=== PATIENT | female | born 1950 | race Caucasian/White ===

== ENCOUNTER 2018-01-31 08:42 | Day surgery (SDC) | payer MEDICARE, SELFPAY ==
[2018-01-31] VITALS (9 sets, daily range): BP systolic 86–135; BP diastolic 41–71; PULSE 76–86; RESP 16–19; TEMP 36.6–37.3; O2SAT 93–96; BMI 28.6
[2018-01-31 09:16] LABS: Bedside Glucose 194 mg/dL (70-110)
--- NOTE | 2018-01-31 09:43 | EGD_PTH ---
PATIENT: TACOS ESPINOZA LOC: EN U#:[id number] AGE/SX: 67/F ROOM: RE01/31/[address]: Dr. Cayden Nesbitt MD : [id number] BED: DIS: 01/31/2018 SPEC #: [id number] RECD: 01/31/18 11:54 STATUS: SO ERIS #: [id number] MELISSA: 01/31/18 09:[address]: Cayden Nesbitt DEPT: SURGICAL PATHOLOGY RECD BY: Marvin Celestin ENTERED: 01/31/18 12:49 SP TYPE: EGD BIOPSY OT DR: Dr. Tae Banegas DO Tissues: A - Small intestine biopsy B - Ascending colon C - COLON BIOPSY Procedures: Trichrome (control) Special Stain Group II Surgery Specimen Level IV HEADER OPERATION: EGD with biopsy, colonoscopy PRE-OP DIAGNOSIS: Gastric reflux, abdomen pain, history colon polyps TISSUE SUBMITTED: A ? Biopsy small bowel, rule out celiac sprue, B ? Polyp, ascending colon biopsy, C ? Random colon biopsy MICROSCOPIC DIAGNOSIS A. Small bowel, biopsy: Fragments of small intestinal mucosa, no pathologic diagnosis. B. Polyp ascending colon, biopsy: Fragments of tubular adenoma. C. Colon, random biopsy: Fragments of colonic mucosa, no pathologic diagnosis. See comment. SJ:wei 02/01/18 COMMENT C. Trichrome stain with matched control was used in the evaluation of the specimen and does not show any significant thickening of subepithelial collagen band. MICROSCOPIC DESCRIPTION Slides are reviewed. GROSS DESCRIPTION A - Received in fixative is one container labeled with the patient's name and designated small bowel biopsy, rule out celiac sprue. The specimen consists of multiple irregular fragments of light arguello soft tissue that in aggregate measure 0.3 x 0.3 x 0.1 cm. The specimen is totally submitted in one cassette. B - Received in fixative is one container labeled with the patient's name and designated polyp, ascending colon biopsy. The specimen consists of multiple irregular fragments of light arguello soft tissue that in aggregate measure 0.5 x 0.3 x 0.1 cm. The specimen is totally submitted in one cassette. C - Received in fixative is one container labeled with the patient's name and designated random colon biopsy. The specimen consists of multiple irregular fragments of light arguello soft tissue that in aggregate measure 1.5 x 0.3 x 0.1 cm. The specimen is totally submitted in one cassette. / SJ:rg 01/31/18 TC:1 CPT: 93945 x3, 96424
--- NOTE | 2018-01-31 09:59 | PCM.OPRPT ---
Problem List (1) Gastro-esophageal reflux disease without esophagitis Status: Acute (2) Epigastric pain Status: Acute (3) Personal history of colonic polyps Status: Acute Report of Operation Date of Procedure: 01/31/18 Pre-Operative Diagnosis: K 21.9 gastroesophageal reflux disease without esophagitis. r10.13 epigastric abdominal pain. Z86.010 personal history of colonic polyps Post-Operative Diagnosis: Same Surgery/Procedure Performed:: 1. 16272 esophagogastroduodenoscopy with biopsy. 2. 30324 colonoscopy with biopsy of polyps and random colon biopsies Type of Anesthesia:: MAC Anesthesiologist: Alessio Pickard Description of Procedure: Patient was brought into the endoscopy suite. Back of her throat was sprayed with Cetacaine spray. A bite-block was placed. She was placed in the left lateral decubitus position. She was given graded anesthesia. Scope was inserted in the back of the oropharynx and directed down through the esophagus into the stomach and into the duodenum without difficulty. Operative findings: 1. Duodenum: Normal appearance no mass lesions biopsy for celiac sprue was obtained there was no ulcers. 2. Stomach: Normal appearance no mass lesions minimal gastritis was identified biopsy for H. pylori was obtained. 3. Esophagus: Z line was located at 36 cm. It was normal. Hiatal hernia with the diaphragmatic hiatus was located at 40 cm. There is no signs of erythema and here. There was no mass lesions here. And there were no Schatzki's ring. Colonoscope was inserted into the rectum and directed through the sigmoid colon, descending colon, transverse colon, ascending colon, to the cecum. Operative findings: 1. Cecum: Normal appearance no mass lesions normal ileocecal valve. There was a small hyperplastic polyp which was ablated completely with biopsy forceps and sent to pathology for permanent sectioning 2. Ascending colon: Normal appearance no mass lesions. 3. Transverse colon: Normal appearance no mass lesions. 4. Descending colon: Normal appearance no mass lesions. 5. Sigmoid colon normal appearance no mass lesions scattered diverticuli identified. 6. Rectum: Normal appearance no mass lesions few internal hemorrhoids were noted on retroflexion. Random colonic biopsies were performed as well. Scope was withdrawn digital rectal exam was performed showing few external hemorrhoids as well. Patient will need another colonoscopy in 3 years. With regards to her upper scope. She is still having persistent and difficulty with this I think she needs to be worked up with a EGD in 48 hour pH probe as well as esophageal manometry. It is unclear whether or not she would benefit from a hiatal hernia surgery but I think it would be monahan for us just to have the data so that we knew if it would be possible to perform on her. - Admit VTE Documentation VTE Present on Admission: No VTE Mechan Device Prophylaxis: None VTE Pharm Prophylaxis ordered?: No Reason prophylaxis not ordered:: Treatment Not Indicated
--- NOTE | 2018-01-31 10:09 | OP.PCM_ITS ---
Problem List (1) Gastro-esophageal reflux disease without esophagitis Status: Acute (2) Epigastric pain Status: Acute (3) Personal history of colonic polyps Status: Acute Report of Operation Date of Procedure: 01/31/18 Pre-Operative Diagnosis: K 21.9 gastroesophageal reflux disease without esophagitis. r10.13 epigastric abdominal pain. Z86.010 personal history of colonic polyps Post-Operative Diagnosis: Same Surgery/Procedure Performed:: 1. 35539 esophagogastroduodenoscopy with biopsy. 2. 20661 colonoscopy with biopsy of polyps and random colon biopsies Type of Anesthesia:: MAC Anesthesiologist: Alessio Pickard Description of Procedure: Patient was brought into the endoscopy suite. Back of her throat was sprayed with Cetacaine spray. A bite-block was placed. She was placed in the left lateral decubitus position. She was given graded anesthesia. Scope was inserted in the back of the oropharynx and directed down through the esophagus into the stomach and into the duodenum without difficulty. Operative findings: 1. Duodenum: Normal appearance no mass lesions biopsy for celiac sprue was obtained there was no ulcers. 2. Stomach: Normal appearance no mass lesions minimal gastritis was identified biopsy for H. pylori was obtained. 3. Esophagus: Z line was located at 36 cm. It was normal. Hiatal hernia with the diaphragmatic hiatus was located at 40 cm. There is no signs of erythema and here. There was no mass lesions here. And there were no Schatzki's ring. Colonoscope was inserted into the rectum and directed through the sigmoid colon , descending colon, transverse colon, ascending colon, to the cecum. Operative findings: 1. Cecum: Normal appearance no mass lesions normal ileocecal valve. There was a small hyperplastic polyp which was ablated completely with biopsy forceps and sent to pathology for permanent sectioning 2. Ascending colon: Normal appearance no mass lesions. 3. Transverse colon: Normal appearance no mass lesions. 4. Descending colon: Normal appearance no mass lesions. 5. Sigmoid colon normal appearance no mass lesions scattered diverticuli identified. 6. Rectum: Normal appearance no mass lesions few internal hemorrhoids were noted on retroflexion. Random colonic biopsies were performed as well. Scope was withdrawn digital rectal exam was performed showing few external hemorrhoids as well. Patient will need another colonoscopy in 3 years. With regards to her upper scope. She is still having persistent and difficulty with this I think she needs to be worked up with a EGD in 48 hour pH probe as well as esophageal manometry. It is unclear whether or not she would benefit from a hiatal hernia surgery but I think it would be monahan for us just to have the data so that we knew if it would be possible to perform on her. - Admit VTE Documentation VTE Present on Admission: No VTE Mechan Device Prophylaxis: None VTE Pharm Prophylaxis ordered?: No Reason prophylaxis not ordered:: Treatment Not Indicated
== END 2018-01-31 10:45 | disposition home or self-care (01) ==
LOC: EN 08:42 → AC 08:43
PROVIDERS: Family Provider Student in an Organized Health Care Education/Training Program; PCP Student in an Organized Health Care Education/Training Program; Visit Provider Surgery
PROC: 0DJD8ZZ Inspection of Lower Intestinal Tract, Via Natural or Artificial Opening Endoscopic (ICD-10-PCS; CPT 45378; principal; 2018-01-31 09:25)
DX: D12.2 Benign neoplasm of ascending colon (principal); K44.9 Diaphragmatic hernia without obstruction or gangrene; K64.4 Residual hemorrhoidal skin tags; K64.8 Other hemorrhoids; K21.9 Gastro-esophageal reflux disease without esophagitis; G43.A0 Cyclical vomiting, in migraine, not intractable; R10.13 Epigastric pain; I12.9 Hypertensive chronic kidney disease with stage 1 through stage 4 chronic kidney disease, or unspecified chronic kidney disease; E11.22 Type 2 diabetes mellitus with diabetic chronic kidney disease; N18.3 Chronic kidney disease, stage 3 (moderate); I25.10 Atherosclerotic heart disease of native coronary artery without angina pectoris; J44.9 Chronic obstructive pulmonary disease, unspecified; E11.42 Type 2 diabetes mellitus with diabetic polyneuropathy; I48.92 Unspecified atrial flutter; E78.00 Pure hypercholesterolemia, unspecified; G25.81 Restless legs syndrome; I73.9 Peripheral vascular disease, unspecified; G62.9 Polyneuropathy, unspecified; F32.9 Major depressive disorder, single episode, unspecified; Z78.0 Asymptomatic menopausal state; Z86.010 Personal history of colon polyps; Z79.4 Long term (current) use of insulin; Z79.01 Long term (current) use of anticoagulants; Z79.891 Long term (current) use of opiate analgesic; Z79.899 Other long term (current) drug therapy; Z85.828 Personal history of other malignant neoplasm of skin; Z85.528 Personal history of other malignant neoplasm of kidney; Z87.19 Personal history of other diseases of the digestive system; Z87.891 Personal history of nicotine dependence; Z95.1 Presence of aortocoronary bypass graft; Z90.5 Acquired absence of kidney
CPT/HCPCS: 43239; 45380; 82962; 88305; 88313; J7120; J2405

== ENCOUNTER 2018-02-27 18:41 | Emergency (ER) | payer MEDICARE, SELFPAY ==
[2018-02-27 18:42] VITALS: BP 146/74; PULSE 117; RESP 22; TEMP 36.2; O2SAT 96; BMI 26.9
--- NOTE | 2018-02-27 19:01 | ED.VISSUMM ---
- ER Visit Summary Date of Service: 02/27/18 Chief Complaint: [] Abdominal pain, vomiting History of Present Illness: The patient is a 67 F [] with a history of cyclic vomiting syndrome complains of nausea and vomiting and abdominal discomfort beginning yesterday. Patient reports she is scheduled to go to [facility] for an experimental trial for this underlying condition March 11. She denies hematemesis. She denies fevers. Denies chest pain. Physical Examination: [] BP 146/74. Temperature 97.1. Heart rate 117. Respiratory rate 22. Pulse ox 96% on room air. She is a 7-year-old female no acute distress. Cardiovascular exam is regular rate and rhythm. Lungs are clear to auscultation. Abdomen is soft with mild diffuse tenderness without guarding rebound tenderness. Remainder of exam is unremarkable. Test Results: [] CBC and BMP within normal limits. LFTs normal. Emergency Department Course and Treatment: [] Patient given intravenous fluids, Phenergan, Dilaudid. On serial examination patient had improvement of symptoms and was discharged to follow-up with her primary care physician. Treatment Plan: [] Follow-up with PCP and [facility] for experimental trials. Disposition: [] Discharge, stable. Impression: [] Abdominal pain Vomiting History of cyclic vomiting syndrome This note was generated with [employer] dictation software. It may contain incorrect words, spelling, and punctuation that were not noted in review of the chart prior to signing ED Disposition - Plan for ED Patient: Chief Complaint: Nausea/Vomiting Referrals: Tae Banegas DO [Primary Care Provider] -
[2018-02-27] MEDS: HYDROmorphone 1 MG/ML Syringe IV (19:04)
[2018-02-27] MEDS: proMETHazine 25 MG/ML Syringe 6.25 MG IV (19:04)
--- NOTE | 2018-02-27 19:04 | ED.DCSUM_ITS ---
- ER Visit Summary Date of Service: 02/27/18 Chief Complaint: [] Abdominal pain, vomiting History of Present Illness: The patient is a 67 F [] with a history of cyclic vomiting syndrome complains of nausea and vomiting and abdominal discomfort beginning yesterday. Patient reports she is scheduled to go to [facility] for an experimental trial for this underlying condition March 11. She denies hematemesis. She denies fevers. Denies chest pain. Physical Examination: [] BP 146/74. Temperature 97.1. Heart rate 117. Respiratory rate 22. Pulse ox 96% on room air. She is a 7-year-old female no acute distress. Cardiovascular exam is regular rate and rhythm. Lungs are clear to auscultation. Abdomen is soft with mild diffuse tenderness without guarding rebound tenderness. Remainder of exam is unremarkable. Test Results: [] CBC and BMP within normal limits. LFTs normal. Emergency Department Course and Treatment: [] Patient given intravenous fluids, Phenergan, Dilaudid. On serial examination patient had improvement of symptoms and was discharged to follow-up with her primary care physician. Treatment Plan: [] Follow-up with PCP and [facility] for experimental trials. Disposition: [] Discharge, stable. Impression: [] Abdominal pain Vomiting History of cyclic vomiting syndrome This note was generated with [employer] dictation software. It may contain incorrect words, spelling, and punctuation that were not noted in review of the chart prior to signing ED Disposition - Plan for ED Patient: Chief Complaint: Nausea/Vomiting Referrals: Tae Banegas DO [Primary Care Provider] -
[2018-02-27 19:19] LABS: Absolute Lymphocyte Count 1.54 X10^3/ul (0.83-4.51); Absolute Neutrophil Count 7.9 X10^3/uL (2.0-7.7); Basophil# 0.01 X10^3/uL; Basophil% 0.1 % (0-1); Eosinophil# 0.01 X10^3/uL; Eosinophils% 0.1 % (0-5); Hematocrit 39.3 % (37-47); Hemoglobin 13.1 g/dl (12.0-15.0); Lymphocyte # 1.54 X10^3/ul (4.0); Lymphocyte % 15.4 % (19-41); Mean Corp Hgb Conc 33.3 g/gl (32-36); Mean Corpuscular Hgb 30.1 pg (27.0-32.0); Mean Corpuscular Volume 90.3 fL (81-99); Mean Platelet Vol. 8.7 fl (6.2-12.0); Monocyte# 0.52 X10^3/uL; Monocyte% 5.2 % (0-10); Neutrophil # 7.89 X10^3/uL (2.7-7.7); Platelet Count 273 K/mm3 (150-450); RBC Distribution Width CV 14.3 % (11.6-14.6); RBC Distribution Width SD 47.1 fl (35.1-43.9); Red Blood Count 4.35 M/mm3 (4.2-5.4)
[2018-02-27 19:21] LABS: POSITIVE COUNT NO; POSITIVE DIFFERENTIAL NO; POSITIVE MORPHOLOGY NO
[2018-02-27 19:31] LABS: AST(SGOT) 22 U/L (15-37); Alanine Aminotransfer ALT/SGPT 20 U/L (13-56); Albumin, Serum 3.8 g/dL (3.2-5.0); Alkaline Phosphatase 94 U/L (45-117); Anion Gap 12 (5-15); BUN 21 mg/dL (7-18); BUN/Creat Ratio 14.1 RATIO (10-20); Chloride 102 mmol/L (98-107); Creatinine, Serum 1.49 mg/dL (0.55-1.02); EST Glomerular Filtration Rate 37 mL/min (>60); Est Glom Filt Rate - Afr Amer 45 mL/min (>60); Estimated Creatinine Clearance 39.34 ml/min; Glucose 161 mg/dL (74-106); Potassium 3.4 mmol/L (3.5-5.1); Protein, Total 7.8 g/dL (6.4-8.2); Sodium Level 140 mmol/L (136-145)
--- NOTE | 2018-02-27 19:45 | ED.DEP ---
ED Disposition - Plan for ED Patient: Disposition: Home or Assisted Living Chief Complaint: Nausea/Vomiting Instructions: When Your Child Has Cyclic Vomiting Syndrome ([facility]), ED Nausea Vomiting Referrals: Tae Banegas DO [Primary Care Provider] -
[2018-02-27] MEDS: HYDROmorphone 0.5 MG/0.5 ML SYRINGE IV (19:52)
[2018-02-27 20:48] VITALS: BP 104/75; PULSE 100; RESP 17; RESP 19
== END 2018-02-27 20:50 | disposition home or self-care (01) ==
PROVIDERS: Emergency Provider Emergency Medicine; Family Provider Student in an Organized Health Care Education/Training Program; PCP Student in an Organized Health Care Education/Training Program
DX: G43.A0 Cyclical vomiting, in migraine, not intractable (principal); I25.10 Atherosclerotic heart disease of native coronary artery without angina pectoris; E11.9 Type 2 diabetes mellitus without complications; I10 Essential (primary) hypertension; Z79.01 Long term (current) use of anticoagulants; Z79.4 Long term (current) use of insulin; Z79.899 Other long term (current) drug therapy; Z85.528 Personal history of other malignant neoplasm of kidney; Z95.1 Presence of aortocoronary bypass graft
CPT/HCPCS: 80053; 85025; 96361; 96374; 96375; 96376; 99283; J7030; J7040; A4216

== ENCOUNTER → 2018-04-08 06:00 | Outpatient (CLI) | payer MEDICARE, SELFPAY ==
--- NOTE | 2018-04-08 08:41 | STRESSREP ---
Stress Test Report Pharmacologic myocardial perfusion stress test. 67-year-old lady with a history of atrial fibrillation and hypertension. Medications Humulin amlodipine atorvastatin metoprolol. Stress protocol: Resting EKG demonstrates normal sinus rhythm with a rate of 81 bpm normal intervals and noted resting blood pressure is 132/74 mmHg. 0.4 mg of regadenoson was infused per usual protocol followed by rapid intravenous saline flush injection continuous EKG monitoring was performed. The maximum heart rate attained was 90 bpm which was 58% maximum predicted heart rate the maximum workload attained was 1 metabolic equivalent. Patient maintained sinus rhythm throughout the recording. The resting blood pressure is 132/74 with a final blood pressure 120/70. Myocardial perfusion protocol. 11.0 mCi of technetium 99m sestamibi was injected. Stress images were obtained stress and rest images were reconstructed and compared in the short axis vertical long and horizontal long axis. Gated images were also obtained. Perfusion SPECT analysis: Review of the stress images demonstrate normal uptake of tracer noted in all areas of the myocardium. The resting images similarly demonstrate normal uptake of tracer noted in all areas of the myocardium. No areas of reversibility are noted suggest ischemia and no previous infarct is noted. Gated SPECT analysis: The gated ejection fraction is 74%. Conclusion: Normal pharmacologic myocardial perfusion stress test with no evidence of ischemia. Preserved ejection fraction.
== END ==
LOC: CVS 06:02
PROVIDERS: Family Provider Student in an Organized Health Care Education/Training Program; PCP Student in an Organized Health Care Education/Training Program; Visit Provider Student in an Organized Health Care Education/Training Program
DX: R06.09 Other forms of dyspnea (principal); I10 Essential (primary) hypertension; I48.2 Chronic atrial fibrillation; I73.9 Peripheral vascular disease, unspecified
CPT/HCPCS: 78452; 93017; A9500; A4216; J2785

== ENCOUNTER 2018-05-05 04:46 | Emergency (ER) | payer MEDICARE, SELFPAY ==
[2018-05-05 04:47] VITALS: BP 159/99; RESP 18; TEMP 36.5; O2SAT 94; BMI 28.3
--- NOTE | 2018-05-05 05:11 | ED.VISSUMM ---
- ER Visit Summary Date of Service: 05/05/18 Chief Complaint: Nausea and vomiting History of Present Illness: The patient is a 67 F with cyclic vomiting syndrome who presents for nausea and vomiting for 4 days. Patient states she is having her usual cyclic vomiting symptoms, with diffuse abdominal pain, nausea and vomiting. She is in an experimental trial with [facility] with an intranasal medication that she states is not working. She has tried Zofran without any relief at home. She has had difficulty with oral intake. No diarrhea, fever, chest pain, shortness of breath, urinary symptoms or other complaints. Patient states this is typical for her cyclic vomiting syndrome and she is not concerned that something else is going on. Physical Examination: Vital signs: afebrile, hemodynamically stable, no hypoxia on room air General: well nourished, well developed, in no distress, appears uncomfortable laying in bed Skin: warm, dry, no rash, no pallor HEENT: normocephalic and atraumatic; PERRL, EOMI, moist mucous membranes Cardiovascular: regular rate and rhythm without murmurs, no peripheral edema, 2+ pulses all distal extremities Respiratory: No increased work of breathing, lungs are clear to auscultation bilaterally, no rales, rhonchi or wheezing Abdominal: Abdomen is soft, nontender with normoactive bowel sounds, no guarding or rebound, no masses MSK: Moves all extremities, no deformities, normal strength Neuro: Awake and alert, oriented ?4. No facial droop, sensation and motor function intact and symmetric Test Results: Abnormal Lab Results 05/05/18 05/05/18 05/05/18 04:56 04:56 05:35 WBC 14.1 H RBC 5.16 Hgb 15.8 H Hct 45.9 MCV 89.0 MCH 30.6 MCHC 34.4 RDW 13.6 RDW Differential 43.5 Plt Count 268 MPV 8.9 Immature Gran % (Auto) 0.100 Neut % (Auto) 81.5 H Lymph % (Auto) 14.1 L [place] % (Auto) 4.0 Eos % (Auto) 0.2 Baso % (Auto) 0.1 Absolute Neuts (auto) 11.5 H Absolute Lymphs (auto) 1.99 Total Counted Not Reportable Sodium Cancelled 134 L Potassium Cancelled 3.1 L Chloride Cancelled 93 L Carbon Dioxide Cancelled 30.0 Anion Gap Cancelled 11 BUN Cancelled 29 H Creatinine Cancelled 1.22 H Estim Creat Clear Calc Cancelled 48.04 Est GFR (MDRD) Af Amer Cancelled 57 L Est GFR (MDRD) Non-Af Cancelled 47 L BUN/Creatinine Ratio Cancelled 23.8 H Glucose Cancelled 198 H Calcium Cancelled 7.2 L Total Bilirubin Cancelled 0.50 AST Cancelled 15 ALT Cancelled 18 Alkaline Phosphatase Cancelled 73 Total Protein Cancelled 6.8 Albumin Cancelled 3.3 Globulin Cancelled 3.5 Albumin/Globulin Ratio Cancelled 0.9 Lipase Cancelled 124 Emergency Department Course and Treatment: Patient presents with cyclic vomiting syndrome, and states that this is very typical for her symptoms. Given that she has been having symptoms for 4 days, lab work was performed to evaluate for any electrolyte derangements. She had mild hypokalemia of 3.1. Otherwise no significant findings. She was given IV fluids for hydration and was given a dose of Haldol for treatment of the abdominal discomfort and nausea. After medication, she had great improvement in her symptoms and stated she felt much better. She was given 1 dose of oral potassium for repletion. She will continue her home medications and treatment as needed. Patient was discharged home in improved condition. Treatment Plan: [] Disposition: [] Impression: Cyclic vomiting syndrome This note was generated with [email or web address] dictation software. It may contain incorrect words, spelling, and punctuation that were not noted in review of the chart prior to signing ED Disposition - Plan for ED Patient: Disposition: Home or Assisted Living Chief Complaint: Nausea/Vomiting Instructions: ED Nausea Vomiting Referrals: Tae Banegas, [Primary Care Provider] - 3-5 Days if not improving Additional Instructions: Please continue your home medications as needed for your vomiting. Follow-up with your doctor if you continue to have poorly controlled symptoms. If you have any worsening of your condition or any new concerning symptoms, please return immediately to the emergency department for another evaluation.
[2018-05-05 05:28] LABS: Absolute Lymphocyte Count 1.99 X10^3/ul (0.83-4.51); Absolute Neutrophil Count 11.5 X10^3/uL (2.0-7.7); Basophil# 0.02 X10^3/uL; Basophil% 0.1 % (0-1); Eosinophil# 0.03 X10^3/uL; Eosinophils% 0.2 % (0-5); Hematocrit 45.9 % (37-47); Hemoglobin 15.8 g/dl (12.0-15.0); Lymphocyte # 1.99 X10^3/ul (4.0); Lymphocyte % 14.1 % (19-41); Mean Corp Hgb Conc 34.4 g/gl (32-36); Mean Corpuscular Hgb 30.6 pg (27.0-32.0); Mean Platelet Vol. 8.9 fl (6.2-12.0); Monocyte# 0.56 X10^3/uL; Neutrophil # 11.49 X10^3/uL (2.7-7.7); Neutrophil % 81.5 % (47-70); POSITIVE COUNT NO; POSITIVE DIFFERENTIAL NO; POSITIVE MORPHOLOGY NO; Platelet Count 268 K/mm3 (150-450); RBC Distribution Width CV 13.6 % (11.6-14.6); RBC Distribution Width SD 43.5 fl (35.1-43.9); Red Blood Count 5.16 M/mm3 (4.2-5.4); White Blood Count 14.1 K/mm3 (4.4-11.0)
[2018-05-05] MEDS: 0.9% Normal Saline 1,000 ML 1000 ML IV (05:29)
[2018-05-05] MEDS: Haloperidol Lactate 5 MG/ML Vial 2 MG IV (05:30)
[2018-05-05 06:21] LABS: ALB/GLOB Ratio 0.9 RATIO (0.9-2.4); AST(SGOT) 15 U/L (15-37); Alanine Aminotransfer ALT/SGPT 18 U/L (13-56); Albumin, Serum 3.3 g/dL (3.2-5.0); Alkaline Phosphatase 73 U/L (45-117); Anion Gap 11 (5-15); BUN 29 mg/dL (7-18); BUN/Creat Ratio 23.8 RATIO (10-20); Calcium,Total 7.2 mg/dL (8.5-10.1); Chloride 93 mmol/L (98-107); Creatinine, Serum 1.22 mg/dL (0.55-1.02); EST Glomerular Filtration Rate 47 mL/min (>60); Est Glom Filt Rate - Afr Amer 57 mL/min (>60); Estimated Creatinine Clearance 48.04 ml/min; Globulin 3.5 g/dL (2.2-4.2); Glucose 198 mg/dL (74-106); Lipase 124 U/L (73-393); Potassium 3.1 mmol/L (3.5-5.1); Protein, Total 6.8 g/dL (6.4-8.2); Sodium Level 134 mmol/L (136-145)
--- NOTE | 2018-05-05 07:04 | ED.DEP ---
ED Disposition - Plan for ED Patient: Disposition: Home or Assisted Living Chief Complaint: Nausea/Vomiting Instructions: ED Nausea Vomiting Referrals: Tae Banegas DO [Primary Care Provider] - 3-5 Days if not improving Additional Instructions: Please continue your home medications as needed for your vomiting. Follow-up with your doctor if you continue to have poorly controlled symptoms. If you have any worsening of your condition or any new concerning symptoms, please return immediately to the emergency department for another evaluation.
[2018-05-05 07:20] VITALS: BP 114/79; PULSE 100; RESP 16; O2SAT 96
== END 2018-05-05 07:21 | disposition home or self-care (01) ==
PROVIDERS: Emergency Provider Emergency Medicine; Family Provider Student in an Organized Health Care Education/Training Program; PCP Student in an Organized Health Care Education/Training Program
DX: G43.A0 Cyclical vomiting, in migraine, not intractable (principal); R10.84 Generalized abdominal pain; I25.10 Atherosclerotic heart disease of native coronary artery without angina pectoris; E11.9 Type 2 diabetes mellitus without complications; I10 Essential (primary) hypertension; Z79.4 Long term (current) use of insulin; Z79.01 Long term (current) use of anticoagulants; Z79.899 Other long term (current) drug therapy; Z87.891 Personal history of nicotine dependence; Z85.528 Personal history of other malignant neoplasm of kidney; E87.6 Hypokalemia
CPT/HCPCS: 80053; 83690; 85025; 96361; 96374; 99285; J7030; A4216

== ENCOUNTER 2018-06-09 17:11 | Emergency (ER) | payer MEDICARE, SELFPAY ==
[2018-06-09 17:12] VITALS: BP 125/76; PULSE 116; RESP 18; TEMP 36.8; O2SAT 95; BMI 41.5
--- NOTE | 2018-06-09 17:34 | EKG12_ITS ---
Test Reason : NASEA AND VOMIT Blood Pressure : / mmHG Vent. Rate : 103 BPM Atrial Rate : 103 BPM P-R Int : 142 ms QRS Dur : 088 ms QT Int : 368 ms P-R-T Axes : 058 057 060 degrees QTc Int : 482 ms Sinus tachycardia with Premature supraventricular complexes Nonspecific ST abnormality Abnormal ECG Confirmed by ALEXANDRA HUMPHREY, EMY ([id number]), editor at large SOLEDAD REESE ([id number] on 06/10/2018 1:01:02 PM Referred By: RALF Confirmed By:EMY MORRIS MD
[2018-06-09] MEDS: 0.9% Normal Saline 1,000 ML 1000 ML IV (17:39)
[2018-06-09] MEDS: proMETHazine 25 MG/ML Syringe 12.5 MG IV (17:40)
[2018-06-09 17:48] VITALS: BP 112/65; BP 112/70; BP 114/84; PULSE 103; PULSE 107; PULSE 121
[2018-06-09 17:52] LABS: Absolute Lymphocyte Count 1.74 X10^3/ul (0.83-4.51); Basophil# 0.01 X10^3/uL; Basophil% 0.1 % (0-1); Eosinophil# 0.03 X10^3/uL; Eosinophils% 0.3 % (0-5); Hematocrit 41.9 % (37-47); Hemoglobin 14.8 g/dl (12.0-15.0); Lymphocyte # 1.74 X10^3/ul (4.0); Lymphocyte % 18.2 % (19-41); Mean Corp Hgb Conc 35.3 g/gl (32-36); Mean Corpuscular Hgb 31.1 pg (27.0-32.0); Mean Platelet Vol. 9.1 fl (6.2-12.0); Monocyte# 0.72 X10^3/uL; Monocyte% 7.5 % (0-10); Neutrophil # 7.04 X10^3/uL (2.7-7.7); Neutrophil % 73.7 % (47-70); POSITIVE COUNT NO; POSITIVE DIFFERENTIAL NO; POSITIVE MORPHOLOGY NO; Platelet Count 307 K/mm3 (150-450); RBC Distribution Width CV 11.7 % (11.6-14.6); RBC Distribution Width SD 37.2 fl (35.1-43.9); Red Blood Count 4.76 M/mm3 (4.2-5.4); White Blood Count 9.6 K/mm3 (4.4-11.0)
[2018-06-09 18:07] LABS: AST(SGOT) 26 U/L (15-37); Alanine Aminotransfer ALT/SGPT 27 U/L (13-56); Alkaline Phosphatase 94 U/L (45-117); Anion Gap 13 (5-15); BUN 38 mg/dL (7-18); BUN/Creat Ratio 22.6 RATIO (10-20); Calcium,Total 9.1 mg/dL (8.5-10.1); Chloride 90 mmol/L (98-107); Creatinine, Serum 1.68 mg/dL (0.55-1.02); EST Glomerular Filtration Rate 32 mL/min (>60); Est Glom Filt Rate - Afr Amer 39 mL/min (>60); Estimated Creatinine Clearance 34.42 ml/min; Globulin 4.1 g/dL (2.2-4.2); Glucose 264 mg/dL (74-106); Lipase 121 U/L (73-393); Potassium 3.3 mmol/L (3.5-5.1); Protein, Total 8.1 g/dL (6.4-8.2); Sodium Level 128 mmol/L (136-145)
[2018-06-09 18:08] LABS: Bacteria 0 SEEN /hpf (None Seen); Mucous, Urine 0 SEEN /hpf (<or=2+)
[2018-06-09 18:27] LABS: Color, Urine Yellow (Yellow); Glucose, Dipstick 50 mg/dl (Normal); Ketone-Dipstick Negative (Negative); Leukocyte Esterase-Dipstick 500 /ul (Negative); Nitrite-Dipstick Negative (Negative); Occult Blood-Urine 10 /ul (Negative); Protein-Dipstick 30 mg/dl (Negative); Specific Gravity, Urine 1.015 (1.002-1.030); Urine Bilirubin Dipstick Negative (Negative); Urine Clarity Sl. Cloudy (Clear); Urine Urobilinogen Normal (Normal); Urine pH 6.5 (5.0 - 8.0)
[2018-06-09 18:33] LABS: Red Blood Cells-Urine 0-5 SEEN /hpf (0-5); Squamous Epithelial Cells - UA 0-5 SEEN /hpf (5-10); White Blood Cells 5-10 SEEN /hpf (0-5)
--- NOTE | 2018-06-09 18:33 | ED.VISSUMM ---
- ER Visit Summary Date of Service: 06/09/18 Chief Complaint: Vomiting] History of Present Illness: The patient is a 68 F ] presents to the emergency department with complaint of vomiting that started a week ago. Patient for the first 2 days also had diarrhea but that has since resolved. Patient has a history of cyclic vomiting syndrome and feels she is having a repeat episode of such. Patient denies any fevers. Patient denies any abdominal pain. Patient had some dysuria earlier in the week but has since resolved. She denies hematuria or frequency. Patient also with history of coronary artery disease, diabetes, hypertension, history of remote kidney cancer. Patient's had prior appendectomy and hysterectomy. 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 Physical Examination: [HEENT-PERRLA, EOMI. Cranial nerves II through XII grossly intact. TMs clear. Mucous membranes slightly dry. No adenopathy. Cardiovascular-regular rate and rhythm without murmur or ectopy Lungs-clear to auscultation, chest wall stable without crepitus or subcu emphysema Abdomen-normoactive bowel sounds, soft, nontender, no rebound or rigidity, no peritoneal signs. Extremities-intact ?4, normal range of motion, normal pulses, atraumatic] Test Results: [CBC with differential obtained showed white blood cell count 9.6, hemoglobin 14.8, hematocrit 42, platelets 307. Chemistry showed a sodium of 128 potassium 3.3, chloride 90, CO2 25, glucose 264, BUN 34, creatinine 1.68. LFTs were normal. Lipase was 121. Troponin was less than 0.015.] Emergency Department Course and Treatment: [Patient was given a liter normal same fluid bolus as well as Phenergan 12.5 mg IV. Patient was able to tolerate a p.o. challenge and is feeling improved.] Treatment Plan: [Patient will be given a prescription for Phenergan tablets and suppositories and advised to push fluids and follow-up with her primary care physician within next 3-5 days. Patient advised to return if persistent vomiting, dehydration, or condition should worsen in any way.] Disposition: [Discharged home in stable condition] Impression: [Vomiting-suspect cyclic vomiting syndrome] This note was generated with [employer] dictation software. It may contain incorrect words, spelling, and punctuation that were not noted in review of the chart prior to signing ED Disposition - Plan for ED Patient: Chief Complaint: Nausea/Vomiting Referrals: Tae Banegas DO [Primary Care Provider] -
[2018-06-09 18:34] LABS: Amorphous Sediment 1+ URATE
--- NOTE | 2018-06-09 18:37 | ED.DCSUM_ITS ---
- ER Visit Summary Date of Service: 06/09/18 Chief Complaint: Vomiting] History of Present Illness: The patient is a 68 F ] presents to the emergency department with complaint of vomiting that started a week ago. Patient for the first 2 days also had diarrhea but that has since resolved. Patient has a history of cyclic vomiting syndrome and feels she is having a repeat episode of such. Patient denies any fevers. Patient denies any abdominal pain. Patient had some dysuria earlier in the week but has since resolved. She denies hematuria or frequency. Patient also with history of coronary artery disease, diabetes, hypertension, history of remote kidney cancer. Patient's had prior appendectomy and hysterectomy. 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 Physical Examination: [HEENT-PERRLA, EOMI. Cranial nerves II through XII grossly intact. TMs clear. Mucous membranes slightly dry. No adenopathy. Cardiovascular-regular rate and rhythm without murmur or ectopy Lungs-clear to auscultation, chest wall stable without crepitus or subcu emphysema Abdomen-normoactive bowel sounds, soft, nontender, no rebound or rigidity, no peritoneal signs. Extremities-intact ?4, normal range of motion, normal pulses, atraumatic] Test Results: [CBC with differential obtained showed white blood cell count 9.6 , hemoglobin 14.8, hematocrit 42, platelets 307. Chemistry showed a sodium of 128 potassium 3.3, chloride 90, CO2 25, glucose 264, BUN 34, creatinine 1.68. LFTs were normal. Lipase was 121. Troponin was less than 0.015.] Emergency Department Course and Treatment: [Patient was given a liter normal same fluid bolus as well as Phenergan 12.5 mg IV. Patient was able to tolerate a p.o. challenge and is feeling improved.] Treatment Plan: [Patient will be given a prescription for Phenergan tablets and suppositories and advised to push fluids and follow-up with her primary care physician within next 3-5 days. Patient advised to return if persistent vomiting, dehydration, or condition should worsen in any way.] Disposition: [Discharged home in stable condition] Impression: [Vomiting-suspect cyclic vomiting syndrome] This note was generated with [employer] dictation software. It may contain incorrect words, spelling, and punctuation that were not noted in review of the chart prior to signing ED Disposition - Plan for ED Patient: Chief Complaint: Nausea/Vomiting Referrals: Tae Banegas DO [Primary Care Provider] -
--- NOTE | 2018-06-09 18:37 | ED.DEP ---
ED Disposition - Plan for ED Patient: Chief Complaint: Nausea/Vomiting Instructions: ED Nausea Vomiting Prescriptions: proMETHazine suppository [Phenergan Suppository] 25 mg RECTAL Q6H PRN PRN #6 suppos. PRN Reason: Nausea proMETHazine tablet [Phenergan] 25 mg PO Q6H PRN PRN #10 tab PRN Reason: Nausea Referrals: Tae Banegas DO [Primary Care Provider] - 3-5 Days
--- NOTE | 2018-06-09 19:02 | ED.RN ---
REVIEWED D/C INSTRUCTIONS, FOLLOW UP CARE, PRESCRIPTIONS, AND S/S THAT WOULD WARRANT A RETURN TO THE ED WITH PT. PT VERBALIZED AN UNDERSTANDING AND DENIES FURTHER QUESTIONS FOR THIS RN. PT SKIN P/W/D, RESP EVEN AND UNLABORED, PT A&O X 3, NO DISTRESS NOTED. PT AMBULATED OUT OF ED, GAIT STEADY.
== END 2018-06-09 19:03 | disposition home or self-care (01) ==
PROVIDERS: Emergency Provider Emergency Medicine; Family Provider Student in an Organized Health Care Education/Training Program; PCP Student in an Organized Health Care Education/Training Program
DX: G43.A0 Cyclical vomiting, in migraine, not intractable (principal); I25.10 Atherosclerotic heart disease of native coronary artery without angina pectoris; E11.9 Type 2 diabetes mellitus without complications; I10 Essential (primary) hypertension; Z79.01 Long term (current) use of anticoagulants; Z79.4 Long term (current) use of insulin; Z79.891 Long term (current) use of opiate analgesic; Z79.899 Other long term (current) drug therapy; Z85.528 Personal history of other malignant neoplasm of kidney; Z87.891 Personal history of nicotine dependence; Z95.1 Presence of aortocoronary bypass graft; Z90.710 Acquired absence of both cervix and uterus
CPT/HCPCS: 80053; 81001; 83690; 84484; 85025; 87086; 87088; 93005; 96361; 96374; 99283; J7030; A4216

== ENCOUNTER 2018-07-30 10:44 | Emergency (ER) | payer MEDICARE, SELFPAY ==
[2018-07-30 10:45] VITALS: BP 117/73; PULSE 110; RESP 18; TEMP 37.1; O2SAT 98; BMI 26.4
--- NOTE | 2018-07-30 11:14 | EKG12_ITS ---
Test Reason : NAUSEA/VOMITING Blood Pressure : / mmHG Vent. Rate : 099 BPM Atrial Rate : 099 BPM P-R Int : 150 ms QRS Dur : 088 ms QT Int : 398 ms P-R-T Axes : 050 019 042 degrees QTc Int : 510 ms Sinus rhythm with marked sinus arrhythmia Prolonged QT Abnormal ECG Confirmed by ALEXANDRA HUMPHREY, EMY ([id number]), index editor SOLEDAD REESE ([id number] on 08/02/2018 1:06:31 PM Referred By: EVERARDO Confirmed By:EMY MORRIS MD
[2018-07-30 11:42] LABS: Bacteria 0 SEEN /hpf (None Seen); Mucous, Urine 0 SEEN /hpf (<or=2+); Red Blood Cells-Urine 0 SEEN /hpf (0-5)
[2018-07-30 11:47] LABS: Color, Urine Yellow (Yellow); Glucose, Dipstick Normal (Normal); Ketone-Dipstick 5 mg/dl (Negative); Leukocyte Esterase-Dipstick 25 /ul (Negative); Nitrite-Dipstick Negative (Negative); Occult Blood-Urine 10 /ul (Negative); Protein-Dipstick 30 mg/dl (Negative); Urine Bilirubin Dipstick Negative (Negative); Urine Clarity Clear (Clear); Urine Urobilinogen Normal (Normal)
[2018-07-30 11:48] LABS: Basophil# 0.02 X10^3/uL; Basophil% 0.2 % (0-1); Eosinophil# 0.05 X10^3/uL; Eosinophils% 0.4 % (0-5); Hematocrit 37.9 % (37-47); Hemoglobin 13.7 g/dl (12.0-15.0); Lymphocyte % 15.6 % (19-41); Mean Corp Hgb Conc 36.1 g/gl (32-36); Mean Corpuscular Hgb 31.7 pg (27.0-32.0); Mean Corpuscular Volume 87.7 fL (81-99); Mean Platelet Vol. 9.2 fl (6.2-12.0); Monocyte% 5.2 % (0-10); Neutrophil # 9.01 X10^3/uL (2.7-7.7); Neutrophil % 78.3 % (47-70); POSITIVE COUNT NO; POSITIVE DIFFERENTIAL NO; POSITIVE MORPHOLOGY NO; Platelet Count 399 K/mm3 (150-450); RBC Distribution Width CV 12.1 % (11.6-14.6); RBC Distribution Width SD 38.1 fl (35.1-43.9); Red Blood Count 4.32 M/mm3 (4.2-5.4); White Blood Count 11.5 K/mm3 (4.4-11.0)
[2018-07-30 11:52] LABS: AST(SGOT) 18 U/L (15-37); Alanine Aminotransfer ALT/SGPT 21 U/L (13-56); Albumin, Serum 3.8 g/dL (3.2-5.0); Alkaline Phosphatase 90 U/L (45-117); Anion Gap 12 (5-15); BUN 37 mg/dL (7-18); BUN/Creat Ratio 21.8 RATIO (10-20); Calcium,Total 8.2 mg/dL (8.5-10.1); Chloride 91 mmol/L (98-107); EST Glomerular Filtration Rate 32 mL/min (>60); Est Glom Filt Rate - Afr Amer 39 mL/min (>60); Estimated Creatinine Clearance 34.02 ml/min; Globulin 3.7 g/dL (2.2-4.2); Glucose 174 mg/dL (74-106); Lipase 216 U/L (73-393); Potassium 3.2 mmol/L (3.5-5.1); Protein, Total 7.5 g/dL (6.4-8.2); Sodium Level 130 mmol/L (136-145)
[2018-07-30 11:55] LABS: Squamous Epithelial Cells - UA 0-5 SEEN /hpf (5-10); White Blood Cells 0-5 SEEN /hpf (0-5)
[2018-07-30] MEDS: 0.9% Normal Saline 1,000 ML 1000 ML IV (12:17)
[2018-07-30] MEDS: ChlorproMAZINE 50 MG/2 ML Ampul 40 MG IV (12:17)
[2018-07-30] MEDS: Dicyclomine 10 MG Capsule 20 MG PO (12:51)
--- NOTE | 2018-07-30 13:53 | ED.RN ---
PT STATES THAT MEDICINE MADE MY RESTLESS LEGS ACT UP, I CAN'T SIT HERE. PT REQUESTING TO LEAVE. PT MADE AWARE THAT THIS RN WILL SPEAK TO DOCTOR AND DOCTOR WILL GIVE D/C PAPERS. PT REFUSES TO WAIT. IV REMOVED. PT AMBULATED OUT OF ED PRIOR TO RECEIVING D/C INSTRUCTIONS. PT SKIN P/W/D, RESP EVEN AND UNLABORED, PT A&O X 3, NO DISTRESS NOTED.
--- NOTE | 2018-07-30 13:53 | ED.VISSUMM ---
- ER Visit Summary Date of Service: 07/30/18 Chief Complaint: Nausea vomiting History of Present Illness: The patient is a 68 F who has had nausea vomiting off and on for 2 weeks. She has a history of cyclic vomiting syndrome. She saw her masonry installer on Wednesday. She is unsure of the medications that she is taking but she states that she starts 1 of the medicines that she uses for her cyclic vomiting. She denies any recent marijuana use. She has been to several ERs recently for the same complaints. No fevers. She notes normal bowel movements. She states she urinated this morning it seemed okay. The patient has a history of chronic kidney disease. Physical Examination: 117/73 heart rate of 110 in triage (99 in the room) respirations are 18 pulse ox 90% Gen: Well-nourished well-developed Head: Normocephalic atraumatic Eyes: Perrl EOMI ENT: TMs clear no rhinorrhea moist mucous membranes Neck: Supple no lymphadenopathy no JVD nontender CVS: Regular rate and tachycardic rhythm no murmurs normal S1-S2 Respiratory: No distress clear to auscultation bilaterally chest nontender Abdomen: Soft tender to palpation without guarding or rebound nondistended normal bowel sounds no masses Back: Nontender Extremity: Nontender no edema Skin: Normal color no rash Neuro: alert orientated ?3 CN II-XII intact normal strength sensation reflexes gait cerebellar Psych: Normal affect normal mood Test Results: CBC CMP and lipase and urinalysis demonstrated creatinine 1.7 with a BUN of 37. Potassium three-point. Sodium of 130. EKG demonstrates a sinus rhythm at a rate of 99 Emergency Department Course and Treatment: Patient received IV fluids. She also received Thorazine. She requested something for pain and I gave her Bentyl. The patient has subsequently left the emergency department stating that her restless leg was acting up and she needed to leave. She left prior to discharge. Impression: 1. Cyclic vomiting 2. Hypokalemia 3. Hyponatremia 4. Chronic kidney disease This note was generated with [employer] dictation software. It may contain incorrect words, spelling, and punctuation that were not noted in review of the chart prior to signing ED Disposition - Plan for ED Patient: Chief Complaint: Nausea/Vomiting Referrals: Tae Banegas DO [Primary Care Provider] -
--- NOTE | 2018-07-30 13:57 | ED.DCSUM_ITS ---
- ER Visit Summary Date of Service: 07/30/18 Chief Complaint: Nausea vomiting History of Present Illness: The patient is a 68 F who has had nausea vomiting off and on for 2 weeks. She has a history of cyclic vomiting syndrome. 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 She is unsure of the medications that she is taking but she states that she starts 1 of the medicines that she uses for her cyclic vomiting. She denies any recent marijuana use. She has been to several ERs recently for the same complaints. No fevers. She notes normal bowel movements. She states she urinated this morning it seemed okay. The patient has a history of chronic kidney disease. Physical Examination: 117/73 heart rate of 110 in triage (99 in the room) respirations are 18 pulse ox 90% Gen: Well-nourished well-developed Head: Normocephalic atraumatic Eyes: Perrl EOMI ENT: TMs clear no rhinorrhea moist mucous membranes Neck: Supple no lymphadenopathy no JVD nontender CVS: Regular rate and tachycardic rhythm no murmurs normal S1-S2 Respiratory: No distress clear to auscultation bilaterally chest nontender Abdomen: Soft tender to palpation without guarding or rebound nondistended normal bowel sounds no masses Back: Nontender Extremity: Nontender no edema Skin: Normal color no rash Neuro: alert orientated ?3 CN II-XII intact normal strength sensation reflexes gait cerebellar Psych: Normal affect normal mood Test Results: CBC CMP and lipase and urinalysis demonstrated creatinine 1.7 with a BUN of 37. Potassium three-point. Sodium of 130. EKG demonstrates a sinus rhythm at a rate of 99 Emergency Department Course and Treatment: Patient received IV fluids. She also received Thorazine. She requested something for pain and I gave her Bentyl. The patient has subsequently left the emergency department stating that her restless leg was acting up and she needed to leave. She left prior to discharge. Impression: 1. Cyclic vomiting 2. Hypokalemia 3. Hyponatremia 4. Chronic kidney disease This note was generated with [employer] dictation software. It may contain incorrect words, spelling, and punctuation that were not noted in review of the chart prior to signing ED Disposition - Plan for ED Patient: Chief Complaint: Nausea/Vomiting Referrals: Tae Banegas DO [Primary Care Provider] -
== END 2018-07-30 13:56 | disposition home or self-care (01) ==
LOC: ED 11:18
PROVIDERS: Emergency Provider Emergency Medicine; Family Provider Student in an Organized Health Care Education/Training Program; PCP Student in an Organized Health Care Education/Training Program
DX: G43.A0 Cyclical vomiting, in migraine, not intractable (principal); E87.6 Hypokalemia; E87.1 Hypo-osmolality and hyponatremia; I12.9 Hypertensive chronic kidney disease with stage 1 through stage 4 chronic kidney disease, or unspecified chronic kidney disease; E11.22 Type 2 diabetes mellitus with diabetic chronic kidney disease; N18.9 Chronic kidney disease, unspecified; I48.92 Unspecified atrial flutter; Z79.01 Long term (current) use of anticoagulants; Z79.4 Long term (current) use of insulin; Z79.899 Other long term (current) drug therapy; Z87.891 Personal history of nicotine dependence; Z95.1 Presence of aortocoronary bypass graft
CPT/HCPCS: 80053; 81001; 83690; 85025; 93005; 96361; 96374; 99282; J7030; A4216

== ENCOUNTER 2019-01-08 14:21 | Emergency (ER) | payer MEDICARE, SELFPAY ==
[2019-01-08 14:21] VITALS: BP 146/97; PULSE 127; RESP 18; TEMP 36.5; O2SAT 99; BMI 23.6
--- NOTE | 2019-01-08 14:38 | ED.VISSUMM ---
- ER Visit Summary Date of Service: 01/08/19 Chief Complaint: Nausea and vomiting History of Present Illness: The patient is a 68 F who presents with nausea and vomiting that has been constant for the past 4 days. Patient states she has a history of cyclic vomiting syndrome. She states she takes medications at home for that but is unable to keep them down. Patient denies any diarrhea. Patient admits to diffuse abdominal pain. Patient describes the pain as aching. Patient states nothing makes it better or worse. Patient denies any urinary complaints. Patient states promethazine and Zofran usually help with her nausea and vomiting. Physical Examination: Vital signs are stable. Patient is afebrile. Patient is in no acute distress. Oral mucosa is pink and moist. Neck is supple. Trachea is midline. There is no JVD noted. Heart was regular and tachycardic. Lungs are clear and equal bilateral. Abdomen is soft. Bowel sounds are normal. There is diffuse tenderness. There is no rebound or guarding noted. Skin is warm dry. Cranial nerves II through XII are intact. There are no focal motor or sensory deficits noted. The remaining physical exam is within normal limits. Test Results: CBC and comprehensive metabolic profile were obtained. Creatinine was elevated at 1.89 but this is chronic for the patient. Emergency Department Course and Treatment: Patient was given IV fluids, promethazine, and morphine. Patient states her pain improved but she still felt nauseated. Patient was given a dose of Zofran here. Patient was instructed to follow-up with her primary care physician in 5-7 days. Patient was instructed to continue her home medications. Patient understood and was agreeable with the plan. All questions were answered. Disposition: Discharge home Impression: Nausea and vomiting This note was generated with [employer] dictation software. It may contain incorrect words, spelling, and punctuation that were not noted in review of the chart prior to signing ED Disposition - Plan for ED Patient: Disposition: Home or Assisted Living Diagnosis: Nausea and vomiting Instructions: ED Nausea Vomiting Referrals: Tae Banegas DO [Primary Care Provider] -
[2019-01-08] MEDS: Morphine 2 MG/ML Syringe IV (14:57)
[2019-01-08] MEDS: proMETHazine 25 MG/ML Syringe 6.25 MG IV (14:57)
[2019-01-08] MEDS: 0.9% Normal Saline 1,000 ML 1000 ML IV (14:57)
[2019-01-08 14:59] LABS: Absolute Lymphocyte Count 1.97 X10^3/ul (0.83-4.51); Absolute Neutrophil Count 7.4 X10^3/uL (2.0-7.7); Basophil# 0.03 X10^3/uL; Basophil% 0.3 % (0-1); Eosinophil# 0.07 X10^3/uL; Eosinophils% 0.7 % (0-5); Hematocrit 45.1 % (37-47); Hemoglobin 15.6 g/dl (12.0-15.0); Lymphocyte # 1.97 X10^3/ul (4.0); Mean Corp Hgb Conc 34.6 g/gl (32-36); Mean Corpuscular Hgb 31.8 pg (27.0-32.0); Mean Corpuscular Volume 91.9 fL (81-99); Mean Platelet Vol. 9.4 fl (6.2-12.0); Monocyte# 0.92 X10^3/uL; Monocyte% 8.9 % (0-10); Neutrophil # 7.38 X10^3/uL (2.7-7.7); Neutrophil % 70.9 % (47-70); Platelet Count 310 K/mm3 (150-450); RBC Distribution Width CV 12.4 % (11.6-14.6); RBC Distribution Width SD 41.3 fl (35.1-43.9); Red Blood Count 4.91 M/mm3 (4.2-5.4); White Blood Count 10.4 K/mm3 (4.4-11.0)
[2019-01-08 15:15] LABS: BUN 31 mg/dL (7-18); Creatinine, Serum 1.89 mg/dL (0.55-1.02); EST Glomerular Filtration Rate 28 mL/min (>60); Glucose 281 mg/dL (74-106)
[2019-01-08 15:16] LABS: ALB/GLOB Ratio 1.1 RATIO (0.9-2.4); AST(SGOT) 22 U/L (15-37); Alanine Aminotransfer ALT/SGPT 27 U/L (13-56); Alkaline Phosphatase 105 U/L (45-117); Anion Gap 13 (5-15); BUN/Creat Ratio 16.4 RATIO (10-20); Calcium,Total 9.3 mg/dL (8.5-10.1); Chloride 91 mmol/L (98-107); Est Glom Filt Rate - Afr Amer 34 mL/min (>60); Globulin 3.7 g/dL (2.2-4.2); Lipase 158 U/L (73-393); Potassium 3.2 mmol/L (3.5-5.1); Protein, Total 7.7 g/dL (6.4-8.2); Sodium Level 131 mmol/L (136-145)
[2019-01-08 16:04] LABS: POSITIVE COUNT NO; POSITIVE DIFFERENTIAL NO; POSITIVE MORPHOLOGY NO
[2019-01-08 16:18] VITALS: BP 135/85; PULSE 95; RESP 14; O2SAT 98
== END 2019-01-08 16:27 | disposition home or self-care (01) ==
PROVIDERS: Emergency Provider Emergency Medicine; Family Provider Student in an Organized Health Care Education/Training Program; PCP Student in an Organized Health Care Education/Training Program
DX: R11.2 Nausea with vomiting, unspecified (principal); R10.84 Generalized abdominal pain; R00.0 Tachycardia, unspecified; R51 Headache; I25.10 Atherosclerotic heart disease of native coronary artery without angina pectoris; I48.92 Unspecified atrial flutter; J44.9 Chronic obstructive pulmonary disease, unspecified; N19 Unspecified kidney failure; E11.9 Type 2 diabetes mellitus without complications; I10 Essential (primary) hypertension; K21.9 Gastro-esophageal reflux disease without esophagitis; Z79.4 Long term (current) use of insulin; Z79.899 Other long term (current) drug therapy; Z87.891 Personal history of nicotine dependence; Z95.1 Presence of aortocoronary bypass graft
CPT/HCPCS: 80053; 83690; 85025; 96361; 96374; 96375; 99284; J7030; A4216

== ENCOUNTER 2019-01-10 15:20 | Observation (INO) | payer MEDICARE, SELFPAY ==
[2019-01-10 15:21] VITALS: BP 121/70; PULSE 111; RESP 18; TEMP 36.9; O2SAT 98; BMI 25.1
--- NOTE | 2019-01-10 15:44 | EKG12_ITS ---
Test Reason : AB PAIN Blood Pressure : / mmHG Vent. Rate : 078 BPM Atrial Rate : 078 BPM P-R Int : 148 ms QRS Dur : 088 ms QT Int : 406 ms P-R-T Axes : 073 039 036 degrees QTc Int : 462 ms Sinus rhythm with Premature supraventricular complexes Nonspecific ST abnormality Abnormal ECG Confirmed by MARSHAL HUMPHREY, JARROD ([id number]), international editorial producer SOLEDAD REESE ([id number] on 01/12/2019 1:29:32 PM Referred By: Peter Llamas Confirmed By:JARROD ARAYA MD
--- NOTE | 2019-01-10 15:47 | ED.DCSUM_ITS ---
- ER Visit Summary Date of Service: 01/10/19 Chief Complaint: [Vomiting] History of Present Illness: The patient is a 68 F [presents to the emergency department complaint of vomiting that started 2 weeks ago. Patient states that she is had vomiting off and on. Patient tells me she has a history of cyclic vomiting syndrome and this feels like a typical flareup. Patient was seen 2 days ago in this emergency department evaluated for same. Patient does describe some diffuse abdominal discomfort which is typical of her symptoms. Patient states that she is been thrown up about once every hour. Patient denies any blood in her vomitus. She denies any diarrhea. She denies any black or tarry stools. Patient has not had any significant chest discomfort although she at times feels slightly short of breath. Patient does have a history of some COPD, diabetes, hypertension, GERD, chronic kidney disease, a flutter, and cyclic vomiting.] Physical Examination: [HEENT-PERRLA, EOMI. Cranial nerves II through XII grossly intact. TMs clear. Mucous membranes dry. No adenopathy. Cardiovascular-regular and slightly tachycardic. No murmurs auscultated. Lungs-clear to auscultation, chest wall stable without crepitus or subcu emphysema Abdomen-normoactive bowel sounds, soft. Patient has some mild diffuse tenderness. There is no rebound, rigidity, or perineal signs. Extremities-intact ?4, normal range of motion, normal pulses, atraumatic] Test Results: [CBC with differential count 10.9, hemoglobin 15.7, hematocrit 45, platelets 322. Chemistries unremarkable. BUN was 32 and creatinine 1.44. Troponin was less than 0.015. Urinalysis was normal.] Emergency Department Course and Treatment: [Patient was medicated with IV fluids and given Phenergan 12.5 mg IV. Patient continued complaint of nausea and was given another dose of Phenergan.] Treatment Plan: [Patient continues to complain of nausea therefore she will be admitted for further management] Disposition: [Admit] Impression: [Intractable nausea and vomiting] This note was generated with [employer] dictation software. It may contain incorrect words, spelling, and punctuation that were not noted in review of the chart prior to signing ED Disposition - Plan for ED Patient: Referrals: Tae Banegas DO [Primary Care Provider] -
[2019-01-10 16:09] VITALS: PULSE 98; RESP 15; O2SAT 98
[2019-01-10] MEDS: 0.9% Normal Saline 1,000 ML 1000 ML IV (16:39)
[2019-01-10] MEDS: proMETHazine 25 MG/ML Syringe 12.5 MG IV ×2 (16:39→19:29)
[2019-01-10 16:45] LABS: Absolute Lymphocyte Count 2.38 X10^3/ul (0.83-4.51); Absolute Neutrophil Count 7.7 X10^3/uL (2.0-7.7); Basophil# 0.03 X10^3/uL; Basophil% 0.3 % (0-1); Eosinophil# 0.03 X10^3/uL; Eosinophils% 0.3 % (0-5); Hematocrit 44.9 % (37-47); Hemoglobin 15.7 g/dl (12.0-15.0); Lymphocyte # 2.38 X10^3/ul (4.0); Lymphocyte % 21.9 % (19-41); Mean Corpuscular Hgb 31.8 pg (27.0-32.0); Mean Corpuscular Volume 90.9 fL (81-99); Mean Platelet Vol. 9.4 fl (6.2-12.0); Monocyte# 0.72 X10^3/uL; Monocyte% 6.6 % (0-10); Neutrophil # 7.65 X10^3/uL (2.7-7.7); Neutrophil % 70.5 % (47-70); Platelet Count 322 K/mm3 (150-450); RBC Distribution Width CV 12.2 % (11.6-14.6); RBC Distribution Width SD 39.8 fl (35.1-43.9); Red Blood Count 4.94 M/mm3 (4.2-5.4); White Blood Count 10.9 K/mm3 (4.4-11.0)
[2019-01-10 16:48] LABS: POSITIVE COUNT NO; POSITIVE DIFFERENTIAL NO; POSITIVE MORPHOLOGY NO
[2019-01-10 17:05] LABS: AST(SGOT) 47 U/L (15-37); Alanine Aminotransfer ALT/SGPT 28 U/L (13-56); Alkaline Phosphatase 95 U/L (45-117); Anion Gap 9 (5-15); BUN 32 mg/dL (7-18); BUN/Creat Ratio 22.2 RATIO (10-20); Calcium,Total 9.2 mg/dL (8.5-10.1); Chloride 95 mmol/L (98-107); Creatinine, Serum 1.44 mg/dL (0.55-1.02); EST Glomerular Filtration Rate 39 mL/min (>60); Est Glom Filt Rate - Afr Amer 47 mL/min (>60); Estimated Creatinine Clearance 40.16 ml/min; Glucose 188 mg/dL (74-106); Lipase 125 U/L (73-393); Potassium 4.8 mmol/L (3.5-5.1); Sodium Level 131 mmol/L (136-145)
[2019-01-10 17:24] LABS: Lactic Acid 1.8 mmol/L (0.4-2.0)
[2019-01-10] MEDS: Morphine 4 MG/ML Syringe IV (17:26)
[2019-01-10 19:33] VITALS: BP 126/76; PULSE 93; RESP 12; O2SAT 100
[2019-01-10 20:27] LABS: Bacteria 0 SEEN /hpf (None Seen); Color, Urine Yellow (Yellow); Glucose, Dipstick 50 mg/dl (Normal); Ketone-Dipstick 5 mg/dl (Negative); Leukocyte Esterase-Dipstick 25 /ul (Negative); Mucous, Urine 0 SEEN /hpf (<or=2+); Nitrite-Dipstick Negative (Negative); Occult Blood-Urine Negative /ul (Negative); Protein-Dipstick 15 mg/dl (Negative); Red Blood Cells-Urine 0 SEEN /hpf (0-5); Urine Bilirubin Dipstick Negative (Negative); Urine Clarity Clear (Clear); Urine Urobilinogen Normal (Normal)
[2019-01-10 20:38] LABS: Squamous Epithelial Cells - UA 0-5 SEEN /hpf (5-10); White Blood Cells 0-5 SEEN /hpf (0-5)
[2019-01-10 21:05] VITALS: BP 122/85; PULSE 108; RESP 14; O2SAT 100
--- NOTE | 2019-01-10 21:22 | HP.PCM_ITS ---
Problem List (1) Intractable nausea and vomiting Status: Acute (2) Hypertension Status: Chronic (3) Type II diabetes mellitus Status: Chronic History of Present Illness Date of Admission: 01/10/19 Chief Complaint: nausea and vomiting The patient is a 68 year old F with a significant history of diabetes mellitus; COPD; hypertension; right kidney cancer status post partial nephrectomy; A flutter; GERD and cyclic vomiting syndrome who presented with 2-week history of persistent nausea and vomiting. She reports that for every 1 hour she vomit at least once. Patient was at the ED 2 days ago and was treated and discharged. However his symptoms remain persistent on home Zofran and Phenergan for which reason she returned back to the emergency department. The emergency department patient was given morphine sulfate; Phenergan and normal saline IVF bolus. Past Medical History Past Medical History (Chronic Problems): Chronic Problems (Last Reviewed 01/11/19 @ 00:03 by Peter Llamas MD) Chronic kidney disease, stage 3 (Chronic) Status post coronary artery bypass graft (Chronic) Hypertension (Chronic) Type II diabetes mellitus (Chronic) Coronary artery disease (Chronic) cabg 1992 Atrial flutter (Chronic) History of partial nephrectomy (Chronic) for malignant tumor 2014 [facility] Mild chronic obstructive pulmonary disease (Chronic) Medical History: Medical History (Last Reviewed 01/11/19 @ 00:11 by Peter Llamas MD) S/p nephrectomy (Acute) Z90.5 Right 06/2015 Tubular adenoma (Acute) D36.9 Peripheral vascular disease (Acute) I73.9 Peripheral neuropathy (Acute) G62.9 Esophageal reflux (Acute) K21.9 Diverticulosis of colon (without mention of hemorrhage) (Acute) K57.30 Diaphragmatic hernia without mention of obstruction or gangrene (Acute) K44.9 Benign neoplasm of colon (Acute) D12.6 Intractable nausea and vomiting (Acute) R11.2 Acute on chronic renal failure (Acute) N17.9, N18.9 Chronic kidney disease, stage 3 (Chronic) N18.3 Hypertension (Chronic) I10 Type II diabetes mellitus (Chronic) E11.9 Coronary artery disease (Chronic) I25.10 cabg 1992 Atrial flutter (Chronic) I48.92 Mild chronic obstructive pulmonary disease (Chronic) J44.9 Allergies diphenhydramine HCl [From Benadryl] Adverse Reaction (Verified 01/10/19 15:21) Other metoclopramide [From Reglan] Adverse Reaction (Verified 01/10/19 15:21) Other Home Medications: Ambulatory Orders Medication Instructions Recorded Amlodipine [Norvasc] 10 mg PO DAILY 07/31/17 Atorvastatin Calcium [Lipitor] 80 mg PO DAILY 07/31/17 Insulin NPH Hum/Reg Insulin Hm 22 unit SQ BID 07/31/17 [Humulin 70-30 Vial] Losartan Potassium [Cozaar] 100 mg PO DAILY 07/31/17 Metoprolol(XL)Succ [Toprol Xl 50 mg PO DAILY 07/31/17 (Beta Zakia)] Rivaroxaban [Xarelto] 15 mg PO DAILY 07/31/17 Ropinirole HCl [Requip Xl] 4 mg PO BID 07/31/17 aluminum-mag hydroxide-simethicone 10 ml PO 4X/DAY 01/17/18 200 mg-200 mg-20 mg/5 mL oral susp esomeprazole magnesium 40 mg 40 mg PO DAILY cap 01/17/18 capsule,delayed release Nortriptyline HCl 10 mg PO DAILY 06/09/18 Sumatriptan [Imitrex] 5 mg NS .X1 PRN PRN 06/09/18 Escitalopram Oxalate [Lexapro] 10 mg PO DAILY 07/30/18 Oxycodone HCl/Acetaminophen 1 tablet PO Q8 PRN 07/30/18 [Percocet 7.5-325 mg Tablet] Ranitidine [Zantac] 300 mg PO DAILY 07/30/18 Cholecalciferol (Vitamin D3) 50,000 unit PO QWEEK 01/10/19 [Vitamin D] Docusate Sodium [Stool Softener] 100 mg PO BID 01/10/19 Furosemide [Lasix] 20 mg PO DAILY 01/10/19 Magnesium Oxide [Magnesium] 400 mg PO BID 01/10/19 Mirtazapine [Remeron] 15 mg PO QHS 01/10/19 Oxybutynin [Ditropan] 10 mg PO DAILY 01/10/19 Surgical History: Surgical History (Last Reviewed 01/11/19 @ 00:11 by Peter Llamas MD) S/P laminectomy with spinal fusion (Acute) Z98.1 1992 History of bladder surgery (Acute) Z98.890 Vesica urethral suspension 1996 S/P hysterectomy (Acute) Z90.710 1996 History of esophagogastroduodenoscopy (EGD) (Acute) Z98.890 02/10/2012, 08/21/2009, 03/05/2016 S/P colonoscopy (Acute) Z98.890 05/05/2004, 08/21/2009, 12/26/2014 Status post coronary artery bypass graft (Chronic) Z95.1 History of partial nephrectomy (Chronic) Z90.5 for malignant tumor 2014 [facility] History of esophagogastroduodenoscopy (EGD) Onset Date: ~01/2018 Z98.890 S/P colonoscopy Onset Date: ~01/2018 Z98.890 Surgical History: coronary bypass surgery, hysterectomy, - - Back surgery. 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 MEDIATOR History: No pertinent PUBLIC EMPLOYMENT MEDIATOR history Lives: With Family Smoking Status: Former smoker - *Family History Maternal Family History: Family History (Last Reviewed 01/11/19 @ 00:11 by Peter Llamas MD) Mother Cancer Father Colon cancer Heart disease Sister Colon cancer History Items: No pertinent history Paternal Family History: Family History (Last Reviewed 01/11/19 @ 00:11 by Peter Llamas MD) Mother Cancer Father Colon cancer Heart disease Sister Colon cancer History Items: No pertinent history Review of Systems Constitutional: Denies: Chills, Fever, Weight Change HEENT: Denies: Head Aches, Sinus Congestion, Sinus Drainage Cardiovascular: Denies: Chest Pain, Palpitations Respiratory: Denies: Cough, Shortness of breath at rest, Sputum production Gastrointestinal: Reports: Nausea, Vomiting. Denies: Abdominal Pain Genitourinary: Denies: Dysuria Musculoskeletal: Denies: Joint Pain, Joint Tenderness Skin: Denies: Rash, Wounds Neurological: Denies: Numbness, Tingling, Focal weakness Psychiatric: Denies: Anxiety, Depression, Homicidal Ideations, Suicidal Ideations Hematologic/ Lymphatic: Denies: Easy Bruising, Easy Bleeding VTE Information - Inpt Only VTE Present on Admission: No VTE Mechan Device Prophylaxis: None VTE Pharm Prophylaxis ordered?: Yes - Physical Exam General: Alert, Oriented x3, Cooperative HEENT: Atraumatic, PERRLA, EOMI, Normocephalic Neck: Supple, No JVD, Negative Carotid Bruits Lungs: Clear to auscultation, Normal air movement Cardiovascular: Regular rate, No murmurs Abdomen: Bowel Sounds Present, Soft, Non Tender Extremities: No edema, Capillary Refill Less than 3 Seconds Skin: No rashes, No breakdown Musculoskeletal: No Tenderness to Palpation of Joints or Extremities Neurological: Neuro grossly intact Psych/Mental Status: Normal Affect, Appropriate Vital Signs Temp Pulse Resp BP Pulse Ox 98.4 F 108 H 14 122/85 H 100 01/10/19 15:21 01/10/19 21:05 01/10/19 21:05 01/10/19 21:05 01/10/19 21:05 Oxygen Delivery Method Room Air Weight: 77.111 kg Body Mass Index (BMI) 25.1 Laboratory Tests Past 24 Hrs 01/10/19 01/10/19 01/10/19 16:34 16:34 16:34 WBC 10.9 RBC 4.94 Hgb 15.7 H Hct 44.9 MCV 90.9 MCH 31.8 MCHC 35.0 RDW 12.2 RDW Differential 39.8 Plt Count 322 MPV 9.4 Immature Gran % (Auto) 0.400 Neut % (Auto) 70.5 H Lymph % (Auto) 21.9 [place] % (Auto) 6.6 Eos % (Auto) 0.3 Baso % (Auto) 0.3 Absolute Neuts (auto) 7.7 Absolute Lymphs (auto) 2.38 Total Counted Not Reportable Sodium 131 L Potassium 4.8 Chloride 95 L Carbon Dioxide 27.0 Anion Gap 9 BUN 32 H Creatinine 1.44 H Estim Creat Clear Calc 40.16 Est GFR (MDRD) Af Amer 47 L Est GFR (MDRD) Non-Af 39 L BUN/Creatinine Ratio 22.2 H Glucose 188 H Lactic Acid 1.8 Calcium 9.2 Total Bilirubin 0.90 AST 47 H ALT 28 Alkaline Phosphatase 95 Troponin I < 0.015 Total Protein 8.0 Albumin 4.0 Globulin 4.0 Albumin/Globulin Ratio 1.0 Lipase 125 Urine Color Urine Clarity Urine pH Ur Specific [place] Urine Protein Urine Glucose (UA) Urine Ketones Urine Occult Blood Urine Nitrite Urine Bilirubin Urine Urobilinogen Ur Leukocyte Esterase Urine RBC Urine WBC Ur Squamous Epith Cells Urine Bacteria Urine Mucus 01/10/19 19:24 WBC RBC Hgb Hct MCV MCH MCHC RDW RDW Differential Plt Count MPV Immature Gran % (Auto) Neut % (Auto) Lymph % (Auto) [place] % (Auto) Eos % (Auto) Baso % (Auto) Absolute Neuts (auto) Absolute Lymphs (auto) Total Counted Sodium Potassium Chloride Carbon Dioxide Anion Gap BUN Creatinine Estim Creat Clear Calc Est GFR (MDRD) Af Amer Est GFR (MDRD) Non-Af BUN/Creatinine Ratio Glucose Lactic Acid Calcium Total Bilirubin AST ALT Alkaline Phosphatase Troponin I Total Protein Albumin Globulin Albumin/Globulin Ratio Lipase Urine Color Yellow Urine Clarity Clear Urine pH 7.0 Ur Specific [place] 1.010 Urine Protein 15 H Urine Glucose (UA) 50 H Urine Ketones 5 H Urine Occult Blood Negative Urine Nitrite Negative Urine Bilirubin Negative Urine Urobilinogen Normal Ur Leukocyte Esterase 25 H Urine RBC 0 SEEN Urine WBC 0-5 SEEN Ur Squamous Epith Cells 0-5 SEEN Urine Bacteria 0 SEEN Urine Mucus 0 SEEN Assessment/Plan All Active Problems (Last Reviewed 01/11/19 @ 00:03 by Peter Llamas MD) Gastro-esophageal reflux disease without esophagitis (Acute) Epigastric pain (Acute) Personal history of colonic polyps (Acute) S/P laminectomy with spinal fusion (Acute) S/p nephrectomy (Acute) History of bladder surgery (Acute) S/P hysterectomy (Acute) History of esophagogastroduodenoscopy (EGD) (Acute) S/P colonoscopy (Acute) Tubular adenoma (Acute) Peripheral vascular disease (Acute) Peripheral neuropathy (Acute) Esophageal reflux (Acute) Diverticulosis of colon (without mention of hemorrhage) (Acute) Diaphragmatic hernia without mention of obstruction or gangrene (Acute) Benign neoplasm of colon (Acute) Intractable nausea and vomiting (Acute) Acute on chronic renal failure (Acute) The patient is a 68 year old F with a significant history of diabetes mellitus; COPD; hypertension; right kidney cancer status post partial nephrectomy; A flutter; GERD and cyclic vomiting syndrome who presented with 2-week history of persistent vomiting. Intractable nausea and vomiting. Likely secondary to cyclic vomiting syndrome. Etiology unclear. Supportive treatment with normal saline; IV Zofran and IV Phenergan ordered. Patient was at the ED 2 days ago and was treated and discharged. However her symptoms remain persistent on home Zofran and Phenergan for which reason she r eturned back to the emergency department. At the emergency department patient was given morphine sulfate; Phenergan and normal saline IVF bolus. We will continue patient on maintenance normal saline IV hydration; and supportive treatment with IV Phenergan and Zofran. Hypertension On admission her blood pressure was fairly stable Metoprolol; losartan and amlodipine continued Trend blood pressure and adjust blood pressure medication Lasix held in the setting of maintenance normal saline hydration for nausea and vomiting. Review of old records show that echocardiogram on 06/08/2015 showed an ejection fraction of 60% but diastolic dysfunction, could not be assessed. Diabetes mellitus On presentation blood glucose was not within goal. Insulin Human 75-25 continued. Accu-Chek q. before meals at bedtime and low medium correction scale ordered. Overactive bladder Oxybutynin continued Depression Lexapro and mirtazapine continued GERD Ranitidine continued Mylanta x1 ordered restless leg syndrome Requip continued DVT prophylaxis subcutaneous Lovenox. Code Visit OBSV E&M: [id number] Initial observation care L3
[2019-01-10 23:37] VITALS: PULSE 89; RESP 16; O2SAT 98
[2019-01-10 23:43] VITALS: BP 131/71
[2019-01-10 23:55] VITALS: BMI 25.1
[2019-01-11] VITALS (8 sets, daily range): BP systolic 137–162; BP diastolic 63–91; PULSE 94–102; RESP 16–18; TEMP 36.6–36.8; O2SAT 95–100
[2019-01-11] MEDS: 0.9% NaCl Peripheral Flush Adult/Peds IV ×7 (00:29→19:22)
[2019-01-11] MEDS: 0.9% Normal Saline 1,000 ML 100 ML IV ×2 (00:30→09:52)
[2019-01-11] MEDS: Mag Hydrox/Al Hydrox/Simeth 30 ML UDC PO (00:32)
[2019-01-11 00:41] LABS: Bedside Glucose 127 mg/dL (70-110)
[2019-01-11] MEDS: Ondansetron 4 MG/2 ML Vial IV ×2 (02:29→08:47)
[2019-01-11] MEDS: proMETHazine 25 MG/ML Syringe 12.5 MG IV ×2 (03:55→11:05)
[2019-01-11] MEDS: oxyCODONE 5 MG Tablet 7.5 MG PO (04:49)
[2019-01-11] MEDS: Pramipexole Di-HCl 0.5 MG Tablet 0.75 MG PO ×3 (06:19→21:07)
[2019-01-11] MEDS: Insulin Lispro 100 UNIT/ML INSULN.PEN SQ ×3 (06:27→16:34)
[2019-01-11 06:38] LABS: Anion Gap 14 (5-15); BUN 25 mg/dL (7-18); BUN/Creat Ratio 23.1 RATIO (10-20); Calcium,Total 8.5 mg/dL (8.5-10.1); Chloride 99 mmol/L (98-107); Creatinine, Serum 1.08 mg/dL (0.55-1.02); EST Glomerular Filtration Rate 54 mL/min (>60); Est Glom Filt Rate - Afr Amer 65 mL/min (>60); Estimated Creatinine Clearance 53.55 ml/min; Glucose 188 mg/dL (74-106); Potassium 3.1 mmol/L (3.5-5.1); Sodium Level 137 mmol/L (136-145)
[2019-01-11 06:46] LABS: Bedside Glucose 194 mg/dL (70-110)
[2019-01-11] MEDS: Insulin Human 75/25 Kwickpen 22 UNIT SC ×2 (09:51→21:08)
--- NOTE | 2019-01-11 10:52 | NURSING ---
VIT D ORDER DC'D - PT STATES NO LONGER TAKING
[2019-01-11] MEDS: Enoxaparin 40 MG/0.4 ML Syringe SC (10:57)
[2019-01-11 11:06] LABS: Bedside Glucose 214 mg/dL (70-110)
[2019-01-11] MEDS: Morphine 2 MG/ML Syringe 1 MG IV ×3 (11:55→19:22)
--- NOTE | 2019-01-11 12:55 | PCM.PROGNOTE ---
<Theresa Breaux - Last Filed: 01/11/19 13:07> Subjective: Patient seen and examined. Complains of abdominal pain. Complains of continued nausea, vomiting. - Physical Exam General: Alert, Oriented x3, Cooperative HEENT: Atraumatic, PERRLA, EOMI, Normocephalic Neck: Supple, No JVD, Negative Carotid Bruits Lungs: Clear to auscultation, Normal air movement Cardiovascular: Regular rate, Regular Rhythm, Normal S1, Normal S2, No murmurs Abdomen: Bowel Sounds Present, Soft, Tender Extremities: No clubbing, No cyanosis, No edema, Capillary Refill Less than 3 Seconds Skin: No rashes, No breakdown Musculoskeletal: No Tenderness to Palpation of Joints or Extremities Neurological: Cranial nerves II-XII grossly intact, Neuro grossly intact Psych/Mental Status: Normal Affect, Appropriate Vital Signs Temp Pulse Resp BP Pulse Ox 98.3 F 94 18 142/91 H 100 01/11/19 07:23 01/11/19 10:08 01/11/19 07:23 01/11/19 10:08 01/11/19 07:23 Oxygen Delivery Method Room Air Weight: 170 lb Body Mass Index (BMI) 25.1 Intake and Output for Last 24 Hours 01/09/19 01/10/19 01/11/19 23:59 23:59 23:59 Intake Total 2044 Output Total 100 / 100 Balance 1944 / 1944 Laboratory Tests Past 24 Hrs 01/10/19 01/10/19 01/10/19 16:34 16:34 16:34 WBC 10.9 RBC 4.94 Hgb 15.7 H Hct 44.9 MCV 90.9 MCH 31.8 MCHC 35.0 RDW 12.2 RDW Differential 39.8 Plt Count 322 MPV 9.4 Immature Gran % (Auto) 0.400 Neut % (Auto) 70.5 H Lymph % (Auto) 21.9 Whitley % (Auto) 6.6 Eos % (Auto) 0.3 Baso % (Auto) 0.3 Absolute Neuts (auto) 7.7 Absolute Lymphs (auto) 2.38 Total Counted Not Reportable Sodium 131 L Potassium 4.8 Chloride 95 L Carbon Dioxide 27.0 Anion Gap 9 BUN 32 H Creatinine 1.44 H Estim Creat Clear Calc 40.16 Est GFR (MDRD) Af Amer 47 L Est GFR (MDRD) Non-Af 39 L BUN/Creatinine Ratio 22.2 H Glucose 188 H Lactic Acid 1.8 Calcium 9.2 Magnesium Total Bilirubin 0.90 AST 47 H ALT 28 Alkaline Phosphatase 95 Troponin I < 0.015 Total Protein 8.0 Albumin 4.0 Globulin 4.0 Albumin/Globulin Ratio 1.0 Lipase 125 Urine Color Urine Clarity Urine pH Ur Specific [place] Urine Protein Urine Glucose (UA) Urine Ketones Urine Occult Blood Urine Nitrite Urine Bilirubin Urine Urobilinogen Ur Leukocyte Esterase Urine RBC Urine WBC Ur Squamous Epith Cells Urine Bacteria Urine Mucus 01/10/19 01/11/19 01/11/19 19:24 06:12 06:12 WBC RBC Hgb Hct MCV MCH MCHC RDW RDW Differential Plt Count MPV Immature Gran % (Auto) Neut % (Auto) Lymph % (Auto) Whitley % (Auto) Eos % (Auto) Baso % (Auto) Absolute Neuts (auto) Absolute Lymphs (auto) Total Counted Sodium 137 Potassium 3.1 L Chloride 99 Carbon Dioxide 24.0 Anion Gap 14 BUN 25 H Creatinine 1.08 H Estim Creat Clear Calc 53.55 Est GFR (MDRD) Af Amer 65 Est GFR (MDRD) Non-Af 54 L BUN/Creatinine Ratio 23.1 H Glucose 188 H Lactic Acid Calcium 8.5 Magnesium 2.0 Total Bilirubin AST ALT Alkaline Phosphatase Troponin I Total Protein Albumin Globulin Albumin/Globulin Ratio Lipase Urine Color Yellow Urine Clarity Clear Urine pH 7.0 Ur Specific [place] 1.010 Urine Protein 15 H Urine Glucose (UA) 50 H Urine Ketones 5 H Urine Occult Blood Negative Urine Nitrite Negative Urine Bilirubin Negative Urine Urobilinogen Normal Ur Leukocyte Esterase 25 H Urine RBC 0 SEEN Urine WBC 0-5 SEEN Ur Squamous Epith Cells 0-5 SEEN Urine Bacteria 0 SEEN Urine Mucus 0 SEEN POC Glucose 01/11/19 01/11/19 01/11/19 10:59 06:22 00:17 POC Glucose 214 H 194 H 127 H Medical Necessity - Tobacco Use Smoking Status: Former smoker Assessment/Plan 1. Intractable nausea and vomiting due to cyclic vomiting syndrome, recurrent-unclear etiology. Obtain urine tox screen. IV PPI. IV antiemetics. IV fluids. Clear liquid diet. Obtain records from prior scope/gastric emptying studies. Patient reports she has had workup for this in the past which has been found to be unremarkable. Recommend outpatient referral to GI at discharge. 2. Hypokalemia-replace per protocol. Trend BMP. 3. Chronic kidney disease stage III- No JESSENIA. 4. Hypertension-stable, continue home metoprolol, losartan regimen. 5. Type 2 diabetes [id number] ACHS with sliding scale insulin. 6. Overactive bladder-continue oxybutynin regimen. 7. Depression-continue Lexapro, mirtazapine regimen. 8. GERD-continue IV PPI. 9. Restless leg syndrome-continue Requip regimen. 10. Chronic COPD-no acute exacerbation. 11. History of right kidney cancer status post partial nephrectomy 12. History of a flutter-continue metoprolol regimen. 13. CAD status post CABG-continue statin, metoprolol. DVT prophylaxis-Lovenox subcu. This patient was seen by YARELI Yang under the supervision of Dr. Haro. <Isiah Haro E - Last Filed: 01/11/19 13:27> - Physical Exam Vital Signs Temp Pulse Resp BP Pulse Ox 98.3 F 94 18 142/91 H 100 01/11/19 07:23 01/11/19 10:08 01/11/19 07:23 01/11/19 10:08 01/11/19 07:23 Oxygen Delivery Method Room Air Weight: 170 lb Body Mass Index (BMI) 25.1 Intake and Output for Last 24 Hours 01/09/19 01/10/19 01/11/19 23:59 23:59 23:59 Intake Total 2044 Output Total 100 / 100 Balance 1944 Laboratory Tests Past 24 Hrs 01/10/19 01/10/19 01/10/19 16:34 16:34 16:34 WBC 10.9 RBC 4.94 Hgb 15.7 H Hct 44.9 MCV 90.9 MCH 31.8 MCHC 35.0 RDW 12.2 RDW Differential 39.8 Plt Count 322 MPV 9.4 Immature Gran % (Auto) 0.400 Neut % (Auto) 70.5 H Lymph % (Auto) 21.9 Whitley % (Auto) 6.6 Eos % (Auto) 0.3 Baso % (Auto) 0.3 Absolute Neuts (auto) 7.7 Absolute Lymphs (auto) 2.38 Total Counted Not Reportable Sodium 131 L Potassium 4.8 Chloride 95 L Carbon Dioxide 27.0 Anion Gap 9 BUN 32 H Creatinine 1.44 H Estim Creat Clear Calc 40.16 Est GFR (MDRD) Af Amer 47 L Est GFR (MDRD) Non-Af 39 L BUN/Creatinine Ratio 22.2 H Glucose 188 H Lactic Acid 1.8 Calcium 9.2 Magnesium Total Bilirubin 0.90 AST 47 H ALT 28 Alkaline Phosphatase 95 Troponin I < 0.015 Total Protein 8.0 Albumin 4.0 Globulin 4.0 Albumin/Globulin Ratio 1.0 Lipase 125 Urine Color Urine Clarity Urine pH Ur Specific [place] Urine Protein Urine Glucose (UA) Urine Ketones Urine Occult Blood Urine Nitrite Urine Bilirubin Urine Urobilinogen Ur Leukocyte Esterase Urine RBC Urine WBC Ur Squamous Epith Cells Urine Bacteria Urine Mucus Urine Opiates Screen Urine Methadone Screen Ur Barbiturates Screen Ur Phencyclidine Scrn Ur Amphetamines Screen U Methamphetamin-MDMA U Benzodiazepines Scrn Urine Cocaine Screen U Cannabinoids Screen Ur Drug Screen Comment 01/10/19 01/10/19 01/11/19 19:24 19:24 06:12 WBC RBC Hgb Hct MCV MCH MCHC RDW RDW Differential Plt Count MPV Immature Gran % (Auto) Neut % (Auto) Lymph % (Auto) Whitley % (Auto) Eos % (Auto) Baso % (Auto) Absolute Neuts (auto) Absolute Lymphs (auto) Total Counted Sodium 137 Potassium 3.1 L Chloride 99 Carbon Dioxide 24.0 Anion Gap 14 BUN 25 H Creatinine 1.08 H Estim Creat Clear Calc 53.55 Est GFR (MDRD) Af Amer 65 Est GFR (MDRD) Non-Af 54 L BUN/Creatinine Ratio 23.1 H Glucose 188 H Lactic Acid Calcium 8.5 Magnesium Total Bilirubin AST ALT Alkaline Phosphatase Troponin I Total Protein Albumin Globulin Albumin/Globulin Ratio Lipase Urine Color Yellow Urine Clarity Clear Urine pH 7.0 Ur Specific [place] 1.010 Urine Protein 15 H Urine Glucose (UA) 50 H Urine Ketones 5 H Urine Occult Blood Negative Urine Nitrite Negative Urine Bilirubin Negative Urine Urobilinogen Normal Ur Leukocyte Esterase 25 H Urine RBC 0 SEEN Urine WBC 0-5 SEEN Ur Squamous Epith Cells 0-5 SEEN Urine Bacteria 0 SEEN Urine Mucus 0 SEEN Urine Opiates Screen Pending Urine Methadone Screen Pending Ur Barbiturates Screen Pending Ur Phencyclidine Scrn Pending Ur Amphetamines Screen Pending U Methamphetamin-MDMA Pending U Benzodiazepines Scrn Pending Urine Cocaine Screen Pending U Cannabinoids Screen Pending Ur Drug Screen Comment 01/11/19 06:12 WBC RBC Hgb Hct MCV MCH MCHC RDW RDW Differential Plt Count MPV Immature Gran % (Auto) Neut % (Auto) Lymph % (Auto) [place] % (Auto) Eos % (Auto) Baso % (Auto) Absolute Neuts (auto) Absolute Lymphs (auto) Total Counted Sodium Potassium Chloride Carbon Dioxide Anion Gap BUN Creatinine Estim Creat Clear Calc Est GFR (MDRD) Af Amer Est GFR (MDRD) Non-Af BUN/Creatinine Ratio Glucose Lactic Acid Calcium Magnesium 2.0 Total Bilirubin AST ALT Alkaline Phosphatase Troponin I Total Protein Albumin Globulin Albumin/Globulin Ratio Lipase Urine Color Urine Clarity Urine pH Ur Specific [place] Urine Protein Urine Glucose (UA) Urine Ketones Urine Occult Blood Urine Nitrite Urine Bilirubin Urine Urobilinogen Ur Leukocyte Esterase Urine RBC Urine WBC Ur Squamous Epith Cells Urine Bacteria Urine Mucus Urine Opiates Screen Urine Methadone Screen Ur Barbiturates Screen Ur Phencyclidine Scrn Ur Amphetamines Screen U Methamphetamin-MDMA U Benzodiazepines Scrn Urine Cocaine Screen U Cannabinoids Screen Ur Drug Screen Comment POC Glucose 01/11/19 01/11/19 01/11/19 10:59 06:22 00:17 POC Glucose 214 H 194 H 127 H Assessment/Plan Hospitalist note: I am seeing this patient in conjunction with Theresa Breaux. I independently seen and examined the patient. Progress note above and laboratory data reviewed and I concur with the above treatment plan. Patient seen and examined. She is still symptomatic, complaining of nausea and vomiting. Also, she complained of abdominal pain. This patient frequently admitted for intractable nausea and vomiting which is attributed to probable cyclic vomiting. There was a concern that she may have gastroparesis because of her long-standing diabetes. Patient states that she had gastric emptying studies last year at [facility] and she was informed that that study was normal. Blood pressure slightly elevated, other vital signs are stable. - Physical Exam General: Alert, Oriented x3, Cooperative, No apparent distress. HEENT: Atraumatic, PERRLA, EOMI. Neck: Supple, No JVD, Negative Carotid Bruits, Trachea Midline, Thyroid Normal. Lungs: Diminished breath sounds bilateral, otherwise clear no rhonchi, No wheeze, No rales. Cardiovascular: Regular rate, Regular Rhythm, Normal S1, Normal S2, PMI Normal. Abdomen: Bowel Sounds Present, Soft, minimal tenderness, no guarding or rigidity, Non-Distended, No Hepato-splenomegaly. Extremities: No clubbing, No cyanosis, No edema Skin: No rashes, No breakdown Neurological: Neuro grossly intact Vital Signs are stable. Assessment and plan: #1 intractable nausea and vomiting: Probably due to cyclic vomiting syndrome. Patient with frequent admissions for the same complaints. She mentioned that she had gastric emptying study at outside facility last year and was normal. She is on IV fluids, IV antiemetics and clear liquid diet. She had upper endoscopy and colonoscopy performed on January, and the upper EGD revealed only some gastritis, colonoscopy was normal. She had small intestine biopsy that revealed tubular adenoma. Plan: Continue IV antiemetics, and IV Compazine, start IV Protonix, replace potassium, will obtain the gastric emptying study report from [facility]. #2 hypokalemia: Secondary to intractable nausea and vomiting, plan to replace potassium with IV potassium chloride added to IV fluids, repeat BMP tomorrow morning, check serum magnesium. #3 other chronic medical problems: Stable, continue current medications as above. This note was generated with [employer] dictation software. It may contain incorrect words, spelling, and punctuation that were not noted in checking the note before signing. Code Visit OBSV E&M: 83299 Observation care discharge
[2019-01-11 13:30] LABS: Amphetamine Urine VISTA NEGATIVE (<1000 ng/mL); Barbiturate Urine VISTA NEGATIVE (< 200 ng/mL); Benzodiazepine Urine VISTA NEGATIVE (< 200 ng/mL); Cocaine Urine VISTA NEGATIVE (< 300 ng/mL); Ecstacy Urine VISTA NEGATIVE (< 500 ng/mL); Methadone Urine VISTA NEGATIVE (< 300 ng/mL); PCP Urine VISTA NEGATIVE (< 25 ng/mL); THC Urine VISTA NEGATIVE (< 50 ng/mL); Vista UDS pH Range 6
[2019-01-11] MEDS: Potassium Chloride 10mEq/100mL 10 MEQ/100 ML IV.SOLN. 100 MEQ IV BOLUS ×4 (14:26→19:25)
[2019-01-11] MEDS: proCHLORPERazine 10 MG/2 ML Vial 5 MG IV ×2 (14:32→21:10)
[2019-01-11 16:37] LABS: Bedside Glucose 194 mg/dL (70-110)
[2019-01-11] MEDS: Atorvastatin Calcium 80 MG Tablet PO (21:09)
[2019-01-11] MEDS: Magnesium Oxide 400 MG Tablet PO (21:09)
[2019-01-11] MEDS: Mirtazapine 15 MG Tablet PO (21:10)
[2019-01-11 21:27] LABS: Bedside Glucose 134 mg/dL (70-110)
[2019-01-12] MEDS: Morphine 2 MG/ML Syringe 1 MG IV (01:23)
[2019-01-12] MEDS: 0.9% NaCl Peripheral Flush Adult/Peds IV ×3 (01:23→11:58)
[2019-01-12 01:30] VITALS: BP 114/51; PULSE 101; RESP 18; TEMP 36.6; O2SAT 97
[2019-01-12] MEDS: Pramipexole Di-HCl 0.5 MG Tablet 0.75 MG PO (05:13)
[2019-01-12 06:47] LABS: BUN 15 mg/dL (7-18); Creatinine, Serum 1.01 mg/dL (0.55-1.02); Glucose 95 mg/dL (74-106)
[2019-01-12 06:48] LABS: Anion Gap 9 (5-15); BUN/Creat Ratio 14.9 RATIO (10-20); Chloride 106 mmol/L (98-107); EST Glomerular Filtration Rate 58 mL/min (>60); Est Glom Filt Rate - Afr Amer 70 mL/min (>60); Estimated Creatinine Clearance 57.26 ml/min; Potassium 3.7 mmol/L (3.5-5.1); Sodium Level 140 mmol/L (136-145)
[2019-01-12 07:00] VITALS: BP 131/71; PULSE 84; RESP 12; TEMP 36.6; O2SAT 100
[2019-01-12 07:36] VITALS: O2SAT 94
[2019-01-12] MEDS: oxyCODONE 5 MG Tablet 7.5 MG PO (07:39)
[2019-01-12] MEDS: Tolterodine Tartrate 2 MG CAP.SA PO (07:43)
[2019-01-12] MEDS: Escitalopram Oxalate 10 MG Tablet PO (07:43)
[2019-01-12] MEDS: Losartan Potassium 100 MG Tablet PO (07:43)
[2019-01-12] MEDS: Magnesium Oxide 400 MG Tablet PO (07:43)
[2019-01-12 07:44] VITALS: PULSE 81
[2019-01-12] MEDS: Metoprolol(XL)Succ 50 MG Tablet PO (07:44)
[2019-01-12] MEDS: Enoxaparin 40 MG/0.4 ML Syringe SC (07:45)
[2019-01-12 08:02] LABS: Bedside Glucose 72 mg/dL (70-110)
[2019-01-12] MEDS: proCHLORPERazine 10 MG/2 ML Vial 5 MG IV (08:24)
--- NOTE | 2019-01-12 11:02 | DCINST_ITS ---
You will use the following diet at home:: Calorie/Carbohydrate Controlled (specify 1200, 1400, etc) - 1800 fabiola / day Your food should be the consistency of: Regular Your liquids should be the consistency of: Regular/Thin Discharge Activity: Return to Normal Activity Allergies/Adverse Reactions: Allergies diphenhydramine HCl [From Benadryl] Adverse Reaction (Verified 01/10/19 15:21) Other metoclopramide [From Reglan] Adverse Reaction (Verified 01/10/19 15:21) Other Medications to take at Discharge Atorvastatin Calcium [Lipitor] 80 mg PO DAILY 07/31/17 Insulin NPH Hum/Reg Insulin Hm [Humulin 70-30 Vial] 22 unit SQ BID 07/31/17 Losartan Potassium [Cozaar] 100 mg PO DAILY 07/31/17 Metoprolol(XL)Succ [Toprol Xl (Beta Zakia)] 50 mg PO DAILY 07/31/17 Ropinirole HCl [Requip Xl] 4 mg PO BID 07/31/17 Escitalopram Oxalate [Lexapro] 10 mg PO DAILY 07/30/18 Ranitidine [Zantac] 300 mg PO DAILY 07/30/18 Docusate Sodium [Stool Softener] 100 mg PO BID 01/10/19 Furosemide [Lasix] 20 mg PO DAILY 01/10/19 Magnesium Oxide [Magnesium] 400 mg PO BID 01/10/19 Mirtazapine [Remeron] 15 mg PO QHS 01/10/19 Oxybutynin [Ditropan] 10 mg PO DAILY 01/10/19 Oxycodone HCl/Acetaminophen [Oxycodon-Acetaminophen 7.5-325] 7.5 - 325 mg PO BID PRN 01/11/19 Primary Care Physician: Tae Banegas DO [Primary Care Provider] - Please follow up with your Primary Care Physician in: 1-2 weeks Test Results: Test results from this visit will be discussed in further detail at your follow- up appointment, if applicable. Please Follow Up With: Gastroenterology - Your own, re-establish care. When: 2 weeks Proposed Discharge Date: 01/12/19
[2019-01-12] MEDS: Insulin Human 75/25 Kwickpen 22 UNIT SC (11:41)
[2019-01-12] MEDS: Insulin Lispro 100 UNIT/ML INSULN.PEN SQ (11:45)
[2019-01-12 12:15] LABS: Bedside Glucose 224 mg/dL (70-110)
--- NOTE | 2019-01-12 12:26 | CASEMGMT ---
JULIA CM Note: attempted to complete RYAN form with pt but pt has dc'floyd. Rosenda YODERN RN ACM
--- NOTE | 2019-01-12 14:06 | PCM.DC.SUM ---
<Steve Tyler - Last Filed: 01/12/19 14:06> Discharge Date and Diagnosis Date of Admission: 01/10/19 Date of Discharge: 01/12/19 - Primary Discharge Diagnosis Intractable nausea and vomiting 2/2 cyclic vomiting syndrome HTN T2DM COPD hx Right renal CA s/p partial nephrectomy GERD Aflutter - Secondary Discharge Diagnosis Chronic Problems (Last Updated 01/11/19 @ 13:20 by Isiah aHro MD) S/P laminectomy with spinal fusion (Chronic) 1991 Gastro-esophageal reflux disease without esophagitis (Chronic) S/P hysterectomy (Chronic) 1995 Peripheral vascular disease (Chronic) Peripheral neuropathy (Chronic) Chronic kidney disease, stage 3 (Chronic) Status post coronary artery bypass graft (Chronic) Hypertension (Chronic) Type II diabetes mellitus (Chronic) Coronary artery disease (Chronic) cabg 1992 Atrial flutter (Chronic) History of partial nephrectomy (Chronic) for malignant tumor 2014 [facility] Mild chronic obstructive pulmonary disease (Chronic) Hospital Course and Treatment Operations: None Procedures: None Summary of Care Provided: Hospital Course: The patient is a 68 year old F with PMHx of cyclic vomiting syndrome, other problems as noted above, who presented to the ER with intractable nausea and vomiting. She appeared dehydrated with somewhat elevated BUN & Cr and had hyponatremia and mild tachycardia. She had taken Zofran and Compazine at home with no relief. Symptoms were persistent for a week. She was admitted to the gen med floor with supportive care for exacerbation of cyclic vomiting syndrome. Tox screen showed only opiates which she takes as an outpatient. She had some mild diffuse abdominal pain as well. We obtained prior records from [facility]. 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 She was treated with IV fluids, antiemetics, supportive care. Her symptoms improved. She was given additional compazine to go home with as she stated this works better for her. She used to follow with a GI specialist in [place], however she has not seen him in about 2 years. We advised that she follow up with him in 2 weeks, and to follow up with her PCP in 1-2 weeks. She was discharged home in stable condition. This patient was seen by Steve Tyler PA-C under the supervision of Dr. Haro. [] - Physical Exam General: Alert, Oriented x3, Cooperative HEENT: Atraumatic, PERRLA, EOMI, Normocephalic Neck: Supple, No JVD, Negative Carotid Bruits Lungs: Clear to auscultation, Normal air movement Cardiovascular: Regular rate, No murmurs Abdomen: Bowel Sounds Present, Soft, Non Tender Extremities: No edema, Capillary Refill Less than 3 Seconds Skin: No rashes, No breakdown Musculoskeletal: No Tenderness to Palpation of Joints or Extremities Neurological: Cranial nerves II-XII grossly intact Psych/Mental Status: Normal Affect, Appropriate, Alert and oriented to time, place, person, mood and affect Vital Signs Temp Pulse Resp BP Pulse Ox 97.9 F 81 12 131/71 H 94 01/12/19 07:00 01/12/19 07:44 01/12/19 07:00 01/12/19 07:00 01/12/19 07:36 Oxygen Delivery Method Room Air Weight: 170 lb 0.01 oz Body Mass Index (BMI) 25.1 Intake and Output for Last 24 Hours 01/10/19 01/11/19 01/12/19 23:59 23:59 23:59 Intake Total 3276 / 3276 1506 / 1506 Output Total 750 / 750 300 / 300 Balance 2526 / 2526 1206 / 1206 Laboratory Tests Past 24 Hrs 01/12/19 06:16 Sodium 140 Potassium 3.7 Chloride 106 Carbon Dioxide 25.0 Anion Gap 9 BUN 15 Creatinine 1.01 Estim Creat Clear Calc 57.26 Est GFR (MDRD) Af Amer 70 Est GFR (MDRD) Non-Af 58 L BUN/Creatinine Ratio 14.9 Glucose 95 Calcium 8.0 L POC Glucose 01/12/19 01/12/19 01/11/19 11:40 07:37 21:05 POC Glucose 224 H 72 134 H 01/11/19 16:27 POC Glucose 194 H Discharge Diet: Low fat/ Low Cholesterol, 1800 Calorie Control Diet, 2000 mg Sodium Diet Discharge Activity: Return to Normal Activity Home Medications: Medications to take at Discharge Atorvastatin Calcium [Lipitor] 80 mg PO DAILY 07/31/17 Insulin NPH Hum/Reg Insulin Hm [Humulin 70-30 Vial] 22 unit SQ BID 07/31/17 Losartan Potassium [Cozaar] 100 mg PO DAILY 07/31/17 Metoprolol(XL)Succ [Toprol Xl (Beta Zakia)] 50 mg PO DAILY 07/31/17 Ropinirole HCl [Requip Xl] 4 mg PO BID 07/31/17 Escitalopram Oxalate [Lexapro] 10 mg PO DAILY 07/30/18 Ranitidine [Zantac] 300 mg PO DAILY 07/30/18 Docusate Sodium [Stool Softener] 100 mg PO BID 01/10/19 Furosemide [Lasix] 20 mg PO DAILY 01/10/19 Magnesium Oxide [Magnesium] 400 mg PO BID 01/10/19 Mirtazapine [Remeron] 15 mg PO QHS 01/10/19 Oxybutynin [Ditropan] 10 mg PO DAILY 01/10/19 Oxycodone HCl/Acetaminophen [Oxycodon-Acetaminophen 7.5-325] 7.5 - 325 mg PO BID PRN 01/11/19 proCHLORPERazine tablet [Compazine tablet] 5 mg PO TID PRN PRN #21 tablet 01/12/19 Following Prescrptions Were Given to Patient: proCHLORPERazine tablet [Compazine tablet] 5 mg PO TID PRN PRN #21 tablet PRN Reason: Nausea Primary Care Physician: Tae Banegas DO [Primary Care Provider] - Please follow up with your Primary Care Physician in: 1-2 weeks Please Follow Up With: Gastroenterology - Your own, re-establish care. When: 2 weeks Disposition: Home Minutes spent on discharge:: 35 Patient Condition:: Stable Medical Necessity - Tobacco Use Smoking Status: Former smoker Meaningful Use Info Meaningful Use Diagnoses (Choose all that apply): None applicable <Isiah Haro - Last Filed: 01/13/19 12:44> Discharge Date and Diagnosis - Secondary Discharge Diagnosis Chronic Problems (Last Updated 01/11/19 @ 13:20 by Isiah Haro MD) S/P laminectomy with spinal fusion (Chronic) 1991 Gastro-esophageal reflux disease without esophagitis (Chronic) S/P hysterectomy (Chronic) 1995 Peripheral vascular disease (Chronic) Peripheral neuropathy (Chronic) Chronic kidney disease, stage 3 (Chronic) Status post coronary artery bypass graft (Chronic) Hypertension (Chronic) Type II diabetes mellitus (Chronic) Coronary artery disease (Chronic) cabg 1992 Atrial flutter (Chronic) History of partial nephrectomy (Chronic) for malignant tumor 2014 [facility] Mild chronic obstructive pulmonary disease (Chronic) Hospital Course and Treatment Summary of Care Provided: Hospitalist note: Discharge summary above reviewed and I concur with the above discharge and treatment plan. Patient admitted because of intractable nausea and vomiting in context of history of frequent admissions for the same complaint with probable diagnosis of cyclic vomiting syndrome. This patient had extensive GI workup in the past for recurrent intractable nausea and vomiting. She had upper EGD and colonoscopy last year that showed only some gastritis, otherwise was unremarkable. She had gastric emptying study that was done at outside facility in [place] and we got that report and it was normal. Patient was treated with IV fluids, IV antiemetics and IV PPI. She was dehydrated, had hypokalemia. With IV fluids and electrolyte replacement, kidney function improved and her potassium replaced and corrected. Her LFT and lipase were normal. Lactic acid was normal. Serum magnesium was normal. With treatment, symptoms improved and she tolerated regular diet. Patient discharged home in a stable medical condition, discharged on Compazine as needed for nausea and vomiting, continued on Zantac, recommended follow-up with her GI at [facility], recommended follow-up with PCP in 1-2 weeks. - Physical Exam General: Alert, Oriented x3, Cooperative, No apparent distress. HEENT: Atraumatic, PERRLA, EOMI. Neck: Supple, No JVD, Negative Carotid Bruits, Trachea Midline, Thyroid Normal. Lungs: Clear to auscultation, Normal air movement, No rhonchi, No wheeze, No rales. Cardiovascular: Regular rate, Regular Rhythm, Normal S1, Normal S2, PMI Normal. Abdomen: Bowel Sounds Present, Soft, Non Tender, Non-Distended, No Hepato-splenomegaly. Extremities: No clubbing, No cyanosis, No edema Skin: No rashes, No breakdown Neurological: Neuro grossly intact Vital Signs are stable. This note was generated with [employer] dictation software. It may contain incorrect words, spelling, and punctuation that were not noted in checking the note before signing. - Physical Exam Vital Signs Temp Pulse Resp BP Pulse Ox 97.9 F 81 12 131/71 H 94 01/12/19 07:00 01/12/19 07:44 01/12/19 07:00 01/12/19 07:00 01/12/19 07:36 Oxygen Delivery Method Room Air Weight: 170 lb 0.01 oz Body Mass Index (BMI) 25.1 Intake and Output for Last 24 Hours 01/10/19 01/11/19 01/12/19 23:59 23:59 23:59 Intake Total 3276 / 3276 1506 / 1506 Output Total 750 / 750 300 / 300 Balance 2526 / 2526 1206 / 1206 Laboratory Tests Past 24 Hrs 01/12/19 06:16 Sodium 140 Potassium 3.7 Chloride 106 Carbon Dioxide 25.0 Anion Gap 9 BUN 15 Creatinine 1.01 Estim Creat Clear Calc 57.26 Est GFR (MDRD) Af Amer 70 Est GFR (MDRD) Non-Af 58 L BUN/Creatinine Ratio 14.9 Glucose 95 Calcium 8.0 L POC Glucose 01/12/19 01/12/19 01/11/19 11:40 07:37 21:05 POC Glucose 224 H 72 134 H 01/11/19 16:27 POC Glucose 194 H Disposition: Home Minutes spent on discharge:: 26 Meaningful Use Info Meaningful Use Diagnoses (Choose all that apply): None applicable Code Visit OBSV E&M: 52386 Observation care discharge
--- NOTE | 2019-01-12 14:13 | DS.PCM_ITS ---
<Steve Tyler - Last Filed: 01/12/19 14:06> Discharge Date and Diagnosis Date of Admission: 01/10/19 Date of Discharge: 01/12/19 - Primary Discharge Diagnosis Intractable nausea and vomiting 2/2 cyclic vomiting syndrome HTN T2DM COPD hx Right renal CA s/p partial nephrectomy GERD Aflutter - Secondary Discharge Diagnosis Chronic Problems (Last Updated 01/11/19 @ 13:20 by Isiah Haro MD) S/P laminectomy with spinal fusion (Chronic) 1991 Gastro-esophageal reflux disease without esophagitis (Chronic) S/P hysterectomy (Chronic) 1995 Peripheral vascular disease (Chronic) Peripheral neuropathy (Chronic) Chronic kidney disease, stage 3 (Chronic) Status post coronary artery bypass graft (Chronic) Hypertension (Chronic) Type II diabetes mellitus (Chronic) Coronary artery disease (Chronic) cabg 1992 Atrial flutter (Chronic) History of partial nephrectomy (Chronic) for malignant tumor 2014 [facility] Mild chronic obstructive pulmonary disease (Chronic) Hospital Course and Treatment Operations: None Procedures: None Summary of Care Provided: Hospital Course: The patient is a 68 year old F with PMHx of cyclic vomiting syndrome, other problems as noted above, who presented to the ER with intractable nausea and vomiting. She appeared dehydrated with somewhat elevated BUN & Cr and had hyponatremia and mild tachycardia. She had taken Zofran and Compazine at home with no relief. Symptoms were persistent for a week. She was admitted to the gen med floor with supportive care for exacerbation of cyclic vomiting syndrome. Tox screen showed only opiates which she takes as an outpatient. She had some mild diffuse abdominal pain as well. We obtained prior records from [facility]. 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 She was treated with IV fluids, antiemetics, supportive care. Her symptoms improved. She was given additional compazine to go home with as she stated this works better for her. She used to follow with a GI specialist in [place], however she has not seen him in about 2 years. We advised that she follow up with him in 2 weeks, and to follow up with her PCP in 1-2 weeks. She was discharged home in stable condition. This patient was seen by Steve Tyler PA-C under the supervision of Dr. Haro. [] - Physical Exam General: Alert, Oriented x3, Cooperative HEENT: Atraumatic, PERRLA, EOMI, Normocephalic Neck: Supple, No JVD, Negative Carotid Bruits Lungs: Clear to auscultation, Normal air movement Cardiovascular: Regular rate, No murmurs Abdomen: Bowel Sounds Present, Soft, Non Tender Extremities: No edema, Capillary Refill Less than 3 Seconds Skin: No rashes, No breakdown Musculoskeletal: No Tenderness to Palpation of Joints or Extremities Neurological: Cranial nerves II-XII grossly intact Psych/Mental Status: Normal Affect, Appropriate, Alert and oriented to time, place, person, mood and affect Vital Signs Temp Pulse Resp BP Pulse Ox 97.9 F 81 12 131/71 H 94 01/12/19 07:00 01/12/19 07:44 01/12/19 07:00 01/12/19 07:00 01/12/19 07:36 Oxygen Delivery Method Room Air Weight: 170 lb 0.01 oz Body Mass Index (BMI) 25.1 Intake and Output for Last 24 Hours 01/10/19 01/11/19 01/12/19 23:59 23:59 23:59 Intake Total 3276 / 3276 1506 / 1506 Output Total 750 / 750 300 / 300 Balance 2526 / 2526 1206 / 1206 Laboratory Tests Past 24 Hrs 01/12/19 06:16 Sodium 140 Potassium 3.7 Chloride 106 Carbon Dioxide 25.0 Anion Gap 9 BUN 15 Creatinine 1.01 Estim Creat Clear Calc 57.26 Est GFR (MDRD) Af Amer 70 Est GFR (MDRD) Non-Af 58 L BUN/Creatinine Ratio 14.9 Glucose 95 Calcium 8.0 L POC Glucose 01/12/19 01/12/19 01/11/19 11:40 07:37 21:05 POC Glucose 224 H 72 134 H 01/11/19 16:27 POC Glucose 194 H Discharge Diet: Low fat/ Low Cholesterol, 1800 Calorie Control Diet, 2000 mg Sodium Diet Discharge Activity: Return to Normal Activity Home Medications: Medications to take at Discharge Atorvastatin Calcium [Lipitor] 80 mg PO DAILY 07/31/17 Insulin NPH Hum/Reg Insulin Hm [Humulin 70-30 Vial] 22 unit SQ BID 07/31/17 Losartan Potassium [Cozaar] 100 mg PO DAILY 07/31/17 Metoprolol(XL)Succ [Toprol Xl (Beta Zakia)] 50 mg PO DAILY 07/31/17 Ropinirole HCl [Requip Xl] 4 mg PO BID 07/31/17 Escitalopram Oxalate [Lexapro] 10 mg PO DAILY 07/30/18 Ranitidine [Zantac] 300 mg PO DAILY 07/30/18 Docusate Sodium [Stool Softener] 100 mg PO BID 01/10/19 Furosemide [Lasix] 20 mg PO DAILY 01/10/19 Magnesium Oxide [Magnesium] 400 mg PO BID 01/10/19 Mirtazapine [Remeron] 15 mg PO QHS 01/10/19 Oxybutynin [Ditropan] 10 mg PO DAILY 01/10/19 Oxycodone HCl/Acetaminophen [Oxycodon-Acetaminophen 7.5-325] 7.5 - 325 mg PO BID PRN 01/11/19 proCHLORPERazine tablet [Compazine tablet] 5 mg PO TID PRN PRN #21 tablet 01/12/19 Following Prescrptions Were Given to Patient: proCHLORPERazine tablet [Compazine tablet] 5 mg PO TID PRN PRN #21 tablet PRN Reason: Nausea Primary Care Physician: Tae Banegas DO [Primary Care Provider] - Please follow up with your Primary Care Physician in: 1-2 weeks Please Follow Up With: Gastroenterology - Your own, re-establish care. When: 2 weeks Disposition: Home Minutes spent on discharge:: 35 Patient Condition:: Stable Medical Necessity - Tobacco Use Smoking Status: Former smoker Meaningful Use Info Meaningful Use Diagnoses (Choose all that apply): None applicable <Isiah Haro - Last Filed: 01/13/19 12:44> Discharge Date and Diagnosis - Secondary Discharge Diagnosis Chronic Problems (Last Updated 01/11/19 @ 13:20 by Isiah Haro MD) S/P laminectomy with spinal fusion (Chronic) 1991 Gastro-esophageal reflux disease without esophagitis (Chronic) S/P hysterectomy (Chronic) 1995 Peripheral vascular disease (Chronic) Peripheral neuropathy (Chronic) Chronic kidney disease, stage 3 (Chronic) Status post coronary artery bypass graft (Chronic) Hypertension (Chronic) Type II diabetes mellitus (Chronic) Coronary artery disease (Chronic) cabg 1992 Atrial flutter (Chronic) History of partial nephrectomy (Chronic) for malignant tumor 2014 [facility] Mild chronic obstructive pulmonary disease (Chronic) Hospital Course and Treatment Summary of Care Provided: Hospitalist note: Discharge summary above reviewed and I concur with the above discharge and treatment plan. Patient admitted because of intractable nausea and vomiting in context of history of frequent admissions for the same complaint with probable diagnosis of cyclic vomiting syndrome. This patient had extensive GI workup in the past for recurrent intractable nausea and vomiting. She had upper EGD and colonoscopy last year that showed only some gastritis, otherwise was unremarkabl e. She had gastric emptying study that was done at outside facility in [place] and we got that report and it was normal. Patient was treated with IV fluids, IV antiemetics and IV PPI. She was dehydrated, had hypokalemia. With IV fluids and electrolyte replacement, kidney function improved and her potassium replaced and corrected. Her LFT and lipase were normal. Lactic acid was normal. Serum magnesium was normal. With treatment, symptoms improved and she tolerated regular diet. Patient discharged home in a stable medical condition, discharged on Compazine as needed for nausea and vomiting, continued on Zantac, recommended follow-up with her GI at [facility], recommended follow-up with PCP in 1-2 weeks. - Physical Exam General: Alert, Oriented x3, Cooperative, No apparent distress. HEENT: Atraumatic, PERRLA, EOMI. Neck: Supple, No JVD, Negative Carotid Bruits, Trachea Midline, Thyroid Normal. Lungs: Clear to auscultation, Normal air movement, No rhonchi, No wheeze, No ral es. Cardiovascular: Regular rate, Regular Rhythm, Normal S1, Normal S2, PMI Normal. Abdomen: Bowel Sounds Present, Soft, Non Tender, Non-Distended, No Hepato- splenomegaly. Extremities: No clubbing, No cyanosis, No edema Skin: No rashes, No breakdown Neurological: Neuro grossly intact Vital Signs are stable. This note was generated with [employer] dictation software. It may contain incorrect words, spelling, and punctuation that were not noted in checking the note before signing. - Physical Exam Vital Signs Temp Pulse Resp BP Pulse Ox 97.9 F 81 12 131/71 H 94 01/12/19 07:00 01/12/19 07:44 01/12/19 07:00 01/12/19 07:00 01/12/19 07:36 Oxygen Delivery Method Room Air Weight: 170 lb 0.01 oz Body Mass Index (BMI) 25.1 Intake and Output for Last 24 Hours 01/10/19 01/11/19 01/12/19 23:59 23:59 23:59 Intake Total 3276 / 3276 1506 / 1506 Output Total 750 / 750 300 / 300 Balance 2526 / 2526 1206 / 1206 Laboratory Tests Past 24 Hrs 01/12/19 06:16 Sodium 140 Potassium 3.7 Chloride 106 Carbon Dioxide 25.0 Anion Gap 9 BUN 15 Creatinine 1.01 Estim Creat Clear Calc 57.26 Est GFR (MDRD) Af Amer 70 Est GFR (MDRD) Non-Af 58 L BUN/Creatinine Ratio 14.9 Glucose 95 Calcium 8.0 L POC Glucose 01/12/19 01/12/19 01/11/19 11:40 07:37 21:05 POC Glucose 224 H 72 134 H 01/11/19 16:27 POC Glucose 194 H Disposition: Home Minutes spent on discharge:: 26 Meaningful Use Info Meaningful Use Diagnoses (Choose all that apply): None applicable Code Visit OBSV E&M: 32046 Observation care discharge
== END 2019-01-12 12:27 | disposition home or self-care (01) ==
LOC: ED 22:24 → MS2 22:53
PROVIDERS: Nurse Practitioner Family; Admitting Provider Hospitalist; Emergency Provider Emergency Medicine; Family Provider Student in an Organized Health Care Education/Training Program; PCP Student in an Organized Health Care Education/Training Program; Referring Provider Hospitalist; Visit Provider Hospitalist
DX: G43.A1 Cyclical vomiting, in migraine, intractable (principal); K21.9 Gastro-esophageal reflux disease without esophagitis; J44.9 Chronic obstructive pulmonary disease, unspecified; I12.9 Hypertensive chronic kidney disease with stage 1 through stage 4 chronic kidney disease, or unspecified chronic kidney disease; E11.22 Type 2 diabetes mellitus with diabetic chronic kidney disease; E11.42 Type 2 diabetes mellitus with diabetic polyneuropathy; N18.3 Chronic kidney disease, stage 3 (moderate); E11.51 Type 2 diabetes mellitus with diabetic peripheral angiopathy without gangrene; I25.10 Atherosclerotic heart disease of native coronary artery without angina pectoris; N32.81 Overactive bladder; F32.9 Major depressive disorder, single episode, unspecified; G25.81 Restless legs syndrome; E87.6 Hypokalemia; I48.92 Unspecified atrial flutter; E87.1 Hypo-osmolality and hyponatremia; Z85.528 Personal history of other malignant neoplasm of kidney; Z90.5 Acquired absence of kidney; Z95.1 Presence of aortocoronary bypass graft; Z87.891 Personal history of nicotine dependence; Z79.899 Other long term (current) drug therapy; Z79.4 Long term (current) use of insulin
CPT/HCPCS: 36415; 80048; 80053; 80307; 81001; 82962; 83605; 83690; 83735; 84484; 85025; 93005; 96361; 96365; 96366; 96372; 96375; 96376; 97802; 99218; 99285; J7030; J7040; A4216; G0378; J2405; J3490

== ENCOUNTER 2019-01-15 11:05 | Emergency (ER) | payer MEDICARE, SELFPAY ==
[2019-01-10 23:55] VITALS: BMI 25.1
[2019-01-15 11:06] VITALS: BP 130/68; PULSE 65; RESP 16; TEMP 36.4; O2SAT 96; BMI 25.2
--- NOTE | 2019-01-15 11:33 | ED.DCSUM_ITS ---
- ER Visit Summary Date of Service: 01/15/19 Chief Complaint: Nausea and vomiting History of Present Illness: The patient is a 68 F history of cyclic vomiting syndrome. Also history of insulin-dependent diabetes prior partial nephrectomy for renal cancer and CAD with double bypass. Patient states she was recently admitted several days ago for cyclic vomiting. Again is having nausea and vomiting and pain. No diarrhea. No constipation. No fever. This is typical for 1 of her cyclic vomiting episodes. Physical Examination: Older female no acute distress. Vital signs are stable. She is afebrile. She does not look septic or toxic. She does have dry mucous membranes consistent with mild dehydration. HEENT exam unremarkable other than mildly by mucous membranes. Neck nontender. Lungs clear to auscultation bilaterally. Heart regular rate and rhythm no murmur. Abdomen is soft and nontender. Normal bowel sounds no peritoneal signs. Non-distended. No pulsatile mass. No hernias. No signs of obstruction. Patient is moving all 4 extremities. Calves are nontender without edema. There is no motor weakness. Back nontender. Neurologically she is awake and alert with no focal motor deficits. Test Results: CBC unremarkable hemoglobin of 15. White count of 10. Electrolytes unremarkable potassium 3.3. Normal gap. Glucose 248. Creatinine 1.5 she has known renal insufficiency off and creatinine is higher than this. Liver enzymes normal. Lipase normal. Emergency Department Course and Treatment: Older female with nausea and vomiting with cyclic coming. Treated with IV fluids. She requested Compazine for nausea. And Ativan for anxiety. Repeat exam at 12:39 PM patient is doing well. States she feels better. Abdomen is benign. She did drink a small clear: Beverage here and has been holding it down. She is comfortable being discharged home and has nausea medication at home. Treatment Plan: Fluids and rest. Advance diet slowly. Nausea medications as needed. Return if worse or follow-up with PCP as needed. Disposition: Discharge Impression: Acute nausea and vomiting with a history of cyclic vomiting syndrome History of insulin-dependent diabetes History of renal CA with partial nephrectomy Chronic renal insufficiency This note was generated with [employer] software. It may contain incorrect words, spelling, and punctuation that were not noted in review of the chart prior to signing ED Disposition - Plan for ED Patient: Referrals: Tae Banegas DO [Primary Care Provider] -
[2019-01-15] MEDS: 0.9% Normal Saline 1,000 ML 1000 ML IV (11:44)
[2019-01-15] MEDS: proCHLORPERazine 10 MG/2 ML Vial IV (11:45)
[2019-01-15] MEDS: LORazepam 2 MG/ML Syringe 1 MG IV (11:45)
[2019-01-15 11:54] LABS: Absolute Lymphocyte Count 2.67 X10^3/ul (0.83-4.51); Absolute Neutrophil Count 7.1 X10^3/uL (2.0-7.7); Basophil# 0.02 X10^3/uL; Basophil% 0.2 % (0-1); Eosinophil# 0.06 X10^3/uL; Eosinophils% 0.6 % (0-5); Hematocrit 44.7 % (37-47); Hemoglobin 15.6 g/dl (12.0-15.0); Lymphocyte # 2.67 X10^3/ul (4.0); Lymphocyte % 24.8 % (19-41); Mean Corp Hgb Conc 34.9 g/gl (32-36); Mean Corpuscular Hgb 31.6 pg (27.0-32.0); Mean Corpuscular Volume 90.5 fL (81-99); Mean Platelet Vol. 9.7 fl (6.2-12.0); Monocyte# 0.89 X10^3/uL; Monocyte% 8.3 % (0-10); Neutrophil # 7.08 X10^3/uL (2.7-7.7); Neutrophil % 65.8 % (47-70); POSITIVE COUNT NO; POSITIVE DIFFERENTIAL NO; POSITIVE MORPHOLOGY NO; Platelet Count 318 K/mm3 (150-450); RBC Distribution Width CV 12.2 % (11.6-14.6); RBC Distribution Width SD 39.6 fl (35.1-43.9); Red Blood Count 4.94 M/mm3 (4.2-5.4); White Blood Count 10.8 K/mm3 (4.4-11.0)
[2019-01-15 12:08] LABS: AST(SGOT) 17 U/L (15-37); Alanine Aminotransfer ALT/SGPT 25 U/L (13-56); Albumin, Serum 3.9 g/dL (3.2-5.0); Alkaline Phosphatase 85 U/L (45-117); BUN 33 mg/dL (7-18); Bilirubin, Direct 0.25 mg/dL (0.00-0.30); Chloride 98 mmol/L (98-107); EST Glomerular Filtration Rate 37 mL/min (>60); Est Glom Filt Rate - Afr Amer 45 mL/min (>60); Estimated Creatinine Clearance 38.56 ml/min; Globulin 3.4 g/dL (2.2-4.2); Glucose 248 mg/dL (74-106); Lipase 195 U/L (73-393); Potassium 3.3 mmol/L (3.5-5.1); Protein, Total 7.3 g/dL (6.4-8.2); Sodium Level 135 mmol/L (136-145)
[2019-01-15 12:09] LABS: Anion Gap 13 (5-15)
--- NOTE | 2019-01-15 12:41 | ED.DEP ---
ED Disposition - Plan for ED Patient: Disposition: Home or Assisted Living Instructions: ED Nausea Vomiting Referrals: Tae Banegas DO [Primary Care Provider] - 3-5 Days if not improving Additional Instructions: Plenty of fluids and rest. [place] diet and increase slowly as tolerated. Next Usual nausea medication at home as needed.
[2019-01-15 12:50] VITALS: BP 124/78; PULSE 71; RESP 16; O2SAT 96
== END 2019-01-15 12:50 | disposition home or self-care (01) ==
PROVIDERS: Emergency Provider Emergency Medicine; Family Provider Student in an Organized Health Care Education/Training Program; PCP Student in an Organized Health Care Education/Training Program
DX: G43.A0 Cyclical vomiting, in migraine, not intractable (principal); E11.22 Type 2 diabetes mellitus with diabetic chronic kidney disease; N18.9 Chronic kidney disease, unspecified; I25.10 Atherosclerotic heart disease of native coronary artery without angina pectoris; Z79.4 Long term (current) use of insulin; Z79.891 Long term (current) use of opiate analgesic; Z79.899 Other long term (current) drug therapy; Z85.528 Personal history of other malignant neoplasm of kidney; Z85.828 Personal history of other malignant neoplasm of skin; Z90.5 Acquired absence of kidney; Z95.1 Presence of aortocoronary bypass graft
CPT/HCPCS: 80048; 80076; 83690; 85025; 96361; 96374; 96375; 99283; J7030

== ENCOUNTER 2019-01-21 09:20 | Emergency (ER) | payer MEDICARE, SELFPAY ==
[2019-01-21 09:21] VITALS: BP 118/64; PULSE 88; RESP 17; TEMP 36.8; O2SAT 98; BMI 25.9
--- NOTE | 2019-01-21 10:18 | ED.DCSUM_ITS ---
- ER Visit Summary Date of Service: 01/21/19 Chief Complaint: Vomiting History of Present Illness: The patient is a 68 F presenting with nausea and vomiting. Patient states this has been ongoing for the past 4 weeks. She states she vomits 3-4 times per day. She tried Compazine last night and Phenergan this morning. She denies blood in her emesis. She states she had diarrhea last night. She complains of diffuse abdominal cramping. She has a history of cyclic vomiting syndrome. History of previous appendectomy, hysterectomy, partial nephrectomy. Physical Examination: Vitals are stable. Patient is afebrile. Alert no acute distress. HEENT exam is unremarkable. Neck is supple. Lungs are clear and equal bilaterally. Heart is regular rate and rhythm. Abdomen is soft nontender nondistended. No guarding or rebound Extremities are unremarkable. Skin is warm and dry. No focal neurologic deficit. Remainder of exam is unremarkable. Emergency Department Course and Treatment: Patient was given IV fluids, Zofran, Ativan. CBC, chemistries unremarkable other than potassium 3.3, glucose 121, creatinine 1.25. This is near her baseline. Liver lipase are normal. Patient is feeling improved. She is able to tolerate p.o. in the emergency department. She is advised to take her antinausea medicines at home. Advised to follow-up with her primary care physician. Advised return to ED for worsening complaints. Disposition: Discharge home Impression: Nausea, vomiting; history of cyclic vomiting syndrome This note was generated with [employer] dictation software. It may contain incorrect words, spelling, and punctuation that were not noted in review of the chart prior to signing ED Disposition - Plan for ED Patient: Referrals: Tae Banegas DO [Primary Care Provider] -
[2019-01-21] MEDS: 0.9% Normal Saline 1,000 ML 999 ML IV (11:07)
[2019-01-21] MEDS: Ondansetron 4 MG/2 ML Vial IV (11:07)
[2019-01-21] MEDS: LORazepam 2 MG/ML Syringe 0.5 MG IV (11:07)
[2019-01-21 11:18] LABS: Absolute Neutrophil Count 6.6 X10^3/uL (2.0-7.7); Basophil# 0.02 X10^3/uL; Basophil% 0.2 % (0-1); Eosinophil# 0.12 X10^3/uL; Eosinophils% 1.3 % (0-5); Hematocrit 35.9 % (37-47); Hemoglobin 12.7 g/dl (12.0-15.0); Lymphocyte % 20.2 % (19-41); Mean Corp Hgb Conc 35.4 g/gl (32-36); Mean Corpuscular Hgb 32.8 pg (27.0-32.0); Mean Corpuscular Volume 92.8 fL (81-99); Mean Platelet Vol. 9.4 fl (6.2-12.0); Monocyte# 0.77 X10^3/uL; Monocyte% 8.2 % (0-10); Neutrophil # 6.58 X10^3/uL (2.7-7.7); Neutrophil % 69.9 % (47-70); Platelet Count 226 K/mm3 (150-450); RBC Distribution Width CV 11.9 % (11.6-14.6); RBC Distribution Width SD 39.8 fl (35.1-43.9); Red Blood Count 3.87 M/mm3 (4.2-5.4); White Blood Count 9.4 K/mm3 (4.4-11.0)
[2019-01-21 11:19] LABS: POSITIVE COUNT NO; POSITIVE DIFFERENTIAL NO; POSITIVE MORPHOLOGY NO
[2019-01-21 11:37] LABS: ALB/GLOB Ratio 1.2 RATIO (0.9-2.4); AST(SGOT) 31 U/L (15-37); Alanine Aminotransfer ALT/SGPT 37 U/L (13-56); Albumin, Serum 3.3 g/dL (3.2-5.0); Alkaline Phosphatase 70 U/L (45-117); Anion Gap 7 (5-15); BUN 17 mg/dL (7-18); BUN/Creat Ratio 13.6 RATIO (10-20); Calcium,Total 8.2 mg/dL (8.5-10.1); Chloride 100 mmol/L (98-107); Creatinine, Serum 1.25 mg/dL (0.55-1.02); EST Glomerular Filtration Rate 46 mL/min (>60); Est Glom Filt Rate - Afr Amer 55 mL/min (>60); Estimated Creatinine Clearance 46.27 ml/min; Globulin 2.7 g/dL (2.2-4.2); Glucose 121 mg/dL (74-106); Lipase 270 U/L (73-393); Potassium 3.3 mmol/L (3.5-5.1); Sodium Level 136 mmol/L (136-145)
--- NOTE | 2019-01-21 12:44 | ED.DEP ---
ED Disposition - Plan for ED Patient: Instructions: ED Nausea Vomiting Referrals: Tae Banegas DO [Primary Care Provider] -
[2019-01-21 12:47] VITALS: PULSE 87; RESP 14; O2SAT 99
== END 2019-01-21 12:49 | disposition home or self-care (01) ==
PROVIDERS: Emergency Provider Emergency Medicine; Family Provider Student in an Organized Health Care Education/Training Program; PCP Student in an Organized Health Care Education/Training Program
DX: R11.2 Nausea with vomiting, unspecified (principal); R19.7 Diarrhea, unspecified; R10.9 Unspecified abdominal pain; I25.10 Atherosclerotic heart disease of native coronary artery without angina pectoris; E11.9 Type 2 diabetes mellitus without complications; Z79.4 Long term (current) use of insulin; Z79.899 Other long term (current) drug therapy; Z87.891 Personal history of nicotine dependence; Z90.710 Acquired absence of both cervix and uterus; Z90.5 Acquired absence of kidney; Z95.1 Presence of aortocoronary bypass graft
CPT/HCPCS: 80053; 83690; 85025; 96361; 96374; 96375; 99285; J7030; A4216; J2405

== ENCOUNTER 2019-02-24 15:32 | Emergency (ER) | payer MEDICARE, SELFPAY ==
[2019-02-24 15:32] VITALS: BP 191/92; PULSE 96; RESP 18; TEMP 36.5; O2SAT 100; BMI 25.1
--- NOTE | 2019-02-24 16:16 | ED.VIS.GEN ---
History of Present Illness Chief Complaint: Nausea/Vomiting Informant: Patient Onset: Days - Onset of nausea and vomiting 4 days ago Context: Sudden Onset Timing: Intermittent Quality: Vomiting Current Severity: Severe Maximum Severity: Severe Worsened by: PO intake Relieved by: nothing Associated Symptoms: thirst, decreased U/O Narrative: Patient is a 63-year-old woman with history of cyclic vomiting. She states she started vomiting 4 days ago. She has vomited numerous times the past 24 hours. She reports thirst, dry mouth and decreased urine output. She does report orthostatic symptoms. She has had GI workup with no etiology determined. She is never seen a therapist or psychiatrist. She is on multiple anti-emetics with no effect. She denies constipation, melena, hematochezia or diarrhea. She denies fever, chills or night sweats. She denies weight gain or loss to her knowledge. - Past Medical History (1) Atrial flutter Status: Chronic (2) Chronic kidney disease, stage 3 Status: Chronic (3) Coronary artery disease Status: Chronic Comment: cabg 1992 (4) Gastro-esophageal reflux disease without esophagitis Status: Chronic (5) History of partial nephrectomy Status: Chronic Comment: for malignant tumor 2014 [facility] (6) Hypertension Status: Chronic (7) Mild chronic obstructive pulmonary disease Status: Chronic (8) Peripheral neuropathy Status: Chronic (9) Peripheral vascular disease Status: Chronic (10) Type II diabetes mellitus Status: Chronic Past Medical History - Allergies and Home Meds Allergies/Adverse Reactions: Allergies diphenhydramine HCl [From Benadryl] Adverse Reaction (Verified 02/24/19 15:35) Other metoclopramide [From Reglan] Adverse Reaction (Verified 02/24/19 15:35) Other Primary Care Physician: Tae Banegas DO [Primary Care Provider] - Prior records reviewed: Yes Surgical History: coronary bypass surgery, hysterectomy, - - Back surgery. Lives: Alone Smoking Status: Former smoker Alcohol: None Drugs: None - Family History Maternal Family History: Family History (Last Reviewed 01/11/19 @ 00:11 by Peter Llamas MD) Mother Cancer Father Colon cancer Heart disease Sister Colon cancer Family History: Reports: No pertinent history Paternal Family History: Family History (Last Reviewed 01/11/19 @ 00:11 by Peter Llamas MD) Mother Cancer Father Colon cancer Heart disease Sister Colon cancer Family History: Reports: No pertinent history Review of Systems General: Denies: Chills, Fever, Sweats, Weight loss Eyes: Denies: Visual changes - bilaterally, Blurred Vision - bilaterally, Diplopia ENT: Denies: Rhinorrhea, Sore throat Cardiovascular: Denies: Chest pain, Palpitations Respiratory: Denies: Dyspnea, Cough, Dyspnea on exertion Gastrointestinal: Reports: Abdominal pain, Nausea, Vomiting. Denies: Diarrhea, Constipation, Melena, Hematochezia Genitourinary: Reports: - - Decrease urine output.. Denies: Dysuria, Hematuria, Frequency Musculoskeletal: Denies: Back pain, Extremity Pain Skin: Denies: Rash, Wounds Neurological: Denies: Headache, Weakness, Numbness Psych: Reports: Anxiety Hematologic: Denies: Easy bruising, Easy bleeding Physical Exam Vital Signs/Narrative: Vital Signs Temp Pulse Resp BP Pulse Ox 02/24/19 15:32 97.7 F L 96 18 191/92 H 100 Inital Vital Signs reviewed: Yes General: Well nourished, Well developed, No Acute Distress Head: Normocephalic, Atraumatic Eyes: Perrl, EOMI. Negative for: Pale conjunctiva ENT: No rhinorrhea, TM's clear, Dry mucous membranes Neck: Supple, Nontender, No lymphadenopathy, No JVD Cardiovascular: Regular rate, Regular rhythm, No murmurs, Normal S1, Normal S2 Respiratory: No distress, CTA bilaterally, Chest nontender Abdomen: Soft, Nontender, Nondistended, Normal bowel sounds, No masses Back: Nontender, Normal Inspection Extremities: Nontender, No edema Skin: Normal color, No rash Neurological: Alert, Oriented x3, Cranial nerves II-XII grossly intact, Normal Strength, Normal Sensation Psychological: Depressed Diagnostic/Tx/Re-eval - Rhythm Strip Rhythm Strip: Sinus Rhythm Rate: 92 Ectopy: None - Medical Decision Making In light of patient's multiple medical problems will obtain basic metabolic panel. A liter of normal saline was ordered. The cyclic vomiting order set was initiated. Concern for acute on chronic renal failure since she clinically appears dehydrated and reports decreased urine output with orthostatic symptoms. Patient has been observed for 4-1/2-5 hours. She passed p.o. challenge. Plan is to discharge with referral to behavioral health attention to . ED Disposition - Plan for ED Patient: Disposition: Home or Assisted Living Diagnosis: Cyclical vomiting without nausea, not intractable Instructions: ED Nausea Vomiting Referrals: Tae Banegas DO [Primary Care Provider] - Sofía Aiken MD [STAFF PHYSICIAN] - Additional Instructions: The telephone number for behavioral health is [phone].
[2019-02-24] MEDS: 0.9% Normal Saline 1,000 ML 1000 ML IV (16:25)
[2019-02-24] MEDS: Ondansetron 4 MG/2 ML Vial IV (16:25)
[2019-02-24] MEDS: LORazepam 2 MG/ML Syringe 0.5 MG IV (16:25)
[2019-02-24 16:40] LABS: Anion Gap 8 (5-15); BUN 34 mg/dL (7-18); BUN/Creat Ratio 22.1 RATIO (10-20); Calcium,Total 9.4 mg/dL (8.5-10.1); Chloride 94 mmol/L (98-107); Creatinine, Serum 1.54 mg/dL (0.55-1.02); EST Glomerular Filtration Rate 36 mL/min (>60); Est Glom Filt Rate - Afr Amer 43 mL/min (>60); Estimated Creatinine Clearance 37.55 ml/min; Glucose 210 mg/dL (74-106); Potassium 3.6 mmol/L (3.5-5.1); Sodium Level 132 mmol/L (136-145)
[2019-02-24 17:43] VITALS: BP 170/87; PULSE 92; RESP 18; O2SAT 99
[2019-02-24 18:26] LABS: Bacteria 0 SEEN /hpf (None Seen); Mucous, Urine 0 SEEN /hpf (<or=2+)
[2019-02-24 18:29] LABS: Color, Urine Yellow (Yellow); Glucose, Dipstick 100 mg/dl (Normal); Ketone-Dipstick Negative (Negative); Leukocyte Esterase-Dipstick 500 /ul (Negative); Nitrite-Dipstick Negative (Negative); Occult Blood-Urine 10 /ul (Negative); Protein-Dipstick 30 mg/dl (Negative); Specific Gravity, Urine 1.015 (1.002-1.030); Urine Bilirubin Dipstick Negative (Negative); Urine Clarity Sl. Cloudy (Clear); Urine Urobilinogen Normal (Normal)
[2019-02-24 18:39] LABS: White Blood Cells 50-100 SEEN /hpf (0-5)
[2019-02-24 18:40] LABS: Amorphous Sediment 1+ URATE; Red Blood Cells-Urine 0-5 SEEN /hpf (0-5); Squamous Epithelial Cells - UA 0-5 SEEN /hpf (5-10)
[2019-02-24 20:37] VITALS: BP 105/64; PULSE 109; RESP 15; O2SAT 97
--- NOTE | 2019-02-24 20:46 | ED.RN ---
SOCIAL WORK IN ROOM TALKING WITH PT.. PT HAS DC INSTRUCTIONS
--- NOTE | 2019-02-24 20:55 | CM.ED ---
SOCIAL WORK NOTE REFERRED BY DR. GIFFORD FOR [facility] REFERRAL. MET WITH PATIENT AND VISITOR IN ROOM. PATIENT BEING DISCHARGED AT THIS TIME. PATIENT GAVE PERMISSION TO SPEAK OPENLY IN FRONT OF VISITOR. PATIENT ADMITS TO HX OF ANXIETY AND DEPRESSION. VISITOR STATES WHEN PATIENT GETS SELF WORKED UP THAT IS WHEN SHE BEGINS TO VOMIT. SUPPORT, EDUCATION AND ACTIVE LISTENING PROVIDED. PATIENT IN AGREEMENT WITH DR. GIFFORD'S RECOMMENDATION FOR REFERRAL TO BE[facility]IORAL HEALTH SERVICES. BROCHURE GIVEN TO PATIENT ABOUT SERVICES AND REFERRAL MADE TO A[facility] IN [facility]. AISHWARYA TO FOLLOW UP WITH PATIENT ON WEDNESDAY. DARRELL CARLIN, SPRAY M[employer]ER, SECTION LEADER [employer].
== END 2019-02-24 20:54 | disposition home or self-care (01) ==
PROVIDERS: Emergency Provider Emergency Medicine; Family Provider Student in an Organized Health Care Education/Training Program; PCP Student in an Organized Health Care Education/Training Program
DX: G43.A0 Cyclical vomiting, in migraine, not intractable (principal); E11.22 Type 2 diabetes mellitus with diabetic chronic kidney disease; I12.9 Hypertensive chronic kidney disease with stage 1 through stage 4 chronic kidney disease, or unspecified chronic kidney disease; N18.3 Chronic kidney disease, stage 3 (moderate); E11.42 Type 2 diabetes mellitus with diabetic polyneuropathy; I48.92 Unspecified atrial flutter; J44.9 Chronic obstructive pulmonary disease, unspecified; Z79.4 Long term (current) use of insulin; Z79.891 Long term (current) use of opiate analgesic; Z79.899 Other long term (current) drug therapy; Z87.891 Personal history of nicotine dependence; Z90.5 Acquired absence of kidney
CPT/HCPCS: 80048; 81001; 96361; 96365; 96375; 99283; J7030; A4216; J2405; J3490

== ENCOUNTER 2019-03-03 19:14 | Emergency (ER) | payer MEDICARE, SELFPAY ==
[2019-03-03 19:15] VITALS: BP 118/73; PULSE 112; PULSE 114; RESP 17; TEMP 36.7; O2SAT 97; O2SAT 98; BMI 24.8
--- NOTE | 2019-03-03 19:55 | ED.DCSUM_ITS ---
- ER Visit Summary Date of Service: 03/03/19 Chief Complaint: Nausea and vomiting History of Present Illness: The patient is a 68 F who presents with nausea and vomiting for the past 6 days. Patient states she has a history of cyclic vomiting syndrome. Patient states she has pain over her abdomen. Patient states her pain is diffuse and aching. Patient denies any hematemesis or coffee-ground emesis. Patient states she has been able to keep some fluids down. Patient denies any diarrhea, melena, or hematochezia. Patient denies any dysuria or hematuria. Physical Examination: Vital signs are stable except for mild tachycardia of 114. Patient is afebrile. Patient is in no acute distress. Oral mucosa is pink and moist. Neck is supple. Trachea is midline. There is no JVD noted. Heart was regular and slightly tachycardic. Lungs are clear and equal bilaterally. Abdomen is soft. Bowel sounds are normal. There is upper abdominal tenderness. There is no rebound or guarding noted. Cranial nerves II through XII are intact. There are no focal motor or sensory deficits noted. Test Results: CBC shows mild leukocytosis of 12.1. Basic metabolic profile showed a BUN of 20 and creatinine of 1.30. These are consistent with prior results. Emergency Department Course and Treatment: Patient was given IV fluids and Phenergan. Patient still complained of some nausea but did not have any vomiting here. Patient was given a repeat dose of Phenergan and a dose of morphine. Patient was instructed to start with small sips of fluids frequently. Patient was instructed to advance her diet as tolerated. Patient was given a prescription for Phenergan suppositories. Patient was instructed to follow-up with her primary care physician in 3-5 days. Patient understood and was agreeable with the plan. All questions were answered. Disposition: Discharge home Impression: Nausea and vomiting This note was generated with [employer] dictation software. It may contain incorrect words, spelling, and punctuation that were not noted in review of the chart prior to signing ED Disposition - Plan for ED Patient: Disposition: Home or Assisted Living Diagnosis: Nausea and vomiting Instructions: ED Nausea Vomiting Prescriptions: proMETHazine suppository [Phenergan Suppository] 25 mg RECTAL Q6H PRN PRN #6 suppos. PRN Reason: Nausea Referrals: Tae Banegas DO [Primary Care Provider] - 5-7 Days
[2019-03-03] MEDS: proMETHazine 25 MG/ML Syringe 6.25 MG IV ×2 (20:03→22:06)
[2019-03-03] MEDS: 0.9% Normal Saline 1,000 ML 1000 ML IV (20:03)
[2019-03-03 20:17] LABS: Absolute Lymphocyte Count 1.79 X10^3/ul (0.83-4.51); Absolute Neutrophil Count 9.5 X10^3/uL (2.0-7.7); Basophil# 0.02 X10^3/uL; Basophil% 0.2 % (0-1); Eosinophil# 0.02 X10^3/uL; Eosinophils% 0.2 % (0-5); Hematocrit 43.7 % (37-47); Hemoglobin 15.2 g/dl (12.0-15.0); Lymphocyte # 1.79 X10^3/ul (4.0); Lymphocyte % 14.8 % (19-41); Mean Corp Hgb Conc 34.8 g/gl (32-36); Mean Corpuscular Hgb 31.1 pg (27.0-32.0); Mean Corpuscular Volume 89.5 fL (81-99); Mean Platelet Vol. 9.6 fl (6.2-12.0); Monocyte# 0.75 X10^3/uL; Monocyte% 6.2 % (0-10); Neutrophil # 9.46 X10^3/uL (2.7-7.7); Neutrophil % 78.4 % (47-70); Platelet Count 293 K/mm3 (150-450); RBC Distribution Width CV 13.1 % (11.6-14.6); RBC Distribution Width SD 42.6 fl (35.1-43.9); Red Blood Count 4.88 M/mm3 (4.2-5.4); White Blood Count 12.1 K/mm3 (4.4-11.0)
[2019-03-03 20:23] LABS: POSITIVE COUNT NO; POSITIVE DIFFERENTIAL NO; POSITIVE MORPHOLOGY NO
[2019-03-03 20:39] LABS: ALB/GLOB Ratio 1.2 RATIO (0.9-2.4); AST(SGOT) 17 U/L (15-37); Alanine Aminotransfer ALT/SGPT 24 U/L (13-56); Alkaline Phosphatase 100 U/L (45-117); Anion Gap 11 (5-15); BUN 20 mg/dL (7-18); BUN/Creat Ratio 15.4 RATIO (10-20); Calcium,Total 8.9 mg/dL (8.5-10.1); Chloride 95 mmol/L (98-107); EST Glomerular Filtration Rate 44 mL/min (>60); Est Glom Filt Rate - Afr Amer 53 mL/min (>60); Estimated Creatinine Clearance 44.49 ml/min; Globulin 3.3 g/dL (2.2-4.2); Glucose 206 mg/dL (74-106); Lipase 92 U/L (73-393); Potassium 3.4 mmol/L (3.5-5.1); Protein, Total 7.3 g/dL (6.4-8.2); Sodium Level 135 mmol/L (136-145)
[2019-03-03] MEDS: Morphine 4 MG/ML Syringe IV (22:07)
[2019-03-03 22:10] VITALS: BP 160/103; PULSE 100; RESP 16; O2SAT 98
[2019-03-03 22:33] VITALS: PULSE 100; RESP 16; O2SAT 99
== END 2019-03-03 22:40 | disposition home or self-care (01) ==
PROVIDERS: Emergency Provider Emergency Medicine; Family Provider Student in an Organized Health Care Education/Training Program; PCP Student in an Organized Health Care Education/Training Program
DX: R11.2 Nausea with vomiting, unspecified (principal); R10.84 Generalized abdominal pain; E11.9 Type 2 diabetes mellitus without complications; I25.10 Atherosclerotic heart disease of native coronary artery without angina pectoris; R00.0 Tachycardia, unspecified; R06.00 Dyspnea, unspecified; Z79.4 Long term (current) use of insulin; Z79.899 Other long term (current) drug therapy; Z85.528 Personal history of other malignant neoplasm of kidney; Z90.5 Acquired absence of kidney; Z95.1 Presence of aortocoronary bypass graft
CPT/HCPCS: 80053; 83690; 85025; 96361; 96374; 96375; 96376; 99283; J7030; A4216

== ENCOUNTER 2019-03-07 18:03 | Emergency (ER) | payer MEDICARE, SELFPAY ==
[2019-03-07 18:03] VITALS: BP 154/84; PULSE 101; RESP 20; TEMP 36.9; O2SAT 97; BMI 25.1
--- NOTE | 2019-03-07 18:33 | ED.VISSUMM ---
- ER Visit Summary Date of Service: 03/07/19 Chief Complaint: Abdominal pain, vomiting History of Present Illness: The patient is a 68 F presenting with abdominal pain and vomiting. She states she has a history of cyclic vomiting syndrome. She states she has been vomiting for 7 days. She was seen in the ED 4 days ago and at that time stated that she was vomiting for 6 days. She denies diarrhea or constipation. She complains of dysuria. She denies fever. She has Zofran at home. Denies other complaints. Physical Examination: Vitals are stable. Patient is afebrile. Alert no acute distress. HEENT exam is unremarkable. Neck is supple. Lungs are clear and equal bilaterally. Heart is regular rate and rhythm. Abdomen is soft upper abdominal tenderness with no rebound or guarding Extremities are unremarkable. Skin is warm and dry. No focal neurologic deficit. Remainder of exam is unremarkable. Emergency Department Course and Treatment: Patient was given IV fluids, Phenergan. Chemistries show sodium 133, potassium 3.3, glucose 123, BUN 21, creatinine 1.23. This is at her baseline. CBC unremarkable. Urinalysis unremarkable. Patient continues to have nausea and was given morphine, Phenergan IV. She was then given Ativan with improvement. On reevaluation, she is resting comfortably. She states she has a Phenergan prescription at home. She will follow-up with her primary care physician. Advised return to ED if worsening complaints. Disposition: Discharge home Impression: Cyclic vomiting syndrome This note was generated with [employer] dictation software. It may contain incorrect words, spelling, and punctuation that were not noted in review of the chart prior to signing ED Disposition - Plan for ED Patient: Instructions: ED Abdominal Pain Unkn Cause Referrals: Tae Banegas DO [Primary Care Provider] -
[2019-03-07] MEDS: proMETHazine 25 MG/ML Syringe 6.25 MG IV ×2 (18:42→20:54)
[2019-03-07] MEDS: 0.9% Normal Saline 1,000 ML 1000 ML IV (18:42)
[2019-03-07 18:56] LABS: Absolute Lymphocyte Count 1.69 X10^3/ul (0.83-4.51); Absolute Neutrophil Count 7.4 X10^3/uL (2.0-7.7); Basophil# 0.02 X10^3/uL; Basophil% 0.2 % (0-1); Eosinophil# 0.05 X10^3/uL; Eosinophils% 0.5 % (0-5); Hematocrit 42.6 % (37-47); Hemoglobin 14.8 g/dl (12.0-15.0); Lymphocyte # 1.69 X10^3/ul (4.0); Lymphocyte % 17.4 % (19-41); Mean Corp Hgb Conc 34.7 g/gl (32-36); Mean Corpuscular Hgb 30.1 pg (27.0-32.0); Mean Corpuscular Volume 86.8 fL (81-99); Mean Platelet Vol. 9.6 fl (6.2-12.0); Monocyte% 5.2 % (0-10); Neutrophil # 7.41 X10^3/uL (2.7-7.7); Neutrophil % 76.4 % (47-70); Platelet Count 301 K/mm3 (150-450); RBC Distribution Width CV 12.6 % (11.6-14.6); RBC Distribution Width SD 39.4 fl (35.1-43.9); Red Blood Count 4.91 M/mm3 (4.2-5.4); White Blood Count 9.7 K/mm3 (4.4-11.0)
[2019-03-07 19:12] LABS: ALB/GLOB Ratio 1.2 RATIO (0.9-2.4); AST(SGOT) 21 U/L (15-37); Alanine Aminotransfer ALT/SGPT 22 U/L (13-56); Alkaline Phosphatase 92 U/L (45-117); Anion Gap 10 (5-15); BUN 21 mg/dL (7-18); BUN/Creat Ratio 17.1 RATIO (10-20); Calcium,Total 9.1 mg/dL (8.5-10.1); Chloride 93 mmol/L (98-107); Creatinine, Serum 1.23 mg/dL (0.55-1.02); EST Glomerular Filtration Rate 46 mL/min (>60); Est Glom Filt Rate - Afr Amer 56 mL/min (>60); Estimated Creatinine Clearance 47.02 ml/min; Globulin 3.4 g/dL (2.2-4.2); Glucose 123 mg/dL (74-106); Potassium 3.3 mmol/L (3.5-5.1); Protein, Total 7.4 g/dL (6.4-8.2); Sodium Level 133 mmol/L (136-145)
[2019-03-07 19:33] LABS: POSITIVE COUNT NO; POSITIVE DIFFERENTIAL NO; POSITIVE MORPHOLOGY NO
[2019-03-07 20:11] LABS: Mucous, Urine 0 SEEN /hpf (<or=2+); Red Blood Cells-Urine 0 SEEN /hpf (0-5)
[2019-03-07 20:26] LABS: Color, Urine Straw (Yellow); Glucose, Dipstick Normal (Normal); Ketone-Dipstick Negative (Negative); Leukocyte Esterase-Dipstick 100 /ul (Negative); Nitrite-Dipstick Negative (Negative); Occult Blood-Urine Negative /ul (Negative); Protein-Dipstick Negative (Negative); Urine Bilirubin Dipstick Negative (Negative); Urine Clarity Sl. Cloudy (Clear); Urine Urobilinogen Normal (Normal)
[2019-03-07 20:32] LABS: Bacteria 1+ /hpf (None Seen); Squamous Epithelial Cells - UA 0-5 SEEN /hpf (5-10); White Blood Cells 0-5 SEEN /hpf (0-5)
[2019-03-07] MEDS: Morphine 4 MG/ML Syringe IV (20:54)
[2019-03-07 20:57] VITALS: BP 152/81; PULSE 85; RESP 16; O2SAT 100
[2019-03-07] MEDS: Ondansetron 4 MG/2 ML Vial IV (22:23)
[2019-03-07] MEDS: LORazepam 2 MG/ML Syringe 0.5 MG IV (22:28)
--- NOTE | 2019-03-07 22:58 | ED.DEP ---
ED Disposition - Plan for ED Patient: Instructions: ED Abdominal Pain Unkn Cause Referrals: Tae Banegas DO [Primary Care Provider] -
[2019-03-07 23:17] VITALS: BP 103/61; PULSE 85; RESP 14; O2SAT 95
[2019-03-07 23:18] VITALS: BP 103/61; PULSE 85; RESP 14; O2SAT 95
== END 2019-03-07 23:20 | disposition home or self-care (01) ==
PROVIDERS: Emergency Provider Emergency Medicine; Family Provider Student in an Organized Health Care Education/Training Program; PCP Student in an Organized Health Care Education/Training Program
DX: G43.A0 Cyclical vomiting, in migraine, not intractable (principal); R10.10 Upper abdominal pain, unspecified; I10 Essential (primary) hypertension; E11.9 Type 2 diabetes mellitus without complications; Z79.4 Long term (current) use of insulin; Z79.899 Other long term (current) drug therapy; Z87.891 Personal history of nicotine dependence
CPT/HCPCS: 80053; 81001; 85025; 96361; 96374; 96375; 96376; 99283; J7030; A4216; J2405

== ENCOUNTER 2019-03-25 15:35 | Emergency (ER) | payer MEDICARE, SELFPAY ==
[2019-03-25 15:36] VITALS: BP 138/81; PULSE 102; RESP 15; TEMP 36.6; O2SAT 97; BMI 23.3
--- NOTE | 2019-03-25 16:08 | ED.DCSUM_ITS ---
History of Present Illness Chief Complaint: Abd Pain Informant: Patient Onset: Weeks - 8 Context: Gradual Onset Timing: Continuous, Waxes and wanes Quality: burn, ache Location: epigastric, LUQ Current Severity: Moderate Maximum Severity: Severe Worsened by: vomiting Relieved by: ER intravenous medications Associated Symptoms: n/v Narrative: Patient diagnosed with cyclic vomiting syndrome and feels like she is having a flareup. She was last here 1-2 weeks ago, states that she has been vomiting ever since and having trouble keeping stuff down especially overnight. She did take her medications this morning was able to keep those down, that includes Zofran but it is not helping. She denies any hematemesis, bright red blood per rectum or diarrhea or melena. No fevers. Occasionally some chest burning along with vomiting that makes that worse, typical of her cyclic vomiting issues. She denies having any new problems, just a flareup of the chronic ones. She had a scope 2 days ago at [facility] for this, she states they saw a red area in her stomach and took some biopsies and are going to see her back. She has no mental health issues but is following up with a psychiatrist after this weekend. - Past Medical History (1) Atrial flutter Status: Chronic (2) Chronic kidney disease, stage 3 Status: Chronic (3) Coronary artery disease Status: Chronic Comment: cabg 1992 (4) Gastro-esophageal reflux disease without esophagitis Status: Chronic (5) Hypertension Status: Chronic (6) Mild chronic obstructive pulmonary disease Status: Chronic (7) Peripheral neuropathy Status: Chronic (8) Peripheral vascular disease Status: Chronic (9) Type II diabetes mellitus Status: Chronic Past Medical History - Allergies and Home Meds Allergies/Adverse Reactions: Allergies diphenhydramine HCl [From Benadryl] Adverse Reaction (Verified 03/25/19 15:40) Other metoclopramide [From Reglan] Adverse Reaction (Verified 03/25/19 15:40) Other Primary Care Physician: Tae Banegas DO [Primary Care Provider] - Surgical History: coronary bypass surgery, hysterectomy, - - Back surgery. partial nephrectomy for cancer. Smoking Status: Former smoker Drugs: None - Family History Maternal Family History: Family History (Last Reviewed 03/07/19 @ 19:14 by Peter Llamas MD) Mother Cancer Father Colon cancer Heart disease Sister Colon cancer Family History: Reports: No pertinent history Paternal Family History: Family History (Last Reviewed 03/07/19 @ 19:14 by Peter Llamas MD) Mother Cancer Father Colon cancer Heart disease Sister Colon cancer Family History: Reports: No pertinent history Review of Systems General: Reports: Malaise, - - lightheaded w/ standing. no syncope.. Denies: Chills, Fever, Sweats Eyes: Denies: Visual changes - bilaterally, Diplopia ENT: Denies: Rhinorrhea, Sore throat Cardiovascular: Reports: Chest pain. Denies: Palpitations Respiratory: Denies: Dyspnea, Cough, Dyspnea on exertion Gastrointestinal: Reports: Abdominal pain, Nausea, Vomiting. Denies: Diarrhea, Melena, Hematochezia Genitourinary: Denies: Dysuria, Hematuria, Frequency Musculoskeletal: Reports: Back pain - chronic, unchanged. Denies: Neck pain, Extremity Pain Skin: Denies: Rash, Wounds Neurological: Denies: Headache, Weakness, Numbness Physical Exam Vital Signs/Narrative: Vital Signs Temp Pulse Resp BP Pulse Ox 03/25/19 15:36 97.9 F 102 H 15 138/81 H 97 Inital Vital Signs reviewed: Yes General: Well nourished, Well developed, No Acute Distress Head: Normocephalic, Atraumatic Eyes: Perrl, EOMI ENT: Moist mucous membranes, No rhinorrhea Neck: Supple, Nontender Cardiovascular: Regular rate, Regular rhythm, No murmurs Respiratory: No distress, CTA bilaterally, Chest nontender Abdomen: Soft, Nondistended, Normal bowel sounds, Tender - epigastric and LUQ only.. Negative for: Guarding, Rebound tenderness Back: Nontender, Normal Inspection Extremities: Nontender, No edema Skin: Normal color, No rash Neurological: Alert, Oriented x3, Cranial nerves II-XII grossly intact, Normal Strength, Normal Sensation Psychological: Normal affect, Normal Mood Diagnostic/Tx/Re-eval Laboratory Tests 03/25/19 03/25/19 Range/Units 15:55 15:55 WBC 9.2 (4.4-11.0) K/mm3 RBC 4.94 (4.2-5.4) M/mm3 Hgb 15.2 H (12.0-15.0) g/dl Hct 43.9 (37-47) % MCV 88.9 (81-99) fL MCH 30.8 (27.0-32.0) pg MCHC 34.6 (32-36) g/gl RDW 13.2 (11.6-14.6) % RDW Differential 42.5 (35.1-43.9) fl Plt Count 260 (150-450) K/mm3 MPV 9.5 (6.2-12.0) fl Immature Gran % (Auto) 0.200 (0.0-0.9) % Neut % (Auto) 74.6 H (47-70) % Lymph % (Auto) 20.0 (19-41) % [place] % (Auto) 4.9 (0-10) % Eos % (Auto) 0.2 (0-5) % Baso % (Auto) 0.1 (0-1) % Absolute Neuts (auto) 6.9 (2.0-7.7) X10^3/uL Absolute Lymphs (auto) 1.84 (0.83-4.51) X10^3/ul Total Counted Not Reportable Sodium 134 L (136-145) mmol/L Potassium 2.9 L (3.5-5.1) mmol/L Chloride 95 L (98-107) mmol/L Carbon Dioxide 31.0 (21.0-32.0) mmol/L Anion Gap 8 (5-15) BUN 15 (7-18) mg/dL Creatinine 1.25 H (0.55-1.02) mg/dL Estim Creat Clear Calc 47.87 ml/min Est GFR (MDRD) Af Amer 55 L (>60) mL/min Est GFR (MDRD) Non-Af 46 L (>60) mL/min BUN/Creatinine Ratio 12.0 (10-20) RATIO Glucose 192 H (74-106) mg/dL Calcium 9.1 (8.5-10.1) mg/dL Lipase 111 (73-393) U/L - Medical Decision Making Labs show potassium of 2.9. They are otherwise unremarkable with chronic renal sufficiency similar to baseline. She was initially given a liter of fluid, Phenergan, morphine. She had some improvement but still felt nauseated and had pain. She was given potassium chloride 10 mEq IV over an hour to help replace her potassium. She was additionally given Zofran, later followed by Thorazine which seemed to help. She wanted another bag of IV fluid, which She is drinking water and has had no vomiting in the emergency department. I feel she is stable for discharge home and a prescription for potassium is given as well. ED Disposition - Plan for ED Patient: Disposition: Home or Assisted Living Diagnosis: Hypokalemia due to loss of potassium, Chronic kidney disease, stage 3, Cyclic vomiting syndrome, Vomiting Instructions: ED Nausea Vomiting, ED Potassium Deficiency Prescriptions: proMETHazine tablet [Phenergan] 25 mg PO Q6H PRN PRN #12 tablet PRN Reason: Nausea Potassium Chloride [K-Dur] 20 meq PO BID #8 tablet Referrals: Tae Banegas, [Primary Care Provider] - 3-5 Days if not improving
[2019-03-25] MEDS: proMETHazine 25 MG/ML Syringe 12.5 MG IV (16:12)
[2019-03-25] MEDS: 0.9% Normal Saline 1,000 ML 999 ML IV ×2 (16:12→20:00)
[2019-03-25] MEDS: Morphine 4 MG/ML Syringe IV (16:12)
[2019-03-25 16:16] LABS: Absolute Lymphocyte Count 1.84 X10^3/ul (0.83-4.51); Absolute Neutrophil Count 6.9 X10^3/uL (2.0-7.7); Basophil# 0.01 X10^3/uL; Basophil% 0.1 % (0-1); Eosinophil# 0.02 X10^3/uL; Eosinophils% 0.2 % (0-5); Hematocrit 43.9 % (37-47); Hemoglobin 15.2 g/dl (12.0-15.0); Lymphocyte # 1.84 X10^3/ul (4.0); Mean Corp Hgb Conc 34.6 g/gl (32-36); Mean Corpuscular Hgb 30.8 pg (27.0-32.0); Mean Corpuscular Volume 88.9 fL (81-99); Mean Platelet Vol. 9.5 fl (6.2-12.0); Monocyte# 0.45 X10^3/uL; Monocyte% 4.9 % (0-10); Neutrophil # 6.86 X10^3/uL (2.7-7.7); Neutrophil % 74.6 % (47-70); Platelet Count 260 K/mm3 (150-450); RBC Distribution Width CV 13.2 % (11.6-14.6); RBC Distribution Width SD 42.5 fl (35.1-43.9); Red Blood Count 4.94 M/mm3 (4.2-5.4); White Blood Count 9.2 K/mm3 (4.4-11.0)
[2019-03-25 16:17] LABS: POSITIVE COUNT NO; POSITIVE DIFFERENTIAL NO; POSITIVE MORPHOLOGY NO
[2019-03-25 16:26] LABS: Anion Gap 8 (5-15); BUN 15 mg/dL (7-18); Calcium,Total 9.1 mg/dL (8.5-10.1); Chloride 95 mmol/L (98-107); Creatinine, Serum 1.25 mg/dL (0.55-1.02); EST Glomerular Filtration Rate 46 mL/min (>60); Est Glom Filt Rate - Afr Amer 55 mL/min (>60); Estimated Creatinine Clearance 47.87 ml/min; Glucose 192 mg/dL (74-106); Lipase 111 U/L (73-393); Potassium 2.9 mmol/L (3.5-5.1); Sodium Level 134 mmol/L (136-145)
[2019-03-25] MEDS: Ondansetron 4 MG/2 ML Vial IV (17:15)
[2019-03-25] MEDS: Potassium Chloride 10mEq/100mL 10 MEQ/100 ML IV.SOLN. 100 MEQ IV BOLUS (17:16)
[2019-03-25 17:45] VITALS: BP 121/56; PULSE 78; RESP 16; O2SAT 98
[2019-03-25 19:10] VITALS: BP 166/88; PULSE 84; RESP 16; O2SAT 98
[2019-03-25 21:02] VITALS: PULSE 87; RESP 16; O2SAT 99
[2019-03-25 22:54] VITALS: BP 105/59; PULSE 87; RESP 16; O2SAT 98
== END 2019-03-25 23:01 | disposition home or self-care (01) ==
PROVIDERS: Emergency Provider Emergency Medicine; Family Provider Student in an Organized Health Care Education/Training Program; PCP Student in an Organized Health Care Education/Training Program
DX: G43.A0 Cyclical vomiting, in migraine, not intractable (principal); E87.6 Hypokalemia; I12.9 Hypertensive chronic kidney disease with stage 1 through stage 4 chronic kidney disease, or unspecified chronic kidney disease; E11.22 Type 2 diabetes mellitus with diabetic chronic kidney disease; N18.3 Chronic kidney disease, stage 3 (moderate); I48.92 Unspecified atrial flutter; I25.10 Atherosclerotic heart disease of native coronary artery without angina pectoris; J44.9 Chronic obstructive pulmonary disease, unspecified; E11.42 Type 2 diabetes mellitus with diabetic polyneuropathy; I73.9 Peripheral vascular disease, unspecified; K21.9 Gastro-esophageal reflux disease without esophagitis; Z79.4 Long term (current) use of insulin; Z79.899 Other long term (current) drug therapy; Z85.528 Personal history of other malignant neoplasm of kidney; Z87.891 Personal history of nicotine dependence; Z90.5 Acquired absence of kidney; Z95.1 Presence of aortocoronary bypass graft
CPT/HCPCS: 80048; 83690; 85025; 96361; 96365; 96366; 96367; 96375; 99283; J7030; J7050; A4216; J2405; J3490

== ENCOUNTER 2019-03-29 11:49 | Emergency (ER) | payer MEDICARE, SELFPAY ==
[2019-03-29 11:50] VITALS: BP 144/77; PULSE 84; RESP 12; TEMP 37.1; O2SAT 99; BMI 25.1
--- NOTE | 2019-03-29 12:09 | CT_ITS ---
STUDY: CT BRAIN WITHOUT CONTRAST REASON FOR EXAM: Female, 68 years old. Fall. Pain to head. Takes daily aspirin. RADIATION DOSAGE (If Supplied By Facility): CTDIvol = ( 60.81 ) mGy, DLP = ( 1158.30 ) mGycm TECHNIQUE: Transaxial CT imaging of the brain was performed without administration of intravenous contrast material. Coronal and sagittal reconstructions were performed. Individualized dose optimization techniques were used for this CT. COMPARISON: None. FINDINGS: Normal soft tissue structures. Normal calvarium. Normal size ventricles and extra-axial spaces for the patient's age. Few hypodensities in white matter of the cerebral hemispheres are chronic white matter ischemic changes. No mass effects and no midline shift. Normal basal ganglia and thalami. Normal brainstem. Normal cerebellum. There is no intracranial hemorrhage. There are no findings of an acute ischemic infarction. Normal visualized paranasal sinuses. CT/Brain/Head without Contrast IMPRESSION: No CT evidence of intracranial bleeding, acute ischemic infarct or acute intracranial abnormality. Electronically Signed: Jasvir Aden MD at 13:59 EDT , Service support ,
--- NOTE | 2019-03-29 12:10 | CT_ITS ---
STUDY: CT CERVICAL SPINE WITHOUT CONTRAST REASON FOR EXAM: Female, 68 years old. Fall. Pain to head. Takes daily aspirin. RADIATION DOSAGE (If Supplied By Facility): CTDIvol = ( 28.89 ) mGy, DLP = ( 631.66 ) mGycm TECHNIQUE: High resolution transaxial imaging was performed without contrast material. Sagittal and coronal images were reconstructed. Individualized dose optimization techniques were used for this CT. COMPARISON: None FINDINGS: Normal craniovertebral junction. Normal anterior atlantoaxial articulation. Normal odontoid process. Normal cervical lordosis. Normal vertebral bodies and posterior osseous elements. C2-3: Normal endplates. Normal disc height and morphology. Normal central canal and intervertebral neuroforamina. C3-4: Normal endplates. Normal disc height and morphology. Normal central canal and intervertebral neuroforamina. C4-5: Normal endplates. Normal disc height and morphology. Normal central canal and intervertebral neuroforamina. Asymmetric calcifications of the posterior ligamenta flava, left thicker than right. C5-6: Normal endplates. Normal disc height and morphology. Normal central canal and intervertebral neuroforamina. Asymmetric calcifications of the posterior ligamenta flava. C6-7: Normal endplates. Normal disc height. Mild degenerative anterolisthesis of C6 on C7. Normal central canal and bilateral intervertebral neural foramina. Moderate right degenerative facet arthropathy. Mild left degenerative facet arthropathy. Calcifications of the posterior ligamenta flava. C7-T1: Normal endplates. Normal disc height and morphology. Normal central canal and intervertebral neuroforamina. Normal visualized soft tissue structures. CT/Spine Cervical without Contras IMPRESSION: 1. No acute fracture of the cervical spine and the craniocervical junction. 2. Mild degenerative anterolisthesis of C6 on C7. 3. Calcifications of the posterior ligament of flava at C4-C5 down to C6-C7 disc space levels. Electronically Signed: Jasvir Aden MD at 14:17 EDT , Service support ,
--- NOTE | 2019-03-29 12:10 | CT_ITS ---
STUDY: CT CHEST WITHOUT CONTRAST REASON FOR EXAM: Female, 68 years old. Fall. Pain to head. Headaches daily aspirin. RADIATION DOSAGE (If Supplied By Facility): CTDIvol = ( 19.21 ) mGy, DLP = ( 635.19 ) mGycm TECHNIQUE: Transaxial imaging was performed without the administration of intravenous contrast material. Coronal and sagittal reconstructions were performed. Individualized dose optimization techniques were used for this CT. COMPARISON: None. FINDINGS: Pulmonary hyperinflation. No suspicious pulmonary nodules or infiltrates. No centrilobular cysts. No paraseptal cysts. No blebs. Mild peribronchial thickening. Minimal subpleural reticulation in both lungs. No pleural fluid. Normal cardiac size. Extensive atherosclerotic calcifications of the coronary arteries. Trace right anterior pericardial fluid and/or thickening. Median sternotomy from CABG procedure. Normal hilar regions. Normal unenhanced pulmonary arteries. Atherosclerotic calcifications along the thoracic aorta. Minimal anterior wedging of the upper T11 vertebral body is presumably from remote injury. No acute osseous abnormality. Prominent hiatal hernia. CT/Chest without Contrast IMPRESSION: 1. Airwave predominant type of COPD. 2. No CT evidence of pulmonary nodules or acute abnormality in the chest. 3. Minimal anterior wedging of upper T11 vertebral body is presumably from remote injury. 4. Prominent hiatal hernia. Electronically Signed: Jasvir Aden MD at 14:24 EDT , Service support ,
[2019-03-29] MEDS: 0.9% Normal Saline 1,000 ML 15 ML IV (12:37)
[2019-03-29] MEDS: Ondansetron 4 MG/2 ML Vial IV (12:37)
[2019-03-29] MEDS: fentaNYL 100 MCG/2 ML Ampul 25 MCG IV (12:37)
[2019-03-29 13:00] LABS: Absolute Lymphocyte Count 1.71 X10^3/ul (0.83-4.51); Absolute Neutrophil Count 5.2 X10^3/uL (2.0-7.7); Basophil# 0.01 X10^3/uL; Basophil% 0.1 % (0-1); Eosinophil# 0.06 X10^3/uL; Eosinophils% 0.8 % (0-5); Hematocrit 39.7 % (37-47); Hemoglobin 13.9 g/dl (12.0-15.0); Lymphocyte # 1.71 X10^3/ul (4.0); Lymphocyte % 22.8 % (19-41); Mean Corpuscular Hgb 30.3 pg (27.0-32.0); Mean Corpuscular Volume 86.5 fL (81-99); Mean Platelet Vol. 9.3 fl (6.2-12.0); Monocyte# 0.49 X10^3/uL; Monocyte% 6.5 % (0-10); Neutrophil # 5.22 X10^3/uL (2.7-7.7); Neutrophil % 69.5 % (47-70); Platelet Count 198 K/mm3 (150-450); RBC Distribution Width CV 12.5 % (11.6-14.6); RBC Distribution Width SD 38.7 fl (35.1-43.9); Red Blood Count 4.59 M/mm3 (4.2-5.4); White Blood Count 7.5 K/mm3 (4.4-11.0)
[2019-03-29 13:10] LABS: POSITIVE COUNT NO; POSITIVE DIFFERENTIAL NO; POSITIVE MORPHOLOGY NO
[2019-03-29 13:11] LABS: Anion Gap 9 (5-15); BUN 18 mg/dL (7-18); BUN/Creat Ratio 14.1 RATIO (10-20); Calcium,Total 8.4 mg/dL (8.5-10.1); Chloride 97 mmol/L (98-107); Creatinine, Serum 1.28 mg/dL (0.55-1.02); EST Glomerular Filtration Rate 44 mL/min (>60); Est Glom Filt Rate - Afr Amer 54 mL/min (>60); Estimated Creatinine Clearance 45.18 ml/min; Glucose 141 mg/dL (74-106); Potassium 2.9 mmol/L (3.5-5.1); Sodium Level 135 mmol/L (136-145)
--- NOTE | 2019-03-29 13:13 | RAD_ITS ---
STUDY: X-RAY - LEFT SHOULDER REASON FOR EXAM: Female, 68 years old. Left shoulder pain from fall injury. TECHNIQUE: 2 view(s) of the shoulder. COMPARISON: None. FINDINGS: Normal glenohumeral articulation. Normal acromioclavicular joint. Normal acromion. Normal humeral head and visualized proximal humerus. The soft tissue structures are unremarkable. Normal visualized pulmonary apex. RAD/Shoulder min 2 Views IMPRESSION: No suspicious acute fracture or dislocation of the left shoulder. Electronically Signed: Jasvir Aden MD at 14:27 EDT , Service support ,
[2019-03-29 13:17] LABS: Prothrombin Time (Protime)PT. 13.1 SECONDS (11.7-14.9)
[2019-03-29 13:18] LABS: Partial Thromboplast Time 27.5 Seconds (24.1-36.2)
[2019-03-29 13:49] VITALS: PULSE 65; RESP 15; O2SAT 99
--- NOTE | 2019-03-29 15:37 | ED.DCSUM_ITS ---
- ER Visit Summary Date of Service: 03/29/19 Chief Complaint: Fall History of Present Illness: The patient is a 68 F who was walking in her neighborhood and tripped on uneven sidewalk. She fell forward striking her head. She planing of head, neck, left shoulder, back pain. She is not on anticoagulants. Physical Examination: Vital signs unremarkable. Head neck examination was abrasions to the left forehead and the left maxilla. Left upper eyelid is edematous and ecchymotic. Pupils are equal and reactive. C-collar is in place. Heart is regular rate and rhythm. Lung sounds are clear. Chest wall is nontender. Abdomen is soft and nontender. Pelvis is stable. Extremity examination reveals tenderness around the left shoulder with no obvious sign of dislocation. Neuro exam reveals no focal deficits. Test Results: CBC is unremarkable. Chemistry studies significant for potassium of 2.9 and creatinine 1.28. Coags are normal. Left shoulder x-ray reveals no fracture or dislocation. CT the head shows no bleed. CT C-spine shows no fracture. Mild degenerative anterolisthesis is noted. CT the chest shows COPD changes with no acute abnormality. Emergency Department Course and Treatment: Patient was given fentanyl and Zofran for pain. Wounds were cleansed. She is given p.o. potassium. She will be written for p.o. potassium replacement for the next several days. She is to follow-up with her doctor for repeat labs. Treatment Plan: [] Disposition: Discharge Impression: 1. Mechanical fall 2. Facial abrasions 3. Hypokalemia This note was generated with [employer] dictation software. It may contain incorrect words, spelling, and punctuation that were not noted in review of the chart prior to signing ED Disposition - Plan for ED Patient: Disposition: Home or Assisted Living Instructions: ED Mechanical Fall, ED Head Injury Closed, ED Contusion Face, ED Potassium Deficiency Prescriptions: Potassium Chloride [K-Dur] 40 meq PO DAILY #7 days Referrals: Tae Banegas DO [Primary Care Provider] - 1 Week
[2019-03-29 15:44] VITALS: PULSE 88; RESP 18; O2SAT 99
== END 2019-03-29 15:45 | disposition home or self-care (01) ==
PROVIDERS: Emergency Provider Emergency Medicine; Family Provider Student in an Organized Health Care Education/Training Program; PCP Student in an Organized Health Care Education/Training Program
DX: S00.81XA Abrasion of other part of head, initial encounter (principal); W18.09XA Striking against other object with subsequent fall, initial encounter; Y93.01 Activity, walking, marching and hiking; Y92.480 Sidewalk as the place of occurrence of the external cause; Y99.9 Unspecified external cause status; E87.6 Hypokalemia; M54.2 Cervicalgia; M54.9 Dorsalgia, unspecified; I25.10 Atherosclerotic heart disease of native coronary artery without angina pectoris; J44.9 Chronic obstructive pulmonary disease, unspecified; E11.22 Type 2 diabetes mellitus with diabetic chronic kidney disease; N18.9 Chronic kidney disease, unspecified; E11.40 Type 2 diabetes mellitus with diabetic neuropathy, unspecified; K21.9 Gastro-esophageal reflux disease without esophagitis; Z79.4 Long term (current) use of insulin; Z79.891 Long term (current) use of opiate analgesic; Z79.899 Other long term (current) drug therapy; Z87.891 Personal history of nicotine dependence; Z90.5 Acquired absence of kidney
CPT/HCPCS: 36415; 70450; 71250; 72125; 73030; 80048; 85025; 85610; 85730; 96361; 96374; 96375; 99285; J7030; A4216; J2405

== ENCOUNTER 2019-04-02 17:03 | Emergency (ER) | payer MEDICARE, SELFPAY ==
[2019-04-02 17:04] VITALS: BP 119/64; PULSE 74; RESP 16; TEMP 36.4; O2SAT 98; BMI 24.9
--- NOTE | 2019-04-02 17:19 | ED.DCSUM_ITS ---
- ER Visit Summary Date of Service: 04/02/19 Chief Complaint: Nausea and vomiting History of Present Illness: The patient is a 68 F who has a history of cyclic vomiting syndrome comes in today with 2 days of vomiting. She has epigastric abdominal pain which she describes as dull. She states she has vomited multiple times. Her oral Zofran is not working. She denies diarrhea or dysuria. 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 She denies any fevers. Physical Examination: Vital signs reviewed. HEENT exam unremarkable. Heart is regular rate and rhythm without murmurs. Lungs are clear to auscultation. Abdomen is soft with mild epigastric abdominal pain. Extremities reveal no edema. Skin exam normal. Neurologic exam normal. Test Results: Potassium 3.2 and creatinine 1.22 Emergency Department Course and Treatment: The patient is given IV fluids, Ativan Zofran. She feels much better. Her creatinine is around baseline for her. Her potassium is improved but still not back to the normal range. She will continue her potassium supplementation at home. She has Zofran but I will add some Phenergan to help with her symptoms at home. She will follow-up with her PCP Treatment Plan: [] Disposition: Discharge Impression: Cyclical vomiting syndrome This note was generated with [employer] dictation software. It may contain incorrect words, spelling, and punctuation that were not noted in review of the chart prior to signing ED Disposition - Plan for ED Patient: Disposition: Home or Assisted Living Referrals: Tae Banegas DO [Primary Care Provider] -
[2019-04-02] MEDS: 0.9% Normal Saline 1,000 ML 999 ML IV (17:48)
[2019-04-02] MEDS: LORazepam 2 MG/ML Syringe 0.5 MG IV (17:48)
[2019-04-02] MEDS: Ondansetron 4 MG/2 ML Vial IV (17:48)
[2019-04-02 18:02] LABS: Anion Gap 10 (5-15); BUN 14 mg/dL (7-18); BUN/Creat Ratio 11.5 RATIO (10-20); Calcium,Total 8.9 mg/dL (8.5-10.1); Chloride 98 mmol/L (98-107); Creatinine, Serum 1.22 mg/dL (0.55-1.02); EST Glomerular Filtration Rate 47 mL/min (>60); Est Glom Filt Rate - Afr Amer 57 mL/min (>60); Glucose 85 mg/dL (74-106); Potassium 3.2 mmol/L (3.5-5.1); Sodium Level 138 mmol/L (136-145)
--- NOTE | 2019-04-02 18:08 | ED.DEP ---
ED Disposition - Plan for ED Patient: Disposition: Home or Assisted Living Instructions: ED Nausea Vomiting Prescriptions: proMETHazine tablet [Phenergan] 25 mg PO Q6H PRN PRN #20 tab PRN Reason: Nausea Referrals: Tae Banegas DO [Primary Care Provider] -
[2019-04-02 18:20] VITALS: BP 111/82; PULSE 68; RESP 16; O2SAT 98
== END 2019-04-02 18:27 | disposition home or self-care (01) ==
LOC: ED 17:44
PROVIDERS: Emergency Provider Emergency Medicine; Family Provider Student in an Organized Health Care Education/Training Program; PCP Student in an Organized Health Care Education/Training Program
DX: G43.A0 Cyclical vomiting, in migraine, not intractable (principal); E11.9 Type 2 diabetes mellitus without complications; I10 Essential (primary) hypertension; K21.9 Gastro-esophageal reflux disease without esophagitis; Z79.4 Long term (current) use of insulin; Z79.899 Other long term (current) drug therapy
CPT/HCPCS: 80048; 96361; 96374; 96375; 99285; J7030; J2405

== ENCOUNTER 2019-04-09 18:39 | Emergency (ER) | payer MEDICARE, SELFPAY ==
[2019-04-09 18:41] VITALS: BP 103/75; PULSE 60; RESP 18; TEMP 36.4; O2SAT 95; BMI 23.6
--- NOTE | 2019-04-09 18:56 | ED.VIS.GI ---
History of Present Illness Chief Complaint: Nausea/Vomiting Informant: Patient - Abdominal Pain/Flank Pain Onset: Days - 6 Context: Gradual Onset Timing: Intermittent Quality: Aching, Burning Location: Epigastric Current Severity: Moderate Maximum Severity: Moderate Worsened by: Food, - - vomiting Relieved by: Nothing - except while sleeping, is better - Nausea/Vomiting/Emesis GI Symptom: Nausea, Vomiting Quality: Nonbilious. Negative for: Blood streaks, Coffee ground, Hematemesis Severity: Severe - 10+ bouts per day - Diarrhea/Melena/Hematochezia GI Symptom: Negative for: Diarrhea, Melena, Hematochezia Associated Symptoms: Negative for: Dysuria, Frequency, Hematuria Narrative: Patient states these of the same symptoms she has had and been in the ER for many times with her cyclic vomiting syndrome. She still has a gallbladder and has had it studied and has no stones. She had a hysterectomy in the past, no other abdominal surgeries, and that one was not recent. She denies any lightheadedness or near syncopal episodes. States that she gets about 3 hours/day of relief when she is not vomiting, and when she goes to sleep things seem to be okay. Prior similar symptoms: Yes - cyclic vtg syndrome - Past Medical History (1) Atrial flutter Status: Chronic (2) Chronic kidney disease, stage 3 Status: Chronic (3) Gastro-esophageal reflux disease without esophagitis Status: Chronic (4) Hypertension Status: Chronic (5) Mild chronic obstructive pulmonary disease Status: Chronic (6) Peripheral neuropathy Status: Chronic (7) Peripheral vascular disease Status: Chronic (8) Type II diabetes mellitus Status: Chronic Past Medical History - Allergies and Home Meds Allergies/Adverse Reactions: Allergies diphenhydramine HCl [From Benadryl] Adverse Reaction (Verified 04/09/19 18:41) Other metoclopramide [From Reglan] Adverse Reaction (Verified 04/09/19 18:41) Other Primary Care Physician: Tae Banegas DO [Primary Care Provider] - 1-2 Days if not improving Surgical History: coronary bypass surgery, hysterectomy, - - Back surgery. partial nephrectomy for cancer. Smoking Status: Former smoker Drugs: None - Family History Maternal Family History: Family History (Last Reviewed 03/07/19 @ 19:14 by Peter Llamas MD) Mother Cancer Father Colon cancer Heart disease Sister Colon cancer Family History: Reports: No pertinent history Paternal Family History: Family History (Last Reviewed 03/07/19 @ 19:14 by Peter Llamas MD) Mother Cancer Father Colon cancer Heart disease Sister Colon cancer Family History: Reports: No pertinent history Review of Systems General: Reports: Malaise. Denies: Chills, Fever, Sweats Eyes: Denies: Visual changes - bilaterally, Diplopia ENT: Denies: Rhinorrhea, Sore throat Cardiovascular: Denies: Chest pain, Palpitations Respiratory: Denies: Dyspnea, Cough, Dyspnea on exertion Gastrointestinal: Reports: Abdominal pain, Nausea, Vomiting. Denies: Diarrhea, Melena, Hematochezia Genitourinary: Denies: Dysuria, Hematuria, Frequency Musculoskeletal: Denies: Neck pain, Back pain, Extremity Pain Skin: Denies: Rash, Wounds Neurological: Denies: Headache, Weakness, Numbness Physical Exam Vital Signs/Narrative: Vital Signs Temp Pulse Resp BP Pulse Ox 04/09/19 18:41 97.5 F L 60 18 103/75 95 Inital Vital Signs reviewed: Yes General: Well nourished, Well developed, No Acute Distress Head: Normocephalic, Atraumatic Eyes: Perrl, EOMI ENT: Moist mucous membranes, No rhinorrhea Neck: Supple, Nontender Cardiovascular: Regular rate, Regular rhythm, No murmurs Respiratory: No distress, CTA bilaterally, Chest nontender Abdomen: Soft, Nondistended, Normal bowel sounds, Tender - Throughout upper abdomen mostly in epigastrium. Negative for: Guarding, Rebound tenderness, Pulsatile mass Back: Nontender, Normal Inspection. Negative for: CVA tenderness Extremities: Nontender, No edema Skin: Normal color, No rash Neurological: Alert, Oriented x3, Cranial nerves II-XII grossly intact, Normal Strength, Normal Sensation Psychological: Normal affect, Normal Mood Diagnostic/Tx/Re-eval Laboratory Tests 04/09/19 04/09/19 Range/Units 19:19 19:19 WBC 7.3 (4.4-11.0) K/mm3 RBC 4.63 (4.2-5.4) M/mm3 Hgb 14.2 (12.0-15.0) g/dl Hct 40.8 (37-47) % MCV 88.1 (81-99) fL MCH 30.7 (27.0-32.0) pg MCHC 34.8 (32-36) g/gl RDW 13.3 (11.6-14.6) % RDW Differential 42.4 (35.1-43.9) fl Plt Count 233 (150-450) K/mm3 MPV 9.2 (6.2-12.0) fl Immature Gran % (Auto) 0.100 (0.0-0.9) % Neut % (Auto) 67.7 (47-70) % Lymph % (Auto) 23.6 (19-41) % [place] % (Auto) 7.2 (0-10) % Eos % (Auto) 1.0 (0-5) % Baso % (Auto) 0.4 (0-1) % Absolute Neuts (auto) 5.0 (2.0-7.7) X10^3/uL Absolute Lymphs (auto) 1.73 (0.83-4.51) X10^3/ul Total Counted Not Reportable Sodium 137 (136-145) mmol/L Potassium 3.3 L (3.5-5.1) mmol/L Chloride 99 (98-107) mmol/L Carbon Dioxide 31.0 (21.0-32.0) mmol/L Anion Gap 7 (5-15) BUN 11 (7-18) mg/dL Creatinine 1.29 H (0.55-1.02) mg/dL Estim Creat Clear Calc 44.83 ml/min Est GFR (MDRD) Af Amer 53 L (>60) mL/min Est GFR (MDRD) Non-Af 44 L (>60) mL/min BUN/Creatinine Ratio 8.5 L (10-20) RATIO Glucose 133 H (74-106) mg/dL Calcium 8.8 (8.5-10.1) mg/dL Total Bilirubin 1.10 H (0.20-1.00) mg/dL AST 20 (15-37) U/L ALT 27 (13-56) U/L Alkaline Phosphatase 66 (45-117) U/L Total Protein 6.3 L (6.4-8.2) g/dL Albumin 3.5 (3.2-5.0) g/dL Globulin 2.8 (2.2-4.2) g/dL Albumin/Globulin Ratio 1.2 (0.9-2.4) RATIO Lipase 143 (73-393) U/L - Medical Decision Making Patient was treated with IV fluids, Zofran, Ativan which helped her in the past, followed by a GI cocktail. She had some improvement in her discomfort, but was still very nauseated and had some vomiting after the onset she was additionally given Thorazine and a potassium and chloride bolus IV, 10 mEq. Other than the potassium the rest of her labs are unremarkable. She is feeling better and tolerating po fluids. Will send her home with a prescription for some phenergan suppositories. ED Disposition - Plan for ED Patient: Disposition: Home or Assisted Living Diagnosis: Cyclic vomiting syndrome, Acute vomiting, Hypokalemia due to loss of potassium Instructions: ED Nausea Vomiting Prescriptions: proMETHazine suppository [Phenergan Suppository] 25 mg RECTAL Q6H PRN PRN #6 suppos. PRN Reason: Nausea Referrals: Tae Banegas DO [Primary Care Provider] - 1-2 Days if not improving
[2019-04-09 19:12] VITALS: PULSE 86; RESP 18; O2SAT 96
[2019-04-09] MEDS: Mag Hydrox/Al Hydrox/Simeth 30 ML UDC PO (19:13)
[2019-04-09] MEDS: Ondansetron 4 MG/2 ML Vial IV (19:18)
[2019-04-09] MEDS: LORazepam 2 MG/ML Syringe 1 MG IV (19:18)
[2019-04-09] MEDS: 0.9% Normal Saline 1,000 ML 999 ML IV (19:19)
[2019-04-09 19:51] LABS: Absolute Lymphocyte Count 1.73 X10^3/ul (0.83-4.51); Basophil# 0.03 X10^3/uL; Basophil% 0.4 % (0-1); Eosinophil# 0.07 X10^3/uL; Hematocrit 40.8 % (37-47); Hemoglobin 14.2 g/dl (12.0-15.0); Lymphocyte # 1.73 X10^3/ul (4.0); Lymphocyte % 23.6 % (19-41); Mean Corp Hgb Conc 34.8 g/gl (32-36); Mean Corpuscular Hgb 30.7 pg (27.0-32.0); Mean Corpuscular Volume 88.1 fL (81-99); Mean Platelet Vol. 9.2 fl (6.2-12.0); Monocyte# 0.53 X10^3/uL; Monocyte% 7.2 % (0-10); Neutrophil # 4.95 X10^3/uL (2.7-7.7); Neutrophil % 67.7 % (47-70); POSITIVE COUNT NO; POSITIVE DIFFERENTIAL NO; POSITIVE MORPHOLOGY NO; Platelet Count 233 K/mm3 (150-450); RBC Distribution Width CV 13.3 % (11.6-14.6); RBC Distribution Width SD 42.4 fl (35.1-43.9); Red Blood Count 4.63 M/mm3 (4.2-5.4); White Blood Count 7.3 K/mm3 (4.4-11.0)
[2019-04-09 20:01] LABS: ALB/GLOB Ratio 1.2 RATIO (0.9-2.4); AST(SGOT) 20 U/L (15-37); Alanine Aminotransfer ALT/SGPT 27 U/L (13-56); Albumin, Serum 3.5 g/dL (3.2-5.0); Alkaline Phosphatase 66 U/L (45-117); Anion Gap 7 (5-15); BUN 11 mg/dL (7-18); BUN/Creat Ratio 8.5 RATIO (10-20); Calcium,Total 8.8 mg/dL (8.5-10.1); Chloride 99 mmol/L (98-107); Creatinine, Serum 1.29 mg/dL (0.55-1.02); EST Glomerular Filtration Rate 44 mL/min (>60); Est Glom Filt Rate - Afr Amer 53 mL/min (>60); Estimated Creatinine Clearance 44.83 ml/min; Globulin 2.8 g/dL (2.2-4.2); Glucose 133 mg/dL (74-106); Lipase 143 U/L (73-393); Potassium 3.3 mmol/L (3.5-5.1); Protein, Total 6.3 g/dL (6.4-8.2); Sodium Level 137 mmol/L (136-145)
[2019-04-09] MEDS: ChlorproMAZINE 50 MG/2 ML Ampul 25 MG IV (21:41)
[2019-04-09] MEDS: Potassium Chloride 10mEq/100mL 10 MEQ/100 ML IV.SOLN. 100 MEQ IV BOLUS (21:41)
[2019-04-09 22:40] VITALS: BP 111/70; PULSE 82; RESP 16; O2SAT 95
== END 2019-04-09 23:06 | disposition home or self-care (01) ==
PROVIDERS: Emergency Provider Emergency Medicine; Family Provider Student in an Organized Health Care Education/Training Program; PCP Student in an Organized Health Care Education/Training Program
DX: G43.A0 Cyclical vomiting, in migraine, not intractable (principal); E87.6 Hypokalemia; K92.1 Melena; E11.22 Type 2 diabetes mellitus with diabetic chronic kidney disease; I12.9 Hypertensive chronic kidney disease with stage 1 through stage 4 chronic kidney disease, or unspecified chronic kidney disease; N18.3 Chronic kidney disease, stage 3 (moderate); I48.92 Unspecified atrial flutter; E11.40 Type 2 diabetes mellitus with diabetic neuropathy, unspecified; E11.51 Type 2 diabetes mellitus with diabetic peripheral angiopathy without gangrene; J44.9 Chronic obstructive pulmonary disease, unspecified; K21.9 Gastro-esophageal reflux disease without esophagitis; Z79.4 Long term (current) use of insulin; Z79.899 Other long term (current) drug therapy; Z88.8 Allergy status to other drugs, medicaments and biological substances; Z87.891 Personal history of nicotine dependence; Z90.5 Acquired absence of kidney; Z90.710 Acquired absence of both cervix and uterus; Z95.1 Presence of aortocoronary bypass graft
CPT/HCPCS: 80053; 83690; 85025; 96361; 96365; 96366; 96375; 99283; J7030; J2405

== ENCOUNTER 2019-04-20 15:42 | Emergency (ER) | payer MEDICARE, SELFPAY ==
[2019-04-20 15:42] VITALS: BP 128/72; PULSE 92; RESP 16; TEMP 36.6; O2SAT 97; BMI 23.1
[2019-04-20] MEDS: Ondansetron 4 MG/2 ML Vial IV (16:14)
[2019-04-20] MEDS: LORazepam 2 MG/ML Syringe 0.5 MG IV (16:15)
--- NOTE | 2019-04-20 16:20 | ED.DCSUM_ITS ---
History of Present Illness Chief Complaint: Nausea/Vomiting Informant: Patient Onset: Days - Onset 2 days ago Context: Sudden Onset Timing: Continuous Quality: I have cyclic vomiting Location: Not applicable Current Severity: Severe Maximum Severity: Severe Worsened by: Attempt to eat or drink anything Relieved by: Nothing Associated Symptoms: Thirst, dry mouth and orthostatic symptoms. Decreased urine output Narrative: Patient is a 68-year-old woman with history of cyclic vomiting. She presents with vomiting for the past 2 days. She states onset started 2 days ago. She vomited several times. Yesterday she believes she vomited 30 times. She has vomited numerous times today. She reports thirst, dry mouth and orthostatic symptoms. She denies cardiac restaurant symptoms. She denies diarrhea, melena or hematochezia. She states she had a normal bowel movement yesterday and stool was brown. She denies blood in her urine. She is on no anticoagulant. She denies bruising easily. She denies headache, visual, ocular auditory symptoms. Prior similar symptoms: Yes Recent Illness/Hospitalization: Yes - Past Medical History (1) Atrial flutter Status: Chronic (2) Chronic kidney disease, stage 3 Status: Chronic (3) Coronary artery disease Status: Chronic Comment: cabg 1992 (4) Gastro-esophageal reflux disease without esophagitis Status: Chronic (5) History of partial nephrectomy Status: Chronic Comment: for malignant tumor 2014 [facility] (6) Hypertension Status: Chronic (7) Mild chronic obstructive pulmonary disease Status: Chronic (8) Peripheral neuropathy Status: Chronic (9) Type II diabetes mellitus Status: Chronic Past Medical History - Allergies and Home Meds Allergies/Adverse Reactions: Allergies diphenhydramine HCl [From Benadryl] Adverse Reaction (Verified 04/20/19 15:44) Other metoclopramide [From Reglan] Adverse Reaction (Verified 04/20/19 15:44) Other Primary Care Physician: Tae Banegas DO [Primary Care Provider] - Surgical History: coronary bypass surgery, hysterectomy, - - Back surgery. partial nephrectomy for cancer. Lives: Alone Smoking Status: Former smoker Alcohol: None Drugs: None - Family History Maternal Family History: Family History (Last Reviewed 03/07/19 @ 19:14 by Peter Llamas MD) Mother Cancer Father Colon cancer Heart disease Sister Colon cancer Family History: Reports: No pertinent history Paternal Family History: Family History (Last Reviewed 03/07/19 @ 19:14 by Peter Llamas MD) Mother Cancer Father Colon cancer Heart disease Sister Colon cancer Family History: Reports: No pertinent history Review of Systems General: Denies: Chills, Fever, Malaise, Subjective, Sweats, Weight loss, - Eyes: Denies: Visual changes - bilaterally, Blurred Vision - bilaterally ENT: Denies: Rhinorrhea, Sore throat Cardiovascular: Reports: Heart racing. Denies: Chest pain, Palpitations Respiratory: Denies: Dyspnea, Cough, Dyspnea on exertion Gastrointestinal: Reports: Abdominal pain, Nausea, Vomiting, Hematochezia - History of hemorrhoids. Denies: Diarrhea, Constipation, Melena Genitourinary: Denies: Dysuria, Hematuria, Frequency Musculoskeletal: Denies: Myalgias, Arthralgias, Neck pain, Back pain, Swelling, Extremity Pain, -, - Skin: Denies: Rash, Wounds Neurological: Reports: Weakness. Denies: Parasthesia, Numbness Psych: Reports: Depression Endocrine: Denies: Polyuria, Polydipsia Hematologic: Denies: Easy bruising, Easy bleeding Physical Exam Vital Signs/Narrative: Vital Signs Temp Pulse Resp BP Pulse Ox 04/20/19 15:42 97.9 F 92 16 128/72 H 97 Inital Vital Signs reviewed: Yes General: Well nourished, Well developed, No Acute Distress Head: Normocephalic, Atraumatic Eyes: Perrl, EOMI. Negative for: Pale conjunctiva, Scleral icterus, - ENT: No rhinorrhea, TM's clear, Dry mucous membranes Neck: Supple, Nontender, No lymphadenopathy, No JVD, - Cardiovascular: Regular rate, Regular rhythm, No murmurs, Normal S1, Normal S2 Respiratory: No distress, CTA bilaterally, Chest nontender Abdomen: Soft, Nondistended, No masses, Tender, Hypoactive bowel sounds. Negative for: Nontender, Normal bowel sounds, Guarding, Rebound tenderness, Hepatomegaly, Splenomegaly, Mass, Pulsatile mass Back: Nontender, Normal Inspection. Negative for: CVA tenderness Extremities: Nontender, No edema Skin: Normal color, No rash Neurological: Alert, Oriented x3, Cranial nerves II-XII grossly intact, Normal Strength, Normal Sensation Psychological: Depressed Diagnostic/Tx/Re-eval - Medical Decision Making IV was established. Cyclic vomiting order set was initiated. Because patient has history of renal disease diabetes a basic metabolic panel was obtained to assess electrodes, CO2 anion gap and renal function. Patient did pass p.o. challenge. She reports she feels better. She will be discharged home. ED Disposition - Plan for ED Patient: Diagnosis: Cyclical vomiting with nausea, Moderate dehydration, Mild renal insufficiency Instructions: When Your Child Has Cyclic Vomiting Syndrome ([facility]) Referrals: Tae Banegas, [Primary Care Provider] - As Needed
[2019-04-20 16:46] LABS: Anion Gap 11 (5-15); BUN 14 mg/dL (7-18); BUN/Creat Ratio 11.7 RATIO (10-20); Calcium,Total 9.4 mg/dL (8.5-10.1); Chloride 100 mmol/L (98-107); EST Glomerular Filtration Rate 48 mL/min (>60); Est Glom Filt Rate - Afr Amer 58 mL/min (>60); Estimated Creatinine Clearance 48.19 ml/min; Glucose 120 mg/dL (74-106); Potassium 3.6 mmol/L (3.5-5.1); Sodium Level 138 mmol/L (136-145)
[2019-04-20 18:10] VITALS: RESP 18
== END 2019-04-20 18:55 | disposition home or self-care (01) ==
LOC: ED 16:12
PROVIDERS: Emergency Provider Emergency Medicine; Family Provider Student in an Organized Health Care Education/Training Program; PCP Student in an Organized Health Care Education/Training Program
DX: G43.A0 Cyclical vomiting, in migraine, not intractable (principal); E86.0 Dehydration; E11.22 Type 2 diabetes mellitus with diabetic chronic kidney disease; I12.9 Hypertensive chronic kidney disease with stage 1 through stage 4 chronic kidney disease, or unspecified chronic kidney disease; N18.3 Chronic kidney disease, stage 3 (moderate); J44.9 Chronic obstructive pulmonary disease, unspecified; I48.92 Unspecified atrial flutter; I25.10 Atherosclerotic heart disease of native coronary artery without angina pectoris; E11.42 Type 2 diabetes mellitus with diabetic polyneuropathy; K21.9 Gastro-esophageal reflux disease without esophagitis; Z79.4 Long term (current) use of insulin; Z79.899 Other long term (current) drug therapy; Z95.1 Presence of aortocoronary bypass graft; Z90.5 Acquired absence of kidney; Z87.891 Personal history of nicotine dependence
CPT/HCPCS: 80048; 96365; 96375; 99283; J7050; A4216; J2405; J3490

== ENCOUNTER 2019-05-29 11:23 | Emergency (ER) | payer MEDICARE, SELFPAY ==
[2019-05-29 11:25] VITALS: BP 123/77; PULSE 114; RESP 16; TEMP 36.9; O2SAT 96; BMI 23.8
--- NOTE | 2019-05-29 11:38 | ED.VIS.GEN ---
History of Present Illness Chief Complaint: Nausea/Vomiting Informant: Patient Onset: Yesterday Timing: Continuous Current Severity: Moderate Maximum Severity: Moderate Narrative: She presents with chronic recurrent nausea and vomiting and epigastric pain. She has been told she has cyclic vomiting syndrome. She denies any new symptoms, last episode that was the same that needed ED treatment was just a few weeks ago. She has no back pain or radiation to her back she has no lower abdominal pain. He denies any chest pain shortness of breath. Past Medical History - Allergies and Home Meds Allergies/Adverse Reactions: Allergies diphenhydramine HCl [From Benadryl] Adverse Reaction (Verified 05/29/19 11:25) Other metoclopramide [From Reglan] Adverse Reaction (Verified 05/29/19 11:25) Other Primary Care Physician: Tae Banegas DO [Primary Care Provider] - Past Medical History: - - Coronary artery disease, diabetes, cyclic vomiting Surgical History: coronary bypass surgery, hysterectomy, - - Back surgery. partial nephrectomy for cancer. Smoking Status: Former smoker - Family History Maternal Family History: Family History (Last Reviewed 03/07/19 @ 19:14 by Peter Llamas MD) Mother Cancer Father Colon cancer Heart disease Sister Colon cancer Family History: Reports: No pertinent history Paternal Family History: Family History (Last Reviewed 03/07/19 @ 19:14 by Peter Llamas MD) Mother Cancer Father Colon cancer Heart disease Sister Colon cancer Family History: Reports: No pertinent history Review of Systems All systems negative except as indicated General: Denies: Chills, Fever, Sweats Eyes: Denies: Visual changes - bilaterally, Diplopia ENT: Denies: Rhinorrhea, Sore throat Cardiovascular: Denies: Chest pain, Palpitations Respiratory: Denies: Dyspnea, Cough, Dyspnea on exertion Gastrointestinal: Reports: Abdominal pain, Nausea, Vomiting. Denies: Diarrhea, Melena, Hematochezia Genitourinary: Denies: Dysuria, Hematuria, Frequency Musculoskeletal: Denies: Back pain, Extremity Pain Skin: Denies: Rash, Wounds Neurological: Denies: Headache, Weakness, Numbness Hematologic: Denies: Easy bruising Physical Exam Vital Signs/Narrative: Vital Signs Temp Pulse Resp BP Pulse Ox 05/29/19 11:25 98.4 F 114 H 16 123/77 H 96 General: Well nourished, Well developed, - - Appears in some distress Head: Normocephalic Eyes: Perrl ENT: Moist mucous membranes Neck: Supple Cardiovascular: Regular rate, Regular rhythm Respiratory: No distress Abdomen: Soft - There is epigastric tenderness without any guarding or rebound. No lower abdominal pain. Back: Nontender, Normal Inspection. Negative for: CVA tenderness Extremities: Nontender Skin: Normal color Neurological: Alert Psychological: Normal affect Diagnostic/Tx/Re-eval - Medical Decision Making Patient received IV fluids Zofran p.o. Valium and Haldol her symptoms significantly improved her work-up is negative. This is chronic recurrent cyclic vomiting. She can be safely discharged. ED Disposition - Plan for ED Patient: Disposition: LEFT WITHOUT BEING SEEN Diagnosis: Cyclic vomiting syndrome Instructions: VOMITING (8y-Adult) Referrals: Tae Banegas DO [Primary Care Provider] - 3-5 Days
[2019-05-29] MEDS: Haloperidol Lactate 5 MG/ML Vial 2 MG IV (11:58)
[2019-05-29] MEDS: 0.9% Normal Saline 1,000 ML 1000 ML IV (11:58)
[2019-05-29] MEDS: Ondansetron 4 MG/2 ML Vial IV (11:59)
[2019-05-29 12:04] LABS: Absolute Lymphocyte Count 1.71 X10^3/ul (0.83-4.51); Absolute Neutrophil Count 7.8 X10^3/uL (2.0-7.7); Basophil# 0.02 X10^3/uL; Basophil% 0.2 % (0-1); Eosinophil# 0.01 X10^3/uL; Eosinophils% 0.1 % (0-5); Hematocrit 44.1 % (37-47); Hemoglobin 15.1 g/dl (12.0-15.0); Lymphocyte # 1.71 X10^3/ul (4.0); Lymphocyte % 16.7 % (19-41); Mean Corp Hgb Conc 34.2 g/gl (32-36); Mean Corpuscular Hgb 30.6 pg (27.0-32.0); Mean Corpuscular Volume 89.3 fL (81-99); Mean Platelet Vol. 9.6 fl (6.2-12.0); Monocyte# 0.65 X10^3/uL; Monocyte% 6.4 % (0-10); Neutrophil # 7.81 X10^3/uL (2.7-7.7); Neutrophil % 76.4 % (47-70); POSITIVE COUNT NO; POSITIVE DIFFERENTIAL NO; POSITIVE MORPHOLOGY NO; Platelet Count 262 K/mm3 (150-450); RBC Distribution Width CV 12.6 % (11.6-14.6); RBC Distribution Width SD 40.7 fl (35.1-43.9); Red Blood Count 4.94 M/mm3 (4.2-5.4); White Blood Count 10.2 K/mm3 (4.4-11.0)
[2019-05-29 12:16] LABS: BUN 22 mg/dL (7-18); Creatinine, Serum 1.09 mg/dL (0.55-1.02); Estimated Creatinine Clearance 53.06 ml/min; Glucose 164 mg/dL (74-106)
[2019-05-29 12:17] LABS: ALB/GLOB Ratio 1.2 RATIO (0.9-2.4); AST(SGOT) 24 U/L (15-37); Alanine Aminotransfer ALT/SGPT 21 U/L (13-56); Alkaline Phosphatase 97 U/L (45-117); Anion Gap 7 (5-15); BUN/Creat Ratio 20.2 RATIO (10-20); Calcium,Total 9.1 mg/dL (8.5-10.1); Chloride 100 mmol/L (98-107); EST Glomerular Filtration Rate 53 mL/min (>60); Est Glom Filt Rate - Afr Amer 64 mL/min (>60); Globulin 3.4 g/dL (2.2-4.2); Lipase 107 U/L (73-393); Potassium 3.3 mmol/L (3.5-5.1); Protein, Total 7.4 g/dL (6.4-8.2); Sodium Level 134 mmol/L (136-145)
[2019-05-29] MEDS: diazePAM 2 MG Tablet PO (12:18)
[2019-05-29 12:45] VITALS: BP 121/81; PULSE 61; RESP 10; O2SAT 97
== END 2019-05-29 12:46 | disposition home or self-care (01) ==
PROVIDERS: Emergency Provider Emergency Medicine; Family Provider Student in an Organized Health Care Education/Training Program; PCP Student in an Organized Health Care Education/Training Program
DX: G43.A0 Cyclical vomiting, in migraine, not intractable (principal); I25.10 Atherosclerotic heart disease of native coronary artery without angina pectoris; E11.9 Type 2 diabetes mellitus without complications; Z95.1 Presence of aortocoronary bypass graft; Z79.4 Long term (current) use of insulin; Z79.899 Other long term (current) drug therapy; Z87.891 Personal history of nicotine dependence
CPT/HCPCS: 80053; 83690; 85025; 96361; 96374; 96375; 99284; J7030; J2405

== ENCOUNTER 2019-06-22 14:55 | Emergency (ER) | payer MEDICARE, SELFPAY ==
[2019-06-22 14:57] VITALS: BP 135/92; PULSE 88; RESP 18; TEMP 36.8; O2SAT 97; BMI 24.1
--- NOTE | 2019-06-22 15:18 | ED.DCSUM_ITS ---
History of Present Illness Chief Complaint: Nausea/Vomiting Informant: Patient Onset: Days - Onset 3 days ago Context: Sudden Onset Timing: Intermittent, Waxes and wanes Quality: Nausea vomiting and abdominal pain Location: Generalized Current Severity: Mild Maximum Severity: Moderate Worsened by: Vomiting Relieved by: Nothing Associated Symptoms: Thirst, dry mouth and orthostatic symptoms Narrative: Patient is a 69-year-old woman with a history of cyclic vomiting who presents with nausea vomiting started 3 days ago. Complains now of persistent generalized abdominal pain. She states she has vomited numerous times. She claims of thirst, dry mouth and lightheadedness. She denies hematemesis, melena hematochezia. She does report decreased urination. She denies urgency or hematuria. She denies back or flank pain. She denies respiratory cardiac symptoms. Prior similar symptoms: Yes Recent Illness/Hospitalization: Yes - Seen April 20 for cyclic vomiting - Past Medical History (1) Atrial flutter Status: Chronic (2) Chronic kidney disease, stage 3 Status: Chronic (3) Coronary artery disease Status: Chronic Comment: cabg 1992 (4) Gastro-esophageal reflux disease without esophagitis Status: Chronic (5) History of partial nephrectomy Status: Chronic Comment: for malignant tumor 2014 [facility] (6) Hypertension Status: Chronic (7) Peripheral neuropathy Status: Chronic (8) Peripheral vascular disease Status: Chronic (9) Status post coronary artery bypass graft Status: Chronic Past Medical History - Allergies and Home Meds Allergies/Adverse Reactions: Allergies diphenhydramine HCl [From Benadryl] Adverse Reaction (Verified 06/22/19 14:57) Other metoclopramide [From Reglan] Adverse Reaction (Verified 06/22/19 14:57) Other Primary Care Physician: Tea Banegas DO [Primary Care Provider] - Prior records reviewed: Yes Surgical History: coronary bypass surgery, hysterectomy, - - Back surgery. partial nephrectomy for cancer. Lives: Alone Smoking Status: Former smoker Alcohol: None Drugs: None - Family History Maternal Family History: Family History (Last Reviewed 03/07/19 @ 19:14 by Peter Llamas MD) Mother Cancer Father Colon cancer Heart disease Sister Colon cancer Family History: Reports: No pertinent history Paternal Family History: Family History (Last Reviewed 03/07/19 @ 19:14 by Peter Llamas MD) Mother Cancer Father Colon cancer Heart disease Sister Colon cancer Family History: Reports: No pertinent history Review of Systems General: Denies: Chills, Fever, Sweats Eyes: Denies: Visual changes - bilaterally, Blurred Vision - bilaterally, Diplopia ENT: Denies: Bilateral ear pain, Rhinorrhea, Sore throat Cardiovascular: Denies: Chest pain, Palpitations Respiratory: Denies: Dyspnea, Cough, Dyspnea on exertion Gastrointestinal: Reports: Abdominal pain, Nausea, Vomiting Genitourinary: Denies: Dysuria, Hematuria, Frequency Musculoskeletal: Denies: Back pain, Extremity Pain Skin: Denies: Rash, Wounds Neurological: Denies: Headache, Weakness, Numbness Psych: Reports: Depression Endocrine: Denies: Polyuria, Polydipsia Hematologic: Denies: Easy bruising, Easy bleeding Physical Exam Vital Signs/Narrative: Vital Signs Temp Pulse Resp BP Pulse Ox 06/22/19 14:57 98.3 F 88 18 135/92 H 97 General: Well nourished, Well developed, No Acute Distress Head: Normocephalic, Atraumatic Eyes: Perrl, EOMI. Negative for: Pale conjunctiva, Scleral icterus ENT: Moist mucous membranes, No rhinorrhea Neck: Supple, Nontender Cardiovascular: Regular rate, Regular rhythm, No murmurs, Normal S1, Normal S2 Respiratory: No distress, CTA bilaterally, Chest nontender Abdomen: Soft, Nondistended, No masses, Tender, Hypoactive bowel sounds. Negative for: Normal bowel sounds, Guarding, Rebound tenderness, Ventral hernia, Inguinal hernia Back: Nontender, Normal Inspection. Negative for: CVA tenderness, Spinal tenderness Extremities: Nontender, No edema Skin: Normal color, No rash, No Trauma. Negative for: Cyanosis, Diaphoresis, Jaundice Neurological: Alert, Oriented x3, Cranial nerves II-XII grossly intact, Normal Strength, Normal Sensation Psychological: Depressed Diagnostic/Tx/Re-eval Laboratory Results 06/22/19 16:18 Sodium 137 Potassium 3.9 Chloride 98 Carbon Dioxide 29.0 Anion Gap 10 BUN 23 H Creatinine 1.29 H Estim Creat Clear Calc 44.23 Est GFR (MDRD) Af Amer 53 L Est GFR (MDRD) Non-Af 44 L BUN/Creatinine Ratio 17.8 Glucose 183 H Calcium 9.0 Creatinine is elevated. Creatinine is at baseline. - Medical Decision Making In light of all of her medical problems reported amount of vomiting and clinically patient is dehydrated we will obtain basic metabolic panel to assess electrolytes and renal function. Cyclic vomiting order set was initiated. Will reassess in 1 to 2 hours. Patient was reassessed at 1715. She stated she feels better. Patient passed p.o. challenge. When nurse assessed her at 1735 she states she is nausea. Nurse commented that she was looking through her purse while she complained of feeling nauseous. If there is no vomiting by 1800 plan is to discharge to home. Patient has not vomited and will be discharged to home ED Disposition - Plan for ED Patient: Disposition: Home or Assisted Living Diagnosis: Cyclical vomiting, not intractable Instructions: VOMITING (8y-Adult) Referrals: Tae Banegas, [Primary Care Provider] - As Needed
[2019-06-22] MEDS: Ondansetron 4 MG/2 ML Vial IV (16:15)
[2019-06-22] MEDS: LORazepam 2 MG/ML Syringe 0.5 MG IV (16:15)
[2019-06-22 16:55] LABS: Anion Gap 10 (5-15); BUN 23 mg/dL (7-18); BUN/Creat Ratio 17.8 RATIO (10-20); Chloride 98 mmol/L (98-107); Creatinine, Serum 1.29 mg/dL (0.55-1.02); EST Glomerular Filtration Rate 44 mL/min (>60); Est Glom Filt Rate - Afr Amer 53 mL/min (>60); Estimated Creatinine Clearance 44.23 ml/min; Glucose 183 mg/dL (74-106); Potassium 3.9 mmol/L (3.5-5.1); Sodium Level 137 mmol/L (136-145)
--- NOTE | 2019-06-22 17:41 | ED.RN ---
PT IS RESTING COMFORTABLY GOING THHE THE ARTICLES IN HER PURSE. NO SIGNS OF N/V OR DISTRESS NOTED. PHYSICIAN AWARE
[2019-06-22 18:06] VITALS: BP 126/60; PULSE 76; RESP 16
== END 2019-06-22 18:07 | disposition home or self-care (01) ==
PROVIDERS: Emergency Provider Emergency Medicine; Family Provider Student in an Organized Health Care Education/Training Program; PCP Student in an Organized Health Care Education/Training Program
DX: G43.A0 Cyclical vomiting, in migraine, not intractable (principal); E86.0 Dehydration; R10.84 Generalized abdominal pain; I12.9 Hypertensive chronic kidney disease with stage 1 through stage 4 chronic kidney disease, or unspecified chronic kidney disease; N18.3 Chronic kidney disease, stage 3 (moderate); I48.92 Unspecified atrial flutter; I25.10 Atherosclerotic heart disease of native coronary artery without angina pectoris; I73.9 Peripheral vascular disease, unspecified; G62.9 Polyneuropathy, unspecified; K21.9 Gastro-esophageal reflux disease without esophagitis; Z79.899 Other long term (current) drug therapy; Z88.8 Allergy status to other drugs, medicaments and biological substances; Z87.891 Personal history of nicotine dependence; Z90.5 Acquired absence of kidney; Z90.710 Acquired absence of both cervix and uterus; Z95.1 Presence of aortocoronary bypass graft
CPT/HCPCS: 80048; 96374; 96375; 99282; J7050; A4216; J2405; J3490

== ENCOUNTER 2019-06-24 19:00 | Emergency (ER) | payer MEDICARE, SELFPAY ==
[2019-06-24 19:01] VITALS: BP 137/72; PULSE 117; RESP 16; TEMP 36.8; O2SAT 98; BMI 23.8
== END 2019-06-24 19:55 | disposition left against medical advice (07) ==
LOC: ED 20:11
PROVIDERS: Emergency Provider Emergency Medicine; Family Provider Student in an Organized Health Care Education/Training Program; PCP Student in an Organized Health Care Education/Training Program
DX: R11.2 Nausea with vomiting, unspecified (principal); Z53.21 Procedure and treatment not carried out due to patient leaving prior to being seen by health care provider

== ENCOUNTER 2019-06-25 11:56 | Emergency (ER) | payer MEDICARE, SELFPAY ==
[2019-06-24 19:01] VITALS: BMI 23.8
[2019-06-25 11:56] VITALS: BP 134/75; PULSE 103; RESP 18; TEMP 36.6; O2SAT 96; BMI 25.1
--- NOTE | 2019-06-25 12:23 | ED.VIS.GEN ---
History of Present Illness Informant: Patient Narrative: 69-year-old female with past medical history of cyclic vomiting syndrome presents with vomiting. Patient states that she was seen here 3 days ago for similar complaints. States that at that time she had a vomiting controlled but when she returned home she had persistent vomiting. Describes it as nonbilious and nonbloody. States that she has Zofran at home which is not working for her vomiting. 2 generalized abdominal cramping. States is consistent with her previous issues with vomiting. States she has had approximately 20 episodes per day. Denies any fever, chills, chest pain, shortness of breath, urinary symptoms. Most recent colonoscopy was less than 6 months ago and was normal per patient. 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 <René Hooker - Last Filed: 06/25/19 15:58> <Mimi Moody - Last Filed: 06/25/19 17:58> Chief Complaint: Nausea/Vomiting Past Medical History Prior records reviewed: Yes Past Medical History: - - Click vomiting syndrome Surgical History: coronary bypass surgery, hysterectomy, - - Back surgery. partial nephrectomy for cancer. Smoking Status: Unknown if ever smoked - Family History Maternal Family History: Family History (Last Reviewed 03/07/19 @ 19:14 by Peter Llamas MD) Mother Cancer Father Colon cancer Heart disease Sister Colon cancer Family History: Reports: No pertinent history Paternal Family History: Family History (Last Reviewed 03/07/19 @ 19:14 by Peter Llamas MD) Mother Cancer Father Colon cancer Heart disease Sister Colon cancer Family History: Reports: No pertinent history <René Hooker - Last Filed: 06/25/19 15:58> - Family History Maternal Family History: Family History (Last Reviewed 03/07/19 @ 19:14 by Peter Llamas MD) Mother Cancer Father Colon cancer Heart disease Sister Colon cancer Paternal Family History: Family History (Last Reviewed 03/07/19 @ 19:14 by Peter Llamas MD) Mother Cancer Father Colon cancer Heart disease Sister Colon cancer <Mimi Moody - Last Filed: 06/25/19 17:58> - Allergies and Home Meds Allergies/Adverse Reactions: Allergies diphenhydramine HCl [From Benadryl] Adverse Reaction (Verified 06/25/19 11:58) Other metoclopramide [From Reglan] Adverse Reaction (Verified 06/25/19 11:58) Other Primary Care Physician: Tae Banegas DO [Primary Care Provider] - Review of Systems General: Denies: Chills, Fever, Sweats Eyes: Denies: Visual changes - bilaterally, Diplopia ENT: Denies: Rhinorrhea, Sore throat Cardiovascular: Denies: Chest pain, Palpitations Respiratory: Denies: Dyspnea, Cough, Dyspnea on exertion Gastrointestinal: Reports: Abdominal pain, Nausea, Vomiting. Denies: Diarrhea, Melena, Hematochezia Genitourinary: Denies: Dysuria, Hematuria, Frequency Musculoskeletal: Denies: Back pain, Extremity Pain Skin: Denies: Rash, Wounds Neurological: Denies: Headache, Weakness, Numbness <René Hooker - Last Filed: 06/25/19 15:58> Physical Exam Vital Signs/Narrative: Vital Signs Temp Pulse Resp BP Pulse Ox 06/25/19 11:56 97.8 F 103 H 18 134/75 H 96 Inital Vital Signs reviewed: Yes General: Well nourished, Well developed, No Acute Distress Head: Normocephalic, Atraumatic Eyes: Perrl, EOMI ENT: Moist mucous membranes, No rhinorrhea Neck: Supple, Nontender Cardiovascular: Regular rate, Regular rhythm, No murmurs Respiratory: No distress, CTA bilaterally, Chest nontender Abdomen: Soft, Nontender, Nondistended, Normal bowel sounds Back: Nontender, Normal Inspection Extremities: Nontender, No edema Skin: Normal color, No rash Neurological: Alert, Oriented x3, Cranial nerves II-XII grossly intact, Normal Strength, Normal Sensation Psychological: Normal affect, Normal Mood <René Hooker - Last Filed: 06/25/19 15:58> Vital Signs/Narrative: Vital Signs Pulse Resp BP Pulse Ox 06/25/19 16:28 86 17 165/98 H 99 06/25/19 15:13 84 18 151/84 H 99 <Mimi Moody - Last Filed: 06/25/19 17:58> Diagnostic/Tx/Re-eval - Medical Decision Making She appears well nontoxic. Vital signs within normal limits. Benign abdominal exam. Patient was given Zofran as well as fluids. Patient was also given been given Protonix as well as Bentyl. Patient had no relief of her symptoms at this time. Patient was offered Toradol which she refused. She was given Phenergan which did help mildly with her nausea. It was discussed with the patient that narcotic pain medication would be not beneficial to her current symptoms. She will be discharged home with Phenergan and asked to follow-up with her primary care provider. On reevaluation at 1530 patient continues to have a benign abdomen. Discharged home in stable condition. <René Hooker - Last Filed: 06/25/19 15:58> - Medical Decision Making Patient seen with Dr. Hooker. Patient reports history of cyclic nausea and vomiting. She was seen here in the ER couple days ago. She is treated with Zofran, Bentyl, and Protonix. Patient refused Toradol. Patient's laboratory evaluation is unremarkable with no significant signs of dehydration. She has not vomited in the emergency room. She is discharged with Phenergan. <Mimi Moody - Last Filed: 06/25/19 17:58> ED Disposition <René Hooker - Last Filed: 06/25/19 15:58> <Mimi Moody - Last Filed: 06/25/19 17:58> - Plan for ED Patient: Disposition: Home or Assisted Living Diagnosis: Cyclic vomiting syndrome Instructions: VOMITING (8y-Adult) Prescriptions: Promethazine HCl [Phenergan] 12.5 mg W[place] Q8H PRN PRN #10 supp.rect PRN Reason: Vomiting Prescription Printed Referrals: Tae Banegas DO [Primary Care Provider] -
[2019-06-25 13:03] LABS: Absolute Lymphocyte Count 1.82 X10^3/uL (0.83-4.51); Absolute Neutrophil Count 5.7 X10^3/uL (2.0-7.7); Basophil# 0.02 X10^3/uL; Basophil% 0.2 % (0-1); Eosinophil# 0.06 X10^3/uL; Eosinophils% 0.7 % (0-5); Hematocrit 42.9 % (37-47); Lymphocyte # 1.82 X10^3/ul (4.0); Lymphocyte % 22.6 % (19-41); Mean Corpuscular Hgb 32.4 pg (27.0-32.0); Mean Corpuscular Volume 92.7 fL (81-99); Mean Platelet Vol. 9.3 fl (6.2-12.0); Monocyte# 0.48 X10^3/uL; NRBC Flagged by Analyzer 0 % (0-5); Neutrophil # 5.65 X10^3/uL (2.7-7.7); Neutrophil % 70.1 % (47-70); Platelet Count 209 K/mm3 (150-450); RBC Distribution Width CV 11.9 % (11.6-14.6); RBC Distribution Width SD 40.9 fl (35.1-43.9); Red Blood Count 4.63 M/mm3 (4.2-5.4); White Blood Count 8.1 K/mm3 (4.4-11.0)
[2019-06-25] MEDS: 0.9% Normal Saline 1,000 ML 1000 ML IV (13:16)
[2019-06-25] MEDS: Ondansetron 4 MG/2 ML Vial IV (13:17)
[2019-06-25] MEDS: Dicyclomine 20 MG/2 ML Vial IM (13:18)
[2019-06-25 13:21] LABS: ALB/GLOB Ratio 1.3 RATIO (0.9-2.4); AST(SGOT) 24 U/L (15-37); Alanine Aminotransfer ALT/SGPT 22 U/L (13-56); Albumin, Serum 3.9 g/dL (3.2-5.0); Alkaline Phosphatase 83 U/L (45-117); Anion Gap 7 (5-15); BUN 20 mg/dL (7-18); BUN/Creat Ratio 15.6 RATIO (10-20); Chloride 99 mmol/L (98-107); Creatinine, Serum 1.28 mg/dL (0.55-1.02); EST Glomerular Filtration Rate 44 mL/min (>60); Est Glom Filt Rate - Afr Amer 54 mL/min (>60); Estimated Creatinine Clearance 44.57 ml/min; Glucose 159 mg/dL (74-106); Lipase 133 U/L (73-393); Potassium 3.5 mmol/L (3.5-5.1); Protein, Total 6.9 g/dL (6.4-8.2); Sodium Level 135 mmol/L (136-145)
[2019-06-25] MEDS: proMETHazine 25 MG/ML Syringe 6.25 MG IV (14:43)
[2019-06-25 15:13] VITALS: BP 151/84; PULSE 84; RESP 18; O2SAT 99
[2019-06-25 16:28] VITALS: BP 165/98; PULSE 86; RESP 17; O2SAT 99
== END 2019-06-25 16:33 | disposition home or self-care (01) ==
PROVIDERS: Emergency Provider Emergency Medicine; Family Provider Student in an Organized Health Care Education/Training Program; PCP Student in an Organized Health Care Education/Training Program
DX: G43.A0 Cyclical vomiting, in migraine, not intractable (principal); Z79.4 Long term (current) use of insulin; Z79.899 Other long term (current) drug therapy; Z95.1 Presence of aortocoronary bypass graft; Z90.5 Acquired absence of kidney; Z90.710 Acquired absence of both cervix and uterus; Z88.8 Allergy status to other drugs, medicaments and biological substances
CPT/HCPCS: 80053; 83690; 85025; 96361; 96365; 96372; 96375; 99285; J7030; J2405

== ENCOUNTER 2019-07-27 16:17 | Emergency (ER) | payer MEDICARE, SELFPAY ==
[2019-07-27 16:17] VITALS: BP 136/87; PULSE 89; RESP 19; TEMP 36.9; O2SAT 97; BMI 22.4
--- NOTE | 2019-07-27 16:26 | ED.DCSUM_ITS ---
History of Present Illness Chief Complaint: Nausea/Vomiting Informant: Patient Onset: Yesterday Context: Gradual Onset Timing: Continuous Current Severity: Moderate Maximum Severity: Moderate Narrative: The patient has a history of cyclic vomiting syndrome. She states that this is her normal flare. States over the past 2 days, she had increasing nausea and vomiting. She is an insulin-dependent diabetic, but states her blood sugars been running normally. She is been trying Zofran with little improvement. She denies any chest pain or shortness of breath. She denies any abdominal pain. She states this feels like her normal symptoms. Prior similar symptoms: Yes Recent Illness/Hospitalization: Yes Past Medical History - Allergies and Home Meds Allergies/Adverse Reactions: Allergies diphenhydramine HCl [From Benadryl] Adverse Reaction (Verified 06/25/19 11:58) Other metoclopramide [From Reglan] Adverse Reaction (Verified 06/25/19 11:58) Other Primary Care Physician: Tae Banegas DO [Primary Care Provider] - Prior records reviewed: Yes Past Medical History: - Surgical History: coronary bypass surgery, hysterectomy, - - Back surgery. partial nephrectomy for cancer. Smoking Status: Former smoker Alcohol: None Drugs: None - Family History Maternal Family History: Family History (Last Reviewed 03/07/19 @ 19:14 by Peter Llamas MD) Mother Cancer Father Colon cancer Heart disease Sister Colon cancer Family History: Reports: No pertinent history Paternal Family History: Family History (Last Reviewed 03/07/19 @ 19:14 by Peter Llamas MD) Mother Cancer Father Colon cancer Heart disease Sister Colon cancer Family History: Reports: No pertinent history Review of Systems General: Denies: Chills, Fever, Sweats Eyes: Denies: Visual changes - bilaterally, Diplopia ENT: Denies: Rhinorrhea, Sore throat Cardiovascular: Denies: Chest pain, Palpitations Respiratory: Denies: Dyspnea, Cough, Dyspnea on exertion Gastrointestinal: Reports: Nausea, Vomiting. Denies: Abdominal pain, Diarrhea, Melena, Hematochezia Genitourinary: Denies: Dysuria, Hematuria, Frequency Musculoskeletal: Denies: Back pain, Extremity Pain Skin: Denies: Rash, Wounds Neurological: Denies: Headache, Weakness, Numbness Physical Exam Vital Signs/Narrative: Vital Signs Temp Pulse Resp BP Pulse Ox 07/27/19 16:17 98.5 F 89 19 H 136/87 H 97 Inital Vital Signs reviewed: Yes General: Well nourished, Well developed, No Acute Distress Head: Normocephalic, Atraumatic Eyes: Perrl, EOMI ENT: Moist mucous membranes, No rhinorrhea Neck: Supple, Nontender Cardiovascular: Regular rate, Regular rhythm, No murmurs Respiratory: No distress, CTA bilaterally, Chest nontender Abdomen: Soft, Nontender, Nondistended, Normal bowel sounds Back: Nontender, Normal Inspection Extremities: Nontender, No edema Skin: Normal color, No rash Neurological: Alert, Oriented x3, Cranial nerves II-XII grossly intact, Normal Strength, Normal Sensation Psychological: Normal affect, Normal Mood Diagnostic/Tx/Re-eval Abnormal Lab Results 07/27/19 07/27/19 16:42 16:42 WBC 8.9 RBC 4.67 Hgb 14.7 Hct 43.3 MCV 92.7 MCH 31.5 MCHC 33.9 RDW Std Deviation 39.4 RDW Coeff of Ray 11.6 Plt Count 200 MPV 9.0 Immature Gran % (Auto) 0.300 Neut % (Auto) 76.1 H Lymph % (Auto) 18.1 L Wilbarger % (Auto) 4.3 Eos % (Auto) 0.8 Baso % (Auto) 0.4 Absolute Neuts (auto) 6.8 Absolute Lymphs (auto) 1.61 Nucleated RBC % 0 Sodium 141 Potassium 4.1 Chloride 107 Carbon Dioxide 31.0 Anion Gap 3 L BUN 13 Creatinine 0.99 Estim Creat Clear Calc 57.63 Est GFR (MDRD) Af Amer 72 Est GFR (MDRD) Non-Af 59 L BUN/Creatinine Ratio 13.1 Glucose 88 Calcium 8.8 Total Bilirubin 0.60 AST 20 ALT 28 Alkaline Phosphatase 74 Total Protein 6.6 Albumin 3.4 Globulin 3.2 Albumin/Globulin Ratio 1.1 - Medical Decision Making The patient has no abdominal pain. IV was established. She was treated with antiemetics and fluids. Screening labs were obtained. These were unremarkable. Her blood sugar was normal. On reevaluation, she is resting comfortably. No fever nausea or vomiting. She will be prescribed Phenergan. She will be discharged home. Impression 1. Exacerbation of cyclic vomiting syndrome ED Disposition - Plan for ED Patient: Disposition: Home or Assisted Living Instructions: VOMITING (8y-Adult) Prescriptions: proMETHazine tablet [Phenergan] 25 mg PO Q6H PRN PRN #10 tab PRN Reason: Nausea Prescription Printed Referrals: Tae Banegas DO [Primary Care Provider] -
[2019-07-27] MEDS: 0.9% Normal Saline 1,000 ML 1000 ML IV (16:43)
[2019-07-27] MEDS: proMETHazine 25 MG/ML Syringe 12.5 MG IV (16:43)
[2019-07-27] MEDS: LORazepam 2 MG/ML Syringe 1 MG IV (16:46)
[2019-07-27 16:47] VITALS: RESP 16
[2019-07-27 16:58] LABS: Absolute Lymphocyte Count 1.61 X10^3/uL (0.83-4.51); Absolute Neutrophil Count 6.8 X10^3/uL (2.0-7.7); Basophil# 0.04 X10^3/uL; Basophil% 0.4 % (0-1); Eosinophil# 0.07 X10^3/uL; Eosinophils% 0.8 % (0-5); Hematocrit 43.3 % (37-47); Hemoglobin 14.7 g/dL (12.0-15.0); Lymphocyte # 1.61 X10^3/ul (4.0); Lymphocyte % 18.1 % (19-41); Mean Corp Hgb Conc 33.9 g/dL (32-36); Mean Corpuscular Hgb 31.5 pg (27.0-32.0); Mean Corpuscular Volume 92.7 fL (81-99); Monocyte# 0.38 X10^3/uL; Monocyte% 4.3 % (0-10); NRBC Flagged by Analyzer 0 % (0-5); Neutrophil # 6.76 X10^3/uL (2.7-7.7); Neutrophil % 76.1 % (47-70); Platelet Count 200 K/mm3 (150-450); RBC Distribution Width CV 11.6 % (11.6-14.6); RBC Distribution Width SD 39.4 fl (35.1-43.9); Red Blood Count 4.67 M/mm3 (4.2-5.4); White Blood Count 8.9 K/mm3 (4.4-11.0)
[2019-07-27 17:10] LABS: ALB/GLOB Ratio 1.1 RATIO (0.9-2.4); AST(SGOT) 20 U/L (15-37); Alanine Aminotransfer ALT/SGPT 28 U/L (13-56); Albumin, Serum 3.4 g/dL (3.2-5.0); Alkaline Phosphatase 74 U/L (45-117); Anion Gap 3 (5-15); BUN 13 mg/dL (7-18); BUN/Creat Ratio 13.1 RATIO (10-20); Calcium,Total 8.8 mg/dL (8.5-10.1); Chloride 107 mmol/L (98-107); Creatinine, Serum 0.99 mg/dL (0.55-1.02); EST Glomerular Filtration Rate 59 mL/min (>60); Est Glom Filt Rate - Afr Amer 72 mL/min (>60); Estimated Creatinine Clearance 57.63 ml/min; Globulin 3.2 g/dL (2.2-4.2); Glucose 88 mg/dL (74-106); Potassium 4.1 mmol/L (3.5-5.1); Protein, Total 6.6 g/dL (6.4-8.2); Sodium Level 141 mmol/L (136-145)
[2019-07-27 17:31] VITALS: PULSE 85; RESP 16; O2SAT 96
== END 2019-07-27 17:33 | disposition home or self-care (01) ==
LOC: ED 16:35
PROVIDERS: Emergency Provider Emergency Medicine; Family Provider Student in an Organized Health Care Education/Training Program; PCP Student in an Organized Health Care Education/Training Program
DX: G43.A0 Cyclical vomiting, in migraine, not intractable (principal); E11.9 Type 2 diabetes mellitus without complications; Z79.4 Long term (current) use of insulin; Z87.891 Personal history of nicotine dependence; Z88.8 Allergy status to other drugs, medicaments and biological substances; Z90.5 Acquired absence of kidney; Z90.710 Acquired absence of both cervix and uterus
CPT/HCPCS: 80053; 85025; 96361; 96374; 96375; 99283; J7030

== ENCOUNTER 2019-08-14 15:46 | Emergency (ER) | payer MEDICARE, SELFPAY ==
[2019-08-14 15:47] VITALS: BP 105/75; PULSE 107; RESP 17; TEMP 36.7; O2SAT 96; BMI 22.7
[2019-08-14] MEDS: 0.9% Normal Saline 1,000 ML 1000 ML IV ×2 (16:59→18:09)
[2019-08-14] MEDS: Morphine 4 MG/ML Syringe IV (16:59)
[2019-08-14] MEDS: Ondansetron 4 MG/2 ML Vial IV (16:59)
[2019-08-14 17:04] LABS: Absolute Neutrophil Count 5.5 X10^3/uL (2.0-7.7); Basophil# 0.03 X10^3/uL; Basophil% 0.4 % (0-1); Eosinophil# 0.05 X10^3/uL; Eosinophils% 0.6 % (0-5); Hematocrit 42.8 % (37-47); Hemoglobin 14.9 g/dL (12.0-15.0); Lymphocyte % 21.9 % (19-41); Mean Corp Hgb Conc 34.8 g/dL (32-36); Mean Corpuscular Hgb 31.1 pg (27.0-32.0); Mean Corpuscular Volume 89.4 fL (81-99); Mean Platelet Vol. 9.2 fl (6.2-12.0); Monocyte# 0.46 X10^3/uL; Monocyte% 5.9 % (0-10); NRBC Flagged by Analyzer 0 % (0-5); Neutrophil % 70.8 % (47-70); Platelet Count 235 K/mm3 (150-450); RBC Distribution Width CV 11.6 % (11.6-14.6); RBC Distribution Width SD 37.3 fl (35.1-43.9); Red Blood Count 4.79 M/mm3 (4.2-5.4); White Blood Count 7.8 K/mm3 (4.4-11.0)
[2019-08-14 17:12] LABS: AST(SGOT) 15 U/L (15-37); Alanine Aminotransfer ALT/SGPT 29 U/L (13-56); Albumin, Serum 3.4 g/dL (3.2-5.0); Alkaline Phosphatase 64 U/L (45-117); Anion Gap 7 (5-15); BUN 11 mg/dL (7-18); BUN/Creat Ratio 11.1 RATIO (10-20); Bilirubin, Direct 0.12 mg/dL (0.00-0.30); Calcium,Total 8.6 mg/dL (8.5-10.1); Chloride 104 mmol/L (98-107); EST Glomerular Filtration Rate 59 mL/min (>60); Est Glom Filt Rate - Afr Amer 72 mL/min (>60); Estimated Creatinine Clearance 57.05 ml/min; Globulin 3.1 g/dL (2.2-4.2); Glucose 131 mg/dL (74-106); Lipase 167 U/L (73-393); Potassium 3.4 mmol/L (3.5-5.1); Protein, Total 6.5 g/dL (6.4-8.2); Sodium Level 139 mmol/L (136-145)
[2019-08-14 18:10] VITALS: RESP 18
[2019-08-14 20:05] VITALS: RESP 17
--- NOTE | 2019-08-14 20:37 | ED.VISSUMM ---
- ER Visit Summary Date of Service: 08/14/19 Chief Complaint: Abdominal pain and vomiting History of Present Illness: The patient is a 69 F who is a long history of cyclic vomiting and abdominal pain. She has extensive visits and is through the emergency department. Tells me that since yesterday she has had nausea and vomiting. She notes a abdominal pain which she states it feels different than normal. She describes as a generalized aching sensation was present yesterday as well as today. She had normal bowel movement yesterday. She is scheduled to have her gallbladder removed on the . She states that there was no noted gallstones or sludge on ultrasound. Physical Examination: Afebrile vital signs are stable Gen: Well-nourished well-developed Head: Normocephalic atraumatic Eyes: Perrl EOMI ENT: TMs clear no rhinorrhea moist mucous membranes Neck: Supple no lymphadenopathy no JVD nontender CVS: Regular rate rhythm no murmurs normal S1-S2 Respiratory: No distress clear to auscultation bilaterally chest nontender Abdomen: Soft diffuse tenderness to palpation without guarding or rebound nondistended normal bowel sounds no masses Back: Nontender Extremity: Nontender no edema Skin: Normal color no rash Neuro: alert orientated ?3 CN II-XII intact normal strength sensation reflexes gait cerebellar Psych: Normal affect normal mood Test Results: The CBC was normal. Chemistry showed glucose 131. Normal liver lipase. Emergency Department Course and Treatment: She received 2 L of IV fluids as well as Zofran and morphine. She feels improved and would like to be discharged. Impression: 1. Vomiting 2. Abdominal pain This note was generated with [employer] dictation software. It may contain incorrect words, spelling, and punctuation that were not noted in review of the chart prior to signing ED Disposition - Plan for ED Patient: Disposition: Home or Assisted Living Instructions: VOMITING (8y-Adult) Referrals: Tae Banegas DO [Primary Care Provider] - As Needed
[2019-08-14 20:51] VITALS: BP 108/76; PULSE 99; RESP 16; O2SAT 97
== END 2019-08-14 20:52 | disposition home or self-care (01) ==
PROVIDERS: Emergency Provider Emergency Medicine; Family Provider Student in an Organized Health Care Education/Training Program; PCP Student in an Organized Health Care Education/Training Program
DX: R11.2 Nausea with vomiting, unspecified (principal); R10.9 Unspecified abdominal pain; I12.9 Hypertensive chronic kidney disease with stage 1 through stage 4 chronic kidney disease, or unspecified chronic kidney disease; E11.22 Type 2 diabetes mellitus with diabetic chronic kidney disease; N18.9 Chronic kidney disease, unspecified; J44.9 Chronic obstructive pulmonary disease, unspecified; Z79.4 Long term (current) use of insulin; Z79.899 Other long term (current) drug therapy; Z87.891 Personal history of nicotine dependence; Z95.1 Presence of aortocoronary bypass graft
CPT/HCPCS: 80048; 80076; 83690; 85025; 96361; 96374; 96375; 99283; J7030; A4216; J2405

== ENCOUNTER 2019-09-09 13:36 | Emergency (ER) | payer MEDICARE, SELFPAY ==
[2019-09-09 13:36] VITALS: BP 157/88; PULSE 92; RESP 16; TEMP 37.1; O2SAT 99; BMI 24.0
--- NOTE | 2019-09-09 14:01 | CT_ITS ---
STUDY: CT ABDOMEN AND PELVIS WITH CONTRAST REASON FOR EXAM: Female, 69 years old. Status post cholecystectomy 4 days ago, right upper quadrant pain RADIATION DOSAGE (If Supplied By Facility): CTDIvol = ( 9.68 ) mGy, DLP = ( 865.82 ) mGycm TECHNIQUE: Transaxial images were obtained from the dome of the diaphragm to the symphysis pubis without oral contrast. IV 100mL Isovue-300 100 was administered. Sagittal and coronal images were reconstructed. Individualized dose optimization techniques were used for this CT. COMPARISON: None. FINDINGS: The visualized lung bases are unremarkable. The visualized portions of the heart are within normal limits. There is mild intrahepatic and moderate extra hepatic bile duct dilation. CBD measures 10 mm. Gallbladder is surgically absent. Expected perihepatic and gallbladder fossa fluid with tiny locule of air (image 33) given recent surgery. Minimal pneumoperitoneum along the dependent lower abdomen and air left abdomen wall also compatible with recent surgery. Normal spleen. Normal pancreas. Normal bilateral adrenal glands. Left renal cysts are stable. Localized scarring of the inferior posterior right kidney compatible with prior partial nephrectomy. Normal left kidney. There is a small hiatal hernia. There is wall thickening of the gastric antrum extending into the proximal duodenum with mild amount of adjacent stranding. There is fecal residue of the colon including the rectal vault. There is non-visualization of the appendix. There is diffuse atherosclerotic calcification of the abdominal aorta, without a demonstrated aneurysm. Normal inferior vena cava. Normal retroperitoneum. Normal urinary bladder. There is absence of the uterus consistent with a prior hysterectomy. Normal abdominal wall. There are diffuse degenerative changes of the visualized lumbar spine. CT/Abdomen/Pelvis W IV Cont ONLY IMPRESSION: 1. Gastric antral and proximal duodenal wall thickening with adjacent stranding suggesting antritis/duodenitis. 2. Extrahepatic more than intrahepatic bile duct dilation. Can be related to recent cholecystectomy although a distal CBD obstruction cannot be excluded based on this exam. New since prior study. Recommend correlation with laboratory values and clinical information. 3. Minimal abdominal free fluid and pneumoperitoneum/body wall emphysema compatible with recent surgery. Electronically Signed: Joshua Lam MD ([place]) at 16:01 EDT , Service support ,
[2019-09-09] MEDS: 0.9% Normal Saline 1,000 ML 1000 ML IV (14:33)
[2019-09-09] MEDS: Ondansetron 4 MG/2 ML Vial IV (14:33)
[2019-09-09] MEDS: Morphine 4 MG/ML Syringe IV ×2 (14:34→16:45)
[2019-09-09 14:51] VITALS: PULSE 92; TEMP 37.1
[2019-09-09 14:56] LABS: Absolute Lymphocyte Count 1.19 X10^3/uL (0.83-4.51); Basophil# 0.04 X10^3/uL; Basophil% 0.4 % (0-1); Eosinophil# 0.09 X10^3/uL; Eosinophils% 0.8 % (0-5); Hematocrit 40.9 % (37-47); Hemoglobin 13.4 g/dL (12.0-15.0); Lymphocyte # 1.19 X10^3/ul (4.0); Mean Corp Hgb Conc 32.8 g/dL (32-36); Mean Corpuscular Volume 94.7 fL (81-99); Mean Platelet Vol. 9.4 fl (6.2-12.0); Monocyte# 0.41 X10^3/uL; Monocyte% 3.8 % (0-10); NRBC Flagged by Analyzer 0 % (0-5); Neutrophil # 9.03 X10^3/uL (2.7-7.7); Neutrophil % 83.6 % (47-70); Platelet Count 205 K/mm3 (150-450); RBC Distribution Width CV 11.9 % (11.6-14.6); RBC Distribution Width SD 41.7 fl (35.1-43.9); Red Blood Count 4.32 M/mm3 (4.2-5.4); White Blood Count 10.8 K/mm3 (4.4-11.0)
[2019-09-09 15:17] LABS: ALB/GLOB Ratio 0.9 RATIO (0.9-2.4); AST(SGOT) 30 U/L (15-37); Alanine Aminotransfer ALT/SGPT 36 U/L (13-56); Albumin, Serum 3.3 g/dL (3.2-5.0); Alkaline Phosphatase 76 U/L (45-117); Anion Gap 6 (5-15); BUN 11 mg/dL (7-18); BUN/Creat Ratio 13.1 RATIO (10-20); Calcium,Total 9.1 mg/dL (8.5-10.1); Chloride 107 mmol/L (98-107); Creatinine, Serum 0.84 mg/dL (0.55-1.02); EST Glomerular Filtration Rate 72 mL/min (>60); Est Glom Filt Rate - Afr Amer 87 mL/min (>60); Estimated Creatinine Clearance 67.92 ml/min; Globulin 3.7 g/dL (2.2-4.2); Glucose 73 mg/dL (74-106); Lipase 108 U/L (73-393); Potassium 3.9 mmol/L (3.5-5.1); Sodium Level 142 mmol/L (136-145)
[2019-09-09] MEDS: HYDROmorphone 1 MG/ML Syringe IV (15:17)
[2019-09-09 15:21] VITALS: PULSE 89; RESP 17; TEMP 36.8; O2SAT 97
--- NOTE | 2019-09-09 15:52 | ED.RN ---
This nurse called to CT after pt's iv infiltrated with about 15ml of contrast. IV dc'd and new line placed in right arm and CT was obtained. Warm compress applied and MD notified. No new orders and will continue to monitor.
[2019-09-09 16:23] VITALS: BP 139/61; PULSE 88; RESP 17; TEMP 37; O2SAT 99
--- NOTE | 2019-09-09 16:34 | ED.VISSUMM ---
- ER Visit Summary Date of Service: 09/09/19 Chief Complaint: Abdominal palm History of Present Illness: The patient is a [address] Banegas. She had an outpatient laparoscopic cholecystectomy [address] Sim. She has an appointment to follow-up on September 13. Patient reports that she has right upper quadrant abdominal pain that began 2 hours ago. Is a sharp pain is 10 to 10 hours and out of 10 currently. Is worsened by movement. Nothing makes this better. She reports that she ran out of Percocet 5 hours ago. She has been nauseated and vomited once. No blood or emesis. Her last bowel was today. No melena hematochezia. No dysuria frequency. No fever or chills. No chest pain or shortness of breath. Physical Examination: Vitals: Stable. Afebrile. General: Well-nourished and well-developed. Head: Normocephalic atraumatic. Neck: Supple, no lymphadenopathy. No JVD. Nontender. Cardiovascular: Regular rate and rhythm. No murmurs. Respiratory: No respiratory distress. Clear to auscultation bilaterally. Abdominal: Soft, moderate right upper quadrant tenderness to palpation, nondistended, normal bowel sounds. No guarding, rebound, or peritoneal signs. Back: Nontender. Extremities: Nontender, no edema. Skin: Normal color, no rash. Neurologic: Alert and oriented ?3. Cranial nerves II through XII are intact. Normal strength and sensation. Psych: Normal affect. Test Results: CBC shows segmented neutrophils of 84 lymphocytes of 11. Chem-7 shows a glucose of 73. LFTs normal. Lipase normal. Clinical Impression(s) from Imaging Studies Abdomen/Pelvis CT 09/09/19 14:01 IMPRESSION: 1. Gastric antral and proximal duodenal wall thickening with adjacent stranding suggesting antritis/duodenitis. 2. Extrahepatic more than intrahepatic bile duct dilation. Can be related to recent cholecystectomy although a distal CBD obstruction cannot be excluded based on this exam. New since prior study. Recommend correlation with laboratory values and clinical information. 3. Minimal abdominal free fluid and pneumoperitoneum/body wall emphysema compatible with recent surgery. Electronically Signed: Joshua Lam MD ([place]) at 16:01 EDT , Service support , Emergency Department Course and Treatment: Patient was initially given a dose of morphine and Zofran IV. She continued to complain of pain. She was given Dilaudid IV. An [facility] report was obtained which does show that she has prescriptions for Percocet every month. Treatment Plan: Patient was discussed with Dr. Feldman. Her labs and imaging do not show evidence of a postop infection. Her bilirubin is normal. I suspect a component of this is due to being out of her Percocet. She will be discharged prescription for 12 Percocet and Phenergan. Instructed to call Dr. Bolden in 2 days to let her know how she is doing. Return to the emergency department for any worsening symptoms. Disposition: To home in improved and stable condition. Impression: 1. 4 days status post laparoscopic cholecystectomy. This note was generated with [employer] dictation software. It may contain incorrect words, spelling, and punctuation that were not noted in review of the chart prior to signing ED Disposition - Plan for ED Patient: Instructions: POST OP WOUND CHECK, Pain Prescriptions: Oxycodone HCl/Acetaminophen [Percocet 5/325] 1 tablet PO Q6H PRN PRN 3 Days #12 tablet PRN Reason: Pain proMETHazine tablet [Phenergan] 25 mg PO Q6H PRN PRN #10 tablet PRN Reason: Nausea Referrals: Ann Bolden MD [STAFF PHYSICIAN] - 2 Days
[2019-09-09 16:56] VITALS: BP 165/61; PULSE 88; RESP 18; O2SAT 99
== END 2019-09-09 16:57 | disposition home or self-care (01) ==
LOC: ED 14:21
PROVIDERS: Emergency Provider Emergency Medicine; Family Provider Student in an Organized Health Care Education/Training Program; PCP Student in an Organized Health Care Education/Training Program
DX: R10.11 Right upper quadrant pain (principal); R11.2 Nausea with vomiting, unspecified; I25.10 Atherosclerotic heart disease of native coronary artery without angina pectoris; E11.9 Type 2 diabetes mellitus without complications; Z87.891 Personal history of nicotine dependence; Z95.1 Presence of aortocoronary bypass graft; Z90.49 Acquired absence of other specified parts of digestive tract
CPT/HCPCS: 74177; 80053; 83690; 85025; 96361; 96374; 96375; 96376; 99285; J7030; Q9967; A4216; J2405

== ENCOUNTER 2021-01-01 09:03 | Observation (INO) | payer MEDICARE, SELFPAY ==
[2020-10-24 10:22] VITALS: BMI 25.8
[2021-01-01] VITALS (8 sets, daily range): BP systolic 101–142; BP diastolic 40–83; PULSE 70–141; RESP 16–22; TEMP 36.4–36.9; O2SAT 92–99; BMI 24.3; BMI 23.3; BMI 23.4
--- NOTE | 2021-01-01 09:21 | ED.VIS.GEN ---
History of Present Illness Chief Complaint: Abd Pain Informant: Patient Narrative: 70-year-old female presenting with abdominal pain which she describes as upper abdominal. She states that she has had nausea and some vomiting for the last 4 days. She also complains of constipation. She states she tried to drink prune juice which made her stool loose however spent 4 days since has had a bowel movement. She states her past surgical history is cholecystectomy and bladder sling. The patient denies fever, chills. She denies change in urinary habits. Patient states she has cyclic vomiting syndrome. She also states that she tried hot baths several times which make her feel better in the short-term but then her pain and nausea comes back. She denies drugs or alcohol use. - Past Medical History (1) Atherosclerosis of coronary artery of [place] heart without angina pectoris Status: Chronic (2) Essential (primary) hypertension Status: Chronic (3) Paroxysmal atrial fibrillation Status: Chronic Comment: Failed DCCV; failed drug therapy; radiofrequency ablation; (4) Renal cell carcinoma Status: Chronic Past Medical History - Allergies and Home Meds Allergies/Adverse Reactions: Allergies diphenhydramine HCl [From Benadryl] Adverse Reaction (Verified 01/01/21 09:04) Other dofetilide Adverse Reaction (Verified 01/01/21 09:04) LONG QT Long QT secondary to chronic hypomagnesemia metoclopramide [From Reglan] Adverse Reaction (Verified 01/01/21 09:04) Other Primary Care Physician: Tae Banegas DO [Primary Care Provider] - Prior records reviewed: Yes Past Medical History: - - Reviewed in problem list Surgical History: coronary bypass surgery, hysterectomy, - - Back surgery. partial nephrectomy for cancer. Lives: Alone Smoking Status: Former smoker Alcohol: None Drugs: None - Family History Maternal Family History: Family History (Last Reviewed 10/25/19 @ 11:[address] Johnny Kwon MD) Mother Cancer Father Colon cancer Heart disease Sister Colon cancer Family History: Reports: No pertinent history Paternal Family History: Family History (Last Reviewed 10/25/19 @ 11:[address] Johnny Kwon MD) Mother Cancer Father Colon cancer Heart disease Sister Colon cancer Family History: Reports: No pertinent history Review of Systems General: Denies: Chills, Fever, Sweats Eyes: Denies: Visual changes - bilaterally, Diplopia ENT: Denies: Rhinorrhea, Sore throat Cardiovascular: Denies: Chest pain, Palpitations Respiratory: Denies: Dyspnea, Cough, Dyspnea on exertion Gastrointestinal: Reports: Abdominal pain, Nausea, Vomiting, Diarrhea, Constipation Genitourinary: Denies: Dysuria, Hematuria Musculoskeletal: Denies: Myalgias, Arthralgias Skin: Denies: Rash, Abscess Neurological: Denies: Headache, Weakness, Parasthesia, Numbness Psych: Denies: Depression, Anxiety Physical Exam Vital Signs/Narrative: Vital Signs Temp Pulse Resp BP Pulse Ox 01/01/21 09:04 97.5 F L 141 H 22 H 136/83 H 98 Inital Vital Signs reviewed: Yes Head: Normocephalic, Atraumatic Eyes: Perrl, EOMI. Negative for: Scleral icterus ENT: Moist mucous membranes, No rhinorrhea Cardiovascular: Regular rate, Regular rhythm Respiratory: No distress, CTA bilaterally Abdomen: Soft, Nondistended, Tender - Tenderness to palpation in the epigastric region. Abdomen is nonperitoneal. Skin: Normal color, No rash Neurological: Alert, Oriented x3, Cranial nerves II-XII grossly intact Psychological: Normal affect, Normal Mood Diagnostic/Tx/Re-eval Clinical Impression(s) from Imaging Studies Abdomen/Pelvis CT 01/01/21 09:27 IMPRESSION: Status post cholecystectomy. Persistent thickening of the gastric antrum extending into the first portion of the duodenum with mild increased markings in the surrounding peritoneal fat although this has improved as compared to prior study. Electronically Signed: Ramrio Valentin MD at 10:56 EST , Service support , Laboratory Data 01/01/21 01/01/21 01/01/21 09:35 09:37 09:37 WBC 10.6 RBC 5.17 Hgb 16.0 H Hct 45.5 MCV 88.0 MCH 30.9 MCHC 35.2 RDW Std Deviation 37.4 RDW Coeff of Ray 11.6 Plt Count 307 MPV 9.7 Immature Gran % (Auto) 0.400 Neut % (Auto) 58.3 Lymph % (Auto) 33.2 [place] % (Auto) 7.0 Eos % (Auto) 0.6 Baso % (Auto) 0.5 Absolute Neuts (auto) 6.2 Absolute Lymphs (auto) 3.53 Nucleated RBC % 0 Sodium 135 L Potassium 3.0 L Chloride 94 L Carbon Dioxide 31.0 Anion Gap 10 BUN 22 H Creatinine 1.85 H Estim Creat Clear Calc 29.36 Est GFR (MDRD) Af Amer 35 L Est GFR (MDRD) Non-Af 29 L BUN/Creatinine Ratio 11.9 Glucose 169 H Calcium 9.4 Magnesium Total Bilirubin 1.20 H AST 16 ALT 21 Alkaline Phosphatase 80 Total Protein 7.6 Albumin 4.0 Globulin 3.6 Albumin/Globulin Ratio 1.1 Lipase 122 Urine Color Yellow Urine Clarity Sl. Cloudy Urine pH 5.0 Ur Specific [place] 1.030 Urine Protein 30 H Urine Glucose (UA) Normal Urine Ketones 50 H Urine Occult Blood 10 H Urine Nitrite Negative Urine Bilirubin 1 H Urine Urobilinogen 1 H Ur Leukocyte Esterase 100 H Urine RBC 0-5 SEEN Urine WBC 5-10 SEEN Ur Squamous Epith Cells 5-10 SEEN Urine Bacteria 1+ Urine Mucus 1+ 01/01/21 09:37 WBC RBC Hgb Hct MCV MCH MCHC RDW Std Deviation RDW Coeff of Ray Plt Count MPV Immature Gran % (Auto) Neut % (Auto) Lymph % (Auto) [place] % (Auto) Eos % (Auto) Baso % (Auto) Absolute Neuts (auto) Absolute Lymphs (auto) Nucleated RBC % Sodium Potassium Chloride Carbon Dioxide Anion Gap BUN Creatinine Estim Creat Clear Calc Est GFR (MDRD) Af Amer Est GFR (MDRD) Non-Af BUN/Creatinine Ratio Glucose Calcium Magnesium 1.7 Total Bilirubin AST ALT Alkaline Phosphatase Total Protein Albumin Globulin Albumin/Globulin Ratio Lipase Urine Color Urine Clarity Urine pH Ur Specific [place] Urine Protein Urine Glucose (UA) Urine Ketones Urine Occult Blood Urine Nitrite Urine Bilirubin Urine Urobilinogen Ur Leukocyte Esterase Urine RBC Urine WBC Ur Squamous Epith Cells Urine Bacteria Urine Mucus - Medical Decision Making 70-year-old female with cyclical vomiting syndrome presenting with 4 days of nausea/vomiting. Patient not homebuilder hold down food or fluids. Her lab work suggest she is acutely dehydrated and has an JESSENIA. She is also hypokalemic. She was given 40 mEq IV however I suspect she will be eating more with hydration. Her magnesium level is normal at this time. Patient had CT of the abdomen pelvis which showed persistent thickening of the gastric antrum and the duodenum. This appears to be improved from her previous CT per radiology. I believe patient would benefit from inpatient treatment given her JESSENIA and hypokalemia. She is amenable to this plan. Impression: 1. Abdominal pain 2. Thickening of gastric antrum and duodenum 3. Hypokalemia 4. Nausea/vomiting ED Disposition - Plan for ED Patient: Disposition: Acute Care Hospital [facility] Referrals: Tae Banegas DO [Primary Care Provider] -
--- NOTE | 2021-01-01 09:27 | CT_ITS ---
STUDY: CT ABDOMEN AND PELVIS WITH CONTRAST REASON FOR EXAM: Female, 70 years old. Upper abdomen pain with nausea/vomiting x 4 days. Hx diabetes, hypertension, partial right nephrectomy, stage 3 renal disease, laminectomy. RADIATION DOSAGE (If Supplied By Facility): CTDIvol = ( 15.23 ) mGy, DLP = ( 727.62 ) mGycm TECHNIQUE: Transaxial images were obtained from the dome of the diaphragm to the symphysis pubis without oral contrast. IV 75mL Isovue-370 was administered. Sagittal and coronal images were reconstructed. Individualized dose optimization techniques were used for this CT. COMPARISON: Comparison is made with prior examination of 09/09/2019. FINDINGS: Stable minimal linear scarring at the lung bases. Prior CABG. Coronary artery calcification. Normal liver. The patient is status post cholecystectomy. Normal spleen. Normal pancreas. Normal bilateral adrenal glands. Stable right renal cysts. Normal left kidney. There is a small hiatal hernia. Once again, there is evidence of thickening of the gastric antrum extending into the proximal duodenum. Minimal surrounding stranding of the peritoneal fat. This has improved as compared to prior study. Normal small intestine. Normal colon. The appendix is visualized and appears normal. There is diffuse atherosclerotic calcification of the abdominal aorta, without a demonstrated aneurysm. Normal inferior vena cava. Normal retroperitoneum. Normal urinary bladder. There is absence of the uterus consistent with a prior hysterectomy. Normal abdominal wall. There are diffuse degenerative changes of the visualized lumbar spine. CT/Abdomen/Pelvis W IV Cont ONLY IMPRESSION: Status post cholecystectomy. Persistent thickening of the gastric antrum extending into the first portion of the duodenum with mild increased markings in the surrounding peritoneal fat although this has improved as compared to prior study. Electronically Signed: Ramiro Valentin MD at 10:56 EST , Service support ,
[2021-01-01] MEDS: Ondansetron 4 MG/2 ML Vial IV (09:39)
[2021-01-01] MEDS: Morphine 4 MG/ML Syringe IV ×4 (09:39→20:52)
[2021-01-01 09:40] LABS: Color, Urine Yellow (Yellow); Glucose, Dipstick Normal (Normal); Ketone-Dipstick 50 mg/dl (Negative); Leukocyte Esterase-Dipstick 100 /ul (Negative); Nitrite-Dipstick Negative (Negative); Occult Blood-Urine 10 /ul (Negative); Protein-Dipstick 30 mg/dl (Negative); Urine Clarity Sl. Cloudy (Clear); Urine Urobilinogen 1 mg/dl (Normal)
[2021-01-01 09:43] LABS: Absolute Lymphocyte Count 3.53 X10^3/uL (0.83-4.51); Absolute Neutrophil Count 6.2 X10^3/uL (2.0-7.7); Basophil# 0.05 X10^3/uL; Basophil% 0.5 % (0-1); Eosinophil# 0.06 X10^3/uL; Eosinophils% 0.6 % (0-5); Hematocrit 45.5 % (37-47); Lymphocyte # 3.53 X10^3/ul (4.0); Lymphocyte % 33.2 % (19-41); Mean Corp Hgb Conc 35.2 g/dL (32-36); Mean Corpuscular Hgb 30.9 pg (27.0-32.0); Mean Platelet Vol. 9.7 fl (6.2-12.0); Monocyte# 0.74 X10^3/uL; NRBC Flagged by Analyzer 0 % (0-5); Neutrophil % 58.3 % (47-70); Platelet Count 307 K/mm3 (150-450); RBC Distribution Width CV 11.6 % (11.6-14.6); RBC Distribution Width SD 37.4 fl (35.1-43.9); Red Blood Count 5.17 M/mm3 (4.2-5.4); White Blood Count 10.6 K/mm3 (4.4-11.0)
[2021-01-01 09:44] LABS: Urine Bilirubin Dipstick 1 mg/dL (Negative)
[2021-01-01 09:46] LABS: Red Blood Cells-Urine 0-5 SEEN /hpf (0-5); White Blood Cells 5-10 SEEN /hpf (0-5)
[2021-01-01 09:47] LABS: Bacteria 1+ /hpf (None Seen); Mucous, Urine 1+ /hpf (<or=2+); Squamous Epithelial Cells - UA 5-10 SEEN /hpf (5-10)
[2021-01-01 10:00] LABS: ALB/GLOB Ratio 1.1 RATIO (0.9-2.4); AST(SGOT) 16 U/L (15-37); Alanine Aminotransfer ALT/SGPT 21 U/L (13-56); Alkaline Phosphatase 80 U/L (45-117); Anion Gap 10 (5-15); BUN 22 mg/dL (7-18); BUN/Creat Ratio 11.9 RATIO (10-20); Calcium,Total 9.4 mg/dL (8.5-10.1); Chloride 94 mmol/L (98-107); Creatinine, Serum 1.85 mg/dL (0.55-1.02); EST Glomerular Filtration Rate 29 mL/min (>60); Est Glom Filt Rate - Afr Amer 35 mL/min (>60); Estimated Creatinine Clearance 29.36 ml/min; Globulin 3.6 g/dL (2.2-4.2); Glucose 169 mg/dL (74-106); Lipase 122 U/L (73-393); Protein, Total 7.6 g/dL (6.4-8.2); Sodium Level 135 mmol/L (136-145)
[2021-01-01 10:33] LABS: Magnesium 1.7 mg/dL (1.6-2.6)
[2021-01-01] MEDS: proMETHazine 25 MG/ML Syringe 12.5 MG IV (11:13)
--- NOTE | 2021-01-01 11:34 | HP.PCM_ITS ---
Problem List (1) Paroxysmal atrial fibrillation Status: Chronic Comment: Failed DCCV; failed drug therapy; radiofrequency ablation; (2) Persistent atrial fibrillation Status: Chronic Comment: PVI w/ RFA (3) Atherosclerosis of coronary artery of [place] heart without angina pectoris Status: Chronic Qualifiers: Coronary Disease-Associated Artery/Lesion type: [place] artery Qualified Code(s): I25.10 - Atherosclerotic heart disease of [place] coronary artery without angina pectoris (4) H/O coronary artery bypass surgery Status: Resolved Comment: CABG x 2 FAIR-LAD, SVG-RPDA 01/29/2003 (5) Essential (primary) hypertension Status: Chronic (6) Hypomagnesemia Status: Chronic (7) Peripheral vascular occlusive disease Status: Chronic (8) Renal cell carcinoma Status: Chronic (9) Abdominal pain Status: Acute History of Present Illness Date of Admission: 01/01/21 Chief Complaint: Abdominal pain The patient is a 70 year old F who presented with abdominal pain. Symptoms started 5 days prior to patient's admission. Pain was located in the epigastric region. In addition to abdominal pain patient did experience intractable nausea vomiting. In view of the progressive nature of her symptoms presented to the emergency department. Imaging studies obtained in the ED demonstrated Persistent thickening of the gastric antrum extending into the first portion of the duodenum with mild increased markings in the surrounding peritoneal fat although this has improved as compared to prior study. Patient was also found to have worsening kidney function and hyperkalemia started on IV hydration pain meds antinausea medications admitted to regular nursing floor for further management. Past Medical History Past Medical History (Chronic Problems): Chronic Problems (Last Reviewed 10/25/19 @ 11:[address] Johnny Kwon MD) Paroxysmal atrial fibrillation (Chronic) Failed DCCV; failed drug therapy; radiofrequency ablation; Persistent atrial fibrillation (Chronic) PVI w/ RFA Atherosclerosis of coronary artery of [place] heart without angina pectoris (Chronic) Essential (primary) hypertension (Chronic) Hypomagnesemia (Chronic) Peripheral vascular occlusive disease (Chronic) Renal cell carcinoma (Chronic) Medical History: Medical History (Last Reviewed 01/01/21 @ 12:[address] Sudarshan Antnuez MD) Persistent atrial fibrillation (Chronic) I48.19 PVI w/ RFA Atherosclerosis of coronary artery of [place] heart without angina pectoris (Chronic) I25.10 Essential (primary) hypertension (Chronic) I10 Hypomagnesemia (Chronic) E83.42 Peripheral vascular occlusive disease (Chronic) I73.9 Renal cell carcinoma (Chronic) C64.9 Anxiety F41.9 Chronic vomiting R11.10 Gastro-esophageal reflux disease without esophagitis K21.9 Mild chronic obstructive pulmonary disease J44.9 NPDR (nonproliferative diabetic retinopathy) E11.3299 Peripheral neuropathy G62.9 Type II diabetes mellitus E11.9 Chronic kidney disease, stage 3 N18.3 Allergies diphenhydramine HCl [From Benadryl] Adverse Reaction (Verified 01/01/21 09:04) Other dofetilide Adverse Reaction (Verified 01/01/21 09:04) LONG QT Long QT secondary to chronic hypomagnesemia metoclopramide [From Reglan] Adverse Reaction (Verified 01/01/21 09:04) Other Home Medications: Ambulatory Orders Medication Instructions Recorded Atorvastatin Calcium [Lipitor] 80 mg PO DAILY 07/31/17 Insulin NPH Hum/Reg Insulin Hm 22 unit SQ BID 07/31/17 [Humulin 70-30 Vial] Losartan Potassium [Cozaar] 100 mg PO DAILY 07/31/17 Metoprolol(XL)Succ [Toprol Xl 50 mg PO DAILY 07/31/17 (Beta [place])] Ropinirole HCl [Requip Xl] 5 mg PO BID 07/31/17 Furosemide [Lasix] 20 mg PO DAILY 01/10/19 Amlodipine Besylate 10 mg PO DAILY 07/27/19 proMETHazine tablet [Phenergan] 25 mg PO Q6H PRN PRN #10 tab 09/09/19 escitalopram oxalate 20 mg tablet 20 mg PO DAILY tab 10/24/19 ondansetron HCl 4 mg tablet 4 mg PO BID-TID PRN 10/24/19 oxybutynin chloride 10 mg 10 mg PO DAILY 10/24/19 tablet,extended release 24 hr Dicyclomine HCl 10 mg PO DAILY 01/01/21 Trazodone HCl 50 mg PO DAILY 01/01/21 Surgical History: Surgical History (Last Reviewed 01/01/21 @ 12:[address] 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 History of cardioversion Onset Date: 2014 Z98.890 History of cholecystectomy Onset Date: 08/2019 Z90.49 History of colonoscopy Z98.890 History of esophagogastroduodenoscopy (EGD) Onset Date: 01/2018 Z98.890 History of hysterectomy Onset Date: 1995 Z90.710 History of open reduction and internal fixation (ORIF) procedure Z98.890 ankle History of partial nephrectomy Z90.5 for malignant tumor 2014 [facility] History of radiofrequency ablation procedure for cardiac arrhythmia Onset Date: 03/19/16 Z98.890 Pulmonary Vein Antral Isolation, Linear Roof and Posterior Left Atrial wall Ablation 03/19/16 Surgical History: coronary bypass surgery, hysterectomy, - - Back surgery. partial nephrectomy for cancer. 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 Sudarshan Antunez MD) Mother Cancer Father Colon cancer Heart disease Sister Colon cancer History Items: No pertinent history Paternal Family History: Family History (Last Reviewed 01/01/21 @ 12:[address] Sudarshan Antunez MD) Mother Cancer Father Colon cancer Heart disease Sister Colon cancer History Items: No pertinent history Review of Systems Constitutional: Reports: Anorexia. Denies: Chills, Fever, Night Sweats, Weight Change HEENT: Denies: Head Aches, Sinus Congestion, Sinus Drainage Cardiovascular: Denies: Chest Pain, Orthopnea, Palpitations, Paroxysmal Noc. Dyspnea Respiratory: Denies: Cough, Shortness of breath at rest, Shortness of breath upon exertion, Sputum production Gastrointestinal: Reports: Abdominal Pain, Nausea, Vomiting. Denies: Hematemesis, Hematochezia, Melena Genitourinary: Denies: Dysuria, Frequency, Hematuria, Urgency Musculoskeletal: Denies: Joint Pain, Joint Tenderness Skin: Denies: Rash Neurological: Denies: Focal weakness, Numbness, Tingling Psychiatric: Denies: Homicidal Ideations, Suicidal Ideations Hematologic/ Lymphatic: Denies: Easy Bruising, Easy Bleeding VTE Information - Inpt Only VTE Present on Admission: No VTE Mechan Device Prophylaxis: None VTE Pharm Prophylaxis ordered?: Yes Objective: GENERAL: cooperative HEENT: Atraumatic; EYES; Anicteric, Normal Conjunctiva NECK; supple, normal thyroid, RESPIRATORY: Diminished to auscultation CARDIOVASCULAR: Regular S1 S2, GI: Epigastric tenderness, normoactive bowel sounds, : No Renal angle tenderness; EXTREMITIES: No edema, no clubbing, MUSCULOSKELETAL: no muscle waisting NEURO: Awake; no lateralizing signs. SKIN: No Rash PSYCH; Flat affect - Physical Exam Vitals/I&O's: Vital Signs Temp Pulse Resp BP Pulse Ox 97.5 F L 71 16 136/83 H 99 01/01/21 09:04 01/01/21 11:03 01/01/21 11:03 01/01/21 09:04 01/01/21 11:03 Oxygen Delivery Method Room Air Weight: 72.5 kg Body Mass Index (BMI) 24.3 Intake and Output for Last 24 Hours 12/30/20 12/31/20 01/01/21 23:59 23:59 23:59 Intake Total 500 / 500 Balance 500 / 500 Laboratory Results 01/01/21 09:35: Urine Color Yellow, Urine Clarity Sl. Cloudy, Urine pH 5.0, Ur Specific [place] 1.030, Urine Protein 30 H, Urine Glucose (UA) Normal, Urine K etones 50 H, Urine Occult Blood 10 H, Urine Nitrite Negative, Urine Bilirubin 1 H, Urine Urobilinogen 1 H, Ur Leukocyte Esterase 100 H, Urine RBC 0-5 SEEN, Urine WBC 5-10 SEEN, Ur Squamous Epith Cells 5-10 SEEN, Urine Bacteria 1+, Urine Mucus 1+ 01/01/21 09:37: WBC 10.6, RBC 5.17, Hgb 16.0 H, Hct 45.5, MCV 88.0, MCH 30.9, MCHC 35.2, RDW Std Deviation 37.4, RDW Coeff of Ray 11.6, Plt Count 307, MPV 9.7, Immature Gran % (Auto) 0.400, Neut % (Auto) 58.3, Lymph % (Auto) 33.2, [place] % (Auto) 7.0, Eos % (Auto) 0.6, Baso % (Auto) 0.5, Absolute Neuts (auto) 6.2, Absolute Lymphs (auto) 3.53, Nucleated RBC % 0 01/01/21 09:37: Sodium 135 L, Potassium 3.0 L, Chloride 94 L, Carbon Dioxide 31.0, Anion Gap 10, BUN 22 H, Creatinine 1.85 H, Estim Creat Clear Calc 29.36, Est GFR (MDRD) Af Amer 35 L, Est GFR (MDRD) Non-Af 29 L, BUN/Creatinine Ratio 11.9, Glucose 169 H, Calcium 9.4, Total Bilirubin 1.20 H, AST 16, ALT 21, Alkaline Phosphatase 80, Total Protein 7.6, Albumin 4.0, Globulin 3.6, Albumin/Globulin Ratio 1.1, Lipase 122 01/01/21 09:37: Magnesium 1.7 Current Medications Potassium Acetate (Potassium Acetate 40 Meq/20 Ml Vial) 40 meq IV X1 ONE Stop: 01/01/21 11:06 Assessment/Plan All Active Problems (Last Reviewed 10/25/19 @ 11:[address] Johnny Kwon MD) Abdominal pain (Acute) H/O coronary artery bypass surgery (Resolved 01/29/03) 70-year-old lady presenting with abdominal pain with associated nausea and vomiting 1. Abdominal pain ?? Gastroduodenitis. (Patient has history of cyclical vomiting) imaging studies obtained on admission demonstrated Status post cholecystectomy. Persistent thickening of the gastric antrum extending into the first portion of the duodenum with mild increased markings in the surrounding peritoneal fat although this has improved as compared to prior study. Admitted to regular nursing floor for symptomatic management. Patient was also placed on PPI. If symptoms persist will consult general surgery for possible endoscopic evaluation prior to discharge 2. Acute kidney injury ?Secondary to dehydration managed with IV fluids with subsequent monitoring of electrolytes 3. Hypokalemia ?Corrected per protocol 4. Suspected cystitis ?Patient started on IV Rocephin cultures sent. 5. Diabetes mellitus type II -Placed on long acting insulin, Accu-Cheks a.c. and at bedtime and covered with sliding scale insulin 6. Hypertension - Blood pressure controlled, home medications continued with dose adjustment as needed 7.. History of renal cell carcinoma ?Status post partial right nephrectomy 8. Paroxysmal A. fib ?With previous due frequency ablation. Patient presented in sinus rhythm 9. Coronary artery disease ?Status post CABG in 2002 10. Chronic congestive heart failure with preserved ejection fraction ?Patient is on Lasix held in view of patient presented with acute kidney injury 11. DVT prophylaxis ?Lovenox OBSV E&M: [id number] Initial observation care L3
[2021-01-01 12:50] LABS: Bedside Glucose 136 mg/dL (70-110)
[2021-01-01] MEDS: 0.9% Saline Lock 10 ML Syringe IV (12:59)
[2021-01-01] MEDS: Ceftriaxone 1 GM/50 ML BAG IV (13:13)
[2021-01-01] MEDS: Potassium Chloride 10mEq/100mL 10 MEQ/100 ML IV.SOLN. 100 MEQ IV BOLUS ×4 (14:09→17:50)
[2021-01-01] MEDS: Metoprolol(XL)Succ 50 MG Tablet PO (14:16)
[2021-01-01] MEDS: Escitalopram Oxalate 20 MG Tablet PO (14:16)
[2021-01-01] MEDS: amLODIPine 10 MG Tablet PO (14:16)
[2021-01-01] MEDS: Losartan Potassium 100 MG Tablet PO (14:16)
[2021-01-01] MEDS: Ensure Clear 120 ML Liquid PO ×2 (14:46→21:09)
--- NOTE | 2021-01-01 15:31 | PCM.NTREPORT ---
Nutrition Therapy Report - History Nutrition Services has been consulted to:: Manage nutrient details of diet order Current diet / nutrition support order:: clear liquids, 120mL ensure clear 4x/day - Anthropometric Measurements Height:: 5 ft 9 in Weight:: 71.9 kg Body Mass Index (BMI):: 23.3 - Relevant Labs Relevant Labs:: Hgb 16.0 g/dL (12.0-15.0) H 01/01/21 09:37 Sodium 135 mmol/L (136-145) L 01/01/21 09:37 Potassium 3.0 mmol/L (3.5-5.1) L 01/01/21 09:37 Chloride 94 mmol/L (98-107) L 01/01/21 09:37 BUN 22 mg/dL (7-18) H 01/01/21 09:37 Creatinine 1.85 mg/dL (0.55-1.02) H 01/01/21 09:37 Est GFR (MDRD) Af Amer 35 mL/min (>60) L 01/01/21 09:37 Est GFR (MDRD) Non-Af 29 mL/min (>60) L 01/01/21 09:37 Glucose 169 mg/dL (74-106) H 01/01/21 09:37 Total Bilirubin 1.20 mg/dL (0.20-1.00) H 01/01/21 09:37 - Assessment Food / Nutrition-Related History:: Reports 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 Currently tolerating sips of clear liquids. States she has not had a BM for ~4 days but is unclear if its r/t inadeuqate PO intake. States wt was 177# 3 weeks ago, CBW 158.5#- 18.5#/10% is significant for malnutrition. 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 - Nutrition Intervention Nutrition Prescription:: [id number] calories/day (1.3xRMR). 58-68 g protein/day (0.8g/kg). 2150mL/day (30mL/kg) - Food / Nutrient Delivery Interventions Summary of nutrition intervention:: encouraged small, frequent sips of clear liquids as tolerated. Pt w/ no questions at this time. Nutrition support ordered as / adjusted to:: recommend advance as tolerated to transitional diet; continue ensure w/ medpass. - MNT Monitoring Further MNT monitoring and evaluation required?: Yes MNT Follow-up in:: 3-5 days
[2021-01-01] MEDS: Insulin Human 75/25 Kwickpen 22 UNIT SC (17:28)
[2021-01-01 17:31] LABS: Bedside Glucose 217 mg/dL (70-110)
[2021-01-01] MEDS: Pramipexole Di-HCl 0.5 MG Tablet 1.5 MG PO (20:57)
[2021-01-01] MEDS: Atorvastatin Calcium 80 MG Tablet PO (20:57)
[2021-01-02] VITALS (10 sets, daily range): BP systolic 86–113; BP diastolic 49–60; PULSE 69–80; RESP 15–18; TEMP 36.6–37; O2SAT 94–100
[2021-01-02 00:26] LABS: Bedside Glucose 100 mg/dL (70-110)
[2021-01-02 00:26] LABS: Bedside Glucose 54 mg/dL (70-110)
[2021-01-02] MEDS: Morphine 4 MG/ML Syringe IV ×2 (03:02→21:55)
[2021-01-02 05:55] LABS: Absolute Lymphocyte Count 2.99 X10^3/uL (0.83-4.51); Basophil# 0.05 X10^3/uL; Basophil% 0.6 % (0-1); Eosinophil# 0.14 X10^3/uL; Eosinophils% 1.6 % (0-5); Hematocrit 38.1 % (37-47); Hemoglobin 12.3 g/dL (12.0-15.0); Lymphocyte # 2.99 X10^3/ul (4.0); Lymphocyte % 34.1 % (19-41); Mean Corp Hgb Conc 32.3 g/dL (32-36); Mean Corpuscular Hgb 30.3 pg (27.0-32.0); Mean Corpuscular Volume 93.8 fL (81-99); Mean Platelet Vol. 9.6 fl (6.2-12.0); Monocyte# 0.59 X10^3/uL; Monocyte% 6.7 % (0-10); NRBC Flagged by Analyzer 0 % (0-5); Neutrophil # 4.96 X10^3/uL (2.7-7.7); Neutrophil % 56.7 % (47-70); Platelet Count 244 K/mm3 (150-450); RBC Distribution Width CV 11.9 % (11.6-14.6); RBC Distribution Width SD 41.3 fl (35.1-43.9); Red Blood Count 4.06 M/mm3 (4.2-5.4); White Blood Count 8.8 K/mm3 (4.4-11.0)
[2021-01-02 07:11] LABS: Bedside Glucose 126 mg/dL (70-110)
[2021-01-02 07:23] LABS: AST(SGOT) 63 U/L (15-37); Alanine Aminotransfer ALT/SGPT 45 U/L (13-56); Albumin, Serum 2.8 g/dL (3.2-5.0); Alkaline Phosphatase 75 U/L (45-117); Anion Gap 3 (5-15); BUN 20 mg/dL (7-18); BUN/Creat Ratio 13.7 RATIO (10-20); Bilirubin, Direct 0.16 mg/dL (0.00-0.30); Calcium,Total 7.6 mg/dL (8.5-10.1); Chloride 106 mmol/L (98-107); Creatinine, Serum 1.46 mg/dL (0.55-1.02); EST Glomerular Filtration Rate 38 mL/min (>60); Est Glom Filt Rate - Afr Amer 46 mL/min (>60); Estimated Creatinine Clearance 38.54 ml/min; Globulin 2.5 g/dL (2.2-4.2); Glucose 131 mg/dL (74-106); Magnesium 1.6 mg/dL (1.6-2.6); Phosphorus 3.4 mg/dL (2.5-4.9); Potassium 4.5 mmol/L (3.5-5.1); Protein, Total 5.3 g/dL (6.4-8.2); Sodium Level 138 mmol/L (136-145)
[2021-01-02] MEDS: Insulin Human 75/25 Kwickpen 22 UNIT SC ×2 (08:17→17:27)
[2021-01-02] MEDS: Tolterodine Tartrate 2 MG CAP.SA PO (10:00)
[2021-01-02] MEDS: Escitalopram Oxalate 20 MG Tablet PO (10:01)
[2021-01-02] MEDS: Enoxaparin 30 MG/0.3 ML Syringe SC (10:03)
[2021-01-02] MEDS: Pramipexole Di-HCl 0.5 MG Tablet 1.5 MG PO ×2 (10:03→21:52)
[2021-01-02] MEDS: Metoprolol(XL)Succ 50 MG Tablet PO (10:04)
[2021-01-02] MEDS: Ensure Clear 120 ML Liquid PO ×4 (10:13→21:50)
--- NOTE | 2021-01-02 10:46 | PN_ITS ---
Patient Problems: Active and Suspected Problems (Last Reviewed 01/01/21 @ 12:[address] Sudarshan Antunez MD) Abdominal pain (Acute) Reason for Visit: Abdominal pain Acute kidney injury Subjective: 70-year-old lady presenting with abdominal pain with associated nausea and vomiting and assessment of suspected gastroduodenitis made admitted to regular nursing floor for further management. Patient was also hypokalemic with acute kidney injury on admission. Objective: GENERAL: cooperative HEENT: Atraumatic; EYES; Anicteric, Normal Conjunctiva NECK; supple, normal thyroid, RESPIRATORY: Diminished to auscultation CARDIOVASCULAR: Regular S1 S2, GI: Epigastric tenderness, normoactive bowel sounds, : No Renal angle tenderness; EXTREMITIES: No edema, no clubbing, MUSCULOSKELETAL: no muscle waisting NEURO: Awake; no lateralizing signs. SKIN: No Rash PSYCH; Flat affect Vitals/I&O's: Vital Signs Temp Pulse Resp BP Pulse Ox 98.1 F 70 16 102/60 96 01/02/21 08:54 01/02/21 10:04 01/02/21 08:54 01/02/21 10:04 01/02/21 08:54 Oxygen Delivery Method Room Air Weight: 71.9 kg Body Mass Index (BMI) 23.3 Intake and Output for Last 24 Hours 12/31/20 01/01/21 01/02/21 23:59 23:59 23:59 Intake Total 3065 / 3065 2690.0 / 2690.0 Balance 3065 / 3065 2690.0 / 2690.0 Laboratory Results 01/01/21 12:46: POC Glucose 136 H 01/01/21 17:22: POC Glucose 217 H 01/01/21 20:55: POC Glucose 54 L 01/01/21 22:01: POC Glucose 100 01/02/21 05:25: WBC 8.8, RBC 4.06 L, Hgb 12.3, Hct 38.1, MCV 93.8 D, MCH 30.3, MCHC 32.3 D, RDW Std Deviation 41.3, RDW Coeff of Ray 11.9, Plt Count 244, MPV 9.6, Immature Gran % (Auto) 0.300, Neut % (Auto) 56.7, Lymph % (Auto) 34.1, [place] % (Auto) 6.7, Eos % (Auto) 1.6, Baso % (Auto) 0.6, Absolute Neuts (auto) 5.0, Absolute Lymphs (auto) 2.99, Nucleated RBC % 0 01/02/21 05:25: Sodium Cancelled, Potassium Cancelled, Chloride Cancelled, Carbon Dioxide Cancelled, Anion Gap Cancelled, BUN Cancelled, Creatinine Cancelled, Estim Creat Clear Calc Cancelled, Est GFR (MDRD) Af Amer Cancelled, Est GFR (MDRD) Non-Af Cancelled, BUN/Creatinine Ratio Cancelled, Glucose Cancelled, Calcium Cancelled, Phosphorus Cancelled, Magnesium Cancelled, Total Bilirubin Cancelled, Direct Bilirubin Cancelled, AST Cancelled, ALT Cancelled, Alkaline Phosphatase Cancelled, Total Protein Cancelled, Albumin Cancelled, Globulin Cancelled 01/02/21 06:31: POC Glucose 126 H 01/02/21 06:46: Sodium 138, Potassium 4.5, Chloride 106, Carbon Dioxide 29.0, Anion Gap 3 L, BUN 20 H, Creatinine 1.46 H, Estim Creat Clear Calc 38.54, Est GFR (MDRD) Af Amer 46 L, Est GFR (MDRD) Non-Af 38 L, BUN/Creatinine Ratio 13.7, Glucose 131 H, Calcium 7.6 L, Phosphorus 3.4, Magnesium 1.6, Total Bilirubin 0.40, Direct Bilirubin 0.16, AST 63 H, ALT 45, Alkaline Phosphatase 75, Total Protein 5.3 L, Albumin 2.8 L, Globulin 2.5 Current Medications Acetaminophen (Acetaminophen 325 Mg Tablet) 650 mg PO Q6H PRN PRN PRN Reason: Pain Score 1-10/Temp > 100.7 F Al Hydroxide/Mg Hydroxide (Mag Hydrox/Al Hydrox/Simeth 30 Ml Udc) 30 ml PO Q6H PRN PRN PRN Reason: Gastric Burning Albuterol Sulfate (Albuterol 2.5 Mg/3 Ml Vial.Neb.) 2.5 mg INHALATION Q2H PRN PRN PRN Reason: Shortness of Breath/Wheezing Amlodipine Besylate (Amlodipine 10 Mg Tablet) 10 mg PO DAILY [facility] Last Admin: 01/01/21 14:16 Dose: 10 mg Documented by: Atorvastatin Calcium (Atorvastatin Calcium 80 Mg Tablet) 80 mg PO DAILY@2200 [facility] Last Admin: 01/01/21 20:57 Dose: 80 mg Documented by: Dicyclomine HCl (Dicyclomine 10 Mg Capsule) 10 mg PO DAILY@0730 [facility] Last Admin: 01/02/21 07:06 Dose: Not Given Documented by: Enoxaparin Sodium (Enoxaparin 30 Mg/0.3 Ml Syringe) 30 mg SC DAILY [facility] Last Admin: 01/02/21 10:03 Dose: 30 mg Documented by: Escitalopram Oxalate (Escitalopram Oxalate 20 Mg Tablet) 20 mg PO DAILY [facility] Last Admin: 01/02/21 10:01 Dose: 20 mg Documented by: Guaifenesin (Guaifenesin 10 Ml Udc (200mg/10ml)) 20 ml PO Q4H PRN PRN PRN Reason: COUGH Potassium Chloride/Sodium Chloride () 1,000 mls @ 150 mls/hr IV .Q6H40M [facility] Stop: 01/02/21 21:31 Last Admin: 01/02/21 09:27 Dose: 150 mls/hr Documented by: Pantoprazole Sodium 40 mg/ (Sodium Chloride) 110 mls @ 330 mls/hr IV Q12 [facility] Last Admin: 01/02/21 10:14 Dose: 330 mls/hr Documented by: Sodium Chloride () 250 mls @ 15 mls/hr IV .[id number] PRN PRN Reason: Saline Flush Sodium Chloride () 250 mls @ 15 mls/hr IV .[id number] PRN PRN Reason: Additional IVPB Infusion Ceftriaxone Sodium (Rocephin) 1 gm in 50 mls @ 100 mls/hr IV Q24 [facility] Insulin Human Lispro (Insulin Lispro 100 Unit/Ml Insuln.Pen) 0 unit SC ACHS [facility]; Protocol Last Admin: 01/02/21 06:59 Dose: Not Given Documented by: Insulin Lispro Protam/Lispro Human (Insulin Human 75/25 [place]) 22 unit SC BIDCM [facility] Last Admin: 01/02/21 08:17 Dose: 22 u Documented by: Losartan Potassium (Losartan Potassium 100 Mg Tablet) 100 mg PO DAILY [facility] Last Admin: 01/01/21 14:16 Dose: 100 mg Documented by: Melatonin (Melatonin 3 Mg Tablet) 3 mg PO QHS PRN PRN PRN Reason: INSOMNIA Metoprolol Succinate (Metoprolol(Xl)Succ 50 Mg Tablet) 50 mg PO DAILY [facility] Last Admin: 01/02/21 10:04 Dose: 50 mg Documented by: Morphine Sulfate (Morphine 4 Mg/Ml Syringe) 4 mg IV Q3H PRN PRN PRN Reason: Pain Score 6-10 Last Admin: 01/02/21 03:02 Dose: 4 mg Documented by: Nutritional Formula (Lactose Free) (Ensure Clear 120 Ml Liquid) 120 ml PO 4X/DAY [facility] Last Admin: 01/02/21 10:13 Dose: 120 ml Documented by: Ondansetron HCl (Ondansetron 4 Mg/2 Ml Vial) 4 mg IV Q8H PRN PRN PRN Reason: NAUSEA/VOMITING Oxycodone HCl (Oxycodone 5 Mg Tablet) 10 mg PO Q4H PRN PRN PRN Reason: Pain Score 4-5 Pramipexole Dihydrochloride (Pramipexole Di-Hcl 0.5 Mg Tablet) 1.5 mg PO BID [facility] Last Admin: 01/02/21 10:03 Dose: 1.5 mg Documented by: Promethazine HCl (Promethazine 25 Mg Tablet) 25 mg PO Q6H PRN PRN PRN Reason: NAUSEA Promethazine HCl (Promethazine 25 Mg/Ml Syringe) 25 mg IM Q6H PRN PRN PRN Reason: Breakthrough nausea/vomiting Senna/Docusate Sodium (Senna/Docusate Sodium 1 Tablet) 2 tablet PO BID PRN PRN PRN Reason: Constipation Sodium Chloride (0.9% Saline Lock 10 Ml Syringe) 10 - 40 ml IV UD PRN PRN Reason: SALINE FLUSH Last Admin: 01/01/21 12:59 Dose: 10 ml Documented by: Tolterodine Tartrate (Tolterodine Tartrate 2 Mg Cap.Sa) 2 mg PO DAILY [facility] Last Admin: 01/02/21 10:00 Dose: 2 mg Documented by: Trazodone HCl (Trazodone 50 Mg Tablet) 50 mg PO DAILY [facility] STROKE Vital Signs/Narrative: Vital Signs Temp Pulse Resp BP Pulse Ox 01/02/21 10:04 70 102/60 01/02/21 08:54 98.1 F 70 16 102/60 96 01/02/21 08:04 95 01/02/21 08:00 98.1 F 69 18 99/54 L 100 Medical Necessity - Tobacco Use Smoking Status: Former smoker Assessment/Plan All Active Problems (Last Reviewed 01/01/21 @ 12:[address] Sudarshan Antunez MD) Abdominal pain (Acute) H/O coronary artery bypass surgery (Resolved 01/29/03) 70-year-old lady presenting with abdominal pain with associated nausea and vomiting 1. Abdominal pain ?? Gastroduodenitis. (Patient has history of cyclical vomiting) imaging studies obtained on admission demonstrated Status post cholecystectomy. Persistent thickening of the gastric antrum extending into the first portion of the duodenum with mild increased markings in the surrounding peritoneal fat although this has improved as compared to prior study. Admitted to regular nursing floor for symptomatic management. Patient was also placed on PPI. If symptoms persist will consult general surgery for possible endoscopic evaluation prior to discharge ?01/02/2021; patient admitted some improvement in symptoms 2. Acute kidney injury ?Secondary to dehydration managed with IV fluids with subsequent monitoring of electrolytes -01/02/2021; patient kidney function down to 1.4 from admission level of 1.8 3. Hypokalemia ?Corrected per protocol 4. Suspected cystitis ?Patient started on IV Rocephin cultures sent. 5. Diabetes mellitus type II -Placed on long acting insulin, Accu-Cheks a.c. and at bedtime and covered with sliding scale insulin 6. Hypertension - Blood pressure controlled, home medications continued with dose adjustment as needed 7.. History of renal cell carcinoma ?Status post partial right nephrectomy 8. Paroxysmal A. fib ?With previous due frequency ablation. Patient presented in sinus rhythm 9. Coronary artery disease ?Status post CABG in 2002 10. Chronic congestive heart failure with preserved ejection fraction ?Patient is on Lasix held in view of patient presented with acute kidney injury 11. DVT prophylaxis ?Lovenox OBSV E&M: 40062 Subsequent observation care L2
[2021-01-02] MEDS: Ceftriaxone 1 GM/50 ML BAG IV (10:57)
[2021-01-02 11:46] LABS: Bedside Glucose 96 mg/dL (70-110)
[2021-01-02] MEDS: 0.9% Normal Saline 1,000 ML 999 ML IV (14:59)
[2021-01-02] MEDS: oxyCODONE 5 MG Tablet 10 MG PO (15:20)
--- NOTE | 2021-01-02 16:05 | CASEMGMT ---
JULIA TOWNSEND completed RYAN form with patient. JULIA TOWNSEND explained RYAN form to patient, patient voiced understanding. Patient signed RYAN form and filed in chart. Patient provided with copy of signed RYAN form. Patient had no further questions or concerns at this time.
[2021-01-02 17:01] LABS: Bedside Glucose 149 mg/dL (70-110)
[2021-01-02] MEDS: Atorvastatin Calcium 80 MG Tablet PO (21:51)
[2021-01-02] MEDS: traZODone 50 MG Tablet PO (21:51)
[2021-01-02] MEDS: proMETHazine 25 MG Tablet PO (22:11)
[2021-01-02 22:35] LABS: Bedside Glucose 71 mg/dL (70-110)
[2021-01-03 04:20] VITALS: BP 110/45; PULSE 66; RESP 16; TEMP 36.7; O2SAT 98
[2021-01-03 05:59] LABS: Absolute Lymphocyte Count 1.86 X10^3/uL (0.83-4.51); Absolute Neutrophil Count 3.9 X10^3/uL (2.0-7.7); Basophil# 0.03 X10^3/uL; Basophil% 0.5 % (0-1); Eosinophil# 0.13 X10^3/uL; Eosinophils% 2.1 % (0-5); Hematocrit 35.2 % (37-47); Hemoglobin 11.2 g/dL (12.0-15.0); Lymphocyte # 1.86 X10^3/ul (4.0); Lymphocyte % 29.4 % (19-41); Mean Corp Hgb Conc 31.8 g/dL (32-36); Mean Corpuscular Hgb 30.6 pg (27.0-32.0); Mean Corpuscular Volume 96.2 fL (81-99); Monocyte# 0.37 X10^3/uL; Monocyte% 5.8 % (0-10); NRBC Flagged by Analyzer 0 % (0-5); Neutrophil # 3.91 X10^3/uL (2.7-7.7); Neutrophil % 61.7 % (47-70); Platelet Count 166 K/mm3 (150-450); RBC Distribution Width CV 11.8 % (11.6-14.6); RBC Distribution Width SD 41.5 fl (35.1-43.9); Red Blood Count 3.66 M/mm3 (4.2-5.4); White Blood Count 6.3 K/mm3 (4.4-11.0)
[2021-01-03 06:31] LABS: Anion Gap 4 (5-15); BUN 17 mg/dL (7-18); BUN/Creat Ratio 13.8 RATIO (10-20); Calcium,Total 7.3 mg/dL (8.5-10.1); Chloride 111 mmol/L (98-107); Creatinine, Serum 1.23 mg/dL (0.55-1.02); EST Glomerular Filtration Rate 46 mL/min (>60); Est Glom Filt Rate - Afr Amer 56 mL/min (>60); Estimated Creatinine Clearance 45.75 ml/min; Glucose 121 mg/dL (74-106); Potassium 4.8 mmol/L (3.5-5.1); Sodium Level 140 mmol/L (136-145)
[2021-01-03 06:56] LABS: Bedside Glucose 129 mg/dL (70-110)
[2021-01-03 07:26] VITALS: O2SAT 98
--- NOTE | 2021-01-03 08:14 | PCM.DC ---
- Discharge Diagnoses Current Active Problems: Current Active and Chronic Problems (Last Reviewed 01/01/21 @ 12:[address] Sudarshan Antunez MD) Abdominal pain (Acute) Paroxysmal atrial fibrillation (Chronic) Failed DCCV; failed drug therapy; radiofrequency ablation; Persistent atrial fibrillation (Chronic) PVI w/ RFA Atherosclerosis of coronary artery of [place] heart without angina pectoris (Chronic) Essential (primary) hypertension (Chronic) Hypomagnesemia (Chronic) Peripheral vascular occlusive disease (Chronic) Renal cell carcinoma (Chronic) You will use the following diet at home:: Calorie/Carbohydrate Controlled (specify 1200, 1400, etc) Your food should be the consistency of: Regular Discharge Activity: Return to Normal Activity Allergies/Adverse Reactions: Allergies diphenhydramine HCl [From Benadryl] Adverse Reaction (Verified 01/01/21 12:28) restless legs dofetilide Adverse Reaction (Verified 01/01/21 09:04) LONG QT Long QT secondary to chronic hypomagnesemia metoclopramide [From Reglan] Adverse Reaction (Verified 01/01/21 12:28) restless legs Medications to take at Discharge Atorvastatin Calcium [Lipitor] 80 mg PO DAILY 07/31/17 Insulin NPH Hum/Reg Insulin Hm [Humulin 70-30 Vial] 22 unit SQ BID 07/31/17 Ropinirole HCl [Requip Xl] 5 mg PO BID 07/31/17 Furosemide [Lasix] 20 mg PO DAILY 01/10/19 proMETHazine tablet [Phenergan tablet] 25 mg PO Q6H PRN PRN #10 tab 09/09/19 escitalopram oxalate 20 mg tablet 20 mg PO DAILY tab 10/24/19 ondansetron HCl 4 mg tablet 4 mg PO BID-TID PRN 10/24/19 oxybutynin chloride 10 mg tablet,extended release 24 hr 10 mg PO DAILY 10/24/19 Aspirin 1 tab PO DAILY 01/01/21 Dicyclomine HCl 10 mg PO DAILY 01/01/21 Trazodone HCl 50 mg PO QHS 01/01/21 Losartan Potassium 25 mg PO DAILY #60 tab 01/03/21 Metoprolol(XL)Succ [Toprol Xl (Beta Zakia)] 25 mg PO DAILY #60 tab 01/03/21 Pantoprazole Sodium [Protonix] 40 mg PO DAILY #60 tab 01/03/21 The following prescriptions were given: Losartan Potassium 25 mg PO DAILY #60 tab Transmission Status: Received by [facility] Pantoprazole Sodium [Protonix] 40 mg PO DAILY #60 tab Transmission Status: Received by [facility] Metoprolol(XL)Succ [Toprol Xl (Beta Zakia)] 25 mg PO DAILY #60 tab Transmission Status: Received by [facility] Primary Care Physician: Tae Banegas DO [Primary Care Provider] - Please follow up with your Primary Care Physician in: in 1 week Test Results: Test results from this visit will be discussed in further detail at your follow-up appointment, if applicable. Proposed Discharge Date: 01/03/21
--- NOTE | 2021-01-03 08:16 | DS.PCM_ITS ---
Discharge Date and Diagnosis - Problem List Patient Problems: Active and Suspected Problems (Last Reviewed 01/01/21 @ 12:[address] Sudarshan Antunez MD) Abdominal pain (Acute) Date of Admission: 01/01/21 Date of Discharge: 01/03/21 - Primary Discharge Diagnosis Acute Problems: Active Problems (Last Reviewed 01/01/21 @ 12:[address] Sudarshan Antunez MD) Abdominal pain (Acute) - Secondary Discharge Diagnosis Chronic Problems: Chronic Problems (Last Reviewed 01/01/21 @ 12:[address] Sudarshan Antunez MD) Paroxysmal atrial fibrillation (Chronic) Failed DCCV; failed drug therapy; radiofrequency ablation; Persistent atrial fibrillation (Chronic) PVI w/ RFA Atherosclerosis of coronary artery of [place] heart without angina pectoris (Chronic) Essential (primary) hypertension (Chronic) Hypomagnesemia (Chronic) Peripheral vascular occlusive disease (Chronic) Renal cell carcinoma (Chronic) Hospital Course and Treatment Operations: None Summary of Care Provided: 70-year-old lady presenting with abdominal pain with associated nausea and vomiting 1. Abdominal pain ?? Gastroduodenitis. (Patient has history of cyclical vomiting) imaging studies obtained on admission demonstrated Status post cholecystectomy. Persistent thickening of the gastric antrum extending into the first portion of the duodenum with mild increased markings in the surrounding peritoneal fat although this has improved as compared to prior study. Admitted to regular nursing floor for symptomatic management. Patient was also placed on PPI. If symptoms persist will consult general surgery for possible endoscopic evaluation prior to discharge ?01/02/2021; patient admitted some improvement in symptoms 2. Acute kidney injury ?Secondary to dehydration managed with IV fluids with subsequent monitoring of electrolytes -01/02/2021; patient kidney function down to 1.4 from admission level of 1.8 -01/03/2021 kidney function improved creatinine at the time of discharge 1.23 3. Hypokalemia ?Corrected per protocol 4. Suspected cystitis ?Patient started on IV Rocephin cultures sent. 5. Diabetes mellitus type II -Placed on long acting insulin, Accu-Cheks a.c. and at bedtime and covered with sliding scale insulin 6. Hypertension -Blood pressure was relatively low during her hospital stay resulting in adjustment of patient antihypertensive regimen. Patient was on amlodipine this was discontinued, patient was on losartan 100 mg daily this was decreased to 25 mg daily on discharge, her metoprolol dose was decreased from 50 mg to 25 mg daily. New prescriptions was written. 7.. History of renal cell carcinoma ?Status post partial right nephrectomy 8. Paroxysmal A. fib ?With previous due frequency ablation. Patient presented in sinus rhythm 9. Coronary artery disease ?Status post CABG in 2002 10. Chronic congestive heart failure with preserved ejection fraction ?Patient is on Lasix held in view of patient presented with acute kidney injury 11. DVT prophylaxis ?Lovenox Patient Problems: Active and Suspected Problems (Last Reviewed 01/01/21 @ 12:[address] Sudarshan Antunez MD) Abdominal pain (Acute) Objective: GENERAL: cooperative HEENT: Atraumatic; EYES; Anicteric, Normal Conjunctiva NECK; supple, normal thyroid, RESPIRATORY: Diminished to auscultation CARDIOVASCULAR: Regular S1 S2, GI: Epigastric tenderness, normoactive bowel sounds, : No Renal angle tenderness; EXTREMITIES: No edema, no clubbing, MUSCULOSKELETAL: no muscle waisting NEURO: Awake; no lateralizing signs. SKIN: No Rash PSYCH; Flat affect - Physical Exam Vitals/I&O's: Vital Signs Temp Pulse Resp BP Pulse Ox 98.1 F 66 16 110/45 L 98 01/03/21 04:20 01/03/21 04:20 01/03/21 04:20 01/03/21 04:20 01/03/21 07:26 Oxygen Delivery Method Room Air Weight: 71.9 kg Body Mass Index (BMI) 23.3 Intake and Output for Last 24 Hours 01/01/21 01/02/21 01/03/21 23:59 23:59 23:59 Intake Total 3065 / 3065 6860.0 / 7160.0 [id number] Balance 3065 / 3065 6860.0 / 7160.0 1899 Laboratory Results 01/02/21 11:08: POC Glucose 96 01/02/21 16:56: POC Glucose 149 H 01/02/21 22:00: POC Glucose 71 01/03/21 05:30: WBC 6.3, RBC 3.66 L, Hgb 11.2 L, Hct 35.2 L, MCV 96.2, MCH 30.6, MCHC 31.8 L, RDW Std Deviation 41.5, RDW Coeff of Ray 11.8, Plt Count 166, MPV 10.0, Immature Gran % (Auto) 0.500, Neut % (Auto) 61.7, Lymph % (Auto) 29.4, [place] % (Auto) 5.8, Eos % (Auto) 2.1, Baso % (Auto) 0.5, Absolute Neuts (auto) 3.9, Absolute Lymphs (auto) 1.86, Nucleated RBC % 0 01/03/21 05:30: Sodium 140, Potassium 4.8, Chloride 111 H, Carbon Dioxide 25.0, Anion Gap 4 L, BUN 17, Creatinine 1.23 H, Estim Creat Clear Calc 45.75, Est GFR (MDRD) Af Amer 56 L, Est GFR (MDRD) Non-Af 46 L, BUN/Creatinine Ratio 13.8, Glucose 121 H, Calcium 7.3 L 01/03/21 06:25: POC Glucose 129 H Current Medications Acetaminophen (Acetaminophen 325 Mg Tablet) 650 mg PO Q6H PRN PRN PRN Reason: Pain Score 1-10/Temp > 100.7 F Al Hydroxide/Mg Hydroxide (Mag Hydrox/Al Hydrox/Simeth 30 Ml Udc) 30 ml PO Q6H PRN PRN PRN Reason: Gastric Burning Albuterol Sulfate (Albuterol 2.5 Mg/3 Ml Vial.Neb.) 2.5 mg INHALATION Q2H PRN PRN PRN Reason: Shortness of Breath/Wheezing Atorvastatin Calcium (Atorvastatin Calcium 80 Mg Tablet) 80 mg PO DAILY@2200 [facility] Last Admin: 01/02/21 21:51 Dose: 80 mg Documented by: Dicyclomine HCl (Dicyclomine 10 Mg Capsule) 10 mg PO DAILY@0730 [facility] Last Admin: 01/03/21 06:28 Dose: Not Given Documented by: Enoxaparin Sodium (Enoxaparin 30 Mg/0.3 Ml Syringe) 30 mg SC DAILY [facility] Last Admin: 01/02/21 10:03 Dose: 30 mg Documented by: Escitalopram Oxalate (Escitalopram Oxalate 20 Mg Tablet) 20 mg PO DAILY [facility] Last Admin: 01/02/21 10:01 Dose: 20 mg Documented by: Guaifenesin (Guaifenesin 10 Ml Udc (200mg/10ml)) 20 ml PO Q4H PRN PRN PRN Reason: COUGH Pantoprazole Sodium 40 mg/ (Sodium Chloride) 110 mls @ 330 mls/hr IV Q12 [facility] Last Infusion: 01/02/21 22:36 Dose: Infused Documented by: Sodium Chloride () 250 mls @ 15 mls/hr IV .[id number] PRN PRN Reason: Saline Flush Sodium Chloride () 250 mls @ 15 mls/hr IV .[id number] PRN PRN Reason: Additional IVPB Infusion Ceftriaxone Sodium (Rocephin) 1 gm in 50 mls @ 100 mls/hr IV Q24 [facility] Last Infusion: 01/02/21 11:30 Dose: Infused Documented by: Insulin Human Lispro (Insulin Lispro 100 Unit/Ml Insuln.Pen) 0 unit SC ACHS [facility]; Protocol Last Admin: 01/03/21 06:27 Dose: Not Given Documented by: Insulin Lispro Protam/Lispro Human (Insulin Human 75/25 [place]) [facility] Last Admin: 01/02/21 17:27 Dose: 22 u Documented by: Melatonin (Melatonin 3 Mg Tablet) 3 mg PO QHS PRN PRN PRN Reason: INSOMNIA Morphine Sulfate (Morphine 4 Mg/Ml Syringe) 4 mg IV Q3H PRN PRN PRN Reason: Pain Score 6-10 Last Admin: 01/02/21 21:55 Dose: 4 mg Documented by: Nutritional Formula (Lactose Free) (Ensure Clear 120 Ml Liquid) 120 ml PO 4X/DAY [facility] Last Admin: 01/02/21 21:50 Dose: 120 ml Documented by: Ondansetron HCl (Ondansetron 4 Mg/2 Ml Vial) 4 mg IV Q8H PRN PRN PRN Reason: NAUSEA/VOMITING Oxycodone HCl (Oxycodone 5 Mg Tablet) 10 mg PO Q4H PRN PRN PRN Reason: Pain Score 4-5 Last Admin: 01/02/21 15:20 Dose: 10 mg Documented by: Pramipexole Dihydrochloride (Pramipexole Di-Hcl 0.5 Mg Tablet) 1.5 mg PO BID [facility] Last Admin: 01/02/21 21:52 Dose: 1.5 mg Documented by: Promethazine HCl (Promethazine 25 Mg Tablet) 25 mg PO Q6H PRN PRN PRN Reason: NAUSEA Last Admin: 01/02/21 22:11 Dose: 25 mg Documented by: Promethazine HCl (Promethazine 25 Mg/Ml Syringe) 25 mg IM Q6H PRN PRN PRN Reason: Breakthrough nausea/vomiting Senna/Docusate Sodium (Senna/Docusate Sodium 1 Tablet) 2 tablet PO BID PRN PRN PRN Reason: Constipation Sodium Chloride (0.9% Saline Lock 10 Ml Syringe) 10 - 40 ml IV UD PRN PRN Reason: SALINE FLUSH Last Admin: 01/01/21 12:59 Dose: 10 ml Documented by: Tolterodine Tartrate (Tolterodine Tartrate 2 Mg Cap.Sa) 2 mg PO DAILY [facility] Last Admin: 01/02/21 10:00 Dose: 2 mg Documented by: Trazodone HCl (Trazodone 50 Mg Tablet) 50 mg PO [facility] Last Admin: 01/02/21 21:51 Dose: 50 mg Documented by: Discharge Diet: 1800 Calorie Control Diet Discharge Activity: Return to Normal Activity Home Medications: Medications to take at Discharge Atorvastatin Calcium [Lipitor] 80 mg PO DAILY 07/31/17 Insulin NPH Hum/Reg Insulin Hm [Humulin 70-30 Vial] 22 unit SQ BID 07/31/17 Ropinirole HCl [Requip Xl] 5 mg PO BID 07/31/17 Furosemide [Lasix] 20 mg PO DAILY 01/10/19 proMETHazine tablet [Phenergan tablet] 25 mg PO Q6H PRN PRN #10 tab 09/09/19 escitalopram oxalate 20 mg tablet 20 mg PO DAILY tab 10/24/19 ondansetron HCl 4 mg tablet 4 mg PO BID-TID PRN 10/24/19 oxybutynin chloride 10 mg tablet,extended release 24 hr 10 mg PO DAILY 10/24/19 Aspirin 1 tab PO DAILY 01/01/21 Dicyclomine HCl 10 mg PO DAILY 01/01/21 Trazodone HCl 50 mg PO QHS 01/01/21 Losartan Potassium 25 mg PO DAILY #60 tab 01/03/21 Metoprolol(XL)Succ [Toprol Xl (Beta Z[place])] 25 mg PO DAILY #60 tab 01/03/21 Pantoprazole Sodium [Protonix] 40 mg PO DAILY #60 tab 01/03/21 Following Prescriptions Were Given to Patient: Losartan Potassium 25 mg PO DAILY #60 tab Transmission Status: Received by [facility] Pantoprazole Sodium [Protonix] 40 mg PO DAILY #60 tab Transmission Status: Received by [facility] Metoprolol(XL)Succ [Toprol Xl (Beta Zakia)] 25 mg PO DAILY #60 tab Transmission Status: Received by [facility] Primary Care Physician: Tae Banegas DO [Primary Care Provider] - Please follow up with your Primary Care Physician in: in 1-2 weeks Disposition: Home Minutes spent on discharge:: 35 Patient Condition:: Stable Medical Necessity - Tobacco Use Smoking Status: Former smoker Meaningful Use Info Meaningful Use Diagnoses (Choose all that apply): None applicable Inpatient E&M: 38126 Disch Hosp
[2021-01-03] MEDS: proMETHazine 25 MG Tablet PO (08:22)
[2021-01-03] MEDS: Morphine 4 MG/ML Syringe IV (08:22)
[2021-01-03 08:30] VITALS: BP 149/64; PULSE 75; RESP 20; TEMP 36.6; O2SAT 99
[2021-01-03] MEDS: Tolterodine Tartrate 2 MG CAP.SA PO (10:14)
[2021-01-03] MEDS: Pramipexole Di-HCl 0.5 MG Tablet 1.5 MG PO (10:14)
[2021-01-03] MEDS: Ensure Clear 120 ML Liquid PO (10:15)
[2021-01-03] MEDS: Escitalopram Oxalate 20 MG Tablet PO (10:15)
[2021-01-03] MEDS: Enoxaparin 30 MG/0.3 ML Syringe SC (10:16)
[2021-01-03 10:45] VITALS: BP 105/47; PULSE 75; RESP 16; TEMP 36.3; O2SAT 96
[2021-01-03] MEDS: Ceftriaxone 1 GM/50 ML BAG IV (11:20)
[2021-01-03 11:31] LABS: Bedside Glucose 187 mg/dL (70-110)
[2021-01-03] MEDS: Insulin Lispro 100 UNIT/ML INSULN.PEN SC (11:34)
--- NOTE | 2021-01-03 12:09 | PHA.DC.MC ---
Pharmacy Service has performed discharge medication reconciliation and counseling for this patient. The patient was counseled on the following discharge medications and changes in medications for homegoing were reviewed. 1. PROTONIX 2. LOSARTAN 3. TOPROL XL The Reason for Use, instructions for use, and potential side effects were reviewed for all new medications. The patient's questions regarding all of their medications were answered. The patient was able to verbally demonstrate an understanding of their discharge medications. Home Medications Atorvastatin Calcium [Lipitor] 80 mg PO DAILY 07/31/17 Insulin NPH Hum/Reg Insulin Hm [Humulin 70-30 Vial] 22 unit SQ BID 07/31/17 Ropinirole HCl [Requip Xl] 5 mg PO BID 07/31/17 Furosemide [Lasix] 20 mg PO DAILY 01/10/19 proMETHazine tablet [Phenergan tablet] 25 mg PO Q6H PRN PRN #10 tab 09/09/19 escitalopram oxalate 20 mg tablet 20 mg PO DAILY tab 10/24/19 ondansetron HCl 4 mg tablet 4 mg PO BID-TID PRN 10/24/19 oxybutynin chloride 10 mg tablet,extended release 24 hr 10 mg PO DAILY 10/24/19 Aspirin 1 tab PO DAILY 01/01/21 Dicyclomine HCl 10 mg PO DAILY 01/01/21 Trazodone HCl 50 mg PO QHS 01/01/21 Losartan Potassium 25 mg PO DAILY #60 tab 01/03/21 Metoprolol(XL)Succ [Toprol Xl (Beta Zakia)] 25 mg PO DAILY #60 tab 01/03/21 Pantoprazole Sodium [Protonix] 40 mg PO DAILY #60 tab 01/03/21 The patient's discharge medication list was reviewed for discrepancies and discrepancies were resolved.
[2021-01-03 12:52] VITALS: BP 124/74; PULSE 84; RESP 18; TEMP 36.9; O2SAT 98
== END 2021-01-03 12:57 | disposition home or self-care (01) ==
LOC: ED 11:29 → MS3 11:41
PROVIDERS: Admitting Provider Internal Medicine; Emergency Provider Student in an Organized Health Care Education/Training Program; PCP Student in an Organized Health Care Education/Training Program; Visit Provider Internal Medicine
DX: R10.9 Unspecified abdominal pain (principal); K59.00 Constipation, unspecified; N17.9 Acute kidney failure, unspecified; R11.15 Cyclical vomiting syndrome unrelated to migraine; I25.10 Atherosclerotic heart disease of native coronary artery without angina pectoris; I13.0 Hypertensive heart and chronic kidney disease with heart failure and stage 1 through stage 4 chronic kidney disease, or unspecified chronic kidney disease; N18.30 Chronic kidney disease, stage 3 unspecified; I50.32 Chronic diastolic (congestive) heart failure; E87.6 Hypokalemia; I48.19 Other persistent atrial fibrillation; E11.22 Type 2 diabetes mellitus with diabetic chronic kidney disease; E11.42 Type 2 diabetes mellitus with diabetic polyneuropathy; K21.9 Gastro-esophageal reflux disease without esophagitis; J44.9 Chronic obstructive pulmonary disease, unspecified; F41.9 Anxiety disorder, unspecified; Z85.528 Personal history of other malignant neoplasm of kidney; Z95.1 Presence of aortocoronary bypass graft; Z79.899 Other long term (current) drug therapy; Z79.4 Long term (current) use of insulin; Z79.82 Long term (current) use of aspirin; Z87.891 Personal history of nicotine dependence; Z90.5 Acquired absence of kidney; E86.0 Dehydration
CPT/HCPCS: 36415; 74177; 80048; 80053; 80076; 81001; 82962; 83690; 83735; 84100; 85025; 96361; 96365; 96366; 96367; 96372; 96375; 96376; 97802; 99218; 99251; 99285; J7030; J7040; Q9967; A4216; G0378; G0463; J2405

== ENCOUNTER 2021-01-04 11:14 | Observation (INO) | payer MEDICARE, SELFPAY ==
[2021-01-01 15:49] VITALS: BMI 23.3
[2021-01-04 11:15] VITALS: BP 183/95; PULSE 93; RESP 18; TEMP 36.8; O2SAT 100; BMI 27.1
--- NOTE | 2021-01-04 11:25 | EKG12_ITS ---
Test Reason : LALY Blood Pressure : / mmHG Vent. Rate : 081 BPM Atrial Rate : 081 BPM P-R Int : 140 ms QRS Dur : 082 ms QT Int : 418 ms P-R-T Axes : 079 066 039 degrees QTc Int : 485 ms Sinus rhythm with marked sinus arrhythmia Otherwise normal ECG Confirmed by REVA HUMPHREY, MARQUES ([id number]), news video editor MIRANDA MCLEAN ([id number]) on 01/06/2021 11:52:13 A M Referred By: LESLY Confirmed By:SOL ARDON MD
--- NOTE | 2021-01-04 11:26 | RAD_ITS ---
STUDY: X-RAY - ABDOMEN/PELVIS REASON FOR EXAM: Female, 70 years old. ABD PAIN X 1 WEEK, CONSTIPATION X 4 DAYS -- HAD ABD CT SCAN 3 DAYS AGO FOR SAME TECHNIQUE: Single AP view of the abdomen / pelvis. COMPARISON: None. FINDINGS: Normal visualized lung bases. There is an unremarkable bowel gas pattern. The visualized liver, spleen and kidneys are grossly normal in size and morphology. Normal soft tissue structures. Normal visualized osseous structures. RAD/Abdomen Single View IMPRESSION: Normal x-ray examination of the abdomen and pelvis. Electronically Signed: Marvin Tabares MD at 12:04 EST Tel , Service support ,
--- NOTE | 2021-01-04 11:27 | ED.DCSUM_ITS ---
- ER Visit Summary Date of Service: 01/04/21 Chief Complaint: [Abdominal pain] History of Present Illness: The patient is a 70 F [presents to the emergency department complaint of abdominal pain that she said for about a week. Patient states that she was recently admitted for same and discharged yesterday. During her admission she had a CAT scan of her abdomen pelvis that was essentially unremarkable other than some inflammatory changes around area of duodenum which apparently appeared improved compared to prior study. Patient states that she has had severe pain since being discharged. She has had nausea and vomiting and is vomited bile x2 today. She denies fever. She does describe some dysuria as well. Patient's had prior cholecystectomy and prior hysterectomy. Patient's had prior CABG. She denies any chest pain or shortness of breath.] Physical Examination: [HEENT-PERRLA, EOMI. Cranial nerves II through XII grossly intact. TMs clear. Mucous membranes moist. No adenopathy. Cardiovascular-regular rate and rhythm without murmur or ectopy Lungs-clear to auscultation, chest wall stable without crepitus or subcu emphysema Abdomen-normoactive bowel sounds, soft. Patient has diffuse tenderness to the epigastric region and right upper quadrant. There is no rebound, rigidity, or peritoneal signs. Extremities-intact ?4, normal range of motion, normal pulses, atraumatic] Test Results: [CBC with differential obtained showed a white count of 8.4, hemoglobin 15, hematocrit 43.5, platelets 216. Chemistries unremarkable. Lipase was 90. Troponin less than 0.015. 1 view KUB obtained interpreted by myself as large amount of stool throughout the colon without any evidence of obstruction or perforation. Radiology in agreement. Urinalysis ordered and pending. She did have slightly elevated LFTs which is new compared to her last visit. Emergency Department Course and Treatment: [IV line established on arrival. Patient was medicated with morphine and Zofran.] Treatment Plan: [Patient case was discussed with hospitalist Dr. Sudarshan Antunez who will admit patient] Disposition: [Admit] Impression: [Intractable abdominal pain Vomiting Constipation] This note was generated with [employer] dictation software. It may contain incorrect words, spelling, and punctuation that were not noted in review of the chart prior to signing ED Disposition - Plan for ED Patient: Referrals: Tae Banegas DO [Primary Care Provider] -
[2021-01-04] MEDS: Morphine 4 MG/ML Syringe IV ×3 (11:33→22:24)
[2021-01-04] MEDS: Ondansetron 4 MG/2 ML Vial IV ×2 (11:33→15:21)
[2021-01-04] MEDS: 0.9% Normal Saline 1,000 ML 125 ML IV ×2 (11:33→17:01)
[2021-01-04 11:35] LABS: Absolute Lymphocyte Count 2.19 X10^3/uL (0.83-4.51); Absolute Neutrophil Count 5.6 X10^3/uL (2.0-7.7); Basophil# 0.04 X10^3/uL; Basophil% 0.5 % (0-1); Eosinophil# 0.06 X10^3/uL; Eosinophils% 0.7 % (0-5); Hematocrit 43.5 % (37-47); Hemoglobin 15.1 g/dL (12.0-15.0); Lymphocyte # 2.19 X10^3/ul (4.0); Mean Corp Hgb Conc 34.7 g/dL (32-36); Mean Corpuscular Hgb 30.8 pg (27.0-32.0); Mean Corpuscular Volume 88.8 fL (81-99); Mean Platelet Vol. 9.8 fl (6.2-12.0); Monocyte# 0.47 X10^3/uL; Monocyte% 5.6 % (0-10); NRBC Flagged by Analyzer 0 % (0-5); Neutrophil # 5.62 X10^3/uL (2.7-7.7); Neutrophil % 66.8 % (47-70); Platelet Count 216 K/mm3 (150-450); RBC Distribution Width CV 11.5 % (11.6-14.6); White Blood Count 8.4 K/mm3 (4.4-11.0)
[2021-01-04 12:03] LABS: AST(SGOT) 46 U/L (15-37); Alanine Aminotransfer ALT/SGPT 64 U/L (13-56); Albumin, Serum 3.6 g/dL (3.2-5.0); Alkaline Phosphatase 81 U/L (45-117); Anion Gap 8 (5-15); BUN 8 mg/dL (7-18); BUN/Creat Ratio 7.8 RATIO (10-20); Calcium,Total 8.8 mg/dL (8.5-10.1); Chloride 103 mmol/L (98-107); Creatinine, Serum 1.03 mg/dL (0.55-1.02); EST Glomerular Filtration Rate 57 mL/min (>60); Est Glom Filt Rate - Afr Amer 68 mL/min (>60); Estimated Creatinine Clearance 52.73 ml/min; Globulin 3.6 g/dL (2.2-4.2); Glucose 142 mg/dL (74-106); Lipase 90 U/L (73-393); Potassium 4.3 mmol/L (3.5-5.1); Protein, Total 7.2 g/dL (6.4-8.2); Sodium Level 136 mmol/L (136-145)
[2021-01-04 12:20] LABS: Lactic Acid 1.9 mmol/L (0.4-1.9)
--- NOTE | 2021-01-04 12:53 | HP.PCM_ITS ---
Problem List (1) Abdominal pain Status: Acute Qualifiers: Abdominal location: epigastric Qualified Code(s): R10.13 - Epigastric pain (2) Paroxysmal atrial fibrillation Status: Chronic Comment: Failed DCCV; failed drug therapy; radiofrequency ablation; (3) Persistent atrial fibrillation Status: Chronic Comment: PVI w/ RFA (4) Atherosclerosis of coronary artery of [place] heart without angina pectoris Status: Chronic Qualifiers: Coronary Disease-Associated Artery/Lesion type: [place] artery Qualified Code(s): I25.10 - Atherosclerotic heart disease of [place] coronary artery without angina pectoris (5) H/O coronary artery bypass surgery Status: Resolved Comment: CABG x 2 FAIR-LAD, SVG-RPDA 01/29/2003 (6) Essential (primary) hypertension Status: Chronic (7) Hypomagnesemia Status: Chronic (8) Peripheral vascular occlusive disease Status: Chronic (9) Renal cell carcinoma Status: Chronic History of Present Illness Date of Admission: 01/04/21 Chief Complaint: Pain, nausea and vomiting The patient is a 70 year old F history of cyclical vomiting recently discharged from the hospital following a 2-day stay who presented with worsening abdominal pain and intractable nausea and vomiting. Per patient she is not been able to hold anything down following her discharge. Presented to the emergency department. Decision was made to readmit patient for symptomatic treatment Past Medical History Past Medical History (Chronic Problems): Chronic Problems (Last Reviewed 01/01/21 @ 12:[address] Sudarshan Antunez MD) Paroxysmal atrial fibrillation (Chronic) Failed DCCV; failed drug therapy; radiofrequency ablation; Persistent atrial fibrillation (Chronic) PVI w/ RFA Atherosclerosis of coronary artery of [place] heart without angina pectoris (Chronic) Essential (primary) hypertension (Chronic) Hypomagnesemia (Chronic) Peripheral vascular occlusive disease (Chronic) Renal cell carcinoma (Chronic) Medical History: Medical History (Last Reviewed 01/04/21 @ 13:[address] Sudarshan Antunez MD) Persistent atrial fibrillation (Chronic) I48.19 PVI w/ RFA Atherosclerosis of coronary artery of [place] heart without angina pectoris (Chronic) I25.10 Essential (primary) hypertension (Chronic) I10 Hypomagnesemia (Chronic) E83.42 Peripheral vascular occlusive disease (Chronic) I73.9 Renal cell carcinoma (Chronic) C64.9 Anxiety F41.9 Chronic vomiting R11.10 Gastro-esophageal reflux disease without esophagitis K21.9 Mild chronic obstructive pulmonary disease J44.9 NPDR (nonproliferative diabetic retinopathy) E11.3299 Peripheral neuropathy G62.9 Type II diabetes mellitus E11.9 Chronic kidney disease, stage 3 N18.3 Allergies diphenhydramine HCl [From Benadryl] Adverse Reaction (Verified 01/04/21 11:19) restless legs dofetilide Adverse Reaction (Verified 01/04/21 11:19) LONG QT Long QT secondary to chronic hypomagnesemia metoclopramide [From Reglan] Adverse Reaction (Verified 01/04/21 11:19) restless legs Home Medications: Ambulatory Orders Medication Instructions Recorded Atorvastatin Calcium [Lipitor] 80 mg PO DAILY 07/31/17 Insulin NPH Hum/Reg Insulin Hm 22 unit SQ BID 07/31/17 [Humulin 70-30 Vial] Ropinirole HCl [Requip Xl] 5 mg PO BID 07/31/17 Furosemide [Lasix] 20 mg PO DAILY 01/10/19 proMETHazine tablet [Phenergan 25 mg PO Q6H PRN PRN #10 tab 09/09/19 tablet] escitalopram oxalate 20 mg tablet 20 mg PO DAILY tab 10/24/19 ondansetron HCl 4 mg tablet 4 mg PO BID-TID PRN 10/24/19 oxybutynin chloride 10 mg 10 mg PO DAILY 10/24/19 tablet,extended release 24 hr Aspirin 1 tab PO DAILY 01/01/21 Trazodone HCl 50 mg PO QHS 01/01/21 Losartan Potassium 25 mg PO DAILY #60 tab 01/03/21 Metoprolol(XL)Succ [Toprol Xl 25 mg PO DAILY #60 tab 01/03/21 (Beta Zakia)] Pantoprazole Sodium [Protonix] 40 mg PO DAILY #60 tab 01/03/21 Surgical History: Surgical History (Last Reviewed 01/01/21 @ 12:[address] Sudarshan Antunez MD) H/O coronary artery bypass surgery (Resolved) Onset Date: 01/29/03 Z95.1 CABG x 2 FAIR-LAD, SVG-RPDA 01/29/2003 H/O laminectomy Z98.890 History of angioplasty of peripheral vessel Onset Date: 07/2013 Z98.62 [employer]ATION [employer] w/ stenting to Left common iliac History of cardioversion Onset Date: 2014 Z98.890 History of cholecystectomy Onset Date: 08/2019 Z90.49 History of colonoscopy Z98.890 History of esophagogastroduodenoscopy (EGD) Onset Date: 01/2018 Z98.890 History of hysterectomy Onset Date: 1995 Z90.710 History of open reduction and internal fixation (ORIF) procedure Z98.890 ankle History of partial nephrectomy Z90.5 for malignant tumor 2014 [facility] History of radiofrequency ablation procedure for cardiac arrhythmia Onset Date: 03/19/16 Z98.890 Pulmonary Vein Antral Isolation, Linear Roof and Posterior Left Atrial wall Ablation 03/19/16 Surgical History: coronary bypass surgery, hysterectomy, - - Back surgery. partial nephrectomy for cancer. 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 Sudarshan Antunez MD) Mother Cancer Father Colon cancer Heart disease Sister Colon cancer History Items: No pertinent history Paternal Family History: Family History (Last Reviewed 01/01/21 @ 12:[address] Sudarshan Antunez MD) Mother Cancer Father Colon cancer Heart disease Sister Colon cancer History Items: No pertinent history Review of Systems Constitutional: Denies: Anorexia, Chills, Fever, Night Sweats, Weight Change HEENT: Denies: Head Aches, Sinus Congestion, Sinus Drainage Cardiovascular: Denies: Chest Pain, Orthopnea, Palpitations, Paroxysmal Noc. Dyspnea Respiratory: Denies: Cough, Shortness of breath at rest, Shortness of breath upon exertion, Sputum production Gastrointestinal: Reports: Abdominal Pain, Nausea, Vomiting. Denies: Hematemesis, Hematochezia, Melena Genitourinary: Denies: Dysuria, Frequency, Hematuria, Urgency Musculoskeletal: Denies: Joint Pain, Joint Tenderness Skin: Denies: Rash Neurological: Denies: Focal weakness, Numbness, Tingling Psychiatric: Denies: Homicidal Ideations, Suicidal Ideations Hematologic/ Lymphatic: Denies: Easy Bruising, Easy Bleeding VTE Information - Inpt Only VTE Present on Admission: No VTE Mechan Device Prophylaxis: None VTE Pharm Prophylaxis ordered?: Yes Objective: GENERAL: cooperative HEENT: Atraumatic; EYES; Anicteric, Normal Conjunctiva NECK; supple, normal thyroid, RESPIRATORY: Diminished to auscultation CARDIOVASCULAR: Regular S1 S2, GI: Epigastric tenderness, normoactive bowel sounds, : No Renal angle tenderness; EXTREMITIES: No edema, no clubbing, MUSCULOSKELETAL: no muscle waisting NEURO: Awake; no lateralizing signs. SKIN: No Rash PSYCH; Flat affect - Physical Exam Vitals/I&O's: Vital Signs Temp Pulse Resp BP Pulse Ox 98.2 F 93 18 183/95 H 100 01/04/21 11:15 01/04/21 11:15 01/04/21 11:15 01/04/21 11:15 01/04/21 11:15 Oxygen Delivery Method Room Air Weight: 80.8 kg Body Mass Index (BMI) 27.1 Laboratory Results 01/04/21 11:20: WBC 8.4, RBC 4.90, Hgb 15.1 H, Hct 43.5, MCV 88.8 D, MCH 30.8, MCHC 34.7 D, RDW Std Deviation 37.0, RDW Coeff of Ray 11.5 L, Plt Count 216, MPV 9.8, Immature Gran % (Auto) 0.400, Neut % (Auto) 66.8, Lymph % (Auto) 26.0, [place] % (Auto) 5.6, Eos % (Auto) 0.7, Baso % (Auto) 0.5, Absolute Neuts (auto) 5.6, Absolute Lymphs (auto) 2.19, Nucleated RBC % 0 01/04/21 11:20: Sodium 136, Potassium 4.3, Chloride 103, Carbon Dioxide 25.0, Anion Gap 8, BUN 8, Creatinine 1.03 H, Estim Creat Clear Calc 52.73, Est GFR (MDRD) Af Amer 68, Est GFR (MDRD) Non-Af 57 L, BUN/Creatinine Ratio 7.8 L, Glucose 142 H, Calcium 8.8, Total Bilirubin 0.90, AST 46 H, ALT 64 H, Alkaline Phosphatase 81, Troponin I < 0.015, Total Protein 7.2, Albumin 3.6, Globulin 3.6, Albumin/Globulin Ratio 1.0, Lipase 90 01/04/21 11:20: Lactic Acid 1.9 Current Medications Sodium Chloride () 1,000 mls @ 125 mls/hr IV .Q8H MOI Last Admin: 01/04/21 11:33 Dose: 125 mls/hr Documented by: Assessment/Plan All Active Problems (Last Reviewed 01/01/21 @ 12:[address] Sudarshan Antunez MD) Abdominal pain (Acute) H/O coronary artery bypass surgery (Resolved 01/29/03) 70-year-old lady presenting with abdominal pain with associated nausea and vomiting 1. Abdominal pain -Patient was discharged on 01/03/2021 with similar symptoms. It was felt to be secondary to gastroduodenitis symptoms did improve however patient returned the following day with worsening abdominal pain with associated nausea and vomiting. Admitted to regular nursing floor for symptomatic treatment. If patient symptoms persist will consider obtaining general surgery consultation for possible endoscopic evaluation ?? Gastroduodenitis. (Patient has history of cyclical vomiting) imaging studies obtained on admission demonstrated Status post cholecystectomy. Persistent thickening of the gastric antrum extending into the first portion of the duodenum with mild increased markings in the surrounding peritoneal fat although this has improved as compared to prior study. Admitted to regular nursing floor for symptomatic management. Patient was also placed on PPI. If symptoms persist will consult general surgery for possible endoscopic evaluation prior to discharge 2. Diabetes mellitus type II -Placed on long acting insulin, Accu-Cheks a.c. and at bedtime and covered with sliding scale insulin 3. Hypertension - Blood pressure controlled, home medications continued with dose adjustment as needed 4. History of renal cell carcinoma ?Status post partial right nephrectomy 5. Paroxysmal A. fib ?With previous due frequency ablation. Patient presented in sinus rhythm 6. Coronary artery disease ?Status post CABG in 2002 6. Chronic congestive heart failure with preserved ejection fraction ?Is on Lasix held during previous admission in view of impaired kidney function which has since resolved 7. DVT prophylaxis ?Lovenox OBSV E&M: [id number] Initial observation care L3
[2021-01-04 13:07] VITALS: BP 143/67; PULSE 81; RESP 16; TEMP 36.1; O2SAT 99
[2021-01-04 13:58] VITALS: BMI 27.1
[2021-01-04 14:08] VITALS: BMI 24.2
[2021-01-04] MEDS: 0.9% Saline Lock 10 ML Syringe IV ×2 (15:19→22:27)
[2021-01-04] MEDS: Senna/Docusate Sodium 1 Tablet 2 TABLET PO (15:20)
[2021-01-04 15:24] VITALS: BP 165/77; PULSE 91; RESP 18; TEMP 36.7; O2SAT 100
[2021-01-04 16:41] LABS: Bedside Glucose 160 mg/dL (70-110)
[2021-01-04] MEDS: Insulin Lispro 100 UNIT/ML INSULN.PEN SC (17:08)
[2021-01-04] MEDS: Mag Hydrox/Al Hydrox/Simeth 30 ML UDC PO (17:10)
[2021-01-04] MEDS: oxyCODONE 5 MG Tablet 10 MG PO (17:20)
--- NOTE | 2021-01-04 17:36 | NURSING ---
pt states recently saw Sanjana Juares NP [phone] with gastroenterology
[2021-01-04 22:23] VITALS: BP 142/72; PULSE 72; RESP 20; TEMP 36.6; O2SAT 98
[2021-01-04] MEDS: proMETHazine 25 MG/ML Syringe IM (22:25)
[2021-01-04 23:06] LABS: Bedside Glucose 124 mg/dL (70-110)
[2021-01-05] MEDS: 0.9% Normal Saline 1,000 ML 125 ML IV ×3 (00:56→16:30)
[2021-01-05 03:26] VITALS: BP 133/66; PULSE 69; RESP 18; TEMP 36.7; O2SAT 95
[2021-01-05 05:24] LABS: Absolute Lymphocyte Count 2.63 X10^3/uL (0.83-4.51); Absolute Neutrophil Count 5.5 X10^3/uL (2.0-7.7); Basophil# 0.04 X10^3/uL; Basophil% 0.5 % (0-1); Eosinophil# 0.13 X10^3/uL; Eosinophils% 1.5 % (0-5); Hemoglobin 12.7 g/dL (12.0-15.0); Lymphocyte # 2.63 X10^3/ul (4.0); Lymphocyte % 29.7 % (19-41); Mean Corp Hgb Conc 33.4 g/dL (32-36); Mean Corpuscular Hgb 30.8 pg (27.0-32.0); Mean Platelet Vol. 9.7 fl (6.2-12.0); Monocyte# 0.52 X10^3/uL; Monocyte% 5.9 % (0-10); NRBC Flagged by Analyzer 0 % (0-5); Neutrophil # 5.51 X10^3/uL (2.7-7.7); Neutrophil % 62.1 % (47-70); Platelet Count 184 K/mm3 (150-450); RBC Distribution Width CV 11.9 % (11.6-14.6); RBC Distribution Width SD 39.9 fl (35.1-43.9); Red Blood Count 4.13 M/mm3 (4.2-5.4); White Blood Count 8.9 K/mm3 (4.4-11.0)
[2021-01-05] MEDS: Morphine 4 MG/ML Syringe IV ×3 (05:45→20:43)
[2021-01-05] MEDS: 0.9% Saline Lock 10 ML Syringe IV ×2 (05:45→11:37)
[2021-01-05] MEDS: Ondansetron 4 MG/2 ML Vial IV ×2 (05:45→20:43)
[2021-01-05 06:17] LABS: ALB/GLOB Ratio 1.1 RATIO (0.9-2.4); AST(SGOT) 32 U/L (15-37); Alanine Aminotransfer ALT/SGPT 46 U/L (13-56); Albumin, Serum 3.1 g/dL (3.2-5.0); Alkaline Phosphatase 71 U/L (45-117); Anion Gap 7 (5-15); BUN 9 mg/dL (7-18); BUN/Creat Ratio 9.3 RATIO (10-20); Calcium,Total 7.7 mg/dL (8.5-10.1); Chloride 106 mmol/L (98-107); Creatinine, Serum 0.97 mg/dL (0.55-1.02); EST Glomerular Filtration Rate 60 mL/min (>60); Est Glom Filt Rate - Afr Amer 73 mL/min (>60); Estimated Creatinine Clearance 55.99 ml/min; Globulin 2.8 g/dL (2.2-4.2); Glucose 100 mg/dL (74-106); Protein, Total 5.9 g/dL (6.4-8.2); Sodium Level 139 mmol/L (136-145)
--- NOTE | 2021-01-05 07:00 | NURSING ---
PANDEMIC DOCUMENTATION
--- NOTE | 2021-01-05 07:23 | PCM.PN.HOSP ---
Patient Problems: Active and Suspected Problems (Last Reviewed 01/04/21 @ 13:[address] Sudarshan Antunez MD) Abdominal pain (Acute) Reason for Visit: Abdominal pain nausea and vomiting Subjective: 70-year-old lady presenting with abdominal pain with associated nausea and vomiting Objective: GENERAL: cooperative HEENT: Atraumatic; EYES; Anicteric, Normal Conjunctiva NECK; supple, normal thyroid, RESPIRATORY: Diminished to auscultation CARDIOVASCULAR: Regular S1 S2, GI: Epigastric tenderness, normoactive bowel sounds, : No Renal angle tenderness; EXTREMITIES: No edema, no clubbing, MUSCULOSKELETAL: no muscle waisting NEURO: Awake; no lateralizing signs. SKIN: No Rash PSYCH; Flat affect Vitals/I&O's: Vital Signs Temp Pulse Resp BP Pulse Ox 98.1 F 69 18 133/66 H 95 01/05/21 03:26 01/05/21 03:26 01/05/21 03:26 01/05/21 03:26 01/05/21 03:26 Oxygen Delivery Method Room Air Weight: 72.2 kg Body Mass Index (BMI) 24.2 Intake and Output for Last 24 Hours 01/03/21 01/04/21 01/05/21 23:59 23:59 23:59 Intake Total 803.33 / 803.33 989.58 / 989.58 Output Total 400 / 400 Balance 403.33 / 403.33 989.58 / 989.58 Laboratory Results 01/04/21 11:20: WBC 8.4, RBC 4.90, Hgb 15.1 H, Hct 43.5, MCV 88.8 D, MCH 30.8, MCHC 34.7 D, RDW Std Deviation 37.0, RDW Coeff of Ray 11.5 L, Plt Count 216, MPV 9.8, Immature Gran % (Auto) 0.400, Neut % (Auto) 66.8, Lymph % (Auto) 26.0, [place] % (Auto) 5.6, Eos % (Auto) 0.7, Baso % (Auto) 0.5, Absolute Neuts (auto) 5.6, Absolute Lymphs (auto) 2.19, Nucleated RBC % 0 01/04/21 11:20: Sodium 136, Potassium 4.3, Chloride 103, Carbon Dioxide 25.0, Anion Gap 8, BUN 8, Creatinine 1.03 H, Estim Creat Clear Calc 52.73, Est GFR (MDRD) Af Amer 68, Est GFR (MDRD) Non-Af 57 L, BUN/Creatinine Ratio 7.8 L, Glucose 142 H, Calcium 8.8, Total Bilirubin 0.90, AST 46 H, ALT 64 H, Alkaline Phosphatase 81, Troponin I < 0.015, Total Protein 7.2, Albumin 3.6, Globulin 3.6, Albumin/Globulin Ratio 1.0, Lipase 90 01/04/21 11:20: Lactic Acid 1.9 01/04/21 16:34: POC Glucose 160 H 01/04/21 22:42: POC Glucose 124 H 01/05/21 05:10: WBC 8.9, RBC 4.13 L, Hgb 12.7, Hct 38.0, MCV 92.0, MCH 30.8, MCHC 33.4, RDW Std Deviation 39.9, RDW Coeff of Ray 11.9, Plt Count 184, MPV 9.7, Immature Gran % (Auto) 0.300, Neut % (Auto) 62.1, Lymph % (Auto) 29.7, [place] % (Auto) 5.9, Eos % (Auto) 1.5, Baso % (Auto) 0.5, Absolute Neuts (auto) 5.5, Absolute Lymphs (auto) 2.63, Nucleated RBC % 0 01/05/21 05:10: Sodium 139, Potassium 4.0, Chloride 106, Carbon Dioxide 26.0, Anion Gap 7, BUN 9, Creatinine 0.97, Estim Creat Clear Calc 55.99, Est GFR (MDRD) Af Amer 73, Est GFR (MDRD) Non-Af 60, BUN/Creatinine Ratio 9.3 L, Glucose 100, Calcium 7.7 L, Total Bilirubin 0.90, AST 32, ALT 46, Alkaline Phosphatase 71, Total Protein 5.9 L, Albumin 3.1 L, Globulin 2.8, Albumin/Globulin Ratio 1.1 Current Medications Acetaminophen (Acetaminophen 325 Mg Tablet) 650 mg PO Q6H PRN PRN PRN Reason: Pain Score 1-10/Temp > 100.7 F Al Hydroxide/Mg Hydroxide (Mag Hydrox/Al Hydrox/Simeth 30 Ml Udc) 30 ml PO Q6H PRN PRN PRN Reason: Gastric Burning Last Admin: 01/04/21 17:10 Dose: 30 ml Documented by: Albuterol Sulfate (Albuterol 2.5 Mg/3 Ml Vial.Neb.) 2.5 mg INHALATION Q2H PRN PRN PRN Reason: Shortness of Breath/Wheezing Aspirin (Aspirin 325 Mg Tablet) 325 mg PO DAILY@0800 [facility] Atorvastatin Calcium (Atorvastatin Calcium 80 Mg Tablet) 80 mg PO DAILY@2200 [facility] Last Admin: 01/04/21 23:33 Dose: Not Given Documented by: Escitalopram Oxalate (Escitalopram Oxalate 20 Mg Tablet) 20 mg PO DAILY [facility] Furosemide (Furosemide 20 Mg Tablet) 20 mg PO DAILY [facility] Sodium Chloride () 1,000 mls @ 125 mls/hr IV .Q8H [facility] Last Admin: 01/05/21 00:56 Dose: 125 mls/hr Documented by: Sodium Chloride () 250 mls @ 15 mls/hr IV .[id number] PRN PRN Reason: Saline Flush Insulin Human Lispro (Insulin Lispro 100 Unit/Ml Insuln.Pen) 0 unit SC ACHS [facility]; Protocol Last Admin: 01/04/21 22:43 Dose: Not Given Documented by: Insulin Lispro Protam/Lispro Human (Insulin Human 75/25 [place]) 22 unit SC BIDCM [facility] Last Admin: 01/04/21 18:24 Dose: Not Given Documented by: Losartan Potassium (Losartan Potassium 25 Mg Tablet) 25 mg PO DAILY [facility] Melatonin (Melatonin 3 Mg Tablet) 3 mg PO QHS PRN PRN PRN Reason: INSOMNIA Metoprolol Succinate (Metoprolol(Xl)Succ 25 Mg Tablet) 25 mg PO DAILY [facility] Morphine Sulfate (Morphine 4 Mg/Ml Syringe) 4 mg IV Q3H PRN PRN PRN Reason: Pain Score 6-10 Last Admin: 01/05/21 05:45 Dose: 4 mg Documented by: Ondansetron HCl (Ondansetron 4 Mg/2 Ml Vial) 4 mg IV Q8H PRN PRN PRN Reason: NAUSEA/VOMITING Last Admin: 01/05/21 05:45 Dose: 4 mg Documented by: Oxycodone HCl (Oxycodone 5 Mg Tablet) 10 mg PO Q4H PRN PRN PRN Reason: Pain Score 4-5 Last Admin: 01/04/21 17:20 Dose: 10 mg Documented by: Pantoprazole Sodium (Pantoprazole Sodium 40 Mg Tablet) 40 mg PO DAILY [facility] Pramipexole Dihydrochloride (Pramipexole Di-Hcl 0.5 Mg Tablet) 1.5 mg PO BID [facility] Last Admin: 01/04/21 23:33 Dose: Not Given Documented by: Promethazine HCl (Promethazine 25 Mg/Ml Syringe) 25 mg IM Q6H PRN PRN PRN Reason: Breakthrough nausea/vomiting Last Admin: 01/04/21 22:25 Dose: 25 mg Documented by: Senna/Docusate Sodium (Senna/Docusate Sodium 1 Tablet) 2 tablet PO BID PRN PRN PRN Reason: Constipation Last Admin: 01/04/21 15:20 Dose: 2 tablet Documented by: Sodium Chloride (0.9% Saline Lock 10 Ml Syringe) 10 - 40 ml IV UD PRN PRN Reason: SALINE FLUSH Last Admin: 01/05/21 05:45 Dose: 10 ml Documented by: Throat Lozenges (Benzocaine/Menthol 1 Lozenge) 1 lozenge MUCOUS MEM Q2H PRN PRN PRN Reason: SORE THROAT Tolterodine Tartrate (Tolterodine Tartrate 2 Mg Cap.Sa) 2 mg PO DAILY [facility] Trazodone HCl (Trazodone 50 Mg Tablet) 50 mg PO QHS [facility] Last Admin: 01/04/21 23:33 Dose: Not Given Documented by: STROKE Vital Signs/Narrative: Vital Signs Temp Pulse Resp BP Pulse Ox 01/05/21 03:26 98.1 F 69 18 133/66 H 95 Medical Necessity - Tobacco Use Smoking Status: Former smoker Assessment/Plan All Active Problems (Last Reviewed 01/01/21 @ 12:[address] Sudarshan Antunez MD) Abdominal pain (Acute) H/O coronary artery bypass surgery (Resolved 01/29/03) 70-year-old lady presenting with abdominal pain with associated nausea and vomiting 1. Abdominal pain -Patient was discharged on 01/03/2021 with similar symptoms. It was felt to be secondary to gastroduodenitis symptoms did improve however patient returned the following day with worsening abdominal pain with associated nausea and vomiting. Admitted to regular nursing floor for symptomatic treatment. If patient symptoms persist will consider obtaining general surgery consultation for possible endoscopic evaluation ?01/05/2021; symptoms appear to be improving 2. Diabetes mellitus type II -Placed on long acting insulin, Accu-Cheks a.c. and at bedtime and covered with sliding scale insulin 3. Hypertension - Blood pressure controlled, home medications continued with dose adjustment as needed 4. History of renal cell carcinoma ?Status post partial right nephrectomy 5. Paroxysmal A. fib ?With previous due frequency ablation. Patient presented in sinus rhythm 6. Coronary artery disease ?Status post CABG in 2002 6. Chronic congestive heart failure with preserved ejection fraction ?Is on Lasix held during previous admission in view of impaired kidney function which has since resolved 7. DVT prophylaxis ?Lovenox OBSV E&M: [id number] Subsequent observation care L2
--- NOTE | 2021-01-05 07:30 | NURSING ---
This nurse aware that Blood sugar this morning via lab work is 100.
[2021-01-05 08:19] VITALS: BP 136/65; PULSE 68; RESP 18; TEMP 36.9; O2SAT 98
[2021-01-05] MEDS: Aspirin 325 MG Tablet PO (08:26)
[2021-01-05] MEDS: Pramipexole Di-HCl 0.5 MG Tablet 1.5 MG PO ×2 (08:26→20:51)
[2021-01-05] MEDS: Pantoprazole Sodium 40 MG Tablet PO (08:27)
[2021-01-05] MEDS: Escitalopram Oxalate 20 MG Tablet PO (08:27)
[2021-01-05] MEDS: Losartan Potassium 25 MG Tablet PO (08:27)
[2021-01-05 08:28] VITALS: PULSE 68
[2021-01-05] MEDS: Metoprolol(XL)Succ 25 MG Tablet PO (08:28)
[2021-01-05] MEDS: Furosemide 20 MG Tablet PO (08:28)
[2021-01-05] MEDS: Tolterodine Tartrate 2 MG CAP.SA PO (08:28)
--- NOTE | 2021-01-05 09:14 | NURSING ---
Walking in james at this time.
[2021-01-05 10:00] LABS: Mucous, Urine 0 SEEN /hpf (<or=2+)
[2021-01-05 10:05] LABS: Color, Urine Yellow (Yellow); Glucose, Dipstick Normal (Normal); Ketone-Dipstick 15 mg/dl (Negative); Leukocyte Esterase-Dipstick 25 /ul (Negative); Nitrite-Dipstick Negative (Negative); Occult Blood-Urine 150 /ul (Negative); Protein-Dipstick 15 mg/dl (Negative); Urine Bilirubin Dipstick Negative (Negative); Urine Clarity Clear (Clear); Urine Urobilinogen Normal (Normal)
[2021-01-05 11:10] LABS: Bacteria 1+ /hpf (None Seen); Red Blood Cells-Urine 25-50 SEEN /hpf (0-5); Squamous Epithelial Cells - UA 0-5 SEEN /hpf (5-10); White Blood Cells 0-5 SEEN /hpf (0-5)
[2021-01-05] MEDS: proMETHazine 25 MG/ML Syringe IM (11:37)
[2021-01-05 12:15] LABS: Bedside Glucose 129 mg/dL (70-110)
[2021-01-05 16:23] VITALS: BP 115/58; PULSE 64; RESP 16; TEMP 36.8; O2SAT 96
[2021-01-05] MEDS: Insulin Lispro 100 UNIT/ML INSULN.PEN SC ×2 (16:25→20:51)
[2021-01-05] MEDS: Senna/Docusate Sodium 1 Tablet 2 TABLET PO (16:30)
[2021-01-05 17:25] LABS: Bedside Glucose 152 mg/dL (70-110)
[2021-01-05] MEDS: traZODone 50 MG Tablet PO (20:53)
[2021-01-05] MEDS: Atorvastatin Calcium 80 MG Tablet PO (20:53)
[2021-01-05 20:57] VITALS: BP 137/68; PULSE 65; RESP 18; TEMP 36.8; O2SAT 99
[2021-01-05 21:25] LABS: Bedside Glucose 177 mg/dL (70-110)
[2021-01-06] MEDS: 0.9% Normal Saline 1,000 ML 125 ML IV ×2 (00:17→08:21)
[2021-01-06 02:55] VITALS: BP 112/54; PULSE 71; RESP 18; TEMP 37; O2SAT 96
[2021-01-06] MEDS: oxyCODONE 5 MG Tablet 10 MG PO (04:35)
[2021-01-06] MEDS: Ondansetron 4 MG/2 ML Vial IV (04:35)
[2021-01-06 06:41] LABS: Bedside Glucose 125 mg/dL (70-110)
[2021-01-06 07:08] LABS: Absolute Neutrophil Count 5.3 X10^3/uL (2.0-7.7); Basophil# 0.03 X10^3/uL; Basophil% 0.4 % (0-1); Eosinophil# 0.16 X10^3/uL; Hematocrit 34.7 % (37-47); Hemoglobin 11.5 g/dL (12.0-15.0); Lymphocyte % 24.2 % (19-41); Mean Corp Hgb Conc 33.1 g/dL (32-36); Mean Corpuscular Hgb 31.1 pg (27.0-32.0); Mean Corpuscular Volume 93.8 fL (81-99); Mean Platelet Vol. 9.7 fl (6.2-12.0); Monocyte# 0.46 X10^3/uL; Monocyte% 5.9 % (0-10); NRBC Flagged by Analyzer 0 % (0-5); Neutrophil # 5.29 X10^3/uL (2.7-7.7); Neutrophil % 67.2 % (47-70); Platelet Count 178 K/mm3 (150-450); RBC Distribution Width CV 11.9 % (11.6-14.6); RBC Distribution Width SD 40.9 fl (35.1-43.9); White Blood Count 7.9 K/mm3 (4.4-11.0)
[2021-01-06 07:36] LABS: ALB/GLOB Ratio 1.1 RATIO (0.9-2.4); AST(SGOT) 20 U/L (15-37); Alanine Aminotransfer ALT/SGPT 35 U/L (13-56); Albumin, Serum 2.8 g/dL (3.2-5.0); Alkaline Phosphatase 62 U/L (45-117); Anion Gap 5 (5-15); BUN 7 mg/dL (7-18); BUN/Creat Ratio 7.3 RATIO (10-20); Calcium,Total 7.4 mg/dL (8.5-10.1); Chloride 107 mmol/L (98-107); Creatinine, Serum 0.96 mg/dL (0.55-1.02); EST Glomerular Filtration Rate 61 mL/min (>60); Est Glom Filt Rate - Afr Amer 74 mL/min (>60); Estimated Creatinine Clearance 56.58 ml/min; Globulin 2.5 g/dL (2.2-4.2); Glucose 127 mg/dL (74-106); Potassium 3.9 mmol/L (3.5-5.1); Protein, Total 5.3 g/dL (6.4-8.2); Sodium Level 140 mmol/L (136-145)
[2021-01-06] MEDS: Aspirin 325 MG Tablet PO (08:22)
[2021-01-06] MEDS: Pantoprazole Sodium 40 MG Tablet PO (08:24)
[2021-01-06 08:25] VITALS: BP 119/65; PULSE 71; RESP 16; TEMP 36.7; O2SAT 98
[2021-01-06] MEDS: Losartan Potassium 25 MG Tablet PO (08:25)
[2021-01-06] MEDS: Pramipexole Di-HCl 0.5 MG Tablet 1.5 MG PO (08:25)
[2021-01-06] MEDS: Escitalopram Oxalate 20 MG Tablet PO (08:25)
[2021-01-06] MEDS: Metoprolol(XL)Succ 25 MG Tablet PO (08:25)
[2021-01-06] MEDS: Furosemide 20 MG Tablet PO (08:25)
[2021-01-06] MEDS: Tolterodine Tartrate 2 MG CAP.SA PO (08:26)
[2021-01-06] MEDS: Mag Hydrox/Al Hydrox/Simeth 30 ML UDC PO (08:30)
[2021-01-06] MEDS: oxyCODONE 5 MG Tablet PO (08:30)
[2021-01-06 09:41] LABS: Bedside Glucose 169 mg/dL (70-110)
--- NOTE | 2021-01-06 11:30 | CASEMGMT ---
RN KRISTIAN Face to Face with patient for initial transition planning/care coordination assessment. RN CM introduced self and role at [facility]. Patient lying in bed, alert and oriented. Patient willing to participate in assessment and is able to answer all questions appropriately. Care providers, pharmacy, and demographics verified. Patient wishes to discharge home, denies need for home health at this time. Patient inquired about MOW and MANUFACTURING ASSEMBLER, RN CM updated SW to assist with resources. Patient states dhe has no further needs or concerns at this time. CM to follow for discharge planning needs that may arise. PCP: [facility] Specialists: Cher mine engineer; Yoon, surgeon Preferred Pharmacy: [facility] Insurance: [facility] Prescription Benefit: yes Living Will/HPOA: none LNOK: sister Living Arrangements: Patient lives alone in a downstairs apartment with 6 steps and railing to enter. Patient states she is independent at home. Transportation: self/sister DME/HHC: Patient states she has cane and walker at home. Patient denies previous HHC or SNF. Disposition Plan: Patient to discharge home with follow-up plans in place. Salome CONTRERAS, RN, CM
[2021-01-06 12:41] LABS: Bedside Glucose 114 mg/dL (70-110)
--- NOTE | 2021-01-06 14:12 | CASEMGMT ---
SW spoke w/pt in regard to both [facility] and [facility]. Pt did not want SW to make referral for [facility], just wanted information. SW gave pt information for both [employer] and [facility]. SW also provided to pt a brochure about [facility]. Pt is agreeable to a buttermaker helper care assessment. SW faxed form to [facility] for the assessment. SW remains available for any additional social service needs. GRUPO Gonzalez
--- NOTE | 2021-01-06 14:15 | DCINST_ITS ---
- Discharge Diagnoses Current Active Problems: Current Active and Chronic Problems (Last Reviewed 01/04/21 @ 13:[address] Sudarshan Antunez MD) Abdominal pain (Acute) Paroxysmal atrial fibrillation (Chronic) Failed DCCV; failed drug therapy; radiofrequency ablation; Persistent atrial fibrillation (Chronic) PVI w/ RFA Atherosclerosis of coronary artery of [place] heart without angina pectoris (Chronic) Essential (primary) hypertension (Chronic) Hypomagnesemia (Chronic) Peripheral vascular occlusive disease (Chronic) Renal cell carcinoma (Chronic) You will use the following diet at home:: Other - bland diet. advance as tolerated. Your food should be the consistency of: Regular, Mechanical soft (ground) Your liquids should be the consistency of: Regular/Thin, [place] Thick Discharge Activity: Return to Normal Activity, No Restrictions Call your doctor if you observe: - - worsening abdominal pain. 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 metoclopramide [From Reglan] Adverse Reaction (Verified 01/04/21 11:19) restless legs Medications to take at Discharge Atorvastatin Calcium [Lipitor] 80 mg PO DAILY 07/31/17 Insulin NPH Hum/Reg Insulin Hm [Humulin 70-30 Vial] 22 unit SQ BID 07/31/17 Ropinirole HCl [Requip Xl] 5 mg PO BID 07/31/17 Furosemide [Lasix] 20 mg PO DAILY 01/10/19 proMETHazine tablet [Phenergan tablet] 25 mg PO Q6H PRN PRN #10 tab 09/09/19 escitalopram oxalate 20 mg tablet 20 mg PO DAILY tab 10/24/19 ondansetron HCl 4 mg tablet 4 mg PO BID-TID PRN 10/24/19 oxybutynin chloride 10 mg tablet,extended release 24 hr 10 mg PO DAILY 10/24/19 Aspirin 1 tab PO DAILY 01/01/21 Trazodone HCl 50 mg PO QHS 01/01/21 Losartan Potassium 25 mg PO DAILY #60 tab 01/03/21 Metoprolol(XL)Succ [Toprol Xl (Beta Zakia)] 25 mg PO DAILY #60 tab 01/03/21 Pantoprazole Sodium [Protonix] 40 mg PO DAILY #60 tab 01/03/21 Acetaminophen [Tylenol Tablet] 650 mg PO Q6H PRN PRN tablet 01/06/21 Ondansetron [Zofran] 8 mg PO Q8H PRN PRN #15 tab 01/06/21 Oxycodone [Oxyir] 5 mg PO Q6H PRN 3 Days #12 tablet 01/06/21 The following prescriptions were given: Oxycodone [Oxyir] 5 mg PO Q6H PRN 3 Days #12 tablet PRN Reason: Pain Score 6-10 Transmission Status: Sent to [facility] Ondansetron [Zofran] 8 mg PO Q8H PRN PRN #15 tab PRN Reason: Nausea/Vomiting Transmission Status: Pending to [facility] Primary Care Physician: Tae Banegas DO [Primary Care Provider] - Within 2 Weeks Test Results: Test results from this visit will be discussed in further detail at your follow- up appointment, if applicable. Proposed Discharge Date: 01/06/21
--- NOTE | 2021-01-06 14:17 | PCM.DC.SUM ---
Discharge Date and Diagnosis - Problem List Patient Problems: Active and Suspected Problems (Last Reviewed 01/04/21 @ 13:[address] Sudarshan Antunez MD) Abdominal pain (Acute) Date of Admission: 01/04/21 Date of Discharge: 01/06/21 - Primary Discharge Diagnosis Acute Problems: Active Problems (Last Reviewed 01/04/21 @ 13:[address] Sudarshan Antunez MD) Abdominal pain (Acute) - Secondary Discharge Diagnosis Chronic Problems: Chronic Problems (Last Reviewed 01/04/21 @ 13:[address] Sudarshan Antunez MD) Paroxysmal atrial fibrillation (Chronic) Failed DCCV; failed drug therapy; radiofrequency ablation; Persistent atrial fibrillation (Chronic) PVI w/ RFA Atherosclerosis of coronary artery of [place] heart without angina pectoris (Chronic) Essential (primary) hypertension (Chronic) Hypomagnesemia (Chronic) Peripheral vascular occlusive disease (Chronic) Renal cell carcinoma (Chronic) Hospital Course and Treatment Imaging Results: Clinical Impression(s) from Imaging Studies KUB X-Ray 01/04/21 11:26 IMPRESSION: Normal x-ray examination of the abdomen and pelvis. Electronically Signed: Marvin Tabares MD at 12:04 EST Tel , Service support , Operations: None Procedures: None Summary of Care Provided: The patient is a 70 year old F presents with abdominal pain and nausea and vomiting. Has known cyclic vomiting syndrome. Was discharged on the and diagnosed with gastroduodenitis only to return on the . Work up unremarkable. Diet advanced today and tolerated it. Will discharge with antiemetics and #12 oxycodone 5mg. Consider further evaluation with GI as outpt. [] Patient Problems: Active and Suspected Problems (Last Reviewed 01/04/21 @ 13:[address] Sudarshan Antunez MD) Abdominal pain (Acute) - Physical Exam Vitals/I&O's: Vital Signs Temp Pulse Resp BP Pulse Ox 36.7 C 71 16 119/65 98 01/06/21 08:25 01/06/21 08:25 01/06/21 08:25 01/06/21 08:25 01/06/21 08:25 Oxygen Delivery Method Room Air Weight: 72.2 kg Body Mass Index (BMI) 24.2 Intake and Output for Last 24 Hours 01/04/21 01/05/21 01/06/21 23:59 23:59 23:59 Intake Total 803.33 / 803.33 3535.42 / 3535.42 2402.09 / 2402.09 Output Total 400 / 400 Balance 403.33 / 403.33 3535.42 / 3535.42 2402.09 / 240.09 General: Alert, No apparent distress HEENT: Atraumatic, Normocephalic Oral: Moist Mucosa, No Gingival or Mucosal Lesions/ Ulcerations Neck: No Nodes, Thyroid Normal Size and Texture Lungs: Clear to auscultation, Normal air movement, No rhonchi, No wheeze, No rales Cardiovascular: Regular rate, Regular Rhythm, Normal S1, Normal S2, No murmurs Abdomen: Bowel Sounds Present, Soft, Non-Distended, - - epigastric tenderness Extremities: No edema, No Calf Tenderness Psych/Mental Status: Normal Affect, Appropriate Laboratory Results 01/05/21 16:21: POC Glucose 152 H 01/05/21 20:50: POC Glucose 177 H 01/06/21 06:17: WBC 7.9, RBC 3.70 L, Hgb 11.5 L, Hct 34.7 L, MCV 93.8, MCH 31.1, MCHC 33.1, RDW Std Deviation 40.9, RDW Coeff of Ray 11.9, Plt Count 178, MPV 9.7, Immature Gran % (Auto) 0.300, Neut % (Auto) 67.2, Lymph % (Auto) 24.2, [place] % (Auto) 5.9, Eos % (Auto) 2.0, Baso % (Auto) 0.4, Absolute Neuts (auto) 5.3, Absolute Lymphs (auto) 1.90, Nucleated RBC % 0 01/06/21 06:17: Sodium 140, Potassium 3.9, Chloride 107, Carbon Dioxide 28.0, Anion Gap 5, BUN 7, Creatinine 0.96, Estim Creat Clear Calc 56.58, Est GFR (MDRD) Af Amer 74, Est GFR (MDRD) Non-Af 61, BUN/Creatinine Ratio 7.3 L, Glucose 127 H, Calcium 7.4 L, Total Bilirubin 0.40, AST 20, ALT 35, Alkaline Phosphatase 62, Total Protein 5.3 L, Albumin 2.8 L, Globulin 2.5, Albumin/Globulin Ratio 1.1 01/06/21 06:26: POC Glucose 125 H 01/06/21 09:35: POC Glucose 169 H 01/06/21 12:33: POC Glucose 114 H Current Medications Acetaminophen (Acetaminophen 325 Mg Tablet) 650 mg PO Q6H PRN PRN PRN Reason: Pain Score 1-10/Temp > 100.7 F Al Hydroxide/Mg Hydroxide (Mag Hydrox/Al Hydrox/Simeth 30 Ml Udc) 30 ml PO Q6H PRN PRN PRN Reason: Gastric Burning Last Admin: 01/06/21 08:30 Dose: 30 ml Documented by: Albuterol Sulfate (Albuterol 2.5 Mg/3 Ml Vial.Neb.) 2.5 mg INHALATION Q2H PRN PRN PRN Reason: Shortness of Breath/Wheezing Aspirin (Aspirin 325 Mg Tablet) 325 mg PO DAILY@0800 [facility] Last Admin: 01/06/21 08:22 Dose: 325 mg Documented by: Atorvastatin Calcium (Atorvastatin Calcium 80 Mg Tablet) 80 mg PO DAILY@2200 [facility] Last Admin: 01/05/21 20:53 Dose: 80 mg Documented by: Escitalopram Oxalate (Escitalopram Oxalate 20 Mg Tablet) 20 mg PO DAILY [facility] Last Admin: 01/06/21 08:25 Dose: 20 mg Documented by: Furosemide (Furosemide 20 Mg Tablet) 20 mg PO DAILY [facility] Last Admin: 01/06/21 08:25 Dose: 20 mg Documented by: Sodium Chloride () 1,000 mls @ 125 mls/hr IV .Q8H [facility] Last Infusion: 01/06/21 09:39 Dose: 125 mls/hr Documented by: Sodium Chloride () 250 mls @ 15 mls/hr IV .[id number] PRN PRN Reason: Saline Flush Insulin Human Lispro (Insulin Lispro 100 Unit/Ml Insuln.Pen) 0 unit [facility]; Protocol Last Admin: 01/06/21 12:34 Dose: Not Given Documented by: Insulin Lispro Protam/Lispro Human (Insulin Human 75/25 [place]) 22 unit SC BIDCM [facility] Last Admin: 01/06/21 08:22 Dose: Not Given Documented by: Losartan Potassium (Losartan Potassium 25 Mg Tablet) 25 mg PO DAILY [facility] Last Admin: 01/06/21 08:25 Dose: 25 mg Documented by: Melatonin (Melatonin 3 Mg Tablet) 3 mg PO QHS PRN PRN PRN Reason: INSOMNIA Metoprolol Succinate (Metoprolol(Xl)Succ 25 Mg Tablet) 25 mg PO DAILY [facility] Last Admin: 01/06/21 08:25 Dose: 25 mg Documented by: Ondansetron HCl (Ondansetron 4 Mg/2 Ml Vial) 4 mg IV Q8H PRN PRN PRN Reason: NAUSEA/VOMITING Last Admin: 01/06/21 04:35 Dose: 4 mg Documented by: Oxycodone HCl (Oxycodone 5 Mg Tablet) 5 mg PO Q4H PRN PRN PRN Reason: Pain Score 6-10 Last Admin: 01/06/21 08:30 Dose: 5 mg Documented by: Pantoprazole Sodium (Pantoprazole Sodium 40 Mg Tablet) 40 mg PO DAILY [facility] Last Admin: 01/06/21 08:24 Dose: 40 mg Documented by: Pramipexole Dihydrochloride (Pramipexole Di-Hcl 0.5 Mg Tablet) 1.5 mg PO BID [facility] Last Admin: 01/06/21 08:25 Dose: 1.5 mg Documented by: Promethazine HCl (Promethazine 25 Mg/Ml Syringe) 25 mg IM Q6H PRN PRN PRN Reason: Breakthrough nausea/vomiting Last Admin: 01/05/21 11:37 Dose: 25 mg Documented by: Senna/Docusate Sodium (Senna/Docusate Sodium 1 Tablet) 2 tablet PO BID PRN PRN PRN Reason: Constipation Last Admin: 01/05/21 16:30 Dose: 2 tablet Documented by: Sodium Chloride (0.9% Saline Lock 10 Ml Syringe) 10 - 40 ml IV UD PRN PRN Reason: SALINE FLUSH Last Admin: 01/05/21 11:37 Dose: 10 ml Documented by: Throat Lozenges (Benzocaine/Menthol 1 Lozenge) 1 lozenge MUCOUS MEM Q2H PRN PRN PRN Reason: SORE THROAT Tolterodine Tartrate (Tolterodine Tartrate 2 Mg Cap.Sa) 2 mg PO DAILY [facility] Last Admin: 01/06/21 08:26 Dose: 2 mg Documented by: Trazodone HCl (Trazodone 50 Mg Tablet) 50 mg PO QHS [facility] Last Admin: 01/05/21 20:53 Dose: 50 mg Documented by: Discharge Diet: - - bland, advance as tolerated Discharge Activity: Return to Normal Activity, No Restrictions Call your doctor if you observe: - - worsening abdominal pain. Home Medications: Medications to take at Discharge Atorvastatin Calcium [Lipitor] 80 mg PO DAILY 07/31/17 Insulin NPH Hum/Reg Insulin Hm [Humulin 70-30 Vial] 22 unit SQ BID 07/31/17 Ropinirole HCl [Requip Xl] 5 mg PO BID 07/31/17 Furosemide [Lasix] 20 mg PO DAILY 01/10/19 proMETHazine tablet [Phenergan tablet] 25 mg PO Q6H PRN PRN #10 tab 09/09/19 escitalopram oxalate 20 mg tablet 20 mg PO DAILY tab 10/24/19 ondansetron HCl 4 mg tablet 4 mg PO BID-TID PRN 10/24/19 oxybutynin chloride 10 mg tablet,extended release 24 hr 10 mg PO DAILY 10/24/19 Aspirin 1 tab PO DAILY 01/01/21 Trazodone HCl 50 mg PO QHS 01/01/21 Losartan Potassium 25 mg PO DAILY #60 tab 01/03/21 Metoprolol(XL)Succ [Toprol Xl (Beta Zakia)] 25 mg PO DAILY #60 tab 01/03/21 Pantoprazole Sodium [Protonix] 40 mg PO DAILY #60 tab 01/03/21 Acetaminophen [Tylenol Tablet] 650 mg PO Q6H PRN PRN tablet 01/06/21 Ondansetron [Zofran] 8 mg PO Q8H PRN PRN #15 tab 01/06/21 Oxycodone [Oxyir] 5 mg PO Q6H PRN 3 Days #12 tablet 01/06/21 Following Prescriptions Were Given to Patient: Oxycodone [Oxyir] 5 mg PO Q6H PRN 3 Days #12 tablet PRN Reason: Pain Score 6-10 Transmission Status: Sent to [facility] Ondansetron [Zofran] 8 mg PO Q8H PRN PRN #15 tab PRN Reason: Nausea/Vomiting Transmission Status: Pending to [facility] Primary Care Physician: Tae Banegas DO [Primary Care Provider] - Within 2 Weeks Disposition: Home Minutes spent on discharge:: 28 Patient Condition:: Fair Medical Necessity - Tobacco Use Smoking Status: Former smoker Meaningful Use Info Meaningful Use Diagnoses (Choose all that apply): None applicable OBSV E&M: 04328 Observation care discharge
[2021-01-06 14:45] VITALS: BP 127/90; PULSE 79; RESP 16; TEMP 36.8; O2SAT 98
--- NOTE | 2021-01-06 14:50 | CASEMGMT ---
JULIA TOWNSEND in to discuss RYAN form with patient. RN KRISTIAN explained RYAN form, patient voiced understanding. Patient signed RYAN form and filed in chart. Patient provided with copy of signed RYAN form. Patient had no further questions or concerns at this time.
== END 2021-01-06 15:00 | disposition home or self-care (01) ==
LOC: ED 12:07 → MS3 13:11
PROVIDERS: Admitting Provider Internal Medicine; Emergency Provider Emergency Medicine; PCP Student in an Organized Health Care Education/Training Program
DX: R10.9 Unspecified abdominal pain (principal); R11.2 Nausea with vomiting, unspecified; I48.19 Other persistent atrial fibrillation; I25.10 Atherosclerotic heart disease of native coronary artery without angina pectoris; I13.0 Hypertensive heart and chronic kidney disease with heart failure and stage 1 through stage 4 chronic kidney disease, or unspecified chronic kidney disease; I50.32 Chronic diastolic (congestive) heart failure; N18.30 Chronic kidney disease, stage 3 unspecified; E11.22 Type 2 diabetes mellitus with diabetic chronic kidney disease; E11.42 Type 2 diabetes mellitus with diabetic polyneuropathy; K21.9 Gastro-esophageal reflux disease without esophagitis; F41.9 Anxiety disorder, unspecified; Z95.1 Presence of aortocoronary bypass graft; Z85.528 Personal history of other malignant neoplasm of kidney; Z79.899 Other long term (current) drug therapy; Z79.4 Long term (current) use of insulin; Z79.82 Long term (current) use of aspirin; Z90.5 Acquired absence of kidney; Z87.891 Personal history of nicotine dependence
CPT/HCPCS: 36415; 74018; 80053; 81001; 82962; 83605; 83690; 84484; 85025; 93005; 96361; 96374; 96375; 96376; 99218; 99285; J7030; A4216; G0378; J2405

== ENCOUNTER 2021-01-19 00:14 | Emergency (ER) | payer MEDICARE, SELFPAY ==
[2021-01-19 00:15] VITALS: BP 107/73; PULSE 91; RESP 18; TEMP 36.8; O2SAT 97; BMI 24.5
--- NOTE | 2021-01-19 00:36 | ED.DCSUM_ITS ---
History of Present Illness Chief Complaint: Abd Pain Informant: Patient - Abdominal Pain/Flank Pain Onset: Days - 3 Context: Gradual Onset Timing: Continuous Quality: Aching Location: Epigastric Current Severity: Severe Maximum Severity: Severe Worsened by: Food Relieved by: Nothing - Nausea/Vomiting/Emesis GI Symptom: Nausea, Vomiting Onset: Days - 3 Quality: Nonbilious. Negative for: Blood streaks, Coffee ground, Hematemesis Severity: Severe - Diarrhea/Melena/Hematochezia GI Symptom: Negative for: Diarrhea, Melena, Hematochezia Associated Symptoms: Negative for: Dysuria, Frequency, Hematuria, Urgency Narrative: Patient presenting with progressively worsening epigastric discomfort and nonbilious nonbloody emesis, she has been trying to stay hydrated but having trouble keeping down fluids and not able to keep down any food due to all of the vomiting. She states this is similar to many prior episodes of cyclic vomiting syndrome problems she has had in the past but the severity of this is maybe a little worse. She was recently admitted for similar issues along with hypokalemia, and since then on the 18 of this month 10 days ago, had an outpatient endoscopy at [facility] locally, EGD and colonoscopy, the colonoscopy was normal except for noninflamed diverticulosis and the EGD showed a hiatal hernia, mildly severe reflux esophagitis, rule out Paula's, biopsy pending as well as gastritis in the stomach antrum. She has not had her follow-up appointment yet to go over biopsies. Prior similar symptoms: Yes - Many episodes in past associated with cyclic vomiting syndrome Recent Illness/Hospitalization: Yes - Couple weeks ago for similar - Past Medical History (1) Cyclic vomiting syndrome Status: Chronic (2) Atherosclerosis of coronary artery of [place] heart without angina pectoris Status: Chronic (3) Essential (primary) hypertension Status: Chronic (4) Hypomagnesemia Status: Chronic (5) Paroxysmal atrial fibrillation Status: Chronic Comment: Failed DCCV; failed drug therapy; radiofrequency ablation; (6) Peripheral vascular occlusive disease Status: Chronic (7) Renal cell carcinoma Status: Chronic Past Medical History - Allergies and Home Meds Allergies/Adverse Reactions: Allergies diphenhydramine HCl [From Benadryl] Adverse Reaction (Verified 01/19/21 00:19) restless legs dofetilide Adverse Reaction (Verified 01/19/21 00:19) LONG QT 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 partial nephrectomy for cancer. Smoking Status: Former smoker Alcohol: None - Family History Maternal Family History: Family History (Last Reviewed 01/01/21 @ 12:[address] Sudarshan Antunez MD) Mother Cancer Father Colon cancer Heart disease Sister Colon cancer Family History: Reports: No pertinent history Paternal Family History: Family History (Last Reviewed 01/01/21 @ 12:[address] Sudarshan Antunez MD) Mother Cancer Father Colon cancer Heart disease Sister Colon cancer Family History: Reports: No pertinent history Review of Systems General: Reports: Malaise. Denies: Chills, Fever, Sweats Eyes: Denies: Visual changes - bilaterally, Diplopia ENT: Denies: Rhinorrhea, Sore throat Cardiovascular: Denies: Chest pain, Palpitations Respiratory: Denies: Dyspnea, Cough, Dyspnea on exertion Gastrointestinal: Reports: Abdominal pain, Nausea, Vomiting. Denies: Diarrhea, Melena, Hematochezia Genitourinary: Denies: Dysuria, Hematuria, Frequency Musculoskeletal: Reports: Back pain - low, chronic. Denies: Swelling, Extremity Pain Skin: Denies: Rash, Wounds Neurological: Denies: Headache, Weakness, Numbness Psych: Reports: Anxiety. Denies: Suicidal thoughts Physical Exam Vital Signs/Narrative: Vital Signs Temp Pulse Resp BP Pulse Ox 01/19/21 00:15 98.2 F 91 18 107/73 97 Inital Vital Signs reviewed: Yes General: Well nourished, Well developed, No Acute Distress Head: Normocephalic, Atraumatic Eyes: Perrl, EOMI ENT: Moist mucous membranes, No rhinorrhea Neck: Supple, Nontender Cardiovascular: Regular rate, Regular rhythm, No murmurs. Negative for: Tachycardia Respiratory: No distress, CTA bilaterally, Chest nontender Abdomen: Soft, Nondistended, Normal bowel sounds, Tender - across upper abd only. Negative for: Guarding, Rebound tenderness, Pulsatile mass Back: Nontender, Normal Inspection Extremities: Nontender, No edema. Negative for: Calf Tenderness Skin: Normal color, No rash, No Trauma Neurological: Alert, Oriented x3, Cranial nerves II-XII grossly intact, Normal Strength, Normal Sensation, Normal Gait Psychological: Normal affect, Normal Mood Diagnostic/Tx/Re-eval Laboratory Results 01/19/21 01/19/21 00:40 00:40 WBC 10.9 RBC 4.91 Hgb 15.3 H Hct 43.3 MCV 88.2 MCH 31.2 MCHC 35.3 RDW Std Deviation 39.4 RDW Coeff of Ray 12.1 Plt Count 327 MPV 9.3 Immature Gran % (Auto) 0.400 Neut % (Auto) 72.3 H Lymph % (Auto) 21.5 [place] % (Auto) 4.9 Eos % (Auto) 0.3 Baso % (Auto) 0.6 Absolute Neuts (auto) 7.9 H Absolute Lymphs (auto) 2.34 Nucleated RBC % 0 Sodium 135 L Potassium 3.5 Chloride 97 L Carbon Dioxide 24.0 Anion Gap 14 BUN 27 H Creatinine 1.54 H Estim Creat Clear Calc 35.27 Est GFR (MDRD) Af Amer 43 L Est GFR (MDRD) Non-Af 36 L BUN/Creatinine Ratio 17.5 Glucose 143 H Calcium 8.8 Total Bilirubin 1.20 H AST 20 ALT 25 Alkaline Phosphatase 86 Total Protein 7.3 Albumin 4.0 Globulin 3.3 Albumin/Globulin Ratio 1.2 Lipase 112 - Medical Decision Making Vital signs are normal, patient is anxious but otherwise in no distress. She was treated with IV fluids, Zofran, morphine and a reevaluation she is appearing and feeling much better. She was given a p.o. challenge and did well without throwing up, and feels better enough to go home. Given a prescription for some Zofran, her potassium is good today and does not require replacement. Her labs show mild prerenal azotemia, mildly depressed sodium and chloride, mildly elevated bilirubin which she has had before, I do not think any of this needs to be emergently addressed other than the IV fluids that she obtained. She is on Protonix and advised to continue this and follow-up with GI as scheduled. We discussed reasons to return. ED Disposition - Plan for ED Patient: Disposition: Home or Assisted Living Diagnosis: Acute gastritis without bleeding, Cyclic vomiting syndrome Instructions: ED Gastritis (Adult) Prescriptions: Ondansetron [Zofran Odt] 8 mg PO Q8H PRN PRN #20 tab PRN Reason: Nausea Prescription Printed Referrals: Tae Banegas DO [Primary Care Provider] - 3-5 Days if not improving (And Dr. Nettles as scheduled)
[2021-01-19 00:49] LABS: Absolute Lymphocyte Count 2.34 X10^3/uL (0.83-4.51); Absolute Neutrophil Count 7.9 X10^3/uL (2.0-7.7); Basophil# 0.06 X10^3/uL; Basophil% 0.6 % (0-1); Eosinophil# 0.03 X10^3/uL; Eosinophils% 0.3 % (0-5); Hematocrit 43.3 % (37-47); Hemoglobin 15.3 g/dL (12.0-15.0); Lymphocyte # 2.34 X10^3/ul (4.0); Lymphocyte % 21.5 % (19-41); Mean Corp Hgb Conc 35.3 g/dL (32-36); Mean Corpuscular Hgb 31.2 pg (27.0-32.0); Mean Corpuscular Volume 88.2 fL (81-99); Mean Platelet Vol. 9.3 fl (6.2-12.0); Monocyte# 0.53 X10^3/uL; Monocyte% 4.9 % (0-10); NRBC Flagged by Analyzer 0 % (0-5); Neutrophil # 7.89 X10^3/uL (2.7-7.7); Neutrophil % 72.3 % (47-70); Platelet Count 327 K/mm3 (150-450); RBC Distribution Width CV 12.1 % (11.6-14.6); RBC Distribution Width SD 39.4 fl (35.1-43.9); Red Blood Count 4.91 M/mm3 (4.2-5.4); White Blood Count 10.9 K/mm3 (4.4-11.0)
[2021-01-19] MEDS: 0.9% Normal Saline 1,000 ML 1000 ML IV (00:51)
[2021-01-19] MEDS: Morphine 4 MG/ML Syringe IV (00:52)
[2021-01-19] MEDS: Ondansetron 4 MG/2 ML Vial IV (00:52)
[2021-01-19 01:01] LABS: ALB/GLOB Ratio 1.2 RATIO (0.9-2.4); AST(SGOT) 20 U/L (15-37); Alanine Aminotransfer ALT/SGPT 25 U/L (13-56); Alkaline Phosphatase 86 U/L (45-117); Anion Gap 14 (5-15); BUN 27 mg/dL (7-18); BUN/Creat Ratio 17.5 RATIO (10-20); Calcium,Total 8.8 mg/dL (8.5-10.1); Chloride 97 mmol/L (98-107); Creatinine, Serum 1.54 mg/dL (0.55-1.02); EST Glomerular Filtration Rate 36 mL/min (>60); Est Glom Filt Rate - Afr Amer 43 mL/min (>60); Estimated Creatinine Clearance 35.27 ml/min; Globulin 3.3 g/dL (2.2-4.2); Glucose 143 mg/dL (74-106); Lipase 112 U/L (73-393); Potassium 3.5 mmol/L (3.5-5.1); Protein, Total 7.3 g/dL (6.4-8.2); Sodium Level 135 mmol/L (136-145)
[2021-01-19 02:44] VITALS: PULSE 74; RESP 18; O2SAT 96
[2021-01-19 03:14] VITALS: BP 134/62; PULSE 74; RESP 18; O2SAT 96
== END 2021-01-19 03:14 | disposition home or self-care (01) ==
PROVIDERS: Emergency Provider Emergency Medicine; PCP Student in an Organized Health Care Education/Training Program
DX: K29.00 Acute gastritis without bleeding (principal); R11.15 Cyclical vomiting syndrome unrelated to migraine; I25.10 Atherosclerotic heart disease of native coronary artery without angina pectoris; I48.0 Paroxysmal atrial fibrillation; I73.9 Peripheral vascular disease, unspecified; I10 Essential (primary) hypertension; Z79.82 Long term (current) use of aspirin; Z79.4 Long term (current) use of insulin; Z79.899 Other long term (current) drug therapy; Z85.528 Personal history of other malignant neoplasm of kidney; Z87.891 Personal history of nicotine dependence; Z90.5 Acquired absence of kidney
CPT/HCPCS: 80053; 83690; 85025; 96361; 96374; 96375; 99285; J7030; A4216; J2405

== ENCOUNTER 2021-01-23 11:53 | Emergency (ER) | payer MEDICARE, SELFPAY ==
[2021-01-23 11:54] VITALS: BP 147/112; PULSE 105; RESP 20; TEMP 35.9; O2SAT 97; BMI 23.0
--- NOTE | 2021-01-23 12:06 | ED.DCSUM_ITS ---
History of Present Illness Chief Complaint: Nausea/Vomiting Informant: Patient Onset: Days Context: Sudden Onset Timing: Continuous - Reports generalized abdominal pain is constant, Intermittent - The vomiting is intermittent Quality: Pain, due to cyclic vomiting Location: GI Current Severity: Moderate Maximum Severity: Severe Worsened by: Nothing Relieved by: Nothing Associated Symptoms: Thirst and dry mouth Narrative: Patient is an elderly woman with history of cyclic vomiting. She reports the vomiting started 4 days ago. Today she has vomited 5 times since awakening. Yesterday she vomited 6-7 times and has averaged approximately 7 times per day since onset. She does complain of dry mouth and thirst. She denies orthostatic symptoms. She denies diarrhea or constipation. She denies hematemesis. She denies fever or chills. She denies headache. She denies ocular, visual auditory symptoms. She denies cardiac or respiratory symptoms. She denies urologic symptoms. She denies paresthesia or anesthesia. Prior similar symptoms: Yes Recent Illness/Hospitalization: Yes - Admitted several times in December - Past Medical History (1) Abdominal pain Status: Acute (2) Atherosclerosis of coronary artery of [place] heart without angina pectoris Status: Chronic (3) Paroxysmal atrial fibrillation Status: Chronic Comment: Failed DCCV; failed drug therapy; radiofrequency ablation; (4) Peripheral vascular occlusive disease Status: Chronic (5) Renal cell carcinoma Status: Chronic Past Medical History - Allergies and Home Meds Allergies/Adverse Reactions: Allergies diphenhydramine HCl [From Benadryl] Adverse Reaction (Verified 01/23/21 11:54) restless legs dofetilide Adverse Reaction (Verified 01/23/21 11:54) LONG QT 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 partial nephrectomy for cancer. Lives: Alone Smoking Status: Former smoker Alcohol: None Drugs: None - Family History Maternal Family History: Family History (Last Reviewed 01/01/21 @ 12:[address] Sudarshan Antunez MD) Mother Cancer Father Colon cancer Heart disease Sister Colon cancer Family History: Reports: No pertinent history Paternal Family History: Family History (Last Reviewed 01/01/21 @ 12:[address] Sudarshan Antunez MD) Mother Cancer Father Colon cancer Heart disease Sister Colon cancer Family History: Reports: No pertinent history Review of Systems General: Reports: Malaise. Denies: Chills, Fever, Subjective, Sweats Eyes: Denies: Visual changes - bilaterally ENT: Denies: Rhinorrhea, Sore throat Cardiovascular: Denies: Chest pain, Palpitations Respiratory: Denies: Dyspnea, Cough, Dyspnea on exertion Gastrointestinal: Reports: Abdominal pain, Nausea, Vomiting. Denies: Diarrhea, Constipation, Melena, Hematochezia, -, - Genitourinary: Denies: Dysuria, Hematuria, Frequency Musculoskeletal: Denies: Myalgias, Arthralgias, Neck pain, Back pain, Swelling, Extremity Pain Skin: Denies: Rash, Wounds Neurological: Denies: Headache, Weakness, Numbness Psych: Reports: Depression Endocrine: Denies: Polyuria, Polydipsia Allergy: Denies: Uticaria Physical Exam Vital Signs/Narrative: Vital Signs Temp Pulse Resp BP Pulse Ox 01/23/21 11:54 96.7 F L 105 H 20 H 147/112 H 97 Inital Vital Signs reviewed: Yes General: Well nourished, Well developed, - - There was no eye contact during the history and physical. When I was leaving the room after informing patient of work-up and treatment plan she stopped moaning and asked if I would give her pain medicine. Patient was informed that I would use the cyclic vomiting order set. Head: Normocephalic, Atraumatic Eyes: Perrl, EOMI. Negative for: Pale conjunctiva ENT: No rhinorrhea, Dry mucous membranes. Negative for: Moist mucous membranes Neck: Supple, Nontender, No lymphadenopathy, No JVD Cardiovascular: Regular rate, Regular rhythm, No murmurs, Normal S1, Normal S2 Respiratory: No distress, CTA bilaterally, Chest nontender Abdomen: Soft, Nontender, Nondistended, Normal bowel sounds, No masses Rectal: Deferred Back: Nontender, Normal Inspection Extremities: Nontender, No edema Skin: Normal color, No rash Neurological: Alert, Oriented x3, Cranial nerves II-XII grossly intact, Normal Strength, Normal Sensation Psychological: - - Affect is restrictive and mood is exaggerated Diagnostic/Tx/Re-eval Laboratory Results 03/04/21 12:10 Sodium 136 Potassium 3.2 L Chloride 98 Carbon Dioxide 22.0 Anion Gap 16 H BUN 19 H Creatinine 1.27 H Estim Creat Clear Calc 42.77 Est GFR (MDRD) Af Amer 54 L Est GFR (MDRD) Non-Af 44 L BUN/Creatinine Ratio 15.0 Glucose 236 H Calcium 9.3 Most recent creatinine was 1.54. Creatinine on January 06 was normal. Glucose is elevated 236 and potassium is below normal, 3.2 - Medical Decision Making Because patient is elderly with multiple medical problems and clinically is dehydrated basic metabolic panel was obtained to assess electrolytes and specifically renal function. Cyclic vomiting order set was initiated. She will receive 1 L of normal saline for hydration. I was informed by patient's nurse at 1229 that she was surprised she did not get any pain medicine. She specifically asked for morphine. She was informed that morphine causes nausea and since she is having significant nausea and vomiting it is not appropriate. I informed the nurse I am in agreement. Patient was reassessed at 1338. She is no longer complaining of pain. She has had no vomiting in the emergency department. Plan is to discharge to home ED Disposition - Plan for ED Patient: Disposition: Home or Assisted Living Diagnosis: Cyclic vomiting syndrome, Renal insufficiency, mild, Mild dehydration Instructions: ED Renal Insufficiency, ED Dehydration (Adult) Referrals: Tae Banegas DO [Primary Care Provider] - As Needed
[2021-01-23] MEDS: 0.9% Normal Saline 1,000 ML 1000 ML IV (12:14)
[2021-01-23] MEDS: Ondansetron 4 MG/2 ML Vial IV (12:15)
[2021-01-23] MEDS: LORazepam 2 MG/ML Syringe 0.5 MG IV (12:15)
--- NOTE | 2021-01-23 12:28 | ED.RN ---
PT DROVE SELF TO ED. AWARE UNABLE TO DRIVE
[2021-01-23] MEDS: Famotidine 200 MG/20 ML MDV 20 MG in 0.9% Normal Saline (Pres. free 8 ML 300 MG IV (12:30)
[2021-01-23 12:32] LABS: Anion Gap 16 (5-15); BUN 19 mg/dL (7-18); Calcium,Total 9.3 mg/dL (8.5-10.1); Chloride 98 mmol/L (98-107); Creatinine, Serum 1.27 mg/dL (0.55-1.02); EST Glomerular Filtration Rate 44 mL/min (>60); Est Glom Filt Rate - Afr Amer 54 mL/min (>60); Estimated Creatinine Clearance 42.77 ml/min; Glucose 236 mg/dL (74-106); Potassium 3.2 mmol/L (3.5-5.1); Sodium Level 136 mmol/L (136-145)
--- NOTE | 2021-01-23 12:36 | ED.RN ---
pt states the last 2 times i have been here they have given me morphine, it is the only thing that works for the nausea
--- NOTE | 2021-01-23 13:10 | ED.RN ---
pt states feels better, except for pain
--- NOTE | 2021-01-23 13:44 | ED.RN ---
pt did not recieve thorazine/benadryl as pt was better after being told she could not have morphine. pt to be referred for care plan per dr madsen
[2021-01-23 13:53] VITALS: BP 144/88; PULSE 90; RESP 18; O2SAT 99
== END 2021-01-23 14:21 | disposition home or self-care (01) ==
PROVIDERS: Emergency Provider Emergency Medicine; PCP Student in an Organized Health Care Education/Training Program
DX: R11.15 Cyclical vomiting syndrome unrelated to migraine (principal); E86.0 Dehydration; N28.9 Disorder of kidney and ureter, unspecified; I48.0 Paroxysmal atrial fibrillation; I25.10 Atherosclerotic heart disease of native coronary artery without angina pectoris; I73.9 Peripheral vascular disease, unspecified; Z79.82 Long term (current) use of aspirin; Z79.4 Long term (current) use of insulin; Z79.899 Other long term (current) drug therapy; Z87.891 Personal history of nicotine dependence; Z85.528 Personal history of other malignant neoplasm of kidney
CPT/HCPCS: 80048; 96361; 96374; 96375; 99283; J7030; A4216; J2405; J3490

== ENCOUNTER 2021-01-25 03:14 | Emergency (ER) | payer MEDICARE, SELFPAY ==
[2021-01-25 03:14] VITALS: BP 196/90; PULSE 92; RESP 15; TEMP 36.6; O2SAT 100; BMI 24.5
[2021-01-25] MEDS: LORazepam 2 MG/ML Syringe 0.5 MG IV (04:24)
[2021-01-25 04:25] LABS: Absolute Lymphocyte Count 1.78 X10^3/uL (0.83-4.51); Absolute Neutrophil Count 5.5 X10^3/uL (2.0-7.7); Basophil# 0.03 X10^3/uL; Basophil% 0.4 % (0-1); Eosinophil# 0.09 X10^3/uL; Eosinophils% 1.1 % (0-5); Hematocrit 41.6 % (37-47); Hemoglobin 14.9 g/dL (12.0-15.0); Lymphocyte # 1.78 X10^3/ul (4.0); Lymphocyte % 22.5 % (19-41); Mean Corp Hgb Conc 35.8 g/dL (32-36); Mean Corpuscular Hgb 30.8 pg (27.0-32.0); Mean Corpuscular Volume 86.1 fL (81-99); Mean Platelet Vol. 9.6 fl (6.2-12.0); Monocyte% 6.3 % (0-10); NRBC Flagged by Analyzer 0 % (0-5); Neutrophil # 5.49 X10^3/uL (2.7-7.7); Neutrophil % 69.3 % (47-70); Platelet Count 278 K/mm3 (150-450); RBC Distribution Width CV 11.9 % (11.6-14.6); RBC Distribution Width SD 37.3 fl (35.1-43.9); Red Blood Count 4.83 M/mm3 (4.2-5.4); White Blood Count 7.9 K/mm3 (4.4-11.0)
[2021-01-25] MEDS: Ondansetron 4 MG/2 ML Vial IV (04:25)
[2021-01-25] MEDS: Haloperidol Lactate 5 MG/ML Vial 2 MG IV ×2 (04:27→05:29)
[2021-01-25] MEDS: Famotidine 200 MG/20 ML MDV 20 MG in 0.9% Normal Saline (Pres. free 8 ML 300 MG IV (04:29)
[2021-01-25] MEDS: 0.9% Normal Saline 1,000 ML 1000 ML IV (04:31)
--- NOTE | 2021-01-25 04:31 | ED.DCSUM_ITS ---
History of Present Illness Chief Complaint: Abd Pain Informant: Patient - Abdominal Pain/Flank Pain Onset: Days Context: Gradual Onset Timing: Continuous Quality: Dull Location: Epigastric - Nausea/Vomiting/Emesis GI Symptom: Nausea, Vomiting Quality: Nonbilious. Negative for: Blood streaks, Coffee ground, Hematemesis Narrative: Patient is a 70-year-old female well-known to the ER with a history of cyclic vomiting syndrome presenting with worsening abdominal pain and vomiting. Patient was seen in the ER couple days ago for the same complaint. Patient states for the past 3 days her symptoms been worsening. She notes his episodes been going off and on for the past 4 weeks. She has Zofran and Nexium at home but it is not working. She denies any blood in her vomit or her stool. She states she had a normal bowel movement yesterday morning. She describes the pain as dull and in her epigastric region but severe. She had about 5 episodes of vomiting today. Patient does follow with a GI doctor at [facility]. Patient states this episode is no different than her prior episodes. No other complaints at this time. 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 partial nephrectomy for cancer. Smoking Status: Former smoker - Family History Maternal Family History: Family History (Last Reviewed 01/01/21 @ 12:[address] Sudarshan Antunez MD) Mother Cancer Father Colon cancer Heart disease Sister Colon cancer Family History: Reports: No pertinent history Paternal Family History: Family History (Last Reviewed 01/01/21 @ 12:[address] Sudarshan Antunez MD) Mother Cancer Father Colon cancer Heart disease Sister Colon cancer Family History: Reports: No pertinent history Review of Systems General: Reports: Malaise. Denies: Chills, Fever, Sweats Eyes: Denies: Visual changes - bilaterally, Diplopia ENT: Denies: Rhinorrhea, Sore throat Cardiovascular: Denies: Chest pain, Palpitations Respiratory: Denies: Dyspnea, Cough, Dyspnea on exertion Gastrointestinal: Reports: Abdominal pain, Nausea, Vomiting. Denies: Diarrhea, Melena, Hematochezia Genitourinary: Denies: Dysuria, Hematuria, Frequency Musculoskeletal: Denies: Back pain, Extremity Pain Skin: Denies: Rash, Wounds Neurological: Denies: Headache, Weakness, Numbness Physical Exam Vital Signs/Narrative: Vital Signs Temp Pulse Resp BP Pulse Ox 01/25/21 03:14 97.9 F 92 15 196/90 H 100 Inital Vital Signs reviewed: Yes General: Well nourished, Well developed, No Acute Distress Head: Normocephalic, Atraumatic Eyes: Perrl, EOMI ENT: Moist mucous membranes, No rhinorrhea Neck: Supple, Nontender Cardiovascular: Regular rate, Regular rhythm, No murmurs Respiratory: No distress, CTA bilaterally, Chest nontender Abdomen: Soft, Nondistended, Normal bowel sounds, Tender, Guarding - Voluntary. Negative for: Rebound tenderness, Pulsatile mass Back: Nontender, Normal Inspection Extremities: Nontender, No edema Skin: Normal color, No rash Neurological: Alert, Oriented x3, Cranial nerves II-XII grossly intact, Normal Strength, Normal Sensation Psychological: Normal affect, Normal Mood Diagnostic/Tx/Re-eval Laboratory Data 01/25/21 01/25/21 04:20 04:20 WBC 7.9 RBC 4.83 Hgb 14.9 Hct 41.6 MCV 86.1 MCH 30.8 MCHC 35.8 RDW Std Deviation 37.3 RDW Coeff of Ray 11.9 Plt Count 278 MPV 9.6 Immature Gran % (Auto) 0.400 Neut % (Auto) 69.3 Lymph % (Auto) 22.5 [place] % (Auto) 6.3 Eos % (Auto) 1.1 Baso % (Auto) 0.4 Absolute Neuts (auto) 5.5 Absolute Lymphs (auto) 1.78 Nucleated RBC % 0 Sodium 134 L Potassium 3.0 L Chloride 93 L Carbon Dioxide 29.0 Anion Gap 12 BUN 12 Creatinine 1.14 H Estim Creat Clear Calc 47.64 Est GFR (MDRD) Af Amer 61 Est GFR (MDRD) Non-Af 50 L BUN/Creatinine Ratio 10.5 Glucose 157 H Calcium 9.3 Total Bilirubin 1.30 H AST 18 ALT 23 Alkaline Phosphatase 80 Troponin I < 0.015 Total Protein 7.2 Albumin 4.0 Globulin 3.2 Albumin/Globulin Ratio 1.2 Lipase 156 - Medical Decision Making Patient evaluated for chronic abdominal pain that is worsening. Patient has a history of cyclic vomiting. She is tachycardic however she does not appear significantly dehydrated. She has tenderness to her abdomen but she states this is her chronic pain. Lab work is actually slightly improved compared to her prior ER visit. She does not have any signs of acute dehydration or other acute abnormalities. I do not think imaging is indicated. Patient is initially treated with fluids, Ativan, Zofran and 2 mg IV Haldol. She does have improvement of her nausea but continues to have abdominal pain. She is given another 2 mg IV Haldol. On reevaluation she is feeling better. She is requesting a prescription for Ativan however I did prison classification counselor her that this is a chronic condition and I do not feel comfortable prescribing a benzodiazepine for it. She is encouraged to follow-up with her primary care doctor for this. Given patient has multiple ER visits for the same complaint I did also refer her for an ED care plan. Patient is counseled on signs and symptoms requiring return to the emergency room. Patient verbalizes agreement and understand this plan. Patient discharged home in stable and improved condition. Patient's family members able to pick her up as I do not think patient is safe to drive given her medication she received in the ER. ED Disposition - Plan for ED Patient: Disposition: Home or Assisted Living Diagnosis: Abdominal pain, Cyclic vomiting syndrome Instructions: ED Abdominal Pain Unkn Cause Fem Referrals: Tae Banegas DO [Primary Care Provider] - Additional Instructions: Your lab work is improved. You do not have any signs of significant dehydration or electrolyte abnormality. Please follow-up with your primary care doctor and GI doctor.
[2021-01-25 04:34] VITALS: BP 152/69; PULSE 93; RESP 28; O2SAT 98
[2021-01-25 05:07] LABS: ALB/GLOB Ratio 1.2 RATIO (0.9-2.4); AST(SGOT) 18 U/L (15-37); Alanine Aminotransfer ALT/SGPT 23 U/L (13-56); Alkaline Phosphatase 80 U/L (45-117); Anion Gap 12 (5-15); BUN 12 mg/dL (7-18); BUN/Creat Ratio 10.5 RATIO (10-20); Calcium,Total 9.3 mg/dL (8.5-10.1); Chloride 93 mmol/L (98-107); Creatinine, Serum 1.14 mg/dL (0.55-1.02); EST Glomerular Filtration Rate 50 mL/min (>60); Est Glom Filt Rate - Afr Amer 61 mL/min (>60); Estimated Creatinine Clearance 47.64 ml/min; Globulin 3.2 g/dL (2.2-4.2); Glucose 157 mg/dL (74-106); Lipase 156 U/L (73-393); Protein, Total 7.2 g/dL (6.4-8.2); Sodium Level 134 mmol/L (136-145)
[2021-01-25 05:36] VITALS: BP 143/61; PULSE 102; RESP 24; O2SAT 97
[2021-01-25 07:03] VITALS: BP 147/69; PULSE 121; RESP 15; O2SAT 97
== END 2021-01-25 07:04 | disposition home or self-care (01) ==
PROVIDERS: Emergency Provider Emergency Medicine; PCP Student in an Organized Health Care Education/Training Program
DX: R10.9 Unspecified abdominal pain (principal); G89.29 Other chronic pain; R11.15 Cyclical vomiting syndrome unrelated to migraine; I25.10 Atherosclerotic heart disease of native coronary artery without angina pectoris; I10 Essential (primary) hypertension; Z79.82 Long term (current) use of aspirin; Z79.4 Long term (current) use of insulin; Z79.899 Other long term (current) drug therapy; Z87.891 Personal history of nicotine dependence; Z90.49 Acquired absence of other specified parts of digestive tract; Z90.5 Acquired absence of kidney; Z90.710 Acquired absence of both cervix and uterus
CPT/HCPCS: 80053; 83690; 84484; 85025; 96361; 96374; 96375; 96376; 99285; J7030; A4216; J2405; J3490

== ENCOUNTER 2021-01-30 19:37 | Emergency (ER) | payer MEDICARE, SELFPAY ==
[2021-01-30 19:39] VITALS: BP 139/95; PULSE 120; RESP 16; TEMP 36.4; O2SAT 96; BMI 22.5
--- NOTE | 2021-01-30 19:55 | ED.DCSUM_ITS ---
History of Present Illness Chief Complaint: Abd Pain Informant: Patient Narrative: 70-year-old female with a history of cyclic vomiting syndrome presents with my chronic pain and cyclic vomiting. She has an appoint with her human resources team member in about 2 weeks. She states that she has called them because she has been up in the emergency department several times recently and they gave her [id number] Nexium and Zofran which are not helping. She specifically wants some Ativan. She states that last time she was here they gave her a medicine that aggravated her restless leg. On chart review appears to be Haldol. No fevers. Normal bowel movement today. She describes her pain is epigastric in nature and exactly like her chronic abdominal pain. - Past Medical History (1) Cyclic vomiting syndrome Status: Chronic (2) Essential (primary) hypertension Status: Chronic (3) Paroxysmal atrial fibrillation Status: Chronic Comment: Failed DCCV; failed drug therapy; radiofrequency ablation; (4) Peripheral vascular occlusive disease Status: Chronic (5) Persistent atrial fibrillation Status: Chronic Comment: PVI w/ RFA (6) Renal cell carcinoma Status: Chronic (7) H/O coronary artery bypass surgery Status: Resolved Comment: CABG x 2 FA[facility]-LAD, SVG-RPDA 01/29/2003 Past Medical History - Allergies and Home Meds Allergies/Adverse Reactions: Allergies diphenhydramine HCl [From Benadryl] Adverse Reaction (Verified 01/30/21 19:37) restless legs dofetilide Adverse Reaction (Verified 01/30/21 19:37) LONG QT 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 partial nephrectomy for cancer. Smoking Status: Former smoker Alcohol: None Drugs: None - Family History Maternal Family History: Family History (Last Reviewed 01/01/21 @ 12:[address] Sudarshan Antunez MD) Mother Cancer Father Colon cancer Heart disease Sister Colon cancer Family History: Reports: No pertinent history Paternal Family History: Family History (Last Reviewed 01/01/21 @ 12:[address] Sudarshan Antunez MD) Mother Cancer Father Colon cancer Heart disease Sister Colon cancer Family History: Reports: No pertinent history Review of Systems General: Denies: Chills, Fever, Sweats Eyes: Denies: Visual changes - bilaterally, Diplopia ENT: Denies: Rhinorrhea, Sore throat Cardiovascular: Denies: Chest pain, Palpitations Respiratory: Denies: Dyspnea, Cough, Dyspnea on exertion Gastrointestinal: Reports: Abdominal pain, Nausea, Vomiting. Denies: Diarrhea, Constipation, Melena, Hematochezia Genitourinary: Denies: Dysuria, Hematuria, Frequency Musculoskeletal: Denies: Back pain, Extremity Pain Skin: Denies: Rash, Wounds Neurological: Denies: Headache, Weakness, Numbness Physical Exam Vital Signs/Narrative: Vital Signs Temp Pulse Resp BP Pulse Ox 01/30/21 19:39 97.5 F L 120 H 16 139/95 H 96 Inital Vital Signs reviewed: Yes General: Well nourished, Well developed, No Acute Distress Head: Normocephalic, Atraumatic Eyes: Perrl, EOMI ENT: Moist mucous membranes, No rhinorrhea Neck: Supple, Nontender Cardiovascular: Regular rate, Regular rhythm, No murmurs Respiratory: No distress, CTA bilaterally, Chest nontender Abdomen: Soft, Nondistended, Normal bowel sounds, Tender Back: Nontender, Normal Inspection Extremities: Nontender, No edema Skin: Normal color, No rash Neurological: Alert, Oriented x3, Cranial nerves II-XII grossly intact, Normal Strength, Normal Sensation Psychological: Normal affect, Normal Mood Diagnostic/Tx/Re-eval Laboratory Last Values Sodium 135 mmol/L (136-145) L 01/30/21 20:40 Potassium 3.5 mmol/L (3.5-5.1) 01/30/21 20:40 Chloride 97 mmol/L (98-107) L 01/30/21 20:40 Carbon Dioxide 28.0 mmol/L (21.0-32.0) 01/30/21 20:40 Anion Gap 10 (5-15) 01/30/21 20:40 BUN 11 mg/dL (7-18) 01/30/21 20:40 Creatinine 1.26 mg/dL (0.55-1.02) H 01/30/21 20:40 Estim Creat Clear Calc 43.11 ml/min 01/30/21 20:40 Est GFR (MDRD) Af Amer 54 mL/min (>60) L 01/30/21 20:40 Est GFR (MDRD) Non-Af 45 mL/min (>60) L 01/30/21 20:40 BUN/Creatinine Ratio 8.7 RATIO (10-20) L 01/30/21 20:40 Glucose 158 mg/dL (74-106) H 01/30/21 20:40 Calcium 9.2 mg/dL (8.5-10.1) 01/30/21 20:40 Magnesium 1.8 mg/dL (1.6-2.6) 01/30/21 20:40 Total Bilirubin 1.10 mg/dL (0.20-1.00) H 01/30/21 20:40 AST 24 U/L (15-37) 01/30/21 20:40 ALT 26 U/L (13-56) 01/30/21 20:40 Alkaline Phosphatase 73 U/L (45-117) 01/30/21 20:40 Total Protein 6.9 g/dL (6.4-8.2) 01/30/21 20:40 Albumin 3.9 g/dL (3.2-5.0) 01/30/21 20:40 Globulin 3.0 g/dL (2.2-4.2) 01/30/21 20:40 Albumin/Globulin Ratio 1.3 RATIO (0.9-2.4) 01/30/21 20:40 - Medical Decision Making Patient received Ativan Pepcid and Zofran. She has not had any vomiting since she has been in the department. She is resting comfortably on repeat examination. He tells me that she has been eating bananas and trying to stay hydrated. I saw that about a year and a half ago she was receiving prescriptions for Ativan for primary care but then it stopped. She states that she does not know why that happened. Ativan does seem to help her when she comes in. I will write for a small amount of Ativan as this seems to help her to try to limit how many time she has to come to the emergency department. she should talk to her doctors about this. ED Disposition - Plan for ED Patient: Disposition: Home or Assisted Living Diagnosis: Cyclic vomiting syndrome, Chronic abdominal pain Prescriptions: Lorazepam [Ativan] 0.5 mg PO TID PRN #10 tab PRN Reason: Cyclic vomiting syndrome Prescription Printed Referrals: Tae Banegas DO [Primary Care Provider] - Keep Dick appointment Additional Instructions: Follow-up with your human resources team member as scheduled Do not take trazodone and Ativan within at least 6 hours of each other.
[2021-01-30] MEDS: Ondansetron 4 MG/2 ML Vial IV (20:47)
[2021-01-30] MEDS: Famotidine 200 MG/20 ML MDV 20 MG in 0.9% Normal Saline (Pres. free 8 ML 300 MG IV (20:47)
[2021-01-30] MEDS: LORazepam 2 MG/ML Syringe 1 MG IV (20:47)
[2021-01-30 21:37] LABS: ALB/GLOB Ratio 1.3 RATIO (0.9-2.4); AST(SGOT) 24 U/L (15-37); Alanine Aminotransfer ALT/SGPT 26 U/L (13-56); Albumin, Serum 3.9 g/dL (3.2-5.0); Alkaline Phosphatase 73 U/L (45-117); Anion Gap 10 (5-15); BUN 11 mg/dL (7-18); BUN/Creat Ratio 8.7 RATIO (10-20); Calcium,Total 9.2 mg/dL (8.5-10.1); Chloride 97 mmol/L (98-107); Creatinine, Serum 1.26 mg/dL (0.55-1.02); EST Glomerular Filtration Rate 45 mL/min (>60); Est Glom Filt Rate - Afr Amer 54 mL/min (>60); Estimated Creatinine Clearance 43.11 ml/min; Glucose 158 mg/dL (74-106); Magnesium 1.8 mg/dL (1.6-2.6); Potassium 3.5 mmol/L (3.5-5.1); Protein, Total 6.9 g/dL (6.4-8.2); Sodium Level 135 mmol/L (136-145)
[2021-01-30 22:24] VITALS: PULSE 110; RESP 18; O2SAT 97
--- NOTE | 2021-02-27 14:41 | CM.ED ---
Social Work ED Care Plan reviewed and approved by Dr. Farnsworth. ED Care Plan entered. Resources collected and mailed to patient. Telephone call to patient to updated patient on ED Care Plan. No answer. No voicemail. Will continue to follow as needed. Tomeka FRANCISCO, LORE[place]-S
== END 2021-01-30 22:24 | disposition home or self-care (01) ==
PROVIDERS: Emergency Provider Emergency Medicine; PCP Student in an Organized Health Care Education/Training Program
DX: R11.15 Cyclical vomiting syndrome unrelated to migraine (principal); R10.13 Epigastric pain; G89.29 Other chronic pain; I48.0 Paroxysmal atrial fibrillation; I10 Essential (primary) hypertension; I73.9 Peripheral vascular disease, unspecified; Z79.82 Long term (current) use of aspirin; Z79.4 Long term (current) use of insulin; Z79.899 Other long term (current) drug therapy; Z87.891 Personal history of nicotine dependence; Z85.528 Personal history of other malignant neoplasm of kidney; Z95.1 Presence of aortocoronary bypass graft
CPT/HCPCS: 80053; 83735; 96374; 96375; 99285; A4216; J3490

== ENCOUNTER 2021-07-07 19:38 | Emergency (ER) | payer MEDICARE, SELFPAY ==
[2021-07-07 19:39] VITALS: BP 155/96; PULSE 118; RESP 18; TEMP 36.2; O2SAT 98; BMI 23.4
--- NOTE | 2021-07-07 19:51 | EDS_ITS ---
HPI History of Present Illness Chief Complaint: General Illness Detail of Chief Complaint: Cyclic vomiting and atrial fibrillation Informant: patient Onset/Context/Timing Onset: Today and Hours Context: Sudden Onset Timing: Continuous (The atrial fibrillation is constant) and Intermittent (Cyclic vomiting is intermittent) Quality: Numerous episodes of emesis since this morning and fast irregular heartbeat Location: GI and cardiovascular Current Severity: Severe Maximum Severity: Severe Worsened by: Unknown Relieved by: Nothing Associated Symptoms Associated Symptoms: I do not feel well and I have abdominal pain Narrative Narrative: Patient is an elderly woman with history of cyclic vomiting, paroxysmal atrial fibrillation, atherosclerotic heart disease status post bypass surgery, essential hypertension, peripheral arterial disease and renal carcinoma who presents because of vomiting several times since this morning and fast irregular heartbeat. She denies fever, chills night sweats. She denies headache, visual, ocular auditory symptoms. She does complain of thirst and dry mouth. She states her heart is pounding and jumpy . She denies shortness of breath. Denies [place] exertion. Denies orthopnea PND. She does complain abdominal pain that midline and supraumbilical. There is no blood or coffee grounds in the emesis. She denies black or maroon-colored stool. She denies dysuria, frequency, urgency or hematuria. She denies paresthesia, anesthesia motors. She denies vertiginous symptoms. Prior similar symptoms: Yes Recent Illness/Hospitalization: Yes [facility] Medical History (Updated 07/07/21 @ 23:[address] Cristobal Scott MD) Anxiety Atherosclerosis of coronary artery of [place] heart without angina pectoris Chronic kidney disease, stage 3 Chronic vomiting Essential (primary) hypertension Gastro-esophageal reflux disease without esophagitis Hypomagnesemia Mild chronic obstructive pulmonary disease NPDR (nonproliferative diabetic retinopathy) Peripheral neuropathy Peripheral vascular occlusive disease Persistent atrial fibrillation Renal cell carcinoma Type II diabetes mellitus Home Medications atorvastatin 80 mg PO DAILY 07/31/17 [History Last Taken 12/29/20] insulin NPH and regular human 22 unit SQ BID 07/31/17 [History Last Taken 12/31/20] ropinirole 5 mg PO BID 07/31/17 [History Last Taken 12/29/20] furosemide 20 mg PO DAILY 01/10/19 [History Last Taken 12/29/20] promethazine 25 mg PO Q6H PRN PRN #10 tab 09/09/19 [Rx Last Taken 12/25/20] escitalopram oxalate 20 mg tablet 20 mg PO DAILY tab 10/24/19 [History Last T aken 12/29/20] aspirin 1 tab PO DAILY 01/01/21 [History Last Taken 12/29/20] trazodone 50 mg PO QHS 01/01/21 [History Last Taken 12/29/20] metoprolol succinate 25 mg PO DAILY #60 tab 01/03/21 [Rx Last Taken Unknown] pantoprazole 40 mg PO DAILY #60 tab 01/03/21 [Rx Last Taken Unknown] acetaminophen 650 mg PO Q6H PRN PRN tab 01/06/21 [Rx Last Taken Unknown] ondansetron HCl 8 mg PO Q8H PRN PRN #15 tab 01/06/21 [Rx Last Taken Unknown] lorazepam 0.5 mg PO TID PRN #10 tab 01/30/21 [Rx Last Taken Unknown] esomeprazole magnesium 40 mg DAILY 07/07/21 [History Last Taken Unknown] losartan 100 mg PO DAILY 07/07/21 [History Last Taken Unknown] rivaroxaban [Xarelto] 20 mg DAILY 07/07/21 [History Last Taken Unknown] sertraline 100 mg DAILY 07/07/21 [History Last Taken Unknown] Allergy/AdvReac Type Severity Reaction Status Date / Time diphenhydramine HCl AdvReac restless Verified 07/07/21 19:41 [From Benadryl] legs dofetilide AdvReac LONG QT Verified 07/07/21 19:41 haloperidol [From Haldol] AdvReac Other Verified 07/07/21 19:42 metoclopramide [From Reglan] AdvReac restless Verified 07/07/21 19:41 legs Family History Mother Cancer Stomach Father Colon cancer Heart disease Sister Colon cancer Surgical History H/O coronary artery bypass surgery (01/29/03) H/O laminectomy History of angioplasty of peripheral vessel (07/2013) History of cardioversion (2014) History of cholecystectomy (08/2019) History of colonoscopy History of esophagogastroduodenoscopy (EGD) (01/2018) History of hysterectomy (1995) History of open reduction and internal fixation (ORIF) procedure History of partial nephrectomy History of radiofrequency ablation procedure for cardiac arrhythmia (03/19/16) Social History (Updated 07/07/21 @ 19:[address] Cristobal Scott MD) household members: none Smoking Status: Former smoker pack-years: 40 alcohol intake: current alcohol intake frequency: other substance use type: does not use ROS ROS ED Constitutional Constitutional ED: Denies chills, fever(s), subjective, sweats or weight loss Eyes Eyes: Denies blurry vision, change in vision or diplopia ENT ENT ED: Denies ear pain, rhinorrhea or sore throat Cardiovascular Cardiovascular: Reports palpitations and racing heartbeat; Denies chest pain, orthopnea or paroxysmal nocturnal dyspnea Respiratory/Chest Respiratory/Chest: Denies cough, dyspnea, dyspnea on exertion, orthopnea or paroxysmal nocturnal dyspnea Gastrointestinal Gastrointestinal: Reports abdominal pain, nausea and vomiting; Denies constipation, diarrhea or melena Genitourinary Genitourinary ED: Denies dysuria, hematuria or urinary frequency Musculoskeletal Musculoskeletal: Denies arthralgias, back pain, myalgias or neck pain Integumentary Denies abscess, Abrasions or rash Neurologic Neurologic: Reports paresthesias RLE and LLE and other Details: Patient states she has neuropathy. ; Denies headache(s) or weakness Psychiatric Psychiatric: Reports depression Endocrine Endocrinology: Denies polydipsia, polyphagia or polyuria EXAM Physical Exam Const Vital Signs: 07/07/21 19:39 07/07/21 20:06 07/07/21 21:38 Temperature 97.1 F L Temperature Source Temporal Pulse Rate 118 H 121 H Respiratory Rate 18 21 H Respiratory Effort Normal Non-Labored Blood Pressure 155/96 H 121/86 H Blood Pressure Mean 115 97 Pulse Ox 98 97 Oxygen Delivery Method Room Air Room Air 07/07/21 22:30 07/07/21 23:30 Temperature Temperature Source Pulse Rate 121 H 110 H Respiratory Rate 18 19 H Respiratory Effort Blood Pressure 138/94 H 150/98 H Blood Pressure Mean 108 115 Pulse Ox 97 97 Oxygen Delivery Method Room Air Room Air Positive well nourished and well developed; Negative for contractures General Appearance ED: well developed; Negative for contractures, cyanotic or diaphoretic HEENT Reports TM's clear and dry mucous membranes HEENT Narrative: Head is atraumatic normocephalic. Pupils equal round reactive paradoxic muscle intact. Nares patent. Tympanic Membrane ED: Yes TM's clear Mouth ED: Yes dry mucous membranes Mouth: dry mucous membranes Eyes PERRL and EOMs intact bilaterally General Eye ED: Negative for pale conjunctiva or scleral icterus Neck no lymphadenopathy, supple and no JVD Resp normal respiratory effort and clear to auscultation bilaterally Cardio no murmurs Rate: tachycardic Rhythm: abnormal rhythm GI normal to inspection, nondistended, normoactive bowel sounds and non-distended; Negative for non-tender Palpation: soft and tender Back/Spine no CVA tenderness Cervical Spine: Negative for cervical spine tenderness Thoracic Spine / Upper Back: Negative for thoracic spinal tenderness or paraspinal muscle tenderness Extremity normal to inspection General Extremety ED: Negative for edema or tenderness General Extremity: Negative for edema Neuro oriented x3, CN's II-XII intact bilaterally and no sensory deficits noted Sensorium / Orientation: alert Motor Exam: strength 5/5 throughout Psych Mood & Affect: depressed Skin no rashes or lesions noted and no wounds MDM MDM MDM Narrative Medical decision making narrative: Clinically patient appears dehydrated. Will obtain electrolytes assess renal function and electrolytes. She received 1 L normal saline. Cyclic vomiting order set was initiated. She reports allergy to Benadryl i.e. restless legs. This is not an allergy. Patient was reassessed at 2222. She is resting comfortably. Heart rate is 120. She is in atrial fibrillation. Will treat with metoprolol for rate control. There is no evidence of acute kidney injury or electrolyte abnormality. Initially did not treat with metoprolol since clinically she appeared dehydrated. Since she is still tachycardic after fluids we will treat with metoprolol. Patient transient drop in heart rate after first dose of metoprolol. Second dose of metoprolol was ordered. Patient's had no vomiting during her ER stay. Patient was reassessed at 2350. Heart rate is now in the 80s. Plan is to discharge to home. Lab Data Attestation: I reviewed the patient's lab results. Lab results narrative: Blood sugar is elevated. BUN and creatinine are normal and CO2 was normal with a normal anion gap. Labs: Laboratory Results - last 24 hr 07/07/21 07/07/21 20:10 20:10 WBC 10.8 RBC 4.87 Hgb 14.7 Hct 44.6 MCV 91.6 MCH 30.2 MCHC 33.0 RDW Std Deviation 41.9 RDW Coeff of Ray 12.6 Plt Count 256 MPV 8.9 Immature Gran % (Auto) 0.400 Neut % (Auto) 84.3 H Lymph % (Auto) 10.6 L Hale % (Auto) 4.2 Eos % (Auto) 0.2 Baso % (Auto) 0.3 Absolute Neuts (auto) 9.1 H Absolute Lymphs (auto) 1.15 Nucleated RBC % 0 Sodium 136 Potassium 4.1 Chloride 102 Carbon Dioxide 26.0 Anion Gap 8 BUN 14 Creatinine 0.94 Estim Creat Clear Calc 59.03 Est GFR (MDRD) Af Amer 76 Est GFR (MDRD) Non-Af 62 BUN/Creatinine Ratio 14.8 Glucose 230 H Calcium 9.4 EKG Initial EKG: Interpretation: Atrial Fibrillation (Ventricular rate 102. Cures duration 80 ms. QT duration 3 and 68 ms. Comfort is normal.) Discharge Plan Triage Chief Complaint: General Illness ED Provider: Cristobal Scott Dx/Rx/DC Orders Clinical Impression: Chronic atrial fibrillation with rapid ventricular response, Cyclic vomiting syndrome, Acute dehydration, Hyperglycemia due to type 1 diabetes mellitus Instructions: Dehydration, ED Cyclic Vomiting Syndrome, ED AFIB, ED Diabetic Hyperglycemia Prescriptions: No Action escitalopram oxalate [Lexapro] 20 mg tablet 20 mg PO DAILY RF: 0 insulin NPH and regular human 100 UNIT/ML suspension 22 unit SQ BID RF: 0 atorvastatin 80 MG tablet 80 mg PO DAILY RF: 0 ropinirole 4 MG tablet extended release 24 hr 5 mg PO BID RF: 0 furosemide 20 MG tablet 20 mg PO DAILY RF: 0 promethazine 25 MG tablet 25 mg PO Q6H PRN PRN (Reason: Nausea) Qty: 10 RF: 0 trazodone 50 MG tablet 50 mg PO QHS RF: 0 aspirin 325 MG tablet 1 tab PO DAILY RF: 0 pantoprazole 40 MG tablet 40 mg PO DAILY Qty: 60 RF: 0 metoprolol succinate 25 MG tablet 25 mg PO DAILY Qty: 60 RF: 0 acetaminophen 325 MG tablet 650 mg PO Q6H PRN PRN (Reason: Pain Score 1-10/Temp > 100.7 F) RF: 0 ondansetron HCl 8 MG tablet 8 mg PO Q8H PRN PRN (Reason: Nausea/Vomiting) Qty: 15 RF: 0 lorazepam 0.5 MG tablet 0.5 mg PO TID PRN (Reason: Cyclic vomiting syndrome) Qty: 10 RF: 0 sertraline 100 mg tablet 100 mg DAILY RF: 0 esomeprazole magnesium 40 mg capsule,delayed release(DR/EC) 40 mg DAILY RF: 0 Xarelto 20 mg tablet 20 mg DAILY RF: 0 losartan 25 MG tablet 100 mg PO DAILY RF: 0 Primary Care Provider: Tae Banegas Referrals: Tae Banegas DO [Primary Care Provider] - 3-5 Days Disposition Disposition: Home, Self Care
--- NOTE | 2021-07-07 19:51 | EKG12_ITS ---
Test Reason : DYSRHYTHMIA Blood Pressure : / mmHG Vent. Rate : 102 BPM Atrial Rate : 101 BPM P-R Int : 000 ms QRS Dur : 080 ms QT Int : 368 ms P-R-T Axes : 000 064 012 degrees QTc Int : 479 ms Atrial fibrillation Incomplete right bundle branch block Abnormal ECG Confirmed by MARSHAL HUMPHREY, JARROD ([id number]), editorial project manager MIRANDA MCLEAN ([id number]) on 07/09/2021 10:06:14 AM Referred By: LUCRECIA Confirmed By:JARROD ARAYA MD
[2021-07-07] MEDS: Famotidine 200 MG/20 ML MDV 20 MG in 0.9% Normal Saline (Pres. free 8 ML 300 MG IV (20:14)
[2021-07-07] MEDS: Ondansetron 4 MG/2 ML Vial IV (20:14)
[2021-07-07] MEDS: LORazepam 2 MG/ML Syringe 0.5 MG IV (20:14)
[2021-07-07 20:23] LABS: Absolute Lymphocyte Count 1.15 X10^3/uL (0.83-4.51); Absolute Neutrophil Count 9.1 X10^3/uL (2.0-7.7); Basophil# 0.03 X10^3/uL; Basophil% 0.3 % (0-1); Eosinophil# 0.02 X10^3/uL; Eosinophils% 0.2 % (0-5); Hematocrit 44.6 % (37-47); Hemoglobin 14.7 g/dL (12.0-15.0); Lymphocyte # 1.15 X10^3/ul (0.83-4.51); Lymphocyte % 10.6 % (19-41); Mean Corpuscular Hgb 30.2 pg (27.0-32.0); Mean Corpuscular Volume 91.6 fL (81-99); Mean Platelet Vol. 8.9 fl (6.2-12.0); Monocyte# 0.45 X10^3/uL; Monocyte% 4.2 % (0-10); NRBC Flagged by Analyzer 0 % (0-5); Neutrophil # 9.14 X10^3/uL (2.7-7.7); Neutrophil % 84.3 % (47-70); Platelet Count 256 K/mm3 (150-450); RBC Distribution Width CV 12.6 % (11.6-14.6); RBC Distribution Width SD 41.9 fl (35.1-43.9); Red Blood Count 4.87 M/mm3 (4.2-5.4); White Blood Count 10.8 K/mm3 (4.4-11.0)
[2021-07-07 20:36] LABS: Anion Gap 8 (5-15); BUN 14 mg/dL (7-18); BUN/Creat Ratio 14.8 RATIO (10-20); Calcium,Total 9.4 mg/dL (8.5-10.1); Chloride 102 mmol/L (98-107); Creatinine, Serum 0.94 mg/dL (0.55-1.02); EST Glomerular Filtration Rate 62 mL/min (>60); Est Glom Filt Rate - Afr Amer 76 mL/min (>60); Estimated Creatinine Clearance 59.03 ml/min; Glucose 230 mg/dL (74-106); Potassium 4.1 mmol/L (3.5-5.1); Sodium Level 136 mmol/L (136-145)
--- NOTE | 2021-07-07 20:44 | CM.ED ---
SOCIAL WORK Active ED Care Plan Physician and nurse made aware patient has ED Care Plan. Care Plan reviewed. SW to remain available for needs. Milind Barnhart, HUMAN RESOURCE INTERN, WAREHOUSE PULLER
[2021-07-07 21:38] VITALS: BP 121/86; PULSE 121; RESP 21; O2SAT 97
[2021-07-07] MEDS: 0.9% Normal Saline 1,000 ML 1000 ML IV (21:46)
[2021-07-07 22:30] VITALS: BP 138/94; PULSE 121; RESP 18; O2SAT 97
[2021-07-07] MEDS: Metoprolol Tartrate 5 MG/5 ML Vial IV ×2 (22:52→23:32)
[2021-07-07 23:30] VITALS: BP 150/98; PULSE 110; RESP 19; O2SAT 97
[2021-07-07 23:58] VITALS: BP 128/97; PULSE 82; RESP 17; O2SAT 97
== END 2021-07-08 00:04 | disposition home or self-care (01) ==
PROVIDERS: Emergency Provider Emergency Medicine; PCP Student in an Organized Health Care Education/Training Program
DX: I48.20 Chronic atrial fibrillation, unspecified (principal); E10.65 Type 1 diabetes mellitus with hyperglycemia; R11.15 Cyclical vomiting syndrome unrelated to migraine; E86.0 Dehydration; E10.42 Type 1 diabetes mellitus with diabetic polyneuropathy; F41.9 Anxiety disorder, unspecified; I12.9 Hypertensive chronic kidney disease with stage 1 through stage 4 chronic kidney disease, or unspecified chronic kidney disease; E10.22 Type 1 diabetes mellitus with diabetic chronic kidney disease; N18.30 Chronic kidney disease, stage 3 unspecified; I25.10 Atherosclerotic heart disease of native coronary artery without angina pectoris; J44.9 Chronic obstructive pulmonary disease, unspecified; E10.51 Type 1 diabetes mellitus with diabetic peripheral angiopathy without gangrene; K21.9 Gastro-esophageal reflux disease without esophagitis; E83.42 Hypomagnesemia; Z85.528 Personal history of other malignant neoplasm of kidney; Z95.1 Presence of aortocoronary bypass graft; Z79.4 Long term (current) use of insulin; Z79.01 Long term (current) use of anticoagulants; Z79.82 Long term (current) use of aspirin; Z79.899 Other long term (current) drug therapy; Z87.891 Personal history of nicotine dependence
CPT/HCPCS: 80048; 85025; 93005; 96361; 96374; 96375; 96376; 99283; J7030; A4216; J2405; J3490

== ENCOUNTER 2021-07-29 13:44 | Emergency (ER) | payer MEDICARE, SELFPAY ==
[2021-07-29 13:45] VITALS: BP 111/60; PULSE 63; RESP 18; TEMP 36.2; O2SAT 97; BMI 23.4
--- NOTE | 2021-07-29 14:20 | CM.ED ---
SOCIAL WORK Reason for Consult: Active ED Care Plan Reviewed ED Care Plan with Dr. Joel and nurse. SW to remain available for needs. Milind Barnhart, PLASTIC PRODUCTS SALES REPRESENTATIVE, HYDROLOGIC MODELER
--- NOTE | 2021-07-29 14:34 | EDS_ITS ---
HPI HPI - GI History of Present Illness Chief Complaint: Nausea/Vomiting Informant: patient Abdominal Pain/Flank Pain Onset: Days Context: Gradual Onset Timing: Intermittent Current Severity: Mild Maximum Severity: Mild Worsened by: Not Worsened By Nothing Relieved by: Not Relieved By Nothing Nausea/Vomiting/Emesis GI Symptom: Positive for Nausea and Vomiting Onset: Days Quality: Negative for Blood streaks, Coffee ground and Hematemesis Diarrhea/Melena/Hematochezia GI Symptom: Positive for Diarrhea; Negative for Melena and Hematochezia Onset: Days Stool Quality: Positive for Loose Severity: Mild Associated Symptoms Associated Symptoms: Negative for Dysuria, Frequency, Hematuria and Urgency Narrative Prior similar symptoms: Yes Recent Illness/Hospitalization: No PFSH PFSH Medical History (Updated 07/29/21 @ 15:[address] Josué Joel MD) Anxiety Atherosclerosis of coronary artery of [place] heart without angina pectoris Chronic kidney disease, stage 3 Chronic vomiting Essential (primary) hypertension Gastro-esophageal reflux disease without esophagitis Hypomagnesemia Mild chronic obstructive pulmonary disease NPDR (nonproliferative diabetic retinopathy) Peripheral neuropathy Peripheral vascular occlusive disease Persistent atrial fibrillation Renal cell carcinoma Type II diabetes mellitus Home Medications atorvastatin 80 mg PO DAILY 07/31/17 [History Last Taken 12/29/20] insulin NPH and regular human 22 unit SQ BID 07/31/17 [History Last Taken 12/31/20] ropinirole 5 mg PO BID 07/31/17 [History Last Taken 12/29/20] ondansetron HCl 8 mg PO Q8H PRN PRN #15 tab 01/06/21 [Rx Last Taken Unknown] esomeprazole magnesium 40 mg PO DAILY 07/07/21 [History Last Taken Unknown] losartan 100 mg PO DAILY 07/07/21 [History Last Taken Unknown] rivaroxaban [Xarelto] 20 mg PO DAILY 07/07/21 [History Last Taken Unknown] sertraline 100 mg PO DAILY 07/07/21 [History Last Taken Unknown] metoprolol succinate 100 mg PO DAILY 07/29/21 [History Last Taken Unknown] Allergy/AdvReac Type Severity Reaction Status Date / Time diphenhydramine HCl AdvReac restless Verified 07/29/21 13:47 [From Benadryl] legs dofetilide AdvReac LONG QT Verified 07/29/21 13:47 haloperidol [From Haldol] AdvReac Other Verified 07/29/21 13:47 metoclopramide [From Reglan] AdvReac restless Verified 07/29/21 13:47 legs Family History Mother Cancer Stomach Father Colon cancer Heart disease Sister Colon cancer Surgical History H/O coronary artery bypass surgery (01/29/03) H/O laminectomy History of angioplasty of peripheral vessel (07/2013) History of cardioversion (2014) History of cholecystectomy (08/2019) History of colonoscopy History of esophagogastroduodenoscopy (EGD) (01/2018) History of hysterectomy (1995) History of open reduction and internal fixation (ORIF) procedure History of partial nephrectomy History of radiofrequency ablation procedure for cardiac arrhythmia (03/19/16) Social History household members: none Smoking Status: Former smoker pack-years: 40 alcohol intake: current alcohol intake frequency: other substance use type: does not use ROS ROS ED ROS Narrative Nausea, vomiting and diarrhea. Review of Systems ROS Unobtainable: Denies due to encephalopathy Constitutional Constitutional ED: Denies chills or fever(s) ENT ENT ED: Denies ear pain or sore throat Cardiovascular Cardiovascular: Denies chest pain Respiratory/Chest Respiratory/Chest: Denies cough or dyspnea Gastrointestinal Gastrointestinal: Reports diarrhea, nausea and vomiting; Denies abdominal pain, constipation or melena Genitourinary Genitourinary ED: Denies dysuria or hematuria Musculoskeletal Musculoskeletal: Denies myalgias Integumentary Denies rash Neurologic Neurologic: Denies headache(s) Psychiatric Psychiatric: Denies depression Endocrine Endocrinology: Denies polyuria Hematologic/Lymphatic Hematologic/Lymphatic: Denies easy bruising Allergic/Immunologic Allergic/Immunologic ED: Denies urticaria EXAM Physical Exam Narrative Exam Narrative: Well-appearing older female vital signs stable afebrile. Does not look septic or toxic. Does not look significantly dehydrated. HEENT exam normal. Moist remembers. Neck nontender no lymphadenopathy. Lungs clear to auscultation bilaterally. Heart regular rate and rhythm rate 60s no murmur. Abdomen soft nontender nondistended normal bowel sounds no peritoneal signs. Moving all 4 extremities. No edema. Neurologically awake and alert with no focal motor deficits. Const Vital Signs: 07/29/21 13:45 Temperature 97.2 F L Temperature Source Temporal Pulse Rate 63 Respiratory Rate 18 Blood Pressure 111/60 Blood Pressure Mean 77 Pulse Ox 97 Oxygen Delivery Method Room Air Positive well nourished and well developed; Negative for obese, cachectic, contractures or unkempt General Appearance ED: well developed and NAD; Negative for unkempt, cachectic or contractures Nutritional Appearance: Negative for cachectic or obese HEENT Reports moist mucous membranes normocephalic and atraumatic; Negative for trauma or tenderness Eyes PERRL and EOMs intact bilaterally Neck no lymphadenopathy, supple and no JVD General: Negative for tenderness Resp normal respiratory effort and clear to auscultation bilaterally Auscultation: Negative for rales, rhonchi or wheezes Cardio regular rate, regular rhythm, S1 normal heart sound, S2 normal heart sound and no murmurs GI non-tender, non-distended and no masses Auscultation: normoactive bowel sounds; Negative for hyperactive bowel sounds Palpation: soft; Negative for tender, guarding, rigid or rebound tenderness present Back/Spine no CVA tenderness General Back: Negative for CVA tenderness Extremity full ROM General Extremety ED: Negative for edema or tenderness General Extremity: Negative for edema Neuro CN's II-XII intact bilaterally and moves all extremities Sensorium / Orientation: alert, oriented to person, oriented to place and oriented to time; Negative for orientation impaired Motor Exam: strength 5/5 throughout Psych mental status grossly normal Appearance: Negative for unkempt Skin Lesions: no lesions Rashes: no rashes MDM MDM MDM Narrative Medical decision making narrative: 71-year-old female history of cyclic vomiting. Benign exam. Will be treated with IV fluids, Zofran and Ativan and reassessed. Repeat exam at 3:53 PM patient is doing well. She has been able to hold down p.o. fluids. Feels comfortable being discharged home. Abdomen is benign. She looks much improved Lab Data Attestation: I reviewed the patient's lab results. Lab results narrative: Chemistries unremarkable gap is 7 creatinine 1.12. Glucose of 199. Labs: Laboratory Results - last 24 hr 07/29/21 14:50 Sodium 137 Potassium 4.0 Chloride 104 Carbon Dioxide 26.0 Anion Gap 7 BUN 17 Creatinine 1.12 H Estim Creat Clear Calc 49.54 Est GFR (MDRD) Af Amer 62 Est GFR (MDRD) Non-Af 51 L BUN/Creatinine Ratio 15.2 Glucose 199 H Calcium 8.9 Discharge Plan Triage Chief Complaint: Nausea/Vomiting ED Provider: Josué Joel Dx/Rx/DC Orders Clinical Impression: Cyclic vomiting syndrome Instructions: ED Cyclic Vomiting Syndrome Prescriptions: No Action insulin NPH and regular human 100 UNIT/ML suspension 22 unit SQ BID RF: 0 atorvastatin 80 MG tablet 80 mg PO DAILY RF: 0 ropinirole 4 MG tablet extended release 24 hr 5 mg PO BID RF: 0 ondansetron HCl 8 MG tablet 8 mg PO Q8H PRN PRN (Reason: Nausea/Vomiting) Qty: 15 RF: 0 sertraline 100 mg tablet 100 mg PO DAILY RF: 0 esomeprazole magnesium 40 mg capsule,delayed release(DR/EC) 40 mg PO DAILY RF: 0 Xarelto 20 mg tablet 20 mg PO DAILY RF: 0 losartan 25 MG tablet 100 mg PO DAILY RF: 0 metoprolol succinate 25 MG tablet extended release 24 hr 100 mg PO DAILY RF: 0 Primary Care Provider: Tae Banegas Referrals: Tae Banegas, DO [Primary Care Provider] - 3-5 Days if not improving Activity Restrictions/Additional Instructions: Fluids and rest. Increase diet slowly. Use your home nausea medication as needed. Follow-up if not improving. Disposition Disposition: Home, Self Care
[2021-07-29] MEDS: 0.9% Normal Saline 1,000 ML 1000 ML IV (14:52)
[2021-07-29] MEDS: Ondansetron 4 MG/2 ML Vial IV (14:52)
[2021-07-29] MEDS: LORazepam 2 MG/ML Syringe 1 MG IV (14:53)
[2021-07-29 15:24] LABS: Anion Gap 7 (5-15); BUN 17 mg/dL (7-18); BUN/Creat Ratio 15.2 RATIO (10-20); Calcium,Total 8.9 mg/dL (8.5-10.1); Chloride 104 mmol/L (98-107); Creatinine, Serum 1.12 mg/dL (0.55-1.02); EST Glomerular Filtration Rate 51 mL/min (>60); Est Glom Filt Rate - Afr Amer 62 mL/min (>60); Estimated Creatinine Clearance 49.54 ml/min; Glucose 199 mg/dL (74-106); Sodium Level 137 mmol/L (136-145)
[2021-07-29 16:05] VITALS: BP 110/78; PULSE 68; RESP 12; O2SAT 98
== END 2021-07-29 16:11 | disposition home or self-care (01) ==
PROVIDERS: Emergency Provider Emergency Medicine; PCP Student in an Organized Health Care Education/Training Program
DX: R11.15 Cyclical vomiting syndrome unrelated to migraine (principal); Z87.891 Personal history of nicotine dependence; Z79.01 Long term (current) use of anticoagulants; Z79.899 Other long term (current) drug therapy
CPT/HCPCS: 80048; 96374; 96375; 99284; J7030; J2405

== ENCOUNTER 2021-08-11 12:21 | Emergency (ER) | payer MEDICARE, SELFPAY ==
[2021-08-11 12:21] VITALS: BP 123/82; PULSE 92; RESP 20; TEMP 37.2; O2SAT 99; BMI 23.4
--- NOTE | 2021-08-11 14:02 | CM.ED ---
SOCIAL WORK Active ED Care Plan Patient presents with nausea, vomiting, and abdominal pain. Patient with active ED Care Plan. Physician and nurse updated. This worker to remain available for needs. Milind Barnhart, TANK MAKER WOOD, PELT SALTER
--- NOTE | 2021-08-11 14:16 | EDS_ITS ---
HPI History of Present Illness Chief Complaint: Nausea/Vomiting Informant: patient Narrative Narrative: 71-year-old female presents to the emergency department with nausea and vomiting abdominal pain. Patient has a history of cyclic vomiting syndrome and has a care plan at this facility. She states that there is not anything different about this episode as her previous ones. She states that the patient has not had any fever or diarrhea. She notes some burning with urination [facility] Medical History (Updated 08/11/21 @ 16:[address] Cayden Maria, ) Anxiety Atherosclerosis of coronary artery of [place] heart without angina pectoris Chronic kidney disease, stage 3 Chronic vomiting Essential (primary) hypertension Gastro-esophageal reflux disease without esophagitis Hypomagnesemia Mild chronic obstructive pulmonary disease NPDR (nonproliferative diabetic retinopathy) Peripheral neuropathy Peripheral vascular occlusive disease Persistent atrial fibrillation Renal cell carcinoma Type II diabetes mellitus Home Medications atorvastatin 80 mg PO DAILY 07/31/17 [History Last Taken 12/29/20] insulin NPH and regular human 22 unit SQ BID 07/31/17 [History Last Taken 12/31/20] ropinirole 5 mg PO BID 07/31/17 [History Last Taken 12/29/20] ondansetron HCl 8 mg PO Q8H PRN PRN #15 tab 01/06/21 [Rx Last Taken Unknown] esomeprazole magnesium 40 mg PO DAILY 07/07/21 [History Last Taken Unknown] losartan 100 mg PO DAILY 07/07/21 [History Last Taken Unknown] rivaroxaban [Xarelto] 20 mg PO DAILY 07/07/21 [History Last Taken Unknown] sertraline 100 mg PO DAILY 07/07/21 [History Last Taken Unknown] metoprolol succinate 100 mg PO DAILY 07/29/21 [History Last Taken Unknown] sulfamethoxazole-trimethoprim 1 tab PO BID #14 tablet 08/11/21 [Rx Last Taken Unknown] Allergy/AdvReac Type Severity Reaction Status Date / Time diphenhydramine HCl AdvReac restless Verified 07/29/21 13:47 [From Benadryl] legs dofetilide AdvReac LONG QT Verified 07/29/21 13:47 haloperidol [From Haldol] AdvReac Other Verified 07/29/21 13:47 metoclopramide [From Reglan] AdvReac restless Verified 07/29/21 13:47 legs Family History Mother Cancer Stomach Father Colon cancer Heart disease Sister Colon cancer Surgical History H/O coronary artery bypass surgery (01/29/03) H/O laminectomy History of angioplasty of peripheral vessel (07/2013) History of cardioversion (2014) History of cholecystectomy (08/2019) History of colonoscopy History of esophagogastroduodenoscopy (EGD) (01/2018) History of hysterectomy (1995) History of open reduction and internal fixation (ORIF) procedure History of partial nephrectomy History of radiofrequency ablation procedure for cardiac arrhythmia (03/19/16) Social History household members: none Smoking Status: Former smoker pack-years: 40 alcohol intake: current alcohol intake frequency: other substance use type: does not use ROS ROS ED Constitutional Constitutional ED: Denies chills or weight loss Eyes Eyes: Denies change in vision or diplopia ENT ENT ED: Denies ear pain, rhinorrhea or sore throat Cardiovascular Cardiovascular: Denies chest pain, orthopnea, palpitations or racing heartbeat Respiratory/Chest Respiratory/Chest: Denies cough, dyspnea or orthopnea Gastrointestinal Gastrointestinal: Reports abdominal pain, nausea and vomiting; Denies diarrhea Genitourinary Genitourinary ED: Reports dysuria; Denies hematuria or urinary frequency Musculoskeletal Musculoskeletal: Denies arthralgias or myalgias Integumentary Denies abscess or rash Neurologic Neurologic: Denies headache(s) or weakness Psychiatric Psychiatric: Denies anxiety, depression, suicidal ideation or suicidal thoughts Endocrine Endocrinology: Denies polydipsia, polyphagia or polyuria Allergic/Immunologic Allergic/Immunologic ED: Denies mouth swelling, tongue swelling or urticaria EXAM Physical Exam Const Vital Signs: 08/11/21 12:21 Temperature 99.0 F Temperature Source Temporal Pulse Rate 92 Respiratory Rate 20 H Blood Pressure 123/82 H Blood Pressure Mean 95 Pulse Ox 99 Oxygen Delivery Method Room Air Positive well nourished and well developed General Appearance ED: well developed HEENT Reports normocephalic, head/scalp atraumatic and moist mucous membranes Eyes PERRL and EOMs intact bilaterally Neck no lymphadenopathy, supple and no JVD Resp normal respiratory effort and clear to auscultation bilaterally Cardio regular rate, regular rhythm and no murmurs GI normal to inspection, nondistended, normoactive bowel sounds and non-tender Palpation: soft Back/Spine no CVA tenderness and normal ROM Extremity normal to inspection General Extremety ED: Negative for edema General Extremity: Negative for edema Neuro oriented x3 and CN's II-XII intact bilaterally Sensorium / Orientation: alert Motor Exam: strength 5/5 throughout Psych mental status grossly normal Mood & Affect: Negative for depressed or tearful Skin no rashes or lesions noted and no wounds MDM MDM MDM Narrative Medical decision making narrative: Patient received IV fluids Zofran and Ativan. Basic blood work showed a BUN of 20 with creatinine 1.09. Glucose of 168. No other electrolyte derangements. Patient was given a popsicle and has been tolerating this. Urinalysis shows white blood cells and bacteria. Negative nitrates positive leukocyte esterase. This will be sent for culture as the patient is experiencing some dysuria I will place her on Bactrim. Lab Data Attestation: I reviewed the patient's lab results. Labs: Laboratory Results - last 24 hr 08/11/21 08/11/21 14:51 16:22 Sodium 138 Potassium 3.5 Chloride 104 Carbon Dioxide 28.0 Anion Gap 6 BUN 20 H Creatinine 1.09 H Estim Creat Clear Calc 50.91 Est GFR (MDRD) Af Amer 64 Est GFR (MDRD) Non-Af 53 L BUN/Creatinine Ratio 18.3 Glucose 168 H Calcium 8.9 Urine Color Yellow Urine Clarity Cloudy Urine pH 8.0 Ur Specific [place] 1.015 Urine Protein 15 H Urine Glucose (UA) Normal Urine Ketones Negative Urine Occult Blood 25 H Urine Nitrite Negative Urine Bilirubin Negative Urine Urobilinogen Normal Ur Leukocyte Esterase 500 H Urine RBC 0-5 SEEN Urine WBC 25-50 SEEN Ur Squamous Epith Cells 0-5 SEEN Urine Bacteria 3+ Urine Mucus 0 SEEN Discharge Plan Triage Chief Complaint: Nausea/Vomiting ED Provider: Cayden Maria Dx/Rx/DC Orders Clinical Impression: Cyclic vomiting syndrome, Acute cystitis Instructions: ED Cyclic Vomiting Syndrome, ED CYSTITIS Female Adult Prescriptions: New sulfamethoxazole-trimethoprim [sulfamethoxazole-trimethoprim] 1 TABLET tablet 1 tab PO BID Qty: 14 RF: 0 No Action insulin NPH and regular human 100 UNIT/ML suspension 22 unit SQ BID RF: 0 atorvastatin 80 MG tablet 80 mg PO DAILY RF: 0 ropinirole 4 MG tablet extended release 24 hr 5 mg PO BID RF: 0 ondansetron HCl 8 MG tablet 8 mg PO Q8H PRN PRN (Reason: Nausea/Vomiting) Qty: 15 RF: 0 sertraline 100 mg tablet 100 mg PO DAILY RF: 0 esomeprazole magnesium 40 mg capsule,delayed release(DR/EC) 40 mg PO DAILY RF: 0 Xarelto 20 mg tablet 20 mg PO DAILY RF: 0 losartan 25 MG tablet 100 mg PO DAILY RF: 0 metoprolol succinate 25 MG tablet extended release 24 hr 100 mg PO DAILY RF: 0 Primary Care Provider: Tae Banegas Referrals: Tae Banegas DO [Primary Care Provider] - As Needed Disposition Disposition: Home, Self Care
[2021-08-11] MEDS: 0.9% Normal Saline 1,000 ML 1000 ML IV (14:34)
[2021-08-11] MEDS: LORazepam 2 MG/ML Syringe 1 MG IV (14:34)
[2021-08-11] MEDS: Ondansetron 4 MG/2 ML Vial IV (14:35)
[2021-08-11 15:27] LABS: Anion Gap 6 (5-15); BUN 20 mg/dL (7-18); BUN/Creat Ratio 18.3 RATIO (10-20); Calcium,Total 8.9 mg/dL (8.5-10.1); Chloride 104 mmol/L (98-107); Creatinine, Serum 1.09 mg/dL (0.55-1.02); EST Glomerular Filtration Rate 53 mL/min (>60); Est Glom Filt Rate - Afr Amer 64 mL/min (>60); Estimated Creatinine Clearance 50.91 ml/min; Glucose 168 mg/dL (74-106); Potassium 3.5 mmol/L (3.5-5.1); Sodium Level 138 mmol/L (136-145)
[2021-08-11 16:28] LABS: Mucous, Urine 0 SEEN /hpf (<or=2+)
[2021-08-11 16:32] LABS: Color, Urine Yellow (Yellow); Glucose, Dipstick Normal (Normal); Ketone-Dipstick Negative (Negative); Leukocyte Esterase-Dipstick 500 /ul (Negative); Nitrite-Dipstick Negative (Negative); Occult Blood-Urine 25 /ul (Negative); Protein-Dipstick 15 mg/dl (Negative); Specific Gravity, Urine 1.015 (1.002-1.030); Urine Bilirubin Dipstick Negative (Negative); Urine Clarity Cloudy (Clear); Urine Urobilinogen Normal (Normal)
[2021-08-11 16:42] LABS: Bacteria 3+ /hpf (None Seen); Red Blood Cells-Urine 0-5 SEEN /hpf (0-5); Squamous Epithelial Cells - UA 0-5 SEEN /hpf (5-10); White Blood Cells 25-50 SEEN /hpf (0-5)
[2021-08-11 16:51] VITALS: BP 112/76; PULSE 68; RESP 18; O2SAT 97
== END 2021-08-11 16:52 | disposition home or self-care (01) ==
PROVIDERS: Emergency Provider Emergency Medicine; PCP Student in an Organized Health Care Education/Training Program
DX: R11.15 Cyclical vomiting syndrome unrelated to migraine (principal); N30.00 Acute cystitis without hematuria; I12.9 Hypertensive chronic kidney disease with stage 1 through stage 4 chronic kidney disease, or unspecified chronic kidney disease; E11.22 Type 2 diabetes mellitus with diabetic chronic kidney disease; N18.30 Chronic kidney disease, stage 3 unspecified; E11.40 Type 2 diabetes mellitus with diabetic neuropathy, unspecified; I48.19 Other persistent atrial fibrillation; I25.10 Atherosclerotic heart disease of native coronary artery without angina pectoris; J44.9 Chronic obstructive pulmonary disease, unspecified; K21.9 Gastro-esophageal reflux disease without esophagitis; F41.9 Anxiety disorder, unspecified; Z79.4 Long term (current) use of insulin; Z79.01 Long term (current) use of anticoagulants; Z79.899 Other long term (current) drug therapy; Z87.891 Personal history of nicotine dependence; Z90.5 Acquired absence of kidney; Z95.1 Presence of aortocoronary bypass graft
CPT/HCPCS: 80048; 81001; 87086; 87088; 87186; 96361; 96374; 96375; 99284; J7030; A4216; J2405

== ENCOUNTER 2022-05-26 00:20 | Emergency (ER) | payer BC, SELFPAY ==
[2022-05-26 00:21] VITALS: BP 126/66; PULSE 96; RESP 18; TEMP 36.4; O2SAT 97; BMI 30.2
--- NOTE | 2022-05-26 00:29 | ED.VIS.LOWEX ---
HPI History of Present Illness Chief Complaint: Lower Extremity Injury Informant: patient Narrative Narrative: Patient tripped earlier this evening over a rut in the driveway while she was taking out the garbage. She just got her foot and tripped. She states she has neuropathy so she always has some numbness. This is caused falls not infrequently. She has never had syncope though. She did not hit her head. She is on Xarelto. She states she has soreness mostly in the left groin. She is able to walk but it is more painful when she lifts her leg up. Denies any other injury. [facility] Medical History Acute dehydration Anxiety Atherosclerosis of coronary artery of [place] heart without angina pectoris Chronic atrial fibrillation with rapid ventricular response Chronic kidney disease, stage 3 Chronic vomiting Cyclic vomiting syndrome Essential (primary) hypertension Gastro-esophageal reflux disease without esophagitis Hyperglycemia due to type 1 diabetes mellitus Hypomagnesemia Mild chronic obstructive pulmonary disease NPDR (nonproliferative diabetic retinopathy) Peripheral neuropathy Peripheral vascular occlusive disease Renal cell carcinoma Type II diabetes mellitus Home Medications atorvastatin 80 mg tablet 80 mg PO DAILY cholesterol 07/31/17 [History Last Taken 12/29/20] insulin human U-100 NPH-regulr 70-30 mix 100 unit/mL subcutaneous susp 22 unit SQ BID diabetes 07/31/17 [History Last Taken 12/31/20] ropinirole 4 mg tablet,extended release 24 hr 5 mg PO BID restless legs 07/31/17 [History Last Taken 12/29/20] ondansetron HCl 8 mg tablet 8 mg PO Q8H PRN PRN Nausea/Vomiting #15 tabs 01/06/21 [Rx Last Taken Unknown] esomeprazole magnesium 40 mg capsule,delayed release 40 mg PO DAILY 07/07/21 [History Last Taken Unknown] losartan 25 mg tablet 100 mg PO DAILY 07/07/21 [History Last Taken Unknown] rivaroxaban 20 mg tablet (Xarelto) 20 mg PO DAILY 07/07/21 [History Last Taken Unknown] sertraline 100 mg tablet 100 mg PO DAILY 07/07/21 [History Last Taken Unknown] metoprolol succinate 25 mg tablet,extended release 24 hr 100 mg PO DAILY 07/29/21 [History Last Taken Unknown] sulfamethoxazole 800 mg-trimethoprim 160 mg tablet 1 tab PO BID #14 TABLETS 08/11/21 [Rx Last Taken Unknown] hydrocodone-acetaminophen 5-325mg 5mg-325mg 1 tab PO Q6H PRN pain 3 days #12 tabs 05/26/22 [Rx Last Taken Unknown] Allergy/AdvReac Type Severity Reaction Status Date / Time diphenhydramine HCl AdvReac restless Verified 05/26/22 00:23 [From Benadryl] legs dofetilide AdvReac LONG QT Verified 05/26/22 00:23 haloperidol [From Haldol] AdvReac Other Verified 05/26/22 00:23 metoclopramide [From Reglan] AdvReac restless Verified 05/26/22 00:23 legs Family History Mother Cancer Stomach Father Colon cancer Heart disease Sister Colon cancer Surgical History H/O coronary artery bypass surgery (01/29/03) H/O laminectomy History of angioplasty of peripheral vessel (07/2013) History of cardioversion (2014) History of cholecystectomy (08/2019) History of colonoscopy History of esophagogastroduodenoscopy (EGD) (01/2018) History of hysterectomy (1995) History of open reduction and internal fixation (ORIF) procedure History of partial nephrectomy History of radiofrequency ablation procedure for cardiac arrhythmia (03/19/16) Social History household members: none Smoking Status: Former smoker pack-years: 40 alcohol intake: current alcohol intake frequency: other substance use type: does not use ROS ROS ED Constitutional Constitutional ED: Denies fever(s) or sweats Eyes Eyes: Denies change in vision ENT ENT ED: Denies rhinorrhea or sore throat Cardiovascular Cardiovascular: Reports other Details: History of atrial fibrillation but no symptoms. ; Denies chest pain, palpitations or racing heartbeat Respiratory/Chest Respiratory/Chest: Denies cough or dyspnea Gastrointestinal Gastrointestinal: Denies nausea or vomiting Genitourinary Genitourinary ED: Denies hematuria Musculoskeletal Musculoskeletal: Reports other Details: See history of present illness ; Denies back pain or neck pain Integumentary Denies Abrasions or rash Neurologic Neurologic: Denies headache(s), paresthesias or weakness Endocrine Endocrinology: Denies polydipsia or polyuria Hematologic/Lymphatic Hematologic/Lymphatic: Reports easy bruising Allergic/Immunologic Allergic/Immunologic ED: Denies urticaria EXAM Physical Exam Const Vital Signs: 05/26/22 00:21 Temperature 97.5 F L Temperature Source Temporal Pulse Rate 96 Respiratory Rate 18 Blood Pressure 126/66 H Blood Pressure Mean 86 Pulse Ox 97 Oxygen Delivery Method Room Air Positive well nourished and well developed General Appearance ED: well developed HEENT Reports moist mucous membranes normocephalic and atraumatic Neck full ROM Thyroid: Negative for tender Resp normal respiratory effort Auscultation: Negative for rales, rhonchi or wheezes Cardio regular rate GI non-tender and non-distended Back/Spine no CVA tenderness Extremity normal to inspection Extremity Narrative: There is some very subtle abrasions to the left lower [place] area. No lacerations or hematoma. No tenderness at the foot and ankle leg knee or thigh. There is some inguinal area soreness but not as much tenderness. I can rotate her hip without much pain. But when she tries to move her leg it hurts a lot. No lateral tenderness. No pelvic pain with lateral compression. No bruising at this point seen. Neuro oriented x3 Sensorium / Orientation: alert Psych mental status grossly normal Skin Trauma: abrasion MDM MDM MDM Narrative Medical decision making narrative: Three-view x-ray left hip and pelvis shows no sign of acute fracture. There are DJD changes. Patient is able to lift her leg up off the bed. She is able to bear weight. It is painful. She states she has a walker at home she can use. I encouraged her to use this for support. I will give her some Vicodin for pain. She has used this before without side effects. If she develops new areas of pain or weakness she should return. She already has follow-up with her primary physician soon. 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 Electronically Signed: Jami Chavis MD at 1:16 EDT Reading Location ID and State: [facility] / [place] Tel , Service support , Discharge Plan Triage Chief Complaint: Lower Extremity Injury ED Provider: Erik Herrera Dx/Rx/DC Orders Clinical Impression: Fall from slip, trip, or stumble, Muscle strain of left hip Instructions: ED Hip Strain Prescriptions: New hydrocodone-acetaminophen 5-325 mg tablet 1 tab PO Q6H PRN (Reason: pain) 3 Days Qty: 12 0RF No Action insulin NPH and regular human 100 UNIT/ML suspension 22 unit SQ BID atorvastatin 80 MG tablet 80 mg PO DAILY ropinirole 4 MG tablet extended release 24 hr 5 mg PO BID ondansetron HCl 8 MG tablet 8 mg PO Q8H PRN PRN (Reason: Nausea/Vomiting) Qty: 15 0RF sertraline 100 mg tablet 100 mg PO DAILY esomeprazole magnesium 40 mg capsule,delayed release(DR/EC) 40 mg PO DAILY Label Comments: TAKE 1 CAPSULE BY MOUTH EVERY DAY 30 MINUTES BEFORE MEAL Xarelto 20 mg tablet 20 mg PO DAILY losartan 25 MG tablet 100 mg PO DAILY metoprolol succinate 25 MG tablet extended release 24 hr 100 mg PO DAILY sulfamethoxazole-trimethoprim [sulfamethoxazole-trimethoprim] 1 TABLET tablet 1 tab PO BID Qty: 14 0RF Primary Care Provider: Tae Banegas Referrals: Tae Banegas DO [Primary Care Provider] - 3-5 Days Disposition Disposition: Home, Self Care
--- NOTE | 2022-05-26 00:40 | RAD_ITS ---
STUDY: X-RAY - PELVIS AND LEFT HIP REASON FOR EXAM: Female, 71 years old. trauma TECHNIQUE: History views of the pelvis and hip. COMPARISON: None. FINDINGS: There is a non-specific bowel gas pattern. Normal visualized soft tissue structures. There is narrowing with cortical sclerosis and osteophyte formation of the sacroiliac joint consistent with degenerative osteoarthritic changes. Normal bilateral superior and inferior pubic rami. There are degenerative changes of the pubic symphysis with articular narrowing and sclerosis. Normal bilateral ischial tuberosities. There are osteoarthritic changes of the femoral head with marginal osteophyte formation. Normal acetabulum. There is moderate articular joint space narrowing of the hip. 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 Electronically Signed: Jami Chavis MD at 1:16 EDT ,
[2022-05-26] MEDS: HYDROcodone Bitartrate/Apap 5/325 Tablet PO (02:02)
[2022-05-26 02:06] VITALS: BP 107/59; PULSE 86; RESP 16; O2SAT 98
== END 2022-05-26 02:06 | disposition home or self-care (01) ==
PROVIDERS: Emergency Provider Emergency Medicine; PCP Student in an Organized Health Care Education/Training Program; Visit Provider Emergency Medicine
DX: S76.011A Strain of muscle, fascia and tendon of right hip, initial encounter (principal); S80.812A Abrasion, left lower leg, initial encounter; W18.09XA Striking against other object with subsequent fall, initial encounter; Y93.E9 Activity, other interior property and clothing maintenance; J44.9 Chronic obstructive pulmonary disease, unspecified; E10.22 Type 1 diabetes mellitus with diabetic chronic kidney disease; E10.42 Type 1 diabetes mellitus with diabetic polyneuropathy; I48.20 Chronic atrial fibrillation, unspecified; Z79.4 Long term (current) use of insulin; N18.30 Chronic kidney disease, stage 3 unspecified; M16.12 Unilateral primary osteoarthritis, left hip; I12.9 Hypertensive chronic kidney disease with stage 1 through stage 4 chronic kidney disease, or unspecified chronic kidney disease; I25.10 Atherosclerotic heart disease of native coronary artery without angina pectoris; K21.9 Gastro-esophageal reflux disease without esophagitis; Z79.01 Long term (current) use of anticoagulants; Z87.891 Personal history of nicotine dependence; Z79.899 Other long term (current) drug therapy
CPT/HCPCS: 73502; 99283

== ENCOUNTER 2023-11-02 06:16 | Outpatient (CLI) | payer MEDICARE, SELFPAY ==
--- NOTE | 2023-11-02 06:20 | ART_ITS ---
Reason For Study: Claudication Procedure A bilateral lower extremity continuous wave Doppler with analog waveform analysis,segmental pressures,and ankle brachial indexes without exercise. Left Segmental Pressures Left brachial= 184mmHg. Left thigh = 191mmHg. Left calf = 178mmHg. Left posterior tibial artery = 178mmHg. Left dorsalis pedis artery = 187mmHg. Left digit = 161 mmHg. The left dorsalis pedis waveforms are biphasic. The left posterior tibial artery waveforms are biphasic. Right Segmental Pressures Right brachial= 189mmHg. Right thigh = 165mmHg. Right calf = 155mmHg. Right posterior tibial artery = 138mmHg. Right dorsalis pedis artery = 140mmHg. Right digit = 121 mmHg. The right dorsalis pedis waveforms are biphasic. The right posterior tibial artery waveforms are biphasic. Indices The right ankle brachial index by the dorsalis pedis is 0.74. The right ankle brachial index by the posterior tibial artery is 0.73. The right digital-brachial index is 0.64. The left ankle brachial index by the dorsalis pedis is 0.99. The left ankle brachial index by the posterior tibial artery is 0.94. The left digital-brachial index is 0.85. VL/Lower Ext Art Exam w/o Exercis Interpretation Summary Right JORDAN 0.74, moderate arterial insufficiency. Doppler/PVR waveforms and segm ental pressures reveal [id number] femoral disease. Left JORDAN 0.99, mild arterial insufficiency. Doppler/PVR waveforms and segmental pressures reveal no focal disease Ordering Physician: Mark Doan Referring Physician: Tae Banegas Performed By: Salome Lindsay RVT
--- NOTE | 2023-11-03 09:07 | STRESSREP ---
Stress Test Report Pharmacologic myocardial perfusion stress test. 73-year-old lady with a history of atrial fibrillation and claudication Resting EKG demonstrates atrial fibrillation with a rate of 93 bpm. Resting blood pressure is 132/68 mmHg. 0.4 mg of regadenoson was infused per usual protocol followed by rapid intravenous saline flush injection. Continuous EKG monitoring was performed. The maximum heart rate was 97 bpm which was 65% of max impacted heart rate the maximum workload was 1 metabolic equivalent. At rest there were no ST or T wave changes noted to suggest ischemia and at peak infusion nonspecific ST changes were noted which did not meet the criteria for ischemia. No clinical angina is noted. The final blood pressure was 130/70 mmHg. Myocardial perfusion protocol. 12.0 mCi of technetium 99m sestamibi was injected at rest. 0.4 mg of regadenoson was infused per usual protocol. At peak infusion 35.4 mCi of technetium 99m sestamibi was injected stress images were obtained stress and rest images were reconstructed and compared in the short axis vertical long and horizontal long axis. Gated images were also obtained. Perfusion SPECT analysis: Review of the stress images demonstrate normal uptake of tracer noted in all areas of the myocardium except for the mid anterior wall with reduced perfusion. The resting images similar demonstrated normal uptake of tracer noted in all areas of the myocardium. The above is suggestive of mild mid anterior ischemia present. Gated SPECT analysis: The gated ejection fraction is 60%. Conclusion: Abnormal pharmacologic myocardial perfusion stress test with mild mid anterior ischemia. Preserved ejection fraction.
== END 2023-11-02 23:59 | disposition home or self-care (01) ==
LOC: CVS 06:17
PROVIDERS: PCP Student in an Organized Health Care Education/Training Program; Referring Provider Nurse Practitioner Family; Visit Provider Nurse Practitioner Family
DX: I10 Essential (primary) hypertension (principal); C64.9 Malignant neoplasm of unspecified kidney, except renal pelvis; I73.9 Peripheral vascular disease, unspecified; I48.91 Unspecified atrial fibrillation; Z95.1 Presence of aortocoronary bypass graft; I25.10 Atherosclerotic heart disease of native coronary artery without angina pectoris
CPT/HCPCS: 78452; 93017; 93923; A9500; A4216; J2785

== ENCOUNTER → 2023-11-17 | Outpatient (CLI) | payer MEDICARE, SELFPAY ==
--- NOTE | 2023-11-17 13:39 | RDU_ITS ---
Reason For Study: CKD Right Renal Artery Left Renal Artery Right renal artery ostium 76/21.2 Left renal artery ostium 119.5/35.9 RSV/EDV. PSV/EDV. Right renal artery proximal Left renal artery proximal PSV/EDV 66.8/17.5 PSV/EDV. 100.8/28.3 . Right renal artery mid 74.1/17.5 Left renal artery mid 88.8/26 PSV/EDV. PSV/EDV . Right renal artery distal 92.4/21.2 Left renal artery distal 89.9/20.5 PSV/EDV. PSV/EDV. Right RAR 1.86. Left RAR 2.40. Right Renal Parenchyma Left Renal Parenchyma Upper Pole Medula 16.3/5.5 PSV/EDV. Left upper pole medulla 39.4/12.1 Right upper pole medulla EDR 0.3 . PSV/EDV . Right upper pole medulla R.I. Left upper pole medulla EDR 0.3 . 0.66 . Left upper pole medulla R.I. 0.69 . Upper [place] Cortx 12.6/4.1 PSV/EDV. UP Cortex 17.7/6.2 PSV/EDV. Right upper pole cortex EDR 0.3 . Left upper pole cortex EDR 0.3 . Right upper pole cortex R.I. 0.68 . Left upper pole cortex R.I. 0.65 . Right Renal Hilar Left lower Pole medulla 33.1/8.9 Right Hilar avg 53.5/12.4 PSV/EDV. PSV/EDV . Right hilar acceleration time 40 Left lower pole medulla EDR 0.3 . m/sec. Left lower pole medulla R.I. 0.73 . Right Renal Dimensions Lower Pole Cortx 14.4/5.1 PSV/EDV. History of partial nephrectomy. Left lower pole cortex EDR 0.65 . Right kidney size 6.63 cm . Left Renal Hilar Right cortical dimension 1.77 cm . LT Hilar avg 60.3/16.4 PSV/EDV . Left hilar acceleration time 50 m/sec. Left Renal Dimensions Left kidney size 9.73 cm . Left cortical dimension 1.50 cm . Aorta Proximal abdominal aorta 1.45 x 1.44 cm . Proximal abdominal aorta peak systolic velocity is 49.7 cm/sec . Distal abdominal aorta 1.17 x 1.16 cm . Distal abdominal aorta peak systolic velocity is 29.9 cm/sec . Patient Safety Technically difficult, every thing visualized from the side. VL/Renal Artery Duplex Ultrasound Interpretation Summary Right renal artery patent with normal velocities and no evidence of stenosis Left renal artery patent with normal velocities and no evidence of stenosis Right renal vein patent Left renal vein patent Right kidney small in size Left kidney normal in size Ordering Physician: Jennifer Rodríguez Referring Physician: Tae Banegas Performed By: Salome Lindsay RVT
== END | disposition home or self-care (01) ==
LOC: CVS 13:37
PROVIDERS: PCP Student in an Organized Health Care Education/Training Program; Referring Provider Internal Medicine Nephrology; Visit Provider Internal Medicine Nephrology
DX: N18.32 Chronic kidney disease, stage 3b (principal)
CPT/HCPCS: 93975

== ENCOUNTER 2023-12-06 05:53 | Day surgery (SDC) | payer MEDICARE, SELFPAY ==
--- NOTE | 2023-11-09 10:15 | RAD_ITS ---
STUDY: X-RAY CHEST REASON FOR EXAM: Female, 73 years old. pre-operative: [facility] TECHNIQUE: Frontal and lateral views of the chest. COMPARISON: 10/30/2015. FINDINGS: The lungs are hyperexpanded. There are coarsened interstitial markings suggestive of mild chronic fibrosis. No gross focal infiltrates. No gross effusions. Sternal cerclage wires and vascular clips are present from a prior sternotomy and coronary artery bypass graft procedure (CABG). Normal mediastinum and j carlos. Normal visualized pulmonary arteries. There is atherosclerotic calcification of the aortic arch with tortuosity. Normal visualized thoracic spine. Normal visualized ribs, clavicles, and shoulders. There is no demonstrated abnormality of the visualized soft tissue structures of the upper abdomen. RAD/Chest PA and Lateral IMPRESSION: There are findings consistent with COPD. There is no evidence of acute chest disease. Electronically Signed: Pito Zarate MD at 17:58 EST ,
[2023-11-09 10:29] LABS: Absolute Lymphocyte Count 1.92 X10^3/uL (0.83-4.51); Absolute Neutrophil Count 5.8 X10^3/uL (2.0-7.7); Basophil# 0.06 X10^3/uL; Basophil% 0.7 % (0-1); Eosinophil# 0.08 X10^3/uL; Eosinophils% 0.9 % (0-5); Hematocrit 41.5 % (37-47); Hemoglobin 13.2 g/dL (12.0-15.0); Lymphocyte # 1.92 X10^3/ul (0.83-4.51); Lymphocyte % 22.7 % (19-41); Mean Corp Hgb Conc 31.8 g/dL (32-36); Mean Corpuscular Hgb 28.4 pg (27.0-32.0); Mean Corpuscular Volume 89.4 fL (81-99); Mean Platelet Vol. 9.2 fl (6.2-12.0); Monocyte# 0.54 X10^3/uL; Monocyte% 6.4 % (0-10); NRBC Flagged by Analyzer 0 % (0-5); Neutrophil % 68.8 % (47-70); Platelet Count 233 K/mm3 (150-450); RBC Distribution Width CV 13.8 % (11.6-14.6); RBC Distribution Width SD 44.6 fl (35.1-43.9); Red Blood Count 4.64 M/mm3 (4.2-5.4); White Blood Count 8.4 K/mm3 (4.4-11.0)
[2023-11-09 11:09] LABS: Anion Gap 4 (5-15); BUN 17 mg/dL (7-18); BUN/Creat Ratio 11.4 RATIO (10-20); Calcium,Total 9.1 mg/dL (8.5-10.1); Chloride 104 mmol/L (98-107); Creatinine, Serum 1.49 mg/dL (0.55-1.02); EST Glomerular Filtration Rate 37 mL/min (>60); Est Glom Filt Rate - Afr Amer 44 mL/min (>60); Glucose 173 mg/dL (74-106); Potassium 3.6 mmol/L (3.5-5.1); Sodium Level 137 mmol/L (136-145)
--- NOTE | 2023-12-01 16:06 | PCM.HP.BLA ---
History and Physical Pleasant 73-year-old lady with an extensive cardiac history. She has a history of hypertension, diabetes mellitus, renal cell carcinoma with a right partial nephrectomy, peripheral vascular disease, and paroxysmal atrial fibrillation. She also has a history of coronary artery disease status post coronary bypass surgery in 2002. She had a left internal mammary artery to the left anterior descending artery and a saphenous vein graft to the right posterior descending artery. You do remember that she also had a history of atrial fibrillation she failed DC cardioversion, failed drug therapy, and eventually underwent a radiofrequency ablation. As part of her follow-up she had a stress test in March 2018 which demonstrated no evidence of ischemia. Her echocardiogram demonstrated an ejection fraction of 60%, stage II diastolic dysfunction, and a moderately dilated left atrium. On account of age of bypass and 5 years from previous stress test, she underwent a stress test on 11/03/2023 that was abnormal for mild mid anterior ischemia. She will proceed with heart cath station to assess further. She denies chest, arm, jaw, or neck discomfort. She denies palpitations. She denies bilateral lower extremity edema. She continues with claudication that she feels is worsening. This is noted bilaterally. She denies shortness of breath with activity, shortness of breath at rest, orthopnea, or PND. She denies chronic cough. She denies significant, sudden weight gain. She denies lightheadedness, dizziness, near-syncope, or syncope. She denies blood in urine, blood in stool, or epistaxis. He denies fever with chills. She denies myalgia. She states fatigue. Her exercise level has remained stable. Intake Vital Signs: See EMR Intake Visit Reasons: [facility] Rag Baler Required: No Accompanied by: Self Is patient in pain?: No Allergies diphenhydramine HCl [From Benadryl] Adverse Reaction (Verified 09/28/23 14:25) restless legs dofetilide Adverse Reaction (Verified 09/28/23 14:25) LONG QT haloperidol [From Haldol] Adverse Reaction (Verified 09/28/23 14:25) Other metoclopramide [From Reglan] Adverse Reaction (Verified 09/28/23 14:25) restless legs Medications See EMR [facility] Medical History Acute dehydration Anxiety Atherosclerosis of coronary artery of [place] heart without angina pectoris Chronic atrial fibrillation with rapid ventricular response Chronic kidney disease, stage 3 Chronic vomiting Cyclic vomiting syndrome Essential (primary) hypertension Fracture of right femur Gastro-esophageal reflux disease without esophagitis Hyperglycemia due to type 1 diabetes mellitus Hypomagnesemia Mild chronic obstructive pulmonary disease NPDR (nonproliferative diabetic retinopathy) Peripheral neuropathy Peripheral vascular occlusive disease Renal cell carcinoma Type II diabetes mellitus Surgical History H/O coronary artery bypass surgery (01/29/03) H/O laminectomy History of angioplasty of peripheral vessel (07/2013) History of cardioversion (2014) History of cholecystectomy (08/2019) History of colonoscopy History of esophagogastroduodenoscopy (EGD) (01/2018) History of hysterectomy (1995) History of open reduction and internal fixation (ORIF) procedure History of partial nephrectomy History of radiofrequency ablation procedure for cardiac arrhythmia (03/19/16) Family History Mother Cancer StomachFather Colon cancer Heart diseaseSister Colon cancer Social History household members: none Smoking Status: Former smoker pack-years: 40 alcohol intake: current alcohol intake frequency: other substance use type: does not use ROS Const Const: Positive for fatigue; Negative for weakness, headache(s), daytime sleepiness or difficulty sleeping Eyes Eyes: Negative for change in vision ENT ENT: Negative for headache(s), dizziness or Nosebleed/epistaxis Cardio Chest Pain: No Palpitations: No Edema: None Muscle aches with walking: Bilateral Resp Respiratory: Negative for SOB with activity, SOB at rest, SOB orthopnea\SOB lying down or Cough GI GI: Positive for nausea and vomiting; Negative heartburn : Negative for hematuria or frequent nighttime urination/ nocturia Musc Musc: Negative for muscle aches/ myalgia Skin Skin: Negative non-healing lesions or rash Neuro Neuro: Negative for dizziness, lightheadedness, near syncope, headache(s) or weakness Endo Endo: Positive for fatigue Allergy Allergy/Immunology: Negative for rash Cardiology Exam Const Appearance: cooperative, healthy appearing, comfortable and no acute distress Nutritional Appearance: average body habitus and well nourished Orientation: alert, awake and oriented x3 Head Head: normal to inspection Ears: hearing grossly normal bilaterally Nose: external nose normal Face and Sinus: face symmetric Mouth: moist mucous membranes Eyes General: appearance normal, both eyes and all related structures Eyelids: eyelids normal EOM: EOM intact bilaterally Neck Neck: normal visual inspection and no JVD Carotids: normal carotid upstroke Chest Chest inspection: normal inspection of the chest, symmetric chest movement and normal respiratory effort; Negative cough Auscultation: Bilateral: Clear to Auscultation Cardio Rate: regular rate Rhythm: irregular rhythm Heart sounds: S1 normal and S2 normal; Negative rub, gallop or murmur GI GI: normal to inspection Neuro General: patient alert, patient awake, patient oriented x3 and CN's II-XI intact bilaterally Skin Skin: no rashes or lesions noted Extremities Pulses: Normal: Right Radial Pulse and Left Radial Pulse and Diminished: Right Posterior Tibial Pulse and Left Posterior Tibial Pulse Lower Extremity Edema: None: Bilateral (Cool to touch) Psych Psychological: normal affect Supplemental Info Supplemental Information Stress test on 11/03/2023: Conclusion: Abnormal pharmacologic myocardial perfusion stress test with mild mid anterior ischemia. Preserved ejection fraction. Lower Extremity Arterial Exam without Exercise from 11/02/2023: Interpretation Summary Right JORDAN 0.74, moderate arterial insufficiency. Doppler/PVR waveforms and segmental pressures reveal [id number] femoral disease. Left JORDAN 0.99, mild arterial insufficiency. Doppler/PVR waveforms and segmental pressures reveal no focal disease Renal Artery Duplex from 11/17/2023: Interpretation Summary Right renal artery patent with normal velocities and no evidence of stenosis Left renal artery patent with normal velocities and no evidence of stenosis Right renal vein patent Left renal vein patent Right kidney small in size Left kidney normal in size Assessment and Plan Assessment and Plan (1) H/O coronary artery bypass surgery: Status: Resolved Comment: CABG x 2 FAIR-LAD, SVG-RPDA 01/29/2003 Plan: Stress test from 11/03/2023 was abnormal. She will proceed with heart catheterization. Depending on results, further recommendation be made. (2) Paroxysmal atrial fibrillation: Status: Chronic Comment: Failed DCCV; failed drug therapy; radiofrequency ablation 2015 Plan: Her heart is well controlled. She will continue metoprolol for rate control and Xarelto for CVA protection. We will continue to monitor. (3) Essential (primary) hypertension: Status: Chronic Plan: Patient's blood pressure is well-controlled. We will continue to monitor. We will not make any medication regimen changes. (4) Peripheral vascular occlusive disease: Status: Chronic Plan: Arterial study on 11/03/2023 showed right JORDAN 0.74 and left JORDAN 0.99. She was referred to vascular team for evaluation and assistance.
[2023-12-03 07:49] VITALS: BMI 27.6
--- NOTE | 2023-12-06 08:37 | CL.D_ITS ---
Patient Name: TACOS ESPINOZA Study Date: 12/06/2023 Performing: Johnny Kwon MD Ht: 69 inches 175.26 cm : 1950 Wt: 187 lbs 84.82 kg Age: 73 Gender: female BSA: 2.01 PROCEDURE(S) PERFORMED [id number])LHC/COR/LV/CABG CLINICAL PROFILE AND INDICATIONS Indications: Worsening Angina Heart Failure: None Stress/Imaging Date: 11/27/23Stress Test with SPECT MPI: Positive Low Risk CAD Presentations: Stable angina. Symptom unlikely to be ischemic. CONCLUSIONS Coronary disease status post coronary bypass surgery with well revascularized LAD and right coronary artery territories and preserved ejection fraction. RECOMMENDATIONS Medical therapy DESCRIPTION OF PROCEDURE The patient arrived to the procedure lab. The risks and benefits of the procedure as well as a full description of our services here and current unavailability of surgical backup were fully explained to the patient and/or their significant other prior to the catheterization. The Timeout was completed, verifying the correct patient and procedure. The patient's procedural site was prepped and draped in the usual fashion. Local anesthetic was given subcutaneously to left radial region with Lidocaine 2%. Using a modified Seldinger technique, arterial access was obtained via the left radial artery, a 6Fr sheath was inserted. Left internal mammary artery graft to the LAD selective angiography was performed in multiple views using a 5 Fr. IM catheter. Left Coronary Artery selective angiography was performed in multiple views using a 5 Fr. JL4 catheter. Right Coronary Artery selective angiography was then performed in multiple views using a 5 Fr. 3DRC (Sagar) catheter. Saphenous Vein graft to the RPDA selective angiography was performed in multiple views using a 5 Fr. AR MOD catheter. Left Ventriculography was performed in YEH projection using a 5 Fr. Pigtail catheter.The arterial sheath was pulled and a TR Band was applied for hemostasis w/ 10ml air CORONARY ANGIOGRAPHY DOMINANCE: Right Dominant LEFT HEART ASSESSMENT Left Ventricular Ejection Fraction: by LV Gram 65 % Normal LV wall motion Normal Left Ventricular systolic function LEFT MAIN: Mild calcification LEFT ANTERIOR DESCENDING ARTERY: MID LAD: is occluded DIAGONAL 1: Ostial - Mild disease noted in the first diagonal vessel CIRCUMFLEX ARTERY: Nondominant with no significant disease RIGHT CORONARY ARTERY: Dominant severely calcified and subtotally occluded in the proximal region GRAFTS: FAIR graft to the Mid LAD is patent Saphenous Vein graft to the RPDA is patent And it is a large vessel with no significant stenosis present. COMPLICATIONS No Complications PROCEDURE MEDICATIONS Versed 1 mg IV Fentanyl 50 mcg IV Oxygen: 2 L/min via nasal cannula Heparin given IA 12/06/2023 07:57:51 Verapamil 2.5mg, Ntg 200mcgs, 2000 units of Heparin given IA 12/06/2023 07:57:51 IV Bolus: .9 NaCl ml total 12/06/2023 08:03:24 SUMMARY OF HEMODYNAMIC DATA Time AIR REST ECG 07:12:30 AO 75/44 (57) SA 08:03:58 AO 85/45 (62) 08:12:34 AO 96/47 (68) 08:17:37 LV 104/0, 10 08:22:51 LV 98/1, 12 08:23:13 AIR REST 08:35:08 Signed By Johnny Kwon MD On 12/06/2023 08:36:38 Johnny Kwon MD
[2023-12-08 02:23] LABS: Bedside Glucose 77 mg/dL (74-106)
[2023-12-08 02:23] LABS: Bedside Glucose 56 mg/dL (74-106)
== END 2023-12-06 11:45 | disposition home or self-care (01) ==
PROVIDERS: Nurse Practitioner Family; PCP Student in an Organized Health Care Education/Training Program; Referring Provider Internal Medicine Cardiovascular Disease; Visit Provider Internal Medicine Cardiovascular Disease
DX: I25.118 Atherosclerotic heart disease of native coronary artery with other forms of angina pectoris (principal); E10.51 Type 1 diabetes mellitus with diabetic peripheral angiopathy without gangrene; J44.9 Chronic obstructive pulmonary disease, unspecified; E10.42 Type 1 diabetes mellitus with diabetic polyneuropathy; E10.22 Type 1 diabetes mellitus with diabetic chronic kidney disease; I73.9 Peripheral vascular disease, unspecified; I48.0 Paroxysmal atrial fibrillation; N18.30 Chronic kidney disease, stage 3 unspecified; I12.9 Hypertensive chronic kidney disease with stage 1 through stage 4 chronic kidney disease, or unspecified chronic kidney disease; Z87.891 Personal history of nicotine dependence; Z95.1 Presence of aortocoronary bypass graft
CPT/HCPCS: 36415; 71046; 80048; 82962; 85025; 93459; 99152; 99153; C1894; Q9967; C1769

== ENCOUNTER → 2024-03-22 | Outpatient (CLI) | payer MEDICARE, SELFPAY ==
--- NOTE | 2024-03-22 13:22 | MRI_ITS ---
HISTORY: Low back pain, bilateral leg pain. TECHNIQUE: Multiplanar and multisequence MR images of the lumbar spine were obtained without intravenous contrast. 140 images. COMPARISON: XR 03/10/2024, MR 07/10/2004. FINDINGS: VERTEBRAE: Vertebral body heights maintained. Mild degenerative bone marrow endplate changes, particularly at L3-4 and L5-S1. ALIGNMENT: No anterior or posterior subluxation. CONUS: Normal morphology and position of the conus medullaris at the lower L1 level. INTERVERTEBRAL DISCS: T12-L1: Mild posterior disc bulge osteophyte complex with facet arthropathy resulting in minimal narrowing of the thecal sac and mild bilateral foraminal narrowing, new from prior. L1-2, L2-3: Minimal disc bulge with facet arthropathy. No significant central canal stenosis or foraminal narrowing. L3-4: 16 mm long right paracentral disc extrusion with inferior migration into the lateral recess resulting in right L4 nerve root impingement and with facet arthropathy causing severe central canal stenosis and moderate bilateral foraminal narrowing with bilateral L3 nerve root abutment. L4-5: Very mild disc bulge with progression of facet arthropathy and a new 9 mm right synovial cyst impinging the right L5 and S1 nerve roots. Moderate central canal stenosis with mild bilateral foraminal narrowing. L5-S1: Posterior disc bulge osteophyte complex with facet arthropathy resulting in mild central canal stenosis, moderate right, and moderate-severe left foraminal narrowing with left L5 nerve root abutment. SOFT TISSUES: Right renal scarring with an incompletely imaged cystic lesion. Mild posterior subcutaneous edema. MRI/Spine Lumbar (Routine) IMPRESSION: Progression of multilevel degenerative disc and facet disease. Right paracentral disc extrusion of L3-4 resulting in right nerve root impingement, severe spinal canal stenosis, and moderate bilateral foraminal narrowing with nerve root abutment. 9 mm right L4-5 synovial cyst resulting in right nerve root impingement. Moderate spinal canal stenosis of L4-5. Moderate right and moderate-severe left foraminal narrowing of L5-S1. Right renal scarring with incompletely imaged cystic lesion. Recommend follow-up ultrasound or CT. Electronically Signed: Yana Sue MD at 14:11 EDT ,
== END | disposition home or self-care (01) ==
PROVIDERS: PCP Student in an Organized Health Care Education/Training Program; Referring Provider Orthopaedic Surgery Orthopaedic Surgery of the Spine; Visit Provider Orthopaedic Surgery Orthopaedic Surgery of the Spine
DX: M54.16 Radiculopathy, lumbar region (principal)
CPT/HCPCS: 72148

== ENCOUNTER → 2024-04-05 | Outpatient (CLI) | payer MEDICARE, SELFPAY ==
--- NOTE | 2024-04-05 14:44 | CT_ITS ---
STUDY: CT LUMBAR SPINE WITHOUT CONTRAST REASON FOR EXAM: Female, 73 years old. Pain RADIATION DOSAGE (If Supplied By Facility): CTDIvol = ( 14.38 ) mGy, DLP = ( 424.98 ) mGycm TECHNIQUE: The patient was scanned in a multi detector CT scanner. High resolution transaxial imaging was performed. Images were obtained from L1 to S1 vertebral level. Sagittal and coronal images were reconstructed. Individualized dose optimization techniques were used for this CT. COMPARISON: Comparison is made with prior MRI of the lumbar spine dated March 22, 2024. FINDINGS: Normal lumbar lordosis. There is no substantial scoliosis. Multilevel spondylosis. L1-2: Mild degree of disc space narrowing. No significant central or foraminal stenosis is seen. L2-3: Facet joint osteoarthritis and hypertrophy. No significant neural foraminal stenosis seen. Spondylosis. L3-4: Mild degree of disc space narrowing. Facet joint osteoarthritis and hypertrophy. Hypertrophy of the ligamenta flava. Mild degree of diffuse posterior disc bulge causing bilateral neural foraminal and central canal stenosis. L4-5: Facet joint osteoarthritis and hypertrophy. Hypertrophy of the ligamenta flava. Central posterior disc bulge. Moderate degree of bilateral neural foraminal stenosis and central canal stenosis. L5-S1: Marked degree of disc space narrowing with degenerative disc and spondylosis. Left neural foraminal stenosis. Atherosclerotic calcification of the abdominal aorta. Findings suggestive of right renal cysts. CT/Spine Lumbar without Contrast IMPRESSION: Multilevel degenerative changes, as described above. Electronically Signed: Ramiro Valentin MD at 15:30 EDT ,
== END | disposition home or self-care (01) ==
LOC: CT 14:39
PROVIDERS: PCP Student in an Organized Health Care Education/Training Program; Referring Provider Orthopaedic Surgery Orthopaedic Surgery of the Spine; Visit Provider Orthopaedic Surgery Orthopaedic Surgery of the Spine
DX: M51.36 Other intervertebral disc degeneration, lumbar region (principal)
CPT/HCPCS: 72131; Q9967

== ENCOUNTER → 2024-04-11 | Outpatient (CLI) | payer MEDICARE, SELFPAY | END | disposition home or self-care (01) | LOC: PSN 10:40 | PROVIDERS: PCP Student in an Organized Health Care Education/Training Program; Referring Provider Nurse Practitioner Family; Visit Provider Nurse Practitioner Family | DX: I48.0 Paroxysmal atrial fibrillation (principal); I10 Essential (primary) hypertension; I73.9 Peripheral vascular disease, unspecified; Z95.1 Presence of aortocoronary bypass graft | CPT/HCPCS: 93225; 93226 ==

== ENCOUNTER 2024-06-02 08:00 | Day surgery (SDC) | payer MEDICARE, SELFPAY ==
--- NOTE | 2024-06-02 08:59 | EKG12_ITS ---
Test Reason : PREOP Blood Pressure : / mmHG Vent. Rate : 089 BPM Atrial Rate : 089 BPM P-R Int : 136 ms QRS Dur : 082 ms QT Int : 394 ms P-R-T Axes : 077 067 026 degrees QTc Int : 479 ms Sinus rhythm with marked sinus arrhythmia with occasional Premature ventricular complexes Otherwise normal ECG Confirmed by REVA HUMPHREY, MARQUES ([id number]), magazine editor MIRANDA MCLEAN ([id number]) on 06/07/2024 10:41:37 A M Referred By: Corbin Jones Confirmed By:SOL ARDON MD
[2024-06-02 09:19] LABS: Basophil# 0.04 X10^3/uL; Basophil% 0.5 % (0-1); Eosinophil# 0.04 X10^3/uL; Eosinophils% 0.5 % (0-5); Hemoglobin 13.4 g/dL (12.0-15.0); Lymphocyte % 18.5 % (19-41); Mean Corp Hgb Conc 33.5 g/dL (32-36); Mean Corpuscular Hgb 29.9 pg (27.0-32.0); Mean Corpuscular Volume 89.3 fL (81-99); Mean Platelet Vol. 9.8 fl (6.2-12.0); Monocyte% 6.2 % (0-10); NRBC Flagged by Analyzer 0 % (0-5); Neutrophil # 6.01 X10^3/uL (2.7-7.7); Neutrophil % 73.9 % (47-70); Platelet Count 224 K/mm3 (150-450); RBC Distribution Width CV 13.2 % (11.6-14.6); RBC Distribution Width SD 42.8 fl (35.1-43.9); Red Blood Count 4.48 M/mm3 (4.2-5.4); White Blood Count 8.1 K/mm3 (4.4-11.0)
[2024-06-02 09:39] LABS: Magnesium 1.4 mg/dL (1.6-2.6)
[2024-06-02 09:43] LABS: Anion Gap 10 (5-15); BUN 14 mg/dL (7-18); BUN/Creat Ratio 12.8 RATIO (10-20); Calcium,Total 9.2 mg/dL (8.5-10.1); Chloride 100 mmol/L (98-107); Creatinine, Serum 1.09 mg/dL (0.55-1.02); EST Glomerular Filtration Rate 52 mL/min (>60); Est Glom Filt Rate - Afr Amer 64 mL/min (>60); Glucose 157 mg/dL (74-106); Potassium 3.1 mmol/L (3.5-5.1); Sodium Level 137 mmol/L (136-145)
[2024-06-02 10:45] LABS: HIV - WCH Non-Reactive (Nonreactive); Hepatitis B Surface Antibody Non-Reactive; Hepatitis C Antibody Non-Reactive (Nonreactive)
[2024-06-02 23:42] LABS: Hemoglobin A1c 6.6 % (3.8-5.6)
[2024-06-03 06:13] LABS: Hepatitis A AB, Total Negative (Negative)
[2024-06-05 13:25] LABS: Potassium 3.1 mmol/L (3.5-5.1)
== END 2024-06-05 15:35 | disposition home or self-care (01) ==
LOC: SDC 01-24 16:16
PROVIDERS: Anesthesiology; PCP Student in an Organized Health Care Education/Training Program; Referring Provider Orthopaedic Surgery Orthopaedic Surgery of the Spine; Visit Provider Orthopaedic Surgery Orthopaedic Surgery of the Spine
DX: Z01.818 Encounter for other preprocedural examination (principal)
CPT/HCPCS: 36415; 80048; 83036; 83735; 84132; 85025; 86703; 86706; 86708; 86803; 86850; 86900; 86901; 87081; 93005

== ENCOUNTER → 2024-07-12 | Outpatient (CLI) | payer MEDICARE, SELFPAY ==
--- NOTE | 2024-07-12 13:15 | CT_ITS ---
STUDY: CTA OF THE ABDOMINAL AORTA AND BILATERAL LOWER EXTREMITIES REASON FOR EXAM: Female, 74 years old. PAOD with history of revascularization RADIATION DOSAGE (If Supplied By Facility): CTDIvol = ( 65.10 ) mGy, DLP = ( 1279.55 ) mGycm TECHNIQUE: Axial CT angiography multi-detector data acquisition was obtained from the dome of the liver to the level of the ankles following intravenous administration of 100 ML ISOVUE 370. Axial images and MIP images were reconstructed from the axial data set. Post-processing of the angiographic images was performed, with multiplanar reformation and 3D reconstruction. Individualized dose optimization techniques were used for this CT. TECHNICAL QUALITY: Good COMPARISON: None. Descriptors of Narrowing: None (0%) Mild (< 50%) Moderate (50-70%) Severe (70-90%) Subtotal/Total Occlusion (90-100%) Non-Evaluable (technically non-diagnostic FINDINGS: Fatty infiltration of liver. Hiatal hernia. The patient is status post cholecystectomy. Right renal cysts. Dilated common bile duct. There is thickening of the distal stomach. Clinical correlation recommended. Abdominal aorta: Abdominal aortic calcification. Mild mural thrombus. Celiac and superior mesenteric arteries: Atherosclerotic plaque formation at the origin of the celiac artery and superior mesenteric artery. Inferior mesenteric artery: No demonstrated narrowing. Right renal artery(arteries): Atherosclerotic plaque formation. Left renal artery(arteries): Atherosclerotic plaque formation. Right common iliac artery: Dense atherosclerotic plaque formation. Right external iliac artery: Atherosclerotic plaque formation. Significant stenosis seen throughout its course. Right internal iliac artery: No demonstrated narrowing. Left common iliac artery: Atherosclerotic plaque formation. Left external iliac artery: Significant stenosis throughout its course. Left internal iliac artery: No demonstrated narrowing. RIGHT LOWER EXTREMITY Right common femoral artery: No demonstrated narrowing. Right profundus femoris: No demonstrated narrowing. Right superficial femoral: Multiple calcific plaques throughout the course of the superficial femoral artery. There is patency although there are focal areas of tight stenosis. Right popliteal artery: Atherosclerotic plaque formation. Right tibioperoneal trunk: No demonstrated narrowing. Right anterior tibial artery: The anterior tibial artery is patent to its distal portion. Right posterior tibial artery: No demonstrated narrowing. Right peroneal artery: No demonstrated narrowing. LEFT LOWER EXTREMITY Left common femoral artery: No demonstrated narrowing. Left profundus femoris: No demonstrated narrowing. Left superficial femoral: Scattered calcific plaques. Left popliteal artery: Minimal calcific plaques. Left tibioperoneal trunk: No demonstrated narrowing. Left anterior tibial artery: No demonstrated narrowing. Left posterior tibial artery: No demonstrated narrowing. Left peroneal artery: No demonstrated narrowing. CT/CTA Abd w/Runoff W/WO Contrast IMPRESSION: Multiple stenosis throughout the course of the right superficial femoral artery with two-vessel runoff. Electronically Signed: Ramiro Valentin MD at 10:58 EDT ,
[2024-07-12 14:02] LABS: CREATININE FINGERSTICK < 1.0 mg/dL (0.55-1.02); EGFR FINGERSTICK > 60.0000 mL/min (>60)
== END | disposition home or self-care (01) ==
LOC: CT 13:09
PROVIDERS: PCP Student in an Organized Health Care Education/Training Program; Referring Provider Physician Assistant; Visit Provider Physician Assistant
DX: I73.9 Peripheral vascular disease, unspecified (principal); I70.0 Atherosclerosis of aorta
CPT/HCPCS: 75635; Q9967

== ENCOUNTER 2024-07-18 13:03 | Inpatient (IN) | payer MEDICARE, SELFPAY ==
[2024-07-18] VITALS (16 sets, daily range): BP systolic 110–163; BP diastolic 55–84; PULSE 68–94; RESP 14–18; TEMP 35.7–36.8; O2SAT 95–100; BMI 28.3
[2024-07-18] MEDS: Lactated Ringers 1,000 ML 15 ML IV (06:02)
[2024-07-18] MEDS: Acetaminophen 500 MG Tablet 1000 MG PO ×3 (06:03→22:41)
[2024-07-18] MEDS: Magnesium 2 GM for ERAS IV (06:03)
--- NOTE | 2024-07-18 06:30 | RAD_ITS ---
PROCEDURE: Intraoperative imaging provided for fusion at the L3-L4 and L4-L5 levels. DATE OF EXAMINATION: July 18, 2024. INDICATION: Female, 74 years old. Chronic low back pain. FLUOROSCOPY TIME (if supplied): (3 minutes and 51 seconds) minutes/seconds. 113.66 mGy. 11 intraoperative imaging provided. RAD/Lumbar Spine 2 or 3 Views IMPRESSION: Intraoperative imaging provided for fusion and disc placement at the L3-L4 and L4-L5 levels as well as vertebroplasty. Electronically Signed: Ramiro Valentin MD at 14:13 EDT ,
[2024-07-18 06:43] LABS: Bedside Glucose 136 mg/dL (74-106)
--- NOTE | 2024-07-18 06:56 | PCM.PRE.AN2 ---
ASA Classification* ASA Classification ASA Classification: 3 Assessment & Plan Anesthesia* Anesthesia Assessment Anesthesia Assessment: Discussed sedation and/or anesthesia options, risks, benefits, and alternatives with patient/parents/legal guardian/POA. Questions invited. The patient/parents/legal guardian/POA seems to understand and agrees to proceed with anesthesia plan. Reviewed the physical assessment, medical history, allergy history and patient home medications list prior to surgery/procedure/anesthetic and documented any changes. Performed airway and anesthesia risk assessments. Anesthesia Type Anesthesia Type: General Anesthesia Focused Assessment* Temperature: 96.3 F Pulse Rate: 94 Blood Pressure: 146/69 Respiratory Rate: 18 Pulse Ox: 97 Airway Assessment Mouth opens: >3 cm Mallampati Score: II Focused Labs Anesthesia Preop lab: CBC WBC 8.1 K/mm3 (4.4-11.0) 06/02/24 08:31 RBC 4.48 M/mm3 (4.2-5.4) 06/02/24 08:31 Hgb 13.4 g/dL (12.0-15.0) 06/02/24 08:31 Hct 40.0 % (37-47) 06/02/24 08:31 Plt Count 224 K/mm3 (150-450) 06/02/24 08:31 CHEMISTRY Potassium 3.1 mmol/L (3.5-5.1) L 06/05/24 11:25 Sodium 137 mmol/L (136-145) 06/02/24 08:31 Magnesium 1.4 mg/dL (1.6-2.6) L 06/02/24 08:31 Phosphorus 3.4 mg/dL (2.5-4.9) 01/02/21 06:46 BUN 14 mg/dL (7-18) 06/02/24 08:31 Creatinine 1.09 mg/dL (0.55-1.02) H 06/02/24 08:31 Glucose 157 mg/dL (74-106) H 06/02/24 08:31 POC Glucose 136 mg/dL (74-106) H 07/18/24 05:48 TSH 2.18 uIU/mL (0.358-3.74) 06/08/15 12:52 COAG PT 13.1 SECONDS (11.7-14.9) 03/29/19 12:44 Pre-Assessment Diagnosis/Proposed Procedure Planned Operative Procedure(s): 360 LUMBAR FUSION L3-4,L4-5 L5-S1 Anesthesia History 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 When Was Last Pacemaker Check QUESTION #4 FULL TEXT: You/Your Family Experience fever (hyperthermia) with Anesthesia Last Oral Intake Last Oral intake: Last Oral Intake NPO since 00:00 07/18/24 06:07 Meds taken in AM with sips of No 07/18/24 06:07 water? 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 Has anyone observed you stop No 07/03/24 08:42 breathing during sleep? STOP Results Positive 07/03/24 08:42 QUESTION #5 FULL TEXT : Do you snore loudly (louder than talking or can be heard through closed doors)? 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 Specify any problems Hx of Preganancy in last 3 No 07/03/24 08:42 Months Nurse Filling Out Transfusion DSCHRIBER 07/03/24 08:42 & Questions: Date: 07/03/24 07/03/24 08:42 Time: 08:45 07/03/24 08:42 Patient unable to answer at this time (ie. confused, unrespo /Reproduction History /Reproductive History - clay house worker: /Reproductive Hx- clay house worker Hx Now No 07/03/24 08:42 Gestational Age (in weeks): EDC: Hx Hx Para Hx Section SAB No 07/03/24 08:42 Active Medications Active Medications: Current Medications Generic Name Dose Route Start Last Admin Trade Name Freq PRN Reason Stop Dose Admin Acetaminophen 1,000 mg 07/18/24 07:30 07/18/24 06:03 Acetaminophen 500 Mg Tablet PO 07/18/24 07:31 1,000 mg X1 ONE Administration Cefazolin Sodium 2 gm/ Sodium 110 mls @ 150 mls/hr 07/18/24 07:30 Chloride IV 07/18/24 08:13 PREOP ONE Magnesium Sulfate 2 gm/ 104 mls @ 208 mls/hr 07/18/24 07:30 07/18/24 06:36 Dextrose IV 07/18/24 07:59 Infused X1 ONE Infusion Lactated Ringer's 1,000 mls @ 15 mls/hr 07/18/24 05:45 07/18/24 06:02 IV 15 mls/hr .Q48H MOI Administration Insulin Human Lispro 1 - 6 unit 07/18/24 07:30 Insulin Lispro 100 Unit/Ml Insuln.Pen SC Q4H PRN PRN BG>/= 180, SEE PROTOCOL Protocol PFSH Medical History History of stress test Wears glasses Wears dentures Cancer Depression Insulin dependent diabetes mellitus Walker as ambulation aid Arthritis Fatty liver High cholesterol Restless legs History of hiatal hernia Shortness of breath on exertion Former smoker Asthma COPD (chronic obstructive pulmonary disease) Leg cramps History of echocardiogram History of stress test Cardiology follow-up encounter History of atrial fibrillation Fracture of right femur Hyperglycemia due to type 1 diabetes mellitus Acute dehydration Chronic atrial fibrillation with rapid ventricular response Cyclic vomiting syndrome Hypomagnesemia NPDR (nonproliferative diabetic retinopathy) Chronic vomiting Peripheral vascular occlusive disease Anxiety Renal cell carcinoma Atherosclerosis of coronary artery of [place] heart without angina pectoris Essential (primary) hypertension Gastro-esophageal reflux disease without esophagitis Peripheral neuropathy Chronic kidney disease, stage 3 Mild chronic obstructive pulmonary disease Type II diabetes mellitus Home Medications ?Medication ?Instructions ?Recorded ?Last Taken ?Type atorvastatin 80 mg tablet 80 mg PO DAILY cholesterol 07/31/17 07/17/24 History insulin human U-100 NPH-regulr 22 unit SQ BID diabetes 07/31/17 07/17/24 History 70-30 mix 100 unit/mL subcutaneous susp ondansetron HCl 8 mg tablet 8 mg PO Q8H PRN PRN 01/06/21 Unknown Rx Nausea/Vomiting #15 tabs esomeprazole magnesium 40 mg 40 mg PO DAILY gerd 07/07/21 07/17/24 History capsule,delayed release rivaroxaban 20 mg tablet (Xarelto) 20 mg PO DAILY a fib 08/16/21 08/24/24 History sertraline 100 mg tablet 100 mg PO DAILY depression 07/07/21 07/17/24 History buspirone 10 mg tablet 10 mg PO DAILY cyclic vommitting 09/28/23 07/17/24 History gabapentin 300 mg capsule 300 mg PO TID cyclic vomitting 09/28/23 07/17/24 History pantoprazole 40 mg tablet,delayed 40 mg PO BID cyclic vomiting 09/28/23 07/17/24 History release metoprolol succinate 100 mg 100 mg PO DAILY irreg. heart beat 03/24/24 07/17/24 History tablet,extended release 24 hr ropinirole 5 mg tablet 5 mg PO TID restless legs 03/24/24 07/17/24 History sucralfate 1 gram tablet 1 g PO 4X/DAY PRN gerd 03/24/24 Unknown History Allergy/AdvReac Type Severity Reaction Status Date / Time diphenhydramine HCl (From AdvReac restless Verified 07/18/24 05:53 Benadryl) legs dofetilide AdvReac LONG QT Verified 07/18/24 05:53 haloperidol (From Haldol) AdvReac Other Verified 07/18/24 05:53 metoclopramide (From Reglan) AdvReac restless Verified 07/18/24 05:53 legs Family History Mother Cancer Stomach Father Colon cancer Heart disease Sister Colon cancer Surgical History History of bladder repair surgery History of cardiac catheterization (~11/2023) History of angioplasty of peripheral vessel (07/2013) History of cholecystectomy (08/2019) History of radiofrequency ablation procedure for cardiac arrhythmia (03/19/16) History of cardioversion (2014) History of open reduction and internal fixation (ORIF) procedure H/O laminectomy History of colonoscopy H/O coronary artery bypass surgery (01/29/03) History of hysterectomy (1995) History of esophagogastroduodenoscopy (EGD) (01/2018) History of partial nephrectomy Social History household members: none Smoking Status: Former smoker pack-years: 40 how long ago did patient quit smokin alcohol intake: never substance use type: does not use caffeine: Yes (Occasionally) Type: carbonated beverages Review of Systems (Anesthesia) ROS Narrative System reviewed and no additional complaints, except as documented.
--- NOTE | 2024-07-18 07:24 | PCM.HP.BLA ---
History and Physical Date of Admission: 07/18/24 MR#: [id number] Acct: [id number] Name: TACOS ESPINOZA Rep #: [id number] : 1950 Provider: Dr. Corbin Jones MD Age/Sex: 73/F [place] [facility] [place] Status: Signed Intake Vital Signs 03/24/2409:45 Height 5 ft 9 in Intake Visit Reasons: lumbar spine Chief Complaint: pre op lumbar spine Is patient in pain?: Yes (low back ) Pain scale (1-10): 6 Allergies diphenhydramine HCl (From Benadryl) Adverse Reaction (Verified 05/12/24 09:57) restless legsdofetilide Adverse Reaction (Verified 05/12/24 09:57) LONG QThaloperidol (From Haldol) Adverse Reaction (Verified 05/12/24 09:57) Othermetoclopramide (From Reglan) Adverse Reaction (Verified 05/12/24 09:57) restless legs Medications ?Medication ?Instructions ?Recorded ?Confirmed ?Type atorvastatin 80 mg tablet 80 mg PO DAILY cholesterol 07/31/17 03/28/24 History insulin human U-100 NPH-regulr 22 unit SQ BID diabetes 07/31/17 03/28/24 History 70-30 mix 100 unit/mL subcutaneous susp ondansetron HCl 8 mg tablet 8 mg PO Q8H PRN PRN 01/06/21 03/28/24 Rx Nausea/Vomiting #15 tabs esomeprazole magnesium 40 mg 40 mg PO DAILY 07/07/21 03/28/24 History capsule,delayed release rivaroxaban 20 mg tablet (Xarelto) 20 mg PO DAILY 07/07/21 03/28/24 History sertraline 100 mg tablet 100 mg PO DAILY 07/07/21 03/28/24 History buspirone 10 mg tablet 10 mg PO DAILY 09/28/23 03/28/24 History gabapentin 300 mg capsule 300 mg PO TID 09/28/23 03/28/24 History pantoprazole 40 mg tablet,delayed 40 mg PO DAILY 09/28/23 03/28/24 History release metoprolol succinate 100 mg 100 mg PO DAILY 03/24/24 03/28/24 History tablet,extended release 24 hr ropinirole 5 mg tablet 5 mg PO TID 03/24/24 03/28/24 History sucralfate 1 gram tablet 1 g PO 4X/DAY 03/24/24 03/28/24 History PFSH Medical History Fracture of right femur Hyperglycemia due to type 1 diabetes mellitus Acute dehydration Chronic atrial fibrillation with rapid ventricular response Cyclic vomiting syndrome Hypomagnesemia NPDR (nonproliferative diabetic retinopathy) Chronic vomiting Peripheral vascular occlusive disease Anxiety Renal cell carcinoma Atherosclerosis of coronary artery of [place] heart without angina pectoris Essential (primary) hypertension Gastro-esophageal reflux disease without esophagitis Peripheral neuropathy Chronic kidney disease, stage 3 Mild chronic obstructive pulmonary disease Type II diabetes mellitus Surgical History History of angioplasty of peripheral vessel (07/2013) History of cholecystectomy (08/2019) History of radiofrequency ablation procedure for cardiac arrhythmia (03/19/16) History of cardioversion (2014) History of open reduction and internal fixation (ORIF) procedure H/O laminectomy History of colonoscopy H/O coronary artery bypass surgery (01/29/03) History of hysterectomy (1995) History of esophagogastroduodenoscopy (EGD) (01/2018) History of partial nephrectomy Family History Mother Cancer StomachFather Colon cancer Heart diseaseSister Colon cancer Social History household members: none Smoking Status: Former smoker pack-years: 40 how long ago did patient quit smokin alcohol intake: never substance use type: does not use caffeine: Yes (Occasionally) Type: carbonated beverages HPI lumbar spine Chief Complaint: pre op lumbar spine Details: This documentation accurately reflects the service provided and the decisions made by me, Dr. Corbin Jones MD 05/12/24 09. Part of today?s visit was documented by [ ], acting as scribe. TACOS ESPINOZA is a 73 year old F here today for pre op L3-S1 anterior posterior fusion.DOS 06-06-24 Tacos continues to have low back pain with bilateral left worse than right lower extremity radiation with difficulty walking distances. She underwent cardiac clearance for surgery. She is on Xarelto and aspirin. Following is a previous history: 03/28/24: TACOS ESPINOZA is a 73 year old F here today for MRI review of the lumbar spine. Patient states no changes to the lumbar spine pain since the last time she was seen. She rates her pain 5/10 today. Patient denies taking any pain medication for the pain at all. Tacos continues to have severe low back pain radiating to both lower extremities worse on the left side. She is only able to walk a few 100 yards at a time after which she has to find a place to sit down. She has been having cyclical vomiting. She has an outside report of HbA1c 7.1 done in February of this year. She is here to review the MRI. Following is her previous history: 03/10/24: TACOS ESPINOZA is a 73 year old F here today NEW patient for low back pain. She states that she has had pain for years. She states she had surgery on her low back in 1991. She states that her pain radiates down both legs along with numbness. She states that she has neuropathy in both legs. She also notes that on 02/24/23 she broke her right femur. She states that prolonged standing causes her to get spasms along with walking. She has had injections in her back before but it was a few years ago. She did do PT but it was a few years ago as well. She denies taking anything for the pain. Tacos has had a lumbar decompression surgery through possible laminotomies in the early likely at L5-S1 level. This surgery was done for lower back pain as well as bilateral lower extremity radiation. After the surgery her symptoms significantly improved but last only for about a few years. Since then she has always had low back pain radiating down to both lower extremities slightly worse on the left. The pain typically goes along the hamstrings and sometimes into the calf as well. She is unable to walk certain distances. She has been evaluated for vascular claudication and has undergone procedures for vascular occlusions few years ago. She has also had long-term treatment for her lower back symptoms with physical therapy and epidural injections a few years ago. She has A-fib and is on Xarelto lifelong. Ortho Exam General General: Yes no acute distress Neurologic: Yes alert and Yes oriented x3 Spine SPINE TESTING CERVICAL THORACIC LUMBAR Musculoskeletal Strength 0=absent - 5=normal Details: Examination of the back shows midline paraspinal tenderness in lower lumbar spine. Prior midline incision well-healed. Neurologic evaluation of lower extremity shows 5 x 5 power normal shows normal sensations in all dermatomes. Coding Level of Care Code Off vis,est,level 4 Diagnoses Synovial cyst of lumbar facet joint M71.38 Lumbar disc herniation with radiculopathy M51.16 Spinal stenosis of lumbar region with neurogenic claudication M48.062 Other intervertebral disc degeneration, lumbar region M51.36 Time Spent (min) 35 Comment Modifier 57 Assessment and Plan Assessment and Plan (1) Synovial cyst of lumbar facet joint: Status: Acute (2) Lumbar disc herniation with radiculopathy: Status: Acute (3) Spinal stenosis of lumbar region with neurogenic claudication: Status: Acute (4) Other intervertebral disc degeneration, lumbar region: Status: Acute Plan I again reviewed x-rays of the lumbar spine done previously. I also reviewed her MRI done recently. These show L5-S1 disc height loss with disc degeneration with vacuum phenomenon. Significant facet arthrosis seen at this level. MRI shows L3-4 central and right paracentral disc herniation with inferior migration with severe stenosis. L4-5 shows right facet synovial cyst. L5-S1 shows bilateral foraminal stenosis worse on the left with postsurgical changes from previous left laminotomy. I also reviewed recent lumbar CT scan which shows vacuum phenomena L5-S1 with severe facet hypertrophy bilaterally at L5-S1. I again explained to her the imaging findings in detail. She has stenosis at multiple levels from L3-S1 with neurogenic claudication distance of a few 100 yards. She says that her axial back pain is made more severe than her leg symptoms but mentions of bilateral lower extremity radiation. She has facet synovial cyst suggestive of possible instability. I explained to her options of treatment which include continued nonoperative treat measures versus surgery. Patient has tried physical therapy and injections in the past but they never seem to help. She declines any of these modalities. She wishes to proceed with surgical intervention as she feels that her function is declining with time. I explained to her surgical options in detail. She has bilateral lower extremity symptoms with axial back pain worse than the leg pain with facet cyst suggestive of instability. Recommend L3-S1 anterior posterior fusion. All risk benefits and alternatives were discussed. The risks include but are not limited to infection, bleeding, injury to nerves and vessels, need for blood transfusion, injury to viscera, ileus, pseudoarthrosis, hardware failure, subsidence, need for further surgery, DVT, pulm embolism, pneumonia, atelectasis, cardiopulmonary event. Patient understands and agrees to proceed with surgery. Patient will hold blood thinners prior to surgery. Consent was signed. Discussed about possibly including only L3-5 and the fusion due to CTA finding of atherosclerotic plaques in both common iliac arteries. Patient understands and agrees.
[2024-07-18] MEDS: Cefazolin 2 GM in 0.9% Normal Saline (100mL Bag) 100 ML IV ×3 (07:36→22:40)
--- NOTE | 2024-07-18 12:38 | PCM.OPRPT ---
Report of Operation Date of Procedure: 07/18/24 Description of Surgical Findings:: Preoperative diagnosis: L3-5 disc degeneration, L3-4 disc herniation, L4-5 facet synovial cyst, stenosis with neurogenic claudication Postoperative diagnosis: Same Name of procedures L3-5 oblique lumbar interbody fusion (OLIF), minimally invasive left sided approach, lateral decubitus: ? L3-4 anterolateral spinal fusion 44568 ? L4-5 anterolateral fusion 37938/51 ? L3-4 insertion of cage 63512 ? L4-5 insertion of cage 16672/51 ? Bone graft aspirate left iliac crest separate incision ? Allograft cancellous chips Attending Surgeon: Dr. Corbin Jones Co-surgeon: Dr. Joselo Capps Estimated blood loss: 100 mL Anesthesia: General Complications: None Indications: Patient is a 74-year-old pleasant lady who has had a long history of low back pain and left worse than right lower extremity radiation, difficulty walking distances. Xrays & MRI revealed L3-S1 disc degeneration, L3-4 disc herniation, L4-5 facet synovial cyst, stenosis. After undergoing a prolonged period of nonoperative treatment, the patient elected to undergo surgical decompression & fusion. All surgical options were discussed with the patient including anterior and posterior approaches. All risks and benefits associated with the procedure were explained to the patient. The risks include but are not limited to infection, bleeding, injury to nerves and vessels including major vessels like IVC and aorta, persistent paresthesia, persistent pain, dural tear, need for further procedures, adjacent segment degeneration, pseudoarthrosis, hardware failure, retrograde ejaculation, paralytic ileus. After discussion of imaging with Dr. Capps, vascular surgeon, patient seems to have significant at rest sclerotic plaque burden in bilateral common iliac arteries, and a decision was made to restrict the surgery to L3-5 levels only. Patient was explained this preoperatively and she was in agreement. Procedure: The patient was identified in the preoperative holding suite using Unique patient identifiers. Skin was marked, consent was reviewed, and all questions were answered. The patient was then brought back to the operative room. A surgical timeout was performed to make sure correct procedure was being done on the correct patient and all operative room staff were on the same page. General endotracheal anesthesia was then given to the patient. Coleman catheter was inserted. The patient was then carefully positioned in right lateral decubitus position with the left side up on a regular OR table. Axillary roll was placed and all bony prominences were well- padded. Hip positioners were placed in the posterior buttocks and anterior sternal area. The surgical area was prepped and draped in usual fashion. Preoperative antibiotic was injected IV as preoperative antibiotic. A final timeout was then again done just before starting the procedure. A 2 inch incision oblique was taken in the left lower quadrant of the abdomen 2 fingerbreadths away from the iliac crest and the lower ribs. Sharp dissection with Bovie was carried out up to the fascia covering the external oblique. The external oblique, internal oblique and transversus abdominis muscles were split along the muscle fibers and retroperitoneal space was entered. Sponge sticks were utilized to move the bowel and peritoneum [id number]-way and psoas muscle was exposed staying within the retroperitoneal plane. Red Seraphim retractor system was positioned and the retractor blade was applied onto the psoas. The interval between psoas and midline structures was developed and appropriate retractors were placed. Once adequate interval was cleared, a disc space was identified and a marker x-ray was taken. This identified the L3-4 disc level. The prepsoas interval was then traced inferiorly and L4-5 disc level was identified.. Annulotomy was done with a long handled knife. Pituitary was used to remove disc material. Curettes were used to prepare the endplates. Disc space spreaders were utilized to distract and increase the disc height. Near complete discectomy was performed. Smaller disc distractors were also used to bluntly perform a contralateral annulotomy. Trials of serially increasing sizes were used. A Jamshidi needle was used to aspirate bone marrow from the left anterior iliac crest through a separate incision and this aspirate was mixed with the allograft bone chips. A Depuy Pool cage of size of the 18 x 50 x 16 mm with 15 degrees lordosis was packed with corticocancellous allograft bone chips mixed with bone marrow aspirate. This was inserted into the L4-5 disc space. The retractors were then repositioned to expose the L3-4 disc and the procedure was repeated with complete discectomy and endplate preparation. Cage size was 18 x 50 x 14 mm at L3-4. AP and lateral C-arm pictures were taken to confirm good position of the cage. Some bone chips were also packed around the cages. Screw with washer was placed into the upper L4 body with a washer partially covering the cage at L3-4. Hemostasis was confirmed. The retractor blades were removed. Closure was done in layers with a continuous strand of # 1 Vicryl in all muscle layers. 2-0 Vicryl was used for subcutaneous tissue and 4-0 for Monocryl for the skin. Steri-Strips were applied and 4 x 4 gauze and Tegaderm were applied. Surgeon: Corbin Jones Admit VTE Documentation VTE Mechan Device Prophylaxis: SCD's Procedures Musculoskeletal [id number]: Other Procedure See Report
--- NOTE | 2024-07-18 12:43 | PCM.OPRPT ---
Report of Operation Date of Procedure: 07/18/24 Description of Surgical Findings:: Preoperative diagnosis: L3-5 disc degeneration, L3-4 disc herniation, L4-5 facet stenosis, stenosis with neurogenic claudication Postoperative diagnosis: Same Name of procedures: L3-5 posterior percutaneous pedicle screw instrumented fusion, prone: ? L3-4 posterior spinal fusion 26108 ? L3-5 posterior pedicle screw instrumentation 36036 ? L4-5 posterior fusion 83719/51 ? Allograft cancellous chips Attending Surgeon: Dr. Corbin Jones Estimated blood loss: 100 mL (total for entire case) Anesthesia: General Complications: None Description of procedure: After the anterior procedure was complete, the patient was then turned supine. The patient was then transferred to Royal table in prone position. Back was prepped and draped in usual fashion. C-arm AP view was then taken. C-arm was positioned in a way that L3 was centralized and superior endplate of was parallel to the beam. Spinous process was centered between the pedicles. Midline was marked with skin marker and lateral borders of the pedicles were also marked. Skin marker was also utilized to thong transversely across the middle of the pedicles at L3. 2 transverse paramedian incisions of 1 inch were placed. The fascia was incised vertically. Finger dissection was utilized to palpate the transverse process and facet joint. Viper Prime screws with towers were inserted and docked onto the transverse processes. This was then slowly moved medially to reach the superior articular process of L3. This was then confirmed on C-arm and then a mallet was utilized to drive the trocar into the pedicle going up to the medial wall of the pedicle on AP view. This was performed both sides. C-arm lateral view confirmed that the tip of the trocar was in the vertebral body, and the screw was advanced into the pedicle and vertebral body. This was repeated similarly at L4 and L5 bilaterally. Screw sizes were 7 x 50 mm at L3, L4 and L5 on both sides. 70 mm precontoured titanium 5.5 mm lordotic jacinta on the right and 75 mm on the left were then passed through the screw extensions and reduced down to the screws with the help of [employer] instrumentation system on both sides. AP and lateral view of the C-arm showed good positioning of the screws and cages. Final tightening with the torque screwdriver was then completed. Anthony was utilized to roughen the facet joint at L3-4 and L4-5 on the right side. Cancellous allograft bone chips mixed with bone marrow aspirate were then placed over this decorticated area. Hemostasis was achieved. Closure was done in layers with 0 Vicryls for the fascia, 2-0 Vicryls for the subcutaneous tissue, and Monocryl for the skin. Dermabond was applied. Dressings were applied covered with Tegaderm. The patient was then turned supine onto a hospital bed. The patient was extubated and taken to PACU in stable condition. The patient tolerated the procedure well and no complications occurred. [employer] [place] [employer] Cutler cage & Viper Prime minimally invasive pedicle screw instrumentation system was utilized in this case. No dural tear was identified intraoperatively. I was present for the entirety of the case and performed the surgery. Surgeon: Corbin Jones planer feeder: Jaycee Hamm Admit VTE Documentation VTE Mechan Device Prophylaxis: SCD's Procedures Musculoskeletal [id number]-29xxx: Other Procedure See Report
[2024-07-18] MEDS: Ropivacaine 0.5% 30 ML Vial (12:48)
--- NOTE | 2024-07-18 13:05 | PCM.POST.ANE ---
Anesthesia: Postop Eval I Current Vital Signs Temperature: 97 F Pulse Rate: 68 Blood Pressure: 134/69 Respiratory Rate: 18 Pulse Ox: 98 Oxygen Delivery Method: Room Air Assessment Airway patent: Yes Spontaneous unlabored respirations: Yes Mental status: Awake and Calm nausea: No Vomiting: No Anesthesia Complication: No Fluid Hydration Crystalloid volume administer (ml): 2,000 Total IV fluid infused: 2,000 Progress Note Anesthesia document: Postop Eval 1 completed: Yes
--- NOTE | 2024-07-18 13:35 | SUR.PHASEI ---
PATIENT REPORTS CHRONIC NEUROPATHY TO FEET B/L BUT CAN FEEL SENSATION, MOVEMENT INTACT, NEURO EXAM OTHERWISE NEGATIVE.
[2024-07-18 14:14] LABS: Bedside Glucose 248 mg/dL (74-106)
[2024-07-18] MEDS: Insulin Lispro 100 UNIT/ML INSULN.PEN SC ×2 (14:14→20:38)
--- NOTE | 2024-07-18 15:39 | NURSING ---
alexsander Li RN pt started phase 2 in PACU at 1431
[2024-07-18] MEDS: Morphine 2 MG/ML Syringe IV ×2 (15:57→20:24)
--- NOTE | 2024-07-18 16:04 | POSTOPAN2_ITS ---
Anesthesia Postop Eval I Sum Postop Eval Completion status Anesthesia document: Postop Eval 1 completed: Yes Anesthesia Postop Eval I Summary Anesthesia Postop Eval I Summary: Anesthesia Postop Eval I: Assessment Summary Airway patent Yes 07/18/24 13:06 FUNERAL PRE ARRANGEMENT COUNSELOR.[email or web address] Spontaneous unlabored Yes 07/18/24 13:06 FUNERAL PRE ARRANGEMENT COUNSELOR.[email or web address] respirations Mental status Awake,Calm 07/18/24 13:06 FUNERAL PRE ARRANGEMENT COUNSELOR.[email or web address] nausea No 07/18/24 13:06 FUNERAL PRE ARRANGEMENT COUNSELOR.[email or web address] Vomiting No 07/18/24 13:06 FUNERAL PRE ARRANGEMENT COUNSELORKIP Anesthesia Postop Eval I: Fluid Summary Crystalloid volume administer 2,000 07/18/24 13:06 FUNERAL PRE ARRANGEMENT COUNSELOR.[email or web address] (ml) Colloids volume administered ( ml) Blood Product volume administered (ml) Total IV fluid infused 2,000 07/18/24 13:06 FUNERAL PRE ARRANGEMENT COUNSELOR.[email or web address] Anesthesia Postop Eval I: Summary Notes Anesthesia Complication No 07/18/24 13:06 FUNERAL PRE ARRANGEMENT COUNSELORKIP Anesthesia Complication Comment: Post-operative progress note Anesthesia: Postop Eval II Evaluation Mental status: Awake and Calm Pain Level: 4 nausea: No Vomiting: No Complications Anesthesia Complication: No
--- NOTE | 2024-07-18 16:04 | PCM.POSTANE2 ---
Anesthesia Postop Eval I Sum Postop Eval Completion status Anesthesia document: Postop Eval 1 completed: Yes Anesthesia Postop Eval I Summary Anesthesia Postop Eval I Summary: Anesthesia Postop Eval I: Assessment Summary Airway patent Yes 07/18/24 13:06 ELEVATOR CONDUCTOR.[email or web address] Spontaneous unlabored Yes 07/18/24 13:06 ELEVATOR CONDUCTOR.[email or web address] respirations Mental status Awake,Calm 07/18/24 13:06 ELEVATOR CONDUCTOR.[email or web address] nausea No 07/18/24 13:06 ELEVATOR CONDUCTOR.PRITI Vomiting No 07/18/24 13:06 ELEVATOR CONDUCTORKIP Anesthesia Postop Eval I: Fluid Summary Crystalloid volume administer 2,000 07/18/24 13:06 ELEVATOR CONDUCTOR.[email or web address] (ml) Colloids volume administered ( ml) Blood Product volume administered (ml) Total IV fluid infused 2,000 07/18/24 13:06 ELEVATOR CONDUCTOR.PRITI Anesthesia Postop Eval I: Summary Notes Anesthesia Complication No 07/18/24 13:06 ELEVATOR CONDUCTORKIP Anesthesia Complication Comment: Post-operative progress note Anesthesia: Postop Eval II Evaluation Mental status: Awake and Calm Pain Level: 4 nausea: No Vomiting: No Complications Anesthesia Complication: No
--- NOTE | 2024-07-18 16:48 | PCM.PN.HOSP ---
Subjective Subjective 74-year-old female history of restless leg syndrome, diabetes, GERD, A-fib, CAD status post CABG, PVD, renal cell carcinoma status post partial nephrectomy who presented to [facility] 07/18/2024 due to lumbar stenosis with neurogenic claudication and underwent lumbar fusion with Dr. Jones. Hospitalist consulted for postop medical management. Patient evaluated at bedside postoperatively. Reports she is having pain currently but denies any other new or acute physical complaints including no shortness of breath, cough, chest pain. Objective Data Objective Data Vital Signs: Vital Signs Temp Pulse Resp BP Pulse Ox O2 Del Method O2 Flow Rate 98.2 F 78 18 152/68 H 95 Nasal Cannula 2 07/18/24 15:34 07/18/24 15:34 07/18/24 15:34 07/18/24 15:34 07/18/24 15:34 07/18/24 15:34 07/18/24 15:34 Oxygen Flow Rate (L/min) 2 Oxygen Delivery Method Nasal Cannula Weight: 84.368 kg Body Mass Index (BMI) 28.3 Intake & Output: Intake and Output for Last 24 Hours 07/16/24 07/17/24 07/18/24 23:59 23:59 23:59 Intake Total 2362.75 / 2362.75 Output Total 350 / 350 Balance 2011.75 / 2011.75 Lab / Micro Data Labs: Laboratory Results - last 24 hr 07/18/24 05:48: POC Glucose 136 H 07/18/24 06:20: Blood Type A POSITIVE, Antibody Screen NEGATIVE 07/18/24 13:54: POC Glucose 248 H Radiography Diagnostic Testing: Radiology Impression Lumbar Spine X-Ray 07/18/24 06:30 IMPRESSION: Intraoperative imaging provided for fusion and disc placement at the L3-L4 and L4-L5 levels as well as vertebroplasty. Electronically Signed: Ramiro Valentin MD at 14:13 EDT , Physical Exam Narrative General: Alert,no apparent distress HEENT: Atraumatic, normocephalic Eyes: Anicteric, normal conjunctiva, extraocular movements grossly intact Neck: Supple Respiratory: Clear to auscultation bilaterally, normal respiratory effort Cardiovascular: Regular rate GI: Soft, nontender, nondistended Extremities: No edema Musculoskeletal: Moving all extremities Neuro: No overt focal neurological deficits Skin: No rashes appreciated Psych: Cooperative Assessment & Plan Assessment/Plan (1) Type II diabetes mellitus: (2) Paroxysmal atrial fibrillation: (3) H/O coronary artery bypass surgery: PLAN: Plan # Paroxysmal atrial fibrillation -Previously failed DCCV and had ablation in 2016 -Continue metoprolol -Continue Xarelto when cleared to do so by primary team #Type 2 diabetes mellitus -Glucose checks and sliding scale insulin -Will decrease home long-acting insulin until patient is having consistent and adequate p.o. intake # History of PVD -Follows with vascular, does have history of left ELINA stenting by Dr. Lopez in 2013 -Continue statin, continue Xarelto when cleared to do so by primary -Patient is unsure if she is supposed to be taking aspirin at home, this will ultimately need clarified but pt unclear and it's not presently on med list #Hx CAD s/p CABG -CABG x 2 FAIR-LAD, SVG-RPDA 01/29/2003 -Continue statin and beta-abner -Patient is unsure if she is supposed to be taking aspirin at home, this will ultimately need clarified but pt unclear and it's not presently on med list #GERD -Continue PPI -Patient also sucralfate as needed # History of renal cell carcinoma status post partial nephrectomy -Noted -Most recent creatinine 06/02 was 1.09, repeat labs in a.m. # History of restless leg syndrome -On ropinirole #Hx depression -Continue zoloft and BuSpar #L3-5 disc degeneration, L3-4 disc herniation, L4-5 facet stenosis, stenosis with neurogenic claudication -Status post lumbar fusion with Dr. Jones 07/18/2024 -PT/OT -Management per primary #DVT ppx: Timing per primary discretion Cassidy Chen MD Time spent in the patient's overall evaluation,decision-making process, review of diagnostic data, adjustment of management, discussion with other providers, nursing nursing and ancillary staff involved in patient's care documentation, 31 minutes Charges/Coding Visit Charges Office Visits / Consults: 38458 OV L4 Est 30min
[2024-07-18] MEDS: Ondansetron 4 MG/2 ML Vial IV (17:28)
[2024-07-18] MEDS: 0.9% Saline Lock 10 ML Syringe IV (17:28)
[2024-07-18] MEDS: Methocarbamol 500 MG Tablet 1000 MG PO ×2 (17:36→22:40)
[2024-07-18] MEDS: oxyCODONE 5 MG Tablet PO ×2 (17:36→22:43)
[2024-07-18] MEDS: proMETHazine 25 MG Tablet 12.5 MG PO (18:57)
[2024-07-18] MEDS: Pantoprazole Sodium 40 MG Tablet PO (20:25)
[2024-07-18] MEDS: Senna/Docusate Sodium 1 Tablet 2 TABLET PO (20:26)
[2024-07-18] MEDS: Pramipexole Di-HCl 0.5 MG Tablet 1.5 MG PO (20:26)
[2024-07-18] MEDS: Atorvastatin Calcium 80 MG Tablet PO (20:27)
[2024-07-18] MEDS: Insulin Human 75/25 Kwickpen 15 UNIT SC (20:39)
[2024-07-18 22:04] LABS: Bedside Glucose 263 mg/dL (74-106)
[2024-07-18] MEDS: Gabapentin 300 MG Capsule PO (22:40)
[2024-07-19] VITALS (8 sets, daily range): BP systolic 102–124; BP diastolic 38–56; PULSE 74–84; RESP 16–18; TEMP 36.5–36.8; O2SAT 93–100
[2024-07-19] MEDS: Morphine 2 MG/ML Syringe IV ×2 (04:34→12:19)
[2024-07-19] MEDS: Acetaminophen 500 MG Tablet 1000 MG PO ×3 (06:34→21:53)
[2024-07-19] MEDS: Gabapentin 300 MG Capsule PO ×3 (06:34→21:58)
[2024-07-19] MEDS: Pramipexole Di-HCl 0.5 MG Tablet 1.5 MG PO ×3 (06:34→21:55)
[2024-07-19 07:27] LABS: Anion Gap 5 (5-15); BUN 26 mg/dL (7-18); BUN/Creat Ratio 21.8 RATIO (10-20); Calcium,Total 8.3 mg/dL (8.5-10.1); Chloride 109 mmol/L (98-107); Creatinine, Serum 1.19 mg/dL (0.55-1.02); EST Glomerular Filtration Rate 47 mL/min (>60); Est Glom Filt Rate - Afr Amer 57 mL/min (>60); Estimated Creatinine Clearance 48.63 ml/min; Glucose 157 mg/dL (74-106); Potassium 4.9 mmol/L (3.5-5.1); Sodium Level 137 mmol/L (136-145)
[2024-07-19 08:05] LABS: Bedside Glucose 142 mg/dL (74-106)
[2024-07-19 08:47] LABS: Hematocrit 26.6 % (37-47); Hemoglobin 8.1 g/dL (12.0-15.0); Mean Corp Hgb Conc 30.5 g/dL (32-36); Mean Corpuscular Hgb 29.3 pg (27.0-32.0); Mean Corpuscular Volume 96.4 fL (81-99); Mean Platelet Vol. 9.5 fl (6.2-12.0); Platelet Count 188 K/mm3 (150-450); RBC Distribution Width CV 14.3 % (11.6-14.6); RBC Distribution Width SD 50.4 fl (35.1-43.9); Red Blood Count 2.76 M/mm3 (4.2-5.4); White Blood Count 8.1 K/mm3 (4.4-11.0)
[2024-07-19] MEDS: Insulin Human 75/25 Kwickpen 15 UNIT SC ×2 (08:58→21:50)
[2024-07-19] MEDS: Sertraline 100 MG Tablet PO (08:58)
[2024-07-19] MEDS: Pantoprazole Sodium 40 MG Tablet PO ×2 (08:58→21:55)
[2024-07-19] MEDS: Bisacodyl 5 MG Tablet 10 MG PO ×2 (08:58→17:18)
[2024-07-19] MEDS: busPIRone 5 MG Tablet 10 MG PO (08:58)
[2024-07-19] MEDS: Methocarbamol 500 MG Tablet 1000 MG PO ×4 (08:58→21:53)
--- NOTE | 2024-07-19 10:15 | CASEMGMT ---
RN KRISTIAN [employer]ITION[employer] BANKER CM?to room to meet with patient for initial transition planning/care coordination assessment. RN CM?introduced self and role at [facility]. Pt voices understanding and consents to assessment?at this time. Pt sitting up in chair in no distress at this time. Therapy just finished working w/her. Pt is A/O at this time and answers all questions appropriately. Care providers, pharmacy, and demographics verified/updated at this time. Strata:?2 PCP: Dr Banegas Specialists: Dr Aceves, Dr Kwon-MONISHA, Dr De La Fuente, [facility] in [facility] (pt does not remember name), vascular surgeon. [facility]erred Pharmacy: [facility] Insurance: MMO MCR Prescription Benefit: bart Living Will/HPOA:Pt does not currently have LW/HCPOA and declines info at this time. Pt made aware that she can contact as an out-pt and make appt in the future if she decides she would like to talk with someone about this or would like to utilize [facility] social work for advanced directive completion. LNOK: Daughter, Ollie. Son, Dustin. DILJenny Living Arrangements: Lives alone in one-story home w/1 threshold step to enter. Indep w/ADL's and IADL's prior to surgery. Transportation: self, daughter, neighbors DME: [facility] has the following DME: shower chair, cane, rollator, W/C, walker, and Apple Watch. Pt has a glucometer, but [facility] may need a new batter, she is not sure. She just got it through her insurance about a year ago. She states she got a new Rx for a new glucometer from her PCP, but [facility], [facility] did not follow through. Made aware insurance most likely will not cover another glucometer this soon. Made aware of OTC options for a new glucometer and cost. HHC/SNF: [facility] and states she does not want to go back there. Pt states she would like to go somewhere for therapy short-term after discharging from [facility]. Her 1st choice is [facility] TCU and she denies wanting list of other SNF options unless TCU unable to accept her. MS3 Meagan NOGUEIRA, made aware. PLAN: SNF Altagracia CONTRERAS RN, CM
[2024-07-19] MEDS: oxyCODONE 5 MG Tablet PO ×2 (10:37→20:19)
[2024-07-19] MEDS: Senna/Docusate Sodium 1 Tablet 2 TABLET PO ×2 (10:37→21:53)
--- NOTE | 2024-07-19 11:58 | CASEMGMT ---
Addendum entered by Meagan Pollack 07/19/24 12:02: TCU accepted. Pt advised. POOJA Estrella Original Note: Socisal Work- Pt declined list of SNF providers; reporting FOC is TCU/. SW completed referral. POOJA Estrella
[2024-07-19 12:00] LABS: Hemoglobin 9.1 g/dL (12.0-15.0)
[2024-07-19 12:11] LABS: Bedside Glucose 111 mg/dL (74-106)
[2024-07-19] MEDS: 0.9% Saline Lock 10 ML Syringe IV (12:18)
--- NOTE | 2024-07-19 12:34 | RAD_ITS ---
STUDY: X-RAY - LUMBAR SPINE REASON FOR EXAM: Female, 74 years old. s/p lumbar fusion -- upright AP and lat please TECHNIQUE: 2 view(s) of the lumbar spine were obtained. COMPARISON: None FINDINGS: Normal lumbar lordosis. There is no substantial scoliosis. There is a normal alignment of the vertebrae. Arthroplasty with surgical fusion from L3 through L5. Mild spurring at the endplates. Narrowed L3-4 through L5-S1 disc space heights. Diffusely calcified aorta. RAD/Lumbar Spine 2 or 3 Views IMPRESSION: Degenerative and postsurgical changes of the lumbar spine. Electronically Signed: Calvin Tejada DO at 0:00 EDT ,
--- NOTE | 2024-07-19 12:59 | PN.ORTHO_ITS ---
Subjective Subjective Postop day 1 status post L3-5 fusion. Patient comfortable sitting up in bed. Walked short distance with PT. No flatus yet. Objective Data Objective Data Vital Signs: Vital Signs Temp Pulse Resp BP Pulse Ox O2 Del Method O2 Flow Rate 98.2 F 79 18 104/47 L 97 Room Air 2 07/19/24 12:15 07/19/24 12:15 07/19/24 12:15 07/19/24 12:15 07/19/24 12:15 07/19/24 12:15 07/19/24 03:34 Oxygen Flow Rate (L/min) 2 Oxygen Delivery Method Room Air Weight: 186 lb Body Mass Index (BMI) 28.3 Intake & Output: Intake and Output for Last 24 Hours 07/17/24 07/18/24 07/19/24 23:59 23:59 23:59 Intake Total 3082.75 / 3082.75 300 / 300 Output Total 350 / 350 Balance 2732.75 / 2732.75 300 / 300 Lab / Micro Data 07/19/24 11:49 07/19/24 06:22 Labs: Laboratory Results - last 24 hr 07/18/24 13:54: POC Glucose 248 H 07/18/24 20:37: POC Glucose 263 H 07/19/24 06:22: WBC Cancelled, Corrected WBC Cancelled, RBC Cancelled, Hgb Cancelled, Hct Cancelled, MCV Cancelled, MCH Cancelled, MCHC Cancelled, RDW Std Deviation Cancelled, RDW Coeff of Ray Cancelled, Plt Count Cancelled, MPV Cancelled, Differential Comment Cancelled, Diff Path Review Cancelled, Sodium 137, Potassium 4.9, Chloride 109 H, Carbon Dioxide 23.0, Anion Gap 5, BUN 26 H, Creatinine 1.19 H, Estim Creat Clear Calc 48.63, Est GFR (MDRD) Af Amer 57 L, E st GFR (MDRD) Non-Af 47 L, BUN/Creatinine Ratio 21.8 H, Glucose 157 H, Calcium 8.3 L 07/19/24 06:35: POC Glucose 142 H 07/19/24 08:36: WBC 8.1, RBC 2.76 L, Hgb 8.1 L, Hct 26.6 L, MCV 96.4, MCH 29.3, MCHC 30.5 L, RDW Std Deviation 50.4 H, RDW Coeff of Ray 14.3, Plt Count 188, MPV 9.5 07/19/24 11:27: POC Glucose 111 H 07/19/24 11:49: Hgb 9.1 L, Hct 30.0 L Radiography Diagnostic Testing: Radiology Impression Lumbar Spine X-Ray 07/18/24 06:30 IMPRESSION: Intraoperative imaging provided for fusion and disc placement at the L3-L4 and L4-L5 levels as well as vertebroplasty. Electronically Signed: Ramiro Valentin MD at 14:13 EDT , Physical Exam Narrative Dressing?CDI. Neurologic evaluation of lower extremity shows 5 x 5 power normal shows normal sensations in all dermatomes. Assessment & Plan Assessment/Plan (1) Status post lumbar spinal fusion: PLAN: Plan Postop day 1 status post L3-5 fusion. PT recommending rehab. X-rays reviewed. No flatus yet. Clear liquid diet until passes flatus, and then advance to solid food. Okay to discharge to rehab once she passes flatus and TCU accepts.
--- NOTE | 2024-07-19 16:00 | PN.HOSP_ITS ---
Subjective Subjective Doing well, no issues overnight Objective Data Objective Data Vital Signs: Vital Signs Temp Pulse Resp BP Pulse Ox O2 Del Method O2 Flow Rate 98.2 F 79 18 104/47 L 97 Room Air 2 07/19/24 12:15 07/19/24 12:15 07/19/24 12:15 07/19/24 12:15 07/19/24 12:15 07/19/24 12:15 07/19/24 03:34 Oxygen Flow Rate (L/min) 2 Oxygen Delivery Method Room Air Weight: 185 lb 15.993 oz Body Mass Index (BMI) 28.3 Intake & Output: Intake and Output for Last 24 Hours 07/18/24 07/19/24 07/20/24 03:59 03:59 03:59 Intake Total 3082.75 / 3082.75 300 / 300 Output Total 350 / 350 Balance 2732.75 / 2732.75 300 / 300 Lab / Micro Data 07/19/24 11:49 07/19/24 06:22 Labs: Laboratory Results - last 24 hr 07/18/24 20:37: POC Glucose 263 H 07/19/24 06:22: WBC Cancelled, Corrected WBC Cancelled, RBC Cancelled, Hgb Cancelled, Hct Cancelled, MCV Cancelled, MCH Cancelled, MCHC Cancelled, RDW Std Deviation Cancelled, RDW Coeff of Ray Cancelled, Plt Count Cancelled, MPV Cancelled, Differential Comment Cancelled, Diff Path Review Cancelled, Sodium 137, Potassium 4.9, Chloride 109 H, Carbon Dioxide 23.0, Anion Gap 5, BUN 26 H, Creatinine 1.19 H, Estim Creat Clear Calc 48.63, Est GFR (MDRD) Af Amer 57 L, E st GFR (MDRD) Non-Af 47 L, BUN/Creatinine Ratio 21.8 H, Glucose 157 H, Calcium 8.3 L 07/19/24 06:35: POC Glucose 142 H 07/19/24 08:36: WBC 8.1, RBC 2.76 L, Hgb 8.1 L, Hct 26.6 L, MCV 96.4, MCH 29.3, MCHC 30.5 L, RDW Std Deviation 50.4 H, RDW Coeff of Ray 14.3, Plt Count 188, MPV 9.5 08/28/24 11:27: POC Glucose 111 H 07/19/24 11:49: Hgb 9.1 L, Hct 30.0 L Physical Exam Narrative General: Alert, Oriented x3, Cooperative, No apparent distress HEENT: Atraumatic, PERRLA, EOMI, Normocephalic Oral: Moist Mucosa Neck: Supple, No JVD Lungs: Diminished, Normal air movement, No rhonchi, No wheeze, No rales Cardiovascular: Regular rate, Regular Rhythm, Normal S1, Normal S2, No murmurs Abdomen: Soft, Non Tender, Non-Distended, No Hepato-splenomegaly Extremities: No edema, Capillary Refill Less than 3 Seconds Skin: No rashes, No breakdown Musculoskeletal: No Tenderness to Palpation of Joints or Extremities Neurological: No focal neurological deficits, Motor Exam 5/5 strength throughout, Sensory exam intact to light touch and pain Psych/Mental Status: Normal Affect, Appropriate Assessment & Plan Assessment/Plan (1) Type II diabetes mellitus: (2) Paroxysmal atrial fibrillation: (3) H/O coronary artery bypass surgery: PLAN: Plan 1. L3-5 disc degeneration and herniation status post lumbar fusion on 07/18/2024 ? PT/OT ? Pain management per primary ? Hemoglobin was a little bit low at 8.1 this morning's it was rechecked and climbed to 9.1. ? From a medical standpoint she is okay for discharge with outpatient follow-up and repeat blood work in a week 2. A-fib/CAD status post CABG/peripheral vascular disease/essential HTN/HLD ? Can restart Xarelto when okay with surgery ? Continue with her home blood pressure medications ? Will monitor make adjustments as necessary ? Continue with statin 3. DM2 ? Stable ? Will hold her home medications ? On sliding scale insulin ? Accu-Cheks ACHS 4. GERD ? Stable ? Continue with PPI 5. Depression ? Stable ? Continue with her home medications Charges/Coding Visit Charges Inpatient E&M: 45107 Subs Hosp L2
[2024-07-19 16:16] LABS: Bedside Glucose 123 mg/dL (74-106)
[2024-07-19] MEDS: Ensure Clear 120 ML Liquid PO ×2 (17:18→20:19)
[2024-07-19] MEDS: Atorvastatin Calcium 80 MG Tablet PO (21:54)
[2024-07-19 22:45] LABS: Bedside Glucose 129 mg/dL (74-106)
[2024-07-20 01:29] VITALS: BP 108/57; PULSE 79; RESP 18; TEMP 36.3; O2SAT 95
[2024-07-20] MEDS: oxyCODONE 5 MG Tablet PO ×3 (01:55→13:26)
[2024-07-20 02:18] LABS: Bedside Glucose 99 mg/dL (74-106)
[2024-07-20 05:41] VITALS: BP 114/53; PULSE 79; RESP 16; TEMP 36.5; O2SAT 96
[2024-07-20] MEDS: Acetaminophen 500 MG Tablet 1000 MG PO ×2 (05:50→13:27)
[2024-07-20] MEDS: Gabapentin 300 MG Capsule PO ×2 (05:51→13:26)
[2024-07-20] MEDS: Pramipexole Di-HCl 0.5 MG Tablet 1.5 MG PO ×2 (05:51→13:28)
[2024-07-20 06:25] LABS: Bedside Glucose 70 mg/dL (74-106)
[2024-07-20 08:32] VITALS: O2SAT 99
[2024-07-20 09:16] VITALS: BP 106/64; PULSE 92; RESP 16; TEMP 36.7; O2SAT 97
[2024-07-20] MEDS: Bisacodyl 10 MG Suppository RC (09:31)
[2024-07-20 09:32] VITALS: PULSE 92
[2024-07-20] MEDS: Metoprolol(XL)Succ 100 MG Tablet PO (09:32)
[2024-07-20] MEDS: busPIRone 5 MG Tablet 10 MG PO (09:32)
[2024-07-20] MEDS: Sertraline 100 MG Tablet PO (09:32)
[2024-07-20] MEDS: Insulin Human 75/25 Kwickpen 15 UNIT SC (09:34)
[2024-07-20] MEDS: Pantoprazole Sodium 40 MG Tablet PO (11:46)
[2024-07-20] MEDS: Methocarbamol 500 MG Tablet 1000 MG PO ×2 (11:47→13:27)
[2024-07-20] MEDS: Senna/Docusate Sodium 1 Tablet 2 TABLET PO (11:47)
[2024-07-20] MEDS: Ensure Clear 120 ML Liquid PO (11:55)
[2024-07-20 12:08] LABS: Bedside Glucose 78 mg/dL (74-106)
--- NOTE | 2024-07-20 12:55 | PCM.TXEXTCAR ---
Diet Diet Order/Speech Therapy: 07/20/24 11:18 Diet: Carbohydrate Controlled Routine Orders/Code Status Code Status: Full Code Wound(s) LEFT LATERAL HIP/ABDOMEN: Wound Type: Surgical Incision BACK, MID-LOW B/L: Wound Type: Surgical Incision Therapies Weight Bearing: Full weight bearing Physical Therapy: Eval and Treat Occupational Therapy: Eval and Treat Problem/Diagnosis (1) Type II diabetes mellitus: Status: Acute Code(s): E11.9 - Type 2 diabetes mellitus without complications (2) Paroxysmal atrial fibrillation: Status: Chronic Code(s): I48.0 - Paroxysmal atrial fibrillation Comment: Failed DCCV; failed drug therapy; radiofrequency ablation 2015 (3) H/O coronary artery bypass surgery: Status: Resolved Code(s): Z95.1 - Presence of aortocoronary bypass graft Comment: CABG x 2 FAIR-LAD, SVG-RPDA 01/29/2003 (4) Status post lumbar spinal fusion: Status: Acute Code(s): Z98.1 - Arthrodesis status Allergies/Procedures Done in Hospital Allergies diphenhydramine HCl (From Benadryl) Adverse Reaction (Verified 07/18/24 05:53) restless legs dofetilide Adverse Reaction (Verified 07/18/24 05:53) LONG QT Long QT secondary to chronic hypomagnesemia haloperidol (From Haldol) Adverse Reaction (Verified 07/18/24 05:53) Other restless legs metoclopramide (From Reglan) Adverse Reaction (Verified 07/18/24 05:53) restless legs Type of Care/Length of Stay Estimated LOS: Convalescent Care Less Than 30 days Type of Care Needed: Acute Rehab Rehab Potential: Good Prognosis: Good Additional Orders/Day of Discharge Day of Discharge: 07/20/24 Dietary and Speech Recommendations Dietitian Recommendations/Changes: Recommend cardiac, consistent carb diet, as diet is advanced. Will order 120ml mixed gallego ensure clear 4x daily with medpass. Will provide DM diet education, if pt request. Will monitor weight, as available. Reviewed and approved Clementine Contreras RD, LD. Follow Up Care Please Follow Up With: Corbin Gallego MD When: 2 weeks Discharge Plan Admission Admit Date/Time: 07/18/24 13:03 Primary Reason for Your Visit: s/p lumbar fusion Attending Provider: Corbin Gallego Primary Care Provider: Tae Banegas Consulting Providers: Nitish Vargas Instructions Patient Instructions: Lumbar Fusion Dc Additional Instructions / Restrictions: Keep Tegaderm clean and dry. After 5 days remove Tegaderm and gauze then cover with a bandaid. Change bandaid daily thereafter. Showering is OK, no submerging the incisions. No bending, lifting, or twisting. Follow up in 2 weeks in the office. Discharge Orders/Prescriptions Prescriptions: New acetaminophen 500 mg Tablet 500 mg PO Q6H Qty: 30 0RF methocarbamol 500 mg Tablet 750 mg PO 4X/DAY PRN (Reason: spasms/pain) Qty: 30 0RF oxycodone 5 mg Tablet 2.5 - 5 mg PO Q6H PRN (Reason: pain) 7 Days Qty: 28 0RF sennosides-docusate sodium [Stimulant Laxative Plus] 8.6-50 mg Tablet 2 tab PO BID PRN (Reason: constipation) Qty: 30 0RF Continued buspirone 10 mg tablet 10 mg PO DAILY gabapentin 300 mg capsule 300 mg PO TID pantoprazole 40 mg tablet,delayed release (DR/EC) 40 mg PO BID sucralfate 1 gram tablet 1 g PO 4X/DAY PRN (Reason: gerd) metoprolol succinate 100 mg tablet extended release 24 hr 100 mg PO DAILY ropinirole 5 mg tablet 5 mg PO TID insulin NPH and regular human 100 UNIT/ML suspension 22 unit SQ BID atorvastatin 80 MG tablet 80 mg PO DAILY ondansetron HCl 8 MG tablet 8 mg PO Q8H PRN PRN (Reason: Nausea/Vomiting) Qty: 15 0RF sertraline 100 mg tablet 100 mg PO DAILY esomeprazole magnesium 40 mg capsule,delayed release(DR/EC) 40 mg PO DAILY Patient Comments: TAKE 1 CAPSULE BY MOUTH EVERY DAY 30 MINUTES BEFORE MEAL Held Xarelto 20 mg tablet 20 mg PO DAILY Hold Instructions: Resume on 07/21/24. Referrals / Follow Up: Tae Banegas DO [Primary Care Provider] - Disposition Disposition (needs filled in before D/C Order can be placed): Senior Living Facility
--- NOTE | 2024-07-20 13:13 | CASEMGMT ---
Social Work Precert has been obtained and physician aware. Per physician, pt is ready for discharge today. Tram in TCU notified and discharge orders faxed. SW met with pt and notified of dc to TCU today. Pt is agreeable and requested dgt be notified. VM left with pt dgt Ollie. Disposition: TCU, skilled level of care POOJA Ulloa
--- NOTE | 2024-07-20 14:15 | PCM.PN.ORT ---
Subjective Subjective Seen with Dr. Jones. Patient is ready for discharge to TCU. She has been cleared by PT and has tolerated a solid meal. Objective Data Objective Data Vital Signs: Vital Signs Temp Pulse Resp BP Pulse Ox O2 Del Method O2 Flow Rate 98.0 F 92 16 106/64 97 Room Air 1.5 07/20/24 09:16 07/20/24 09:32 07/20/24 09:16 07/20/24 09:16 07/20/24 09:16 07/20/24 09:16 07/20/24 08:32 Oxygen Flow Rate (L/min) 1.5 Oxygen Delivery Method Room Air Weight: 185 lb 15.993 oz Body Mass Index (BMI) 28.3 Intake & Output: Intake and Output for Last 24 Hours 07/18/24 07/19/24 07/20/24 23:59 23:59 23:59 Intake Total 3082.75 / 3082.75 700 / 700 300 / 300 Output Total 350 / 350 Balance 2732.75 / 2732.75 700 / 700 300 / 300 Lab / Micro Data 07/19/24 11:49 07/19/24 06:22 Labs: Laboratory Results - last 24 hr 07/19/24 15:53: POC Glucose 123 H 07/19/24 21:49: POC Glucose 129 H 07/20/24 01:54: POC Glucose 99 07/20/24 05:40: POC Glucose 70 L 07/20/24 11:45: POC Glucose 78 Radiography Diagnostic Testing: Radiology Impression Lumbar Spine X-Ray 07/19/24 12:34 IMPRESSION: Degenerative and postsurgical changes of the lumbar spine. Electronically Signed: Calvin Tejada DO at 0:00 EDT , Physical Exam Narrative Patient was sitting upright in a chair upon arrival. She has good lower extremity strength. Pain has been well managed. Const alert, oriented x3 and no apparent distress Assessment & Plan Assessment/Plan (1) Status post lumbar spinal fusion: PLAN: Plan Patient ready to discharge to TCU before return home as she lives alone. She will follow up in office in 2 weeks. Patient is agreeable. No bending, lifting, or twisting.
== END 2024-07-20 13:45 | disposition skilled nursing facility (03) | DRG 455 ==
PROVIDERS: Family Medicine; Student in an Organized Health Care Education/Training Program; Admitting Provider Orthopaedic Surgery Orthopaedic Surgery of the Spine; PCP Student in an Organized Health Care Education/Training Program; Referring Provider Orthopaedic Surgery Orthopaedic Surgery of the Spine; Visit Provider Orthopaedic Surgery Orthopaedic Surgery of the Spine
PROC: 0SG10A0 Fusion of 2 or more Lumbar Vertebral Joints with Interbody Fusion Device, Anterior Approach, Anterior Column, Open Approach (ICD-10-PCS; principal; 2024-07-18 07:00)
DX: M51.26 Other intervertebral disc displacement, lumbar region (principal); E10.42 Type 1 diabetes mellitus with diabetic polyneuropathy; E10.51 Type 1 diabetes mellitus with diabetic peripheral angiopathy without gangrene; E10.22 Type 1 diabetes mellitus with diabetic chronic kidney disease; G25.81 Restless legs syndrome; I48.0 Paroxysmal atrial fibrillation; E78.5 Hyperlipidemia, unspecified; J44.9 Chronic obstructive pulmonary disease, unspecified; N18.30 Chronic kidney disease, stage 3 unspecified; I12.9 Hypertensive chronic kidney disease with stage 1 through stage 4 chronic kidney disease, or unspecified chronic kidney disease; F32.A Depression, unspecified; M48.062 Spinal stenosis, lumbar region with neurogenic claudication; M48.07 Spinal stenosis, lumbosacral region; K21.9 Gastro-esophageal reflux disease without esophagitis; M51.16 Intervertebral disc disorders with radiculopathy, lumbar region; M51.17 Intervertebral disc disorders with radiculopathy, lumbosacral region; I25.10 Atherosclerotic heart disease of native coronary artery without angina pectoris; M71.38 Other bursal cyst, other site; Z79.4 Long term (current) use of insulin; Z87.891 Personal history of nicotine dependence; Z79.899 Other long term (current) drug therapy; Z95.1 Presence of aortocoronary bypass graft
CPT/HCPCS: 36415; 72100; 76000; 80048; 82962; 85014; 85018; 85027; 86850; 86900; 86901; 94668; 97162; 97166; 97530; 97802; C1713; J7120; A4216; J2405

== ENCOUNTER 2024-07-20 13:54 | Inpatient (IN) | payer MEDICARE, SELFPAY ==
[2024-07-20 14:17] VITALS: BP 97/55; PULSE 73; RESP 16; TEMP 36.3; O2SAT 96
[2024-07-20 14:38] VITALS: BMI 28.0
--- NOTE | 2024-07-20 14:55 | PCM.OPRPT ---
Report of Operation Date of Procedure: 07/18/24 Pre-Operative Diagnosis: L3-5 disc degeneration, L3-4 disc herniation, L4-5 facet synovial cyst, stenosis with neurogenic claudication Post-Operative Diagnosis: Same Surgery/Procedure Performed:: L3-5 oblique lumbar interbody fusion (OLIF), minimally invasive left sided approach, lateral decubitus: ? L3-4 anterolateral spinal fusion 31161 ? L4-5 anterolateral fusion 74346/51 ? L3-4 insertion of cage 92138 ? L4-5 insertion of cage 22056/51 ? Bone graft aspirate left iliac crest separate incision ? Allograft cancellous chips Surgeon: Co Surgeons Dr. Jones, Dr. Capps Description of Procedure: HPI: Patient is a 74-year-old female with neurogenic claudication and multilevel lumbar disc disease assessed by Dr. Jones can be appropriate for oblique lumbar interbody fusion of L3-L4 L4-L5. Vascular surgery was requested to assist in exposure with mobilization as needed of the abdominal vasculature. Description of procedure: Upon obtaining form consent and verification correct patient procedure site patient taken to the operating where she was placed under general anesthesia. She was then positioned prepped and draped in usual sterile fashion timeout was performed. Oblique incision was made in the left lateral position superior to the iliac crest. Bovie electrocautery was dissect down through subcutaneous tissue to level the fascia. Subcutaneous traction put in position and the fascia was incised. The musculature of the abdominal wall was then split parallel to the fibers through each of the levels individually. Once the retroperitoneum was entered and blunt dissection was utilized to dissect free down to the psoas muscle mobilizing the abdominal contents anteriorly. Self-retaining retractors then put in position and further dissection was carried along the anterior aspect of the psoas muscle exposing the lateral aspect of the vertebral column. The superior aspect of the psoas muscle was then dissected free with bipolar Bovie and retracted laterally until the disc space was identified of L4-L5. This point Dr. Jones performed the discectomy and implant placement which he will describe in further detail. We then turned our attention to the L3-L4 disc space which likewise was identified and the psoas muscle retracted. Again Dr. Jones performed the discectomy and implant placement. Upon completion the retroperitoneum was inspected for hemostasis and the self-retaining retractor removed with abdominal contents allowed to return to the [facility] position. The superior aspect of the incision was then copiously irrigated and the muscle layer was closed with 1 Vicryl running suture. Skin incision was then closed with 3-0 Vicryl for Monocryl. Dry sterile dressing was then applied and the patient was repositioned for further posterior instrumentation described separately by Dr. Jones.
[2024-07-20 15:50] VITALS: RESP 16
[2024-07-20] MEDS: Glucerna Shake 120 ML LIQUID PO (17:35)
[2024-07-20] MEDS: Acetaminophen 500 MG Tablet PO (17:36)
--- NOTE | 2024-07-20 19:24 | PCM.HP.STD ---
HPI - General General Date of Admission: 07/20/24 Date of Service: 07/20/24 Chief Complaint: Here for rehabilitation. HPI Narrative TCAOS ESPINOZA, is a 74 Female who presents with followin07/18/2024 Admit [facility]. 07/18/2024 Dr. Jones performed L3-L5 fusion surgery. Dr. Capps mobilized vasculature. 07/18/2024 Postoperative pain. Restart Xarelto when cleared by Ortho. 07/19/2024 Comfortable, sitting up in bed. Walked short distance with PT. PT recommended SNF. [facility]. 07/20/2024 Pain controlled, ate a meal. 07/20/2024 Admit to TCU with debility, here for rehabilitation, strengthening, prior to discharge home alone. [facility] Medical History (Updated 07/20/24 @ 19:[address] Jordan Buchanan MD) History of stress test Wears glasses Wears dentures Cancer Depression Insulin dependent diabetes mellitus Walker as ambulation aid Arthritis Fatty liver High cholesterol Restless legs History of hiatal hernia Shortness of breath on exertion Former smoker Asthma COPD (chronic obstructive pulmonary disease) Leg cramps History of echocardiogram History of stress test Cardiology follow-up encounter History of atrial fibrillation Fracture of right femur Hyperglycemia due to type 1 diabetes mellitus Acute dehydration Chronic atrial fibrillation with rapid ventricular response Cyclic vomiting syndrome Hypomagnesemia NPDR (nonproliferative diabetic retinopathy) Chronic vomiting Peripheral vascular occlusive disease Anxiety Renal cell carcinoma Atherosclerosis of coronary artery of [place] heart without angina pectoris Essential (primary) hypertension Gastro-esophageal reflux disease without esophagitis Peripheral neuropathy Chronic kidney disease, stage 3 Mild chronic obstructive pulmonary disease Type II diabetes mellitus Home Medications ?Medication ?Instructions ?Recorded ?Last Taken ?Type atorvastatin 80 mg tablet 80 mg PO DAILY cholesterol 07/31/17 07/17/24 History insulin human U-100 NPH-regulr 22 unit SQ BID diabetes 07/31/17 07/17/24 History 70-30 mix 100 unit/mL subcutaneous susp ondansetron HCl 8 mg tablet 8 mg PO Q8H PRN PRN 01/06/21 Unknown Rx Nausea/Vomiting #15 tabs esomeprazole magnesium 40 mg 40 mg PO DAILY gerd 07/07/21 07/17/24 History capsule,delayed release rivaroxaban 20 mg tablet (Xarelto) 20 mg PO DAILY a fib 07/07/21 07/15/24 History sertraline 100 mg tablet 100 mg PO DAILY depression 07/07/21 07/17/24 History buspirone 10 mg tablet 10 mg PO DAILY cyclic vommitting 09/28/23 07/17/24 History gabapentin 300 mg capsule 300 mg PO TID cyclic vomitting 09/28/23 07/17/24 History pantoprazole 40 mg tablet,delayed 40 mg PO BID cyclic vomiting 09/28/23 07/17/24 History release metoprolol succinate 100 mg 100 mg PO DAILY irreg. heart beat 03/24/24 07/17/24 History tablet,extended release 24 hr ropinirole 5 mg tablet 5 mg PO TID restless legs 03/24/24 07/17/24 History sucralfate 1 gram tablet 1 g PO 4X/DAY PRN gerd 03/24/24 Unknown History acetaminophen 500 mg tablet 500 mg PO Q6H pain #30 tabs 07/20/24 Unknown Rx methocarbamol 500 mg tablet 750 mg (1.5 x 500 mg) PO 4X/DAY 07/20/24 Unknown Rx PRN spasms/pain #30 tabs oxycodone 5 mg tablet 2.5 - 5 mg (0.5 - 1 x 5 mg) PO Q6H 07/20/24 Unknown Rx PRN pain 7 days #28 tabs sennosides 8.6 mg-docusate sodium 2 tab PO BID PRN constipation #30 07/20/24 Unknown Rx 50 mg tablet (Stimulant Laxative tabs Plus) Allergy/AdvReac Type Severity Reaction Status Date / Time diphenhydramine HCl (From AdvReac restless Verified 07/18/24 05:53 Benadryl) legs dofetilide AdvReac LONG QT Verified 07/18/24 05:53 haloperidol (From Haldol) AdvReac Other Verified 07/18/24 05:53 metoclopramide (From Reglan) AdvReac restless Verified 07/18/24 05:53 legs Family History Mother Cancer Stomach Father Colon cancer Heart disease Sister Colon cancer Surgical History History of bladder repair surgery History of cardiac catheterization (~11/2023) History of angioplasty of peripheral vessel (07/2013) History of cholecystectomy (08/2019) History of radiofrequency ablation procedure for cardiac arrhythmia (03/19/16) History of cardioversion (2014) History of open reduction and internal fixation (ORIF) procedure H/O laminectomy History of colonoscopy H/O coronary artery bypass surgery (01/29/03) History of hysterectomy (1995) History of esophagogastroduodenoscopy (EGD) (01/2018) History of partial nephrectomy Social History household members: none Smoking Status: Former smoker pack-years: 40 how long ago did patient quit smokin alcohol intake: never substance use type: does not use caffeine: Yes (Occasionally) Type: carbonated beverages ROS Constitutional Constitutional: Denies chills, fever(s) or weight gain ENT HEENT: Denies headache(s), nasal congestion or nasal discharge Cardiovascular Cardiovascular: Denies chest pain or palpitations Respiratory/Chest Respiratory/Chest: Denies cough, excessive phlegm production or shortness of breath with exertion Gastrointestinal Gastrointestinal: Denies abdominal pain, nausea or vomiting Genitourinary Genitourinary: Denies dysuria Musculoskeletal Musculoskeletal: Denies joint pain or joint swelling Integumentary Integumentary: Denies rash or wounds Neurologic Neurologic: Denies focal weakness, numbness or tingling Psychiatric Psychiatric: Denies anxiety, auditory hallucinations, depression, homicidal ideation or suicidal ideation Vital Signs Vital Signs Vital Signs: 07/20/24 14:17 07/20/24 14:55 07/20/24 15:50 Temperature 97.4 F L Temperature Source Temporal Pulse Rate 73 Pulse Rhythm Regular Pulse Strength Normal (2+) Normal (2+) Respiratory Rate 16 16 Respiratory Effort Normal Non-Labored Respiratory Depth Normal Respiratory Pattern Normal Blood Pressure 97/55 L Blood Pressure Mean 69 Blood Pressure Source Monitor Blood Pressure Location Left Arm Pulse Ox 96 Oxygen Delivery Method Nasal Cannula Room Air Oxygen Flow Rate (L/min) 2 Weight Weight: 83.688 kg Body Mass Index (BMI) 28.0 Physical Exam Const alert General Appearance: cooperative HEENT normocephalic Eyes PERRL and EOMs intact bilaterally Neck supple, no JVD and no carotid bruits Resp normal respiratory effort, normal air movement and clear to auscultation bilaterally Cardio regular rate and regular rhythm GI normal to inspection, nondistended, normoactive bowel sounds, non-tender and non-distended Extremity normal capillary refill General Extremity: Negative for edema Skin no rashes or lesions noted General Skin Exam: no breakdown Psych affect normal Appearance: appropriate Assessment & Plan Assessment/Plan (1) Debility: (2) Lumbar disc herniation with radiculopathy: (3) Status post lumbar spinal fusion: (4) Type 2 diabetes mellitus with hyperglycemia: (5) Hyperlipidemia: (6) GERD (gastroesophageal reflux disease): (7) Depression: (8) Anxiety: (9) Neuropathic pain: (10) Restless legs: (11) Atrial fibrillation: PLAN: Plan 74 year old female with below past medical history hospitalized for L3-L5 fusion surgery 07/18/[address] Jones/Dr. Capps, postoperative course uncomplicated, admitted to TCU with debility, here for rehabilitation, strengthening, prior to discharge home alone. Debility - PT/OT. Pain - Tylenol 1000mg q8, Oxycodone 5mg q4 prn pain (1-10). Bowel - Miralax 17gm daily, senna/colace 2 tablets bid. Adult immunization - Administer pneumonia vaccine, covid vaccine, flu vaccine as appropriate. DVT prophylaxis - on Xarelto. Hyperlipidemia - Atorvastatin 80mg qhs. Anxiety - Buspar 10mg daily, stable chronic terminal make up operator use, GDR not recommended. Neuropathic pain - Gabapentin 300mg tid. Nutrition - Glucerna Shake 120ml po bid. Diabetes Mellitus II - Humalog 75/25 22 units bid, monitor blood sugar. Muscle spasm - Robaxin 750mg 4x/day prn. Atrial Fibrillation - Metoprolol succinate 100mg daily, Xarelto 20mg daily. Nausea - Zofran 8mg q8 prn. GERD - Pantoprazole 40mg bid, Sucralfate 1gm qachs prn. Restless Leg syndrome - Mirapex 1.25mg tid. Depression - Sertraline 100mg daily, stable chronic terminal make up operator use, GDR not recommended.
[2024-07-20] MEDS: Acetaminophen 500 MG Tablet 1000 MG PO (20:54)
[2024-07-20] MEDS: Senna/Docusate Sodium 1 Tablet 2 TABLET PO (20:55)
[2024-07-20] MEDS: Pramipexole Di-HCl 0.25 MG Tablet 1.25 MG PO (20:55)
[2024-07-20] MEDS: Atorvastatin Calcium 80 MG Tablet PO (20:56)
[2024-07-20] MEDS: Pantoprazole Sodium 40 MG Tablet PO (20:56)
[2024-07-20] MEDS: Gabapentin 300 MG Capsule PO (21:01)
[2024-07-20] MEDS: 0.9% Saline Lock 10 ML Syringe IV (21:02)
[2024-07-20 21:15] LABS: Bedside Glucose 202 mg/dL (74-106)
[2024-07-20] MEDS: Insulin Human 75/25 Kwickpen 22 UNIT SC (22:55)
[2024-07-21] MEDS: oxyCODONE 5 MG Tablet PO ×4 (03:16→23:50)
[2024-07-21] MEDS: Gabapentin 300 MG Capsule PO ×3 (05:42→23:50)
[2024-07-21] MEDS: Pramipexole Di-HCl 0.25 MG Tablet 1.25 MG PO ×3 (05:43→23:50)
[2024-07-21] MEDS: Acetaminophen 500 MG Tablet 1000 MG PO ×3 (05:44→23:49)
[2024-07-21 05:59] LABS: Absolute Lymphocyte Count 1.14 X10^3/uL (0.83-4.51); Absolute Neutrophil Count 5.9 X10^3/uL (2.0-7.7); Basophil# 0.02 X10^3/uL; Basophil% 0.3 % (0-1); Eosinophil# 0.07 X10^3/uL; Eosinophils% 0.9 % (0-5); Hematocrit 25.3 % (37-47); Hemoglobin 7.7 g/dL (12.0-15.0); Lymphocyte # 1.14 X10^3/ul (0.83-4.51); Lymphocyte % 14.7 % (19-41); Mean Corp Hgb Conc 30.4 g/dL (32-36); Mean Corpuscular Hgb 29.3 pg (27.0-32.0); Mean Corpuscular Volume 96.2 fL (81-99); Mean Platelet Vol. 9.7 fl (6.2-12.0); Monocyte# 0.64 X10^3/uL; Monocyte% 8.2 % (0-10); NRBC Flagged by Analyzer 0 % (0-5); Neutrophil # 5.86 X10^3/uL (2.7-7.7); Neutrophil % 75.5 % (47-70); Platelet Count 156 K/mm3 (150-450); RBC Distribution Width CV 14.1 % (11.6-14.6); RBC Distribution Width SD 49.8 fl (35.1-43.9); Red Blood Count 2.63 M/mm3 (4.2-5.4); White Blood Count 7.8 K/mm3 (4.4-11.0)
[2024-07-21 06:20] LABS: Anion Gap 5 (5-15); BUN 32 mg/dL (7-18); BUN/Creat Ratio 26.7 RATIO (10-20); Calcium,Total 8.4 mg/dL (8.5-10.1); Chloride 106 mmol/L (98-107); EST Glomerular Filtration Rate 47 mL/min (>60); Est Glom Filt Rate - Afr Amer 57 mL/min (>60); Estimated Creatinine Clearance 48.04 ml/min; Glucose 135 mg/dL (74-106); Potassium 4.3 mmol/L (3.5-5.1); Sodium Level 137 mmol/L (136-145)
[2024-07-21 06:57] LABS: Bedside Glucose 134 mg/dL (74-106)
[2024-07-21 07:55] LABS: Iron 11 ug/dL (50-170); Iron Binding Capacity,Total 259 ug/dL (250-450); PERCENT IRON SATURATION 4.2 % (15.0-55.0)
--- NOTE | 2024-07-21 08:18 | NURSING ---
Blood order faxed to infusion center, called and spoke with staff. They are unable to transfuse today, they will discuss with supervisor farm equipment maintenance to see about transfusing over the weekend.
[2024-07-21] MEDS: Glucerna Shake 120 ML LIQUID PO ×2 (08:31→23:57)
[2024-07-21] MEDS: busPIRone 5 MG Tablet 10 MG PO (08:35)
[2024-07-21] MEDS: Senna/Docusate Sodium 1 Tablet 2 TABLET PO ×2 (08:36→23:49)
[2024-07-21] MEDS: Pantoprazole Sodium 40 MG Tablet PO ×2 (08:36→23:50)
[2024-07-21] MEDS: Insulin Human 75/25 Kwickpen 22 UNIT SC ×2 (08:37→23:50)
[2024-07-21] MEDS: Sertraline 100 MG Tablet PO (08:37)
[2024-07-21] MEDS: 0.9% Saline Lock 10 ML Syringe IV ×2 (08:41→23:57)
[2024-07-21] MEDS: Tuberculin,Purif.prot.deriv. 50 TU/ML Vial 0.1 ML ID (08:48)
[2024-07-21 11:37] VITALS: BP 102/42; PULSE 69
[2024-07-21 12:02] VITALS: BP 110/56; PULSE 69
[2024-07-21] MEDS: Metoprolol(XL)Succ 100 MG Tablet PO (12:02)
[2024-07-21 12:04] VITALS: BP 110/56; PULSE 69
--- NOTE | 2024-07-21 14:12 | PCM.PN.DRR ---
TCU RX Drug Regimen Review Subjective/Objective Subjective/Objective: Subjective: 74 YOF admitted to TCU on 07/20/24 from hospitalization at [facility]. While admitted to [facility], patient underwent a L3-L5 fusion as well as a vascular procedure. She is admitted to TCU for strengthening and rehabilitation prior to discharge home where she resides alone. Objective: Allergies diphenhydramine HCl (From Benadryl) Adverse Reaction (Verified 07/18/24 05:53) restless legs dofetilide Adverse Reaction (Verified 07/18/24 05:53) LONG QT Long QT secondary to chronic hypomagnesemia haloperidol (From Haldol) Adverse Reaction (Verified 07/18/24 05:53) Other restless legs metoclopramide (From Reglan) Adverse Reaction (Verified 07/18/24 05:53) restless legs Current Medications Generic Name Dose Route Start Last Admin Trade Name Freq PRN Reason Stop Dose Admin Acetaminophen 1,000 mg 07/20/24 22:00 07/21/24 13:45 Acetaminophen 500 Mg Tablet PO 1,000 mg Q8 MOI Administration Atorvastatin Calcium 80 mg 07/20/24 22:00 07/20/24 20:56 Atorvastatin Calcium 80 Mg Tablet PO 80 mg QHS MOI Administration Buspirone HCl 10 mg 07/21/24 10:00 07/21/24 08:35 Buspirone 5 Mg Tablet PO 10 mg DAILY MOI Administration Gabapentin 300 mg 07/20/24 22:00 07/21/24 13:49 Gabapentin 300 Mg Capsule PO 300 mg TID MOI Administration Insulin Lispro Protam/Lispro Human 22 unit 07/20/24 22:00 07/21/24 08:37 Insulin Human 75/25 [place] SC 22 u BID MOI Administration Methocarbamol 750 mg 07/20/24 14:02 Methocarbamol 750 Mg Tablet PO 4X/DAY PRN spasms/pain Metoprolol Succinate 100 mg 07/21/24 10:00 07/21/24 12:02 Metoprolol(Xl)Succ 100 Mg Tablet PO 100 mg DAILY MOI Administration Protocol Nutritional Formula (Lactose Free) 120 ml 07/21/24 10:00 07/21/24 08:31 Glucerna Shake 120 Ml Liquid PO 120 ml BID MOI Administration Ondansetron HCl 8 mg 07/20/24 14:02 Ondansetron 8 Mg Tablet PO Q8H PRN PRN Nausea/Vomiting Oxycodone HCl 5 mg 07/20/24 19:43 07/21/24 08:48 Oxycodone 5 Mg Tablet PO 5 mg Q4H PRN PRN Administration Pain Score 1-10 or Pre PT/OT Pantoprazole Sodium 40 mg 07/20/24 22:00 07/21/24 08:36 Pantoprazole Sodium 40 Mg Tablet PO 40 mg BID MOI Administration Polyethylene Glycol 17 gm 07/21/24 10:00 07/21/24 08:36 Polyethylene Glycol 3350 17 Gm Packet PO Not Given DAILY MOI Pramipexole Dihydrochloride 1.25 mg 07/20/24 22:00 07/21/24 13:45 Pramipexole Di-Hcl 0.25 Mg Tablet PO 1.25 mg TID MOI Administration Rivaroxaban 20 mg 07/21/24 10:00 Rivaroxaban 20 Mg Tablet PO DAILY MOI Senna/Docusate Sodium 2 tablet 07/20/24 22:00 07/21/24 08:36 Senna/Docusate Sodium 1 Tablet PO 2 tablet BID MOI Administration Sertraline HCl 100 mg 07/21/24 10:00 07/21/24 08:37 Sertraline 100 Mg Tablet PO 100 mg DAILY MOI Administration Sodium Chloride 10 - 40 ml 07/20/24 14:48 07/21/24 08:41 0.9% Saline Lock 10 Ml Syringe IV 10 ml UD PRN Administration SALINE FLUSH Sucralfate 1 gm 07/20/24 16:00 Sucralfate 1 Gm Tablet PO 1HR_ACHS PRN GERD Tuberculin PPD 0.1 ml 07/28/24 10:00 Tuberculin,Purif.Prot.Deriv. 50 Tu/Ml Vial ID 07/28/24 10:01 X1 ONE Problem List Atrial fibrillation (Acute) Restless legs (Acute) Neuropathic pain (Acute) Anxiety (Acute) Depression (Acute) GERD (gastroesophageal reflux disease) (Acute) Hyperlipidemia (Acute) Type 2 diabetes mellitus with hyperglycemia (Acute) Debility (Acute) Status post lumbar spinal fusion (Acute) Lumbar disc herniation with radiculopathy (Acute) Vital Signs Temp Pulse Resp BP Pulse Ox O2 Del Method O2 Flow Rate 97.4 F L 69 16 110/56 L 96 Room Air 2 07/20/24 14:17 07/21/24 12:04 07/20/24 15:50 07/21/24 12:04 07/20/24 14:17 07/20/24 15:50 07/20/24 14:17 Oxygen Flow Rate (L/min) 2 Oxygen Delivery Method Room Air Weight: 83.688 kg Body Mass Index (BMI) 28.0 Sodium 137 mmol/L (136-145) 07/21/24 05:10 Potassium 4.3 mmol/L (3.5-5.1) 07/21/24 05:10 Chloride 106 mmol/L (98-107) 07/21/24 05:10 Carbon Dioxide 26.0 mmol/L (21.0-32.0) 07/21/24 05:10 Anion Gap 5 (5-15) 07/21/24 05:10 BUN 32 mg/dL (7-18) H 07/21/24 05:10 Creatinine 1.20 mg/dL (0.55-1.02) H 07/21/24 05:10 Est GFR (MDRD) Af Amer 57 mL/min (>60) L 07/21/24 05:10 Est GFR (MDRD) Non-Af 47 mL/min (>60) L 07/21/24 05:10 BUN/Creatinine Ratio 26.7 RATIO (10-20) H 07/21/24 05:10 Glucose 135 mg/dL (74-106) H 07/21/24 05:10 Assessment/Plan: 1. Pain: Tylenol 1000mg PO Q8h, Oxycodone 5mg PO Q4h PRN Pain 1-10. Please continue to monitor for increased/decreased S/S pain, PRN medication usage, oversedation/constipation/ decreased respiratory drive with ongoing narcotic use. - the patient has used 2 doses of oxycodone since admission for back pain rated 7/10. 2. Atrial Fibrillation/ HLD: Atorvastatin 80mg PO QHS, Toprol XL 100mg PO Daily, Xarelto 20mg PO Daily. Please continue to monitor BP (last 110/56), pulse (last 69 bpm), S/S bleeding/bruising, H/H (hgb 7.7/ hct 25.3 on 07/21), lipid panel annually (none on file). 3. GERD: Protonix 40mg PO BID, Carafate 1g PO ACHS. Please continue to monitor for stomach upset, gas, headache, medication effectiveness. Please also encourage non-pharmacologic treatments to help minimize GERD exacerbations, thank you. 4. Type II Diabetes: Humalog Mix 75/25 22 unit SC BID. Please continue to monitor blood glucose levels (last 135 on 07/21), A1c (last 6.6% on 06/02/24), S/S hypoglycemia. 5. Muscle spasm: Robaxin 750mg PO 4x/day PRN. Please continue to monitor for drowsiness, dizziness. This is a BEER's criteria medication which can increase the risk of anticholinergic side effects/sedation/ fracture risk in patients older than 65. Please continue to monitor patient for risk v. benefit of use. -To date, the patient has not required any PRN doses of medication thus far. 6. Restless Leg Syndrome: Pramipexole 1.25mg PO TID. Please continue to monitor for medication effectiveness, drowsiness, dizziness, abnormal dreams/ hallucinations. 7. nausea: Zofran 8mg PO Q8h PRN. Please continue to monitor for PRN medication use, headache, medication effectiveness. 8. Neuropathic pain: Gabapentin 300mg PO TID. Please continue to monitor for oversedation, renal function. This is a BEER's criteria medication which acan increase the risk of falls/fractures in patients > 65 years of age. Please continue to monitor closely. 9. Bowel: Miralax 17g PO Daily, Senna/Docusate 2 tab PO BID. Please continue to monitor for increased/decreased constipation and/or diarrhea. - The patient has not had a BM since admission, but it has been <24hrs since admission. Assessment/Plan for indications treated with psychotropic medications: 1. Anxiety/ depression: Buspar 10mg PO daily, Zoloft 100mg PO Daily. Please consider a GDR by 02/2025 if clinically indicated, thank you. Medical chart and medication regimen reviewed. The following medication irregularities or issues were identified: 1. Hyperlipidemia: patient is on Lipitor and does not have a lipid panel on file. Please consider obtaining a lipid panel while on statin therapy if clinically indicated, thank you. 2. The patient is on several sedating medications and medications that can increase the risk of falls/fractures. Please continue to monitor patient closely and weigh the risk v. benefit of use of all agents together, thank you. Date Date of Note:: 07/21/24
[2024-07-21 14:43] VITALS: PULSE 68; RESP 16; O2SAT 96
[2024-07-21 15:43] VITALS: BP 129/56; PULSE 75; RESP 16; TEMP 37.3; O2SAT 96
[2024-07-21 21:29] LABS: Bedside Glucose 203 mg/dL (74-106)
[2024-07-21] MEDS: Atorvastatin Calcium 80 MG Tablet PO (23:50)
--- NOTE | 2024-07-22 03:42 | NURSING ---
Pt complains of r hand aching. No redness or swelling noted. Pt is able to fully move r hand. States it was hurting prior to admission. Will continue to monitor. Pt instructed to call if r hand worsens or changes. Verbalizes understanding.
[2024-07-22] MEDS: Gabapentin 300 MG Capsule PO ×3 (06:06→23:24)
[2024-07-22] MEDS: Acetaminophen 500 MG Tablet 1000 MG PO ×3 (06:06→23:23)
[2024-07-22] MEDS: Pramipexole Di-HCl 0.25 MG Tablet 1.25 MG PO ×3 (06:06→23:24)
[2024-07-22] MEDS: 0.9% Saline Lock 10 ML Syringe IV (06:12)
--- NOTE | 2024-07-22 06:32 | NURSING ---
Pt complaining this am r hand continues to hurt. Noted to be more swollen this am. Will notify Dr. Buchanan to look at. BS 65 this am. Pt asymptomatic. [place] juice 120 mls given.
--- NOTE | 2024-07-22 06:38 | NURSING ---
pt repeat bs 97. pt given maira crackers and peanut butter. refused milk. remains asymptomatic.
[2024-07-22 06:55] LABS: Bedside Glucose 97 mg/dL (74-106)
[2024-07-22] MEDS: Glucerna Shake 120 ML LIQUID PO ×2 (08:36→23:25)
[2024-07-22] MEDS: oxyCODONE 5 MG Tablet PO ×2 (08:36→14:38)
[2024-07-22] MEDS: Senna/Docusate Sodium 1 Tablet 2 TABLET PO ×2 (08:37→23:24)
[2024-07-22] MEDS: Polyethylene Glycol 3350 17 GM PACKET PO (08:37)
[2024-07-22] MEDS: Pantoprazole Sodium 40 MG Tablet PO ×2 (08:37→23:24)
[2024-07-22] MEDS: busPIRone 5 MG Tablet 10 MG PO (08:37)
[2024-07-22] MEDS: Sertraline 100 MG Tablet PO (08:39)
[2024-07-22] MEDS: Insulin Human 75/25 Kwickpen 22 UNIT SC ×2 (08:41→23:25)
[2024-07-22 08:42] VITALS: BP 102/45; PULSE 68
[2024-07-22] MEDS: Metoprolol(XL)Succ 100 MG Tablet PO (08:42)
[2024-07-22 10:57] LABS: Bedside Glucose 65 mg/dL (74-106)
[2024-07-22 13:05] LABS: Bedside Glucose 55 mg/dL (74-106)
[2024-07-22 14:00] LABS: Bedside Glucose 75 mg/dL (74-106)
[2024-07-22 15:18] LABS: Bedside Glucose 104 mg/dL (74-106)
--- NOTE | 2024-07-22 17:16 | NURSING ---
Return from blood transfusion. Tolerated well. HH recheck in 24hrs.
--- NOTE | 2024-07-22 18:57 | NURSING ---
MS3 reported episode of hypoglycemia down to 50s while receiving blood. Received snacks until BS WNL. No C/O of hypoglycemic symptoms upon return and was receiving dinner soon after return to TCU.
[2024-07-22 21:43] LABS: Bedside Glucose 224 mg/dL (74-106)
[2024-07-22] MEDS: Atorvastatin Calcium 80 MG Tablet PO (23:24)
[2024-07-22] MEDS: MethylPREDNISolone DosePak 4 MG BOX PO (23:24)
[2024-07-23] MEDS: oxyCODONE 5 MG Tablet PO ×4 (02:43→22:29)
[2024-07-23 06:20] LABS: Bedside Glucose 161 mg/dL (74-106)
[2024-07-23] MEDS: Pramipexole Di-HCl 0.25 MG Tablet 1.25 MG PO ×3 (06:44→22:26)
[2024-07-23] MEDS: Gabapentin 300 MG Capsule PO ×3 (06:44→22:25)
[2024-07-23] MEDS: Acetaminophen 500 MG Tablet 1000 MG PO ×3 (06:45→22:26)
[2024-07-23 08:35] VITALS: BP 122/55; PULSE 68; RESP 17; TEMP 36.7; O2SAT 95
[2024-07-23] MEDS: MethylPREDNISolone DosePak 4 MG BOX PO ×4 (08:37→22:27)
[2024-07-23] MEDS: busPIRone 5 MG Tablet 10 MG PO (08:38)
[2024-07-23] MEDS: Insulin Human 75/25 Kwickpen 22 UNIT SC ×2 (08:38→22:31)
[2024-07-23] MEDS: Pantoprazole Sodium 40 MG Tablet PO ×2 (08:39→22:28)
[2024-07-23] MEDS: Polyethylene Glycol 3350 17 GM PACKET PO (08:39)
[2024-07-23 08:40] VITALS: PULSE 68
[2024-07-23] MEDS: Metoprolol(XL)Succ 100 MG Tablet PO (08:40)
[2024-07-23] MEDS: Senna/Docusate Sodium 1 Tablet 2 TABLET PO ×2 (08:40→22:29)
[2024-07-23] MEDS: Sertraline 100 MG Tablet PO (08:41)
[2024-07-23 17:12] LABS: Hematocrit 29.5 % (37-47); Hemoglobin 9.7 g/dL (12.0-15.0)
[2024-07-23] MEDS: Methocarbamol 750 MG Tablet PO (17:56)
[2024-07-23] MEDS: 0.9% Saline Lock 10 ML Syringe IV (18:40)
[2024-07-23 21:33] LABS: Bedside Glucose 304 mg/dL (74-106)
[2024-07-23] MEDS: Glucerna Shake 120 ML LIQUID PO (22:25)
[2024-07-23] MEDS: Atorvastatin Calcium 80 MG Tablet PO (22:27)
[2024-07-24] MEDS: Pramipexole Di-HCl 0.25 MG Tablet 1.25 MG PO ×3 (06:42→21:39)
[2024-07-24] MEDS: Gabapentin 300 MG Capsule PO ×3 (06:43→21:40)
[2024-07-24] MEDS: Acetaminophen 500 MG Tablet 1000 MG PO ×3 (06:43→21:38)
[2024-07-24] MEDS: oxyCODONE 5 MG Tablet PO ×3 (06:44→21:43)
[2024-07-24 07:15] LABS: Bedside Glucose 237 mg/dL (74-106)
[2024-07-24] MEDS: MethylPREDNISolone DosePak 4 MG BOX PO ×4 (08:20→21:38)
[2024-07-24] MEDS: busPIRone 5 MG Tablet 10 MG PO (08:21)
[2024-07-24 08:22] VITALS: BP 144/67; PULSE 58
[2024-07-24] MEDS: Polyethylene Glycol 3350 17 GM PACKET PO (08:22)
[2024-07-24] MEDS: Pantoprazole Sodium 40 MG Tablet PO ×2 (08:22→21:40)
[2024-07-24] MEDS: Senna/Docusate Sodium 1 Tablet 2 TABLET PO ×2 (08:22→21:41)
[2024-07-24] MEDS: Metoprolol(XL)Succ 100 MG Tablet PO (08:22)
[2024-07-24] MEDS: Sertraline 100 MG Tablet PO (08:23)
[2024-07-24] MEDS: Insulin Human 75/25 Kwickpen 22 UNIT SC ×2 (08:30→21:41)
[2024-07-24 08:33] VITALS: BP 144/67; PULSE 58; O2SAT 95
[2024-07-24 15:34] VITALS: BP 122/51; PULSE 65; RESP 16; TEMP 36.6; O2SAT 97
[2024-07-24] MEDS: Glucerna Shake 120 ML LIQUID PO (21:38)
[2024-07-24] MEDS: Atorvastatin Calcium 80 MG Tablet PO (21:41)
[2024-07-24] MEDS: Methocarbamol 750 MG Tablet PO (21:43)
[2024-07-24 21:56] LABS: Bedside Glucose 267 mg/dL (74-106)
[2024-07-25] MEDS: Pramipexole Di-HCl 0.25 MG Tablet 1.25 MG PO ×3 (05:58→21:45)
[2024-07-25] MEDS: Acetaminophen 500 MG Tablet 1000 MG PO ×3 (05:59→21:45)
[2024-07-25] MEDS: oxyCODONE 5 MG Tablet PO ×3 (06:00→21:45)
[2024-07-25] MEDS: Gabapentin 300 MG Capsule PO ×3 (06:00→21:45)
[2024-07-25 06:47] LABS: Bedside Glucose 169 mg/dL (74-106)
[2024-07-25] MEDS: busPIRone 5 MG Tablet 10 MG PO (08:04)
[2024-07-25] MEDS: MethylPREDNISolone DosePak 4 MG BOX PO ×3 (08:04→21:46)
[2024-07-25] MEDS: Insulin Human 75/25 Kwickpen 22 UNIT SC ×2 (08:04→21:47)
[2024-07-25] MEDS: Polyethylene Glycol 3350 17 GM PACKET PO (08:05)
[2024-07-25] MEDS: Pantoprazole Sodium 40 MG Tablet PO ×2 (08:05→21:47)
[2024-07-25] MEDS: Sertraline 100 MG Tablet PO (08:06)
[2024-07-25 08:08] VITALS: BP 145/73; PULSE 77
[2024-07-25] MEDS: Metoprolol(XL)Succ 100 MG Tablet PO (08:08)
[2024-07-25 10:10] VITALS: BMI 29.3
--- NOTE | 2024-07-25 10:12 | CASEMGMT ---
Social Work SW met with patient to complete initial assessment. Introduced self and role. Verified/updated contacts. SW discussed code status with pt, Pt confirmed DNR-CCA, no intubation. Pt denied wanting to complete advanced directives. Educated to [facility] insurance with NRD 07/25 and continued stay is not guaranteed with each review. Pt's lives at home alone and was mod I prior using no AD. Pt explained she rents her home from nephew and niece-in law, who live in [place]. Family visited pt last week and expressed concern with pt being able to maintain upkeep for home and yard. Pt agrees and is would like to search for apartment, preferably subsidized housing. SW offered to refer to [facility] Care Coordination Program to assist with community resources. Pt agreed. Pt inquired about MOW as well. SW provided resources, along with housing resources. Pt states she would be able to return to home until she finds another place. SW will continue to follow to assist with DC planning. Care Coordination program referral made via online referral form. MARYAM Gee BANDAGE WRAPPING MACHINE OPERATOR
[2024-07-25 14:21] VITALS: BP 143/73; PULSE 77; RESP 14; TEMP 36.5; O2SAT 98
--- NOTE | 2024-07-25 17:06 | CASEMGMT ---
Social Work Insurance issued LCD 07/27, DC 07/28. SW spoke with pt at bedside to notify of DC, explain appeal rights and discuss DC plans. IDT recommending continued stay as pt was Carlos prior, using no AD, and currently observing some cognitive concerns. ST order entered for evaluation. Pt became emotional and overwhelmed and not sure what to do. SW offered to have pt phone dtr to include in conversation. Pt agreed and FaceTimed dtr. SW explained to insurance process, LCD, appeal rights and pt's current LOF and recommendations. Educated to this worker coordinating skilled HHC at [place]. Pt has all needed DME. Dtr works time study clerk and cannot provide assistance to pt during those hours. Dtr also became emotional as pt just got here. SW provided verbal support. Dtr requesting to appeal and will be visiting pt after work tonight and will file appeal at that time. SW provided dtr with written instructions, ie. providing this worker with case number, to process appeal. If pt loses appeal, pt will DC home with skilled HHC. SW to coordinate. Plan: pending appeal, DC home alone 07/28, HHC PT/OT/ST/SN/MIRLANDE. Ching Galvan, HAND VIOLIN MAKER WINDOWS ADMIN
[2024-07-25] MEDS: FLUCONAZOLE 150 MG TABLET PO (18:25)
--- NOTE | 2024-07-25 18:49 | NURSING ---
Patient reports she is having foul, thick white drainage vaginally and that she was treated prior to hospitalization for yeast infection. Dr. Buchanan made aware and NO for Fluconazole tablets. Patient made aware and treatment started.
--- NOTE | 2024-07-25 21:11 | DS.PCM_ITS ---
Providers Date of Admission: 07/20/24 Primary Care Physician: Dr. Tae Banegas, DO Consultations 07/24/24 11:50 Consult: Gastroenterology Routine Consulting Provider: [facility] Reason for Consult: BLOOD IN STOOL EMERGENT Consult: No MD Notified: Yes Date Notified: 07/24/24 Time Notified: 11:50 Method of Notification: Text Reason For Visit: LUMBAR FUSION Diagnosis Discharge Diagnosis (1) Debility: Status: Acute Code(s): R53.81 - Other malaise (2) Lumbar disc herniation with radiculopathy: Status: Acute Code(s): M51.16 - Intervertebral disc disorders with radiculopathy, lumbar region (3) Status post lumbar spinal fusion: Status: Acute Code(s): Z98.1 - Arthrodesis status (4) Type 2 diabetes mellitus with hyperglycemia: Status: Acute Code(s): E11.65 - Type 2 diabetes mellitus with hyperglycemia (5) Hyperlipidemia: Status: Acute Code(s): E78.5 - Hyperlipidemia, unspecified (6) GERD (gastroesophageal reflux disease): Status: Acute Code(s): K21.9 - Gastro-esophageal reflux disease without esophagitis (7) Depression: Status: Acute Code(s): F32.A - Depression, unspecified (8) Anxiety: Status: Acute Code(s): F41.9 - Anxiety disorder, unspecified (9) Neuropathic pain: Status: Acute Code(s): M79.2 - Neuralgia and neuritis, unspecified (10) Restless legs: Status: Acute Code(s): G25.81 - Restless legs syndrome (11) Atrial fibrillation: Status: Acute Code(s): I48.91 - Unspecified atrial fibrillation Plan 74 year old female with below past medical history hospitalized for L3-L5 fusion surgery 07/18/[address] Jones/Dr. Capps, postoperative course uncomplicated, admitted to TCU with debility, here for rehabilitation, strengthening, prior to discharge home alone. * Debility - PT/OT. * Pain - Tylenol 1000mg q8, Oxycodone 5mg q4 prn pain (1-10). * Bowel - Miralax 17gm daily, senna/colace 2 tablets bid. * Adult immunization - Administer pneumonia vaccine, covid vaccine, flu vaccine as appropriate. * DVT prophylaxis - on Xarelto. * Hyperlipidemia - Atorvastatin 80mg qhs. 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 * Neuropathic pain - Gabapentin 300mg tid. * Nutrition - Glucerna Shake 120ml po bid. * Diabetes Mellitus II - Humalog 75/25 22 units bid, monitor blood sugar. * Muscle spasm - Robaxin 750mg 4x/day prn. * Atrial Fibrillation - Metoprolol succinate 100mg daily, Xarelto 20mg daily. * Nausea - Zofran 8mg q8 prn. * GERD - Pantoprazole 40mg bid, Sucralfate 1gm qachs prn. * Restless Leg syndrome - Mirapex 1.25mg tid. 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 Medications at Discharge Home Medications atorvastatin 80 mg tablet 80 mg PO DAILY cholesterol 07/31/17 insulin human U-100 NPH-regulr 70-30 mix 100 unit/mL subcutaneous susp 22 unit SQ BID diabetes 07/31/17 ondansetron HCl 8 mg tablet 8 mg PO Q8H PRN PRN Nausea/Vomiting #15 tabs 01/06/21 esomeprazole magnesium 40 mg capsule,delayed release 40 mg PO DAILY gerd 07/07/21 rivaroxaban 20 mg tablet (Xarelto) 20 mg PO DAILY a fib 07/07/21 sertraline 100 mg tablet 100 mg PO DAILY depression 07/07/21 buspirone 10 mg tablet 10 mg PO DAILY cyclic vommitting 09/28/23 gabapentin 300 mg capsule 300 mg PO TID cyclic vomitting 09/28/23 pantoprazole 40 mg tablet,delayed release 40 mg PO BID cyclic vomiting 09/28/23 metoprolol succinate 100 mg tablet,extended release 24 hr 100 mg PO DAILY irreg. heart beat 03/24/24 ropinirole 5 mg tablet 5 mg PO TID restless legs 03/24/24 sucralfate 1 gram tablet 1 g PO 4X/DAY PRN gerd 03/24/24 acetaminophen 500 mg tablet 1,000 mg (2 x 500 mg) PO Q8 #0 tabs 07/25/24 methocarbamol 750 mg tablet 750 mg PO 4X/DAY PRN spasms/pain 30 days #120 tabs 07/25/24 oxycodone 5 mg tablet 5 mg PO Q4H PRN PRN Pain Score 1-10 Or Pre Pt/Ot 7 days #42 tabs 07/25/24 sennosides 8.6 mg-docusate sodium 50 mg tablet (Stimulant Laxative Plus) 2 tab PO BID 30 days #120 tabs 07/25/24 Hospital Course Operations - (See below.) Procedures None Summary of Care Provided Minutes Spent on Discharge: 35 Hospital Course: 74 year old female with below past medical history hospitalized for L3-L5 fusion surgery 07/18/[address] Jones/Dr. Capps, postoperative course uncomplicated, admitted to TCU with debility, here for rehabilitation, strengthening, prior to discharge home alone. 07/21/2024 Hemoglobin 7.7, transfused 2 units PRBC. 07/23/2024 Hemoglobin 9.7, Hemoccult positive, Friend consultation pending. Pending appeal, discharge home alone 07/28/2024, [facility] PT/OT/ST/SN/SW. Physical Exam Const alert General Appearance: cooperative HEENT normocephalic Eyes PERRL and EOMs intact bilaterally Neck supple, no JVD and no carotid bruits Resp normal respiratory effort, normal air movement and clear to auscultation bilaterally Cardio regular rate and regular rhythm GI normal to inspection, nondistended, normoactive bowel sounds, non-tender and non-distended Extremity normal capillary refill General Extremity: Negative for edema Skin no rashes or lesions noted General Skin Exam: no breakdown Psych affect normal Appearance: appropriate Weight / BMI Weight Weight: 87.498 kg Body Mass Index (BMI) 29.3 ABG / Lab / Microbiology Data 07/23/24 16:57 07/21/24 05:10 Laboratory: Laboratory Results - last 24 hr 07/24/24 21:36: POC Glucose 267 H 07/25/24 06:04: POC Glucose 169 H Microbiology: Microbiology 07/23/24 22:54 Stool Stool Occult Blood (MT) - Final Occult Blood Positive D/C Instructions Discharge Diet: No restrictions Discharge Activity: Return to Normal Activity, May Shower and Use Walker Weight Bearing Status: Weight bearing as tolerated Call your doctor if you observe: Fever of 101 or Higher, Inability to urinate, Inability to have a bowel movement, Shortness of breath, Dizziness, Fainting spells, Swelling in the ankles, Chest pain and Uncontrolled pain Additional Instructions: Pending appeal, discharge home alone 07/28/2024, [facility] PT/OT/ST/SN/SW. Please Follow Up With: Dr. Jones When: As scheduled. Meaningful Use Info Meaningful Use Meaningful Use Diagnoses (Choose all that apply): None applicable Ischemic Stroke Statin Dosing Therapy Reference: STATIN DOSE THERAPY REFERENCE: * Patients > 75 years receive moderate or high dose statin therapy. * Patients 75 years or YOUNGER should receive HIGH intensity statin dose unless contraindicated. You will be required to document reason for non-treatment if statin daily dose does not meet guidelines. HIGH DOSE STATIN THERAPY DAILY Atorvastatin > than or = to 40 mg Rosuvastatin > than or = to 20 mg Amlodipine + Atorvastatin > than or = to 2.5/40 mg Ezetimibe + Simvastatin 10/80 mg Simvastatin 80mg Discharge Plan Admission Admit Date/Time: 07/20/24 13:54 Primary Reason for Your Visit: Debility. Attending Provider: Jordan Buchanan Chi Primary Care Provider: Tae Banegas Instructions Additional Instructions / Restrictions: Pending appeal, discharge home alone 07/28/2024, [facility] PT/OT/ST/SN/SW. Discharge Orders/Prescriptions Prescriptions: New sennosides-docusate sodium [Stimulant Laxative Plus] 8.6-50 mg Tablet 2 tab PO BID 30 Days Qty: 120 0RF acetaminophen 500 mg Tablet 1,000 mg PO Q8 Qty: 0 0RF methocarbamol 750 mg Tablet 750 mg PO 4X/DAY PRN (Reason: spasms/pain) 30 Days Qty: 120 0RF oxycodone 5 mg Tablet 5 mg PO Q4H PRN PRN (Reason: Pain Score 1-10 Or Pre Pt/Ot) 7 Days Qty: 42 0RF Continued buspirone 10 mg tablet 10 mg PO DAILY gabapentin 300 mg capsule 300 mg PO TID pantoprazole 40 mg tablet,delayed release (DR/EC) 40 mg PO BID sucralfate 1 gram tablet 1 g PO 4X/DAY PRN (Reason: gerd) metoprolol succinate 100 mg tablet extended release 24 hr 100 mg PO DAILY ropinirole 5 mg tablet 5 mg PO TID insulin NPH and regular human 100 UNIT/ML suspension 22 unit SQ BID atorvastatin 80 MG tablet 80 mg PO DAILY ondansetron HCl 8 MG tablet 8 mg PO Q8H PRN PRN (Reason: Nausea/Vomiting) Qty: 15 0RF sertraline 100 mg tablet 100 mg PO DAILY esomeprazole magnesium 40 mg capsule,delayed release(DR/EC) 40 mg PO DAILY Patient Comments: TAKE 1 CAPSULE BY MOUTH EVERY DAY 30 MINUTES BEFORE MEAL Xarelto 20 mg tablet 20 mg PO DAILY Discontinued acetaminophen 500 mg Tablet 500 mg PO Q6H Qty: 30 0RF methocarbamol 500 mg Tablet 750 mg PO 4X/DAY PRN (Reason: spasms/pain) Qty: 30 0RF oxycodone 5 mg Tablet 2.5 - 5 mg PO Q6H PRN (Reason: pain) 7 Days Qty: 28 0RF sennosides-docusate sodium [Stimulant Laxative Plus] 8.6-50 mg Tablet 2 tab PO BID PRN (Reason: constipation) Qty: 30 0RF Referrals / Follow Up: Tae Banegas DO [Primary Care Provider] - Disposition Disposition (needs filled in before D/C Order can be placed): Home Health Service
[2024-07-25 21:19] VITALS: PULSE 62; RESP 16; O2SAT 93
[2024-07-25 21:37] LABS: Bedside Glucose 225 mg/dL (74-106)
[2024-07-25] MEDS: Atorvastatin Calcium 80 MG Tablet PO (21:46)
[2024-07-26] MEDS: Gabapentin 300 MG Capsule PO ×3 (06:02→22:42)
[2024-07-26] MEDS: Acetaminophen 500 MG Tablet 1000 MG PO ×3 (06:02→22:44)
[2024-07-26] MEDS: Pramipexole Di-HCl 0.25 MG Tablet 1.25 MG PO ×3 (06:03→22:43)
[2024-07-26 06:22] LABS: Hematocrit 34.3 % (37-47); Hemoglobin 10.6 g/dL (12.0-15.0)
[2024-07-26 06:50] LABS: Bedside Glucose 144 mg/dL (74-106)
--- NOTE | 2024-07-26 07:14 | NURSING ---
C/o SOB with exertion, no resp distress observed or reported, Sp02 94% on RA, patient reports as new onset. Lung sounds clear A&P. Written communication left for Dr. Buchanan
[2024-07-26] MEDS: Glucerna Shake 120 ML LIQUID PO (08:02)
[2024-07-26] MEDS: MethylPREDNISolone DosePak 4 MG BOX PO ×2 (08:04→22:42)
[2024-07-26] MEDS: busPIRone 5 MG Tablet 10 MG PO (08:05)
[2024-07-26] MEDS: Methocarbamol 750 MG Tablet PO (08:06)
[2024-07-26 08:07] VITALS: BP 141/68; PULSE 71
[2024-07-26] MEDS: Pantoprazole Sodium 40 MG Tablet PO ×2 (08:07→22:43)
[2024-07-26] MEDS: FLUCONAZOLE 150 MG TABLET PO (08:07)
[2024-07-26] MEDS: Metoprolol(XL)Succ 100 MG Tablet PO (08:07)
[2024-07-26] MEDS: Sertraline 100 MG Tablet PO (08:08)
[2024-07-26] MEDS: Insulin Human 75/25 Kwickpen 22 UNIT SC ×2 (08:08→22:44)
[2024-07-26 08:13] VITALS: BP 141/68; PULSE 71; O2SAT 99
--- NOTE | 2024-07-26 08:45 | RAD_ITS ---
STUDY: X-RAY CHEST REASON FOR EXAM: Female, 74 years old. Shortness of breath on exertion. TECHNIQUE: PA and lateral views of the chest. COMPARISON: Comparison is made with prior study dated August 10, 2023. FINDINGS: Stable mild increased markings at the lung bases more prominent at the left lung base suggests scarring. There is no demonstrated pleural abnormality. Sternal cerclage wires are present from a prior sternotomy. Normal mediastinum and j carlos. Normal visualized pulmonary arteries. There is atherosclerotic calcification of the aortic arch with tortuosity. There is demineralization of the osseous structures. Normal visualized ribs, clavicles, and shoulders. There is no demonstrated abnormality of the visualized soft tissue structures of the upper abdomen. RAD/Chest PA and Lateral IMPRESSION: Stable mild increased markings at the lung bases suggest mild scarring. This is more prominent at the left lung base. Electronically Signed: Ramiro Valentin MD at 13:18 EDT ,
--- NOTE | 2024-07-26 09:51 | CASEMGMT ---
Social Work IDT met with patient for care plan meeting. VM left for dtr. Discussed patient's progress in PT/OT/SN. ST to eval today for cognition. Pt unable to confirm if dtr filed appeal. SW reminded pt the appeal must be filed by noon this date. Expressed concern with pt returning home alone, specifically with recall and comprehension. Pt unable provide input into discharge plan. SW will continue to attempt to speak with dtr. SW will continue to follow. Ching Galvan, STAMPING MACHINE OPERATOR WADER BOOT TOP ASSEMBLER
[2024-07-26 11:50] VITALS: PULSE 60; RESP 18; O2SAT 98
--- NOTE | 2024-07-26 11:59 | NURSING ---
Plant Maintenance Mechanic Note; Activity Asset: Jayla Briggs is independent in her choice of daily activities. She has her smartphone and tablet she will use along with reading and watching tv. She welcomes visits from the multiple games dealer and therapy dog when available. Staff will encourage group activities, remind her of weekly activities and respect her right to say no.
--- NOTE | 2024-07-26 13:06 | CASEMGMT ---
Addendum entered by Ching Galvan 07/26/24 16:32: Correction: [facility] and [facility] ARE INN with insurance. [facility] will need to complete financial risk assessment with pt. W reviewing. [facility] confirmed pt is OON and pt does not have any OON benefits. panchito completed Medicaid application. Original Note: Social Work Dtr returned call and filed an appeal giving the . SW inquired about DC plan. Inquired about pt being at home with dtr or another family member. Dtr denied, and stated pt will need to go home alone or a SNF. SW educated to SNF liability and offered to refer for Medicaid screening. Dtr unsure of pt's finances, but does believe pt will qualify. SW offered to send dtr a list of SNF providers INN with insurance with quality and resource data via [employer]. Dtr denied requesting referrals to [facility], [facility] and [facility]. SW agreed to refer but will research if those are INN with insurance. Dtr appreciative. MIRLANDE phoned [facility] to get medical records request faxed to this worker. SW received and sent to HIM to process. MIRLANDE sent secure email to [facility] to screen for Medicaid. Referrals sent to [facility], [facility] and [facility] via [employer], however, none of those facilities are listed as INN with insurance. SW inquired about OON benefits. Will continue to follow. Ching Galvan, MARYAM WEINSTEINW
[2024-07-26] MEDS: oxyCODONE 5 MG Tablet PO ×2 (13:30→22:42)
--- NOTE | 2024-07-26 14:25 | CASEMGMT ---
Social Work BIMS () and PHQ2 (0) interviews completed on this date for MDS assessment. POOJA Ulloa
--- NOTE | 2024-07-26 14:47 | CHAPLAIN ---
Type of Pastoral Visit _x__ Initial Visit ___ Follow-up Visit ___ On-call Visit ___ General Patient Visit ___ Spiritual Assessment ___ Family Conference ___ Bereavement ___ Rapid Response ___ Code Blue ___ Other (describe below) Pastoral Care Referral From _x__ Patient ___ Family ___ Nurse ___ Physician ___ Salesperson Women'S Hats ___ Kennel Aide ___ Other (describe below) Sacrament/Intervention _x__ Active listening ___ Anointing ___ Taoism ___ Bereavement ___ Communion ___ Leti exploration ___ _x__ Life review _x__ Prayer ___ Reconciliation ___ Sacrament of Sick _x__ Supportive presence ___ Wedding ___ Other (describe below) Pastoral Comments patient is open to discuss her situation and health concerns; pt would like to be out of the hospital but recognizes her need for it now; pt is facing change in life which includes a move to [place] or apartment living; pt states that she will be fine with this idea because I know it is the right thing; pt welcomes prayer and presence
[2024-07-26 14:53] VITALS: BP 143/57; PULSE 55; RESP 18; TEMP 36.3; O2SAT 99
--- NOTE | 2024-07-26 15:22 | NURSING ---
Addendum entered by Ruben Sierra 07/27/24 10:30: AM meds given. OK'd by Dr. Ruiz. Original Note: IN TO SEE PT. WILL DO A EGD TOMORROW,[07/27/24]. SURGERY WILL CALL TO LET US KNOW WHAT TIME. OK PER TO GIVE ALL MEDS, NPO AT MIDNIGHT. FAMILY AWARE. RN AWARE
--- NOTE | 2024-07-26 16:34 | CASEMGMT ---
Addendum entered by Ching Galvan 07/27/24 14:34: [facility] has no beds. [facility] cannot accept. Pt no longer wants [facility]. SW updated [facility]. SW spoke with dtr to update and named the other three remaining INN facilities. Dtr agreed to those referrals. [facility] is attempting to complete the financial risk assessment, but they are ONN with insurance. SW sent referrals to [facility] and [facility]. Will continue to follow. Addendum entered by Ching Galvan 07/26/24 16:51: SW phoned dtr to update on ST evaluation findings and outcome of SNFs. Again, offered list of INN SNFs to choose from. Dtr requested verbal list. SW provided those options. Dtr requested referrals to [facility] and [facility]. SW placed referral to SNFs via [employer]. Will continue to follow, Original Note: Social Work Dtr returned call and filed an appeal giving the . SW inquired about DC plan. Inquired about pt being at home with dtr or another family member. Dtr denied, and stated pt will need to go home alone or a SNF. SW educated to SNF liability and offered to refer for Medicaid screening. Dtr unsure of pt's finances, but does believe pt will qualify. SW offered to send dtr a list of SNF providers INN with insurance with quality and resource data via [employer]. Dtr denied requesting referrals to [facility], [facility] and [facility]. SW agreed to refer but will research if those are INN with insurance. Dtr appreciative. MIRLANDE phoned [facility] to get medical records request faxed to this worker. SW received and sent to HIM to process. MIRLANDE sent secure email to [facility] to screen for Medicaid. Referrals sent to [facility], [facility] and [facility] via [employer], however, none of those facilities are listed as INN with insurance. MIRLANDE inquired about OON benefits. -- [facility] will need to complete financial risk assessment with pt, and confirmed pt is OON and has no OON benefits. [facility] does not have any beds. [facility] confirmed pt is OON. Erin completed Medicaid application. MARYAM Gee
--- NOTE | 2024-07-26 16:46 | CON.PCM.GI_ITS ---
HPI Consult Data Date of Consult: 07/26/24 HPI Narrative Reason for Consultation: Anemia HPI Narrative: TACOS ESPINOZA, is a 74-year-old lady with an extensive cardiac history. She has a history of hypertension, diabetes mellitus, renal cell carcinoma with a right partial nephrectomy, peripheral vascular disease, and paroxysmal atrial fibrillation. She also has a history of coronary artery disease status post coronary bypass surgery in 2002. She had a left internal mammary artery to the left anterior descending artery and a saphenous vein graft to the right posterior descending artery. She presented to [facility] 07/18/2024 due to lumbar stenosis with neurogenic claudication and underwent lumbar fusion with Dr. Jones. Her echocardiogram demonstrated an ejection fraction of 60%, stage II diastolic dysfunction, and a moderately dilated left atrium. Had stress test in October 2023 that was considered to be abnormal. She proceeded with a heart catheterization in November 2023 that showed well revascularized LAD and RCA territories with preserved ejection fraction. Medical therapy was recommended. I was asked to see her due to worsening anemia. Her hemoglobin was 11.5 a drop down to 7.7. She received 2 units packed red blood cells and her hemoglobin has been hanging between 9 and 9.3. [facility] Medical History (Updated 07/26/24 @ 16:[address] Viveros Friend, DO) History of stress test Wears glasses Wears dentures Cancer Depression Insulin dependent diabetes mellitus Walker as ambulation aid Arthritis Fatty liver High cholesterol Restless legs History of hiatal hernia Shortness of breath on exertion Former smoker Asthma COPD (chronic obstructive pulmonary disease) Leg cramps History of echocardiogram History of stress test Cardiology follow-up encounter History of atrial fibrillation Fracture of right femur Hyperglycemia due to type 1 diabetes mellitus Acute dehydration Chronic atrial fibrillation with rapid ventricular response Cyclic vomiting syndrome Hypomagnesemia NPDR (nonproliferative diabetic retinopathy) Chronic vomiting Peripheral vascular occlusive disease Anxiety Renal cell carcinoma Atherosclerosis of coronary artery of [place] heart without angina pectoris Essential (primary) hypertension Gastro-esophageal reflux disease without esophagitis Peripheral neuropathy Chronic kidney disease, stage 3 Mild chronic obstructive pulmonary disease Type II diabetes mellitus Home Medications ?Medication ?Instructions ?Recorded ?Last Taken ?Type atorvastatin 80 mg tablet 80 mg PO DAILY cholesterol 07/31/17 07/17/24 History insulin human U-100 NPH-regulr 22 unit SQ BID diabetes 07/31/17 07/17/24 History 70-30 mix 100 unit/mL subcutaneous susp ondansetron HCl 8 mg tablet 8 mg PO Q8H PRN PRN 01/06/21 Unknown Rx Nausea/Vomiting #15 tabs esomeprazole magnesium 40 mg 40 mg PO DAILY gerd 07/07/21 07/17/24 History capsule,delayed release rivaroxaban 20 mg tablet (Xarelto) 20 mg PO DAILY a fib 07/07/21 07/15/24 History sertraline 100 mg tablet 100 mg PO DAILY depression 07/07/21 07/17/24 History buspirone 10 mg tablet 10 mg PO DAILY cyclic vommitting 09/28/23 07/17/24 History gabapentin 300 mg capsule 300 mg PO TID cyclic vomitting 09/28/23 07/17/24 History pantoprazole 40 mg tablet,delayed 40 mg PO BID cyclic vomiting 09/28/23 07/17/24 History release metoprolol succinate 100 mg 100 mg PO DAILY irreg. heart beat 03/24/24 07/17/24 History tablet,extended release 24 hr ropinirole 5 mg tablet 5 mg PO TID restless legs 03/24/24 07/17/24 History sucralfate 1 gram tablet 1 g PO 4X/DAY PRN gerd 03/24/24 Unknown History acetaminophen 500 mg tablet 1,000 mg (2 x 500 mg) PO Q8 #0 tabs 07/25/24 Unknown Rx methocarbamol 750 mg tablet 750 mg PO 4X/DAY PRN spasms/pain 07/25/24 Unknown Rx 30 days #120 tabs oxycodone 5 mg tablet 5 mg PO Q4H PRN PRN Pain Score 07/25/24 Unknown Rx 1-10 Or Pre Pt/Ot 7 days #42 tabs sennosides 8.6 mg-docusate sodium 2 tab PO BID 30 days #120 tabs 07/25/24 Unknown Rx 50 mg tablet (Stimulant Laxative Plus) Allergy/AdvReac Type Severity Reaction Status Date / Time diphenhydramine HCl (From AdvReac restless Verified 07/18/24 05:53 Benadryl) legs dofetilide AdvReac LONG QT Verified 07/18/24 05:53 haloperidol (From Haldol) AdvReac Other Verified 07/18/24 05:53 metoclopramide (From Reglan) AdvReac restless Verified 07/18/24 05:53 legs Family History Mother Cancer Stomach Father Colon cancer Heart disease Sister Colon cancer Surgical History History of bladder repair surgery History of cardiac catheterization (~11/2023) History of angioplasty of peripheral vessel (07/2013) History of cholecystectomy (08/2019) History of radiofrequency ablation procedure for cardiac arrhythmia (03/19/16) History of cardioversion (2014) History of open reduction and internal fixation (ORIF) procedure H/O laminectomy History of colonoscopy H/O coronary artery bypass surgery (01/29/03) History of hysterectomy (1995) History of esophagogastroduodenoscopy (EGD) (01/2018) History of partial nephrectomy Social History household members: none Smoking Status: Former smoker pack-years: 40 how long ago did patient quit smokin alcohol intake: never substance use type: does not use caffeine: Yes (Occasionally) Type: carbonated beverages ROS Constitutional Constitutional: Denies chills, fever(s) or weight gain ENT HEENT: Denies headache(s), nasal congestion or nasal discharge Cardiovascular Cardiovascular: Denies chest pain or palpitations Respiratory/Chest Respiratory/Chest: Denies cough, excessive phlegm production or shortness of breath with exertion Gastrointestinal Gastrointestinal: Denies abdominal pain, nausea or vomiting Genitourinary Genitourinary: Denies dysuria Musculoskeletal Musculoskeletal: Denies joint pain or joint swelling Integumentary Integumentary: Denies rash or wounds Neurologic Neurologic: Denies focal weakness, numbness or tingling Psychiatric Psychiatric: Denies anxiety, auditory hallucinations, depression, homicidal ideation or suicidal ideation Physical Exam Const alert General Appearance: cooperative HEENT normocephalic Eyes PERRL and EOMs intact bilaterally Neck supple, no JVD and no carotid bruits Resp normal respiratory effort, normal air movement and clear to auscultation bilaterally Cardio regular rate and regular rhythm GI normal to inspection, nondistended, normoactive bowel sounds, non-tender and non-distended Extremity normal capillary refill General Extremity: Negative for edema Skin no rashes or lesions noted General Skin Exam: no breakdown Psych affect normal Appearance: appropriate Lab / Micro Data 07/26/24 05:49 07/21/24 05:10 Labs: Laboratory Results - last 24 hr 07/25/24 21:17: POC Glucose 225 H 07/26/24 05:49: Hgb 10.6 L, Hct 34.3 L 07/26/24 06:22: POC Glucose 144 H Imaging Radiology Impression Chest X-Ray 07/26/24 08:45 IMPRESSION: Stable mild increased markings at the lung bases suggest mild scarring. This is more prominent at the left lung base. Electronically Signed: Ramiro Valentin MD at 13:18 EDT , Assessment & Plan Assessment/Plan (1) Atrial fibrillation: (2) Anemia: PLAN: Plan 74-year-old on anticoagulation and recent diagnosis of chronic anemia presents for rehab after undergoing lumbar fusion surgery. She was discovered to have a significant iron deficiency anemia requiring blood transfusions. She should undergo an upper endoscopy to evaluate upper GI tract and possible colonoscopy. She was explained alternatives, risk, benefits including outstanding bleeding, infection, sepsis, perforation, need for charge and . She will have an ASA of 3. Charges/Coding Visit Charges Inpatient E&M: 33607 [facility] Subs L3
[2024-07-26 21:37] LABS: Bedside Glucose 228 mg/dL (74-106)
[2024-07-26] MEDS: Atorvastatin Calcium 80 MG Tablet PO (22:43)
--- NOTE | 2024-07-27 | NURSING ---
NPO at this time per order
[2024-07-27] MEDS: oxyCODONE 5 MG Tablet PO ×2 (06:04→22:06)
[2024-07-27] MEDS: Gabapentin 300 MG Capsule PO ×3 (06:04→22:07)
[2024-07-27] MEDS: Pramipexole Di-HCl 0.25 MG Tablet 1.25 MG PO ×3 (06:04→22:09)
[2024-07-27] MEDS: Acetaminophen 500 MG Tablet 1000 MG PO ×3 (06:04→22:10)
[2024-07-27 06:08] VITALS: PULSE 74; RESP 16; O2SAT 97
[2024-07-27 06:38] LABS: Bedside Glucose 154 mg/dL (74-106)
--- NOTE | 2024-07-27 08:47 | NURSING ---
Assessment Consultant Note; MDS for 07/27/2024 Complete
[2024-07-27 10:21] VITALS: BP 137/60; PULSE 60; RESP 16; TEMP 35.6; O2SAT 100
[2024-07-27] MEDS: MethylPREDNISolone DosePak 4 MG BOX PO (10:23)
[2024-07-27] MEDS: busPIRone 5 MG Tablet 10 MG PO (10:24)
[2024-07-27 10:25] VITALS: PULSE 60
[2024-07-27] MEDS: Metoprolol(XL)Succ 100 MG Tablet PO (10:25)
[2024-07-27] MEDS: FLUCONAZOLE 150 MG TABLET PO (10:25)
[2024-07-27] MEDS: Pantoprazole Sodium 40 MG Tablet PO ×2 (10:25→22:09)
[2024-07-27] MEDS: Sertraline 100 MG Tablet PO (10:25)
--- NOTE | 2024-07-27 12:14 | NURSING ---
Addendum entered by Ruben Sierra 07/27/24 14:15: Patient returned to the unit at this time. Original Note: Patient exited the unit for EGD at this time.
--- NOTE | 2024-07-27 13:25 | HP.PCM_ITS ---
History and Physical Date of Admission: 07/27/24 Reason for Consultation: Anemia HPI Narrative: TACOS ESPINOZA, is a 74-year-old lady with an extensive cardiac history. She has a history of hypertension, diabetes mellitus, renal cell carcinoma with a right partial nephrectomy, peripheral vascular disease, and paroxysmal atrial fibrillation. She also has a history of coronary artery disease status post coronary bypass surgery in 2002. She had a left internal mammary artery to the left anterior descending artery and a saphenous vein graft to the right posterior descending artery. She presented to [facility] 07/18/2024 due to lumbar stenosis with neurogenic claudication and underwent lumbar fusion with Dr. Jones. Her echocardiogram demonstrated an ejection fraction of 60%, stage II diastolic dysfunction, and a moderately dilated left atrium. Had stress test in October 2023 that was considered to be abnormal. She proceeded with a heart catheterization in November 2023 that showed well revascularized LAD and RCA territories with preserved ejection fraction. Medical therapy was recommended. I was asked to see her due to worsening anemia. Her hemoglobin was 11.5 a drop down to 7.7. She received 2 units packed red blood cells and her hemoglobin has been hanging between 9 and 9.3. [facility] Medical History (Updated 07/26/24 @ 16:[address] Viveros Friend, DO) History of stress test Wears glasses Wears dentures Cancer Depression Insulin dependent diabetes mellitus Walker as ambulation aid Arthritis Fatty liver High cholesterol Restless legs History of hiatal hernia Shortness of breath on exertion Former smoker Asthma COPD (chronic obstructive pulmonary disease) Leg cramps History of echocardiogram History of stress test Cardiology follow-up encounter History of atrial fibrillation Fracture of right femur Hyperglycemia due to type 1 diabetes mellitus Acute dehydration Chronic atrial fibrillation with rapid ventricular response Cyclic vomiting syndrome Hypomagnesemia NPDR (nonproliferative diabetic retinopathy) Chronic vomiting Peripheral vascular occlusive disease Anxiety Renal cell carcinoma Atherosclerosis of coronary artery of [place] heart without angina pectoris Essential (primary) hypertension Gastro-esophageal reflux disease without esophagitis Peripheral neuropathy Chronic kidney disease, stage 3 Mild chronic obstructive pulmonary disease Type II diabetes mellitus Home Medications ?Medication ?Instructions ?Recorded ?Last Taken ?Type atorvastatin 80 mg tablet 80 mg PO DAILY cholesterol 07/31/17 07/17/24 History insulin human U-100 NPH-regulr 22 unit SQ BID diabetes 07/31/17 07/17/24 History 70-30 mix 100 unit/mL subcutaneous susp ondansetron HCl 8 mg tablet 8 mg PO Q8H PRN PRN 01/06/21 Unknown Rx Nausea/Vomiting #15 tabs esomeprazole magnesium 40 mg 40 mg PO DAILY gerd 07/07/21 07/17/24 History capsule,delayed release rivaroxaban 20 mg tablet (Xarelto) 20 mg PO DAILY a fib 07/07/21 07/15/24 History sertraline 100 mg tablet 100 mg PO DAILY depression 07/07/21 07/17/24 History buspirone 10 mg tablet 10 mg PO DAILY cyclic vommitting 09/28/23 07/17/24 History gabapentin 300 mg capsule 300 mg PO TID cyclic vomitting 09/28/23 07/17/24 History pantoprazole 40 mg tablet,delayed 40 mg PO BID cyclic vomiting 09/28/23 07/17/24 History release metoprolol succinate 100 mg 100 mg PO DAILY irreg. heart beat 03/24/24 07/17/24 History tablet,extended release 24 hr ropinirole 5 mg tablet 5 mg PO TID restless legs 03/24/24 07/17/24 History sucralfate 1 gram tablet 1 g PO 4X/DAY PRN gerd 03/24/24 Unknown History acetaminophen 500 mg tablet 1,000 mg (2 x 500 mg) PO Q8 #0 tabs 07/25/24 Unknown Rx methocarbamol 750 mg tablet 750 mg PO 4X/DAY PRN spasms/pain 07/25/24 Unknown Rx 30 days #120 tabs oxycodone 5 mg tablet 5 mg PO Q4H PRN PRN Pain Score 07/25/24 Unknown Rx 1-10 Or Pre Pt/Ot 7 days #42 tabs sennosides 8.6 mg-docusate sodium 2 tab PO BID 30 days #120 tabs 07/25/24 Unknown Rx 50 mg tablet (Stimulant Laxative Plus) Allergy/AdvReac Type Severity Reaction Status Date / Time diphenhydramine HCl (From AdvReac restless Verified 07/18/24 05:53 Benadryl) legs dofetilide AdvReac LONG QT Verified 07/18/24 05:53 haloperidol (From Haldol) AdvReac Other Verified 07/18/24 05:53 metoclopramide (From Reglan) AdvReac restless Verified 07/18/24 05:53 legs Family History Mother Cancer StomachFather Colon cancer Heart diseaseSister Colon cancer Surgical History History of bladder repair surgery History of cardiac catheterization (~11/2023) History of angioplasty of peripheral vessel (07/2013) History of cholecystectomy (08/2019) History of radiofrequency ablation procedure for cardiac arrhythmia (03/19/16) History of cardioversion (2014) History of open reduction and internal fixation (ORIF) procedure H/O laminectomy History of colonoscopy H/O coronary artery bypass surgery (01/29/03) History of hysterectomy (1995) History of esophagogastroduodenoscopy (EGD) (01/2018) History of partial nephrectomy Social History household members: none Smoking Status: Former smoker pack-years: 40 how long ago did patient quit smokin alcohol intake: never substance use type: does not use caffeine: Yes (Occasionally) Type: carbonated beverages ROS Constitutional Constitutional: Denies chills, fever(s) or weight gain ENT HEENT: Denies headache(s), nasal congestion or nasal discharge Cardiovascular Cardiovascular: Denies chest pain or palpitations Respiratory/Chest Respiratory/Chest: Denies cough, excessive phlegm production or shortness of breath with exertion Gastrointestinal Gastrointestinal: Denies abdominal pain, nausea or vomiting Genitourinary Genitourinary: Denies dysuria Musculoskeletal Musculoskeletal: Denies joint pain or joint swelling Integumentary Integumentary: Denies rash or wounds Neurologic Neurologic: Denies focal weakness, numbness or tingling Psychiatric Psychiatric: Denies anxiety, auditory hallucinations, depression, homicidal ideation or suicidal ideation Physical Exam Const alert General Appearance: cooperative HEENT normocephalic Eyes PERRL and EOMs intact bilaterally Neck supple, no JVD and no carotid bruits Resp normal respiratory effort, normal air movement and clear to auscultation bilaterally Cardio regular rate and regular rhythm GI normal to inspection, nondistended, normoactive bowel sounds, non-tender and non-distended Extremity normal capillary refill General Extremity: Negative for edema Skin no rashes or lesions noted General Skin Exam: no breakdown Psych affect normal Appearance: appropriate Lab / Micro Data 07/26/24 05:49 07/21/24 05:10 Labs: Laboratory Results - last 24 hr 07/25/24 21:17: POC Glucose 225 H 07/26/24 05:49: Hgb 10.6 L, Hct 34.3 L 07/26/24 06:22: POC Glucose 144 H Imaging Radiology Impression Chest X-Ray 07/26/24 08:45 IMPRESSION: Stable mild increased markings at the lung bases suggest mild scarring. This is more prominent at the left lung base. Electronically Signed: Ramiro Valentin MD at 13:18 EDT , Assessment & Plan Assessment/Plan (1) Atrial fibrillation: (2) Anemia: PLAN: Plan 74-year-old on anticoagulation and recent diagnosis of chronic anemia presents for rehab after undergoing lumbar fusion surgery. She was discovered to have a significant iron deficiency anemia requiring blood transfusions. She should undergo an upper endoscopy to evaluate upper GI tract and possible colonoscopy. She was explained alternatives, risk, benefits including outstanding bleeding, infection, sepsis, perforation, need for charge and . She will have an ASA of 3. I have examined the patient and the H&P has been reviewed. There are no clinical changes since date of exam.
--- NOTE | 2024-07-27 14:12 | NURSING ---
Received report following EGD. Patient doing well, drinking some water. Biopsy of gastric polyp taken.Patient returning to floor.
[2024-07-27] MEDS: Senna/Docusate Sodium 1 Tablet 2 TABLET PO ×2 (15:28→22:09)
[2024-07-27 21:00] VITALS: BP 143/65; PULSE 66; RESP 16; TEMP 36; O2SAT 99
[2024-07-27 21:36] LABS: Bedside Glucose 274 mg/dL (74-106)
[2024-07-27] MEDS: 0.9% Saline Lock 10 ML Syringe IV (22:06)
[2024-07-27] MEDS: Atorvastatin Calcium 80 MG Tablet PO (22:08)
[2024-07-27] MEDS: Insulin Human 75/25 Kwickpen 22 UNIT SC (22:30)
[2024-07-28] MEDS: Gabapentin 300 MG Capsule PO ×2 (05:51→13:28)
[2024-07-28] MEDS: Acetaminophen 500 MG Tablet 1000 MG PO ×2 (05:51→13:27)
[2024-07-28] MEDS: Pramipexole Di-HCl 0.25 MG Tablet 1.25 MG PO ×2 (05:51→15:14)
[2024-07-28] MEDS: oxyCODONE 5 MG Tablet PO ×2 (05:58→13:28)
[2024-07-28 06:01] VITALS: RESP 16
[2024-07-28 06:02] LABS: Absolute Lymphocyte Count 1.72 X10^3/uL (0.83-4.51); Absolute Neutrophil Count 5.2 X10^3/uL (2.0-7.7); Basophil# 0.03 X10^3/uL; Basophil% 0.4 % (0-1); Eosinophils% 1.3 % (0-5); Hematocrit 32.6 % (37-47); Hemoglobin 9.9 g/dL (12.0-15.0); Lymphocyte # 1.72 X10^3/ul (0.83-4.51); Lymphocyte % 22.4 % (19-41); Mean Corp Hgb Conc 30.4 g/dL (32-36); Mean Corpuscular Volume 95.6 fL (81-99); Monocyte# 0.59 X10^3/uL; Monocyte% 7.7 % (0-10); NRBC Flagged by Analyzer 0 % (0-5); Neutrophil # 5.16 X10^3/uL (2.7-7.7); Neutrophil % 67.2 % (47-70); Platelet Count 245 K/mm3 (150-450); RBC Distribution Width CV 14.5 % (11.6-14.6); RBC Distribution Width SD 50.4 fl (35.1-43.9); Red Blood Count 3.41 M/mm3 (4.2-5.4); White Blood Count 7.7 K/mm3 (4.4-11.0)
[2024-07-28 06:33] LABS: Bedside Glucose 134 mg/dL (74-106)
[2024-07-28] MEDS: Insulin Human 75/25 Kwickpen 22 UNIT SC (09:14)
[2024-07-28] MEDS: FLUCONAZOLE 150 MG TABLET PO (09:14)
[2024-07-28] MEDS: busPIRone 5 MG Tablet 10 MG PO (09:14)
[2024-07-28] MEDS: Pantoprazole Sodium 40 MG Tablet PO (09:15)
[2024-07-28] MEDS: Sertraline 100 MG Tablet PO (09:16)
[2024-07-28 09:18] VITALS: BP 121/46; PULSE 73
[2024-07-28] MEDS: Metoprolol(XL)Succ 100 MG Tablet PO (09:18)
[2024-07-28] MEDS: Senna/Docusate Sodium 1 Tablet 2 TABLET PO (09:25)
[2024-07-28 09:54] LABS: Anion Gap 4 (5-15); BUN 30 mg/dL (7-18); BUN/Creat Ratio 26.8 RATIO (10-20); Calcium,Total 8.9 mg/dL (8.5-10.1); Chloride 107 mmol/L (98-107); Creatinine, Serum 1.12 mg/dL (0.55-1.02); EST Glomerular Filtration Rate 51 mL/min (>60); Est Glom Filt Rate - Afr Amer 62 mL/min (>60); Estimated Creatinine Clearance 52.57 ml/min; Glucose 146 mg/dL (74-106); Potassium 4.8 mmol/L (3.5-5.1); Sodium Level 139 mmol/L (136-145)
--- NOTE | 2024-07-28 10:12 | CASEMGMT ---
Social Work Received appeal outcome via fax. Pt lost appeal. SW updated IDT. Dr on unit and Dr stated pt is stable medically and is able to DC home. SW spoke with pt to update and provide option for continuing with SNF or DC home. Pt requesting to DC home. SW encouraged to use walker, as pt is forgetful, and get resources in place at home for success, i.e. MOW and medical alert. SW offered to make a counseling appt, but pt denied. SW offered skilled HHC and to provide a list of providers with quality and resource data via [employer]. Pt agreed to HHC but denied list and deferred to dtr for selection. Pt confirmed she has a walker at home. SW phoned dtr to update on above. Dtr emotional and nervous about pt discharging home. SW reviewed therapy notes with dtr and pt is mod I or SBA for all tasks, except Kennedy for showering. Dtr agreed she can be present and assist when pt showers. Dtr is agreeable for pt to be home with skilled HHC and will plan on staying overnight with pt through the weekend to assist with transition. Dtr denied list of HHC and agreeable to [facility]. Dtr to transport pt after work about 1800. SW phoned referral to [facility] for PT/OT/ST/SN/SW. Plan: DC home 07/28, [facility] PT/OT/ST/SN/SW MARYAM Gee
[2024-07-28 12:31] VITALS: BP 143/65; PULSE 66; RESP 16; TEMP 36; O2SAT 99
--- NOTE | 2024-08-02 10:37 | MDS.RN ---
Information for the MDS was obtained from review of the clinical record, interview of resident, staff, and direct observation of resident?s care.
== END 2024-07-28 16:00 | disposition home health service (06) | DRG 560 ==
PROVIDERS: Admitting Provider Family Medicine Geriatric Medicine; PCP Student in an Organized Health Care Education/Training Program; Referring Provider Family Medicine Geriatric Medicine; Visit Provider Family Medicine Geriatric Medicine
DX: Z47.89 Encounter for other orthopedic aftercare (principal); D62 Acute posthemorrhagic anemia; E10.42 Type 1 diabetes mellitus with diabetic polyneuropathy; E10.51 Type 1 diabetes mellitus with diabetic peripheral angiopathy without gangrene; G25.81 Restless legs syndrome; I48.91 Unspecified atrial fibrillation; B37.31 Acute candidiasis of vulva and vagina; N18.30 Chronic kidney disease, stage 3 unspecified; J44.9 Chronic obstructive pulmonary disease, unspecified; I12.9 Hypertensive chronic kidney disease with stage 1 through stage 4 chronic kidney disease, or unspecified chronic kidney disease; F32.A Depression, unspecified; E10.22 Type 1 diabetes mellitus with diabetic chronic kidney disease; E10.65 Type 1 diabetes mellitus with hyperglycemia; E78.00 Pure hypercholesterolemia, unspecified; K21.9 Gastro-esophageal reflux disease without esophagitis; Z79.4 Long term (current) use of insulin; M51.16 Intervertebral disc disorders with radiculopathy, lumbar region; I25.10 Atherosclerotic heart disease of native coronary artery without angina pectoris; F41.9 Anxiety disorder, unspecified; Z87.891 Personal history of nicotine dependence; Z79.01 Long term (current) use of anticoagulants; Z79.899 Other long term (current) drug therapy; Z98.1 Arthrodesis status
CPT/HCPCS: 36415; 71046; 80048; 82274; 82962; 83540; 83550; 85014; 85018; 85025; 86850; 86900; 86901; 86920; 86922; 92507; 92523; 97110; 97116; 97162; 97166; 97530; 97535; A4216; J2405

== ENCOUNTER 2024-07-22 09:14 | Outpatient (CLI) | payer MEDICARE, SELFPAY ==
[2024-07-22] VITALS (8 sets, daily range): BP systolic 110–142; BP diastolic 52–62; PULSE 60–78; RESP 16–20; TEMP 36.4–36.8; O2SAT 96–99
[2024-07-22] MEDS: 0.9% Saline Lock 10 ML Syringe IV (13:09)
[2024-07-22] MEDS: Furosemide 20 MG/2 ML VIAL IV (13:09)
[2024-07-22 14:01] LABS: Bedside Glucose 62 mg/dL (74-106)
[2024-07-22 15:18] LABS: Bedside Glucose 95 mg/dL (74-106)
== END 2024-07-22 17:05 | disposition home or self-care (01) ==
LOC: MEDOUTP 09:14 → MS3 09:15
PROVIDERS: PCP Student in an Organized Health Care Education/Training Program; Referring Provider Family Medicine Geriatric Medicine; Visit Provider Family Medicine Geriatric Medicine
DX: D64.89 Other specified anemias (principal)
CPT/HCPCS: 96374; 36430; 82962; 86850; 86900; 86901; 86920; 86922; J7040; P9016; A4216; J1940

== ENCOUNTER 2024-07-27 13:10 | Day surgery (SDC) | payer MEDICARE, SELFPAY ==
[2024-07-27] VITALS (9 sets, daily range): BP systolic 123–176; BP diastolic 65–95; PULSE 55–74; RESP 16–18; TEMP 36.4–36.6; O2SAT 95–100; BMI 28.1
--- NOTE | 2024-07-27 | IMM_PTH ---
PATIENT: TACOS ESPINOZA LOC: EN U#:[id number] AGE/SX: 74/F ROOM: RE07/27/[address]: Dr. Felice Ruiz DO : 1950 BED: DIS: 07/27/2024 SPEC #: [id number] RECD: 07/28/24 11:36 STATUS: SO REJoseph #: [id number] MELISSA: 07/27/24 00:[address]: Felice Ruiz DEPT: IMMUNOHISTOCHEMISTRY RECD BY: Megan Best ENTERED: 07/28/24 11:37 SP TYPE: IMMUNO OTHR DR: Dr. Tae Banegas, Tissues: POLYP Procedures: H Pylori (initial) PHYSICIAN & INSTITUTION [place] [id number] SPECIMEN INFORMATION: Tissue Source: Gastric polyp Clinical Info: Atrial fibrillation, anemia Specimen Number: [id number] CPT code: 59353 METHODOLOGY: Deparaffinized sections of prefer/formalin-fixed tissue or PAP/DQ stained slides are incubated with monoclonal/polyclonal antibodies/oligonucleotide probes. Localization is made via biotin free immunoperoxidase method. Appropriate controls are performed and reacted as expected. Results on target cell population are indicated in the following table: RESULTS: ANTIBODY / CLONE RESULT H Pylori (polyclonal) negative These tests were developed and their performance characteristics determined by [facility]. They may not have been cleared or approved by the U.S. Food and Drug Administration. The FDA has determined that such clearance or approval is not necessary. The above immunohistochemical/dualISH markers are ordered and reviewed by the Pathologist. INTERPRETATION: Gastric polyp, biopsy: Negative for Helicobacter pylori organisms. 07/31/2024
[2024-07-27] MEDS: Lactated Ringers 1,000 ML 15 ML IV (13:08)
--- NOTE | 2024-07-27 13:15 | EGD_PTH ---
PATIENT: TACOS ESPINOZA LOC: EN U#:[id number] AGE/SX: 74/F ROOM: RE07/27/[address]: Dr. Felice Ruiz DO : 1950 BED: DIS: 07/27/2024 SPEC #: [id number] RECD: 07/27/24 18:31 STATUS: SO BYNUMJoseph #: [id number] MELISSA: 07/27/24 13:[address]: Felice Ruiz DEPT: SURGICAL PATHOLOGY RECD BY: Megan Best ENTERED: 07/28/24 07:22 SP TYPE: EGD BIOPSY OTHR DR: Dr. Tae Banegas, Tissues: POLYP Procedures: Surgery Specimen Level IV HEADER OPERATION: EGD, biopsy PRE-OP DIAGNOSIS: Atrial fibrillation, anemia TISSUE SUBMITTED: Gastric polyp MICROSCOPIC DIAGNOSIS Gastric polyp, biopsy: Fragments of gastric mucosa with acute and chronic inflammation with minimal changes consistent with hyperplastic/ inflammatory polyp. See comment. 07/31/2024 COMMENT The results of immunohistochemistry for Helicobacter pylori will be reported separately ([id number]). MICROSCOPIC DESCRIPTION Slides are reviewed. GROSS DESCRIPTION Received in fixative is one container labeled with the patient's name and designated Gastric polyp biopsy. The specimen consists of two irregular fragments of light arguello soft tissue that in aggregate measure 0.6 x 0.3 x 0.1 cm. The specimen is totally submitted in one cassette. 07/31/2024 TC:2 CPT:92823
--- NOTE | 2024-07-27 13:26 | PRE.ANES_ITS ---
ASA Classification* ASA Classification ASA Classification: 3 Assessment & Plan Anesthesia* Anesthesia Assessment Anesthesia Assessment: Discussed sedation and/or anesthesia options, risks, benefits, and alternatives with patient/parents/legal guardian/POA. Questions invited. The patient/parents/legal guardian/POA seems to understand and agrees to proceed with anesthesia plan. Reviewed the physical assessment, medical history, allergy history and patient home medications list prior to surgery/procedure/anesthetic and documented any changes. Performed airway and anesthesia risk assessments. Anesthesia Type Anesthesia Type: MAC History Source History Obtained from:: Patient and Chart Anesthesia Focused Assessment* Temperature: 97.5 F Pulse Rate: 55 Blood Pressure: 176/95 Respiratory Rate: 16 Pulse Ox: 99 Airway Assessment Mouth opens: >3 cm Mallampati Score: II Focused Labs Anesthesia Preop lab: CBC WBC 7.8 K/mm3 (4.4-11.0) 07/21/24 05:10 RBC 2.63 M/mm3 (4.2-5.4) L 07/21/24 05:10 Hgb 10.6 g/dL (12.0-15.0) L 07/26/24 05:49 Hct 34.3 % (37-47) L 07/26/24 05:49 Plt Count 156 K/mm3 (150-450) 07/21/24 05:10 CHEMISTRY Potassium 4.3 mmol/L (3.5-5.1) 07/21/24 05:10 Sodium 137 mmol/L (136-145) 07/21/24 05:10 Magnesium 1.4 mg/dL (1.6-2.6) L 06/02/24 08:31 Phosphorus 3.4 mg/dL (2.5-4.9) 01/02/21 06:46 BUN 32 mg/dL (7-18) H 07/21/24 05:10 Creatinine 1.20 mg/dL (0.55-1.02) H 07/21/24 05:10 Glucose 135 mg/dL (74-106) H 07/21/24 05:10 POC Glucose 154 mg/dL (74-106) H 07/27/24 06:13 TSH 2.18 uIU/mL (0.358-3.74) 06/08/15 12:52 COAG PT 13.1 SECONDS (11.7-14.9) 03/29/19 12:44 Pre-Assessment Diagnosis/Proposed Procedure Planned Operative Procedure(s): EGD Anesthesia History Anesthesia History - special agent secret service: Anesthesia History - special agent secret service Hx Hospitalization Yes 07/27/24 12:49 Any Problems With Anesthesia No 07/27/24 12:49 Cholinesterase deficiency No 07/27/24 12:49 You/Your Family Experience No 07/27/24 12:49 fever (hyperthermia) with Relationship Recent Exposure to Contagious No 07/27/24 12:49 Disease Does patient have nerve No 07/27/24 12:49 stimulator Patient instructed to have device shut off --Does patient have Pacemaker No 07/27/24 12:49 or ICD? When Was Last Pacemaker Check QUESTION #4 FULL TEXT: You/Your Family Experience fever (hyperthermia) with Anesthesia Last Oral Intake Last Oral intake: Last Oral Intake NPO since 10:25 07/27/24 12:49 Meds taken in AM with sips of Yes 07/27/24 12:49 water? Meds patient instructed to MIRAPEX, NEURONTIN, TYLENOL, 07/27/24 12:49 take am of surgery PROTONIX, BUSPAR, FLUCONAZOLE, TOPROL, ZOLOFT, OXYCODONE PONV PONV - special agent secret service: PONV - special agent secret service Female Yes 07/27/24 12:49 HX of Motion Sickness No 07/27/24 12:49 HX of N/V After Surgery Yes 07/27/24 12:49 Non-Smoker Yes 07/27/24 12:49 Duration of Surgery greater No 07/27/24 12:49 than 60 minutes Number of Risk Factors 3 07/27/24 12:49 PONV Score Moderate Risk 07/27/24 12:49 Height & Weight Height & Weight: Anesthesia: Height & Weight Height 5 ft 8 in 07/27/24 12:49 Weight: 83.915 kg 07/27/24 12:49 Body Mass Index (BMI) 28.1 07/27/24 12:49 Respiratory Assessment Respiratory Assessment - special agent secret service: Respiratory Tract Infection Hx - special agent secret service Hx Respiratory Tract Infection No 07/27/24 12:49 STOP Sleep Apnea STOP Sleep Apnea - special agent secret service: STOP Sleep Apnea - [employer] agent [employer] service Hx Hypertension Yes 07/27/24 12:49 Hx Sleep Apnea No 07/27/24 12:49 CPAP No 07/18/24 13:06 BIPAP No 07/03/24 08:42 Do you snore loudly (louder Yes 07/27/24 12:49 than talking or can be heard Do you often feel tired/ Yes 07/27/24 12:49 fatigued/ sleepy during daytime? Has anyone observed you stop Yes 07/27/24 12:49 breathing during sleep? STOP Results Positive 07/27/24 12:49 QUESTION #5 FULL TEXT : Do you snore loudly (louder than talking or can be heard through closed doors)? 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 Specify any problems Hx of Preganancy in last 3 No 07/27/24 12:49 Months Nurse Filling Out Transfusion VERNON 07/27/24 12:49 & Questions: Date: 07/27/24 07/27/24 12:49 Time: 12:52 07/27/24 12:49 Patient unable to answer at this time (ie. confused, unrespo /Reproduction History /Reproductive History - special agent secret service: /Reproductive Hx- special agent secret service Hx Now No 07/27/24 12:49 Gestational Age (in weeks): EDC: Hx Hx Para Hx Section SAB No 07/03/24 08:42 Active Medications Active Medications: Current Medications Generic Name Dose Route Start Last Admin Trade Name Freq PRN Reason Stop Dose Admin Lactated Ringer's 1,000 mls @ 15 mls/hr 07/27/24 12:30 07/27/24 13:08 IV 15 mls/hr .Q48H MOI Administration PFSH Medical History History of stress test Wears glasses Wears dentures Cancer Depression Insulin dependent diabetes mellitus Walker as ambulation aid Arthritis Fatty liver High cholesterol Restless legs History of hiatal hernia Shortness of breath on exertion Former smoker Asthma COPD (chronic obstructive pulmonary disease) Leg cramps History of echocardiogram History of stress test Cardiology follow-up encounter History of atrial fibrillation Fracture of right femur Hyperglycemia due to type 1 diabetes mellitus Acute dehydration Chronic atrial fibrillation with rapid ventricular response Cyclic vomiting syndrome Hypomagnesemia NPDR (nonproliferative diabetic retinopathy) Chronic vomiting Peripheral vascular occlusive disease Anxiety Renal cell carcinoma Atherosclerosis of coronary artery of [place] heart without angina pectoris Essential (primary) hypertension Gastro-esophageal reflux disease without esophagitis Peripheral neuropathy Chronic kidney disease, stage 3 Mild chronic obstructive pulmonary disease Type II diabetes mellitus Home Medications ?Medication ?Instructions ?Recorded ?Last Taken ?Type atorvastatin 80 mg tablet 80 mg PO DAILY cholesterol 07/31/17 07/17/24 History insulin human U-100 NPH-regulr 22 unit SQ BID diabetes 07/31/17 07/17/24 History 70-30 mix 100 unit/mL subcutaneous susp ondansetron HCl 8 mg tablet 8 mg PO Q8H PRN PRN 01/06/21 Unknown Rx Nausea/Vomiting #15 tabs esomeprazole magnesium 40 mg 40 mg PO DAILY gerd 07/07/21 07/17/24 History capsule,delayed release rivaroxaban 20 mg tablet (Xarelto) 20 mg PO DAILY a fib 07/07/21 07/15/24 History sertraline 100 mg tablet 100 mg PO DAILY depression 07/07/21 07/17/24 History buspirone 10 mg tablet 10 mg PO DAILY cyclic vommitting 09/28/23 07/17/24 History gabapentin 300 mg capsule 300 mg PO TID cyclic vomitting 09/28/23 07/17/24 History pantoprazole 40 mg tablet,delayed 40 mg PO BID cyclic vomiting 09/28/23 07/17/24 History release metoprolol succinate 100 mg 100 mg PO DAILY irreg. heart beat 03/24/24 07/17/24 History tablet,extended release 24 hr ropinirole 5 mg tablet 5 mg PO TID restless legs 03/24/24 07/17/24 History sucralfate 1 gram tablet 1 g PO 4X/DAY PRN gerd 03/24/24 Unknown History acetaminophen 500 mg tablet 1,000 mg (2 x 500 mg) PO Q8 #0 tabs 07/25/24 Unknown Rx methocarbamol 750 mg tablet 750 mg PO 4X/DAY PRN spasms/pain 07/25/24 Unknown Rx 30 days #120 tabs oxycodone 5 mg tablet 5 mg PO Q4H PRN PRN Pain Score 07/25/24 Unknown Rx 1-10 Or Pre Pt/Ot 7 days #42 tabs sennosides 8.6 mg-docusate sodium 2 tab PO BID 30 days #120 tabs 07/25/24 Unknown Rx 50 mg tablet (Stimulant Laxative Plus) Allergy/AdvReac Type Severity Reaction Status Date / Time diphenhydramine HCl (From AdvReac restless Verified 07/27/24 12:48 Benadryl) legs dofetilide AdvReac LONG QT Verified 07/27/24 12:48 haloperidol (From Haldol) AdvReac Other Verified 07/27/24 12:48 metoclopramide (From Reglan) AdvReac restless Verified 07/27/24 12:48 legs Family History Mother Cancer Stomach Father Colon cancer Heart disease Sister Colon cancer Surgical History History of bladder repair surgery History of cardiac catheterization (~11/2023) History of angioplasty of peripheral vessel (07/2013) History of cholecystectomy (08/2019) History of radiofrequency ablation procedure for cardiac arrhythmia (03/19/16) History of cardioversion (2014) History of open reduction and internal fixation (ORIF) procedure H/O laminectomy History of colonoscopy H/O coronary artery bypass surgery (01/29/03) History of hysterectomy (1995) History of esophagogastroduodenoscopy (EGD) (01/2018) History of partial nephrectomy Social History household members: none Smoking Status: Former smoker pack-years: 40 how long ago did patient quit smokin alcohol intake: never substance use type: does not use caffeine: Yes (Occasionally) Type: carbonated beverages Review of Systems (Anesthesia) ROS Narrative System reviewed and no additional complaints, except as documented.
--- NOTE | 2024-07-27 13:28 | PCM.PRE.AN2 ---
ASA Classification* ASA Classification ASA Classification: 2 Assessment & Plan Anesthesia* Anesthesia Assessment Anesthesia Assessment: Discussed sedation and/or anesthesia options, risks, benefits, and alternatives with patient/parents/legal guardian/POA. Questions invited. The patient/parents/legal guardian/POA seems to understand and agrees to proceed with anesthesia plan. Reviewed the physical assessment, medical history, allergy history and patient home medications list prior to surgery/procedure/anesthetic and documented any changes. Performed airway and anesthesia risk assessments. Anesthesia Type Anesthesia Type: MAC (see written pre anesthesia record for full assessment ) Anesthesia Focused Assessment* Temperature: 97.5 F Pulse Rate: 55 Blood Pressure: 176/95 Respiratory Rate: 16 Pulse Ox: 99 Airway Assessment Mouth opens: >3 cm Mallampati Score: II Focused Labs Anesthesia Preop lab: CBC WBC 7.8 K/mm3 (4.4-11.0) 07/21/24 05:10 RBC 2.63 M/mm3 (4.2-5.4) L 07/21/24 05:10 Hgb 10.6 g/dL (12.0-15.0) L 07/26/24 05:49 Hct 34.3 % (37-47) L 07/26/24 05:49 Plt Count 156 K/mm3 (150-450) 07/21/24 05:10 CHEMISTRY Potassium 4.3 mmol/L (3.5-5.1) 07/21/24 05:10 Sodium 137 mmol/L (136-145) 07/21/24 05:10 Magnesium 1.4 mg/dL (1.6-2.6) L 06/02/24 08:31 Phosphorus 3.4 mg/dL (2.5-4.9) 01/02/21 06:46 BUN 32 mg/dL (7-18) H 07/21/24 05:10 Creatinine 1.20 mg/dL (0.55-1.02) H 07/21/24 05:10 Glucose 135 mg/dL (74-106) H 07/21/24 05:10 POC Glucose 154 mg/dL (74-106) H 07/27/24 06:13 TSH 2.18 uIU/mL (0.358-3.74) 06/08/15 12:52 COAG PT 13.1 SECONDS (11.7-14.9) 03/29/19 12:44 Pre-Assessment Diagnosis/Proposed Procedure Planned Operative Procedure(s): EGD Anesthesia History 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 When Was Last Pacemaker Check QUESTION #4 FULL TEXT: You/Your Family Experience fever (hyperthermia) with Anesthesia Last Oral Intake Last Oral intake: Last Oral Intake NPO since 10:25 07/27/24 12:49 Meds taken in AM with sips of Yes 07/27/24 12:49 water? 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 Female Yes 07/27/24 12:49 HX of Motion Sickness No 07/27/24 12:49 HX of N/V After Surgery Yes 07/27/24 12:49 Non-Smoker Yes 07/27/24 12:49 Duration of Surgery greater No 07/27/24 12:49 than 60 minutes Number of Risk Factors 3 07/27/24 12:49 PONV Score Moderate Risk 07/27/24 12:49 Height & Weight Height & Weight: Anesthesia: Height & Weight Height 5 ft 8 in 07/27/24 12:49 Weight: 83.915 kg 07/27/24 12:49 Body Mass Index (BMI) 28.1 07/27/24 12:49 Respiratory Assessment Respiratory Assessment - impact hammer operator: Respiratory Tract Infection Hx - impact hammer operator Hx Respiratory Tract Infection No 07/27/24 12:49 STOP Sleep Apnea STOP Sleep Apnea - impact hammer operator: STOP Sleep Apnea - impact hammer operator Hx Hypertension Yes 07/27/24 12:49 Hx Sleep Apnea No 07/27/24 12:49 CPAP No 07/18/24 13:06 BIPAP No 07/03/24 08:42 Do you snore loudly (louder Yes 07/27/24 12:49 than talking or can be heard Do you often feel tired/ Yes 07/27/24 12:49 fatigued/ sleepy during daytime? Has anyone observed you stop Yes 07/27/24 12:49 breathing during sleep? STOP Results Positive 07/27/24 12:49 QUESTION #5 FULL TEXT : Do you snore loudly (louder than talking or can be heard through closed doors)? 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 Specify any problems Hx of Preganancy in last 3 No 07/27/24 12:49 Months Nurse Filling Out Transfusion VERNON 07/27/24 12:49 & Questions: Date: 07/27/24 07/27/24 12:49 Time: 12:52 07/27/24 12:49 Patient unable to answer at this time (ie. confused, unrespo /Reproduction History /Reproductive History - impact hammer operator: /Reproductive Hx- impact hammer operator Hx Now No 07/27/24 12:49 Gestational Age (in weeks): EDC: Hx Hx Para Hx Section SAB No 07/03/24 08:42 Active Medications Active Medications: Current Medications Generic Name Dose Route Start Last Admin Trade Name Freq PRN Reason Stop Dose Admin Lactated Ringer's 1,000 mls @ 15 mls/hr 07/27/24 12:30 07/27/24 13:08 IV 15 mls/hr .Q48H MOI Administration PFSH Medical History History of stress test Wears glasses Wears dentures Cancer Depression Insulin dependent diabetes mellitus Walker as ambulation aid Arthritis Fatty liver High cholesterol Restless legs History of hiatal hernia Shortness of breath on exertion Former smoker Asthma COPD (chronic obstructive pulmonary disease) Leg cramps History of echocardiogram History of stress test Cardiology follow-up encounter History of atrial fibrillation Fracture of right femur Hyperglycemia due to type 1 diabetes mellitus Acute dehydration Chronic atrial fibrillation with rapid ventricular response Cyclic vomiting syndrome Hypomagnesemia NPDR (nonproliferative diabetic retinopathy) Chronic vomiting Peripheral vascular occlusive disease Anxiety Renal cell carcinoma Atherosclerosis of coronary artery of [place] heart without angina pectoris Essential (primary) hypertension Gastro-esophageal reflux disease without esophagitis Peripheral neuropathy Chronic kidney disease, stage 3 Mild chronic obstructive pulmonary disease Type II diabetes mellitus Home Medications ?Medication ?Instructions ?Recorded ?Last Taken ?Type atorvastatin 80 mg tablet 80 mg PO DAILY cholesterol 07/31/17 07/17/24 History insulin human U-100 NPH-regulr 22 unit SQ BID diabetes 07/31/17 07/17/24 History 70-30 mix 100 unit/mL subcutaneous susp ondansetron HCl 8 mg tablet 8 mg PO Q8H PRN PRN 01/06/21 Unknown Rx Nausea/Vomiting #15 tabs esomeprazole magnesium 40 mg 40 mg PO DAILY gerd 07/07/21 07/17/24 History capsule,delayed release rivaroxaban 20 mg tablet (Xarelto) 20 mg PO DAILY a fib 07/07/21 07/15/24 History sertraline 100 mg tablet 100 mg PO DAILY depression 07/07/21 07/17/24 History buspirone 10 mg tablet 10 mg PO DAILY cyclic vommitting 09/28/23 07/17/24 History gabapentin 300 mg capsule 300 mg PO TID cyclic vomitting 09/28/23 07/17/24 History pantoprazole 40 mg tablet,delayed 40 mg PO BID cyclic vomiting 09/28/23 07/17/24 History release metoprolol succinate 100 mg 100 mg PO DAILY irreg. heart beat 03/24/24 07/17/24 History tablet,extended release 24 hr ropinirole 5 mg tablet 5 mg PO TID restless legs 03/24/24 07/17/24 History sucralfate 1 gram tablet 1 g PO 4X/DAY PRN gerd 03/24/24 Unknown History acetaminophen 500 mg tablet 1,000 mg (2 x 500 mg) PO Q8 #0 tabs 07/25/24 Unknown Rx methocarbamol 750 mg tablet 750 mg PO 4X/DAY PRN spasms/pain 07/25/24 Unknown Rx 30 days #120 tabs oxycodone 5 mg tablet 5 mg PO Q4H PRN PRN Pain Score 07/25/24 Unknown Rx 1-10 Or Pre Pt/Ot 7 days #42 tabs sennosides 8.6 mg-docusate sodium 2 tab PO BID 30 days #120 tabs 07/25/24 Unknown Rx 50 mg tablet (Stimulant Laxative Plus) Allergy/AdvReac Type Severity Reaction Status Date / Time diphenhydramine HCl (From AdvReac restless Verified 07/27/24 12:48 Benadryl) legs dofetilide AdvReac LONG QT Verified 07/27/24 12:48 haloperidol (From Haldol) AdvReac Other Verified 07/27/24 12:48 metoclopramide (From Reglan) AdvReac restless Verified 07/27/24 12:48 legs Family History Mother Cancer Stomach Father Colon cancer Heart disease Sister Colon cancer Surgical History History of bladder repair surgery History of cardiac catheterization (~11/2023) History of angioplasty of peripheral vessel (07/2013) History of cholecystectomy (08/2019) History of radiofrequency ablation procedure for cardiac arrhythmia (03/19/16) History of cardioversion (2014) History of open reduction and internal fixation (ORIF) procedure H/O laminectomy History of colonoscopy H/O coronary artery bypass surgery (01/29/03) History of hysterectomy (1995) History of esophagogastroduodenoscopy (EGD) (01/2018) History of partial nephrectomy Social History household members: none Smoking Status: Former smoker pack-years: 40 how long ago did patient quit smokin alcohol intake: never substance use type: does not use caffeine: Yes (Occasionally) Type: carbonated beverages Review of Systems (Anesthesia) ROS Narrative System reviewed and no additional complaints, except as documented.
--- NOTE | 2024-07-27 13:44 | OP.EGD_ITS ---
Patient Name: Brigitte Ham Procedure Date: 07/27/2024 1:26 PM Date of : 1950 Age: 74 Procedure: Upper GI endoscopy Indications: Iron deficiency anemia Providers: Felice Ruiz DO Medicines: Monitored Anesthesia Care Patient Profile: This is a 74 year old female. Refer to note in patient chart for documentation of history and physical. Patient has symptoms. Complications: No immediate complications. Procedure: Pre-Anesthesia Assessment: - Prior to the procedure, a History and Physical was performed, and patient medications and allergies were reviewed. The patient is competent. The risks and benefits of the procedure and the sedation options and risks were discussed with the patient. All questions were answered and informed consent was obtained. Patient identification and proposed procedure were verified by the physician in the pre-procedure area. Mental Status Examination: alert and oriented. Airway Examination: normal oropharyngeal airway and neck mobility. Respiratory Examination: clear to auscultation. CV Examination: normal. Prophylactic Antibiotics: The patient does not require prophylactic antibiotics. Prior Anticoagulants: The patient has taken no anticoagulant or antiplatelet agents. ASA Grade Assessment: III - A patient with severe systemic disease. After reviewing the risks and benefits, the patient was deemed in satisfactory condition to undergo the procedure. The anesthesia plan was to use monitored anesthesia care (MAC). Immediately prior to administration of medications, the patient was re-assessed for adequacy to receive sedatives. The heart rate, respiratory rate, oxygen saturations, blood pressure, adequacy of pulmonary ventilation, and response to care were monitored throughout the procedure. The physical status of the patient was re-assessed after the procedure. After obtaining informed consent, the endoscope was passed under direct vision. Throughout the procedure, the patient's blood pressure, pulse, and oxygen saturations were monitored continuously. The Endoscope was introduced through the mouth, and advanced to the second part of duodenum. The upper GI endoscopy was accomplished without difficulty. The patient tolerated the procedure well. Scope In: 1:36:50 PM Scope Out: 1:40:18 PM Total Procedure Duration Time 0 hours 3 minutes 28 seconds Findings: The examined esophagus was normal. A medium-sized hiatal hernia was present. A small amount of food (residue) was found in the gastric fundus. One non-bleeding superficial gastric ulcer with no stigmata of bleeding was found in the gastric antrum. The lesion was 6 mm in largest dimension. A single 5 mm sessile polyp with no bleeding and no stigmata of recent bleeding was found in the gastric antrum. The polyp was removed with a jumbo cold forceps. Polyp resection was incomplete. The resected tissue was retrieved. Verification of patient identification for the specimen was done. Estimated blood loss was minimal. No gross lesions were noted in the second portion of the duodenum. Impression: - Normal esophagus. - Medium-sized hiatal hernia. - A small amount of food (residue) in the stomach. - Non-bleeding gastric ulcer with no stigmata of bleeding. - A single gastric polyp. Incomplete resection. Resected tissue retrieved. - No gross lesions in the second portion of the duodenum. Recommendation: - Return patient to referring hospital for ongoing care. - Resume previous diet. - Continue present medications. - Await pathology results so the polyp came room be removed. - Colonoscopy as an outpatient. Procedure Code(s): --- Professional --- 72401, Esophagogastroduodenoscopy, flexible, transoral; with biopsy, single or multiple CPT copyright 2021 [employer]. All rights reserved. The codes documented in this report are preliminary and upon elementary school principal review may be revised to meet current compliance requirements. Felice Ruiz DO 07/27/2024 1:44:45 PM This report has been signed electronically. Number of Addenda: 0 Note Initiated On: 07/27/2024 1:26 PM
--- NOTE | 2024-07-27 13:45 | OP.CCLET_ITS ---
07/27/2024 Tae Banegas [address] [place] [address] Re : Upper GI endoscopy procedure for Brigitte Jitendra Dear Dr. Banegas This procedure was performed on July. My impressions and recommendations are as follows: Impressions : - Normal esophagus. - Medium-sized hiatal hernia. - A small amount of food (residue) in the stomach. - Non-bleeding gastric ulcer with no stigmata of bleeding. - A single gastric polyp. Incomplete resection. Resected tissue retrieved. - No gross lesions in the second portion of the duodenum. Recommendations : - Return patient to referring hospital for ongoing care. - Resume previous diet. - Continue present medications. - Await pathology results so the polyp came room be removed. - Colonoscopy as an outpatient. My findings are described in the full procedure note, which is enclosed. If I can be of further assistance, please feel free to contact me at . Sincerely, Felice Ruiz, 07/27/2024 1:44:45 PM This report has been signed electronically.
--- NOTE | 2024-07-27 13:48 | PCM.POST.ANE ---
Anesthesia: Postop Eval I Current Vital Signs Temperature: 97.7 F Pulse Rate: 74 Blood Pressure: 155/73 Respiratory Rate: 16 Pulse Ox: 100 Oxygen Delivery Method: Room Air Assessment Airway patent: Yes Spontaneous unlabored respirations: Yes Mental status: Asleep nausea: No Vomiting: No Anesthesia Complication: No Fluid Hydration Crystalloid volume administer (ml): 400 Total IV fluid infused: 400 Progress Note Anesthesia document: Postop Eval 1 completed: Yes
--- NOTE | 2024-07-27 13:52 | PCM.POSTANE2 ---
Anesthesia Postop Eval I Sum Postop Eval Completion status Anesthesia document: Postop Eval 1 completed: Yes Anesthesia Postop Eval I Summary Anesthesia Postop Eval I Summary: Anesthesia Postop Eval I: Assessment Summary Airway patent Yes 07/27/24 13:49 [email or web address] Spontaneous unlabored Yes 07/27/24 13:49 [email or web address] respirations Mental status Asleep 07/27/24 13:49 [email or web address] nausea No 07/27/24 13:49 [email or web address] Vomiting No 07/27/24 13:49 [email or web address] Anesthesia Postop Eval I: Fluid Summary Crystalloid volume administer 400 07/27/24 13:49 [email or web address] (ml) Colloids volume administered ( ml) Blood Product volume administered (ml) Total IV fluid infused 400 07/27/24 13:49 [email or web address] Anesthesia Postop Eval I: Summary Notes Anesthesia Complication No 07/27/24 13:49 [email or web address] Anesthesia Complication Comment: Post-operative progress note Anesthesia: Postop Eval II Evaluation Mental status: Awake Pain Level: 0 nausea: No Vomiting: No
== END 2024-07-27 23:00 | disposition home or self-care (01) ==
LOC: EN 01-24 21:40
PROVIDERS: PCP Student in an Organized Health Care Education/Training Program; Referring Provider Student in an Organized Health Care Education/Training Program; Visit Provider Internal Medicine Gastroenterology
PROC: 0DJ08ZZ Inspection of Upper Intestinal Tract, Via Natural or Artificial Opening Endoscopic (ICD-10-PCS; CPT 43235; principal; 2024-07-27 13:10)
DX: D50.9 Iron deficiency anemia, unspecified (principal); J44.9 Chronic obstructive pulmonary disease, unspecified; I48.0 Paroxysmal atrial fibrillation; E11.51 Type 2 diabetes mellitus with diabetic peripheral angiopathy without gangrene; Z79.4 Long term (current) use of insulin; E11.22 Type 2 diabetes mellitus with diabetic chronic kidney disease; N18.30 Chronic kidney disease, stage 3 unspecified; K25.9 Gastric ulcer, unspecified as acute or chronic, without hemorrhage or perforation; K31.7 Polyp of stomach and duodenum; K44.9 Diaphragmatic hernia without obstruction or gangrene; I25.10 Atherosclerotic heart disease of native coronary artery without angina pectoris; I12.9 Hypertensive chronic kidney disease with stage 1 through stage 4 chronic kidney disease, or unspecified chronic kidney disease; Z90.5 Acquired absence of kidney; Z95.1 Presence of aortocoronary bypass graft; Z79.01 Long term (current) use of anticoagulants; Z79.899 Other long term (current) drug therapy; Z87.891 Personal history of nicotine dependence
CPT/HCPCS: 43239; 88305; 88342

== ENCOUNTER 2024-10-10 16:51 | Inpatient (IN) | payer MEDICARE, SELFPAY ==
[2024-10-10 16:52] VITALS: BP 124/60; PULSE 63; RESP 17; TEMP 36.1; O2SAT 96
--- NOTE | 2024-10-10 16:58 | EKG12_ITS ---
Test Reason : Blood Pressure : */* mmHG Vent. Rate : 61 BPM Atrial Rate : 61 BPM P-R Int : 172 ms QRS Dur : 90 ms QT Int : 456 ms P-R-T Axes : 67 41 9 degrees QTcB Int : 459 ms Sinus rhythm with marked sinus arrhythmia RSR' or QR pattern in V1 suggests right ventricular conduction delay Borderline ECG Confirmed by ALEXANDRA HUMPHREY, EMY ([id number]), film and video editor EFRAIN WALLACE ([id number]) on 10/11/2024 8:19:47 AM Referred By: Confirmed By: EMY MORRIS MD
[2024-10-10 17:05] VITALS: BMI 29.9
[2024-10-10 17:28] LABS: Absolute Lymphocyte Count 1.77 X10^3/uL (0.83-4.51); Absolute Neutrophil Count 4.5 X10^3/uL (2.0-7.7); Basophil# 0.03 X10^3/uL; Basophil% 0.4 % (0-1); Eosinophil# 0.14 X10^3/uL; Hematocrit 32.7 % (37-47); Hemoglobin 10.2 g/dL (12.0-15.0); Lymphocyte # 1.77 X10^3/ul (0.83-4.51); Lymphocyte % 25.4 % (19-41); Mean Corp Hgb Conc 31.2 g/dL (32-36); Mean Corpuscular Hgb 28.6 pg (27.0-32.0); Mean Corpuscular Volume 91.6 fL (81-99); Mean Platelet Vol. 9.5 fl (6.2-12.0); Monocyte# 0.53 X10^3/uL; Monocyte% 7.6 % (0-10); NRBC Flagged by Analyzer 0 % (0-5); Neutrophil # 4.46 X10^3/uL (2.7-7.7); Neutrophil % 64.2 % (47-70); Platelet Count 179 K/mm3 (150-450); RBC Distribution Width CV 13.6 % (11.6-14.6); RBC Distribution Width SD 45.7 fl (35.1-43.9); Red Blood Count 3.57 M/mm3 (4.2-5.4)
[2024-10-10 17:49] LABS: ALB/GLOB Ratio 1.2 RATIO (0.9-2.4); AST(SGOT) 18 U/L (15-37); Alanine Aminotransfer ALT/SGPT 23 U/L (13-56); Albumin, Serum 3.4 g/dL (3.2-5.0); Alkaline Phosphatase 98 U/L (45-117); Anion Gap 5 (5-15); BUN 25 mg/dL (7-18); BUN/Creat Ratio 26.3 RATIO (10-20); Calcium,Total 8.5 mg/dL (8.5-10.1); Chloride 114 mmol/L (98-107); Creatinine, Serum 0.95 mg/dL (0.55-1.02); EST Glomerular Filtration Rate 61 mL/min (>60); Est Glom Filt Rate - Afr Amer 74 mL/min (>60); Estimated Creatinine Clearance 62.58 ml/min; Globulin 2.9 g/dL (2.2-4.2); Glucose 181 mg/dL (74-106); Lipase 50 U/L (13-75); Potassium 4.6 mmol/L (3.5-5.1); Protein, Total 6.3 g/dL (6.4-8.2); Sodium Level 142 mmol/L (136-145)
[2024-10-10 17:50] LABS: International Normalized Ratio 1.6; Prothrombin Time (Protime)PT. 19.2 SECONDS (11.7-14.9)
--- NOTE | 2024-10-10 17:51 | CT_ITS ---
STUDY: CT ABDOMEN AND PELVIS WITH CONTRAST REASON FOR EXAM: Female, 74 years old. llq pain RADIATION DOSAGE (If Supplied By Facility): CTDIvol = ( 23.78 ) mGy, DLP = ( 1255.34 ) mGycm TECHNIQUE: Transaxial images were obtained from the dome of the diaphragm to the symphysis pubis without oral contrast. IV 100mL Isovue-370 was administered. Sagittal and coronal images were reconstructed. Individualized dose optimization techniques were used for this CT. COMPARISON: January 01, 2021. FINDINGS: Mild chronic bibasilar interstitial thickening. Postsurgical changes status post CABG Small hiatal hernia is noted Normal liver. Gallbladder not visualized status post cholecystectomy. Normal spleen. Normal pancreas. Normal bilateral adrenal glands. There is a simple cortical cyst and a parapelvic cyst in the right kidney. There is also postsurgical change posteriorly status post resection of renal cell carcinoma as per clinical history.. Normal left kidney. Normal visualized stomach. No evidence for small bowel obstruction. There is hypoattenuated density within one of the loops of the small bowel in the left lower quadrant on image 78/128 sequence 2 of uncertain etiology possibly representing ingested material although cannot definitively exclude intraluminal hemorrhage. There is diffuse fecal retention seen throughout the colon.. Minimal diverticular disease of the colon without evidence for acute diverticulitis No evidence for acute appendicitis Atherosclerotic change of the aorta without evidence for aneurysm Normal inferior vena cava. Normal retroperitoneum. Normal urinary bladder. Postop change status post hysterectomy Normal abdominal wall. Old healed fracture of left inferior pubis. Postsurgical changes of the right hip with indwelling orthopedic hardware. Lumbar spine demonstrates degenerative changes and postsurgical changes status post bilateral laminectomy and posterior fusion at L3-4 and L4-5 CT/Abdomen/Pelvis W IV Cont ONLY IMPRESSION: No evidence for small bowel obstruction. No evidence for acute diverticulitis. Cannot definitively exclude subtle intraluminal hemorrhage within a loop of small bowel in the left lower quadrant. Radionuclide tagged red blood cell study would be helpful for further evaluation if clinically warranted. Status post cholecystectomy partial right nephrectomy and hysterectomy Electronically Signed: Mark Alonso MD at 18:59 EST ,
[2024-10-10 17:52] LABS: Partial Thromboplast Time 43.4 Seconds (24.1-36.2)
--- NOTE | 2024-10-10 18:30 | EX.ED.DYSGE1 ---
HPI History of Present Illness Chief Complaint: GI Bleed Narrative Narrative: Patient is a 74-year-old female with past medical history of depression, diabetes insulin-dependent, hypercholesterolemia, COPD, atrial fibrillation on Xarelto, chronic kidney disease, hypertension who presents to the emergency department with a chief complaint of having bright red blood in her stool earlier today around 3:00 this afternoon. She states that she had a bowel movement and noted that there was bright red blood in her stool she called the nursing line through her primary care physician who advised her to come here to the emergency department for evaluation management. Patient states that otherwise she had been feeling well. Patient states that she has not had any more bloody bowel movements prior to her arrival here. States that she has been compliant with her medications not missing doses. [facility] Medical History History of stress test Wears glasses Wears dentures Cancer Depression Insulin dependent diabetes mellitus Walker as ambulation aid Arthritis Fatty liver High cholesterol Restless legs History of hiatal hernia Shortness of breath on exertion Former smoker Asthma COPD (chronic obstructive pulmonary disease) Leg cramps History of echocardiogram History of stress test Cardiology follow-up encounter History of atrial fibrillation Fracture of right femur Hyperglycemia due to type 1 diabetes mellitus Acute dehydration Chronic atrial fibrillation with rapid ventricular response Cyclic vomiting syndrome Hypomagnesemia NPDR (nonproliferative diabetic retinopathy) Chronic vomiting Peripheral vascular occlusive disease Anxiety Renal cell carcinoma Atherosclerosis of coronary artery of [place] heart without angina pectoris Essential (primary) hypertension Gastro-esophageal reflux disease without esophagitis Peripheral neuropathy Chronic kidney disease, stage 3 Mild chronic obstructive pulmonary disease Type II diabetes mellitus Home Medications ?Medication ?Instructions ?Recorded ?Last Taken ?Type atorvastatin 80 mg tablet 80 mg PO DAILY cholesterol 07/31/17 07/17/24 History insulin human U-100 NPH-regulr 22 unit SQ BID diabetes 07/31/17 07/17/24 History 70-30 mix 100 unit/mL subcutaneous susp ondansetron HCl 8 mg tablet 8 mg PO Q8H PRN PRN 01/06/21 Unknown Rx Nausea/Vomiting #15 tabs esomeprazole magnesium 40 mg 40 mg PO DAILY gerd 07/07/21 07/17/24 History capsule,delayed release rivaroxaban 20 mg tablet (Xarelto) 20 mg PO DAILY a fib 07/07/21 07/15/24 History sertraline 100 mg tablet 100 mg PO DAILY depression 07/07/21 07/17/24 History buspirone 10 mg tablet 10 mg PO DAILY cyclic vommitting 09/28/23 07/17/24 History gabapentin 300 mg capsule 300 mg PO TID cyclic vomitting 09/28/23 07/17/24 History pantoprazole 40 mg tablet,delayed 40 mg PO BID cyclic vomiting 09/28/23 07/17/24 History release metoprolol succinate 100 mg 100 mg PO DAILY irreg. heart beat 03/24/24 07/17/24 History tablet,extended release 24 hr ropinirole 5 mg tablet 5 mg PO TID restless legs 03/24/24 07/17/24 History sucralfate 1 gram tablet 1 g PO 4X/DAY PRN gerd 03/24/24 Unknown History acetaminophen 500 mg tablet 1,000 mg (2 x 500 mg) PO Q8 #0 tabs 07/25/24 Unknown Rx methocarbamol 750 mg tablet 750 mg PO 4X/DAY PRN spasms/pain 07/25/24 Unknown Rx 30 days #120 tabs oxycodone 5 mg tablet 5 mg PO Q4H PRN PRN Pain Score 07/25/24 Unknown Rx 1-10 Or Pre Pt/Ot 7 days #42 tabs sennosides 8.6 mg-docusate sodium 2 tab PO BID 30 days #120 tabs 07/25/24 Unknown Rx 50 mg tablet (Stimulant Laxative Plus) Allergy/AdvReac Type Severity Reaction Status Date / Time diphenhydramine HCl (From AdvReac restless Verified 10/10/24 16:52 Benadryl) legs dofetilide AdvReac LONG QT Verified 10/10/24 16:52 haloperidol (From Haldol) AdvReac Other Verified 10/10/24 16:52 metoclopramide (From Reglan) AdvReac restless Verified 10/10/24 16:52 legs Family History Mother Cancer Stomach Father Colon cancer Heart disease Sister Colon cancer Surgical History History of bladder repair surgery History of cardiac catheterization (~11/2023) History of angioplasty of peripheral vessel (07/2013) History of cholecystectomy (08/2019) History of radiofrequency ablation procedure for cardiac arrhythmia (03/19/16) History of cardioversion (2014) History of open reduction and internal fixation (ORIF) procedure H/O laminectomy History of colonoscopy H/O coronary artery bypass surgery (01/29/03) History of hysterectomy (1995) History of esophagogastroduodenoscopy (EGD) (01/2018) History of partial nephrectomy Social History household members: none Smoking Status: Former smoker pack-years: 40 how long ago did patient quit smokin alcohol intake: never substance use type: does not use caffeine: Yes (Occasionally) Type: carbonated beverages ROS ROS ED ROS Narrative Constitutional: Denies any fevers, chills, headaches, lightness, dizziness Eyes: Denies change in vision double vision blurry vision Cardiovascular: Denies chest pain or palpitations Respiratory: Denies coughing wheezing shortness of breath Abdomen: Denies any abdominal pain nausea vomiting admits to bright red blood in her stool as noted above : Denies any urinary symptoms Neurological: Denies numbness, weakness, tingling Musculoskeletal: Denies back pain Skin: Denies rashes or lesions EXAM Physical Exam Narrative Exam Narrative: General: Patient lying in bed rest comfortably did not appear to be in acute distress Head: Atraumatic, normocephalic Eyes: PERRL bilateral, EOMI bilateral, no conjunctival injection noted Neck: Soft, supple, trachea midline Cardiovascular: Regular rate and rhythm no murmurs gallops rubs noted Respiratory: Clear to auscultation bilaterally no rales rhonchi or wheeze noted Abdomen: Soft, nondistended, tenderness to palpation in the left lower quadrant no rebound or guarding on exam, bowel sounds present in 4 Extremities: +5/5 strength noted in the bilateral upper and lower extremities, no pedal edema no exam, radial pulses +2/4 in the bilateral upper extremities Neurological: Patient following commands knew that she was at [facility] years 2023 Skin: Warm, dry, intact Const Vital Signs: 10/10/24 16:52 10/10/24 18:52 10/10/24 20:37 Temperature 97 F L 97.8 F Temperature Source Temporal Pulse Rate 63 70 Respiratory Rate 17 18 Blood Pressure 124/60 H 137/45 H 142/64 H Blood Pressure Mean 81 75 90 Pulse Ox 96 97 Oxygen Delivery Method Room Air MDM MDM MDM Narrative Medical decision making narrative: Patient is a 74-year-old female who presents to the emergency department the chief complaint of having bright red blood in her stool earlier today. Once again this was around 1500 and she has not had any further episodes. Patient will have a workup performed here on the differential diagnose includes but not limited to diverticulosis, diverticulitis, hemorrhoids. Once workup is obtained reviewed she will be reevaluated. Patient CBC reviewed and showed no evidence leukocytosis white blood count normal at 7, hemoglobin stable 10.2, platelet count was noted to be 179. Patient's INR was 1.6, PT of 19.2 she is on Xarelto, sodium normal 142, potassium normal 4.6, creatinine normal at 0.95. Patient's AST and ALT were 18 and 23 respectively. Patient lipase normal at 50, urinalysis did not reveal any evidence of infection. Patient CT abdomen pelvis with IV contrast was reviewed and showed no evidence for small bowel obstruction and no evidence for acute diverticulitis. They cannot definitively exclude subtle intraluminal hemorrhage within a loop of the small bowel in the left lower quadrant. Radionucleotide tagged red blood cell study would be helpful for further evaluation if clinically warranted. Status post cholecystectomy partial right nephrectomy and hysterectomy. I called and discussed case with Dr. Ruiz who is advising to admit the patient for further evaluation of her CT finding while on Xarelto. I did do a rectal exam and there was no stool noted in the rectal vault therefore this was not sent down to the lab for studies. I did discuss the results and the plan with the patient she is agreeable this all question concerns answered at bedside. Family member at bedside was updated as well. Lab Data Labs: Laboratory Results - last 24 hr 10/10/24 10/10/24 17:10 18:47 WBC 7.0 RBC 3.57 L Hgb 10.2 L Hct 32.7 L MCV 91.6 MCH 28.6 MCHC 31.2 L RDW Std Deviation 45.7 H RDW Coeff of Ray 13.6 Plt Count 179 MPV 9.5 Immature Gran % (Auto) 0.400 Neut % (Auto) 64.2 Lymph % (Auto) 25.4 [place] % (Auto) 7.6 Eos % (Auto) 2.0 Baso % (Auto) 0.4 Absolute Neuts (auto) 4.5 Absolute Lymphs (auto) 1.77 Nucleated RBC % 0 PT 19.2 H INR 1.6 APTT 43.4 H Sodium 142 Potassium 4.6 Chloride 114 H Carbon Dioxide 23.0 Anion Gap 5 BUN 25 H Creatinine 0.95 Estim Creat Clear Calc 62.58 Est GFR (MDRD) Af Amer 74 Est GFR (MDRD) Non-Af 61 BUN/Creatinine Ratio 26.3 H Glucose 181 H Calcium 8.5 Total Bilirubin 0.40 AST 18 ALT 23 Alkaline Phosphatase 98 Total Protein 6.3 L Albumin 3.4 Globulin 2.9 Albumin/Globulin Ratio 1.2 Lipase 50 Urine Color Yellow Urine Clarity Sl. Cloudy Urine pH 6.0 Ur Specific [place] 1.015 Urine Protein 15 H Urine Glucose (UA) Normal Urine Ketones Negative Urine Occult Blood 10 H Urine Nitrite Negative Urine Bilirubin Negative Urine Urobilinogen Normal Ur Leukocyte Esterase 500 H Urine RBC 0-5 SEEN Urine WBC 0-5 SEEN Ur Squamous Epith Cells 0-5 SEEN Urine Bacteria RARE Urine Mucus 1+ Blood Type A POSITIVE Antibody Screen NEGATIVE Radiography Diagnostic Testing: Clinical Impression(s) from Imaging Studies Abdomen/Pelvis CT 10/10/24 17:51 IMPRESSION: No evidence for small bowel obstruction. No evidence for acute diverticulitis. Cannot definitively exclude subtle intraluminal hemorrhage within a loop of small bowel in the left lower quadrant. Radionuclide tagged red blood cell study would be helpful for further evaluation if clinically warranted. Status post cholecystectomy partial right nephrectomy and hysterectomy Electronically Signed: Mark Alonso MD at 18:59 EST Reading Location ID and State: [facility] / [place] Tel , Service support , Discharge Plan Triage Chief Complaint: GI Bleed ED Provider: Yuval Tejeda Dx/Rx/DC Orders Clinical Impression: GI (gastrointestinal bleed) Prescriptions: No Action buspirone 10 mg tablet 10 mg PO DAILY gabapentin 300 mg capsule 300 mg PO TID pantoprazole 40 mg tablet,delayed release (DR/EC) 40 mg PO BID sucralfate 1 gram tablet 1 g PO 4X/DAY PRN (Reason: gerd) metoprolol succinate 100 mg tablet extended release 24 hr 100 mg PO DAILY ropinirole 5 mg tablet 5 mg PO TID insulin NPH and regular human 100 UNIT/ML suspension 22 unit SQ BID atorvastatin 80 MG tablet 80 mg PO DAILY ondansetron HCl 8 MG tablet 8 mg PO Q8H PRN PRN (Reason: Nausea/Vomiting) Qty: 15 0RF sertraline 100 mg tablet 100 mg PO DAILY esomeprazole magnesium 40 mg capsule,delayed release(DR/EC) 40 mg PO DAILY Patient Comments: TAKE 1 CAPSULE BY MOUTH EVERY DAY 30 MINUTES BEFORE MEAL Xarelto 20 mg tablet 20 mg PO DAILY sennosides-docusate sodium [Stimulant Laxative Plus] 8.6-50 mg Tablet 2 tab PO BID 30 Days Qty: 120 0RF acetaminophen 500 mg Tablet 1,000 mg PO Q8 Qty: 0 0RF methocarbamol 750 mg Tablet 750 mg PO 4X/DAY PRN (Reason: spasms/pain) 30 Days Qty: 120 0RF oxycodone 5 mg Tablet 5 mg PO Q4H PRN PRN (Reason: Pain Score 1-10 Or Pre Pt/Ot) 7 Days Qty: 42 0RF Primary Care Provider: Tae Banegas Referrals: Tae Banegas DO [Primary Care Provider] - Print Language: [place] Disposition Disposition: Acute Care Hospital [facility]
[2024-10-10 18:52] VITALS: BP 137/45
[2024-10-10 19:11] LABS: Color, Urine Yellow (Yellow); Glucose, Dipstick Normal (Normal); Ketone-Dipstick Negative (Negative); Leukocyte Esterase-Dipstick 500 /ul (Negative); Nitrite-Dipstick Negative (Negative); Occult Blood-Urine 10 /ul (Negative); Protein-Dipstick 15 mg/dl (Negative); Specific Gravity, Urine 1.015 (1.002-1.030); Urine Bilirubin Dipstick Negative (Negative); Urine Clarity Sl. Cloudy (Clear); Urine Urobilinogen Normal (Normal)
[2024-10-10 19:35] LABS: Squamous Epithelial Cells - UA 0-5 SEEN /hpf (5-10)
[2024-10-10 19:36] LABS: Bacteria RARE /hpf (None Seen); Mucous, Urine 1+ /hpf (<or=2+); White Blood Cells 0-5 SEEN /hpf (0-5)
[2024-10-10 19:37] LABS: Red Blood Cells-Urine 0-5 SEEN /hpf (0-5)
[2024-10-10 20:37] VITALS: BP 142/64; PULSE 70; RESP 18; TEMP 36.6; O2SAT 97
--- NOTE | 2024-10-10 20:56 | HP.PCM.HOS_ITS ---
[facility] - General General Date of Admission: 10/10/24 Date of Service: 10/10/24 Chief Complaint: BRBPR on Xarelto. HPI Narrative TACOS HAM, is a 74 F with a past medical history of essential hypertension; on Metoprolol, hyperlipidemia, overweight; with BMI of 29.9 this admission, NAFLD, DM-2; of unknown control on NPH and R-insulin, history of nonproliferative diabetic retinopathy, PAF; on Xarelto s/p DCCV (2014) & radiofrequency ablation (2015), listed allergy to Dofetilide (long QT), CAD; s/p CABG x 2 (2002) with subsequent LHC (11/2023) on BASA, PVD; with claudication s/p angioplasty (2012), history of tobacco abuse (quit 2008); with subsequent asthma/COPD, CKD; stage III, history of Renal Cell Carcinoma; s/p partial Right nephrectomy (2014), history of bladder repair surgery, RLS; on Ropinirole, chronic anemia, neuropathic pain; on Gabapentin, depression with anxiety; on Buspirone and Sertraline, listed allergy to Haldol (?), history of cyclic vomiting syndrome; with listed allergy to Reglan and Benadryl (restless legs), GERD with history of Hiatal Hernia; on Sucralfate plus pantoprazole BID, history of cholecystectomy (2018), history of hysterectomy (1995), history of Right femur fracture; s/p ORIF, OA; with DDD and Lumbar Spinal Stenosis with Radiculopathy; s/p Laminectomy and Muscle Spasms and Chronic Back Pain; on Methocarbamol q. 6 h prn plus Oxycodone q. 4h prn and Chronic Debility; with patient using a walker to mobilize who presents to [facility] ER complaining of lower GI bleed with BRBPR. Ms. Ham reports her symptoms began approximately 3:00 PM earlier today with a bloody bowel movement that was bright red. She then called her PCP who recommended she come to the ER for further evaluation and treatment. She denies any further bleeding since that time or recent abdominal injury. She states she has been taking her medications as prescribed and she denies straining at her stools. She also denies associated fever, chills, abdominal pain, nausea, vomiting, constipation, dysuria, paresthesias, headache or rash. In the ER she was noted to have CT evidence of subtle intraluminal hemorrhage within a loop of small bowel in the LLQ with radionuclide tagged RBC scan recommended by radiologist with a hemoglobin of 10.2 g/dL present on admission and no further bleeding noted since admission. The ER physician then spoke with the machine silver stripper on-call who recommended patient be admitted to the hospitalist service and with formal consultation pending in the AM which was done. She was then admitted to the PCU for ongoing care for a stay that is expected to extend beyond 2 midnights. [facility] Medical History (Updated 10/11/24 @ 05:[address] Sudarshan Cedillo, DO) History of stress test Wears glasses Wears dentures Cancer Depression Insulin dependent diabetes mellitus Walker as ambulation aid Arthritis Fatty liver High cholesterol Restless legs History of hiatal hernia Shortness of breath on exertion Former smoker Asthma COPD (chronic obstructive pulmonary disease) Leg cramps History of echocardiogram History of stress test Cardiology follow-up encounter History of atrial fibrillation Fracture of right femur Acute dehydration Chronic atrial fibrillation with rapid ventricular response Cyclic vomiting syndrome Hypomagnesemia NPDR (nonproliferative diabetic retinopathy) Chronic vomiting Peripheral vascular occlusive disease Anxiety Renal cell carcinoma Atherosclerosis of coronary artery of [place] heart without angina pectoris Essential (primary) hypertension Gastro-esophageal reflux disease without esophagitis Peripheral neuropathy Chronic kidney disease, stage 3 Mild chronic obstructive pulmonary disease Type II diabetes mellitus Home Medications ?Medication ?Instructions ?Recorded ?Last Taken ?Type atorvastatin 80 mg tablet 80 mg PO QHS cholesterol 07/31/17 07/17/24 History insulin human U-100 NPH-regulr 22 unit SQ BID diabetes 07/31/17 07/17/24 History 70-30 mix 100 unit/mL subcutaneous susp ondansetron HCl 8 mg tablet 8 mg PO Q8H PRN PRN 01/06/21 Unknown Rx Nausea/Vomiting #15 tabs rivaroxaban 20 mg tablet (Xarelto) 20 mg PO QHS a fib 07/07/21 07/15/24 History sertraline 100 mg tablet 100 mg PO DAILY depression 07/07/21 07/17/24 History buspirone 10 mg tablet 10 mg PO TID cyclic vommitting 09/28/23 07/17/24 History gabapentin 300 mg capsule 300 mg PO TID cyclic vomitting 09/28/23 07/17/24 History pantoprazole 40 mg tablet,delayed 40 mg PO BID cyclic vomiting 09/28/23 07/17/24 History release metoprolol succinate 100 mg 100 mg PO DAILY irreg. heart beat 03/24/24 07/17/24 History tablet,extended release 24 hr ropinirole 5 mg tablet 5 mg PO TID restless legs 03/24/24 07/17/24 History amlodipine 10 mg tablet 10 mg PO 1700 10/10/24 Unknown History aspirin 81 mg tablet,delayed 81 mg PO QHS heart 10/10/24 Unknown History release (Adult Aspirin Regimen) furosemide 20 mg tablet (Lasix) 20 mg PO DAILY PRN edema 10/10/24 Unknown History losartan 100 mg tablet 100 mg PO 1200 10/10/24 Unknown History promethazine 25 mg tablet 25 mg PO Q8H PRN PRN nausea and 10/10/24 Unknown History vomiting trazodone 50 mg tablet 50 mg PO QHS PRN sleep 10/10/24 Unknown History umeclidinium 62.5 mcg-vilanterol 1 inh inhalation DAILY wheeze 10/10/24 Unknown History 25 mcg/actuation powdr for inhalation (Anoro Ellipta) Allergy/AdvReac Type Severity Reaction Status Date / Time diphenhydramine HCl (From AdvReac restless Verified 10/10/24 16:52 Benadryl) legs dofetilide AdvReac LONG QT Verified 10/10/24 16:52 haloperidol (From Haldol) AdvReac Other Verified 10/10/24 16:52 metoclopramide (From Reglan) AdvReac restless Verified 10/10/24 16:52 legs Family History Mother Cancer Stomach Father Colon cancer Heart disease Sister Colon cancer Surgical History History of bladder repair surgery History of cardiac catheterization (~11/2023) History of angioplasty of peripheral vessel (07/2013) History of cholecystectomy (08/2019) History of radiofrequency ablation procedure for cardiac arrhythmia (03/19/16) History of cardioversion (2014) History of open reduction and internal fixation (ORIF) procedure H/O laminectomy History of colonoscopy H/O coronary artery bypass surgery (01/29/03) History of hysterectomy (1995) History of esophagogastroduodenoscopy (EGD) (01/2018) History of partial nephrectomy Social History household members: none Smoking Status: Former smoker pack-years: 40 how long ago did patient quit smokin alcohol intake: never substance use type: does not use caffeine: Yes (Occasionally) Type: carbonated beverages ROS ROS Narrative Review of Systems: Constitutional: Patient denies fever or chills. Eyes: Patient denies changes in vision or discharge from eyes. ENT: Patient denies runny nose, sore throat or ear pain. Resp: Patient denies SOB or cough. GI: Patient admits to LGIB with BRBPR as per HPI. She denies associated abdominal pain, nausea, vomiting or constipation. : Patient denies dysuria or hematuria. MSK: Patient admits to chronic back pain. Skin: Patient denies rash, abscess or jaundice. Psych: Patient denies symptoms of uncontrolled depression or anxiety. Neuro: Patient denies headache, paresthesias or focal neurologic deficits. Allergy: Patient denies lip swelling, tongue swelling or urticaria. Hematology: Patient admits to LGIB bleeding as per HPI. Endocrinology: Patient denies polyuria, polydipsia or polyphagia. 14 point ROS otherwise negative except for positives noted above in HPI. Vital Signs Vital Signs Vital Signs: 10/10/24 16:52 10/10/24 18:52 10/10/24 20:37 Temperature 97 F L 97.8 F Temperature Source Temporal Pulse Rate 63 70 Respiratory Rate 17 18 Blood Pressure 124/60 H 137/45 H 142/64 H Blood Pressure Mean 81 75 90 Pulse Ox 96 97 Oxygen Delivery Method Room Air Weight Weight: 196 lb 13.965 oz Body Mass Index (BMI) 29.9 Physical Exam Const alert, oriented x3, no apparent distress, average body habitus and healthy appearing General Appearance: cooperative HEENT normocephalic, head/scalp atraumatic, hearing grossly normal bilaterally and moist oral mucous membranes Eyes PERRL and EOMs intact bilaterally Neck no lymphadenopathy and supple Resp normal respiratory effort, no retractions, no use of accessory muscles and clear to auscultation bilaterally Cardio regular rate and regular rhythm GI normal to inspection, nondistended, normoactive bowel sounds, soft to palpation, non-tender and non-distended Extremity normal to inspection, full ROM and no clubbing, cyanosis or edema Skin Skin Narrative: Patient has no evidence of rash, abscess or jaundice. Neuro oriented x3, CN's II-XII intact bilaterally, moves all extremities and no focal motor deficits Sensorium / Orientation: awake, alert, oriented to person, oriented to place and oriented to time Speech: speech normal Psych affect normal Results Medical Records Data Attestation: I reviewed the patient's medical records Lab / Micro Data Attestation: I reviewed the patient's lab results. 10/11/24 04:25 10/10/24 17:10 Labs: Laboratory Results - last 24 hr 10/10/24 17:10: WBC 7.0, RBC 3.57 L, Hgb 10.2 L, Hct 32.7 L, MCV 91.6, MCH 28.6, MCHC 31.2 L, RDW Std Deviation 45.7 H, RDW Coeff of Ray 13.6, Plt Count 179, MPV 9.5, Immature Gran % (Auto) 0.400, Neut % (Auto) 64.2, Lymph % (Auto) 25.4, [place] % (Auto) 7.6, Eos % (Auto) 2.0, Baso % (Auto) 0.4, Absolute Neuts (auto) 4.5, Absolute Lymphs (auto) 1.77, Nucleated RBC % 0, PT 19.2 H, INR 1.6, APTT 43.4 H, Sodium 142, Potassium 4.6, Chloride 114 H, Carbon Dioxide 23.0, Anion Gap 5, BUN 25 H, Creatinine 0.95, Estim Creat Clear Calc 62.58, Est GFR (MDRD) Af Amer 74, Est GFR (MDRD) Non-Af 61, BUN/Creatinine Ratio 26.3 H, Glucose 181 H, Calcium 8.5, Total Bilirubin 0.40, AST 18, ALT 23, Alkaline Phosphatase 98, Total Protein 6.3 L, Albumin 3.4, Globulin 2.9, Albumin/Globulin Ratio 1.2, Lipase 50, Blood Type A POSITIVE, Antibody Screen NEGATIVE 10/10/24 18:47: Urine Color Yellow, Urine Clarity Sl. Cloudy, Urine pH 6.0, Ur Specific [place] 1.015, Urine Protein 15 H, Urine Glucose (UA) Normal, Urine Ketones Negative, Urine Occult Blood 10 H, Urine Nitrite Negative, Urine Bilirubin Negative, Urine Urobilinogen Normal, Ur Leukocyte Esterase 500 H, Urine RBC 0-5 SEEN, Urine WBC 0-5 SEEN, Ur Squamous Epith Cells 0-5 SEEN, Urine Bacteria RARE, Urine Mucus 1+ Imaging Radiology Impression Abdomen/Pelvis CT 10/10/24 17:51 IMPRESSION: No evidence for small bowel obstruction. No evidence for acute diverticulitis. Cannot definitively exclude subtle intraluminal hemorrhage within a loop of small bowel in the left lower quadrant. Radionuclide tagged red blood cell study would be helpful for further evaluation if clinically warranted. Status post cholecystectomy partial right nephrectomy and hysterectomy Electronically Signed: Mark Alonso MD at 18:59 EST , Assessment & Plan Assessment/Plan (1) BRBPR (bright red blood per rectum): (2) Adverse drug reaction: QUALIFIERS: Encounter type: initial encounter Qualified Code(s): T50.905A - Adverse effect of unspecified drugs, medicaments and biological substances, initial encounter (3) Anemia: QUALIFIERS: Anemia type: unspecified type Qualified Code(s): D 64.9 - Anemia, unspecified (4) Overweight (BMI 25.0-29.9): (5) NAFLD (nonalcoholic fatty liver disease): (6) Paroxysmal atrial fibrillation: (7) H/O coronary artery bypass surgery: (8) Peripheral vascular occlusive disease: (9) Type 2 diabetes mellitus with hyperglycemia: QUALIFIERS: Diabetes mellitus terminal make up operator insulin use: with terminal make up operator use Qualified Code(s): E11.65 - Type 2 diabetes mellitus with hyperglycemia; Z79.4 - termite treater helper (current) use of insulin (10) Hyperlipidemia: QUALIFIERS: Hyperlipidemia type: unspecified Qualified Code(s): E 78.5 - Hyperlipidemia, unspecified (11) Chronic back pain: QUALIFIERS: Back pain laterality: bilateral Back pain location: l ow back pain Sciatica presence: without sciatica Qualified Code(s): M54.50 - Low back pain, unspecified; G89.29 - Other chronic pain (12) Lumbar radiculopathy: PLAN: Plan 1. LGIB with BRBPR and CT evidence of subtle intraluminal hemorrhage within a loop of small bowel in the LLQ with radionuclide tagged RBC scan recommended by radiologist - Admit to PCU. Keep NPO except medications, sips and ice chips. Transfuse for hemoglobin < 7g/dL. Radionuclide tagged RBC scan ordered and pending at this time. Give Tylenol prn for [id number] (level 1-5/10) pain or fever. Give Morphine IV prn for severe (level 6-10/10) pain. Finally, we will consult gastroenterology to see this patient on-rounds in the AM for further recommendations with help appreciated in advance. 2. Adverse Drug Reaction to combination of BASA and Xarelto triggering #1 - Hold BASA and Xarelto until source of bleeding has been clearly identified and neutralized. 3. Chronic Anemia with hemoglobin of 10.2 g/dL present on admission complicating #1 & #2 - Noted. Check CBC daily to follow trend. 4. Overweight; with BMI of 29.9 this admission with NAFLD adding to the medical complexity of #1 - #3 - Weight loss will be recommended Check TSH. This complicates her case and may hamper recovery. 5. OA; with DDD and Lumbar Spinal Stenosis with Radiculopathy; s/p Laminectomy and Muscle Spasms and Chronic Back Pain; on Methocarbamol q. 6 h prn plus Oxycodone q. 4h prn and Chronic Debility; with patient using a walker to mobilize adding to the burden of disease outlined from #1 - #4 - Noted. Continue pain management with IV Morphine for severe pain as noted above. 6. Essential Hypertension - Hold scheduled antihypertensives in light of #1. Give IV Hydralazine for systolic blood pressure > 160 mmHg. 7. PAF; on Xarelto s/p DCCV (2014) & radiofrequency ablation (2015) - Noted. 8. CAD; s/p CABG x 2 (2002) with subsequent C (11/2023) on BASA - Noted. 9. PVD; with claudication s/p angioplasty (2012) - Noted. 10. DM-2; of unknown control on NPH and R-insulin with history of nonproliferative diabetic retinopathy - Keep NPO for now. FSBS q. 6 hours plus lowest intensity SSI. Check HgbA1c. 11. Hyperlipidemia - Resume statin when workup completed. 12. History of tobacco abuse (quit 2008); with subsequent asthma/COPD - Stable with no evidence of acute flare. Continue Anoro Ellipta and prn nebulizers. 13. CKD; stage III, history of Renal Cell Carcinoma; s/p partial Right nephrectomy - Noted. 14. History of bladder repair surgery - Noted. 15. GERD with history of Hiatal Hernia; on Sucralfate plus pantoprazole BID - Resume home regimen as previous after endoscopy when okay with GI. 16. RLS; on Ropinirole - Resume Ropinirole as before. 17. Neuropathic pain; on Gabapentin - Maintain current dose and schedule of Gabapentin to avoid flare. 18. Depression with anxiety; on Buspirone and Sertraline - Restart these agents as previous. 19. Listed allergy to Haldol (?) - Noted. 20. History of cyclic vomiting syndrome; with listed allergy to Reglan and Benadryl (restless legs) - Noted. We will give IV Zofran prn. 21. History of cholecystectomy (2018) - Noted. 22. History of hysterectomy (1995) - Noted for the sake of completeness. 23. History of Right femur fracture; s/p ORIF - Noted. 24. Listed allergy to Dofetilide (long QT) - Noted. 25. DVT prophylaxis - SCD's only in light of recent LGIB outlined in #1. Total time: Approximately (but not less than) 75 minutes. Charges/Coding Visit Charges Inpatient E&M: 87983 Init Hosp L3
[2024-10-10 21:48] VITALS: BMI 29.1
[2024-10-10 21:56] VITALS: BP 128/79; PULSE 69; RESP 16; TEMP 36.7; O2SAT 95
[2024-10-10] MEDS: 0.9% Normal Saline (1000mL) 1,000 ML 70 ML IV (22:01)
[2024-10-10] MEDS: Ondansetron 4 MG/2 ML Vial IV (22:04)
[2024-10-10] MEDS: busPIRone 5 MG Tablet 10 MG PO (22:23)
[2024-10-10] MEDS: Pantoprazole Sodium 40 MG Tablet PO (22:24)
[2024-10-10] MEDS: Pramipexole Di-HCl 0.5 MG Tablet 1.5 MG PO (22:24)
[2024-10-10] MEDS: Gabapentin 300 MG Capsule PO (22:26)
[2024-10-10 22:28] VITALS: BMI 29.1
[2024-10-10 22:39] LABS: Hemoglobin A1c 7.6 % (3.8-5.6)
[2024-10-10 22:51] LABS: Bedside Glucose 137 mg/dL (74-106)
[2024-10-11] VITALS (8 sets, daily range): BP systolic 105–137; BP diastolic 36–60; PULSE 70–88; RESP 16–19; TEMP 36.3–36.6; O2SAT 92–97; BMI 29.1
[2024-10-11 00:45] LABS: Bedside Glucose 121 mg/dL (74-106)
[2024-10-11 05:11] LABS: Absolute Lymphocyte Count 1.68 X10^3/uL (0.83-4.51); Absolute Neutrophil Count 3.7 X10^3/uL (2.0-7.7); Basophil# 0.02 X10^3/uL; Basophil% 0.3 % (0-1); Eosinophils% 1.7 % (0-5); Hematocrit 31.9 % (37-47); Lymphocyte # 1.68 X10^3/ul (0.83-4.51); Lymphocyte % 28.4 % (19-41); Mean Corp Hgb Conc 31.3 g/dL (32-36); Mean Corpuscular Hgb 28.7 pg (27.0-32.0); Mean Corpuscular Volume 91.4 fL (81-99); Mean Platelet Vol. 9.4 fl (6.2-12.0); Monocyte# 0.38 X10^3/uL; Monocyte% 6.4 % (0-10); NRBC Flagged by Analyzer 0 % (0-5); Neutrophil # 3.71 X10^3/uL (2.7-7.7); Neutrophil % 62.9 % (47-70); Platelet Count 175 K/mm3 (150-450); RBC Distribution Width CV 13.6 % (11.6-14.6); Red Blood Count 3.49 M/mm3 (4.2-5.4); White Blood Count 5.9 K/mm3 (4.4-11.0)
[2024-10-11 05:38] LABS: ALB/GLOB Ratio 1.1 RATIO (0.9-2.4); AST(SGOT) 22 U/L (15-37); Alanine Aminotransfer ALT/SGPT 31 U/L (13-56); Albumin, Serum 3.2 g/dL (3.2-5.0); Alkaline Phosphatase 91 U/L (45-117); Anion Gap 2 (5-15); BUN 19 mg/dL (7-18); Calcium,Total 8.7 mg/dL (8.5-10.1); Chloride 116 mmol/L (98-107); EST Glomerular Filtration Rate 65 mL/min (>60); Est Glom Filt Rate - Afr Amer 79 mL/min (>60); Estimated Creatinine Clearance 65.24 ml/min; Globulin 2.9 g/dL (2.2-4.2); Glucose 117 mg/dL (74-106); Magnesium 1.7 mg/dL (1.6-2.6); Potassium 4.6 mmol/L (3.5-5.1); Protein, Total 6.1 g/dL (6.4-8.2); Sodium Level 143 mmol/L (136-145)
--- NOTE | 2024-10-11 05:55 | EKG12_ITS ---
Test Reason : AM EKG Blood Pressure : */* mmHG Vent. Rate : 70 BPM Atrial Rate : 70 BPM P-R Int : 172 ms QRS Dur : 92 ms QT Int : 418 ms P-R-T Axes : 77 57 16 degrees QTcB Int : 451 ms Normal sinus rhythm Normal ECG When compared with ECG of 10-Oct-2024 17:22, MANUAL COMPARISON REQUIRED DATA IS UNCONFIRMED Confirmed by ALEXANDRA HUMPHREY, EMY ([id number]), editor magazine EFRAIN WALLACE ([id number]) on 10/12/2024 6:35:36 AM Referred By: KAPADIA Confirmed By: EMY MORRIS MD
[2024-10-11 06:06] LABS: Bedside Glucose 107 mg/dL (74-106)
[2024-10-11] MEDS: Albuterol 2.5 MG/3 ML VIAL.NEB. INHALATION ×3 (07:02→19:29)
[2024-10-11] MEDS: Budesonide Respules 0.5 MG/2 ML AMPUL.NEB. INHALATION ×2 (07:02→19:29)
--- NOTE | 2024-10-11 07:44 | CON.PCM.GI_ITS ---
HPI Consult Data Date of Consult: 10/11/24 HPI Narrative Reason for Consultation: GI bleed HPI Narrative: TACOS HAM, is a 74 F presented to [facility] ER complaining of lower GI bleed with BRBPR. Ms. Ham reports her symptoms began approximately 3:00 PM earlier today with a bloody bowel movement that was bright red. She then called her PCP who recommended she come to the ER for further evaluation and treatment. She denies any further bleeding since that time or recent abdominal injury. She states she has been taking her medications as prescribed and she denies straining at her stools. She also denies associated fever, chills, abdominal pain, nausea, vomiting, constipation, dysuria, paresthesias, headache or rash. In the ER she was noted to have CT evidence of subtle intraluminal hemorrhage within a loop of small bowel in the LLQ with radionuclide tagged RBC scan recommended by radiologist with a hemoglobin of 10.2 g/dL present on admission and no further bleeding noted since admission. [facility] Medical History History of stress test Wears glasses Wears dentures Cancer Depression Insulin dependent diabetes mellitus Walker as ambulation aid Arthritis Fatty liver High cholesterol Restless legs History of hiatal hernia Shortness of breath on exertion Former smoker Asthma COPD (chronic obstructive pulmonary disease) Leg cramps History of echocardiogram History of stress test Cardiology follow-up encounter History of atrial fibrillation Fracture of right femur Acute dehydration Chronic atrial fibrillation with rapid ventricular response Cyclic vomiting syndrome Hypomagnesemia NPDR (nonproliferative diabetic retinopathy) Chronic vomiting Peripheral vascular occlusive disease Anxiety Renal cell carcinoma Atherosclerosis of coronary artery of [place] heart without angina pectoris Essential (primary) hypertension Gastro-esophageal reflux disease without esophagitis Peripheral neuropathy Chronic kidney disease, stage 3 Mild chronic obstructive pulmonary disease Type II diabetes mellitus Home Medications ?Medication ?Instructions ?Recorded ?Last Taken ?Type atorvastatin 80 mg tablet 80 mg PO QHS cholesterol 07/31/17 07/17/24 History insulin human U-100 NPH-regulr 22 unit SQ BID diabetes 07/31/17 07/17/24 History 70-30 mix 100 unit/mL subcutaneous susp ondansetron HCl 8 mg tablet 8 mg PO Q8H PRN PRN 01/06/21 Unknown Rx Nausea/Vomiting #15 tabs rivaroxaban 20 mg tablet (Xarelto) 20 mg PO QHS a fib 08/16/21 08/24/24 History sertraline 100 mg tablet 100 mg PO DAILY depression 07/07/21 07/17/24 History buspirone 10 mg tablet 10 mg PO TID cyclic vommitting 09/28/23 07/17/24 History gabapentin 300 mg capsule 300 mg PO TID cyclic vomitting 09/28/23 07/17/24 History pantoprazole 40 mg tablet,delayed 40 mg PO BID cyclic vomiting 09/28/23 07/17/24 History release metoprolol succinate 100 mg 100 mg PO DAILY irreg. heart beat 03/24/24 07/17/24 History tablet,extended release 24 hr ropinirole 5 mg tablet 5 mg PO TID restless legs 03/24/24 07/17/24 History amlodipine 10 mg tablet 10 mg PO 1700 10/10/24 Unknown History aspirin 81 mg tablet,delayed 81 mg PO QHS heart 10/10/24 Unknown History release (Adult Aspirin Regimen) furosemide 20 mg tablet (Lasix) 20 mg PO DAILY PRN edema 10/10/24 Unknown History losartan 100 mg tablet 100 mg PO 1200 10/10/24 Unknown History promethazine 25 mg tablet 25 mg PO Q8H PRN PRN nausea and 10/10/24 Unknown History vomiting trazodone 50 mg tablet 50 mg PO QHS PRN sleep 10/10/24 Unknown History umeclidinium 62.5 mcg-vilanterol 1 inh inhalation DAILY wheeze 10/10/24 Unknown History 25 mcg/actuation powdr for inhalation (Anoro Ellipta) Allergy/AdvReac Type Severity Reaction Status Date / Time diphenhydramine HCl (From AdvReac restless Verified 10/10/24 16:52 Benadryl) legs dofetilide AdvReac LONG QT Verified 10/10/24 16:52 haloperidol (From Haldol) AdvReac Other Verified 10/10/24 16:52 metoclopramide (From Reglan) AdvReac restless Verified 10/10/24 16:52 legs Family History Mother Cancer Stomach Father Colon cancer Heart disease Sister Colon cancer Surgical History History of bladder repair surgery History of cardiac catheterization (~11/2023) History of angioplasty of peripheral vessel (07/2013) History of cholecystectomy (08/2019) History of radiofrequency ablation procedure for cardiac arrhythmia (03/19/16) History of cardioversion (2014) History of open reduction and internal fixation (ORIF) procedure H/O laminectomy History of colonoscopy H/O coronary artery bypass surgery (01/29/03) History of hysterectomy (1995) History of esophagogastroduodenoscopy (EGD) (01/2018) History of partial nephrectomy Social History household members: none Smoking Status: Former smoker pack-years: 40 how long ago did patient quit smokin alcohol intake: never substance use type: does not use caffeine: Yes (Occasionally) Type: carbonated beverages ROS ROS Narrative Review of Systems: Constitutional: Patient denies fever or chills. Eyes: Patient denies changes in vision or discharge from eyes. ENT: Patient denies runny nose, sore throat or ear pain. Resp: Patient denies SOB or cough. GI: Patient admits to LGIB with BRBPR as per HPI. She denies associated abdominal pain, nausea, vomiting or constipation. : Patient denies dysuria or hematuria. MSK: Patient admits to chronic back pain. Skin: Patient denies rash, abscess or jaundice. Psych: Patient denies symptoms of uncontrolled depression or anxiety. Neuro: Patient denies headache, paresthesias or focal neurologic deficits. Allergy: Patient denies lip swelling, tongue swelling or urticaria. Hematology: Patient admits to LGIB bleeding as per HPI. Endocrinology: Patient denies polyuria, polydipsia or polyphagia. 14 point ROS otherwise negative except for positives noted above in HPI. Physical Exam Const alert and no apparent distress HEENT head/scalp atraumatic and moist oral mucous membranes Resp normal respiratory effort, no retractions, no use of accessory muscles and clear to auscultation bilaterally Cardio regular rate, regular rhythm, S1 normal heart sound and S2 normal heart sound GI normal to inspection, nondistended, normoactive bowel sounds, soft to palpation, non-tender and non-distended Extremity normal to inspection and full ROM Neuro Sensorium / Orientation: awake and alert Lab / Micro Data 10/12/24 05:32 10/12/24 05:32 Labs: Laboratory Results - last 24 hr 10/11/24 11:42: POC Glucose 114 H 10/11/24 17:28: POC Glucose 124 H 10/11/24 22:12: POC Glucose 164 H 10/12/24 00:32: POC Glucose 156 H 10/12/24 05:32: WBC 6.8, RBC 3.70 L, Hgb 10.3 L, Hct 34.1 L, MCV 92.2, MCH 27.8, MCHC 30.2 L, RDW Std Deviation 45.8 H, RDW Coeff of Ray 13.5, Plt Count 164, MPV 9.4, Immature Gran % (Auto) 0.300, Neut % (Auto) 73.4 H, Lymph % (Auto) 18.3 L, [place] % (Auto) 6.5, Eos % (Auto) 0.9, Baso % (Auto) 0.6, Absolute Neuts (auto) 5.0, Absolute Lymphs (auto) 1.25, Nucleated RBC % 0, Sodium 140, Potassium 4.0, Chloride 110 H, Carbon Dioxide 23.0, Anion Gap 7, BUN 15, Creatinine 0.96, Estim Creat Clear Calc 61.06, Est GFR (MDRD) Af Amer 74, Est GFR (MDRD) Non-Af 61, BUN/Creatinine Ratio 15.7, Glucose 155 H, Calcium 9.0, Phosphorus 3.6, Magnesium 1.8 10/12/24 05:43: POC Glucose 138 H Micro: Microbiology 10/10/24 14:00 Stool Stool Occult Blood (MT) - Final Imaging Radiology Impression GI Bleed Scan Nuclear Medicine 10/11/24 09:00 IMPRESSION: 1. NEGATIVE 99m Tc ULTRATAG LABELED BLOOD POOL GASTROINTESTINAL BLEEDING EXAMINATION. 2. There is no scintigraphic evidence of active gastrointestinal hemorrhage on the current evaluation. Electronically Signed: Marvin Schaffer, DO at 11:59 EST , Assessment & Plan Assessment/Plan (1) BRBPR (bright red blood per rectum): (2) Adverse drug reaction: QUALIFIERS: Encounter type: initial encounter Qualified Code(s): T50.905A - Adverse effect of unspecified drugs, medicaments and biological substances, initial encounter (3) Anemia: QUALIFIERS: Anemia type: unspecified type Qualified Code(s): D 64.9 - Anemia, unspecified (4) Overweight (BMI 25.0-29.9): (5) NAFLD (nonalcoholic fatty liver disease): (6) Paroxysmal atrial fibrillation: (7) H/O coronary artery bypass surgery: (8) Peripheral vascular occlusive disease: (9) Type 2 diabetes mellitus with hyperglycemia: QUALIFIERS: Diabetes mellitus shelter insulin use: with intermediate school teacher use Qualified Code(s): E11.65 - Type 2 diabetes mellitus with hyperglycemia; Z79.4 - bed bug exterminator (current) use of insulin (10) Hyperlipidemia: QUALIFIERS: Hyperlipidemia type: unspecified Qualified Code(s): E 78.5 - Hyperlipidemia, unspecified (11) Chronic back pain: QUALIFIERS: Back pain location: low back pain Back pain laterality: bilateral Sciatica presence: without sciatica Qualified Code(s): M 54.50 - Low back pain, unspecified; G89.29 - Other chronic pain (12) Lumbar radiculopathy: PLAN: Plan A very pleasant 74-year-old with a LGIB with BRBPR and CT evidence of subtle intraluminal hemorrhage within a loop of small bowel in the LLQ with radionuclide tagged RBC scan recommended by radiologist - A she will undergo EGD and colonoscopy to evaluate upper lower GI tract. She was explained alternatives, risk and benefits including outstanding bleeding, infection, sepsis, perforation, need for return to . She have an ASA of 3. Charges/Coding Visit Charges Inpatient E&M: 40007 Init Hosp L3
--- NOTE | 2024-10-11 08:13 | PCM.PN.HOSP ---
Reason for Visit Reason for Visit: Diagnoses Anemia, unspecified (10/10/24) Type 2 diabetes mellitus with hyperglycemia (10/10/24) Overweight (10/10/24) Hyperlipidemia, unspecified (10/10/24) Other chronic pain (10/10/24) Paroxysmal atrial fibrillation (10/10/24) Peripheral vascular disease, unspecified (10/10/24) Hemorrhage of anus and rectum (10/10/24) Fatty (change of) liver, not elsewhere classified (10/10/24) Radiculopathy, lumbar region (10/10/24) Low back pain, unspecified (10/10/24) Adverse effect of unspecified drugs, medicaments and biological substances, initial encounter (10/10/24) buttermaker continuous churn (current) use of insulin (10/10/24) Presence of aortocoronary bypass graft (10/10/24) Subjective Subjective No further bleeding. Complains of suprapubic abdominal pain. Objective Data Objective Data Vital Signs: Vital Signs Temp Pulse Resp BP Pulse Ox O2 Del Method 36.3 C L 82 18 129/60 H 92 Room Air 10/11/24 03:49 10/11/24 07:40 10/11/24 07:40 10/11/24 03:49 10/11/24 07:58 10/11/24 07:58 Oxygen Delivery Method Room Air Weight: 87 kg Body Mass Index (BMI) 29.1 Intake & Output: Intake and Output for Last 24 Hours 10/09/24 10/10/24 10/11/24 23:59 23:59 23:59 Output Total 200 / 200 900 / 900 Balance -200 / -200 -900 / -900 Lab / Micro Data 10/11/24 04:25 10/11/24 04:25 Labs: Laboratory Results - last 24 hr 10/10/24 17:10: WBC 7.0, RBC 3.57 L, Hgb 10.2 L, Hct 32.7 L, MCV 91.6, MCH 28.6, MCHC 31.2 L, RDW Std Deviation 45.7 H, RDW Coeff of Ray 13.6, Plt Count 179, MPV 9.5, Immature Gran % (Auto) 0.400, Neut % (Auto) 64.2, Lymph % (Auto) 25.4, Mineral % (Auto) 7.6, Eos % (Auto) 2.0, Baso % (Auto) 0.4, Absolute Neuts (auto) 4.5, Absolute Lymphs (auto) 1.77, Nucleated RBC % 0, PT 19.2 H, INR 1.6, APTT 43.4 H, Sodium 142, Potassium 4.6, Chloride 114 H, Carbon Dioxide 23.0, Anion Gap 5, BUN 25 H, Creatinine 0.95, Estim Creat Clear Calc 62.58, Est GFR (MDRD) Af Amer 74, Est GFR (MDRD) Non-Af 61, BUN/Creatinine Ratio 26.3 H, Glucose 181 H, Hemoglobin A1c 7.6 H, Calcium 8.5, Total Bilirubin 0.40, AST 18, ALT 23, Alkaline Phosphatase 98, Total Protein 6.3 L, Albumin 3.4, Globulin 2.9, Albumin/Globulin Ratio 1.2, Lipase 50, TSH 2.380, Blood Type A POSITIVE, Antibody Screen NEGATIVE 10/10/24 18:47: Urine Color Yellow, Urine Clarity Sl. Cloudy, Urine pH 6.0, Ur Specific [place] 1.015, Urine Protein 15 H, Urine Glucose (UA) Normal, Urine Ketones Negative, Urine Occult Blood 10 H, Urine Nitrite Negative, Urine Bilirubin Negative, Urine Urobilinogen Normal, Ur Leukocyte Esterase 500 H, Urine RBC 0-5 SEEN, Urine WBC 0-5 SEEN, Ur Squamous Epith Cells 0-5 SEEN, Urine Bacteria RARE, Urine Mucus 1+ 10/10/24 22:21: POC Glucose 137 H 10/11/24 00:25: POC Glucose 121 H 10/11/24 04:25: WBC 5.9, RBC 3.49 L, Hgb 10.0 L, Hct 31.9 L, MCV 91.4, MCH 28.7, MCHC 31.3 L, RDW Std Deviation 46.0 H, RDW Coeff of Ray 13.6, Plt Count 175, MPV 9.4, Immature Gran % (Auto) 0.300, Neut % (Auto) 62.9, Lymph % (Auto) 28.4, Mineral % (Auto) 6.4, Eos % (Auto) 1.7, Baso % (Auto) 0.3, Absolute Neuts (auto) 3.7, Absolute Lymphs (auto) 1.68, Nucleated RBC % 0, Sodium 143, Potassium 4.6, Chloride 116 H, Carbon Dioxide 25.0, Anion Gap 2 L, BUN 19 H, Creatinine 0.90, Estim Creat Clear Calc 65.24, Est GFR (MDRD) Af Amer 79, Est GFR (MDRD) Non-Af 65, BUN/Creatinine Ratio 21.0 H, Glucose 117 H, Calcium 8.7, Phosphorus 3.0, Magnesium 1.7, Total Bilirubin 0.70, AST 22, ALT 31, Alkaline Phosphatase 91, Total Protein 6.1 L, Albumin 3.2, Globulin 2.9, Albumin/Globulin Ratio 1.1 10/11/24 05:46: POC Glucose 107 H Radiography Diagnostic Testing: Radiology Impression Abdomen/Pelvis CT 10/10/24 17:51 IMPRESSION: No evidence for small bowel obstruction. No evidence for acute diverticulitis. Cannot definitively exclude subtle intraluminal hemorrhage within a loop of small bowel in the left lower quadrant. Radionuclide tagged red blood cell study would be helpful for further evaluation if clinically warranted. Status post cholecystectomy partial right nephrectomy and hysterectomy Electronically Signed: Mark Alonso MD at 18:59 EST Reading Location ID and State: [address] [place] [address] Tel , Service support , Physical Exam Const alert and no apparent distress HEENT head/scalp atraumatic and moist oral mucous membranes Resp normal respiratory effort, no retractions, no use of accessory muscles and clear to auscultation bilaterally Cardio regular rate, regular rhythm, S1 normal heart sound and S2 normal heart sound GI normal to inspection, nondistended, normoactive bowel sounds, soft to palpation, non-tender and non-distended Extremity normal to inspection and full ROM Neuro Sensorium / Orientation: awake and alert Assessment & Plan Assessment/Plan (1) BRBPR (bright red blood per rectum): (2) Adverse drug reaction: QUALIFIERS: Encounter type: initial encounter Qualified Code(s): T50.905A - Adverse effect of unspecified drugs, medicaments and biological substances, initial encounter (3) Anemia: QUALIFIERS: Anemia type: unspecified type Qualified Code(s): D64.9 - Anemia, unspecified (4) Overweight (BMI 25.0-29.9): (5) NAFLD (nonalcoholic fatty liver disease): (6) Paroxysmal atrial fibrillation: (7) H/O coronary artery bypass surgery: (8) Peripheral vascular occlusive disease: (9) Type 2 diabetes mellitus with hyperglycemia: QUALIFIERS: Diabetes mellitus penitentiary insulin use: with penitentiary use Qualified Code(s): E11.65 - Type 2 diabetes mellitus with hyperglycemia; Z79.4 - buttermaker continuous churn (current) use of insulin (10) Hyperlipidemia: QUALIFIERS: Hyperlipidemia type: unspecified Qualified Code(s): E78.5 - Hyperlipidemia, unspecified (11) Chronic back pain: QUALIFIERS: Back pain laterality: bilateral Back pain location: low back pain Sciatica presence: without sciatica Qualified Code(s): M54.50 - Low back pain, unspecified; G89.29 - Other chronic pain (12) Lumbar radiculopathy: PLAN: Plan GI bleed Resolved. CT could not exclude subtle intraluminal hemorrhage within a loop of small bowel in the LLQ. Bleeding scan was negative. Given her abdominal symptoms with BRBPR, I actually suspect a lower GI source of bleeding (ischemic colitis, divertiuclosis, etc.) Hemoglobin stable GI consult Hold ASA and rivaroxaban. Change PPI to IV Chronic conditions: PAF; on Xarelto s/p DCCV (2014) & radiofrequency ablation (2015) CAD; s/p CABG x 2 (2002) with subsequent [facility] (11/2023) on BASA (I cannot verify this as [facility] is not working at this time) PVD; with claudication s/p angioplasty (2012) DM-2; of unknown control on NPH and R-insulin with history of nonproliferative diabetic retinopathy - Keep NPO for now. FSBS q. 6 hours plus lowest intensity SSI. HgbA1c 7.6 CKD; stage III, history of Renal Cell Carcinoma; s/p partial Right nephrectomy VTE prophylaxis: SCDs. Charges/Coding Visit Charges Inpatient E&M: 03731 Subs Hosp L2
--- NOTE | 2024-10-11 09:00 | NM_ITS ---
CLINICAL: 74-year-old female with history of gastrointestinal hemorrhage. LABELED BLOOD POOL GASTROINTESTINAL BLEEDING STUDY COMPARISON: CT of the abdomen-pelvis report 10/10/2024 FINDINGS: Following the intravenous administration of 24.9 mCi of 99m Tc Ultratag labeled RBCs, image acquisitions of the anterior-abdomen and pelvis for a total of 60 minutes reveal: 1. There is no evidence of abnormal increased tracer concentration on review of 60 one minute static image acquisitions of the anterior abdomen and pelvis. 2. Physiologic uptake is noted in the hepatic and splenic and major vascular blood pool. There is identification of the urinary bladder. NM/GI Bleed Scan IMPRESSION: 1. NEGATIVE 99m Tc ULTRATAG LABELED BLOOD POOL GASTROINTESTINAL BLEEDING EXAMINATION. 2. There is no scintigraphic evidence of active gastrointestinal hemorrhage on the current evaluation. Electronically Signed: Marvin Schaffer DO at 11:59 EST ,
--- NOTE | 2024-10-11 10:40 | CASEMGMT ---
RN CM NOTE: RN CM to room to complete assessment. Pt out of room at this time. RN CM to complete assessment at a later time. Altagracia BSN RN CM
[2024-10-11] MEDS: Pantoprazole Sodium 40 MG in 0.9% Normal Saline (100mL MB+) 100 ML 330 MG IV ×2 (10:52→22:14)
[2024-10-11] MEDS: Sertraline 100 MG Tablet PO (10:54)
[2024-10-11] MEDS: Ondansetron 4 MG/2 ML Vial IV (12:17)
[2024-10-11] MEDS: 0.9% Saline Lock 10 ML Syringe IV ×2 (12:17→22:14)
[2024-10-11 12:18] LABS: Bedside Glucose 114 mg/dL (74-106)
[2024-10-11] MEDS: busPIRone 5 MG Tablet 10 MG PO ×2 (13:54→22:18)
[2024-10-11] MEDS: Pramipexole Di-HCl 0.5 MG Tablet 1.5 MG PO ×2 (13:54→22:18)
[2024-10-11] MEDS: Gabapentin 300 MG Capsule PO ×2 (13:54→22:15)
--- NOTE | 2024-10-11 14:20 | CASEMGMT ---
RN CM TILTING HEAD BAND SAWYER CM?to room to meet with patient for initial transition planning/care coordination assessment. RN CM?introduced self and role at [facility]. Pt voices understanding and consents to assessment?at this time. Pt resting in bed in no distress at this time. Pt is A/O at this time and answers all questions appropriately. Care providers, pharmacy, and demographics verified/updated at this time. Pt states is supposed to be moving to [facility] in [place], [place] tomorrow at 10 AM. She thinks it is [address], but she is not sure. Her family will be helping her move. She is not sure if her daughter has contacted [facility] yet to inform them she will not be able to come tomorrow morning, but she plans to talk w/her daughter this evening when she comes in to visit. PCP: Dr Banegas Specialists: Dr Aceves, Dr Kwon-MONISHA, Dr Osullivan, [facility] in [facility] (pt does not remember name), Dr Capps- vascular surgeon. Preferred Pharmacy: [facility] Retail @ discharge Insurance: MMO MCR Prescription Benefit: bart Living Will/HPOA:Pt states she has completed these documents and they are at her home, stating her son and daughter are both HCPOA's. RN KRISTIAN inquired if these documents could be brought into the hospital to be placed on her chart. She states she thinks someone could bring these in for her, but she is not sure. LNOK: Daughter, Ollie. Son, Dustin. Jenny VARGAS Living Arrangements: Lives alone in one-story home w/1 threshold step to enter. Indep w/ADL's and manages her own medications. Her daughter has been staying w/her a lot and assists w/household mgnt tasks. Passport: Pt states she has a CM Audrey ([phone]). She was approved for home-delivered meals, but has not started receiving them yet. She has a medical alert button. MIRLANDE, Jen, made aware. Transportation: Pt states she does not drive much, her daughter usually provides most of the transportation. DME: States has the following DME: shower chair, cane, rollator, W/C, walker, Apple Watch, functioning glucometer w/supplies. She states she has all insulin needed. She states is getting low on needles, but has enough for now. She plans to call and order more and denies need for assistance w/this. HHC/SNF: [facility] and [facility]. She has also had [facility] HHC this year. Pt states she would like [facility] again, and declines wanting list of other HHC options, unless [facility] unable to accept her. Discussed [facility]'s homebound criteria. Pt states she feels she will be homebound for awhile, once returning home, stating she feels weaker than usual, is currently using a walker, and feels like it will be taxing to get in/out of vehicle. CLINICAL NURSE CM made of request for [facility]. PLAN: Home/Independent Living w/HHC. Altagracia CONTRERAS RN CM
--- NOTE | 2024-10-11 15:14 | CASEMGMT ---
Addendum entered by Rosalio Mcpherson 10/11/24 16:31: Gatito French @ [facility], they are able to accept pt. Original Note: RN CM made referral to [facility], awaiting acceptance. CM will continue to follow this patient and plan for a safe discharge.
[2024-10-11] MEDS: Bisacodyl 5 MG Tablet 20 MG PO (17:52)
[2024-10-11 17:55] LABS: Bedside Glucose 124 mg/dL (74-106)
[2024-10-11] MEDS: Polyethylene Glycol 3350 BOWEL PREP 1 BOTTLE PO (18:50)
[2024-10-11 22:41] LABS: Bedside Glucose 164 mg/dL (74-106)
[2024-10-12] VITALS (10 sets, daily range): BP systolic 98–149; BP diastolic 39–65; PULSE 66–75; RESP 16–18; TEMP 36.1–36.8; O2SAT 92–97; BMI 29.0
--- NOTE | 2024-10-12 | GASB_PTH ---
PATHOLOGY RESULTS PATIENT: TACOS ESPINOZA LOC: [facility] U#:[id number] AGE/SX: 74/F ROOM: [facility] RE10/10/[address]: Dr. Joselo Marin DO : 1950 BED: 1 DIS: 10/12/2024 SPEC #: [id number] RECD: 10/12/24 09:59 STATUS: SO SCHULTE #: [id number] MELISSA: 10/12/24 00:[address]: Joselo Marin DEPT: SURGICAL PATHOLOGY RECD BY: Brando Jaramillo ENTERED: 10/12/24 10:00 SP TYPE: Gastric Bx OTHR DR: DO Dr. Tae Reyes DO Tissues: Gastric mucous membrane Procedures: Surgery Specimen Level IV HEADER OPERATION: Colonoscopy, EGD, polypectomy, hemostasis clip PRE-OP DIAGNOSIS: LGIB with BRBPR and CT evidence of subtle intraluminal hemorrhage within a loop of small bowel in the left lower quadrant with radionuclide tagged RBC scan recommended by radiologist TISSUE SUBMITTED: Gastric antrum polyp MICROSCOPIC DIAGNOSIS Gastric antrum polyp, biopsy: Mildly hyperplastic gastric epithelium. Changes suggestive of submucosal leiomyoma. See comment. FRANCHESKARenee 10/17/2024 COMMENT The results of immunohistochemistry for Helicobacter pylori will be reported separately ([id number]). Case has been reviewed in consultation with Dr. Harris who concurs with the above diagnosis. IDC:[id number] MICROSCOPIC DESCRIPTION Slides are reviewed. GROSS DESCRIPTION Received in fixative is one container labeled with the patient's name and designated Gastric antrum biopsy. The specimen consists of a pink-red polyp measuring 0.8 x 0.6 x 0.6 cm. The presumed base is inked. The polyp is bisected and submitted entirely in one cassette. 10/12/2024 TC:5 CPT:92559
[2024-10-12 01:08] LABS: Bedside Glucose 156 mg/dL (74-106)
--- NOTE | 2024-10-12 05:55 | EKG12_ITS ---
Test Reason : AM EKG Blood Pressure : */* mmHG Vent. Rate : 79 BPM Atrial Rate : 79 BPM P-R Int : 168 ms QRS Dur : 92 ms QT Int : 426 ms P-R-T Axes : 75 57 10 degrees QTcB Int : 488 ms Sinus rhythm with Premature atrial complexes Otherwise normal ECG When compared with ECG of 11-Oct-2024 04:41, MANUAL COMPARISON REQUIRED DATA IS UNCONFIRMED Confirmed by TIFFANIE BENJAMIN ([id number]), city editor MIRANDA MCLEAN ([id number]) on 10/13/2024 1:47:40 PM Referred By: KAPADIA Confirmed By: TIFFANIE BENJAMIN
[2024-10-12 06:17] LABS: Absolute Lymphocyte Count 1.25 X10^3/uL (0.83-4.51); Basophil# 0.04 X10^3/uL; Basophil% 0.6 % (0-1); Eosinophil# 0.06 X10^3/uL; Eosinophils% 0.9 % (0-5); Hematocrit 34.1 % (37-47); Hemoglobin 10.3 g/dL (12.0-15.0); Lymphocyte # 1.25 X10^3/ul (0.83-4.51); Lymphocyte % 18.3 % (19-41); Mean Corp Hgb Conc 30.2 g/dL (32-36); Mean Corpuscular Hgb 27.8 pg (27.0-32.0); Mean Corpuscular Volume 92.2 fL (81-99); Mean Platelet Vol. 9.4 fl (6.2-12.0); Monocyte# 0.44 X10^3/uL; Monocyte% 6.5 % (0-10); NRBC Flagged by Analyzer 0 % (0-5); Neutrophil # 5.01 X10^3/uL (2.7-7.7); Neutrophil % 73.4 % (47-70); Platelet Count 164 K/mm3 (150-450); RBC Distribution Width CV 13.5 % (11.6-14.6); RBC Distribution Width SD 45.8 fl (35.1-43.9); White Blood Count 6.8 K/mm3 (4.4-11.0)
[2024-10-12 06:51] LABS: Anion Gap 7 (5-15); BUN 15 mg/dL (7-18); BUN/Creat Ratio 15.7 RATIO (10-20); Chloride 110 mmol/L (98-107); Creatinine, Serum 0.96 mg/dL (0.55-1.02); EST Glomerular Filtration Rate 61 mL/min (>60); Est Glom Filt Rate - Afr Amer 74 mL/min (>60); Estimated Creatinine Clearance 61.06 ml/min; Glucose 155 mg/dL (74-106); Magnesium 1.8 mg/dL (1.6-2.6); Phosphorus 3.6 mg/dL (2.5-4.9); Sodium Level 140 mmol/L (136-145)
[2024-10-12 07:04] LABS: Bedside Glucose 138 mg/dL (74-106)
--- NOTE | 2024-10-12 07:37 | PRE.ANES_ITS ---
ASA Classification* ASA Classification ASA Classification: 3 Assessment & Plan Anesthesia* Anesthesia Assessment Anesthesia Assessment: Discussed sedation and/or anesthesia options, risks, benefits, and alternatives with patient/parents/legal guardian/POA. Questions invited. The patient/parents/legal guardian/POA seems to understand and agrees to proceed with anesthesia plan. Reviewed the physical assessment, medical history, allergy history and patient home medications list prior to surgery/procedure/anesthetic and documented any changes. Performed airway and anesthesia risk assessments. Anesthesia Type Anesthesia Type: MAC Anesthesia Focused Assessment* Temperature: 98.2 F Pulse Rate: 75 Blood Pressure: 142/62 Respiratory Rate: 18 Pulse Ox: 96 Airway Assessment Mouth opens: >3 cm Mallampati Score: II Focused Labs Anesthesia Preop lab: CBC WBC 6.8 K/mm3 (4.4-11.0) 10/12/24 05:32 RBC 3.70 M/mm3 (4.2-5.4) L 10/12/24 05:32 Hgb 10.3 g/dL (12.0-15.0) L 10/12/24 05:32 Hct 34.1 % (37-47) L 10/12/24 05:32 Plt Count 164 K/mm3 (150-450) 10/12/24 05:32 CHEMISTRY Potassium 4.0 mmol/L (3.5-5.1) 10/12/24 05:32 Sodium 140 mmol/L (136-145) 10/12/24 05:32 Magnesium 1.8 mg/dL (1.6-2.6) 10/12/24 05:32 Phosphorus 3.6 mg/dL (2.5-4.9) 10/12/24 05:32 BUN 15 mg/dL (7-18) 10/12/24 05:32 Creatinine 0.96 mg/dL (0.55-1.02) 10/12/24 05:32 Glucose 155 mg/dL (74-106) H 10/12/24 05:32 POC Glucose 138 mg/dL (74-106) H 10/12/24 05:43 TSH 2.380 uIU/mL (0.358-3.740) 10/10/24 17:10 COAG PT 19.2 SECONDS (11.7-14.9) H 10/10/24 17:10 Pre-Assessment Diagnosis/Proposed Procedure Planned Operative Procedure(s): EGD, Colonoscopy Anesthesia History 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 When Was Last Pacemaker Check QUESTION #4 FULL TEXT: You/Your Family Experience fever (hyperthermia) with Anesthesia Last Oral Intake Last Oral intake: Last Oral Intake NPO since 00:00 10/11/24 22:28 Meds taken in AM with sips of Yes 10/10/24 22:28 water? Meds patient instructed to take am of surgery PONV PONV - insulator cutter and former: PONV - insulator cutter and former Female HX of Motion Sickness HX of N/V After Surgery Non-Smoker Duration of Surgery greater than 60 minutes Number of Risk Factors PONV Score Height & Weight Height & Weight: Anesthesia: Height & Weight Height 5 ft 8 in 10/11/24 22:28 Weight: 86.7 kg 10/12/24 02:27 Body Mass Index (BMI) 29.0 10/12/24 02:27 Respiratory Assessment Respiratory Assessment - insulator cutter and former: Respiratory Tract Infection Hx - insulator cutter and former Hx Respiratory Tract Infection No 10/11/24 22:28 STOP Sleep Apnea STOP Sleep Apnea - insulator cutter and former: STOP Sleep Apnea - insulator cutter and former Hx Hypertension Yes 10/11/24 11:21 Hx Sleep Apnea No 10/10/24 21:48 CPAP No 07/27/24 13:45 BIPAP No 07/03/24 08:42 Do you snore loudly (louder No 10/10/24 21:48 than talking or can be heard Do you often feel tired/ No 10/10/24 21:48 fatigued/ sleepy during daytime? Has anyone observed you stop No 10/10/24 21:48 breathing during sleep? STOP Results Negative 10/10/24 21:48 QUESTION #5 FULL TEXT : Do you snore loudly (louder than talking or can be heard through closed doors)? 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 Specify any problems Hx of Preganancy in last 3 No 10/10/24 21:48 Months Nurse Filling Out Transfusion [id number] 10/10/24 21:48 & Questions: Date: 10/10/24 10/10/24 21:48 Time: 21:51 10/10/24 21:48 Patient unable to answer at this time (ie. confused, unrespo /Reproduction History /Reproductive History - insulator cutter and former: /Reproductive Hx- insulator cutter and former Hx Now No 10/11/24 22:28 Gestational Age (in weeks): EDC: Hx Hx Para Hx Section SAB No 10/11/24 22:28 Active Medications Active Medications: Current Medications Generic Name Dose Route Start Last Admin Trade Name Freq PRN Reason Stop Dose Admin Acetaminophen 650 mg 10/10/24 21:47 Acetaminophen 325 Mg Tablet PO Q6H PRN PRN Pain 1-5/10 or Fever Albuterol Sulfate 2.5 mg 10/10/24 21:47 Albuterol 2.5 Mg/3 Ml Vial.Neb. INHALATION Q2H PRN PRN SOB &/OR WHEEZING Albuterol Sulfate 2.5 mg 10/10/24 22:00 10/11/24 19:29 Albuterol 2.5 Mg/3 Ml Vial.Neb. INHALATION 2.5 mg Q6HWA.RT MOI Administration Budesonide 0.5 mg 10/10/24 22:00 10/11/24 19:29 Budesonide Respules 0.5 Mg/2 Ml Ampul.Neb. INHALATION 0.5 mg Q12H.RT MOI Administration Buspirone HCl 10 mg 10/10/24 22:00 10/12/24 05:44 Buspirone 5 Mg Tablet PO Not Given TID MOI Gabapentin 300 mg 10/10/24 22:00 10/12/24 05:45 Gabapentin 300 Mg Capsule PO Not Given TID MOI Glucagon 1 mg 10/10/24 21:47 Glucagon 1 Mg/Ml Syringe IM X1 PRN HYPOGLYCEMIA Protocol Hydralazine HCl 5 mg 10/10/24 21:47 Hydralazine 20 Mg/Ml Vial IV Q8H PRN PRN SBP GREATER THAN 160 Protocol Dextrose 250 mls @ 0 mls/hr 10/10/24 21:47 Dextrose 10%-Water IV .Q0M PRN HYPOGLYCEMIA Protocol As Directed Sodium Chloride 500 mls @ 15 mls/hr 10/10/24 21:53 IV .[id number] PRN Saline Flush Sodium Chloride 500 mls @ 15 mls/hr 10/10/24 21:53 IV .[id number] PRN Additional IVPB Infusion Pantoprazole Sodium 40 mg/ 110 mls @ 330 mls/hr 10/11/24 10:00 10/11/24 22:34 Sodium Chloride IV Infused Q12 MOI Infusion Insulin Human Lispro 0 unit 10/11/24 00:00 10/12/24 05:44 Insulin Lispro 100 Unit/Ml Insuln.Pen SC Not Given Q6 [facility] Protocol Insulin Lispro Protam/Lispro Human 10 unit 10/10/24 22:00 10/11/24 22:18 Insulin Human 75/25 [place] Not Given BID [facility] Melatonin 3 mg 10/10/24 21:47 Melatonin 3 Mg Tablet PO QHS PRN PRN INSOMNIA Morphine Sulfate 2 mg 10/10/24 21:47 Morphine 2 Mg/Ml Syringe IV Q4H PRN PRN Pain Score 6-10 Ondansetron HCl 4 mg 10/10/24 21:47 10/11/24 12:17 Ondansetron 4 Mg/2 Ml Vial IV 4 mg Q6H PRN PRN Administration NAUSEA/VOMITING Pramipexole Dihydrochloride 1.5 mg 10/10/24 22:00 10/12/24 05:45 Pramipexole Di-Hcl 0.5 Mg Tablet PO Not Given TID MOI Sertraline HCl 100 mg 10/11/24 10:00 10/11/24 10:54 Sertraline 100 Mg Tablet PO 100 mg DAILY MOI Administration Sodium Chloride 10 - 40 ml 10/10/24 21:53 10/11/24 22:14 0.9% Saline Lock 10 Ml Syringe IV 10 ml UD PRN Administration SALINE FLUSH Trazodone HCl 50 mg 10/10/24 21:47 Trazodone 50 Mg Tablet PO QHS PRN PRN sleep PFSH Medical History History of stress test Wears glasses Wears dentures Cancer Depression Insulin dependent diabetes mellitus Walker as ambulation aid Arthritis Fatty liver High cholesterol Restless legs History of hiatal hernia Shortness of breath on exertion Former smoker Asthma COPD (chronic obstructive pulmonary disease) Leg cramps History of echocardiogram History of stress test Cardiology follow-up encounter History of atrial fibrillation Fracture of right femur Acute dehydration Chronic atrial fibrillation with rapid ventricular response Cyclic vomiting syndrome Hypomagnesemia NPDR (nonproliferative diabetic retinopathy) Chronic vomiting Peripheral vascular occlusive disease Anxiety Renal cell carcinoma Atherosclerosis of coronary artery of [place] heart without angina pectoris Essential (primary) hypertension Gastro-esophageal reflux disease without esophagitis Peripheral neuropathy Chronic kidney disease, stage 3 Mild chronic obstructive pulmonary disease Type II diabetes mellitus Home Medications ?Medication ?Instructions ?Recorded ?Last Taken ?Type atorvastatin 80 mg tablet 80 mg PO QHS cholesterol 07/31/17 07/17/24 History insulin human U-100 NPH-regulr 22 unit SQ BID diabetes 07/31/17 07/17/24 History 70-30 mix 100 unit/mL subcutaneous susp ondansetron HCl 8 mg tablet 8 mg PO Q8H PRN PRN 01/06/21 Unknown Rx Nausea/Vomiting #15 tabs rivaroxaban 20 mg tablet (Xarelto) 20 mg PO QHS a fib 07/07/21 07/15/24 History sertraline 100 mg tablet 100 mg PO DAILY depression 07/07/21 07/17/24 History buspirone 10 mg tablet 10 mg PO TID cyclic vommitting 09/28/23 07/17/24 History gabapentin 300 mg capsule 300 mg PO TID cyclic vomitting 09/28/23 07/17/24 History pantoprazole 40 mg tablet,delayed 40 mg PO BID cyclic vomiting 09/28/23 07/17/24 History release metoprolol succinate 100 mg 100 mg PO DAILY irreg. heart beat 03/24/24 07/17/24 History tablet,extended release 24 hr ropinirole 5 mg tablet 5 mg PO TID restless legs 03/24/24 07/17/24 History amlodipine 10 mg tablet 10 mg PO 1700 10/10/24 Unknown History aspirin 81 mg tablet,delayed 81 mg PO QHS heart 10/10/24 Unknown History release (Adult Aspirin Regimen) furosemide 20 mg tablet (Lasix) 20 mg PO DAILY PRN edema 10/10/24 Unknown History losartan 100 mg tablet 100 mg PO 1200 10/10/24 Unknown History promethazine 25 mg tablet 25 mg PO Q8H PRN PRN nausea and 10/10/24 Unknown History vomiting trazodone 50 mg tablet 50 mg PO QHS PRN sleep 10/10/24 Unknown History umeclidinium 62.5 mcg-vilanterol 1 inh inhalation DAILY wheeze 10/10/24 Unknown History 25 mcg/actuation powdr for inhalation (Anoro Ellipta) Allergy/AdvReac Type Severity Reaction Status Date / Time diphenhydramine HCl (From AdvReac restless Verified 10/10/24 16:52 Benadryl) legs dofetilide AdvReac LONG QT Verified 10/10/24 16:52 haloperidol (From Haldol) AdvReac Other Verified 10/10/24 16:52 metoclopramide (From Reglan) AdvReac restless Verified 10/10/24 16:52 legs Family History Mother Cancer Stomach Father Colon cancer Heart disease Sister Colon cancer Surgical History History of bladder repair surgery History of cardiac catheterization (~11/2023) History of angioplasty of peripheral vessel (07/2013) History of cholecystectomy (08/2019) History of radiofrequency ablation procedure for cardiac arrhythmia (03/19/16) History of cardioversion (2014) History of open reduction and internal fixation (ORIF) procedure H/O laminectomy History of colonoscopy H/O coronary artery bypass surgery (01/29/03) History of hysterectomy (1995) History of esophagogastroduodenoscopy (EGD) (01/2018) History of partial nephrectomy Social History household members: none Smoking Status: Former smoker pack-years: 40 how long ago did patient quit smokin alcohol intake: never substance use type: does not use caffeine: Yes (Occasionally) Type: carbonated beverages Review of Systems (Anesthesia) ROS Narrative System reviewed and no additional complaints, except as documented.
--- NOTE | 2024-10-12 07:45 | IMM_PTH ---
PATHOLOGY RESULTS PATIENT: TACOS ESPINOZA LOC: [facility] U#:[id number] AGE/SX: 74/F ROOM: [facility] RE10/10/[address]: Dr. Joselo aMrin DO : 1950 BED: 1 DIS: 10/12/2024 SPEC #: [id number] RECD: 10/12/24 08:57 STATUS: SO REJoseph #: [id number] MELISSA: 10/12/24 07:[address]: Felice Ruiz DEPT: IMMUNOHISTOCHEMISTRY RECD BY: Grant Gaytan ENTERED: 10/12/24 08:57 SP TYPE: IMMUNO OTHR DR: DO Dr. Joselo Reyes DO Dr. Jordan Garrison, DO Tissues: Gastric mucous membrane Procedures: H Pylori (initial) PHYSICIAN & INSTITUTION [place] [id number] SPECIMEN INFORMATION: Tissue Source: Gastric antrum biopsy Clinical Info: LGIB and BRBPR and CT evidence of subtle intraluminal hemorrhage within a loop of small bowel in the left lower quadrant with radionuclide tagged RBC scan recommended by radiologist Specimen Number: [id number] CPT code: [id number] METHODOLOGY: Deparaffinized sections of prefer/formalin-fixed tissue or PAP/DQ stained slides are incubated with monoclonal/polyclonal antibodies/oligonucleotide probes. Localization is made via biotin free immunoperoxidase method. Appropriate controls are performed and reacted as expected. Results on target cell population are indicated in the following table: RESULTS: ANTIBODY / CLONE RESULT H Pylori (polyclonal) negative AE1-3 (AE1/AE3/PCK26) negative CK8 (49wvjaP15) negative Vimentin (V9) negative CD31 (ELISE/70A) negative CD34 (QBEnd-10) negative Actin (1A4) positive Desmin (CE-R-11) positive S-100 (4C4.9) negative Ki-67 (30-9) positive, rare These tests were developed and their performance characteristics determined by [facility]. They may not have been cleared or approved by the U.S. Food and Drug Administration. The FDA has determined that such clearance or approval is not necessary. The above immunohistochemical/dualISH markers are ordered and reviewed by the Pathologist. INTERPRETATION: Gastric antrum, biopsy: Suggestive of submucosal leiomyoma. FRANCHESKA/ 10/17/2024
--- NOTE | 2024-10-12 08:14 | PN.HOSP_ITS ---
Reason for Visit Reason for Visit: Diagnoses Anemia, unspecified (10/10/24) Type 2 diabetes mellitus with hyperglycemia (10/10/24) Overweight (10/10/24) Hyperlipidemia, unspecified (10/10/24) Other chronic pain (10/10/24) Paroxysmal atrial fibrillation (10/10/24) Peripheral vascular disease, unspecified (10/10/24) Hemorrhage of anus and rectum (10/10/24) Fatty (change of) liver, not elsewhere classified (10/10/24) Radiculopathy, lumbar region (10/10/24) Low back pain, unspecified (10/10/24) Adverse effect of unspecified drugs, medicaments and biological substances, initial encounter (10/10/24) intermediate accountant (current) use of insulin (10/10/24) Presence of aortocoronary bypass graft (10/10/24) Subjective Subjective Feeling better. No abdominal pain. Objective Data Objective Data Vital Signs: Vital Signs Temp Pulse Resp BP Pulse Ox O2 Del Method 36.8 C 75 18 142/62 H 96 Room Air 10/12/24 07:37 10/12/24 07:37 10/12/24 07:37 10/12/24 07:37 10/12/24 07:37 10/12/24 03:29 Oxygen Delivery Method Room Air Weight: 86.7 kg Body Mass Index (BMI) 29.0 Intake & Output: Intake and Output for Last 24 Hours 10/10/24 10/11/24 10/12/24 23:59 23:59 23:59 Intake Total 1510 / 1510 Output Total 200 / 200 950 / 950 Balance -200 / -200 560 / 560 Lab / Micro Data 10/12/24 05:32 10/12/24 05:32 Labs: Laboratory Results - last 24 hr 10/11/24 11:42: POC Glucose 114 H 10/11/24 17:28: POC Glucose 124 H 10/11/24 22:12: POC Glucose 164 H 10/12/24 00:32: POC Glucose 156 H 10/12/24 05:32: WBC 6.8, RBC 3.70 L, Hgb 10.3 L, Hct 34.1 L, MCV 92.2, MCH 27.8, MCHC 30.2 L, RDW Std Deviation 45.8 H, RDW Coeff of Ray 13.5, Plt Count 164, MPV 9.4, Immature Gran % (Auto) 0.300, Neut % (Auto) 73.4 H, Lymph % (Auto) 18.3 L, [place] % (Auto) 6.5, Eos % (Auto) 0.9, Baso % (Auto) 0.6, Absolute Neuts (auto) 5.0, Absolute Lymphs (auto) 1.25, Nucleated RBC % 0, Sodium 140, Potassium 4.0, Chloride 110 H, Carbon Dioxide 23.0, Anion Gap 7, BUN 15, Creatinine 0.96, Estim Creat Clear Calc 61.06, Est GFR (MDRD) Af Amer 74, Est GFR (MDRD) Non-Af 61, BUN/Creatinine Ratio 15.7, Glucose 155 H, Calcium 9.0, Phosphorus 3.6, Magnesium 1.8 10/12/24 05:43: POC Glucose 138 H Micro: Microbiology 10/10/24 14:00 Stool Stool Occult Blood (MT) - Final Radiography Diagnostic Testing: Radiology Impression GI Bleed Scan Nuclear Medicine 10/11/24 09:00 IMPRESSION: 1. NEGATIVE 99m Tc ULTRATAG LABELED BLOOD POOL GASTROINTESTINAL BLEEDING EXAMINATION. 2. There is no scintigraphic evidence of active gastrointestinal hemorrhage on the current evaluation. Electronically Signed: Marvin Schaffer, at 11:59 EST , Physical Exam Const alert and no apparent distress HEENT head/scalp atraumatic and moist oral mucous membranes Resp normal respiratory effort, no retractions, no use of accessory muscles and clear to auscultation bilaterally Cardio regular rate, regular rhythm, S1 normal heart sound and S2 normal heart sound GI normal to inspection, nondistended, normoactive bowel sounds, soft to palpation, non-tender, non-distended and hepatosplenomegaly Neuro Sensorium / Orientation: awake and alert Assessment & Plan Assessment/Plan (1) BRBPR (bright red blood per rectum): (2) Anemia: QUALIFIERS: Anemia type: unspecified type Qualified Code(s): D 64.9 - Anemia, unspecified (3) Overweight (BMI 25.0-29.9): (4) NAFLD (nonalcoholic fatty liver disease): (5) Paroxysmal atrial fibrillation: (6) H/O coronary artery bypass surgery: (7) Peripheral vascular occlusive disease: (8) Type 2 diabetes mellitus with hyperglycemia: QUALIFIERS: Diabetes mellitus jail insulin use: with intermediate accountant use Qualified Code(s): E11.65 - Type 2 diabetes mellitus with hyperglycemia; Z79.4 - intermediate accountant (current) use of insulin (9) Hyperlipidemia: QUALIFIERS: Hyperlipidemia type: unspecified Qualified Code(s): E 78.5 - Hyperlipidemia, unspecified (10) Chronic back pain: QUALIFIERS: Back pain laterality: bilateral Back pain location: l ow back pain Sciatica presence: without sciatica Qualified Code(s): M54.50 - Low back pain, unspecified; G89.29 - Other chronic pain (11) Lumbar radiculopathy: PLAN: Plan GI bleed * Resolved. CT could not exclude subtle intraluminal hemorrhage within a loop of small bowel in the LLQ. Bleeding scan was negative. * Hemoglobin stable * GI consult * Hold ASA and rivaroxaban. * Colonoscopy Nonbleeding external and internal hemorrhoids. Diverticulosis in the rectosigmoid colon. * EGD Showed no gross lesions in the entire esophagus. Single gastric polyp that was resected and retrieved. * Given her abdominal symptoms with BRBPR, I actually suspect a lower GI source of bleeding (i internal hemorrhoids, divertiuclosis, etc.) compounded by her use of rivaroxaban. * No additional workup necessary at this time. Advised patient to resume her rivaroxaban in 48 hours. Chronic conditions: * PAF; on Xarelto s/p DCCV (2014) & radiofrequency ablation (2015) * CAD; s/p CABG x 2 (2002) with subsequent [facility] (11/2023) on BASA (I cannot verify this as Q-go is not working at this time) * PVD; with claudication s/p angioplasty (2012) * DM-2; of unknown control on NPH and R-insulin with history of nonproliferative diabetic retinopathy - Keep NPO for now. FSBS q. 6 hours plus lowest intensity SSI. HgbA1c 7.6 * CKD; stage III, history of Renal Cell Carcinoma; s/p partial Right nephrectomy VTE prophylaxis: SCDs. Discharge home
--- NOTE | 2024-10-12 08:23 | OP.EGD_ITS ---
Patient Name: Brigitte Ham Procedure Date: 10/12/2024 7:39 AM Date of : 1950 Age: 74 Procedure: Upper GI endoscopy Indications: Acute post hemorrhagic anemia, Melena Providers: Felice Ruiz DO Medicines: Monitored Anesthesia Care Patient Profile: This is a 74 year old female. Refer to note in patient chart for documentation of history and physical. Patient has symptoms of acute right upper quadrant abdominal pain and acute epigastric abdominal pain. Complications: No immediate complications. Procedure: Pre-Anesthesia Assessment: - Prior to the procedure, a History and Physical was performed, and patient medications and allergies were reviewed. The patient is competent. The risks and benefits of the procedure and the sedation options and risks were discussed with the patient. All questions were answered and informed consent was obtained. Patient identification and proposed procedure were verified by the physician in the pre-procedure area. Mental Status Examination: alert and oriented. Airway Examination: normal oropharyngeal airway and neck mobility. Respiratory Examination: clear to auscultation. CV Examination: normal. Prophylactic Antibiotics: The patient does not require prophylactic antibiotics. Prior Anticoagulants: The patient has taken no anticoagulant or antiplatelet agents. ASA Grade Assessment: III - A patient with severe systemic disease. After reviewing the risks and benefits, the patient was deemed in satisfactory condition to undergo the procedure. The anesthesia plan was to use monitored anesthesia care (MAC). Immediately prior to administration of medications, the patient was re-assessed for adequacy to receive sedatives. The heart rate, respiratory rate, oxygen saturations, blood pressure, adequacy of pulmonary ventilation, and response to care were monitored throughout the procedure. The physical status of the patient was re-assessed after the procedure. After obtaining informed consent, the endoscope was passed under direct vision. Throughout the procedure, the patient's blood pressure, pulse, and oxygen saturations were monitored continuously. The Colonoscope was introduced through the mouth, and advanced to the second part of duodenum. The upper GI endoscopy was accomplished without difficulty. The patient tolerated the procedure well. Scope In: 7:54:18 AM Scope Out: 8:02:01 AM Total Procedure Duration Time 0 hours 7 minutes 43 seconds Findings: No gross lesions were noted in the entire esophagus. A single 10 mm sessile polyp with bleeding and stigmata of recent bleeding was found in the gastric antrum. The polyp was removed with a hot snare. Resection and retrieval were complete. To prevent bleeding post-intervention, two hemostatic clips were successfully placed. Clip bander hand: Loopd Via. There was no bleeding at the end of the procedure. No gross lesions were noted in the second portion of the duodenum. Impression: - No gross lesions in the entire esophagus. - A single gastric polyp. Resected and retrieved. Clips were placed. Clip bander hand: [employer]. - No gross lesions in the second portion of the duodenum. Recommendation: - Discharge patient to home. - Resume regular diet. - Continue present medications. - Await pathology results. - Repeat upper endoscopy in 3 months for surveillance. Procedure Code(s): --- Professional --- 66533, Esophagogastroduodenoscopy, flexible, transoral; with removal of tumor(s), polyp(s), or other lesion(s) by snare technique CPT copyright 2021 [employer]. All rights reserved. The codes documented in this report are preliminary and upon medical csr review may be revised to meet current compliance requirements. Felice Ruiz DO 10/12/2024 8:22:47 AM This report has been signed electronically. Number of Addenda: 0 Note Initiated On: 10/12/2024 7:39 AM
--- NOTE | 2024-10-12 08:23 | OP.CCLET_ITS ---
10/12/2024 Tae Banegas [address] [place] [address] Re : Upper GI endoscopy procedure for Brigitte Ham Dear Dr. Banegas This procedure was performed on September. My impressions and recommendations are as follows: Impressions : - No gross lesions in the entire esophagus. - A single gastric polyp. Resected and retrieved. Clips were placed. 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 - No gross lesions in the second portion of the duodenum. Recommendations : - Discharge patient to home. - Resume regular diet. - Continue present medications. - Await pathology results. - Repeat upper endoscopy in 3 months for surveillance. My findings are described in the full procedure note, which is enclosed. If I can be of further assistance, please feel free to contact me at . Sincerely, Felice Ruiz, 10/12/2024 8:22:47 AM This report has been signed electronically.
--- NOTE | 2024-10-12 08:26 | OP.COLON_ITS ---
Patient Name: Brigitte Ham Procedure Date: 10/12/2024 8:02 AM Date of : 1950 Age: 74 Procedure: Colonoscopy Indications: Hematochezia Providers: Felice Ruiz DO Medicines: Monitored Anesthesia Care Patient Profile: This is a 74 year old female. Refer to note in patient chart for documentation of history and physical. Patient has symptoms of acute right upper quadrant abdominal pain and acute epigastric abdominal pain. Last Colonoscopy: date unknown. Unable to locate last colonoscopy report. Complications: No immediate complications. Procedure: Pre-Anesthesia Assessment: - Prior to the procedure, a History and Physical was performed, and patient medications and allergies were reviewed. The patient is competent. The risks and benefits of the procedure and the sedation options and risks were discussed with the patient. All questions were answered and informed consent was obtained. Patient identification and proposed procedure were verified by the physician in the pre-procedure area. Mental Status Examination: alert and oriented. Airway Examination: normal oropharyngeal airway and neck mobility. Respiratory Examination: clear to auscultation. CV Examination: normal. Prophylactic Antibiotics: The patient does not require prophylactic antibiotics. Prior Anticoagulants: The patient has taken no anticoagulant or antiplatelet agents. ASA Grade Assessment: III - A patient with severe systemic disease. After reviewing the risks and benefits, the patient was deemed in satisfactory condition to undergo the procedure. The anesthesia plan was to use monitored anesthesia care (MAC). Immediately prior to administration of medications, the patient was re-assessed for adequacy to receive sedatives. The heart rate, respiratory rate, oxygen saturations, blood pressure, adequacy of pulmonary ventilation, and response to care were monitored throughout the procedure. The physical status of the patient was re-assessed after the procedure. After I obtained informed consent, the scope was passed under direct vision. Throughout the procedure, the patient's blood pressure, pulse, and oxygen saturations were monitored continuously. The Colonoscope was introduced through the anus and advanced to the terminal ileum. The colonoscopy was performed without difficulty. The patient tolerated the procedure well. The quality of the bowel preparation was adequate. Scope In: 8:05:15 AM Scope Withdrawal Time 0 hours 5 minutes 59 seconds Scope Out: 8:16:22 AM Total Procedure Duration Time 0 hours 11 minutes 7 seconds Findings: The perianal and digital rectal examinations were normal. Non-bleeding external and internal hemorrhoids were found during retroflexion. The hemorrhoids were large and Grade III (internal hemorrhoids that prolapse but require manual reduction). Multiple small and large-mouthed diverticula were found in the recto-sigmoid colon, sigmoid colon and descending colon. The exam was otherwise without abnormality on direct and retroflexion views. The terminal ileum appeared normal. Impression: - Non-bleeding external and internal hemorrhoids. - Diverticulosis in the recto-sigmoid colon, in the sigmoid colon and in the descending colon. - The examination was otherwise normal on direct and retroflexion views. - The examined portion of the ileum was normal. - No specimens collected. Recommendation: - Discharge patient to home. - Resume regular diet. - Continue present medications. - Repeat colonoscopy in 5 years for surveillance. Procedure Code(s): --- Professional --- 09055, Colonoscopy, flexible; diagnostic, including collection of specimen(s) by brushing or washing, when performed (separate procedure) CPT copyright 2021 [employer]. All rights reserved. The codes documented in this report are preliminary and upon outpatient coder review may be revised to meet current compliance requirements. Felice Ruiz DO 10/12/2024 8:25:58 AM This report has been signed electronically. Number of Addenda: 0 Note Initiated On: 10/12/2024 8:02 AM
--- NOTE | 2024-10-12 08:26 | OP.CCLET_ITS ---
10/12/2024 Tae Banegas [address] [place] [address] Re : Colonoscopy procedure for Brigitte Ham Dear Dr. Banegas This procedure was performed on September. My impressions and recommendations are as follows: Impressions : - Non-bleeding external and internal hemorrhoids. - Diverticulosis in the recto-sigmoid colon, in the sigmoid colon and in the descending colon. - The examination was otherwise normal on direct and retroflexion views. - The examined portion of the ileum was normal. - No specimens collected. Recommendations : - Discharge patient to home. - Resume regular diet. - Continue present medications. - Repeat colonoscopy in 5 years for surveillance. My findings are described in the full procedure note, which is enclosed. If I can be of further assistance, please feel free to contact me at . Sincerely, Felice Ruiz, 10/12/2024 8:25:58 AM This report has been signed electronically.
--- NOTE | 2024-10-12 08:27 | PCM.POST.ANE ---
Anesthesia: Postop Eval I Current Vital Signs Temperature: 97.8 F Pulse Rate: 72 Blood Pressure: 98/39 Respiratory Rate: 16 Pulse Ox: 96 Oxygen Delivery Method: Room Air Assessment Airway patent: Yes Spontaneous unlabored respirations: Yes Mental status: Asleep nausea: No Vomiting: No Anesthesia Complication: No Fluid Hydration Crystalloid volume administer (ml): 60 Total IV fluid infused: 60 Progress Note Anesthesia document: Postop Eval 1 completed: Yes
[2024-10-12] MEDS: Ondansetron 4 MG/2 ML Vial IV (09:32)
[2024-10-12] MEDS: Pantoprazole Sodium 40 MG in 0.9% Normal Saline (100mL MB+) 100 ML 330 MG IV (09:32)
[2024-10-12] MEDS: FLU VACCINE **HIGH DOSE** TV 24-25 180 MCG/0.5 ML SYRINGE IM (09:33)
[2024-10-12] MEDS: 0.9% Saline Lock 10 ML Syringe IV (09:36)
[2024-10-12] MEDS: Sertraline 100 MG Tablet PO (09:40)
[2024-10-12] MEDS: Morphine 2 MG/ML Syringe IV (09:46)
[2024-10-12] MEDS: Insulin Human 75/25 Kwickpen 10 UNIT SC (09:51)
[2024-10-12 10:18] LABS: Bedside Glucose 153 mg/dL (74-106)
[2024-10-12 10:37] LABS: Hemoglobin A1c 7.4 % (3.8-5.6)
--- NOTE | 2024-10-12 11:06 | DS.PCM_ITS ---
Providers Date of Admission: 10/10/24 Primary Care Physician: Dr. Tae Banegas, DO Consultations 10/10/24 21:47 Consult: Gastroenterology Routine Consulting Provider: [facility] Reason for Consult: LGIB with BRBPR on Xarelto. EMERGENT Consult: No MD Notified: Yes Date Notified: 10/10/24 Time Notified: 21:25 Method of Notification: ED Physician Initiated Reason For Visit: LGIB WITH BRBPR ON XARELTO Diagnosis Discharge Diagnosis (1) BRBPR (bright red blood per rectum): Status: Acute Code(s): K62.5 - Hemorrhage of anus and rectum (2) Anemia: Status: Acute Code(s): D64.9 - Anemia, unspecified Qualifiers: Anemia type: unspecified type Qualified Code(s): D64.9 - Anemia, unspecified (3) Overweight (BMI 25.0-29.9): Status: Acute Code(s): E66.3 - Overweight (4) NAFLD (nonalcoholic fatty liver disease): Status: Acute Code(s): K76.0 - Fatty (change of) liver, not elsewhere classified (5) Paroxysmal atrial fibrillation: Status: Chronic Code(s): I48.0 - Paroxysmal atrial fibrillation (6) H/O coronary artery bypass surgery: Status: Resolved Code(s): Z95.1 - Presence of aortocoronary bypass graft (7) Peripheral vascular occlusive disease: Status: Chronic Code(s): I73.9 - Peripheral vascular disease, unspecified (8) Type 2 diabetes mellitus with hyperglycemia: Status: Acute Code(s): E11.65 - Type 2 diabetes mellitus with hyperglycemia Qualifiers: Diabetes mellitus alf insulin use: with alf use Qualified Code(s): E11.65 - Type 2 diabetes mellitus with hyperglycemia; Z79.4 - residential (current) use of insulin (9) Hyperlipidemia: Status: Acute Code(s): E78.5 - Hyperlipidemia, unspecified Qualifiers: Hyperlipidemia type: unspecified Qualified Code(s): E78.5 - Hyperlipidemia, unspecified (10) Chronic back pain: Status: Chronic Code(s): M54.9 - Dorsalgia, unspecified; G89.29 - Other chronic pain Qualifiers: Back pain location: low back pain Back pain laterality: bilateral S ciatica presence: without sciatica Qualified Code(s): M54.50 - Low back pain, unspecified; G89.29 - Other chronic pain (11) Lumbar radiculopathy: Status: Acute Code(s): M54.16 - Radiculopathy, lumbar region Plan GI bleed * Resolved. CT could not exclude subtle intraluminal hemorrhage within a loop of small bowel in the LLQ. Bleeding scan was negative. * Hemoglobin stable * GI consult * Hold ASA and rivaroxaban. * Colonoscopy Nonbleeding external and internal hemorrhoids. Diverticulosis in the rectosigmoid colon. * EGD Showed no gross lesions in the entire esophagus. Single gastric polyp that was resected and retrieved. * Given her abdominal symptoms with BRBPR, I actually suspect a lower GI source of bleeding (i internal hemorrhoids, divertiuclosis, etc.) compounded by her use of rivaroxaban. * No additional workup necessary at this time. Advised patient to resume her rivaroxaban in 48 hours. Chronic conditions: * PAF; on Xarelto s/p DCCV (2014) & radiofrequency ablation (2015) * CAD; s/p CABG x 2 (2002) with subsequent C (11/2023) on BASA (I cannot verify this as [employer] is not working at this time) * PVD; with claudication s/p angioplasty (2012) * DM-2; of unknown control on NPH and R-insulin with history of nonproliferative diabetic retinopathy - Keep NPO for now. FSBS q. 6 hours plus lowest intensity SSI. HgbA1c 7.6 * CKD; stage III, history of Renal Cell Carcinoma; s/p partial Right nephrectomy VTE prophylaxis: SCDs. Discharge home Medications at Discharge Home Medications atorvastatin 80 mg tablet 80 mg PO QHS cholesterol 07/31/17 insulin human U-100 NPH-regulr 70-30 mix 100 unit/mL subcutaneous susp 22 unit SQ BID diabetes 07/31/17 ondansetron HCl 8 mg tablet 8 mg PO Q8H PRN PRN Nausea/Vomiting #15 tabs 01/06/21 rivaroxaban 20 mg tablet (Xarelto) 20 mg PO QHS a fib 07/07/21 sertraline 100 mg tablet 100 mg PO DAILY depression 07/07/21 buspirone 10 mg tablet 10 mg PO TID cyclic vommitting 09/28/23 gabapentin 300 mg capsule 300 mg PO TID cyclic vomitting 09/28/23 pantoprazole 40 mg tablet,delayed release 40 mg PO BID cyclic vomiting 09/28/23 metoprolol succinate 100 mg tablet,extended release 24 hr 100 mg PO DAILY irreg. heart beat 03/24/24 ropinirole 5 mg tablet 5 mg PO TID restless legs 03/24/24 amlodipine 10 mg tablet 10 mg PO 1700 10/10/24 aspirin 81 mg tablet,delayed release (Adult Aspirin Regimen) 81 mg PO QHS heart 10/10/24 furosemide 20 mg tablet (Lasix) 20 mg PO DAILY PRN edema 10/10/24 losartan 100 mg tablet 100 mg PO 1200 10/10/24 promethazine 25 mg tablet 25 mg PO Q8H PRN PRN nausea and vomiting 10/10/24 trazodone 50 mg tablet 50 mg PO QHS PRN sleep 10/10/24 umeclidinium 62.5 mcg-vilanterol 25 mcg/actuation powdr for inhalation (Anoro Ellipta) 1 inh inhalation DAILY wheeze 10/10/24 Hospital Course Procedures Colonoscopy and EGD Summary of Care Provided Minutes Spent on Discharge: 32 Hospital Course: Patient presents with lower GI bleed. Initially was concern on a CAT scan that there is upper source but bleeding scan was negative. Colonoscopy showed diverticulosis and internal hemorrhoids. No active bleeding, however. Is likely that those were the source of the bleeding Compal by the fact the patient takes rivaroxaban. Patient's hemoglobin has remained stable since she has been here. Patient is otherwise stable will be discharged home and will be advised to resume her rivaroxaban in 48 hours. Weight / BMI Weight Weight: 86.7 kg Body Mass Index (BMI) 29.0 ABG / Lab / Microbiology Data 10/12/24 05:32 10/12/24 05:32 Laboratory: Laboratory Results - last 24 hr 10/11/24 11:42: POC Glucose 114 H 10/11/24 17:28: POC Glucose 124 H 10/11/24 22:12: POC Glucose 164 H 10/12/24 00:32: POC Glucose 156 H 10/12/24 05:32: WBC 6.8, RBC 3.70 L, Hgb 10.3 L, Hct 34.1 L, MCV 92.2, MCH 27.8, MCHC 30.2 L, RDW Std Deviation 45.8 H, RDW Coeff of Ray 13.5, Plt Count 164, MPV 9.4, Immature Gran % (Auto) 0.300, Neut % (Auto) 73.4 H, Lymph % (Auto) 18.3 L, [place] % (Auto) 6.5, Eos % (Auto) 0.9, Baso % (Auto) 0.6, Absolute Neuts (auto) 5.0, Absolute Lymphs (auto) 1.25, Nucleated RBC % 0, Sodium 140, Potassium 4.0, Chloride 110 H, Carbon Dioxide 23.0, Anion Gap 7, BUN 15, Creatinine 0.96, Estim Creat Clear Calc 61.06, Est GFR (MDRD) Af Amer 74, Est GFR (MDRD) Non-Af 61, BUN/Creatinine Ratio 15.7, Glucose 155 H, Hemoglobin A1c 7.4 H, Calcium 9.0, Phosphorus 3.6, Magnesium 1.8 10/12/24 05:43: POC Glucose 138 H 10/12/24 09:50: POC Glucose 153 H Microbiology: Microbiology 10/10/24 14:00 Stool Stool Occult Blood (MT) - Final Radiography Diagnostic Testing: Radiology Impression GI Bleed Scan Nuclear Medicine 10/11/24 09:00 IMPRESSION: 1. NEGATIVE 99m Tc ULTRATAG LABELED BLOOD POOL GASTROINTESTINAL BLEEDING EXAMINATION. 2. There is no scintigraphic evidence of active gastrointestinal hemorrhage on the current evaluation. Electronically Signed: Marvin Schaffer, at 11:59 EST Reading Location ID and State: [facility] / [place] Tel , Service support , D/C Instructions Discharge Diet: 2000 Calorie Control Diet DC O2, CPAP, BIPAP Needs Additional Home O2 Discharge instructions: No DC home with Oxygen: No Meaningful Use Info Meaningful Use Meaningful Use Diagnoses (Choose all that apply): None applicable Ischemic Stroke Statin Dosing Therapy Reference: STATIN DOSE THERAPY REFERENCE: * Patients > 75 years receive moderate or high dose statin therapy. * Patients 75 years or YOUNGER should receive HIGH intensity statin dose unless contraindicated. You will be required to document reason for non-treatment if statin daily dose does not meet guidelines. HIGH DOSE STATIN THERAPY DAILY Atorvastatin > than or = to 40 mg Rosuvastatin > than or = to 20 mg Amlodipine + Atorvastatin > than or = to 2.5/40 mg Ezetimibe + Simvastatin 10/80 mg Simvastatin 80mg Discharge Plan Admission Admit Date/Time: 10/10/24 21:22 Primary Reason for Your Visit: GI bleed. Attending Provider: Joselo Marin Primary Care Provider: Tae Bangeas Consulting Providers: Sudarshan Cedillo Instructions Additional Instructions / Restrictions: You had a lower gastrointestinal bleed though that was not seen on your colonoscopy. Likely source of your bleeding is either your diverticulosis or internal hemorrhoid that was bleeding and blood more due to being on Xarelto. No additional workup is necessary here. Your hemoglobin (blood count) has been stable since you have been here. Would advise you resuming your Xarelto in 2 more days. If you have recurrent bleeding in the future, notify your physicians or return to the emergency room. Discharge Orders/Prescriptions Prescriptions: Continued buspirone 10 mg tablet 10 mg PO TID gabapentin 300 mg capsule 300 mg PO TID pantoprazole 40 mg tablet,delayed release (DR/EC) 40 mg PO BID metoprolol succinate 100 mg tablet extended release 24 hr 100 mg PO DAILY ropinirole 5 mg tablet 5 mg PO TID Patient Comments: per patient she takes at 1200, 1700, and HS insulin NPH and regular human 100 UNIT/ML suspension 22 unit SQ BID atorvastatin 80 MG tablet 80 mg PO QHS ondansetron HCl 8 MG tablet 8 mg PO Q8H PRN PRN (Reason: Nausea/Vomiting) Qty: 15 0RF sertraline 100 mg tablet 100 mg PO DAILY losartan 100 mg tablet 100 mg PO 1200 amlodipine 10 mg tablet 10 mg PO 1700 trazodone 50 mg tablet 50 mg PO QHS PRN (Reason: sleep) furosemide [Lasix] 20 mg tablet 20 mg PO DAILY PRN (Reason: edema) promethazine 25 mg tablet 25 mg PO Q8H PRN PRN (Reason: nausea and vomiting) Anoro Ellipta 62.5-25 mcg/actuation blister with device 1 inh inhalation DAILY Held Xarelto 20 mg tablet 20 mg PO QHS Hold Instructions: Resume on 10/14/24. aspirin [Adult Aspirin Regimen] 81 mg tablet,delayed release (DR/EC) 81 mg PO QHS Hold Instructions: Resume on 10/14/24. Referrals / Follow Up: [facility] [Provider Group] - Within 3 Months Tae Banegas DO [Primary Care Provider] - Within 2 Weeks Disposition Disposition (needs filled in before D/C Order can be placed): Home, Self Care Charges/Coding Visit Charges Inpatient E&M: 15308 Disch Hosp >30min
--- NOTE | 2024-10-12 11:23 | CASEMGMT ---
MIRLANDE called patient's [facility] protective services case worker Audrey Gomez and left her a voice mail letting her know patient is being discharged today with [facility] Group Home, PT, and OT. Jen CARRILLO
--- NOTE | 2024-10-12 12:00 | CASEMGMT ---
Patient has order for discharge. JULIA TOWNSEND called and updated [facility] that patient will be discharging, start of care planned for tomorrow. JULIA TOWNSEND in to discuss discharge with patient and updated regarding [facility] start of care. Patient states she will be discharing to her [place] home and will be moving to [place] next week. Patient denies further needs or concerns at discharge. Patient had no further questions. JULIA TOWNSEND updated discharge plan. JULIA TOWNSEND called [facility] to update that patient will be discharging to her home in [place].
[2024-10-12] MEDS: busPIRone 5 MG Tablet 10 MG PO (12:15)
[2024-10-12] MEDS: Pramipexole Di-HCl 0.5 MG Tablet 1.5 MG PO (12:15)
--- NOTE | 2024-10-12 12:20 | PCM.POSTANE2 ---
Anesthesia Postop Eval I Sum Postop Eval Completion status Anesthesia document: Postop Eval 1 completed: Yes Anesthesia Postop Eval I Summary Anesthesia Postop Eval I Summary: Anesthesia Postop Eval I: Assessment Summary Airway patent Yes 10/12/24 08:28 [email or web address] Spontaneous unlabored Yes 10/12/24 08:28 [email or web address] respirations Mental status Asleep 10/12/24 08:28 [email or web address] nausea No 10/12/24 08:28 [email or web address] Vomiting No 10/12/24 08:28 [email or web address] Anesthesia Postop Eval I: Fluid Summary Crystalloid volume administer 60 10/12/24 08:28 [email or web address] (ml) Colloids volume administered ( ml) Blood Product volume administered (ml) Total IV fluid infused 60 10/12/24 08:28 [email or web address] Anesthesia Postop Eval I: Summary Notes Anesthesia Complication No 10/12/24 08:28 [email or web address] Anesthesia Complication Comment: Post-operative progress note Anesthesia: Postop Eval II Evaluation Mental status: Awake and Calm Pain Level: 0 nausea: No Vomiting: No Complications Anesthesia Complication: No
[2024-10-12] MEDS: Gabapentin 300 MG Capsule PO (12:25)
[2024-10-12] MEDS: Insulin Lispro 100 UNIT/ML INSULN.PEN SC (12:25)
[2024-10-12 13:06] LABS: Bedside Glucose 191 mg/dL (74-106)
== END 2024-10-12 16:25 | disposition home health service (06) | DRG 378 ==
LOC: ED 21:01 → PCU 22:43
PROVIDERS: Anesthesiology; Internal Medicine Gastroenterology; Admitting Provider Internal Medicine; Emergency Provider Emergency Medicine; PCP Student in an Organized Health Care Education/Training Program
PROC: 0DJD8ZZ Inspection of Lower Intestinal Tract, Via Natural or Artificial Opening Endoscopic (ICD-10-PCS; CPT 45378; principal; 2024-10-12 07:40)
DX: K57.31 Diverticulosis of large intestine without perforation or abscess with bleeding (principal); D68.32 Hemorrhagic disorder due to extrinsic circulating anticoagulants; D62 Acute posthemorrhagic anemia; D63.1 Anemia in chronic kidney disease; G25.81 Restless legs syndrome; I48.0 Paroxysmal atrial fibrillation; N18.30 Chronic kidney disease, stage 3 unspecified; J44.9 Chronic obstructive pulmonary disease, unspecified; E10.22 Type 1 diabetes mellitus with diabetic chronic kidney disease; I12.9 Hypertensive chronic kidney disease with stage 1 through stage 4 chronic kidney disease, or unspecified chronic kidney disease; K76.0 Fatty (change of) liver, not elsewhere classified; F32.A Depression, unspecified; F41.9 Anxiety disorder, unspecified; E10.51 Type 1 diabetes mellitus with diabetic peripheral angiopathy without gangrene; E10.65 Type 1 diabetes mellitus with hyperglycemia; E78.00 Pure hypercholesterolemia, unspecified; Z79.4 Long term (current) use of insulin; I25.10 Atherosclerotic heart disease of native coronary artery without angina pectoris; K31.7 Polyp of stomach and duodenum; K64.2 Third degree hemorrhoids; K21.9 Gastro-esophageal reflux disease without esophagitis; T45.515A Adverse effect of anticoagulants, initial encounter; E66.3 Overweight; Z90.5 Acquired absence of kidney; Z90.49 Acquired absence of other specified parts of digestive tract; Z95.1 Presence of aortocoronary bypass graft; Z68.29 Body mass index [BMI] 29.0-29.9, adult; Z79.01 Long term (current) use of anticoagulants; Z79.82 Long term (current) use of aspirin; Z79.899 Other long term (current) drug therapy; Z85.528 Personal history of other malignant neoplasm of kidney; Z87.891 Personal history of nicotine dependence; Z23 Encounter for immunization
CPT/HCPCS: 36415; 74177; 78278; 80048; 80053; 81001; 82274; 82962; 83036; 83690; 83735; 84100; 84443; 85025; 85610; 85730; 86850; 86900; 86901; 88305; 88342; 90662; 93005; 94640; 94668; 97161; 97802; 99284; A9560; J7030; Q9967; A4216; J2405

== ENCOUNTER 2024-10-28 20:20 | Inpatient (IN) | payer MEDICARE, SELFPAY ==
[2024-10-28] VITALS (8 sets, daily range): BP systolic 127–146; BP diastolic 59–62; PULSE 62–68; RESP 16–20; TEMP 36.1–36.6; O2SAT 96–98; BMI 31.9
--- NOTE | 2024-10-28 21:16 | EKG12_ITS ---
Test Reason : SOB Blood Pressure : */* mmHG Vent. Rate : 63 BPM Atrial Rate : 63 BPM P-R Int : 166 ms QRS Dur : 92 ms QT Int : 434 ms P-R-T Axes : 65 47 15 degrees QTcB Int : 444 ms Normal sinus rhythm RSR' or QR pattern in V1 suggests right ventricular conduction delay Borderline ECG Confirmed by Boo Glass ([id number]), mapping editor MIRANDA MCLEAN ([id number]) on 10/30/2024 9:07:57 AM Referred By: Confirmed By: Boo Glass
--- NOTE | 2024-10-28 21:58 | RAD_ITS ---
INDICATION: Shortness of breath EXAMINATION/TECHNIQUE: X-RAY - XR Chest 2 Views COMPARISON: Prior study dated: 07/26/2024 FINDINGS: LINES/DEVICES: None. LUNGS: Patchy bilateral infiltrates increased compared to prior. No consolidation. No pneumothorax. MEDIASTINUM: Aorta is atherosclerotic. CARDIAC SILHOUETTE: Not enlarged. Sternal wires. BONES AND SOFT TISSUES: No acute abnormalities. RAD/Chest PA and Lateral IMPRESSION: Patchy bilateral infiltrates. Most likely inflammatory or viral pneumonitis. Electronically Signed: Heather Olsen MD at 23:01 EST ,
--- NOTE | 2024-10-28 22:04 | ED.VIS.DYS ---
HPI History of Present Illness Chief Complaint: Shortness of Breath Narrative Narrative: Chief complaint and HPI: Exertional shortness of breath. 74-year-old female with past medical history of atrial fibrillation on Xarelto, DM, HTN, CAD, presents for evaluation of exertional shortness of breath. Patient states for the past 2 days she has been having exertional shortness of breath. She denies shortness of breath at rest. Patient states that her exertional shortness of breath is progressively worsening. She states that she can barely walk across the room without stopping to catch her breath. Patient states she has a home pulse ox and she used it at home. She states that her oxygenation was in the 60s therefore EMS was called. On EMS arrival, patient's oxygenation was in the 90s. Patient states she has not missed any doses of her Xarelto. She states that she did not take her nighttime insulin. She states that she has had mild bilateral lower extremity edema. Denies any history of heart failure. Denies any fever, chills, URI symptoms, chest pain abdominal pain, nausea, vomiting, dysuria. Review of systems: See HPI Medications: As listed on the chart Allergies: As listed on the chart PFSH: Per chart Vital signs: As listed on the chart. Reviewed. Gen: A&O x3, NAD Head: Normocephalic, atraumatic Eyes: No sclera icterus, conjunctiva clear ENT: Moist mucous membranes Neck: Trachea midline CV: RRR, no murmurs, mild bilateral peripheral edema-nonpitting Resp: Lungs diminished in the bilateral bases, no w/r/c GI: Abd soft, non-distended, non-tender, no r/r/g Musc: Full ROM, no deformity Skin: Warm, dry Neuro: Alert, oriented, grossly intact, sensation intact Psych: Cooperative, appropriate mood and affect [facility] Medical History History of stress test Wears glasses Wears dentures Cancer Depression Insulin dependent diabetes mellitus Walker as ambulation aid Arthritis Fatty liver High cholesterol Restless legs History of hiatal hernia Shortness of breath on exertion Former smoker Asthma COPD (chronic obstructive pulmonary disease) Leg cramps History of echocardiogram History of stress test Cardiology follow-up encounter History of atrial fibrillation Fracture of right femur Acute dehydration Chronic atrial fibrillation with rapid ventricular response Cyclic vomiting syndrome Hypomagnesemia NPDR (nonproliferative diabetic retinopathy) Chronic vomiting Peripheral vascular occlusive disease Anxiety Renal cell carcinoma Atherosclerosis of coronary artery of [place] heart without angina pectoris Essential (primary) hypertension Gastro-esophageal reflux disease without esophagitis Peripheral neuropathy Chronic kidney disease, stage 3 Mild chronic obstructive pulmonary disease Type II diabetes mellitus Home Medications ?Medication ?Instructions ?Recorded ?Last Taken ?Type atorvastatin 80 mg tablet 80 mg PO QHS cholesterol 07/31/17 07/17/24 History insulin human U-100 NPH-regulr 22 unit SQ BID diabetes 07/31/17 07/17/24 History 70-30 mix 100 unit/mL subcutaneous susp ondansetron HCl 8 mg tablet 8 mg PO Q8H PRN PRN 01/06/21 Unknown Rx Nausea/Vomiting #15 tabs rivaroxaban 20 mg tablet (Xarelto) 20 mg PO QHS a fib 07/07/21 07/15/24 History sertraline 100 mg tablet 100 mg PO DAILY depression 07/07/21 07/17/24 History buspirone 10 mg tablet 10 mg PO TID cyclic vommitting 09/28/23 07/17/24 History gabapentin 300 mg capsule 300 mg PO TID cyclic vomitting 09/28/23 07/17/24 History pantoprazole 40 mg tablet,delayed 40 mg PO BID cyclic vomiting 09/28/23 07/17/24 History release metoprolol succinate 100 mg 100 mg PO DAILY irreg. heart beat 03/24/24 07/17/24 History tablet,extended release 24 hr ropinirole 5 mg tablet 5 mg PO TID restless legs 03/24/24 07/17/24 History amlodipine 10 mg tablet 10 mg PO 1700 blood pressure 10/10/24 Unknown History aspirin 81 mg tablet,delayed 81 mg PO QHS heart 10/10/24 Unknown History release (Adult Aspirin Regimen) furosemide 20 mg tablet (Lasix) 20 mg PO DAILY PRN edema 10/10/24 Unknown History losartan 100 mg tablet 100 mg PO 1200 blood pressure 10/10/24 Unknown History promethazine 25 mg tablet 25 mg PO Q8H PRN PRN nausea and 10/10/24 Unknown History vomiting trazodone 50 mg tablet 50 mg PO QHS PRN sleep 10/10/24 Unknown History umeclidinium 62.5 mcg-vilanterol 1 inh inhalation DAILY wheeze 10/10/24 Unknown History 25 mcg/actuation powdr for inhalation (Anoro Ellipta) Allergy/AdvReac Type Severity Reaction Status Date / Time diphenhydramine HCl (From AdvReac restless Verified 10/28/24 20:23 Benadryl) legs dofetilide AdvReac LONG QT Verified 10/28/24 20:23 haloperidol (From Haldol) AdvReac Other Verified 10/28/24 20:23 metoclopramide (From Reglan) AdvReac restless Verified 10/28/24 20:23 legs Family History Mother Cancer Stomach Father Colon cancer Heart disease Sister Colon cancer Surgical History History of bladder repair surgery History of cardiac catheterization (~11/2023) History of angioplasty of peripheral vessel (07/2013) History of cholecystectomy (08/2019) History of radiofrequency ablation procedure for cardiac arrhythmia (03/19/16) History of cardioversion (2014) History of open reduction and internal fixation (ORIF) procedure H/O laminectomy History of colonoscopy H/O coronary artery bypass surgery (01/29/03) History of hysterectomy (1995) History of esophagogastroduodenoscopy (EGD) (01/2018) History of partial nephrectomy Social History household members: none Smoking Status: Former smoker pack-years: 40 how long ago did patient quit smokin alcohol intake: never substance use type: does not use caffeine: Yes (Occasionally) Type: carbonated beverages EXAM Physical Exam Const Vital Signs: 10/28/24 20:23 10/28/24 20:26 10/28/24 20:47 Temperature 97 F L 97 F L Temperature Source Temporal Temporal Pulse Rate 63 66 Respiratory Rate 16 18 Respiratory Effort Short of Breath Respiratory Depth Shallow Respiratory Pattern Tachypnea Blood Pressure 146/59 H 146/59 H Blood Pressure Mean 88 88 Pulse Ox 97 98 Oxygen Delivery Method Room Air Room Air Room Air 10/28/24 21:26 10/28/24 22:05 10/28/24 22:30 Temperature 97.8 F Temperature Source Oral Pulse Rate 62 64 68 Respiratory Rate 18 19 H 20 H Respiratory Effort Respiratory Depth Respiratory Pattern Blood Pressure 146/62 H Blood Pressure Mean 90 Pulse Ox 98 98 96 Oxygen Delivery Method Room Air 10/28/24 23:00 10/29/24 00:00 Temperature 97.3 F L 97.8 F Temperature Source Oral Oral Pulse Rate 68 65 Respiratory Rate 16 17 Respiratory Effort Respiratory Depth Respiratory Pattern Blood Pressure 127/60 H 162/70 H Blood Pressure Mean 82 100 Pulse Ox 97 98 Oxygen Delivery Method Room Air Room Air MDM MDM MDM Narrative Medical decision making narrative: 74-year-old female with past medical history of atrial fibrillation on Xarelto, DM, HTN, CAD, presents for evaluation of exertional shortness of breath. Differential diagnosis includes but is not limited to new onset CHF, ACS. Low risk for PE however in the differential. Does not fit viral illness. Presentation, patient is 97% on room air. Cardiac workup ordered. CBC without leukocytosis. Patient has baseline anemia. BMP shows renal insufficiency with creatinine 1.17. On chart review, patient does have a intermittent history of renal insufficiency. Hyperglycemic at 335. Patient did not take her nighttime insulin. Troponin unremarkable. BNP elevated at 437.6 this would be consistent with her exertional shortness of breath concerning for CHF. On chart review, patient's last echocardiogram was in 2018 EF was 60%. Chest x-ray was interpreted by me, ED physician. Chest x-ray with bilateral infiltrates but no pneumonia or large effusion. No pneumothorax. Chest x-ray compared to prior and infiltrates are slightly worsened. Patient does not endorsing any infectious type symptoms. Patient's D-dimer elevated at 0.65. CTA ordered to assess for PE. CTA chest without PE. Patient does have mild interstitial edema with small bilateral pleural effusions. Given patient's elevated BNP, mild peripheral edema, and CTA chest findings. Concern is for new onset CHF. Patient was ambulated in our emergency department without hypoxia however she did get symptomatically short of breath. Patient states that she does not feel comfortable discharging home as she cannot get around her house safely. Therefore hospitalist will be contacted and patient was will be discussed for admission with echocardiogram and further heart failure workup. I spoke with the hospitalist service they excepted admission. EKG: Interpreted by me/EM physician: Normal sinus rhythm heart rate of 63. No acute ischemic changes. EKG is similar to previous EKG. Impression: 1. New onset symptomatic heart failure 2. Hyperglycemia with known diabetic 3. Renal insufficiency Lab Data Labs: Laboratory Results - last 24 hr 10/28/24 21:51 WBC 8.6 RBC 3.91 L Hgb 10.8 L Hct 36.6 L MCV 93.6 MCH 27.6 MCHC 29.5 L RDW Std Deviation 47.6 H RDW Coeff of Ray 14.1 Plt Count 191 MPV 10.1 Immature Gran % (Auto) 0.600 Neut % (Auto) 69.7 Lymph % (Auto) 20.6 Tripp % (Auto) 7.1 Eos % (Auto) 1.3 Baso % (Auto) 0.7 Absolute Neuts (auto) 6.0 Absolute Lymphs (auto) 1.76 Nucleated RBC % 0 D-Dimer Quant (PE/DVT) 0.65 H* Sodium 138 Potassium 4.3 Chloride 110 H Carbon Dioxide 20.0 L Anion Gap 8 BUN 37 H Creatinine 1.17 H Estim Creat Clear Calc 52.49 Est GFR (MDRD) Af Amer 58 L Est GFR (MDRD) Non-Af 48 L BUN/Creatinine Ratio 31.6 H Glucose 335 H Calcium 9.2 Troponin I High Sens 16 B-Natriuretic Peptide 437.6 H Radiography Diagnostic Testing: Clinical Impression(s) from Imaging Studies Chest X-Ray 10/28/24 21:58 IMPRESSION: Patchy bilateral infiltrates. Most likely inflammatory or viral pneumonitis. Electronically Signed: Heather Olsen MD at 23:01 EST Reading Location ID and State: [facility] / [place] Tel , Service support , Chest CTA 10/28/24 23:08 IMPRESSION: 1. No evidence of pulmonary emboli. 2. Findings suggest mild interstitial edema. Minimal bilateral pleural effusions. Background mild interstitial disease. Electronically Signed: Heather Olsen MD at 0:15 EST Reading Location ID and State: [facility] / [place] Tel , Service support , Discharge Plan Triage Chief Complaint: Shortness of Breath ED Provider: Edwin Arredondo Dx/Rx/DC Orders Prescriptions: No Action buspirone 10 mg tablet 10 mg PO TID gabapentin 300 mg capsule 300 mg PO TID pantoprazole 40 mg tablet,delayed release (DR/EC) 40 mg PO BID metoprolol succinate 100 mg tablet extended release 24 hr 100 mg PO DAILY ropinirole 5 mg tablet 5 mg PO TID Patient Comments: per patient she takes at 1200, 1700, and HS insulin NPH and regular human 100 UNIT/ML suspension 22 unit SQ BID atorvastatin 80 MG tablet 80 mg PO QHS ondansetron HCl 8 MG tablet 8 mg PO Q8H PRN PRN (Reason: Nausea/Vomiting) Qty: 15 0RF sertraline 100 mg tablet 100 mg PO DAILY Xarelto 20 mg tablet 20 mg PO QHS losartan 100 mg tablet 100 mg PO 1200 amlodipine 10 mg tablet 10 mg PO 1700 aspirin [Adult Aspirin Regimen] 81 mg tablet,delayed release (DR/EC) 81 mg PO QHS trazodone 50 mg tablet 50 mg PO QHS PRN (Reason: sleep) furosemide [Lasix] 20 mg tablet 20 mg PO DAILY PRN (Reason: edema) promethazine 25 mg tablet 25 mg PO Q8H PRN PRN (Reason: nausea and vomiting) Anoro Ellipta 62.5-25 mcg/actuation blister with device 1 inh inhalation DAILY Primary Care Provider: Tae Banegas Referrals: Tae Banegas DO [Primary Care Provider] - Print Language: Azeri
[2024-10-28 22:05] LABS: Absolute Lymphocyte Count 1.76 X10^3/uL (0.83-4.51); Basophil# 0.06 X10^3/uL; Basophil% 0.7 % (0-1); Eosinophil# 0.11 X10^3/uL; Eosinophils% 1.3 % (0-5); Hematocrit 36.6 % (37-47); Hemoglobin 10.8 g/dL (12.0-15.0); Lymphocyte # 1.76 X10^3/ul (0.83-4.51); Lymphocyte % 20.6 % (19-41); Mean Corp Hgb Conc 29.5 g/dL (32-36); Mean Corpuscular Hgb 27.6 pg (27.0-32.0); Mean Corpuscular Volume 93.6 fL (81-99); Mean Platelet Vol. 10.1 fl (6.2-12.0); Monocyte# 0.61 X10^3/uL; Monocyte% 7.1 % (0-10); NRBC Flagged by Analyzer 0 % (0-5); Neutrophil # 5.97 X10^3/uL (2.7-7.7); Neutrophil % 69.7 % (47-70); Platelet Count 191 K/mm3 (150-450); RBC Distribution Width CV 14.1 % (11.6-14.6); RBC Distribution Width SD 47.6 fl (35.1-43.9); Red Blood Count 3.91 M/mm3 (4.2-5.4); White Blood Count 8.6 K/mm3 (4.4-11.0)
[2024-10-28 22:20] LABS: Anion Gap 8 (5-15); BUN 37 mg/dL (7-18); BUN/Creat Ratio 31.6 RATIO (10-20); Calcium,Total 9.2 mg/dL (8.5-10.1); Chloride 110 mmol/L (98-107); Creatinine, Serum 1.17 mg/dL (0.55-1.02); EST Glomerular Filtration Rate 48 mL/min (>60); Est Glom Filt Rate - Afr Amer 58 mL/min (>60); Estimated Creatinine Clearance 52.49 ml/min; Glucose 335 mg/dL (74-106); Potassium 4.3 mmol/L (3.5-5.1); Sodium Level 138 mmol/L (136-145); Troponin-I HS 16 pg/mL (3.0-54.0)
[2024-10-28 22:23] LABS: D-Dimer Quantitative (DVT/PE) 0.65 FEU/ug/m (0.27-0.49)
[2024-10-28 22:25] LABS: BNP,B-Type NATRIURETIC PEPTIDE 437.6 pg/mL (0-100)
--- NOTE | 2024-10-28 23:08 | CT_ITS ---
STUDY: CTA CHEST REASON FOR EXAM: Female, 74 years old. Assess for PE SOB X 2 DAYS WITH EXERTION, ON THINNERS, OPEN HEART HX RADIATION DOSAGE (If Supplied By Facility): CTDIvol = ( 33.72 ) mGy, DLP = ( 577.44 ) mGycm TECHNIQUE: The examination was performed with the intravenous administration of IV 100mL [id number]-370. Post-processing of the angiographic images was performed, with multiplanar reformation and 3D reconstruction. The protocol utilizes one or more of the following dose reduction techniques: automated exposure control, adjustment of mA and/or kV according to patient size,and/or use of iterative reconstruction technique. COMPARISON: Prior study dated: CT abdomen pelvis 10/10/2024 FINDINGS: LUNGS: Mild hazy opacities throughout the lungs with septal thickening. Prominent interstitial markings subpleural bilaterally similar to prior, likely chronic. No consolidation. PLEURA: Small bilateral pleural effusions. No pneumothorax. PULMONARY VESSELS: No pulmonary emboli identified. MEDIASTINUM: Unremarkable. HEART: Mildly enlarged. Sternal wires. AORTA/GREAT VESSELS: Thoracic aorta is normal caliber. No aneurysm or dissection. UPPER ABDOMEN: No acute findings. Moderate-sized hiatal hernia. BONES/SOFT TISSUES: No acute findings. OTHER: None. CT/CTA Chest W/WO Contrast IMPRESSION: 1. No evidence of pulmonary emboli. 2. Findings suggest mild interstitial edema. Minimal bilateral pleural effusions. Background mild interstitial disease. Electronically Signed: Heather Olsen MD at 0:15 EST ,
[2024-10-29] VITALS (12 sets, daily range): BP systolic 93–162; BP diastolic 38–70; PULSE 62–74; RESP 16–18; TEMP 36.2–36.6; O2SAT 94–98; BMI 31.1; BMI 30.7
[2024-10-29] MEDS: 0.9% Normal Saline (500mL Bag) 500 ML 999 ML IV (00:04)
--- NOTE | 2024-10-29 00:34 | HP.PCM.HOS_ITS ---
[facility] - General General Date of Admission: 10/29/24 Date of Service: 10/29/24 Chief Complaint: SOB and LE Edema. HPI Narrative TACOS ESPINOZA, is a 74 F with a past medical history of essential hypertension; on amlodipine, losartan, metoprolol and prn furosemide for edema, hyperlipidemia; on atorvastatin, obesity; with BMI of 32 this admission, NAFLD, history of tobacco abuse (quit 2008); with subsequent asthma/COPD, CAD; s/p CABG x 2 (2002) with subsequent [facility] (11/2023) on BASA, DM-2; of unknown control on NPH insulin 22 sq. BID + SSI, diabetic neuropathy; on gabapentin, history of nonproliferative diabetic retinopathy, history of atrial fibrillation; on rivaroxaban s/p DCCV (2014) & radiofrequency ablation (2015), PVD; with claudication s/p angioplasty (2012), CKD; stage III, chronic anemia, history of Renal Cell Carcinoma; s/p partial Right nephrectomy (2014), history of bladder repair surgery, RLS; on ropinirole, history of depression; on buspirone, sertraline and trazodone along with listed allergy to Dofetilide (long QT), listed allergy to Haldol (?), history of cyclic vomiting syndrome; with listed allergy to Reglan and Benadryl (restless legs), history of cholecystectomy (2018), history of hysterectomy (1995), history of Right femur fracture; s/p ORIF, OA; with DDD and Lumbar Spinal Stenosis with Radiculopathy; s/p Laminectomy and Muscle Spasms, Chronic Back Pain; on Methocarbamol q. 6 h prn plus Oxycodone q. 4h prn and Chronic Debility; with patient using a walker to mobilize and recent admission here from October 10, 2024 to October 12, 2024 for LGIB with BRBPR suspected to be due to adverse drug reaction to combination of BASA and Xarelto with subsequent colonoscopy showing nonbleeding external and internal hemorrhoids and diverticulosis in the rectosigmoid colon and EGD revealing no gross lesions in the entire esophagus with a single gastric polyp that was resected and retrieved who now re-presents to [facility] ER complaining of shortness of breath and lower extremity edema. Ms. Espinoza reports her symptoms began approximately 2 days prior to admission when she noted worsening dyspnea on exertion. She states she can barely walk across the room without stopping to catch her breath which is new for her. She then used her pulse-oximeter from home which revealed oxygen saturation that was allegedly in the ~60% range so she activated EMS. She states that she has not missed any doses of her medications including her Xarelto but she does admit to [id number] bilateral lower extremity pitting edema that is now persistent and worsening. She denies a history of heart failure. She denies associated fever, chills, nausea, vomiting, diarrhea, constipation, chest pain, sinus congestion, cough or dysuria. In the ER she was noted to have an elevated D- dimer of 0.65 present on admission and then she underwent a CTA of the chest that was negative for PE but positive for pulmonary vascular congestion with an elevated BNP of 437.6 present on admission consistent with suspected AE CHF of uncertain type complicated by clinical evidence of acute respiratory insufficiency with a stable hemoglobin of 10.8 g/dL present on admission. She was then admitted to the PCU for ongoing care for stay that is expected to extend beyond 2 midnights. [facility] Medical History (Updated 10/29/24 @ 07:[address] Sudarshan Cedillo, DO) Paroxysmal atrial fibrillation NAFLD (nonalcoholic fatty liver disease) Overweight (BMI 25.0-29.9) Anemia Hyperlipidemia Type 2 diabetes mellitus with hyperglycemia Lumbar radiculopathy Chronic back pain History of stress test Wears glasses Wears dentures Cancer Depression Insulin dependent diabetes mellitus Walker as ambulation aid Arthritis Fatty liver High cholesterol Restless legs History of hiatal hernia Shortness of breath on exertion Former smoker Asthma COPD (chronic obstructive pulmonary disease) Leg cramps History of echocardiogram History of stress test Cardiology follow-up encounter History of atrial fibrillation Fracture of right femur Acute dehydration Chronic atrial fibrillation with rapid ventricular response Cyclic vomiting syndrome Hypomagnesemia NPDR (nonproliferative diabetic retinopathy) Chronic vomiting Peripheral vascular occlusive disease Anxiety Renal cell carcinoma Atherosclerosis of coronary artery of [place] heart without angina pectoris Essential (primary) hypertension Gastro-esophageal reflux disease without esophagitis Peripheral neuropathy Chronic kidney disease, stage 3 Mild chronic obstructive pulmonary disease Type II diabetes mellitus Home Medications ?Medication ?Instructions ?Recorded ?Last Taken ?Type atorvastatin 80 mg tablet 80 mg PO QHS cholesterol 07/31/17 07/17/24 History insulin human U-100 NPH-regulr 22 unit SQ BID diabetes 07/31/17 07/17/24 History 70-30 mix 100 unit/mL subcutaneous susp ondansetron HCl 8 mg tablet 8 mg PO Q8H PRN PRN 01/06/21 Unknown Rx Nausea/Vomiting #15 tabs rivaroxaban 20 mg tablet (Xarelto) 20 mg PO QHS a fib 07/07/21 07/15/24 History sertraline 100 mg tablet 100 mg PO DAILY depression 07/07/21 07/17/24 History buspirone 10 mg tablet 10 mg PO TID cyclic vommitting 09/28/23 07/17/24 History gabapentin 300 mg capsule 300 mg PO TID cyclic vomitting 09/28/23 07/17/24 History pantoprazole 40 mg tablet,delayed 40 mg PO BID cyclic vomiting 09/28/23 07/17/24 History release metoprolol succinate 100 mg 100 mg PO DAILY irreg. heart beat 03/24/24 07/17/24 History tablet,extended release 24 hr ropinirole 5 mg tablet 5 mg PO TID restless legs 03/24/24 07/17/24 History amlodipine 10 mg tablet 10 mg PO 1700 blood pressure 10/10/24 Unknown History aspirin 81 mg tablet,delayed 81 mg PO QHS heart 10/10/24 Unknown History release (Adult Aspirin Regimen) furosemide 20 mg tablet (Lasix) 20 mg PO DAILY PRN edema 10/10/24 Unknown History losartan 100 mg tablet 100 mg PO 1200 blood pressure 10/10/24 Unknown History promethazine 25 mg tablet 25 mg PO Q8H PRN PRN nausea and 10/10/24 Unknown History vomiting umeclidinium 62.5 mcg-vilanterol 1 inh inhalation DAILY wheeze 10/10/24 Unknown History 25 mcg/actuation powdr for inhalation (Anoro Ellipta) Allergy/AdvReac Type Severity Reaction Status Date / Time diphenhydramine HCl (From AdvReac restless Verified 10/28/24 20:23 Benadryl) legs dofetilide AdvReac LONG QT Verified 10/28/24 20:23 haloperidol (From Haldol) AdvReac Other Verified 10/28/24 20:23 metoclopramide (From Reglan) AdvReac restless Verified 10/28/24 20:23 legs Family History Mother Cancer Stomach Father Colon cancer Heart disease Sister Colon cancer Surgical History History of bladder repair surgery History of cardiac catheterization (~11/2023) History of angioplasty of peripheral vessel (07/2013) History of cholecystectomy (08/2019) History of radiofrequency ablation procedure for cardiac arrhythmia (03/19/16) History of cardioversion (2014) History of open reduction and internal fixation (ORIF) procedure H/O laminectomy History of colonoscopy H/O coronary artery bypass surgery (01/29/03) History of hysterectomy (1995) History of esophagogastroduodenoscopy (EGD) (01/2018) History of partial nephrectomy Social History household members: none Smoking Status: Former smoker pack-years: 40 how long ago did patient quit smokin alcohol intake: never substance use type: does not use caffeine: Yes (Occasionally) Type: carbonated beverages ROS ROS Narrative Review of Systems: Constitutional: Patient denies fever or chills. Eyes: Patient denies blurry vision or discharge from eyes. ENT: Patient denies runny nose, sore throat or ear pain. Resp: Patient admits to progressively worsening DYER that proceeded to SOB at rest. CV: Patient denies chest pain, palpitations or heart racing. GI: Patient denies abdominal pain, nausea, vomiting, constipation or diarrhea. : Patient denies dysuria or hematuria. MSK: Patient denies arthralgias or myalgias. Skin: Patient denies rash, abscess or jaundice. Psych: Patient denies symptoms of uncontrolled depression or anxiety. Neuro: Patient denies headache, paresthesias or focal neurologic deficits. Allergy: Patient denies lip swelling, tongue swelling or urticaria. Hematology: Patient denies easy bleeding or easy bruisability. Endocrinology: Patient denies polyuria, polydipsia or polyphagia. 14 point review of systems otherwise negative except for positives noted above in HPI. Vital Signs Vital Signs Vital Signs: 10/28/24 20:23 10/28/24 20:26 10/28/24 20:47 Temperature 97 F L 97 F L Temperature Source Temporal Temporal Pulse Rate 63 66 Respiratory Rate 16 18 Respiratory Effort Short of Breath Respiratory Depth Shallow Respiratory Pattern Tachypnea Blood Pressure 146/59 H 146/59 H Blood Pressure Mean 88 88 Pulse Ox 97 98 Oxygen Delivery Method Room Air Room Air Room Air 10/28/24 21:26 10/28/24 22:05 10/28/24 22:30 Temperature 97.8 F Temperature Source Oral Pulse Rate 62 64 68 Respiratory Rate 18 19 H 20 H Respiratory Effort Respiratory Depth Respiratory Pattern Blood Pressure 146/62 H Blood Pressure Mean 90 Pulse Ox 98 98 96 Oxygen Delivery Method Room Air 10/28/24 23:00 10/29/24 00:00 Temperature 97.3 F L 97.8 F Temperature Source Oral Oral Pulse Rate 68 65 Respiratory Rate 16 17 Respiratory Effort Respiratory Depth Respiratory Pattern Blood Pressure 127/60 H 162/70 H Blood Pressure Mean 82 100 Pulse Ox 97 98 Oxygen Delivery Method Room Air Room Air Weight Weight: 210 lb 5.136 oz Body Mass Index (BMI) 31.9 Physical Exam Const alert, oriented x3 and average body habitus Constitutional Narrative: Mildly labored breathing noted with patient chronically ill in appearance. General Appearance: cooperative HEENT normocephalic, head/scalp atraumatic, hearing grossly normal bilaterally and moist oral mucous membranes Eyes PERRL and EOMs intact bilaterally Neck no lymphadenopathy and supple Resp Resp Narrative: Diminished breath sounds throughout. Cardio regular rate and regular rhythm GI normal to inspection, nondistended, normoactive bowel sounds, soft to palpation, non-tender and non-distended Extremity Extremity Narrative: Patient has mild to 1-2+ bilateral lower extremity pitting edema with no signs of vascular compromise. Skin Skin Narrative: Patient has no evidence of rash, abscess or jaundice. Neuro oriented x3, CN's II-XII intact bilaterally, moves all extremities and no focal motor deficits Sensorium / Orientation: awake, alert, oriented to person, oriented to place and oriented to time Speech: speech normal Psych affect normal Results Medical Records Data Attestation: I reviewed the patient's medical records Lab / Micro Data Attestation: I reviewed the patient's lab results. 10/29/24 05:34 10/29/24 05:34 Labs: Laboratory Results - last 24 hr 10/28/24 21:51: WBC 8.6, RBC 3.91 L, Hgb 10.8 L, Hct 36.6 L, MCV 93.6, MCH 27.6, MCHC 29.5 L, RDW Std Deviation 47.6 H, RDW Coeff of Ray 14.1, Plt Count 191, MPV 10.1, Immature Gran % (Auto) 0.600, Neut % (Auto) 69.7, Lymph % (Auto) 20.6, [place] % (Auto) 7.1, Eos % (Auto) 1.3, Baso % (Auto) 0.7, Absolute Neuts (auto) 6.0, Absolute Lymphs (auto) 1.76, Nucleated RBC % 0, D-Dimer Quant (PE/DVT) 0.65 H*, Sodium 138, Potassium 4.3, Chloride 110 H, Carbon Dioxide 20.0 L, Anion Gap 8, BUN 37 H, Creatinine 1.17 H, Estim Creat Clear Calc 52.49, Est GFR (MDRD) Af Amer 58 L, Est GFR (MDRD) Non-Af 48 L, BUN/Creatinine Ratio 31.6 H, Glucose 335 H, Calcium 9.2, Troponin I High Sens 16, B-Natriuretic Peptide 437.6 H Imaging Radiology Impression Chest X-Ray 10/28/24 21:58 IMPRESSION: Patchy bilateral infiltrates. Most likely inflammatory or viral pneumonitis. Electronically Signed: Heather Olsen MD at 23:01 EST , Chest CTA 10/28/24 23:08 IMPRESSION: 1. No evidence of pulmonary emboli. 2. Findings suggest mild interstitial edema. Minimal bilateral pleural effusions. Background mild interstitial disease. Electronically Signed: Heather Olsen MD at 0:15 EST , Assessment & Plan Assessment/Plan (1) CHF exacerbation: QUALIFIERS: Heart failure type: unspecified Qualified Code(s): I 50.9 - Heart failure, unspecified (2) Respiratory insufficiency: (3) Obesity (BMI 30.0-34.9): (4) Essential hypertension: (5) Generalized weakness: (6) Paroxysmal atrial fibrillation: (7) Atherosclerosis of coronary artery of [place] heart without angina pectoris: QUALIFIERS: Coronary Disease-Associated Artery/Lesion type: [place] artery Qualified Code(s): I25.10 - Atherosclerotic heart disease of [place] coronary artery without angina pectoris PLAN: Plan 1. CTA of the chest that was negative for PE but positive for pulmonary vascular congestion with an elevated BNP of 437.6 present on admission consistent with suspected AE CHF of uncertain type in the setting of previously known CAD; s/p CABG x 2 (2002) with subsequent C (11/2023) on BASA - Admit to PCU. Start Lasix 40 mg IV daily with supplemental potassium and magnesium. Check echocardiogram to evaluate LVEF. Resume losartan and BASA as previous. Recheck CXR in a.m. to evaluate for potential improvement. 2. Acute respiratory insufficiency with Generalized Weakness arising from #1 - Wean supplemental oxygen as tolerated. PT/OT and Case Management to consult and treat on-rounds in AM with help appreciated in advance. 3. Hypomagnesemia of 1.1 mg/dL present on admission complicating #1 & #2 - Give supplemental magnesium sulfate IV and then recheck level in AM to ensure improvement. 4. Recent admission here from October 10, 2024 to October 12, 2024 for LGIB with BRBPR suspected to be due to adverse drug reaction to combination of BASA and Xarelto with subsequent colonoscopy showing nonbleeding external and internal hemorrhoids and diverticulosis in the rectosigmoid colon and EGD revealing no gross lesions in the entire esophagus with a single gastric polyp that was resected and retrieved - Noted with no active signs of bleeding and stable hemoglobin of 10.8 g/dL present on admission. 5. Obesity; with BMI of 32 this admission with NAFLD - Weight loss will be recommended. Check TSH. This complicates her case and may hamper recovery. 6. Essential hypertension; on amlodipine, losartan, metoprolol and prn furosemide for edema - Continue home regimen with patient now switched to scheduled daily furosemide as noted above. 7. Hyperlipidemia; on atorvastatin - Resume statin. 8. History of tobacco abuse (quit 2008); with subsequent asthma/COPD - Stable with no evidence of acute flare at this time. Continue nebulizers prn as before. 9. DM-2; of unknown control on NPH insulin 22 sq. BID + SSI and diabetic neuropathy; on gabapentin - ADA/cardiac diet. FSBS q. AC/HS plus lowest intensity SSI. Check hemoglobin A1c to objectively assess quality of diabetic control. 10. History of nonproliferative diabetic retinopathy - Noted. 11. History of atrial fibrillation; on rivaroxaban s/p DCCV (2014) & radiofrequency ablation (2015) - Noted. Resume rivaroxaban as previous. 12. PVD; with claudication s/p angioplasty (2012) - Noted. 13. CKD; stage III - Stable. Check renal indices daily to ensure continued stability. 14. Chronic anemia - Stable with hemoglobin of 10.8 g/dL present on admission. 15. History of Renal Cell Carcinoma; s/p partial Right nephrectomy (2014) - Noted. 16. History of bladder repair surgery - Noted. 17. RLS; on ropinirole - Maintain current regimen. 18. History of depression; on buspirone, sertraline and trazodone - Well controlled with home medications which will be maintained as before. 19. Listed allergy to Dofetilide (long QT) - Noted. 20. Listed allergy to Haldol (?) - Noted. 21. History of cyclic vomiting syndrome; with listed allergy to Reglan and Benadryl (restless legs) - Noted. We will avoid these agents. 22. History of cholecystectomy (2018) - Noted. 23. History of hysterectomy (1995) - Noted. 24. History of Right femur fracture; s/p ORIF - Noted. 25. OA; with DDD and Lumbar Spinal Stenosis with Radiculopathy; s/p Laminectomy and Muscle Spasms with Chronic Back Pain; on Methocarbamol q. 6 h prn plus Oxycodone q. 4h prn and Chronic Debility; with patient using a walker to mobilize - Noted. Continue current treatment. 26. DVT prophylaxis - Patient already on rivaroxaban for #10 which will be continued. Total time: Approximately (but not less than) 75 minutes. Charges/Coding Visit Charges Inpatient E&M: 75830 Init Hosp L3
--- NOTE | 2024-10-29 01:11 | ECHOD_ITS ---
Reason For Study: CONGESTIVE HEART FAILURE Procedure This was a 2D Doppler, Color Flow transthoracic echocardiogram. The study was technically difficult. Definity deferred due to partial nephrectomy. Exam performed portable in patient room. Left Ventricle Normal LV size. Left ventricular systolic function is normal. The left ventricular ejection fraction is 55 %. No regional wall motion abnormalities noted. Right Ventricle Normal RV size. Normal systolic function. Tricuspid Valve Normal tricuspid valve. Mild to moderate (1-2+) tricuspid valve insufficiency. Pulmonary artery systolic pressure is 50 mmHg. Aortic Valve Trisinus/trileaflet aortic valve. Moderate focal aortic valve calcification. Pulmonic Valve Normal pulmonic valve. Great Vessels Normal aortic root. The pulmonary artery is normal size. Normal inferior vena cava. Pericardium/Pleural No pericardial effusion. MMode/2D Measurements & Calculations LVIDd: 4.0 cm IVSd: 1.4 cm LVOT diam: 2.0 cm LVIDs: 2.1 cm LVPWd: 1.2 cm LVOT area: 3.1 cm2 RVDd: 4.6 cm FS: 48.5 % asc Aorta Diam: 3.3 cm LAV(MOD-bp): 63.5 ml LVAd ap4: 15.9 cm2 LAV(MOD-bp) Indexed: 30.4 ml/m2 LVLd ap4: 6.3 cm LAV(MOD-sp2): 39.8 ml EDV(MOD-sp4): 34.2 ml LAV(MOD-sp4): 82.4 ml EDV(sp4-el): 34.1 ml LVAs ap4: 7.5 cm2 LVLs ap4: 5.2 cm ESV(MOD-sp4): 9.3 ml ESV(sp4-el): 9.3 ml EF(MOD-sp4): 72.8 % EF(sp4-el): 72.9 % SV(MOD-sp4): 24.9 ml SV(MOD-sp2): 26.5 ml LVAd ap2: 16.8 cm2 LVLd ap2: 6.2 cm SI(MOD-sp4): 11.9 ml/m2 SI(MOD-sp2): 12.7 ml/m2 EDV(MOD-sp2): 38.1 ml EDV(sp2-el): 38.4 ml LVAs ap2: 8.6 cm2 LVLs ap2: 5.5 cm ESV(MOD-sp2): 11.6 ml ESV(sp2-el): 11.6 ml EF(MOD-sp2): 69.6 % SV(sp4-el): 24.9 ml Ao sinus diam: 2.[address] Junction: 2.5 cm LA A4 area: 25.8 cm2 LA dimension(2D): 4.9 cm RA A4 area: 23.2 cm2 TAPSE: 1.7 cm Time Measurements MV dec time: 0.20 sec Doppler Measurements & Calculations MV E max tomer: 144.6 cm/sec Lat Peak E' Tomer: 8.2 cm/sec Med Peak E' Tomer: 5.3 cm/sec E/E' lat: 17.7 E/E' med: 27.2 MV V2 max: 162.6 cm/sec Ao V2 max: 199.1 cm/sec LV V1 max: 106.3 cm/sec MV max P.6 mmHg Ao max P.9 mmHg LV V1 max P.5 mmHg MV V2 mean: 93.8 cm/sec Ao V2 mean: 142.2 cm/sec LV V1 mean P.1 mmHg MV mean P.2 mmHg Ao mean P.9 mmHg LV V1 mean: 85.8 cm/sec MV V2 VTI: 30.0 cm Ao V2 VTI: 37.8 cm LV V1 VTI: 22.5 cm AV (velocity ratio): 0.60 MVA(VTI): 2.3 cm2 LO(I,D): 1.9 cm2 LO(V,D): 1.7 cm2 SV(LVOT): 70.5 ml PA V2 max: 112.9 cm/sec TR max tomer: 338.6 cm/sec TR max P.9 mmHg ECHO/Echo Complete Interpretation Summary Normal LV size. Left ventricular systolic function is normal. The left ventricular ejection fraction is 55 %. Moderate focal aortic valve calcification. Pulmonary artery systolic pressure is 50 mmHg. Ordering Physician: Sudarshan Cedillo Performed By: Rosalba Lni RDCS
[2024-10-29 02:12] LABS: Troponin-I HS 11 pg/mL (3.0-54.0)
[2024-10-29] MEDS: Insulin Lispro 100 UNIT/ML INSULN.PEN SC ×5 (02:58→22:44)
[2024-10-29 03:19] LABS: Bedside Glucose 236 mg/dL (74-106)
[2024-10-29] MEDS: Pantoprazole Sodium 40 MG Tablet PO ×2 (05:10→22:44)
[2024-10-29] MEDS: busPIRone 5 MG Tablet 10 MG PO ×3 (05:10→22:44)
[2024-10-29] MEDS: Gabapentin 300 MG Capsule PO ×3 (05:10→22:44)
[2024-10-29] MEDS: oxyCODONE 5 MG Tablet PO (06:21)
[2024-10-29] MEDS: Pramipexole Di-HCl 0.5 MG Tablet 1.5 MG PO ×4 (06:25→22:44)
[2024-10-29 06:27] LABS: Absolute Lymphocyte Count 1.47 X10^3/uL (0.83-4.51); Basophil# 0.04 X10^3/uL; Basophil% 0.6 % (0-1); Eosinophil# 0.13 X10^3/uL; Eosinophils% 1.8 % (0-5); Hemoglobin 9.7 g/dL (12.0-15.0); Lymphocyte # 1.47 X10^3/ul (0.83-4.51); Lymphocyte % 20.5 % (19-41); Mean Corp Hgb Conc 31.3 g/dL (32-36); Mean Corpuscular Hgb 28.2 pg (27.0-32.0); Mean Corpuscular Volume 90.1 fL (81-99); Mean Platelet Vol. 10.3 fl (6.2-12.0); NRBC Flagged by Analyzer 0 % (0-5); Neutrophil % 69.7 % (47-70); Platelet Count 183 K/mm3 (150-450); RBC Distribution Width SD 46.2 fl (35.1-43.9); Red Blood Count 3.44 M/mm3 (4.2-5.4); White Blood Count 7.2 K/mm3 (4.4-11.0)
[2024-10-29 07:00] LABS: BNP,B-Type NATRIURETIC PEPTIDE 514.2 pg/mL (0-100)
[2024-10-29 07:08] LABS: ALB/GLOB Ratio 1.1 RATIO (0.9-2.4); AST(SGOT) 34 U/L (15-37); Alanine Aminotransfer ALT/SGPT 110 U/L (13-56); Albumin, Serum 3.2 g/dL (3.2-5.0); Alkaline Phosphatase 115 U/L (45-117); Anion Gap 5 (5-15); BUN 27 mg/dL (7-18); BUN/Creat Ratio 28.6 RATIO (10-20); Calcium,Total 8.9 mg/dL (8.5-10.1); Chloride 110 mmol/L (98-107); Creatinine, Serum 0.94 mg/dL (0.55-1.02); EST Glomerular Filtration Rate 62 mL/min (>60); Est Glom Filt Rate - Afr Amer 75 mL/min (>60); Estimated Creatinine Clearance 64.14 ml/min; Globulin 2.9 g/dL (2.2-4.2); Glucose 242 mg/dL (74-106); Magnesium 1.1 mg/dL (1.6-2.6); Phosphorus 3.6 mg/dL (2.5-4.9); Potassium 3.9 mmol/L (3.5-5.1); Protein, Total 6.1 g/dL (6.4-8.2); Sodium Level 138 mmol/L (136-145)
[2024-10-29] MEDS: Ipratropium/Albuterol Sulfate 3 ML AMPUL.NEB INHALATION ×3 (07:08→19:31)
[2024-10-29 08:00] LABS: Bedside Glucose 199 mg/dL (74-106)
[2024-10-29] MEDS: Magnesium Sulfate 2 GM in Dextrose 5%-Water (100mL Bag) 100 ML IV (09:41)
--- NOTE | 2024-10-29 09:45 | PCM.PN.HOSP ---
Reason for Visit Reason for Visit: Diagnoses Obesity, class 1 (10/29/24) Essential (primary) hypertension (10/29/24) Atherosclerotic heart disease of [place] coronary artery without angina pectoris (10/29/24) Paroxysmal atrial fibrillation (10/29/24) Unspecified atrial fibrillation (10/29/24) Heart failure, unspecified (10/29/24) Other abnormalities of breathing (10/29/24) Weakness (10/29/24) Objective Data Objective Data Vital Signs: Vital Signs Temp Pulse Resp BP Pulse Ox O2 Del Method 97.9 F 68 18 93/38 L 94 Room Air 10/29/24 09:30 10/29/24 09:30 10/29/24 09:30 10/29/24 09:30 10/29/24 09:30 10/29/24 09:30 Oxygen Delivery Method Room Air Weight: 202 lb 9.677 oz Body Mass Index (BMI) 30.7 Intake & Output: Intake and Output for Last 24 Hours 10/27/24 10/28/24 10/29/24 23:59 23:59 23:59 Intake Total 500 / 500 Balance 500 / 500 Lab / Micro Data 10/29/24 05:34 10/29/24 05:34 Labs: Laboratory Results - last 24 hr 10/28/24 21:51: WBC 8.6, RBC 3.91 L, Hgb 10.8 L, Hct 36.6 L, MCV 93.6, MCH 27.6, MCHC 29.5 L, RDW Std Deviation 47.6 H, RDW Coeff of Ray 14.1, Plt Count 191, MPV 10.1, Immature Gran % (Auto) 0.600, Neut % (Auto) 69.7, Lymph % (Auto) 20.6, Moffat % (Auto) 7.1, Eos % (Auto) 1.3, Baso % (Auto) 0.7, Absolute Neuts (auto) 6.0, Absolute Lymphs (auto) 1.76, Nucleated RBC % 0, D-Dimer Quant (PE/DVT) 0.65 H*, Sodium 138, Potassium 4.3, Chloride 110 H, Carbon Dioxide 20.0 L, Anion Gap 8, BUN 37 H, Creatinine 1.17 H, Estim Creat Clear Calc 52.49, Est GFR (MDRD) Af Amer 58 L, Est GFR (MDRD) Non-Af 48 L, BUN/Creatinine Ratio 31.6 H, Glucose 335 H, Calcium 9.2, Troponin I High Sens 16, B-Natriuretic Peptide 437.6 H 10/29/24 01:37: Troponin I High Sens 11, TSH 2.980 10/29/24 02:45: POC Glucose 236 H 10/29/24 05:34: WBC 7.2, RBC 3.44 L, Hgb 9.7 L, Hct 31.0 L, MCV 90.1, MCH 28.2, MCHC 31.3 L D, RDW Std Deviation 46.2 H, RDW Coeff of Ray 14.0, Plt Count 183, MPV 10.3, Immature Gran % (Auto) 0.400, Neut % (Auto) 69.7, Lymph % (Auto) 20.5, [place]offat % (Auto) 7.0, Eos % (Auto) 1.8, Baso % (Auto) 0.6, Absolute Neuts (auto) 5.0, Absolute Lymphs (auto) 1.47, Nucleated RBC % 0, Sodium 138, Potassium 3.9, Chloride 110 H, Carbon Dioxide 23.0, Anion Gap 5, BUN 27 H, Creatinine 0.94, Estim Creat Clear Calc 64.14, Est GFR (MDRD) Af Amer 75, Est GFR (MDRD) Non-Af 62, BUN/Creatinine Ratio 28.6 H, Glucose 242 H, Calcium 8.9, Phosphorus 3.6, Magnesium 1.1 L, Total Bilirubin 0.50, AST 34, ALT 110 H, Alkaline Phosphatase 115, B-Natriuretic Peptide 514.2 H, Total Protein 6.1 L, Albumin 3.2, Globulin 2.9, Albumin/Globulin Ratio 1.1 10/29/24 07:42: POC Glucose 199 H Radiography Diagnostic Testing: Radiology Impression Chest X-Ray 10/28/24 21:58 IMPRESSION: Patchy bilateral infiltrates. Most likely inflammatory or viral pneumonitis. Electronically Signed: Heather Olsen MD at 23:01 EST , Chest CTA 10/28/24 23:08 IMPRESSION: 1. No evidence of pulmonary emboli. 2. Findings suggest mild interstitial edema. Minimal bilateral pleural effusions. Background mild interstitial disease. Electronically Signed: Heather Olsen MD at 0:15 EST , Physical Exam Narrative Seen and examined. Patient is admitted with shortness of breath worsening for 2 days. Denies cough or other URI symptoms. No fever. No dysuria Physical exam General: Alert, Oriented x3, Cooperative HEENT: Atraumatic, PERRLA, EOMI, Normocephalic Oral: No Gingival or Mucosal Lesions/ Ulcerations Neck: Supple, No JVD, Negative Carotid Bruits Chest wall/Lungs: Air entry diminished in bilateral lung bases. Bilateral fine crepitations at lung bases. Cardiovascular: Regular rate, Regular Rhythm, Normal S1, Normal S2, systolic murmur at right second ICS Abdomen: Bowel Sounds Present, Soft, Non Tender, Non-Distended : No dysuria. No renal angle tenderness. No suprapubic tenderness. Extremities: Subtle bilateral pitting edema, Capillary Refill Less than 3 Seconds Skin: No rashes, No breakdown Musculoskeletal: No Tenderness to Palpation of Joints or Extremities Neurological: Cranial nerves II-XII grossly intact, DTR 2+/4. No acute focal neurological deficit. Psych/Mental Status: Normal Affect, Appropriate. Assessment & Plan Assessment/Plan (1) CHF exacerbation: QUALIFIERS: Heart failure type: unspecified Qualified Code(s): I50.9 - Heart failure, unspecified (2) Respiratory insufficiency: (3) Obesity (BMI 30.0-34.9): (4) Essential hypertension: (5) Generalized weakness: (6) Paroxysmal atrial fibrillation: (7) Atherosclerosis of coronary artery of [place] heart without angina pectoris: QUALIFIERS: Coronary Disease-Associated Artery/Lesion type: [place] artery Qualified Code(s): I25.10 - Atherosclerotic heart disease of [place] coronary artery without angina pectoris PLAN: Plan 74-year-old female admitted with 2 days of progressive worsening of exertional shortness of breath, denies dyspnea at rest. She can barely walk across the room without stopping to catch her breath. Pulse ox was in 60s on room air. In ED 1999 1900. History of A-fib on Xarelto. Denies chest pain, fever, chill, URI symptoms, nausea, vomiting or diarrhea 1. Acute on chronic heart failure of uncertain type and classification, CAD status post double vessel CABG and PAD with claudication s/p angioplasty in 2013: Patient is being admitted in PCU with elevated BNP 0.37. Chest x-ray and CTA chest individually reviewed and were negative for PE but shows pulmonary vascular congestion consistent with acute on chronic heart failure. Started on Lasix 40 IV twice daily but patient has low blood pressure therefore decreased to 20 mg in the afternoon when BP increased to 110/51. Patient on baby aspirin, atorvastatin, Xarelto, metoprolol succinate, losartan and furosemide with holding parameters. Patient was evaluated by hspt tutor. Plan for echo tomorrow AM. Heart failure core measures including intake and output, fluid restriction less than 1500 mL, daily weight monitoring, kidney and electrolytes monitoring. 2. Severe hypomagnesemia of 1.1 mg/dL present on admission c - Give supplemental magnesium sulfate IV and then recheck level in AM to ensure improvement. Repeat magnesium ordered in the afternoon 3. Recent admission here from October 10, 2024 to October 12, 2024 for LGIB with BRBPR suspected to be due to adverse drug reaction to combination of BASA and Xarelto with subsequent colonoscopy showing nonbleeding external and internal hemorrhoids and diverticulosis in the rectosigmoid colon and EGD revealing no gross lesions in the entire esophagus with a single gastric polyp that was resected and retrieved - Noted with no active signs of bleeding and stable hemoglobin of 10.8 g/dL present on admission. 4. Obesity; with BMI of 32 this admission with NAFLD - Weight loss will be recommended. Check TSH. This complicates her case and may hamper recovery. 5. Essential hypertension; on amlodipine, losartan, metoprolol and prn furosemide for edema - Continue home regimen with patient now switched to scheduled daily furosemide as noted above. 6. Hyperlipidemia; on atorvastatin - Resume statin. 7. History of tobacco abuse (quit 2008); with subsequent asthma/COPD - Stable with no evidence of acute flare at this time. Continue nebulizers prn as before. 8. DM-2; of unknown control on NPH insulin 12 units sq. BID + SSI and diabetic neuropathy; on gabapentin and diabetic nonproliferative retinopathy- ADA/cardiac diet. 10/29: Glucose is elevated 300 and Accu-Chek and fasting 242 in BMP. NPH is likely increased to 17 units subcu twice daily. Accu-Chek before meals and at bedtime with Humalog sliding scale coverage and hypoglycemia protocol. 9. Paroxysmal atrial fibrillation; on rivaroxaban s/p DCCV (2015) & radiofrequency ablation (2016): Twelve-lead EKG shows normal sinus rhythm at 63 bpm with RSR. Telemetry normal sinus rhythm. 10. CKD; stage IIIa -creatinine 0.94. 11. Chronic anemia - Stable with hemoglobin of 10.8 g/dL present on admission. 09/29: Hemoglobin slightly decreased to 9.7. Platelet count normal. 12. History of Renal Cell Carcinoma; s/p partial Right nephrectomy (2014) - Noted. 13. Chronic degenerative arthritis with lumbar spinal stenosis with radiculopathy, RLS on ropinirole: PT and OT ordered. On pain control with oxycodone and methocarbamol 14. RLS; on ropinirole - Maintain current regimen. 15. History of depression; on buspirone, sertraline and trazodone - Well controlled with home medications which will be maintained as before. DVT prophylaxis - Patient already on rivaroxaban for #10 which will be continued. Charges/Coding Visit Charges Inpatient E&M: 03674 Subs Hosp L2
[2024-10-29] MEDS: Insulin Human 75/25 Kwickpen 12 UNIT SC (09:47)
[2024-10-29] MEDS: Sertraline 100 MG Tablet PO (09:51)
[2024-10-29] MEDS: Magnesium Chloride 64 MG Delay Rel.Tablet 128 MG PO ×2 (09:51→23:36)
[2024-10-29] MEDS: Potassium Chloride Oral Tablet 20 MEQ PO ×2 (09:51→16:33)
--- NOTE | 2024-10-29 11:56 | PCM.CONS.C ---
Assessment & Plan Assessment/Plan (1) Paroxysmal atrial fibrillation: PLAN: Patient remains in normal sinus rhythm during her hospitalization and on her EKG. She is not aware when she goes into atrial fibrillation and is managed with metoprolol and Xarelto. She denies any recent nuisance bleeding. She was hospitalized back in September 2024 for rectal bleeding which resolved spontaneously. Her hemoglobin was 10 on admission and 9.7 on a repeat. She denies any obvious nuisance bleeding. The patient is to be continued to be monitored and continued on her current medical regimen. (2) Essential hypertension: PLAN: Patient's blood pressure is slightly elevated in the hospital today. She should be continued on her current home medications of amlodipine losartan and metoprolol. If the patient's blood pressure continues to be an issue consideration may be given of switching her to Coreg 25 mg twice daily as an alternative to the metoprolol. Pending the outcome of the pending echocardiogram other alterations in her medical regiment may be suggested. (3) CHF exacerbation: QUALIFIERS: Heart failure type: unspecified Qualified Code(s): I50.9 - Heart failure, unspecified PLAN: Patient's last LV evaluation showed an EF of 65% on her left heart catheterization November 2023. A 2D echocardiogram is pending at this time and should be completed in the next 24 hours. I recommend continuing the patient's current medical therapy. Her BNP is 514 but she is obese which can artificially depressed the accuracy. The patient is on Lasix and her home environment appears to be in a as needed basis. I recommend continuing daily Lasix and reevaluating her medical regimen once the results of the echocardiogram are known. Dr. Kwon is the patient's primary lactation coordinator and he will be assuming her care starting tomorrow morning when we change services. PLAN: Plan 1. Obtain 2D echocardiogram 2. Further recommendations for medical regimen alterations pending the outcomes of the echocardiogram. 3. Continue current medical therapy until results of the echocardiogram are available. HPI Consult Data Date of Consult: 10/29/24 HPI Narrative Reason for Consultation: Newly diagnosed congestive heart failure. HPI Narrative: TACOS ESPINOZA, is a 74 F who presents with a 2-day history of increasing dyspnea on exertion and lower extremity edema. Patient carries a history of known coronary disease status post remote bypass graft surgery in 2002. Her most recent diagnostic catheterization was November 2023. She had a borderline abnormal stress test that led to that catheterization which showed a left-ventricular ejection fraction of 65% her LAD was totally obstructed proximally the right coronary was subtotally obstructed proximally. The LAD fills via a widely patent FAIR graft in the right coronary feel via a widely patent saphenous vein graft. The patient is not sure if she has ever been diagnosed with heart failure in the past or not. The patient did note that with this increasing dyspnea on exertion her O2 sat dropped to 66% in her home environment and with bilateral lower extremity edema she presented to the emergency department for further evaluation. Patient's admitting BNP was 430 8 repeat was 514. The patient is obese. She is not in atrial fibrillation at this point in time. Cardiac isoenzymes troponin high-sensitivity were 16 and 11. In September 2024 the patient been admitted for rectal bleeding her Xarelto was held and it was felt this was related to internal and external hemorrhoids that resolved spontaneously. She denies any nuisance bleeding at this point in time and denies any recurrence of the rectal bleeding. The patient has a history of paroxysmal atrial fibrillation. She is not aware when she is in atrial fibrillation and this is the reason for the Xarelto. Currently the patient is in normal sinus rhythm at 63 bpm with an RSR prime on her resting EKG. Telemetry shows normal sinus rhythm with PACs and otherwise is unremarkable. The patient has a history of hypertension and is treated with amlodipine 10 mg daily, losartan 100 mg daily, and metoprolol 100 mg daily for atrial fibrillation. The patient was admitted on 10/28/2020 4 in the evening. A 2D echocardiogram is pending at this time. Historically the patient's LV function has been normal with no definitive diastolic dysfunction documented. The patient does note that since admission her urine output is increased and her swelling has resolved in her lower extremities. [facility] Medical History (Updated 10/29/24 @ 07:[address] Sudarshan Cedillo, ) Paroxysmal atrial fibrillation NAFLD (nonalcoholic fatty liver disease) Overweight (BMI 25.0-29.9) Anemia Hyperlipidemia Type 2 diabetes mellitus with hyperglycemia Lumbar radiculopathy Chronic back pain History of stress test Wears glasses Wears dentures Cancer Depression Insulin dependent diabetes mellitus Walker as ambulation aid Arthritis Fatty liver High cholesterol Restless legs History of hiatal hernia Shortness of breath on exertion Former smoker Asthma COPD (chronic obstructive pulmonary disease) Leg cramps History of echocardiogram History of stress test Cardiology follow-up encounter History of atrial fibrillation Fracture of right femur Acute dehydration Chronic atrial fibrillation with rapid ventricular response Cyclic vomiting syndrome Hypomagnesemia NPDR (nonproliferative diabetic retinopathy) Chronic vomiting Peripheral vascular occlusive disease Anxiety Renal cell carcinoma Atherosclerosis of coronary artery of [place] heart without angina pectoris Essential (primary) hypertension Gastro-esophageal reflux disease without esophagitis Peripheral neuropathy Chronic kidney disease, stage 3 Mild chronic obstructive pulmonary disease Type II diabetes mellitus Home Medications ?Medication ?Instructions ?Recorded ?Last Taken ?Type atorvastatin 80 mg tablet 80 mg PO QHS cholesterol 07/31/17 07/17/24 History insulin human U-100 NPH-regulr 22 unit SQ BID diabetes 07/31/17 07/17/24 History 70-30 mix 100 unit/mL subcutaneous susp ondansetron HCl 8 mg tablet 8 mg PO Q8H PRN PRN 01/06/21 Unknown Rx Nausea/Vomiting #15 tabs rivaroxaban 20 mg tablet (Xarelto) 20 mg PO QHS a fib 07/07/21 07/15/24 History sertraline 100 mg tablet 100 mg PO DAILY depression 07/07/21 07/17/24 History buspirone 10 mg tablet 10 mg PO TID cyclic vommitting 09/28/23 07/17/24 History gabapentin 300 mg capsule 300 mg PO TID cyclic vomitting 09/28/23 07/17/24 History pantoprazole 40 mg tablet,delayed 40 mg PO BID cyclic vomiting 09/28/23 07/17/24 History release metoprolol succinate 100 mg 100 mg PO DAILY irreg. heart beat 03/24/24 07/17/24 History tablet,extended release 24 hr ropinirole 5 mg tablet 5 mg PO TID restless legs 03/24/24 07/17/24 History amlodipine 10 mg tablet 10 mg PO 1700 blood pressure 10/10/24 Unknown History aspirin 81 mg tablet,delayed 81 mg PO QHS heart 10/10/24 Unknown History release (Adult Aspirin Regimen) furosemide 20 mg tablet (Lasix) 20 mg PO DAILY PRN edema 10/10/24 Unknown History losartan 100 mg tablet 100 mg PO 1200 blood pressure 10/10/24 Unknown History promethazine 25 mg tablet 25 mg PO Q8H PRN PRN nausea and 10/10/24 Unknown History vomiting umeclidinium 62.5 mcg-vilanterol 1 inh inhalation DAILY wheeze 10/10/24 Unknown History 25 mcg/actuation powdr for inhalation (Anoro Ellipta) Allergy/AdvReac Type Severity Reaction Status Date / Time diphenhydramine HCl (From AdvReac restless Verified 10/28/24 20:23 Benadryl) legs dofetilide AdvReac LONG QT Verified 10/28/24 20:23 haloperidol (From Haldol) AdvReac Other Verified 10/28/24 20:23 metoclopramide (From Reglan) AdvReac restless Verified 10/28/24 20:23 legs Family History Mother Cancer Stomach Father Colon cancer Heart disease Sister Colon cancer Surgical History History of bladder repair surgery History of cardiac catheterization (~11/2023) History of angioplasty of peripheral vessel (07/2013) History of cholecystectomy (08/2019) History of radiofrequency ablation procedure for cardiac arrhythmia (03/19/16) History of cardioversion (2014) History of open reduction and internal fixation (ORIF) procedure H/O laminectomy History of colonoscopy H/O coronary artery bypass surgery (01/29/03) History of hysterectomy (1995) History of esophagogastroduodenoscopy (EGD) (01/2018) History of partial nephrectomy Social History household members: none Smoking Status: Former smoker pack-years: 40 how long ago did patient quit smokin alcohol intake: never substance use type: does not use caffeine: Yes (Occasionally) Type: carbonated beverages ROS Constitutional Constitutional: Reports as per HPI Eyes Eyes: Reports systems reviewed and no addt'l complaints, except as documented ENT HEENT: Reports systems reviewed and no addt'l complaints, except as documented Cardiovascular Cardiovascular: Reports as per HPI Respiratory/Chest Respiratory/Chest: Reports as per HPI Gastrointestinal Gastrointestinal: Reports as per HPI Genitourinary Genitourinary: Reports systems reviewed and no addt'l complaints, except as documented Musculoskeletal Musculoskeletal: Reports systems reviewed and no addt'l complaints, except as documented Integumentary Integumentary: Reports systems reviewed and no addt'l complaints, except as documented Neurologic Neurologic: Reports systems reviewed and no addt'l complaints, except as documented Psychiatric Psychiatric: Reports systems reviewed and no addt'l complaints, except as documented Endocrine Endocrinology: Reports systems reviewed and no addt'l complaints, except as documented Hematologic/Lymphatic Hematologic/Lymphatic: Reports as per HPI Allergic/Immunologic Allergic/Immunologic: Reports systems reviewed and no addt'l complaints, except as documented Physical Exam Narrative Patient is resting comfortably seated in the chair next to the bedside. Const alert and oriented x3 HEENT normocephalic Eyes EOMs intact bilaterally Neck Neck Narrative: Noted JVD at the clavicle at 90 degrees seated in the chair. Carotids: Negative for bruit Chest inspection of chest normal Resp normal respiratory effort Auscultation: crackles bilateral base Cardio Rate: regular rate Rhythm: regular rhythm Heart Sounds: S1 normal, S2 normal and murmur systolic I/ soft left sternal border and right sternal border; Negative for click or gallop GI normal to inspection, nondistended, normoactive bowel sounds and soft to palpation Extremity General Extremity: edema bilateral lower extremity Details: trace Skin no rashes or lesions noted Neuro Neuro Narrative: Alert and oriented x 3 Psych mental status grossly normal Risk Stratification Risk Stratification Applicable: Yes Age >/= 65: Yes >/= 3 CAD Risk Factors (HTN, HLD, DM, family hx of CAD, or current smoker): Yes Aspirin Use in the Past 7 Days: Yes Severe Angina (>/= episodes in 24 hours): No EKG ST Changes >/= 0.5mm: No Positive Cardiac Marker: No LISETTE Risk Stratification Score: 3 LISETTE % Risk: 13% Risk Charges/Coding Visit Charges Inpatient E&M: 91146 Init Hosp L2 Objective Data Vital Signs: Vital Signs Temp Pulse Resp BP Pulse Ox O2 Del Method 97.9 F 68 18 93/38 L 94 Room Air 10/29/24 09:30 10/29/24 09:59 10/29/24 09:30 10/29/24 09:59 10/29/24 09:30 10/29/24 09:30 Oxygen Delivery Method Room Air Weight: 202 lb 9.677 oz Body Mass Index (BMI) 30.7 Intake & Output: Intake and Output for Last 24 Hours 10/27/24 10/28/24 10/29/24 23:59 23:59 23:59 Intake Total 740 / 740 Output Total 350 / 350 Balance 390 / 390 Lab / Micro Data Attestation: I reviewed the patient's lab results. 10/29/24 05:34 10/29/24 05:34 Labs: Laboratory Results - last 24 hr 10/28/24 21:51: WBC 8.6, RBC 3.91 L, Hgb 10.8 L, Hct 36.6 L, MCV 93.6, MCH 27.6, MCHC 29.5 L, RDW Std Deviation 47.6 H, RDW Coeff of Ray 14.1, Plt Count 191, MPV 10.1, Immature Gran % (Auto) 0.600, Neut % (Auto) 69.7, Lymph % (Auto) 20.6, [place] % (Auto) 7.1, Eos % (Auto) 1.3, Baso % (Auto) 0.7, Absolute Neuts (auto) 6.0, Absolute Lymphs (auto) 1.76, Nucleated RBC % 0, D-Dimer Quant (PE/DVT) 0.65 H*, Sodium 138, Potassium 4.3, Chloride 110 H, Carbon Dioxide 20.0 L, Anion Gap 8, BUN 37 H, Creatinine 1.17 H, Estim Creat Clear Calc 52.49, Est GFR (MDRD) Af Amer 58 L, Est GFR (MDRD) Non-Af 48 L, BUN/Creatinine Ratio 31.6 H, Glucose 335 H, Calcium 9.2, Troponin I High Sens 16, B-Natriuretic Peptide 437.6 H 10/29/24 01:37: Troponin I High Sens 11, TSH 2.980 10/29/24 02:45: POC Glucose 236 H 10/29/24 05:34: WBC 7.2, RBC 3.44 L, Hgb 9.7 L, Hct 31.0 L, MCV 90.1, MCH 28.2, MCHC 31.3 L D, RDW Std Deviation 46.2 H, RDW Coeff of Ray 14.0, Plt Count 183, MPV 10.3, Immature Gran % (Auto) 0.400, Neut % (Auto) 69.7, Lymph % (Auto) 20.5, [place] % (Auto) 7.0, Eos % (Auto) 1.8, Baso % (Auto) 0.6, Absolute Neuts (auto) 5.0, Absolute Lymphs (auto) 1.47, Nucleated RBC % 0, Sodium 138, Potassium 3.9, Chloride 110 H, Carbon Dioxide 23.0, Anion Gap 5, BUN 27 H, Creatinine 0.94, Estim Creat Clear Calc 64.14, Est GFR (MDRD) Af Amer 75, Est GFR (MDRD) Non-Af 62, BUN/Creatinine Ratio 28.6 H, Glucose 242 H, Hemoglobin A1c 8.0 H, Calcium 8.9, Phosphorus 3.6, Magnesium 1.1 L, Total Bilirubin 0.50, AST 34, ALT 110 H, Alkaline Phosphatase 115, B-Natriuretic Peptide 514.2 H, Total Protein 6.1 L, Albumin 3.2, Globulin 2.9, Albumin/Globulin Ratio 1.1 10/29/24 07:42: POC Glucose 199 H Micro: Microbiology 10/29/24 07:47 Mucosa - Nasopharyngeal Respiratory Panel (PCR) - Final Rhythm Strip Rhythm Strip: Sinus Rhythm Rate: 65 Ectopy: PAC(s) Cardiology Labs/Tests 10/28/24 21:51: WBC 8.6, RBC 3.91 L, Hgb 10.8 L, Hct 36.6 L, MCV 93.6, MCH 27.6, MCHC 29.5 L, Plt Count 191, MPV 10.1, Immature Gran % (Auto) 0.600, Neut % (Auto) 69.7, Lymph % (Auto) 20.6, [place] % (Auto) 7.1, Eos % (Auto) 1.3, Baso % (Auto) 0.7, Absolute Neuts (auto) 6.0, Nucleated RBC % 0, D-Dimer Quant (PE/DVT) 0.65 H*, Sodium 138, Potassium 4.3, Chloride 110 H, Carbon Dioxide 20.0 L, Anion Gap 8, BUN 37 H, Creatinine 1.17 H, Est GFR (MDRD) Af Amer 58 L, Est GFR (MDRD) Non-Af 48 L, BUN/Creatinine Ratio 31.6 H, Glucose 335 H, Calcium 9.2, B-Natriuretic Peptide 437.6 H 10/29/24 05:34: WBC 7.2, RBC 3.44 L, Hgb 9.7 L, Hct 31.0 L, MCV 90.1, MCH 28.2, MCHC 31.3 L D, Plt Count 183, MPV 10.3, Immature Gran % (Auto) 0.400, Neut % (Auto) 69.7, Lymph % (Auto) 20.5, [place] % (Auto) 7.0, Eos % (Auto) 1.8, Baso % (Auto) 0.6, Absolute Neuts (auto) 5.0, Nucleated RBC % 0, Sodium 138, Potassium 3.9, Chloride 110 H, Carbon Dioxide 23.0, Anion Gap 5, BUN 27 H, Creatinine 0.94, Est GFR (MDRD) Af Amer 75, Est GFR (MDRD) Non-Af 62, BUN/Creatinine Ratio 28.6 H, Glucose 242 H, Hemoglobin A1c 8.0 H, Calcium 8.9, Phosphorus 3.6, Magnesium 1.1 L, Total Bilirubin 0.50, B-Natriuretic Peptide 514.2 H Rhythm: EKG: ECHO: Stress Test: Cardiac Cath: PCI: CT Surgery: Holter monitor: EPS: PPM: CXR: Chest CT Scan: Radiography Diagnostic Testing: Radiology Impression Chest X-Ray 10/28/24 21:58 IMPRESSION: Patchy bilateral infiltrates. Most likely inflammatory or viral pneumonitis. Electronically Signed: Heather Olsen MD at 23:01 EST , Chest CTA 10/28/24 23:08 IMPRESSION: 1. No evidence of pulmonary emboli. 2. Findings suggest mild interstitial edema. Minimal bilateral pleural effusions. Background mild interstitial disease. Electronically Signed: Heather Olsen MD at 0:15 EST ,
[2024-10-29 11:57] LABS: Bedside Glucose 300 mg/dL (74-106)
[2024-10-29] MEDS: 0.9% Saline Lock 10 ML Syringe IV (12:12)
[2024-10-29] MEDS: Furosemide 20 MG/2 ML VIAL IV (12:12)
[2024-10-29] MEDS: Rivaroxaban 20 MG Tablet PO (16:33)
[2024-10-29] MEDS: amLODIPine 10 MG Tablet PO (16:33)
[2024-10-29 17:10] LABS: Bedside Glucose 161 mg/dL (74-106)
[2024-10-29] MEDS: Insulin Human 75/25 Kwickpen 17 UNIT SC (17:37)
[2024-10-29] MEDS: Aspirin E.C. 81 MG Tablet PO (22:44)
[2024-10-29] MEDS: Atorvastatin Calcium 80 MG Tablet PO (22:44)
[2024-10-29 23:13] LABS: Bedside Glucose 214 mg/dL (74-106)
[2024-10-30] VITALS (7 sets, daily range): BP systolic 98–116; BP diastolic 45–55; PULSE 73–88; RESP 16–18; TEMP 36.7–36.9; O2SAT 90–99; BMI 30.6
[2024-10-30 04:27] LABS: Absolute Lymphocyte Count 1.41 X10^3/uL (0.83-4.51); Absolute Neutrophil Count 4.9 X10^3/uL (2.0-7.7); Basophil# 0.04 X10^3/uL; Basophil% 0.6 % (0-1); Eosinophil# 0.14 X10^3/uL; Hematocrit 32.1 % (37-47); Hemoglobin 9.9 g/dL (12.0-15.0); Lymphocyte # 1.41 X10^3/ul (0.83-4.51); Mean Corp Hgb Conc 30.8 g/dL (32-36); Mean Corpuscular Volume 90.7 fL (81-99); Mean Platelet Vol. 9.4 fl (6.2-12.0); Monocyte% 7.1 % (0-10); NRBC Flagged by Analyzer 0 % (0-5); Neutrophil # 4.94 X10^3/uL (2.7-7.7); Neutrophil % 69.9 % (47-70); Platelet Count 180 K/mm3 (150-450); RBC Distribution Width SD 46.8 fl (35.1-43.9); Red Blood Count 3.54 M/mm3 (4.2-5.4); White Blood Count 7.1 K/mm3 (4.4-11.0)
[2024-10-30 04:46] LABS: Anion Gap 4 (5-15); BUN 29 mg/dL (7-18); BUN/Creat Ratio 26.1 RATIO (10-20); Chloride 112 mmol/L (98-107); Creatinine, Serum 1.11 mg/dL (0.55-1.02); EST Glomerular Filtration Rate 51 mL/min (>60); Est Glom Filt Rate - Afr Amer 62 mL/min (>60); Estimated Creatinine Clearance 54.31 ml/min; Glucose 145 mg/dL (74-106); Potassium 4.5 mmol/L (3.5-5.1); Sodium Level 141 mmol/L (136-145)
[2024-10-30] MEDS: Gabapentin 300 MG Capsule PO ×2 (05:51→14:39)
[2024-10-30] MEDS: busPIRone 5 MG Tablet 10 MG PO ×2 (05:51→14:39)
[2024-10-30] MEDS: Pantoprazole Sodium 40 MG Tablet PO (05:51)
[2024-10-30] MEDS: Ipratropium/Albuterol Sulfate 3 ML AMPUL.NEB INHALATION ×2 (07:09→13:15)
[2024-10-30] MEDS: Insulin Human 75/25 Kwickpen 17 UNIT SC ×2 (08:38→17:19)
[2024-10-30 08:58] LABS: Bedside Glucose 157 mg/dL (74-106)
[2024-10-30] MEDS: Sertraline 100 MG Tablet PO (09:46)
[2024-10-30] MEDS: Magnesium Chloride 64 MG Delay Rel.Tablet 128 MG PO (09:47)
[2024-10-30] MEDS: Potassium Chloride Oral Tablet 20 MEQ PO (10:07)
[2024-10-30] MEDS: 0.9% Saline Lock 10 ML Syringe IV (10:39)
[2024-10-30] MEDS: Furosemide 40 MG/4 ML Vial IV (10:39)
[2024-10-30] MEDS: Insulin Lispro 100 UNIT/ML INSULN.PEN SC (12:08)
[2024-10-30 12:32] LABS: Bedside Glucose 182 mg/dL (74-106)
[2024-10-30] MEDS: Pramipexole Di-HCl 0.5 MG Tablet 1.5 MG PO ×2 (12:36→17:22)
--- NOTE | 2024-10-30 14:49 | DCINST_ITS ---
Discharge Instructions Diet Discharge Diet: Low fat / Low cholesterol DC O2, CPAP, BIPAP needs RN Home O2 Qualification: Home O2 Qualification: Is the patient on home oxygen No 10/30/24 13:55 Home O2 Qualification: AT REST 1- Pulse Ox at rest 99 10/30/24 13:55 Home O2 Qualification: WITH AMBULATION 1- Pulse Ox with ambulation 90 10/30/24 13:55 1- Oxygen Flow Rate with 0 10/30/24 13:55 ambulation Additional Home O2 Discharge instructions: No Dressing / Incision Discharge Activity: Return to Normal Activity Dressing / Incision Call your doctor if you observe: Fever of 101 or Higher, Shortness of breath, Dizziness, Fainting spells, Swelling in the ankles, Chest pain and Increased palpitations (irregular heartbeat) Follow Up Care Test Results: Test results from this visit will be discussed in further detail at your follow- up appointment, if applicable. Discharge Plan Admission Admit Date/Time: 10/29/24 01:01 Attending Provider: Nitish Vargas Primary Care Provider: Tae Banegas Consulting Providers: Cesia Wilson; Sofi Sarmiento; Kevin Harris; Johnny Kwon; Maria T Julio; Boo Glass; Lisa Porter; Dionisio Perez; Primitivo Perdomo; Mark Doan NP; Ale Mauro; Sudarshan Cedillo; Justin Hernández Instructions Additional Instructions / Restrictions: Take your Lasix 20 mg p.o. daily for the next 7 to 10 days and follow-up with your PCP in 3 to 5 days to monitor your renal function. Given this episode of shortness of breath you may need to be on Lasix daily instead of as needed. I also started you on an iron tablet as your iron was low in June. Discharge Orders/Prescriptions Prescriptions: New ferrous gluconate 324 mg (38 mg iron) tablet 324 mg PO DAILY Qty: 30 3RF Continued buspirone 10 mg tablet 10 mg PO TID gabapentin 300 mg capsule 300 mg PO TID pantoprazole 40 mg tablet,delayed release (DR/EC) 40 mg PO BID metoprolol succinate 100 mg tablet extended release 24 hr 100 mg PO DAILY ropinirole 5 mg tablet 5 mg PO TID Patient Comments: per patient she takes at 1200, 1700, and HS insulin NPH and regular human 100 UNIT/ML suspension 22 unit SQ BID atorvastatin 80 MG tablet 80 mg PO QHS ondansetron HCl 8 MG tablet 8 mg PO Q8H PRN PRN (Reason: Nausea/Vomiting) Qty: 15 0RF sertraline 100 mg tablet 100 mg PO DAILY Xarelto 20 mg tablet 20 mg PO QHS losartan 100 mg tablet 100 mg PO 1200 amlodipine 10 mg tablet 10 mg PO 1700 aspirin [Adult Aspirin Regimen] 81 mg tablet,delayed release (DR/EC) 81 mg PO QHS furosemide [Lasix] 20 mg tablet 20 mg PO DAILY PRN (Reason: edema) promethazine 25 mg tablet 25 mg PO Q8H PRN PRN (Reason: nausea and vomiting) Anoro Ellipta 62.5-25 mcg/actuation blister with device 1 inh inhalation DAILY Referrals / Follow Up: Johnny Kwon MD [Med Staff - Active Staff] - Within 3 Months Tae Banegas DO [Primary Care Provider] - Within 1 Week Disposition Disposition (needs filled in before D/C Order can be placed): Home, Self Care
--- NOTE | 2024-10-30 15:06 | CASEMGMT ---
JULIA TOWNSEND chart review: Patient was admitted 10/10/24-10/12/24 for LGIB with BRBPR. See JULIA TOWNSEND assessment from 10/11/24. Patient was discharged to home with [facility]. Patient returned to [facility] ED on 10/28/24 for increased SOB with exertion and was admitted for acute exacerbation of CHF and respiratory insufficiency. JULIA TOWNSEND in to discuss readmission and needs at discharge. Patient states she attended follow-up appt with PCP office. Patient states she has been taking her medicaitons as prescribed and [facility] has been out to work with patient. JULIA TOWNSEND inquired if patient weighs self daily, patient states she does not. JULIA Whiting inquired if patient avoid salty foods, patient replied she was not aware she should. Patient states she recently had [employer] recently. JULIA TOWNSEND provided education regarding CHF diagnosis and importance of limiting sodium intake. Patient states that nursing had provided handout. Patient denies further needs or help at discharge and wishes to return home with resumption of [facility]. Patient does not qualify for home oxygen. Patient has order for discharge, resumption order placed. JULIA TOWNSEND called [facility] regarding discharge and requested nursing to provide additional education to patient at next visit.
--- NOTE | 2024-10-30 16:13 | PHA.DC_ITS ---
Pharmacy [facility] has performed discharge medication reconciliation and counseling for this patient. This [facility] told patient she is supposed to take her 20mg furosemide daily for 7-10 days until she sees her PCP per D/C instructions. Patient reported she does not have any furosemide, confirmed there have been no fills in her fill history for at least a year. Texted Dr. Vargas who said he will send furosemide to her pharmacy. 1. FERROUS GLUCONATE 324MG PO DAILY The patient's discharge medication list was reviewed for discrepancies and discrepancies were resolved. The patient was counseled on the following discharge medications and changes in medications for homegoing were reviewed. The Reason for Use, instructions for use, and potential side effects were reviewed for all new medications. The patient's questions regarding all of their medications were answered. The patient was able to verbally demonstrate an understanding of their discharge medications. Medications at Discharge Home Medications atorvastatin 80 mg tablet 80 mg PO QHS cholesterol 07/31/17 insulin human U-100 NPH-regulr 70-30 mix 100 unit/mL subcutaneous susp 22 unit SQ BID diabetes 07/31/17 ondansetron HCl 8 mg tablet 8 mg PO Q8H PRN PRN Nausea/Vomiting #15 tabs 01/06/21 rivaroxaban 20 mg tablet (Xarelto) 20 mg PO QHS a fib 07/07/21 sertraline 100 mg tablet 100 mg PO DAILY depression 07/07/21 buspirone 10 mg tablet 10 mg PO TID cyclic vommitting 09/28/23 gabapentin 300 mg capsule 300 mg PO TID cyclic vomitting 09/28/23 pantoprazole 40 mg tablet,delayed release 40 mg PO BID cyclic vomiting 09/28/23 metoprolol succinate 100 mg tablet,extended release 24 hr 100 mg PO DAILY irreg. heart beat 03/24/24 ropinirole 5 mg tablet 5 mg PO TID restless legs 03/24/24 amlodipine 10 mg tablet 10 mg PO 1700 blood pressure 10/10/24 aspirin 81 mg tablet,delayed release (Adult Aspirin Regimen) 81 mg PO QHS heart 10/10/24 losartan 100 mg tablet 100 mg PO 1200 blood pressure 10/10/24 promethazine 25 mg tablet 25 mg PO Q8H PRN PRN nausea and vomiting 10/10/24 umeclidinium 62.5 mcg-vilanterol 25 mcg/actuation powdr for inhalation (Anoro Ellipta) 1 inh inhalation DAILY wheeze 10/10/24 ferrous gluconate 324 mg (38 mg iron) tablet 324 mg PO DAILY #30 tabs 10/30/24 furosemide 20 mg tablet (Lasix) 20 mg PO DAILY edema 30 days #30 tabs 10/30/24
--- NOTE | 2024-10-30 16:46 | CHAPLAIN ---
Type of Pastoral Visit _x__ Initial Visit ___ Follow-up Visit ___ On-call Visit ___ General Patient Visit ___ Spiritual Assessment ___ Family Conference ___ Bereavement ___ Rapid Response ___ Code Blue ___ Other (describe below) Pastoral Care Referral From _x__ Patient ___ Family ___ Nurse ___ Physician ___ Furnace Repair Mechanic ___ Pretzel Twisting Machine Operator ___ Other (describe below) Sacrament/Intervention _x__ Active listening ___ Anointing ___ Temple ___ Bereavement ___ Communion ___ Leti exploration ___ ___ Life review _x__ Prayer ___ Reconciliation ___ Sacrament of Sick _x__ Supportive presence ___ Wedding ___ Other (describe below) Pastoral Comments
[2024-10-30 17:11] LABS: Magnesium 1.9 mg/dL (1.6-2.6)
[2024-10-30] MEDS: Rivaroxaban 20 MG Tablet PO (17:22)
--- NOTE | 2024-10-30 17:34 | DS.PCM_ITS ---
Providers Date of Admission: 10/29/24 Primary Care Physician: Dr. Tae Banegas, DO Consultations 10/29/24 01:27 Consult: Cardiology Routine Consulting Provider: Niranjan Cadet Reason for Consult: Newly diagnosed CHF. EMERGENT Consult: No MD Notified: Yes Date Notified: 10/29/24 Time Notified: 06:47 Method of Notification: Text Method of Consult:: In-Person Reason For Visit: AE CHF AND RESPIRATOR INSUFFICIENCY Diagnosis Discharge Diagnosis (1) CHF exacerbation: Status: Chronic Code(s): I50.9 - Heart failure, unspecified Qualifiers: Heart failure type: unspecified Qualified Code(s): I50.9 - Heart failure, unspecified (2) Respiratory insufficiency: Status: Acute Code(s): R06.89 - Other abnormalities of breathing (3) Obesity (BMI 30.0-34.9): Status: Acute Code(s): E66.811 - Obesity, class 1 (4) Essential hypertension: Status: Acute Code(s): I10 - Essential (primary) hypertension (5) Generalized weakness: Status: Acute Code(s): R53.1 - Weakness (6) Paroxysmal atrial fibrillation: Status: Acute Code(s): I48.0 - Paroxysmal atrial fibrillation (7) Atherosclerosis of coronary artery of cheesh-na heart without angina pectoris: Status: Chronic Code(s): I25.10 - Atherosclerotic heart disease of cheesh-na coronary artery without angina pectoris Qualifiers: Coronary Disease-Associated Artery/Lesion type: cheesh-na artery Qualified Code(s): I25.10 - Atherosclerotic heart disease of cheesh-na coronary artery without angina pectoris Medications at Discharge Home Medications atorvastatin 80 mg tablet 80 mg PO QHS cholesterol 07/31/17 insulin human U-100 NPH-regulr 70-30 mix 100 unit/mL subcutaneous susp 22 unit SQ BID diabetes 07/31/17 ondansetron HCl 8 mg tablet 8 mg PO Q8H PRN PRN Nausea/Vomiting #15 tabs 01/06/21 rivaroxaban 20 mg tablet (Xarelto) 20 mg PO QHS a fib 07/07/21 sertraline 100 mg tablet 100 mg PO DAILY depression 07/07/21 buspirone 10 mg tablet 10 mg PO TID cyclic vommitting 09/28/23 gabapentin 300 mg capsule 300 mg PO TID cyclic vomitting 09/28/23 pantoprazole 40 mg tablet,delayed release 40 mg PO BID cyclic vomiting 09/28/23 metoprolol succinate 100 mg tablet,extended release 24 hr 100 mg PO DAILY irreg. heart beat 03/24/24 ropinirole 5 mg tablet 5 mg PO TID restless legs 03/24/24 amlodipine 10 mg tablet 10 mg PO 1700 blood pressure 10/10/24 aspirin 81 mg tablet,delayed release (Adult Aspirin Regimen) 81 mg PO QHS heart 10/10/24 losartan 100 mg tablet 100 mg PO 1200 blood pressure 10/10/24 promethazine 25 mg tablet 25 mg PO Q8H PRN PRN nausea and vomiting 10/10/24 umeclidinium 62.5 mcg-vilanterol 25 mcg/actuation powdr for inhalation (Anoro Ellipta) 1 inh inhalation DAILY wheeze 10/10/24 ferrous gluconate 324 mg (38 mg iron) tablet 324 mg PO DAILY #30 tabs 10/30/24 furosemide 20 mg tablet (Lasix) 20 mg PO DAILY edema 30 days #30 tabs 10/30/24 Hospital Course Operations None Procedures 2-D Echocardiogram Summary of Care Provided Minutes Spent on Discharge: 32 Hospital Course: Per HPI: TACOS ESPINOZA, is a 74 F with a past medical history of essential hypertension; on amlodipine, losartan, metoprolol and prn furosemide for edema, hyperlipidemia; on atorvastatin, obesity; with BMI of 32 this admission, NAFLD, history of tobacco abuse (quit 2008); with subsequent asthma/COPD, CAD; s/p CABG x 2 (2002) with subsequent [facility] (11/2023) on BASA, DM-2; of unknown control on NPH insulin 22 sq. BID + SSI, diabetic neuropathy; on gabapentin, history of nonproliferative diabetic retinopathy, history of atrial fibrillation; on rivaroxaban s/p DCCV (2014) & radiofrequency ablation (2015), PVD; with claudication s/p angioplasty (2012), CKD; stage III, chronic anemia, history of Renal Cell Carcinoma; s/p partial Right nephrectomy (2014), history of bladder repair surgery, RLS; on ropinirole, history of depression; on buspirone, sertraline and trazodone along with listed allergy to Dofetilide (long QT), listed allergy to Haldol (?), history of cyclic vomiting syndrome; with listed allergy to Reglan and Benadryl (restless legs), history of cholecystectomy (2018), history of hysterectomy (1995), history of Right femur fracture; s/p ORIF, OA; with DDD and Lumbar Spinal Stenosis with Radiculopathy; s/p Laminectomy and Muscle Spasms, Chronic Back Pain; on Methocarbamol q. 6 h prn plus Oxycodone q. 4h prn and Chronic Debility; with patient using a walker to mobilize and recent admission here from October 10, 2024 to October 12, 2024 for LGIB with BRBPR suspected to be due to adverse drug reaction to combination of BASA and Xarelto with subsequent colonoscopy showing nonbleeding external and internal hemorrhoids and diverticulosis in the rectosigmoid colon and EGD revealing no gross lesions in the entire esophagus with a single gastric polyp that was resected and retrieved who now re-presents to [facility] ER complaining of shortness of breath and lower extremity edema. Ms. Espinoza reports her symptoms began approximately 2 days prior to admission when she noted worsening dyspnea on exertion. She states she can barely walk across the room without stopping to catch her breath which is new for her. She then used her pulse-oximeter from home which revealed oxygen saturation that was allegedly in the ~60% range so she activated EMS. She states that she has not missed any doses of her medications including her Xarelto but she does admit to [id number] bilateral lower extremity pitting edema that is now persistent and worsening. She denies a history of heart failure. She denies associated fever, chills, nausea, vomiting, diarrhea, constipation, chest pain, sinus congestion, cough or dysuria. In the ER she was noted to have an elevated D- dimer of 0.65 present on admission and then she underwent a CTA of the chest that was negative for PE but positive for pulmonary vascular congestion with an elevated BNP of 437.6 present on admission consistent with suspected AE CHF of uncertain type complicated by clinical evidence of acute respiratory insufficiency with a stable hemoglobin of 10.8 g/dL present on admission. She was then admitted to the PCU for ongoing care for stay that is expected to extend beyond 2 midnights. Hospital Course: 1. Acute on chronic diastolic CHF with pulmonary hypertension/CAD status post CABG/essential HTN/HLD/paroxysmal A-fib?74-year-old female presented to the hospital with increasing shortness of breath for 2 days prior to admission. She was started on IV Lasix with significant improvement in her symptoms. After about 36 hours of admission she was on room air. She had an ambulatory pulse ox that did not demonstrate a need for oxygen with ambulation or at rest. Initially at home she was on Lasix as needed and had not taken any Lasix in about a year however echo on this admission demonstrates an EF of 55% with a PASP of 50 mmHg. She is feeling much better today and states that she is breathing much better. I discussed with her the possibility of going home today versus tomorrow and she expressed understanding there is benefits of going home and would like to go home today. She did improve faster than anticipated. I did discharge her on Lasix 20 mg p.o. daily to lease take for the next 7 to 10 days consistently and to follow-up with her PCP in 3 to 5 days to monitor her renal function and to adjust her medications as indicated. With her PASP of 50 mmHg, she may benefit from continued daily dosing of her Lasix. I do also recommend she follow-up with cardiology as an outpatient as well. 2. Type 2 diabetes, CKD 3A, chronic anemia, history of renal cell carcinoma status post partial right nephrectomy, RLS, anxiety, depression are all chronic medical conditions which complicate her care. Her home medications were continued where appropriate Physical Exam Narrative General: Alert, Oriented x3, Cooperative, No apparent distress HEENT: Atraumatic, PERRLA, EOMI, Normocephalic Oral: Moist Mucosa Neck: Supple, No JVD Lungs: Diminished, Normal air movement, No rhonchi, No wheeze, No rales Cardiovascular: Regular rate, Regular Rhythm, Normal S1, Normal S2, No murmurs Abdomen: Soft, Non Tender, Non-Distended, No Hepato-splenomegaly Extremities: No edema, Capillary Refill Less than 3 Seconds Skin: No rashes, No breakdown Musculoskeletal: No Tenderness to Palpation of Joints or Extremities Neurological: No focal neurological deficits, Motor Exam 5/5 strength throughout, Sensory exam intact to light touch and pain Psych/Mental Status: Normal Affect, Appropriate Weight / BMI Weight Weight: 201 lb 15.095 oz Body Mass Index (BMI) 30.6 ABG / Lab / Microbiology Data 10/30/24 03:51 10/30/24 03:51 Laboratory: Laboratory Results - last 24 hr 10/29/24 22:37: POC Glucose 214 H 10/30/24 03:51: WBC 7.1, RBC 3.54 L, Hgb 9.9 L, Hct 32.1 L, MCV 90.7, MCH 28.0, MCHC 30.8 L, RDW Std Deviation 46.8 H, RDW Coeff of Ray 14.0, Plt Count 180, MPV 9.4, Immature Gran % (Auto) 0.400, Neut % (Auto) 69.9, Lymph % (Auto) 20.0, [place] % (Auto) 7.1, Eos % (Auto) 2.0, Baso % (Auto) 0.6, Absolute Neuts (auto) 4.9, Absolute Lymphs (auto) 1.41, Nucleated RBC % 0, Sodium 141, Potassium 4.5, C hloride 112 H, Carbon Dioxide 25.0, Anion Gap 4 L, BUN 29 H, Creatinine 1.11 H, Estim Creat Clear Calc 54.31, Est GFR (MDRD) Af Amer 62, Est GFR (MDRD) Non-Af 51 L, BUN/Creatinine Ratio 26.1 H, Glucose 145 H, Calcium 9.0, Magnesium 1.9 10/30/24 08:36: POC Glucose 157 H 10/30/24 12:06: POC Glucose 182 H 10/30/24 17:18: POC Glucose 178 H Microbiology: Microbiology 10/29/24 07:47 Mucosa - Nasopharyngeal Respiratory Panel (PCR) - Final Radiography Diagnostic Testing: Radiology Impression Echocardiogram 10/29/24 01:11 Interpretation Summary Normal LV size. Left ventricular systolic function is normal. The left ventricular ejection fraction is 55 %. Moderate focal aortic valve calcification. Pulmonary artery systolic pressure is 50 mmHg. Ordering Physician: Sudarshan Cedillo Performed By: Rosalba Lin RDCS D/C Instructions Discharge Diet: Low fat / Low cholesterol Call your doctor if you observe: Fever of 101 or Higher, Shortness of breath, Dizziness, Fainting spells, Swelling in the ankles, Chest pain and Increased palpitations (irregular heartbeat) DC O2, CPAP, BIPAP Needs RN Home O2 Qualification: Home O2 Qualification: Is the patient on home oxygen No 10/30/24 13:55 Home O2 Qualification: AT REST 1- Pulse Ox at rest 99 10/30/24 13:55 Home O2 Qualification: WITH AMBULATION 1- Pulse Ox with ambulation 90 10/30/24 13:55 1- Oxygen Flow Rate with 0 10/30/24 13:55 ambulation Additional Home O2 Discharge instructions: No DC home with Oxygen: No Meaningful Use Info Meaningful Use Meaningful Use Diagnoses (Choose all that apply): None applicable Ischemic Stroke Statin Dosing Therapy Reference: STATIN DOSE THERAPY REFERENCE: * Patients > 75 years receive moderate or high dose statin therapy. * Patients 75 years or YOUNGER should receive HIGH intensity statin dose unless contraindicated. You will be required to document reason for non-treatment if statin daily dose does not meet guidelines. HIGH DOSE STATIN THERAPY DAILY Atorvastatin > than or = to 40 mg Rosuvastatin > than or = to 20 mg Amlodipine + Atorvastatin > than or = to 2.5/40 mg Ezetimibe + Simvastatin 10/80 mg Simvastatin 80mg Discharge Plan Admission Admit Date/Time: 10/29/24 01:01 Attending Provider: Nitish Vargas Primary Care Provider: Tae Banegas Consulting Providers: Cesia Wilson; Sofi Sarmiento; Kevin Harris; Johnny Kwon; Maria T Julio; Boo Glass; Lisa Porter; Dionisio Perez; Primitivo Perdomo; Mark Doan NP; Ale Mauro; Sudarshan Cedillo; Justin Hernández Instructions Additional Instructions / Restrictions: Take your Lasix 20 mg p.o. daily for the next 7 to 10 days and follow-up with your PCP in 3 to 5 days to monitor your renal function. Given this episode of shortness of breath you may need to be on Lasix daily instead of as needed. I also started you on an iron tablet as your iron was low in June. Discharge Orders/Prescriptions Prescriptions: New ferrous gluconate 324 mg (38 mg iron) tablet 324 mg PO DAILY Qty: 30 3RF Continued buspirone 10 mg tablet 10 mg PO TID gabapentin 300 mg capsule 300 mg PO TID pantoprazole 40 mg tablet,delayed release (DR/EC) 40 mg PO BID metoprolol succinate 100 mg tablet extended release 24 hr 100 mg PO DAILY ropinirole 5 mg tablet 5 mg PO TID Patient Comments: per patient she takes at 1200, 1700, and HS insulin NPH and regular human 100 UNIT/ML suspension 22 unit SQ BID atorvastatin 80 MG tablet 80 mg PO QHS ondansetron HCl 8 MG tablet 8 mg PO Q8H PRN PRN (Reason: Nausea/Vomiting) Qty: 15 0RF sertraline 100 mg tablet 100 mg PO DAILY Xarelto 20 mg tablet 20 mg PO QHS losartan 100 mg tablet 100 mg PO 1200 amlodipine 10 mg tablet 10 mg PO 1700 aspirin [Adult Aspirin Regimen] 81 mg tablet,delayed release (DR/EC) 81 mg PO QHS promethazine 25 mg tablet 25 mg PO Q8H PRN PRN (Reason: nausea and vomiting) Anoro Ellipta 62.5-25 mcg/actuation blister with device 1 inh inhalation DAILY Changed furosemide [Lasix] 20 mg tablet 20 mg PO DAILY 30 Days Qty: 30 0RF Referrals / Follow Up: Johnny Kwon MD [Med Staff - Active Staff] - Within 3 Months Tae Banegas DO [Primary Care Provider] - Within 1 Week Disposition Disposition (needs filled in before D/C Order can be placed): Home, Self Care Charges/Coding Visit Charges Inpatient E&M: 16537 Disch Hosp >30min
[2024-10-30 17:40] LABS: Bedside Glucose 178 mg/dL (74-106)
== END 2024-10-30 18:20 | disposition home or self-care (01) | DRG 291 ==
LOC: ED 10-29 01:05 → PCU 10-29 01:25
PROVIDERS: Internal Medicine; Admitting Provider Internal Medicine; Emergency Provider Surgery; PCP Student in an Organized Health Care Education/Training Program; Visit Provider Family Medicine
DX: I13.0 Hypertensive heart and chronic kidney disease with heart failure and stage 1 through stage 4 chronic kidney disease, or unspecified chronic kidney disease (principal); I50.33 Acute on chronic diastolic (congestive) heart failure; I27.20 Pulmonary hypertension, unspecified; E11.22 Type 2 diabetes mellitus with diabetic chronic kidney disease; D64.9 Anemia, unspecified; E11.3299 Type 2 diabetes mellitus with mild nonproliferative diabetic retinopathy without macular edema, unspecified eye; Z79.01 Long term (current) use of anticoagulants; N18.30 Chronic kidney disease, stage 3 unspecified; J44.9 Chronic obstructive pulmonary disease, unspecified; Z68.32 Body mass index [BMI] 32.0-32.9, adult; I48.0 Paroxysmal atrial fibrillation; E11.65 Type 2 diabetes mellitus with hyperglycemia; E11.51 Type 2 diabetes mellitus with diabetic peripheral angiopathy without gangrene; I25.10 Atherosclerotic heart disease of native coronary artery without angina pectoris; Z79.4 Long term (current) use of insulin; K31.7 Polyp of stomach and duodenum; K57.30 Diverticulosis of large intestine without perforation or abscess without bleeding; M48.061 Spinal stenosis, lumbar region without neurogenic claudication; I45.81 Long QT syndrome; M19.90 Unspecified osteoarthritis, unspecified site; E11.42 Type 2 diabetes mellitus with diabetic polyneuropathy; K64.8 Other hemorrhoids; E78.00 Pure hypercholesterolemia, unspecified; F41.9 Anxiety disorder, unspecified; N18.31 Chronic kidney disease, stage 3a; G89.29 Other chronic pain; Z80.0 Family history of malignant neoplasm of digestive organs; R53.1 Weakness; Z90.710 Acquired absence of both cervix and uterus; Z87.891 Personal history of nicotine dependence; E66.811 Obesity, class 1
CPT/HCPCS: 36415; 71046; 71275; 80048; 80053; 82962; 83036; 83735; 83880; 84100; 84443; 84484; 85025; 85379; 87633; 93005; 93306; 94640; 94668; 97162; 97166; 97802; 99285; Q9967; A4216; J1940

== ENCOUNTER 2024-12-18 12:53 | Outpatient (RCR) | payer MEDICARE, MEDICAID, SELFPAY ==
[2024-12-18 13:52] LABS: Color, Urine Yellow (Yellow); Glucose, Dipstick Normal (Normal); Ketone-Dipstick Negative (Negative); Leukocyte Esterase-Dipstick 500 /ul (Negative); Nitrite-Dipstick Positive (Negative); Occult Blood-Urine 50 /ul (Negative); Protein-Dipstick 30 mg/dl (Negative); Specific Gravity, Urine 1.015 (1.002-1.030); Urine Bilirubin Dipstick Negative (Negative); Urine Clarity Cloudy (Clear); Urine Urobilinogen 1 mg/dl (Normal)
== END 2024-12-18 18:00 | disposition home or self-care (01) ==
LOC: HHLAB 12:53
PROVIDERS: PCP Student in an Organized Health Care Education/Training Program; Referring Provider Nurse Practitioner Family; Visit Provider Nurse Practitioner Family
DX: I13.0 Hypertensive heart and chronic kidney disease with heart failure and stage 1 through stage 4 chronic kidney disease, or unspecified chronic kidney disease (principal); I50.33 Acute on chronic diastolic (congestive) heart failure; N18.31 Chronic kidney disease, stage 3a; E11.22 Type 2 diabetes mellitus with diabetic chronic kidney disease
CPT/HCPCS: 81002; 87077; 87086; 87088; 87186

== ENCOUNTER 2025-06-22 15:12 | Emergency (ER) | payer MEDICARE, MEDICAID, SELFPAY ==
[2025-06-22] VITALS (9 sets, daily range): BP systolic 97–130; BP diastolic 48–73; PULSE 66–83; RESP 18–26; TEMP 36.5–36.6; O2SAT 88–95; BMI 32.5
--- NOTE | 2025-06-22 15:40 | EKG12_ITS ---
Test Reason : Blood Pressure : */* mmHG Vent. Rate : 73 BPM Atrial Rate : 73 BPM P-R Int : 144 ms QRS Dur : 86 ms QT Int : 420 ms P-R-T Axes : 96 56 24 degrees QTcB Int : 462 ms Normal sinus rhythm with sinus arrhythmia Nonspecific ST abnormality Abnormal ECG When compared with ECG of 28-Oct-2024 21:22, No significant change was found Confirmed by EMY MORRIS MD ([id number]), multimedia editor EFRAIN WALLACE ([id number]) on 06/27/2025 7:33:56 AM Referred By: Edwin Arredondo Confirmed By: EMY MORRIS MD
[2025-06-22 15:51] LABS: Hematocrit 32.4 % (37-47); Hemoglobin 10.9 g/dL (12.0-15.0); Immature Granulocytes Count 0.060 X10^3/uL (0.0-0.0); Mean Corp Hgb Conc 33.6 g/dL (32-36); Mean Corpuscular Volume 89.5 fL (81-99); Mean Platelet Vol. 9.6 fl (6.2-12.0); NRBC Flagged by Analyzer 0 % (0-5); Platelet Count 155 K/mm3 (150-450); RBC Distribution Width CV 14.2 % (11.6-14.6); RBC Distribution Width SD 46.0 fl (35.1-43.9); Red Blood Count 3.62 M/mm3 (4.2-5.4); White Blood Count 12.3 K/mm3 (4.4-11.0)
--- NOTE | 2025-06-22 15:51 | CT_ITS ---
EXAM: CT BRAIN/HEAD WITHOUT CONTRAST; CT SPINE CERVICAL WITHOUT CONTRAST CLINICAL HISTORY: FALL, PAIN COMPARISON: 03/29/2019 TECHNIQUE: Noncontrast CT images of the head and cervical spine with multiplanar reconstructions. Dose reduction techniques were used including intermediate exposure control (AEC),iterative reconstruction technique, and/or mA and/or KV dose adjustments based on patient's size. FINDINGS: HEAD: No acute intracranial hemorrhage, extra-axial collection, mass effect or evidence of acute infarct. Mild age-appropriate generalized brain parenchymal volume loss, and chronic microangiopathic changes. Prior left orbital cataract surgery. Atherosclerotic vascular calcifications. Intact skull base and calvarium. Mild mucosal thickening in the floors of the bilateral maxillary sinuses. Opacification of a few dependent left mastoid air cells. CERVICAL SPINE: No acute fracture or subluxation. Positional and/or degenerative straightening of the cervical lordosis. Trace grade 1 degenerative anterolisthesis of C6 on C7. Mild-moderate multilevel spondylotic changes with varying degrees of disc space narrowing, endplate sclerosis and anterior osteophytosis, uncovertebral spurring and hypertrophic facet arthropathy. No prevertebral soft tissue swelling. Moderate atherosclerotic vascular calcifications. CT/Brain/Head without Contrast IMPRESSION: No acute traumatic findings. Chronic/degenerative changes as described above. Reading Location: [id number]
--- NOTE | 2025-06-22 15:51 | CT_ITS ---
EXAM: CT BRAIN/HEAD WITHOUT CONTRAST; CT SPINE CERVICAL WITHOUT CONTRAST CLINICAL HISTORY: FALL, PAIN COMPARISON: 03/29/2019 TECHNIQUE: Noncontrast CT images of the head and cervical spine with multiplanar reconstructions. Dose reduction techniques were used including intermediate exposure control (AEC),iterative reconstruction technique, and/or mA and/or KV dose adjustments based on patient's size. FINDINGS: HEAD: No acute intracranial hemorrhage, extra-axial collection, mass effect or evidence of acute infarct. Mild age-appropriate generalized brain parenchymal volume loss, and chronic microangiopathic changes. Prior left orbital cataract surgery. Atherosclerotic vascular calcifications. Intact skull base and calvarium. Mild mucosal thickening in the floors of the bilateral maxillary sinuses. Opacification of a few dependent left mastoid air cells. CERVICAL SPINE: No acute fracture or subluxation. Positional and/or degenerative straightening of the cervical lordosis. Trace grade 1 degenerative anterolisthesis of C6 on C7. Mild-moderate multilevel spondylotic changes with varying degrees of disc space narrowing, endplate sclerosis and anterior osteophytosis, uncovertebral spurring and hypertrophic facet arthropathy. No prevertebral soft tissue swelling. Moderate atherosclerotic vascular calcifications. CT/Spine Cervical without Contras IMPRESSION: No acute traumatic findings. Chronic/degenerative changes as described above. Reading Location: [id number]
--- NOTE | 2025-06-22 15:53 | EDS_ITS ---
HPI History of Present Illness Chief Complaint: Shortness of Breath Narrative Narrative: Chief complaint and HPI: Shortness of breath and general malaise. 75-year-old female with past medical history of DM2, atrial fibrillation on anticoagulation, CHF, HTN, HLD presents for evaluation of shortness of breath and general malaise. Patient states yesterday she developed shortness of breath and cough. Associated symptoms are weakness, body aches, episodic chest pain. Currently denying chest pain. Patient states that she did have a fall last Wednesday. States she had her head and neck. No LOC. Patient has had no recent falls. Concerned she may have a UTI secondary to dysuria. Denies any abdominal pain, nausea, vomiting. Review of systems: See HPI Medications: As listed on the chart Allergies: As listed on the chart PFSH: Per chart Vital signs: As listed on the chart. Reviewed. Physical exam: Gen: A&O x3, NAD Head: Normocephalic, atraumatic Eyes: No sclera icterus, conjunctiva clear, PERRL, EOMI ENT: moist mucous membranes Neck: Trachea midline, No JVD, no midline spinal tenderness, no bony step-offs CV: RRR, no murmurs Resp: Diminished in the bilateral bases, mild expiratory wheezing GI: Abd soft, non-distended, non-tender, no r/r/g Musc: Full ROM, no deformity, no spinal TTP, no bong step-offs Skin: Warm, dry, intact Neuro: Alert, oriented, grossly intact, sensation intact Psych: Cooperative, appropriate mood and affect [facility] Medical History Congestive heart failure Paroxysmal atrial fibrillation NAFLD (nonalcoholic fatty liver disease) Overweight (BMI 25.0-29.9) Anemia Hyperlipidemia Type 2 diabetes mellitus with hyperglycemia Lumbar radiculopathy Chronic back pain History of stress test Wears glasses Wears dentures Cancer Depression Insulin dependent diabetes mellitus Walker as ambulation aid Arthritis Fatty liver High cholesterol Restless legs History of hiatal hernia Shortness of breath on exertion Former smoker Asthma COPD (chronic obstructive pulmonary disease) Leg cramps History of echocardiogram History of stress test Cardiology follow-up encounter History of atrial fibrillation Fracture of right femur Acute dehydration Chronic atrial fibrillation with rapid ventricular response Cyclic vomiting syndrome Hypomagnesemia NPDR (nonproliferative diabetic retinopathy) Chronic vomiting Peripheral vascular occlusive disease Anxiety Renal cell carcinoma Atherosclerosis of coronary artery of [place] heart without angina pectoris Essential (primary) hypertension Gastro-esophageal reflux disease without esophagitis Peripheral neuropathy Chronic kidney disease, stage 3 Mild chronic obstructive pulmonary disease Type II diabetes mellitus Home Medications ?Medication ?Instructions ?Recorded ?Last Taken ?Type atorvastatin 80 mg tablet 80 mg PO QHS cholesterol 08/0807/17/24 History insulin human U-100 NPH-regulr 22 unit SQ BID diabetes 07/31/17 07/17/24 History 70-30 mix 100 unit/mL subcutaneous susp ondansetron HCl 8 mg tablet 8 mg PO Q8H PRN PRN Unknown Rx Nausea/Vomiting #15 tabs rivaroxaban 20 mg tablet (Xarelto) 20 mg PO QHS a fib 07/07/21 07/15/24 History sertraline 100 mg tablet 100 mg PO DAILY depression 0 07/07/21 07/17/24 History buspirone 10 mg tablet 10 mg PO TID cyclic vommitti ng 09/28/23 07/17/24 History gabapentin 300 mg capsule 300 mg PO TID cyclic vomitti ng 09/28/23 07/17/24 History pantoprazole 40 mg tablet,delayed 40 mg PO BID cyclic vomiting 09/28/23 07/17/24 History release ropinirole 5 mg tablet 5 mg PO TID restless legs 07/17/24 History amlodipine 10 mg tablet 10 mg PO 1700 blood pressure 10/10/24 Unknown History aspirin 81 mg tablet,delayed 81 mg PO QHS heart Unknown History release (Adult Aspirin Regimen) umeclidinium 62.5 mcg-vilanterol 1 inh inhalation MARY Y wheeze 10/10/24 Unknown History 25 mcg/actuation powdr for inhalation (Anoro Ellipta) ferrous gluconate 324 mg (38 mg 324 mg PO DAILY #30 ta bs 10/30/24 Unknown Rx iron) tablet furosemide 20 mg tablet (Lasix) 20 mg PO DAILY edema 3 0 days #30 10/30/24 Unknown Rx tabs losartan 50 mg tablet mg PO DAILY 01/18/25 Unknown History metoprolol succinate 50 mg mg PO 01/18/25 Unknown Hist ory tablet,extended release 24 hr sennosides 8.6 mg capsule (senna) 8.6 mg PO QDAY PRN 0 01/18/25 Unknown History albuterol sulfate 2.5 mg/3 mL 2.5 mg (3 mL) inhalation Q4H PRN 06/22/25 Unknown Rx (0.083 %) solution for nebulization #25 vials levofloxacin 750 mg tablet 750 mg PO DAILY 5 days #5 t abs 06/22/25 Unknown Rx nitrofurantoin 100 mg PO Q12H 5 days #10 ca ps 06/22/25 Unknown Rx monohydrate/macrocrystals 100 mg capsule (Macrobid) Allergy/AdvReac Type Severity Reaction Status Date / Time diphenhydramine HCl (From AdvReac restless Verified 01/18/25 13:11 Benadryl) legs dofetilide AdvReac LONG QT Verified 01/18/25 13:11 haloperidol (From Haldol) AdvReac Other Verified 01/18/25 13:11 metoclopramide (From Reglan) AdvReac restless Verified 01/18/25 13:11 legs Family History Mother Cancer Stomach Father Colon cancer Heart disease Sister Colon cancer Surgical History History of bladder repair surgery History of cardiac catheterization (~11/2023) History of angioplasty of peripheral vessel (07/2013) History of cholecystectomy (08/2019) History of radiofrequency ablation procedure for cardiac arrhythmia (03/19/16) History of cardioversion (2014) History of open reduction and internal fixation (ORIF) procedure H/O laminectomy History of colonoscopy H/O coronary artery bypass surgery (01/29/03) History of hysterectomy (1995) History of esophagogastroduodenoscopy (EGD) (01/2018) History of partial nephrectomy Social History household members: none Smoking Status: Former smoker pack-years: 40 how long ago did patient quit smokin alcohol intake: never substance use type: does not use caffeine: Yes (Occasionally) Type: carbonated beverages EXAM Physical Exam Const Vital Signs: 06/22/25 15:13 06/22/25 15:15 06/22/25 16:01 Temperature 97.7 F L 97.7 F L Temperature Source Oral Temporal Pulse Rate 77 77 Respiratory Rate 18 18 Respiratory Effort Short of Breath Respiratory Depth Shallow Respiratory Pattern Tachypnea Blood Pressure 127/62 H 127/62 H Blood Pressure Mean 83 83 Pulse Ox 88 88 Oxygen Delivery Method Room Air Room Air Room Air 06/22/25 16:15 06/22/25 16:18 06/22/25 17:12 Temperature 97.7 F L Temperature Source Temporal Pulse Rate 79 74 83 Respiratory Rate 23 H 26 H 18 Respiratory Effort Respiratory Depth Respiratory Pattern Tachypnea Blood Pressure 97/48 L 117/60 Blood Pressure Mean 64 79 Pulse Ox 93 95 Oxygen Delivery Method Room Air Room Air 06/22/25 18:01 06/22/25 20:00 Temperature 98 F Temperature Source Pulse Rate 66 Respiratory Rate 18 Respiratory Effort Respiratory Depth Respiratory Pattern Blood Pressure 130/73 H 101/48 L Blood Pressure Mean 92 65 Pulse Ox 93 Oxygen Delivery Method MDM MDM MDM Narrative Medical decision making narrative: 75-year-old female with past medical history of DM2, atrial fibrillation on anticoagulation, CHF, HTN, HLD presents for evaluation of shortness of breath and general malaise. Patient states yesterday she developed shortness of breath and cough. Associated symptoms are weakness, body aches, episodic chest pain, dysuria. Patient endorses a recent fall approximately 1 week ago. Endorses neck pain. Differential diagnosis includes but is not limited to pneumonia, viral illness, ACS, CHF exacerbation, neck contusion, neck fracture, intracranial bleed. DuoNeb ordered for wheezing. Respiratory workup ordered. Presentation, patient no acute distress, nontoxic-appearing. Not hypoxic. Chest x-ray without obvious pneumonia or effusion. Quality of the x-ray is limited by body habitus. Therefore we will get CT chest. CBC with mild leukocytosis of 12.3. Patient has stable anemia. BMP shows CKD with a BUN of 30 and creatinine 1.43. Hyperglycemia with known diabetes. Troponin unremarkable x 2. BNP elevated at 6962. Patient is not overtly fluid overloaded on chest x-ray or physical exam. Likely increased elevation due to CKD. UA positive for UTI. On chart review, patient has grown E. coli in the past. Sensitive to Macrobid and resistant to have her medications. Macrobid ordered. Urine culture sent. CT head and neck negative for traumatic injury or acute abnormality. CTA chest negative for PE. Patient has scattered lung opacities bilaterally, likely multifocal infectious process. Bilateral subpleural and basilar reticular pattern and groundglass opacification with mild traction bronchiectasis and honeycombing, suggest interstitial pneumonia pattern of interstitial lung disease. Antral luminal debris out the esophagus, likely reflux which increases the patient's risk to aspiration. I reexamination, patient's mild wheezing has improved. She states her shortness of breath is improved. Her vitals are stable here in the emergency department without hypoxia. Patient ambulated in the emergency department without difficulty. No hypoxia during ambulation. Patient and family member in the room updated of all results and everyone is comfortable with discharging home. Strict return precautions were explained. Follow-up with PCP and refer to pulmonology for possible interstitial lung disease. Prescriptions written for Macrobid as well as Levaquin for pneumonia. Patient does have CKD. I did talk to the pharmacist who confirmed that full-strength Levaquin was okay with the CKD. Patient discharged home. First doses of antibiotics given here. Patient was told to monitor her sugars closely at home. EKG: Interpreted by me/EM physician: EKG shows normal sinus rhythm. Nonspecific ST changes. Heart rate 73 Diagnostic: Interpreted by me/EM physician: Chest x-ray shows bilateral infiltrates. No obvious pneumonia/consolidation, effusion, pneumothorax, cardiomegaly. Radiology in agreement. Quality of x-ray limited by body habitus. Impression: 1. Pneumonia 2. UTI 3. CKD 4. Hyperglycemia and known type II diabetic Lab Data Labs: Laboratory Results - last 24 hr 06/22/25 06/22/25 06/22/25 15:21 17:31 18:44 WBC 12.3 H RBC 3.62 L Hgb 10.9 L Hct 32.4 L MCV 89.5 MCH 30.1 MCHC 33.6 RDW Std Deviation 46.0 H RDW Coeff of Ray 14.2 Plt Count 155 MPV 9.6 Immature Gran % (Auto) 0.500 Neut % (Auto) 84.8 H Lymph % (Auto) 9.8 L [place] % (Auto) 4.7 Eos % (Auto) 0.0 Baso % (Auto) 0.2 Absolute Neuts (auto) 10.4 H Absolute Lymphs (auto) 1.20 Nucleated RBC % 0 Sodium 138 Potassium 4.8 Chloride 102 Carbon Dioxide 20.2 L Anion Gap 15 BUN 30 H Creatinine 1.43 H Est GFR (MDRD) Non-Af 39 L BUN/Creatinine Ratio 20.9 H Glucose 245 H Calcium 9.0 Troponin T High Sens 10 Troponin T Hi Sens 2 Hr 7 NT pro BNP II 6962 H Urine Color Yellow Urine Clarity Cloudy Urine pH 5.0 Ur Specific [place] 1.015 Urine Protein 30 H Urine Glucose (UA) Normal Urine Ketones Negative Urine Occult Blood 50 H Urine Nitrite Negative Urine Bilirubin Negative Urine Urobilinogen Normal Ur Leukocyte Esterase 500 H Urine RBC 5-10 SEEN Urine WBC >100 SEEN Ur Squamous Epith Cells 10-25 SEEN Urine Bacteria RARE Hyaline Casts 0-5 SEEN Urine Mucus 0 SEEN Radiography Diagnostic Testing: Clinical Impression(s) from Imaging Studies Brain CT 06/22/25 15:51 IMPRESSION: No acute traumatic findings. Chronic/degenerative changes as described above. Reading Location: [facility] Cervical Spine CT 06/22/25 15:51 IMPRESSION: No acute traumatic findings. Chronic/degenerative changes as described above. Reading Location: [facility] Chest X-Ray 06/22/25 16:05 IMPRESSION: Examination limited by hypoinflation, AP portable technique, and by patient m otion as well. Sdmat-jcjvysl-itby-left bilateral pulmonary densities appear diminished overall, given differences in technique. No pleural effusion or pneumothorax is seen. The cardiomediastinal silhouette is stable, with a calcified aorta noted; no evidence of cardiomegaly. Prior sternotomy again seen. Reading Location: [id number] Chest CTA 06/22/25 16:38 IMPRESSION: 1. No evidence of pulmonary embolus. 2. Scattered lung opacities bilaterally, likely multifocal infectious process. 3. Bilateral subpleural and basilar reticular pattern and groundglass opacification with mild traction bronchiectasis and honeycombing. Findings suggest usual interstitial pneumonia (UIP) pattern of interstitial lung disease. 4. Intraluminal debris throughout the esophagus, may reflect esophageal dysmotility or reflux disease. This patient is at increased risk for aspiration. Reading Location: [facility] Discharge Plan Triage Chief Complaint: Shortness of Breath ED Provider: Edwin Arredondo Dx/Rx/DC Orders Clinical Impression: Pneumonia, Acute UTI Instructions: Urinary Tract Infections in Women, ED Pneumonia (Adult) Prescriptions: New albuterol sulfate 2.5 mg /3 mL (0.083 %) solution for nebulization 2.5 mg inhalation Q4H PRN Qty: 25 0RF Rx Instructions: Use q4 hours and PRN for wheezing levofloxacin 750 mg tablet 750 mg PO DAILY 5 Days Qty: 5 0RF nitrofurantoin monohyd/m-cryst [Macrobid] 100 mg capsule 100 mg PO Q12H 5 Days Qty: 10 0RF Rx Instructions: must administer with a meal/food No Action buspirone 10 mg tablet 10 mg PO TID gabapentin 300 mg capsule 300 mg PO TID pantoprazole 40 mg tablet,delayed release (DR/EC) 40 mg PO BID ropinirole 5 mg tablet 5 mg PO TID Patient Comments: per patient she takes at 1200, 1700, and HS losartan 50 mg tablet PO DAILY metoprolol succinate 50 mg tablet extended release 24 hr PO Patient Comments: [NO ORIGINAL SIG] senna 8.6 mg capsule 8.6 mg PO QDAY PRN insulin NPH and regular human 100 UNIT/ML suspension 22 unit SQ BID atorvastatin 80 MG tablet 80 mg PO QHS ondansetron HCl 8 MG tablet 8 mg PO Q8H PRN PRN (Reason: Nausea/Vomiting) Qty: 15 0RF sertraline 100 mg tablet 100 mg PO DAILY Xarelto 20 mg tablet 20 mg PO QHS amlodipine 10 mg tablet 10 mg PO 1700 aspirin [Adult Aspirin Regimen] 81 mg tablet,delayed release (DR/EC) 81 mg PO QHS Anoro Ellipta 62.5-25 mcg/actuation blister with device 1 inh inhalation DAILY ferrous gluconate 324 mg (38 mg iron) tablet 324 mg PO DAILY Qty: 30 3RF furosemide [Lasix] 20 mg tablet 20 mg PO DAILY 30 Days Qty: 30 0RF Primary Care Provider: Tae Banegas Referrals: Pasha Galicia DO [Med Staff - Active Staff] - 3-5 Days Tae Banegas DO [Primary Care Provider] - 3-5 Days Activity Restrictions/Additional Instructions: Take all of your antibiotics. One is for your pneumonia, the other one for the UTI. You received both doses here in the emergency department. Take your next dose is tomorrow morning. Return back to the ED if symptoms change or worsen. You need to follow-up with your primary care physician as well as pulmonology. Monitor your glucose closely at home. Albuterol as needed for wheezing. Print Language: Danish Disposition Disposition: Home, Self Care Discharge Date/Time: 06/22/25 20:22
--- NOTE | 2025-06-22 16:05 | RAD_ITS ---
PROCEDURE: CHEST PA AND LATERAL 06/22/2025 REASON FOR EXAM: SHORTNESS OF BREATH TECHNIQUE: CHEST PA AND LATERAL COMPARISON: AP chest of 10/28/2024. RAD/Chest PA and Lateral IMPRESSION: Examination limited by hypoinflation, AP portable technique, and by patient mot ion as well. Tzwvu-fmomfeo-xqel-left bilateral pulmonary densities appear diminished overall , given differences in technique. No pleural effusion or pneumothorax is seen. The cardiomediastinal silhouette is stable, with a calcified aorta noted; no ev idence of cardiomegaly. Prior sternotomy again seen. Reading Location: [place] [id number]
[2025-06-22 16:33] LABS: Pro- Brain NATRIURETIC PEPTIDE 6962 pg/mL (<=900)
[2025-06-22 16:34] LABS: Anion Gap 15 (5-15); BUN 30 mg/dL (4-19); BUN/Creat Ratio 20.9 RATIO (10-20); Calcium,Total 9.0 mg/dL (7.6-11.0); Carbon Dioxide 20.2 mmol/L (21.0-32.0); Chloride 102 mmol/L (98-108); Glucose 245 mg/dL (70-99); Potassium 4.8 mmol/L (3.3-5.1)
--- NOTE | 2025-06-22 16:38 | CT_ITS ---
PROCEDURE: CTA CHEST W/ CONTRAST 06/22/2025 REASON FOR EXAM: SHORTNESS OF BREATH, PE TECHNIQUE: CTA CHEST W/WO CONTRAST Multiplanar Sagittal and Coronal images were obtained. CONTRAST: Isovue-300 VOLUME: 100 mL One or more dose reduction techniques were used (e.g., Automated exposure control, adjustment of the mA and/or kV according to patient size, use of iterative reconstruction technique). RADIATION DOSE SUMMARY: CTDlvol: 14.25, 13.79 mGy DLP: 448.73 mGycm COMPARISON: CTA Chest W/WO Contrast - 28-Oct-2024 11:20 PM FINDINGS: PULMONARY ARTERIES There is no intraluminal filling defect suspicious for PE. AORTA No thoracic aortic aneurysm or dissection. Extensive scattered calcified atherosclerosis. LUNGS Scattered lung opacities bilaterally, with relative sparing of the left upper lobe. No pulmonary mass. Redemonstration of bilateral reticular pattern and groundglass opacification with a subpleural and basilar distribution with mild traction bronchiectasis and honeycombing. PLEURAL SPACES No pleural effusion. No pneumothorax. HEART Mild cardiomegaly with reflux of IV contrast into the IVC and hepatic veins. No significant pericardial effusion. Coronary artery, aortic valve and mitral anulus calcification. Prior CABG with sternal wires in place. MEDIASTINUM/HILUM Small and mildly prominent mediastinal lymph nodes, which appear smaller since the prior study. The largest is subcarinal measuring 1.3 x 3.0 cm. CHEST WALL The chest wall is unremarkable. ESOPHAGUS Mildly dilated esophagus with diffuse intraluminal debris, new since the prior study. BONES No focal osseous abnormality or acute fracture. Degenerative changes of the spine and both glenohumeral joints. Multiple old left rib fractures. UPPER ABDOMEN Moderate-sized hiatal hernia. CT/CTA Chest W/WO Contrast IMPRESSION: 1. No evidence of pulmonary embolus. 2. Scattered lung opacities bilaterally, likely multifocal infectious process. 3. Bilateral subpleural and basilar reticular pattern and groundglass opacific ation with mild traction bronchiectasis and honeycombing. Findings suggest usual interstitial pneumonia (UIP) pattern of i nterstitial lung disease. 4. Intraluminal debris throughout the esophagus, may reflect esophageal dysmot ility or reflux disease. This patient is at increased risk for aspiration. Reading Location: [id number]
[2025-06-22 16:50] LABS: Troponin T High Sensitivity 10 ng/L (<=14)
[2025-06-22 17:45] LABS: Mucous, Urine 0 SEEN /hpf (<or=2+)
[2025-06-22 17:50] LABS: Color, Urine Yellow (Yellow); Glucose, Dipstick Normal (Normal); Ketone-Dipstick Negative (Negative); Leukocyte Esterase-Dipstick 500 /ul (Negative); Nitrite-Dipstick Negative (Negative); Occult Blood-Urine 50 /ul (Negative); Protein-Dipstick 30 mg/dl (Negative); Specific Gravity, Urine 1.015 (1.002-1.030); Urine Bilirubin Dipstick Negative (Negative)
[2025-06-22 18:02] LABS: Red Blood Cells-Urine 5-10 SEEN /hpf (0-5); Squamous Epithelial Cells - UA 10-25 SEEN /hpf (5-10)
[2025-06-22 19:48] LABS: Troponin T High Sens 2 HR 7 ng/L (<=14)
== END 2025-06-22 20:22 | disposition home or self-care (01) ==
PROVIDERS: Emergency Provider Surgery; PCP Student in an Organized Health Care Education/Training Program; Referring Provider Surgery; Visit Provider Surgery
DX: J18.9 Pneumonia, unspecified organism (principal); I50.9 Heart failure, unspecified; I13.0 Hypertensive heart and chronic kidney disease with heart failure and stage 1 through stage 4 chronic kidney disease, or unspecified chronic kidney disease; J44.9 Chronic obstructive pulmonary disease, unspecified; I48.0 Paroxysmal atrial fibrillation; E11.22 Type 2 diabetes mellitus with diabetic chronic kidney disease; E11.65 Type 2 diabetes mellitus with hyperglycemia; Z79.4 Long term (current) use of insulin; E11.42 Type 2 diabetes mellitus with diabetic polyneuropathy; N18.30 Chronic kidney disease, stage 3 unspecified; N39.0 Urinary tract infection, site not specified; Z90.5 Acquired absence of kidney; Z79.01 Long term (current) use of anticoagulants; Z79.82 Long term (current) use of aspirin; Z79.899 Other long term (current) drug therapy; Z87.891 Personal history of nicotine dependence
CPT/HCPCS: 70450; 71046; 71275; 72125; 80048; 81001; 83880; 84484; 85025; 87086; 87088; 87186; 87631; 93005; 94640; 99285; Q9967; A4216